=== PATIENT | male | born 1950 | race Caucasian/White ===

== ENCOUNTER 2018-02-07 00:57 | Inpatient (IN) | payer MEDICARE, MEDICAID ==
[~2018-02-07] VITALS: Ht 165.1 cm; Wt 49.9 kg
[2018-02-07] VITALS (8 sets, daily range): BP systolic 107–142; BP diastolic 50–91
[~2018-02-07 00:57] MED LIST: ACETAMINOPHEN500 M5 PO; AMOXIL250 MG ORAL; ASPIRIN EC81 MG ORAL; ATORVASTATIN CA20 MG ORAL; CLOTRIMAZOLE30 GM TP; DOCUSATE SODIU100 MG ORAL; ECONAZOLE NITRA15 GM TOP; FORTEO2.4 ML SUBQ; KONDREMUL2.5 ML/5 M PO; LEVOTHYROXINE88 MCG ORAL; LINZESS145 MCG PO; LORATADINE10 M1 PO; MILK OF MA400 MG/51 ORAL; OYSTER SHELL C500 MG PO; PINK BISMUTH262 MG PO; PROLIA60 MG/1 ML SUBQ; Q-TUSSIN DM SY120 ML PO; VITAMIN D-32000 UNI1 PO; ZYPREXA5 MG ORAL
--- NOTE | 2018-02-07 01:05 | Emergency Room Report ---
History of Present Illness General Chief Complaint: Dyspnea/Respdistress Source: EMS, PMD Present Illness HPI Patient is a 67-year-old male brought in by EMS after increased difficulty breathing. Patient prior history of developmental delay, and congestive heart failure. He had recently been diagnosed with pneumonia. The patient had been previously [facility] and subsequently discharged to the [facility]. The patient was started on nonrebreather by EMS had any shortness of breath. Patient was noted to have continued the faculty respirations as well as hypotension. Allergies: Coded Allergies: SULFA (SULFONAMIDE ANTIBIOTICS) (Verified Allergy, Unknown, 09/02/15) Patient History Past Medical History: see triage record Reviewed Nursing Documentation: PMH: Agreed; PSxH: Agreed Nursing Documentation-PMH Past Medical History Deferred: Pt Cognitively Impaired Past Medical History: No History, Except For Hx Cancer: No Hx Gastrointestinal Problems: No Hx Speech Problem: Yes - Difficulty speaking Hx Aphasia: Yes Hx Weakness: Yes - Bilateral lower extremities Review of Systems All Other Systems: limited - by mental status Physical Exam Vital Signs Date Time Temp Pulse Resp B/P (MAP) Pulse Ox O2 Delivery O2 Flow Rate FiO2 02/07/18 00:50 97.3 70 22 112/57 97 Non-Rebreather 15.0 97.3 General Appearance: alert, Chronically Ill ENT: dry mucus membranes Neck: limited range of motion Respiratory: rhonchi, stridor, wheezing Cardiovascular #1: normal peripheral pulses, no edema Gastrointestinal: normal inspection, soft Musculoskeletal: normal inspection Neurologic: motor weakness - right upper extremity, other - eyes open, incomprehensible sounds, withdraws Skin: other - eczematous rash Procedures Central Line Central Line : Consent: Emergent Central Line Lumen: triple Maximal Sterile Barrier Tech: yes cap, yes mask, yes sterile gown, yes sterile gloves, yes large sterile sheet, yes hand hygiene, yes chlorhexidine prep Central Line Postion: femoral (R) Anesthesia: Lidocaine cc's of anesthesia: 4 Complications: none Central Line Post Position: sutured, good blood return Patient Tolerated: Well Complications: None Medical Decision Making Diagnostic Impression: Primary Impression: Down syndrome Additional Impressions: Congenital heart disease, adult Pneumonia ER Course Patient presented for shortness of breath. Differential included but was not limited to anemia, pneumonia, pneumothorax, myocardial infarction, pericardial effusion, congestive heart failure, acidosis. The patient was started on supplemental oxygen. The patient was suctioned by respiratory therapist. He was noted to have a large amount of yellow secretions. Had this somewhat improved the patient's respiratory effort. Chest x-ray one view injured by me showed cardiomegaly with right lower lobe infiltrate patient was noted be relatively hypoxic. The ABG showed normal pH with a relative hypoxemia for nonrebreather.The patient was noted to have the poor IV access. The right the external jugular IV was initially placed which was noted to have subcutaneous infiltration subsequently. The patient was unable to have other IV access established. A right femoral the triple lumen catheter was placed due to lack of IV access with sterile technique. Dr. Guevara was contacted for inpatient management due to primary care physician. Labs Test 02/07/18 01:00 02/07/18 01:10 02/07/18 01:20 Arterial Blood pH 7.436 (7.350-7.450) Arterial Blood Partial Pressure CO2 41.4 mmHg (35.0-45.0) Arterial Blood Partial Pressure O2 77.7 mmHg (75.0-100.0) Arterial Blood HCO3 27.2 mmol/L (22.0-26.0) Arterial Blood Oxygen Saturation 95.2 % (95-100) Arterial Blood Base Excess 2.8 (-2-2) Kashif Test Positive Sodium Level 143 MMOL/L (136-145) Potassium Level 4.7 MMOL/L (3.5-5.1) Chloride Level 106 MMOL/L (98-107) Carbon Dioxide Level 30 MMOL/L (21-32) Anion Gap 7 mmol/L (5-15) Blood Urea Nitrogen 20 mg/dL (7-18) Creatinine 1.6 MG/DL (0.55-1.30) Estimat Glomerular Filtration Rate 43.6 mL/min (>60) Glucose Level 89 MG/DL (74-106) Calcium Level 8.4 MG/DL (8.5-10.1) Phosphorus Level 4.5 MG/DL (2.5-4.9) Magnesium Level 2.1 MG/DL (1.8-2.4) Total Bilirubin 0.3 MG/DL (0.2-1.0) Aspartate Amino Transf (AST/SGOT) 26 U/L (15-37) Alanine Aminotransferase (ALT/SGPT) 53 U/L (12-78) Alkaline Phosphatase 99 U/L (46-116) Total Creatine Kinase 47 U/L (26-308) Creatine Kinase MB 2.1 NG/ML (0.0-3.6) Creatine Kinase MB Relative Index 4.4 Troponin I 0.065 ng/mL (0.000-0.056) Total Protein 7.4 G/DL (6.4-8.2) Albumin 2.6 G/DL (3.4-5.0) Globulin 4.8 g/dL Albumin/Globulin Ratio 0.5 (1.0-2.7) White Blood Count 11.2 K/UL (4.8-10.8) Red Blood Count 4.68 M/UL (4.70-6.10) Hemoglobin 14.5 G/DL (14.2-18.0) Hematocrit 45.4 % (42.0-52.0) Mean Corpuscular Volume 97 FL (80-99) Mean Corpuscular Hemoglobin 31.0 PG (27.0-31.0) Mean Corpuscular Hemoglobin Concent 31.9 G/DL (32.0-36.0) Red Cell Distribution Width 15.0 % (11.6-14.8) Platelet Count 244 K/UL (150-450) Mean Platelet Volume 8.2 FL (6.5-10.1) Neutrophils (%) (Auto) 78.5 % (45.0-75.0) Lymphocytes (%) (Auto) 13.1 % (20.0-45.0) Monocytes (%) (Auto) 6.6 % (1.0-10.0) Eosinophils (%) (Auto) 1.1 % (0.0-3.0) Basophils (%) (Auto) 0.7 % (0.0-2.0) Last Vital Signs Date Time Temp Pulse Resp B/P (MAP) Pulse Ox O2 Delivery O2 Flow Rate FiO2 02/07/18 00:50 97.3 70 22 112/57 97 Non-Rebreather 15.0 97.3 Status: improved Disposition: ADMITTED INPATIENT Condition: Serious Teto Boyer MD Feb 07, 2018 01:05
[2018-02-07 01:42] LABS: BASOPHILS % (AUTO) 0.7 % (0.0-2.0); EOSINOPHILS % (AUTO) 1.1 % (0.0-3.0); HEMATOCRIT 45.4 % (42.0-52.0); HEMOGLOBIN 14.5 G/DL (14.2-18.0); LYMPHOCYTES % (AUTO) 13.1 % (20.0-45.0); MEAN CORPUSCULAR VOLUME 97 FL (80-99); MONOCYTES % (AUTO) 6.6 % (1.0-10.0); NEUTROPHILS % (AUTO) 78.5 % (45.0-75.0); PLATELET COUNT 244 K/UL (150-450); RED BLOOD COUNT 4.68 M/UL (4.70-6.10); WHITE BLOOD COUNT 11.2 K/UL (4.8-10.8)
[2018-02-07 01:57] LABS: ANION GAP 7 mmol/L (5-15); BLOOD UREA NITROGEN 20 mg/dL (7-18); CALCIUM 8.4 MG/DL (8.5-10.1); CARBON DIOXIDE 30 MMOL/L (21-32); CHLORIDE 106 MMOL/L (98-107); CREATININE 1.6 MG/DL (0.55-1.30); POTASSIUM 4.7 MMOL/L (3.5-5.1); SODIUM 143 MMOL/L (136-145)
[2018-02-07 02:20] LABS: ALANINE AMINOTRANSFERASE 53 U/L (12-78); ALBUMIN 2.6 G/DL (3.4-5.0); ALBUMIN/GLOBULIN RATIO 0.5 (1.0-2.7); ALKALINE PHOSPHATASE 99 U/L (46-116); ASPARTATE AMINO TRANSFERASE 26 U/L (15-37); BILIRUBIN,TOTAL 0.3 MG/DL (0.2-1.0); CKMB 2.1 NG/ML (0.0-3.6); CREATINE KINASE 47 U/L (26-308); PHOSPHORUS 4.5 MG/DL (2.5-4.9)
[2018-02-07 02:29] LABS: APPEARANCE,URINE CLEAR; BILIRUBIN, URINE NEGATIVE (NEGATIVE); COLOR,URINE PALE YELLOW; GLUCOSE, URINE (UA) NEGATIVE (NEGATIVE); KETONES,URINE NEGATIVE (NEGATIVE); LEUKOCYTE ESTERASE ,URINE NEGATIVE (NEGATIVE); NITRITE,URINE NEGATIVE (NEGATIVE); PH,URINE 6 (4.5-8.0); PROTEIN,URINE NEGATIVE (NEGATIVE); UROBILINOGEN,URINE NORMAL MG/DL (0.0-1.0)
[2018-02-07] MEDS ORDERED: Piperacillin/Tazobactam 3.375 GM in D5W 110 ML IVPB ONE (03:15)
[2018-02-07] MEDS ORDERED: METOPROLOL SUCC25 MG ORAL (06:21)
[2018-02-07] MEDS ORDERED: LEVOTHYROXINE125 MCG ORAL (06:21)
[2018-02-07] MEDS ORDERED: COLACE100 MG ORAL (06:21)
[2018-02-07] MEDS ORDERED: LEVETIRACETAM500 MG ORAL (06:21)
[2018-02-07] MEDS ORDERED: IPRAT-ALBUT 0.5-3 ML IH (06:21)
[2018-02-07] MEDS ORDERED: MIRALAX17 G2 ORAL (06:21)
[2018-02-07] MEDS ORDERED: PRAVASTATIN SOD20 M1 ORAL (06:22)
[2018-02-07] MEDS ORDERED: Vancomycin 1 GM in D5W 275 ML IVPB SCH (06:45)
[2018-02-07] MEDS ORDERED: Milk of Magnesia 30ml Ud ORAL PRN (06:45)
[2018-02-07] MEDS ORDERED: Metoprolol 5mg/5ml Inj IVP PRN (07:14)
[2018-02-07] MEDS: Albuterol/Ipratropium 3ml neb HHN SCH ×5 (07:51→23:26)
[2018-02-07] MEDS: Metoprolol Tartrate 12.5mg TAB ORAL SCH ×2 (09:00→21:00)
[2018-02-07] MEDS: Docusate 100mg cap ORAL SCH ×2 (09:00→18:00)
[2018-02-07] MEDS: Tums 500mg ORAL SCH ×3 (09:00→18:00)
--- NOTE | 2018-02-07 09:24 | History & Physical ---
Natalia Greenberg NP 02/07/18 0924: History and Physical History & Physicial dictated job# [id number] Diann Silver MD 02/07/18 1914: History and Physical History & Physicial The patient was seen and examined at bedside and all new and available data was reviewed in the patients chart. I agree with the above findings, impression and plan. (Patient seen earlier today. Signature stamp does not reflect patient encounter time.). -MD Dionicio Tobias Jacqueline Robles NP Feb 07, 2018 09:24 Diann Silver MD Feb 07, 2018 19:14
--- NOTE | 2018-02-07 09:24 | Diagnostic Imaging Report ---
Indication: Shortness of breath Technique: One view of the chest Comparison: None Findings: Heart is enlarged. Somewhat ill-defined infiltrate is seen in the right infrahilar region. There is evidence of retrocardiac consolidation. There is central bronchial wall thickening bilaterally. The pleural spaces are clear. There is pleural thickening at both lung apices Impression: Right basilar patchy infiltrate and retrocardiac consolidation Cardiomegaly Central bronchial wall thickening, suspect on the basis of chronic bronchitis although could indicate minimal interstitial edema
[2018-02-07] MEDS: levETIRAcetam 1,000mg/NS100ml 100 ML IVPB SCH ×2 (09:27→21:11)
[2018-02-07] MEDS: D5 1/2NS w/KCl 20mEq 1,000 ML IV SCH (09:28)
[2018-02-07] MEDS: Pantoprazole Inj IVP SCH (10:06)
[2018-02-07] MEDS: Vancomycin 750mg/NS 250ml IVPB SCH (10:13)
--- NOTE | 2018-02-07 12:49 | Consultation ---
Consult Note Assessment/Plan DICT # [id number] Sae Forrest MD Feb 07, 2018 12:49
[2018-02-07] MEDS: Piperacillin/Tazobactam 3.375 GM in D5W 110 ML IVPB SCH ×2 (13:40→22:11)
[2018-02-07] MEDS: Heparin 5000 units/ml inj SUBQ SCH ×2 (15:37→22:12)
[2018-02-07] MEDS ORDERED: Tubing IV Secondary IV ONE (15:46)
--- NOTE | 2018-02-07 21:30 | HX and Phyl Repo 2 Sig ---
DATE OF ADMISSION: 02/07/2018 CHIEF COMPLAINT: Shortness of breath. HISTORY OF PRESENT ILLNESS: The patient is a 67-year-old male, well-known office patient, with history of mental retardation, who was previously residing in a custodial, however, recently, during the past several months had progressive decline and had been less mobile and was transferred to a SNF, was brought in by EMS from retirement after increased difficulty breathing. He was recently admitted at [facility] due to pneumonia and was discharged a day ago to [facility]. At the retirement, he was noted to be with labored breathing. EMS was called in and the patient was transported to [facility] ER and on evaluation was admitted for pneumonia. MEDICAL HISTORY: Significant for mental retardation, hypotension, dysphagia, and congestive heart failure. ALLERGY: Noted allergic to sulfa. REVIEW OF SYSTEMS: Unable to be performed due to the patient's mental status. PHYSICAL EXAMINATION: VITAL SIGNS: On arrival to ED, blood pressure was 112/57, pulse 70, temperature 97.3, RR 22, and saturating 97% on a non-rebreather mask. GENERAL APPEARANCE: The patient is awake, able to open eyes on verbal commands, although the patient is nonverbal at baseline. HEENT: Normocephalic. Positive diplopia. NECK: Has limited motion. RESPIRATORY: Positive for rhonchi on bilateral bases and negative wheezing. CARDIOVASCULAR: S1 and S2. Regular rate and rhythm. GASTROINTESTINAL: The patient's abdomen is soft and slightly distended. Not firm. Positive bowel sounds. GENITOURINARY: The patient has a condom catheter. NEUROLOGIC: Has generalized weakness on all extremities. Unable to be fully assessed. SKIN: Has eczematous rash on both lower extremities. DIAGNOSTIC DATA: WBC 11.2, hemoglobin 14, hematocrit 45, and platelet is 244,000. Sodium 143, potassium 4.7, chloride 106, BUN 20, and creatinine 1.6. ABG showed pH 7.4, CO2 41, O2 77, and bicarb 27.2 with base excess of 2.8 and O2 saturation of 95. Lactic acid 2.7. Initial troponin 0.065. ASSESSMENT: 1. Shortness of breath, possibly secondary to pneumonia, possible sepsis. 2. Acute respiratory failure requiring BiPAP. 3. Acute kidney injury. 4. Elevated troponin, possibly from demand ischemia. 5. Developmental delay. 6. Dysphagia. 7. Eczematous rash on both lower extremities. PLAN: 1. Continue the patient on BiPAP support. 2. Monitor vitals and I and O's. 3. Keep NPO for now until fully awake and pending swallow evaluation. 4. The patient was started on IV vancomycin and Zosyn. 5. To continue breathing treatment with frequent suctioning p.r.n. 6. Continue retirement medications. 7. Monitor troponin. 8. Heparin for DVT prophylaxis. 9. Protonix for GI prophylaxis. 10. Dr. Forrest, Pulmonary consult and Dr. Johnston, ID consult. Above findings and plans were discussed with supervising physician, who agrees with plan of care. Diann Silver M.D. Natalia Greenberg N.P. DR: PEYTON JOB#: [id number] CC: APOLLO
[2018-02-08] VITALS: BP 153/63
[2018-02-08] MEDS: D5 1/2NS w/KCl 20mEq 1,000 ML IV SCH ×2 (01:02→17:30)
[2018-02-08] MEDS: Albuterol/Ipratropium 3ml neb HHN SCH ×6 (03:38→23:10)
[2018-02-08 04:00] VITALS: BP_SYST 106; BP_SYST 145; BP_DIAS 72; BP_DIAS 81
[2018-02-08] MEDS: Piperacillin/Tazobactam 3.375 GM in D5W 110 ML IVPB SCH ×3 (05:56→22:03)
[2018-02-08] MEDS: Heparin 5000 units/ml inj SUBQ SCH ×3 (06:00→22:04)
--- NOTE | 2018-02-08 06:45 | Consultation ---
DATE OF CONSULTATION: 02/07/2018 PULMONARY CONSULTATION CONSULTING PHYSICIAN: Sae Forrest M.D. REFERRING PHYSICIAN: Diann Silver M.D. REASON FOR CONSULTATION: Respiratory failure. HISTORY OF PRESENT ILLNESS: The patient is a 67-year-old male with a history of mental retardation and chronic subdural hematoma, recently admitted at [facility] and discharged on the , two days ago, after presenting with respiratory failure. He was thought to have a URI versus tracheobronchitis/early pneumonia. He was initially treated with antibiotics, but given negative procalcitonin, no infiltrates and afebrile status, antibiotics were discontinued. He was doing well on the day of discharge. The biggest issue was felt to be mucociliary clearance. He was treated with [id number] and p.r.n. DuoNebs via [employer], chest physiotherapy, and ultimately discharged back to the facility. Dr. Silver spoke with the [facility] and it was determined that the patient should remain Full Code. The patient was discharged to [facility] but he came in with EMS overnight with difficulty breathing, cough, and congestion. He was initially on a non-rebreather, but was noted to be hypoxemic. Chest x-ray was concerning for possible right lower lobe infiltrate, though on final read and upon my assessment, likely just some atelectasis. Nonetheless, the patient was started on empiric broad-spectrum antimicrobial agents and started on BiPAP. His white count is 11.2. The last CBC at [facility] on 01/30/2018, his white count was 9.7. He also had a video swallow during this last admission, which he passed for purees. He had lactic acidosis upon presentation here and an elevated troponin of 0.065. His lactic acidosis has since resolved. His UA was unremarkable. PAST MEDICAL HISTORY: 1. Down syndrome with mental retardation. 2. Pneumonia and pleural effusion in the past. 3. Hypothyroidism. 4. Congestive heart failure. 5. Eczema. 6. Chronic subdural hematomas. ALLERGIES: Sulfa. MEDICATIONS: Prior to admission, medications reviewed. Current medications, reviewed. SOCIAL HISTORY: Lives in a [facility], was at SNF. Currently, no tobacco, alcohol, or drug use. FAMILY HISTORY: Noncontributory. REVIEW OF SYSTEMS: Unobtainable. PHYSICAL EXAMINATION: VITAL SIGNS: Temperature 97.3, pulse 62, and blood pressure 107/55. GENERAL: He is a developmentally delayed male, in no acute distress on BiPAP. HEENT: Normocephalic and atraumatic. Oropharynx is clear with moist mucous membranes. NECK: Supple without lymphadenopathy. CHEST: Scattered rhonchi. HEART: Regular rhythm. ABDOMEN: Soft, nontender, and nondistended. EXTREMITIES: No cyanosis, clubbing, or edema. ANCILLARY DATA: White count 11.2, hemoglobin 14.5, and platelet count 244,000. ABG 7.43/41/77/27/95. Sodium 142, potassium 4.7, chloride 106, bicarbonate 30, BUN 20, and creatinine 1.6. Lactic acid 2.7, followup 1.7, and calcium 8.4. LFTs within normal limits. Phosphorus 4.5 and magnesium 2.1. Troponin 0.065. Total protein 7.4, albumin 2.6, and globulin 4.8. Urinalysis negative. Chest x-ray, possible right perihilar infiltrate. ASSESSMENT: The patient is a 67-year-old male with a history of mental retardation and chronic subdural hematomas, recently admitted to [facility] with tracheobronchitis and poor mucociliary clearance, now presenting with dehydration, mild troponin elevation, acute kidney injury, and possible right infrahilar infiltrate. PROBLEM LIST: 1. Respiratory failure, on BiPAP. 2. Right perihilar infiltrate, healthcare-associated pneumonia. 3. Acute kidney injury, likely dehydration. 4. Mild troponin elevation, likely demand ischemia. 5. History of recurrent aspiration pneumonia in the past. 6. Chronic subdural hematoma. 7. Mental retardation. 8. Hypothyroidism. 9. Chronic right bundle-branch block. TREATMENT PLAN: 1. Change BiPAP to p.r.n./nightly. 2. Attempt to wean off BiPAP now. 3. Titrate FiO2 to keep saturations greater than 90%. 4. Continue broad-spectrum antibiotics per ID. 5. Follow up cultures. 6. [id number] and p.r.n. DuoNebs. 7. Frequent suctioning. 8. Chest physiotherapy. 9. Mucinex and p.r.n. Robitussin. 10. Once the patient is stable off BiPAP, would advance diet with strict aspiration precautions. 11. Check D-dimer and a repeat troponin. 12. Deep venous thrombosis prophylaxis heparin subcutaneous. 13. Dr. Silver previously discussed the code status with the [facility] and it was determined for the patient to remain Full Code. Dr. Silver, thank you for allowing me to assist in the care of the patient. If I may be of any assistance in the future, please do not hesitate to ask. Sae Forrest M.D. DR: XIMENA JOB#: [id number] CC:
[2018-02-08 08:00] VITALS: BP 136/74
[2018-02-08 08:39] LABS: BASOPHILS % (AUTO) 0.8 % (0.0-2.0); EOSINOPHILS % (AUTO) 0.8 % (0.0-3.0); HEMATOCRIT 42.6 % (42.0-52.0); HEMOGLOBIN 13.7 G/DL (14.2-18.0); LYMPHOCYTES % (AUTO) 12.5 % (20.0-45.0); MEAN CORPUSCULAR VOLUME 97 FL (80-99); MONOCYTES % (AUTO) 7.2 % (1.0-10.0); NEUTROPHILS % (AUTO) 78.7 % (45.0-75.0); PLATELET COUNT 220 K/UL (150-450); RED BLOOD COUNT 4.41 M/UL (4.70-6.10); RED CELL DISTRIBUTION WIDTH 14.6 % (11.6-14.8); WHITE BLOOD COUNT 9.9 K/UL (4.8-10.8)
[2018-02-08] MEDS: Tums 500mg ORAL SCH ×3 (09:00→17:56)
[2018-02-08] MEDS: Docusate 100mg cap ORAL SCH ×2 (09:00→17:55)
[2018-02-08] MEDS: Metoprolol Tartrate 12.5mg TAB ORAL SCH ×3 (09:00→21:25)
[2018-02-08 09:05] LABS: ALANINE AMINOTRANSFERASE 35 U/L (12-78); ALBUMIN 2.5 G/DL (3.4-5.0); ALBUMIN/GLOBULIN RATIO 0.5 (1.0-2.7); ALKALINE PHOSPHATASE 90 U/L (46-116); ANION GAP 7 mmol/L (5-15); ASPARTATE AMINO TRANSFERASE 23 U/L (15-37); BILIRUBIN,TOTAL 0.8 MG/DL (0.2-1.0); BLOOD UREA NITROGEN 10 mg/dL (7-18); CALCIUM 8.6 MG/DL (8.5-10.1); CARBON DIOXIDE 26 MMOL/L (21-32); CHLORIDE 102 MMOL/L (98-107); POTASSIUM 4.2 MMOL/L (3.5-5.1); SODIUM 135 MMOL/L (136-145)
[2018-02-08] MEDS: Vancomycin 750mg/NS 250ml IVPB SCH (09:26)
[2018-02-08] MEDS: levETIRAcetam 1,000mg/NS100ml 100 ML IVPB SCH ×2 (09:27→21:24)
[2018-02-08] MEDS: Pantoprazole Inj IVP SCH (09:32)
--- NOTE | 2018-02-08 11:03 | Diagnostic Imaging Report ---
Indication: Dyspnea Comparison: 02/07/2018 A single view chest radiograph was obtained. Findings: Pulmonary edema has resolved essentially since the last exam. Heart remains mildly enlarged though improved. Vascular pedicle is normal size. IMPRESSION: Interval diuresis or dialysis with improved vascular status and resolution of CHF
--- NOTE | 2018-02-08 11:04 | Infectious Diseases Prog Note ---
Assessment/Plan Assessment/Plan antibiotics : vancomycin iv, zosyn A 1. pneumonia 2. respiratory failure 3. subdural hematoma 4. mental retardation P 1. continue vancomycin iv, zosyn 2. will follow up cultures Subjective ROS Limited/Unobtainable: Yes Allergies: Coded Allergies: SULFA (SULFONAMIDE ANTIBIOTICS) (Verified Allergy, Unknown, 09/02/15) Objective Vital Signs Last 24 Hour Vital Signs Date Time Temp Pulse Resp B/P (MAP) Pulse Ox O2 Delivery O2 Flow Rate FiO2 02/08/18 10:40 71 18 97 Full Face 60 02/08/18 09:00 75 136/74 02/08/18 08:40 75 17 99 Facial 60 02/08/18 08:39 61 02/08/18 08:00 Bi-pap 02/08/18 08:00 98.5 75 17 136/74 (94) 95 98.5 02/08/18 08:00 60 02/08/18 07:29 60 02/08/18 07:29 70 17 100 Bi-pap 60 02/08/18 07:18 74 17 100 Facial 60 02/08/18 07:17 72 16 100 Bi-pap 60 02/08/18 05:30 72 19 100 Full Face 60 02/08/18 04:00 98.0 70 18 106/72 (83) 99 98.0 02/08/18 04:00 Bi-pap 02/08/18 04:00 60 02/08/18 04:00 72 02/08/18 03:48 60 02/08/18 03:48 78 18 100 Bi-pap 60 02/08/18 03:39 69 18 100 Full Face 60 02/08/18 03:38 69 18 100 Bi-pap 60 02/08/18 01:30 75 18 100 Facial 60 02/08/18 00:00 Bi-pap 02/08/18 00:00 84 02/08/18 00:00 97.6 73 22 153/63 (93) 100 97.6 02/08/18 00:00 60 02/07/18 23:46 73 18 100 Bi-pap 60 02/07/18 23:46 60 02/07/18 23:28 73 18 100 Facial 60 02/07/18 23:26 72 18 100 Bi-pap 60 02/07/18 21:00 71 18 99 Facial 60 02/07/18 21:00 64 113/91 02/07/18 20:00 98.1 64 17 113/91 (98) 100 98.1 02/07/18 20:00 60 02/07/18 20:00 Bi-pap 02/07/18 20:00 71 02/07/18 19:24 69 18 100 Bi-pap 60 02/07/18 19:24 60 02/07/18 19:06 73 18 100 Facial 60 02/07/18 19:03 74 18 100 Bi-pap 60 02/07/18 17:10 62 18 98 Facial 60 02/07/18 17:08 67 02/07/18 16:00 60 02/07/18 16:00 97.7 64 18 142/50 (80) 100 97.7 02/07/18 16:00 Bi-pap 02/07/18 15:15 60 18 100 Bi-pap 60 02/07/18 15:12 60 18 98 Facial 60 02/07/18 15:06 60 02/07/18 15:06 63 16 98 Bi-pap 60 02/07/18 14:30 60 02/07/18 12:41 52 18 98 Full Face 60 02/07/18 12:00 60 02/07/18 12:00 Bi-pap 02/07/18 12:00 97.3 62 18 107/55 (72) 100 97.3 02/07/18 11:13 66 18 100 Bi-pap 60 02/07/18 11:07 52 18 98 Full Face 60 02/07/18 11:00 60 02/07/18 11:00 60 18 98 Bi-pap 60 Height (Feet): 5 Height (Inches): 2.00 Weight (Pounds): 108 HEENT: other - on bipap Respiratory/Chest: lungs clear Cardiovascular: normal rate, regular rhythm, no gallop/murmur Abdomen: soft, non tender Extremities: no edema, other - right groin catheter Skin: rash - erythematous rash on legs Microbiology Date/Time Source Procedure Growth Status 02/07/18 01:10 Blood Blood Culture - Preliminary NO GROWTH AFTER 24 HOURS Resulted 02/07/18 00:50 Blood Blood Culture - Preliminary NO GROWTH AFTER 24 HOURS Resulted 02/07/18 02:19 Rectum Received Laboratory Tests Test 02/07/18 18:18 02/07/18 18:19 02/08/18 08:20 D-Dimer 1.92 mg/L FEU (0.00-0.49) H Troponin I 0.032 ng/mL (0.000-0.056) 0.042 ng/mL (0.000-0.056) White Blood Count 9.9 K/UL (4.8-10.8) Red Blood Count 4.41 M/UL (4.70-6.10) L Hemoglobin 13.7 G/DL (14.2-18.0) L Hematocrit 42.6 % (42.0-52.0) Mean Corpuscular Volume 97 FL (80-99) Mean Corpuscular Hemoglobin 31.0 PG (27.0-31.0) Mean Corpuscular Hemoglobin Concent 32.1 G/DL (32.0-36.0) Red Cell Distribution Width 14.6 % (11.6-14.8) Platelet Count 220 K/UL (150-450) Mean Platelet Volume 7.6 FL (6.5-10.1) Neutrophils (%) (Auto) 78.7 % (45.0-75.0) H Lymphocytes (%) (Auto) 12.5 % (20.0-45.0) L Monocytes (%) (Auto) 7.2 % (1.0-10.0) Eosinophils (%) (Auto) 0.8 % (0.0-3.0) Basophils (%) (Auto) 0.8 % (0.0-2.0) Sodium Level 135 MMOL/L (136-145) L Potassium Level 4.2 MMOL/L (3.5-5.1) Chloride Level 102 MMOL/L (98-107) Carbon Dioxide Level 26 MMOL/L (21-32) Anion Gap 7 mmol/L (5-15) Blood Urea Nitrogen 10 mg/dL (7-18) Creatinine 1.0 MG/DL (0.55-1.30) Estimat Glomerular Filtration Rate > 60 mL/min (>60) Glucose Level 120 MG/DL (74-106) H Calcium Level 8.6 MG/DL (8.5-10.1) Total Bilirubin 0.8 MG/DL (0.2-1.0) Aspartate Amino Transf (AST/SGOT) 23 U/L (15-37) Alanine Aminotransferase (ALT/SGPT) 35 U/L (12-78) Alkaline Phosphatase 90 U/L (46-116) Pro-B-Type Natriuretic Peptide 894 pg/mL (0-125) H Total Protein 7.4 G/DL (6.4-8.2) Albumin 2.5 G/DL (3.4-5.0) L Globulin 4.9 g/dL Albumin/Globulin Ratio 0.5 (1.0-2.7) L Current Medications Medications (Trade) Dose Ordered Sig/Eddy Route PRN Reason Start Time Stop Time Status Last Admin Dose Admin Acetaminophen (Tylenol) 650 mg Q6H PRN ORAL Mild Pain/Temp > 100.5 02/07/18 06:45 03/09/18 06:44 Albuterol/ Ipratropium (Albuterol/ Ipratropium) 3 ml Q4H HHN 02/07/18 06:45 02/12/18 06:44 02/08/18 07:17 Atorvastatin Calcium (Lipitor) 10 mg BEDTIME ORAL 02/07/18 21:00 03/09/18 20:59 Calcium Carbonate (Tums) 500 mg THREE TIMES A DAY ORAL 02/07/18 09:00 03/09/18 08:59 Dextrose/ Electrolytes 1,000 ml @ 60 mls/hr [id number] IV 02/07/18 08:00 03/09/18 07:59 02/08/18 01:02 Docusate Sodium (Colace) 100 mg TWICE A DAY ORAL 02/07/18 09:00 03/09/18 08:59 Heparin Sodium (Porcine) (Heparin 5000 units/ml) 5,000 units EVERY 8 HOURS SUBQ 02/07/18 14:00 03/09/18 13:59 02/08/18 06:00 Levetiracetam 100 ml @ 400 mls/hr Q12HR IVPB 02/07/18 09:00 03/09/18 08:59 02/08/18 09:27 Levothyroxine Sodium (Synthroid) 125 mcg DAILY IV 02/07/18 09:00 03/09/18 08:59 02/08/18 09:04 Magnesium Hydroxide (Mom) 30 ml HSPRN PRN ORAL Constipation 02/07/18 06:45 03/09/18 06:44 Metoprolol Tartrate (Lopressor) 5 mg Q4H PRN IVP hr>130 02/07/18 07:14 03/09/18 07:13 Metoprolol Tartrate (Lopressor) 12.5 mg Q12HR ORAL 02/07/18 09:00 03/09/18 08:59 Olanzapine (ZyPREXA) 5 mg DAILY ORAL 02/07/18 09:00 03/09/18 08:59 Pantoprazole (Protonix) 40 mg DAILY IVP 02/07/18 09:21 03/09/18 09:20 02/08/18 09:32 Piperacillin Sod/ Tazobactam Sod 3.375 gm/Dextrose 110 ml @ 27.5 mls/hr EVERY 8 HOURS IVPB 02/07/18 14:00 02/12/18 13:59 02/08/18 05:56 Vancomycin HCl (Vanco rx to dose) 1 ea DAILY PRN MISC PER PHARMACY 02/07/18 07:30 03/09/18 07:29 Vancomycin/Sodium Chloride 250 ml @ 166.667 mls/hr Q24H IVPB 02/07/18 09:00 02/12/18 08:59 02/08/18 09:26 NINA ALVARADO Feb 08, 2018 11:04
[2018-02-08 12:00] VITALS: BP 122/78
--- NOTE | 2018-02-08 13:15 | General Progress Note ---
Assessment/Plan Status: progressing Assessment/Plan ASSESSMENT: 1. Shortness of breath, possibly secondary to pneumonia, possible sepsis. 2. Acute respiratory failure requiring BiPAP. 3. Acute kidney injury. 4. Elevated troponin, possibly from demand ischemia. 5. Developmental delay. 6. Dysphagia. 7. Psoriasis. PLAN: 1. Continue the patient on BiPAP support. 2. Monitor vitals and I and O's. 3. Keep NPO for now until fully awake and pending swallow evaluation. 4. The patient was started on IV vancomycin and Zosyn. 5. To continue breathing treatment with frequent suctioning p.r.n. 6. Continue mcc medications. 7. Monitor troponin. 8. Heparin for DVT prophylaxis. 9. Protonix for GI prophylaxis. 10. Dr. Forrest, Pulmonary consult and Dr. Johnston, ID consult. will order MRI brain to rule out cva gi consult Subjective Date patient seen: Feb 08, 2018 ROS Limited/Unobtainable: Yes Allergies: Coded Allergies: SULFA (SULFONAMIDE ANTIBIOTICS) (Verified Allergy, Unknown, 09/02/15) Objective Last 24 Hour Vital Signs Date Time Temp Pulse Resp B/P (MAP) Pulse Ox O2 Delivery O2 Flow Rate FiO2 02/08/18 12:00 97.3 76 20 122/78 (93) 100 97.3 02/08/18 11:29 68 16 98 Bi-pap 60 02/08/18 10:40 71 18 97 Full Face 60 02/08/18 09:00 75 136/74 02/08/18 08:40 75 17 99 Facial 60 02/08/18 08:39 61 02/08/18 08:00 Bi-pap 02/08/18 08:00 98.5 75 17 136/74 (94) 95 98.5 02/08/18 08:00 60 02/08/18 07:29 60 02/08/18 07:29 70 17 100 Bi-pap 60 02/08/18 07:18 74 17 100 Facial 60 02/08/18 07:17 72 16 100 Bi-pap 60 02/08/18 05:30 72 19 100 Full Face 60 02/08/18 04:00 98.0 70 18 106/72 (83) 99 98.0 02/08/18 04:00 Bi-pap 02/08/18 04:00 60 02/08/18 04:00 72 10/18 03:48 60 02/08/18 03:48 78 18 100 Bi-pap 60 02/08/18 03:39 69 18 100 Full Face 60 02/08/18 03:38 69 18 100 Bi-pap 60 02/08/18 01:30 75 18 100 Facial 60 02/08/18 00:00 Bi-pap 02/08/18 00:00 84 02/08/18 00:00 97.6 73 22 153/63 (93) 100 97.6 02/08/18 00:00 60 02/07/18 23:46 73 18 100 Bi-pap 60 02/07/18 23:46 60 02/07/18 23:28 73 18 100 Facial 60 02/07/18 23:26 72 18 100 Bi-pap 60 02/07/18 21:00 71 18 99 Facial 60 02/07/18 21:00 64 113/91 02/07/18 20:00 98.1 64 17 113/91 (98) 100 98.1 02/07/18 20:00 60 02/07/18 20:00 Bi-pap 02/07/18 20:00 71 02/07/18 19:24 69 18 100 Bi-pap 60 02/07/18 19:24 60 02/07/18 19:06 73 18 100 Facial 60 02/07/18 19:03 74 18 100 Bi-pap 60 02/07/18 17:10 62 18 98 Facial 60 02/07/18 17:08 67 02/07/18 16:00 60 02/07/18 16:00 97.7 64 18 142/50 (80) 100 97.7 02/07/18 16:00 Bi-pap 02/07/18 15:15 60 18 100 Bi-pap 60 02/07/18 15:12 60 18 98 Facial 60 02/07/18 15:06 60 02/07/18 15:06 63 16 98 Bi-pap 60 02/07/18 14:30 60 Intake and Output 02/07/18 02/08/18 19:00 07:00 Intake Total 1025.834 ml 897.5 ml Output Total 400 ml 700 ml Balance 625.834 ml 197.5 ml Intake Oral 0 ml IV Total 1025.834 ml 897.5 ml Output Urine Total 400 ml 700 ml Laboratory Tests 02/07/18 18:18: D-Dimer 1.92H 02/07/18 18:19: Troponin I 0.032 02/08/18 08:20: Troponin I 0.042, White Blood Count 9.9, Red Blood Count 4.41L, Hemoglobin 13.7L , Hematocrit 42.6, Mean Corpuscular Volume 97, Mean Corpuscular Hemoglobin 31.0 , Mean Corpuscular Hemoglobin Concent 32.1, Red Cell Distribution Width 14.6, Platelet Count 220, Mean Platelet Volume 7.6, Neutrophils (%) (Auto) 78.7H, Lymphocytes (%) (Auto) 12.5L, Monocytes (%) (Auto) 7.2, Eosinophils (%) (Auto) 0.8, Basophils (%) (Auto) 0.8, Sodium Level 135L, Potassium Level 4.2, Chloride Level 102, Carbon Dioxide Level 26, Anion Gap 7, Blood Urea Nitrogen 10, Creatinine 1.0, Estimat Glomerular Filtration Rate > 60, Glucose Level 120H, Calcium Level 8.6, Total Bilirubin 0.8, Aspartate Amino Transf (AST/SGOT) 23, Alanine Aminotransferase (ALT/SGPT) 35, Alkaline Phosphatase 90, Pro-B-Type Natriuretic Peptide 894H, Total Protein 7.4, Albumin 2.5L, Globulin 4.9, Albumin /Globulin Ratio 0.5L Height (Feet): 5 Height (Inches): 2.00 Weight (Pounds): 108 General Appearance: no apparent distress, alert EENT: PERRL/EOMI, pharynx normal Neck: non-tender, supple Cardiovascular: normal rate, regular rhythm, no gallop/murmur, no JVD Respiratory/Chest: no respiratory distress Abdomen: non tender, soft, no mass Extremities: non-tender, normal inspection, no calf tenderness Edema: no edema noted Arm (L), no edema noted Arm (R), no edema noted Leg (L), no edema noted Leg (R), no edema noted Pedal (L), no edema noted Pedal (R), no edema noted Generalized Neurologic: responsive Lymphatic: normal anterior cervical (L), normal anterior cervical (R), normal posterior cervical (L), normal posterior cervical (R), normal submandibular (L) , normal submandibular (R), normal supraclavicular (L), normal supraclavicular ( R), normal axillary (L), normal axillary (R), normal inguinal (L), normal inguinal (R), normal other Diann Silver MD Feb 08, 2018 13:15
[2018-02-08 16:00] VITALS: BP_SYST 118; BP_SYST 91; BP_DIAS 53; BP_DIAS 87
--- NOTE | 2018-02-08 16:45 | Consultation ---
DATE OF CONSULTATION: 02/07/2018 INFECTIOUS DISEASE CONSULTATION CONSULTING PHYSICIAN: Wilbur Escudero M.D. This consult is for coverage of Dr. Johnston. PRIMARY ATTENDING PHYSICIAN: Diann Silver M.D. REASON FOR CONSULTATION: Pneumonia, bronchitis. HISTORY OF PRESENT ILLNESS: This is a 67-year-old white male admitted from a nursing facility because of shortness of breath. The patient has developmental delay and is not a source of history. He has history of recent hospitalization in [facility] because of pneumonia. From there, he was transferred to [facility]. PAST MEDICAL HISTORY: Significant for Down syndrome, hypothyroidism, seizure disorder, CHF. ALLERGIES: Allergic to sulfa drugs. MEDICATIONS: Atorvastatin Zosyn heparin Protonix Keppra levothyroxine Colace Zyprexa, metoprolol, vancomycin, albuterol/ipratropium inhaler, Tylenol, milk of magnesia. SOCIAL HISTORY: long-term resident. No history obtainable by the patient. PHYSICAL EXAMINATION: VITAL SIGNS: Temperature 97.3, pulse 66, blood pressure is 124/65. GENERAL APPEARANCE: The patient is on BiPAP. HEENT: He has pink conjunctivae. HEART: He has normal rate. LUNGS: He has poor expansion and decreased sounds. There is some mild wheezing. ABDOMEN: Soft, nontender. EXTREMITIES: He has no edema. LABORATORY AND DIAGNOSTIC DATA: WBC 11.2, hemoglobin 14.5, hematocrit 45.4, platelet 244,000. Sodium 143, potassium 4.7, chloride 106, bicarbonate 30, BUN 20, creatinine 1.6. Lactic acid first was 2.7 and came down to 1.7. Troponin is slightly elevated at 0.065. LFT are within normal limit. Chest x-ray showed right basilar patchy infiltrate, retrocardiac consolidation, central bronchioli thickening suspicious for chronic bronchitis. IMPRESSION: Pneumonia, chronic bronchitis, developmental delay likely Down syndrome, lactic acidosis that resolved, hypothyroidism, CHF by history, seizure disorder by history. RECOMMENDATION: We will continue with vancomycin and Zosyn. We will follow up the cultures. At the end of my exam, I thank Dr. Silver for involving me in the care of this patient. Wilbur Escudero M.D. DR: Ata JOB#: [id number] CC:
[2018-02-08 20:00] VITALS: BP 101/60
--- NOTE | 2018-02-08 22:31 | Pulmonology Progress Note ---
Assessment/Plan Assessment/Plan PULMONARY FOLLOW UP NOTE HISTORY OF PRESENT ILLNESS: The patient is a 67-year-old male with a history of mental retardation and chronic subdural hematoma, recently admitted at [facility] and discharged on the , two days ago, after presenting with respiratory failure. He was thought to have a URI versus tracheobronchitis/early pneumonia. He was initially treated with antibiotics, but given negative procalcitonin, no infiltrates and afebrile status, antibiotics were discontinued. He was doing well on the day of discharge. The biggest issue was felt to be mucociliary clearance. He was treated with [id number] and p.r.n. DuoNebs via [facility], chest physiotherapy, and ultimately discharged back to the facility. Dr. Silver spoke with the [facility] and it was determined that the patient should remain Full Code. The patient was discharged to [facility] but he came in with EMS overnight with difficulty breathing, cough, and congestion. He was initially on a non-rebreather, but was noted to be hypoxemic. Chest x-ray was concerning for possible right lower lobe infiltrate, though on final read and upon my assessment, likely just some atelectasis. Nonetheless, the patient was started on empiric broad-spectrum antimicrobial agents and started on BiPAP. His white count is 11.2. The last CBC at [facility] on 01/30/2018, his white count was 9.7. He also had a video swallow during this last admission, which he passed for purees. He had lactic acidosis upon presentation here and an elevated troponin of 0.065. His lactic acidosis has since resolved. His UA was unremarkable. PAST MEDICAL HISTORY: 1. Down syndrome with mental retardation. 2. Pneumonia and pleural effusion in the past. 3. Hypothyroidism. 4. Congestive heart failure. 5. Eczema. 6. Chronic subdural hematomas. ALLERGIES: Sulfa. MEDICATIONS: Prior to admission, medications reviewed. Current medications, reviewed. SOCIAL HISTORY: Lives in a alf for mentally challenged patients, was at SNF. Currently, no tobacco, alcohol, or drug use. FAMILY HISTORY: Noncontributory. REVIEW OF SYSTEMS: Unobtainable. PHYSICAL EXAMINATION: VITAL SIGNS: Temperature 97.3, pulse 62, and blood pressure 107/55. GENERAL: He is a developmentally delayed male, in no acute distress on BiPAP. HEENT: Normocephalic and atraumatic. Oropharynx is clear with moist mucous membranes. NECK: Supple without lymphadenopathy. CHEST: Scattered rhonchi. HEART: Regular rhythm. ABDOMEN: Soft, nontender, and nondistended. EXTREMITIES: No cyanosis, clubbing, or edema. ANCILLARY DATA: White count 11.2, hemoglobin 14.5, and platelet count 244,000. ABG 7.43/41/77/27/95. Sodium 142, potassium 4.7, chloride 106, bicarbonate 30, BUN 20, and creatinine 1.6. Lactic acid 2.7, followup 1.7, and calcium 8.4. LFTs within normal limits. Phosphorus 4.5 and magnesium 2.1. Troponin 0.065. Total protein 7.4, albumin 2.6, and globulin 4.8. Urinalysis negative. Chest x-ray, possible right perihilar infiltrate. ASSESSMENT: The patient is a 67-year-old male with a history of mental retardation and chronic subdural hematomas, recently admitted to [facility] with tracheobronchitis and poor mucociliary clearance, now presenting with dehydration, mild troponin elevation, acute kidney injury, and possible right infrahilar infiltrate. PROBLEM LIST: 1. Respiratory failure, on BiPAP. 2. Right perihilar infiltrate, healthcare-associated pneumonia. 3. Acute kidney injury, likely dehydration. 4. Mild troponin elevation, likely demand ischemia. 5. History of recurrent aspiration pneumonia in the past. 6. Chronic subdural hematoma. 7. Mental retardation. 8. Hypothyroidism. 9. Chronic right bundle-branch block. TREATMENT PLAN: 1. Change BiPAP to p.r.n./nightly. 2. Attempt to wean off BiPAP now. 3. Titrate FiO2 to keep saturations greater than 90%. 4. Continue broad-spectrum antibiotics per ID. 5. Follow up cultures. 6. [id number] and p.r.n. DuoNebs. 7. Frequent suctioning. 8. Chest physiotherapy. 9. Mucinex and p.r.n. Robitussin. 10. Once the patient is stable off BiPAP, would advance diet with strict aspiration precautions. 11. Check D-dimer and a repeat troponin. 12. Deep venous thrombosis prophylaxis heparin subcutaneous. 13. Dr. Silver previously [facility] and it was determined for the patient to remain Full Code. Subjective ROS Limited/Unobtainable: No Allergies: Coded Allergies: SULFA (SULFONAMIDE ANTIBIOTICS) (Verified Allergy, Unknown, 09/02/15) Objective Last 24 Hour Vital Signs Date Time Temp Pulse Resp B/P (MAP) Pulse Ox O2 Delivery O2 Flow Rate FiO2 02/08/18 20:07 60 18 100 Venturi Mask 12.0 50 02/08/18 19:58 63 20 95 Venturi Mask 12.0 50 02/08/18 16:00 Venturi Mask 02/08/18 16:00 97.8 56 16 118/87 (97) 100 97.8 02/08/18 15:34 54 18 100 Bi-pap 60 02/08/18 15:33 56 02/08/18 15:27 56 19 100 Bi-pap 60 02/08/18 14:30 50 02/08/18 14:30 74 23 99 Full Face 50 02/08/18 12:40 73 16 100 Full Face 60 02/08/18 12:00 60 02/08/18 12:00 Bi-pap 02/08/18 12:00 97.3 76 20 122/78 (93) 100 97.3 02/08/18 11:57 64 02/08/18 11:36 66 16 100 Bi-pap 60 02/08/18 11:36 60 02/08/18 11:29 68 16 98 Bi-pap 60 02/08/18 10:40 71 18 97 Full Face 60 02/08/18 09:00 75 136/74 02/08/18 08:40 75 17 99 Facial 60 02/08/18 08:39 61 02/08/18 08:00 Bi-pap 02/08/18 08:00 98.5 75 17 136/74 (94) 95 98.5 02/08/18 08:00 60 02/08/18 07:29 60 02/08/18 07:29 70 17 100 Bi-pap 60 02/08/18 07:18 74 17 100 Facial 60 02/08/18 07:17 72 16 100 Bi-pap 60 02/08/18 05:30 72 19 100 Full Face 60 02/08/18 04:00 98.0 70 18 106/72 (83) 99 98.0 02/08/18 04:00 Bi-pap 02/08/18 04:00 60 02/08/18 04:00 72 02/08/18 03:48 60 02/08/18 03:48 78 18 100 Bi-pap 60 02/08/18 03:39 69 18 100 Full Face 60 02/08/18 03:38 69 18 100 Bi-pap 60 02/08/18 01:30 75 18 100 Facial 60 02/08/18 00:00 Bi-pap 02/08/18 00:00 84 02/08/18 00:00 97.6 73 22 153/63 (93) 100 97.6 02/08/18 00:00 60 02/07/18 23:46 73 18 100 Bi-pap 60 02/07/18 23:46 60 02/07/18 23:28 73 18 100 Facial 60 02/07/18 23:26 72 18 100 Bi-pap 60 Intake and Output 02/07/18 02/08/18 19:00 07:00 Intake Total 1025.834 ml 897.5 ml Output Total 400 ml 700 ml Balance 625.834 ml 197.5 ml Intake Oral 0 ml IV Total 1025.834 ml 897.5 ml Output Urine Total 400 ml 700 ml Microbiology Date/Time Source Procedure Growth Status 02/07/18 01:10 Blood Blood Culture - Preliminary Resulted 02/07/18 00:50 Blood Blood Culture - Preliminary Resulted 02/07/18 02:19 Rectum Received Laboratory Tests 02/08/18 08:20: White Blood Count 9.9, Red Blood Count 4.41L, Hemoglobin 13.7L, Hematocrit 42.6 , Mean Corpuscular Volume 97, Mean Corpuscular Hemoglobin 31.0, Mean Corpuscular Hemoglobin Concent 32.1, Red Cell Distribution Width 14.6, Platelet Count 220, Mean Platelet Volume 7.6, Neutrophils (%) (Auto) 78.7H, Lymphocytes ( %) (Auto) 12.5L, Monocytes (%) (Auto) 7.2, Eosinophils (%) (Auto) 0.8, Basophils (%) (Auto) 0.8, Sodium Level 135L, Potassium Level 4.2, Chloride Level 102, Carbon Dioxide Level 26, Anion Gap 7, Blood Urea Nitrogen 10, Creatinine 1.0, Estimat Glomerular Filtration Rate > 60, Glucose Level 120H, Calcium Level 8.6, Total Bilirubin 0.8, Aspartate Amino Transf (AST/SGOT) 23, Alanine Aminotransferase (ALT/SGPT) 35, Alkaline Phosphatase 90, Troponin I 0.042, Pro-B-Type Natriuretic Peptide 894H, Total Protein 7.4, Albumin 2.5L, Globulin 4.9, Albumin/Globulin Ratio 0.5L Current Medications Medications (Trade) Dose Ordered Sig/Eddy Route PRN Reason Start Time Stop Time Status Last Admin Dose Admin Acetaminophen (Tylenol) 650 mg Q6H PRN ORAL Mild Pain/Temp > 100.5 02/07/18 06:45 03/09/18 06:44 Albuterol/ Ipratropium (Albuterol/ Ipratropium) 3 ml Q4H HHN 02/07/18 06:45 02/12/18 06:44 02/08/18 19:58 Atorvastatin Calcium (Lipitor) 10 mg BEDTIME ORAL 02/07/18 21:00 03/09/18 20:59 Calcium Carbonate (Tums) 500 mg THREE TIMES A DAY ORAL 02/07/18 09:00 03/09/18 08:59 Dextrose/ Electrolytes 1,000 ml @ 60 mls/hr [id number] IV 02/07/18 08:00 03/09/18 07:59 02/08/18 17:30 Docusate Sodium (Colace) 100 mg TWICE A DAY ORAL 02/07/18 09:00 03/09/18 08:59 Heparin Sodium (Porcine) (Heparin 5000 units/ml) 5,000 units EVERY 8 HOURS SUBQ 02/07/18 14:00 03/09/18 13:59 02/08/18 22:04 Levetiracetam 100 ml @ 400 mls/hr Q12HR IVPB 02/07/18 09:00 03/09/18 08:59 02/08/18 21:24 Levothyroxine Sodium (Synthroid) 125 mcg DAILY IV 02/07/18 09:00 03/09/18 08:59 02/08/18 09:04 Magnesium Hydroxide (Mom) 30 ml HSPRN PRN ORAL Constipation 02/07/18 06:45 03/09/18 06:44 Metoprolol Tartrate (Lopressor) 5 mg Q4H PRN IVP hr>130 02/07/18 07:14 03/09/18 07:13 Metoprolol Tartrate (Lopressor) 12.5 mg Q12HR ORAL 02/07/18 09:00 03/09/18 08:59 Olanzapine (ZyPREXA) 5 mg DAILY ORAL 02/07/18 09:00 03/09/18 08:59 Pantoprazole (Protonix) 40 mg DAILY IVP 02/07/18 09:21 03/09/18 09:20 02/08/18 09:32 Piperacillin Sod/ Tazobactam Sod 3.375 gm/Dextrose 110 ml @ 27.5 mls/hr EVERY 8 HOURS IVPB 02/07/18 14:00 02/12/18 13:59 02/08/18 22:03 Vancomycin HCl (Vanco rx to dose) 1 ea DAILY PRN MISC PER PHARMACY 02/07/18 07:30 03/09/18 07:29 Vancomycin/Sodium Chloride 250 ml @ 166.667 mls/hr Q24H IVPB 02/07/18 09:00 02/12/18 08:59 02/08/18 09:26 Figueroa Redd MD Feb 08, 2018 22:31
[2018-02-09] VITALS: BP 128/52
[2018-02-09] MEDS: Albuterol/Ipratropium 3ml neb HHN SCH ×6 (02:51→22:35)
[2018-02-09 04:00] VITALS: BP 134/55
[2018-02-09] MEDS: Piperacillin/Tazobactam 3.375 GM in D5W 110 ML IVPB SCH ×3 (05:54→21:27)
[2018-02-09] MEDS: Heparin 5000 units/ml inj SUBQ SCH ×4 (05:56→21:40)
[2018-02-09 08:00] VITALS: BP 93/66
[2018-02-09] MEDS: Tums 500mg ORAL SCH ×3 (09:00→17:44)
[2018-02-09] MEDS: Docusate 100mg cap ORAL SCH ×2 (09:00→17:44)
[2018-02-09] MEDS: Metoprolol Tartrate 12.5mg TAB ORAL SCH ×2 (09:00→20:17)
[2018-02-09] MEDS: levETIRAcetam 1,000mg/NS100ml 100 ML IVPB SCH ×2 (09:17→20:18)
[2018-02-09] MEDS: Vancomycin 750mg/NS 250ml IVPB SCH (09:18)
[2018-02-09] MEDS: Pantoprazole Inj IVP SCH (09:19)
[2018-02-09] MEDS: D5 1/2NS w/KCl 20mEq 1,000 ML IV SCH (09:30)
--- NOTE | 2018-02-09 10:58 | Infectious Diseases Prog Note ---
Assessment/Plan Assessment/Plan antibiotics : vancomycin iv, zosyn A 1. pneumonia 2. respiratory failure 3. subdural hematoma 4. mental retardation 5. staph aureus sepsis r/o endocarditis P 1. continue vancomycin iv, zosyn 2. will follow up cultures 3. 2 d echo Subjective ROS Limited/Unobtainable: Yes Allergies: Coded Allergies: SULFA (SULFONAMIDE ANTIBIOTICS) (Verified Allergy, Unknown, 09/02/15) Objective Vital Signs Last 24 Hour Vital Signs Date Time Temp Pulse Resp B/P (MAP) Pulse Ox O2 Delivery O2 Flow Rate FiO2 02/09/18 09:00 85 93/66 02/09/18 08:00 88 02/09/18 08:00 98.5 85 22 93/66 (75) 97 98.5 02/09/18 06:54 66 20 100 Venturi Mask 12.0 50 02/09/18 06:49 98 Venturi Mask 12.0 50 02/09/18 06:49 Venturi Mask 12.0 50 02/09/18 06:48 64 19 97 Venturi Mask 12.0 50 02/09/18 05:15 76 18 99 Full Face 50 02/09/18 04:00 50 02/09/18 04:00 Venturi Mask 02/09/18 04:00 72 02/09/18 04:00 98.7 83 20 134/55 (81) 99 98.7 02/09/18 03:04 70 23 100 Bi-pap 50 02/09/18 02:51 63 18 99 Full Face 50 02/09/18 02:51 63 18 99 Bi-pap 50 02/09/18 00:56 73 18 98 Full Face 50 02/09/18 00:00 Venturi Mask 02/09/18 00:00 50 02/09/18 00:00 98.5 83 22 128/52 (77) 97 98.5 02/09/18 00:00 79 02/08/18 23:25 78 21 100 Bi-pap 50 02/08/18 23:10 75 19 100 Bi-pap 50 02/08/18 23:08 75 19 100 Full Face 50 02/08/18 20:07 60 18 100 Venturi Mask 12.0 50 02/08/18 20:00 50 02/08/18 20:00 97.5 60 16 101/60 (74) 100 97.5 02/08/18 20:00 Venturi Mask 02/08/18 19:58 63 20 95 Venturi Mask 12.0 50 02/08/18 19:58 97 Venturi Mask 12.0 50 02/08/18 19:58 Venturi Mask 12.0 50 02/08/18 16:00 Venturi Mask 02/08/18 16:00 97.8 56 16 118/87 (97) 100 97.8 02/08/18 15:34 54 18 100 Bi-pap 60 02/08/18 15:33 56 02/08/18 15:27 56 19 100 Bi-pap 60 02/08/18 14:30 50 02/08/18 14:30 74 23 99 Full Face 50 02/08/18 12:40 73 16 100 Full Face 60 02/08/18 12:00 60 02/08/18 12:00 Bi-pap 02/08/18 12:00 97.3 76 20 122/78 (93) 100 97.3 02/08/18 11:57 64 02/08/18 11:36 66 16 100 Bi-pap 60 02/08/18 11:36 60 02/08/18 11:29 68 16 98 Bi-pap 60 Height (Feet): 5 Height (Inches): 2.00 Weight (Pounds): 114 HEENT: other - off bipap Respiratory/Chest: lungs clear Cardiovascular: normal rate, regular rhythm, no gallop/murmur Abdomen: soft, non tender Extremities: no edema Skin: rash - erythematous on legs Microbiology Date/Time Source Procedure Growth Status 02/07/18 01:10 Blood Blood Culture - Preliminary Staphylococcus Aureus Resulted 02/07/18 00:50 Blood Blood Culture - Preliminary Staphylococcus Aureus Resulted 02/08/18 13:00 Sputum Gram Stain Pending Resulted 02/08/18 13:00 Sputum Sputum Culture - Preliminary Resulted 02/07/18 02:19 Rectum - Final NO CARBAPENEM-RESISTANT ENTEROBACTERI... Complete 02/07/18 02:19 Rectum VRE Culture - Final Enterococcus Faecalis - Vre Complete Current Medications Medications (Trade) Dose Ordered Sig/Eddy Route PRN Reason Start Time Stop Time Status Last Admin Dose Admin Acetaminophen (Tylenol) 650 mg Q6H PRN ORAL Mild Pain/Temp > 100.5 02/07/18 06:45 03/09/18 06:44 Albuterol/ Ipratropium (Albuterol/ Ipratropium) 3 ml Q4H HHN 02/07/18 06:45 02/12/18 06:44 02/09/18 06:48 Atorvastatin Calcium (Lipitor) 10 mg BEDTIME ORAL 02/07/18 21:00 03/09/18 20:59 Calcium Carbonate (Tums) 500 mg THREE TIMES A DAY ORAL 02/07/18 09:00 03/09/18 08:59 Dextrose/ Electrolytes 1,000 ml @ 60 mls/hr [id number] IV 02/07/18 08:00 03/09/18 07:59 02/09/18 09:30 Docusate Sodium (Colace) 100 mg TWICE A DAY ORAL 02/07/18 09:00 03/09/18 08:59 Heparin Sodium (Porcine) (Heparin 5000 units/ml) 5,000 units EVERY 8 HOURS SUBQ 02/07/18 14:00 03/09/18 13:59 02/09/18 05:56 Levetiracetam 100 ml @ 400 mls/hr Q12HR IVPB 02/07/18 09:00 03/09/18 08:59 02/09/18 09:17 Levothyroxine Sodium (Synthroid) 125 mcg DAILY IV 02/07/18 09:00 03/09/18 08:59 02/09/18 09:20 Magnesium Hydroxide (Mom) 30 ml HSPRN PRN ORAL Constipation 02/07/18 06:45 03/09/18 06:44 Metoprolol Tartrate (Lopressor) 5 mg Q4H PRN IVP hr>130 02/07/18 07:14 03/09/18 07:13 Metoprolol Tartrate (Lopressor) 12.5 mg Q12HR ORAL 02/07/18 09:00 03/09/18 08:59 Olanzapine (ZyPREXA) 5 mg DAILY ORAL 02/07/18 09:00 03/09/18 08:59 Pantoprazole (Protonix) 40 mg DAILY IVP 02/07/18 09:21 03/09/18 09:20 02/09/18 09:19 Piperacillin Sod/ Tazobactam Sod 3.375 gm/Dextrose 110 ml @ 27.5 mls/hr EVERY 8 HOURS IVPB 02/07/18 14:00 02/12/18 13:59 02/09/18 05:54 Vancomycin HCl (Vanco rx to dose) 1 ea DAILY PRN MISC PER PHARMACY 02/07/18 07:30 03/09/18 07:29 Vancomycin/Sodium Chloride 250 ml @ 166.667 mls/hr Q24H IVPB 02/07/18 09:00 02/12/18 08:59 02/09/18 09:18 NINA ALVARADO Feb 09, 2018 10:58
[2018-02-09 12:00] VITALS: BP 108/49
[2018-02-09 16:00] VITALS: BP 91/53
--- NOTE | 2018-02-09 17:20 | Diagnostic Imaging Report ---
Indication: Reason For Exam: CVA Technique: sagittal T1 fast spin echo, axial T1 FLAIR, axial T2 FLAIR, axial T2 FS PROPELLER, axial T2* GRE, axial diffusion weighted images. ADC and exponential ADC maps generated Comparison: Head CT 09/01/2017 Findings: Exam is limited, as there is motion artifact. Per technologist, patient was unable hold still. There is a tiny focus of diffusion restriction in the left cerebellar hemisphere deep white matter. No associated T2 abnormality. No other foci of restricted diffusion are demonstrated. No acute intracranial hemorrhage or edema. No mass effect or midline shift. There is marked enlargement of the ventricles which has increased from the prior exam and to a lesser extent the extra-axial CSF spaces, also increased since prior exam. There is some encephalomalacia in the high left parietal lobe, also demonstrated on prior CT.. No acute hemorrhage or edema. Visualized orbits are unremarkable. There is right greater than left maxillary sinus disease. Vascular flow voids are preserved. There is bilateral mastoid disease. 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
[2018-02-09] MEDS ORDERED: Heparin 2000 units/Ns 1000ml INJ PRN (19:45)
[2018-02-09] MEDS ORDERED: Lidocaine 1% Plain 30 ml INJ PRN (19:45)
[2018-02-09 20:00] VITALS: BP 94/61
[2018-02-09] MEDS: Dyna-Hex 2% Top Sol 2oz TOPIC SCH (20:18)
--- NOTE | 2018-02-09 21:42 | Pulmonology Progress Note ---
Assessment/Plan Assessment/Plan PULMONARY FOLLOW UP NOTE HISTORY OF PRESENT ILLNESS: The patient is a 67-year-old male with a history of mental retardation and chronic subdural hematoma, recently admitted at [facility] and discharged on the , two days ago, after presenting with respiratory failure. He was thought to have a URI versus tracheobronchitis/early pneumonia. He was initially treated with antibiotics, but given negative procalcitonin, no infiltrates and afebrile status, antibiotics were discontinued. He was doing well on the day of discharge. The biggest issue was felt to be mucociliary clearance. He was treated with [id number] and p.r.n. DuoNebs via MedNeb, chest physiotherapy, and ultimately discharged back to the facility. Dr. Silver spoke with the [facility] and it was determined that the patient should remain Full Code. The patient was discharged to [facility] but he came in with EMS overnight with difficulty breathing, cough, and congestion. He was initially on a non-rebreather, but was noted to be hypoxemic. Chest x-ray was concerning for possible right lower lobe infiltrate, though on final read and upon my assessment, likely just some atelectasis. Nonetheless, the patient was started on empiric broad-spectrum antimicrobial agents and started on BiPAP. His white count is 11.2. The last CBC at [facility] on 01/30/2018, his white count was 9.7. He also had a video swallow during this last admission, which he passed for purees. He had lactic acidosis upon presentation here and an elevated troponin of 0.065. His lactic acidosis has since resolved. His UA was unremarkable. PAST MEDICAL HISTORY: 1. Down syndrome with mental retardation. 2. Pneumonia and pleural effusion in the past. 3. Hypothyroidism. 4. Congestive heart failure. 5. Eczema. 6. Chronic subdural hematomas. ALLERGIES: Sulfa. MEDICATIONS: Prior to admission, medications reviewed. Current medications, reviewed. SOCIAL HISTORY: Lives in a residential for mentally challenged patients, was at SNF. Currently, no tobacco, alcohol, or drug use. FAMILY HISTORY: Noncontributory. REVIEW OF SYSTEMS: Unobtainable. PHYSICAL EXAMINATION: VITAL SIGNS: Temperature 97.3, pulse 62, and blood pressure 107/55. GENERAL: He is a developmentally delayed male, in no acute distress on BiPAP. HEENT: Normocephalic and atraumatic. Oropharynx is clear with moist mucous membranes. NECK: Supple without lymphadenopathy. CHEST: Scattered rhonchi. HEART: Regular rhythm. ABDOMEN: Soft, nontender, and nondistended. EXTREMITIES: No cyanosis, clubbing, or edema. ANCILLARY DATA: White count 11.2, hemoglobin 14.5, and platelet count 244,000. ABG 7.43/41/77/27/95. Sodium 142, potassium 4.7, chloride 106, bicarbonate 30, BUN 20, and creatinine 1.6. Lactic acid 2.7, followup 1.7, and calcium 8.4. LFTs within normal limits. Phosphorus 4.5 and magnesium 2.1. Troponin 0.065. Total protein 7.4, albumin 2.6, and globulin 4.8. Urinalysis negative. Chest x-ray, possible right perihilar infiltrate. ASSESSMENT: The patient is a 67-year-old male with a history of mental retardation and chronic subdural hematomas, recently admitted to [facility] with tracheobronchitis and poor mucociliary clearance, now presenting with dehydration, mild troponin elevation, acute kidney injury, and possible right infrahilar infiltrate. PROBLEM LIST: 1. Respiratory failure, on BiPAP. 2. Right perihilar infiltrate, healthcare-associated pneumonia. 3. Acute kidney injury, likely dehydration. 4. Mild troponin elevation, likely demand ischemia. 5. History of recurrent aspiration pneumonia in the past. 6. Chronic subdural hematoma. 7. Mental retardation. 8. Hypothyroidism. 9. Chronic right bundle-branch block. TREATMENT PLAN: 1. Change BiPAP to p.r.n./nightly. 2. Attempt to wean off BiPAP now. 3. Titrate FiO2 to keep saturations greater than 90%. 4. Continue broad-spectrum antibiotics per ID. 5. Follow up cultures. 6. Unkma-stx-hhpid and p.r.n. DuoNebs. 7. Frequent suctioning. 8. Chest physiotherapy. 9. Mucinex and p.r.n. Robitussin. 10. Once the patient is stable off BiPAP, would advance diet with strict aspiration precautions. 11. Check D-dimer and a repeat troponin. 12. Deep venous thrombosis prophylaxis heparin subcutaneous. 13. Dr. Silver [facility] and it was determined for the patient to remain Full Code. Subjective ROS Limited/Unobtainable: No Allergies: Coded Allergies: SULFA (SULFONAMIDE ANTIBIOTICS) (Verified Allergy, Unknown, 09/02/15) Objective Last 24 Hour Vital Signs Date Time Temp Pulse Resp B/P (MAP) Pulse Ox O2 Delivery O2 Flow Rate FiO2 02/09/18 20:17 75 96/69 02/09/18 16:00 77 02/09/18 16:00 97.8 75 20 91/53 (66) 92 97.8 02/09/18 16:00 12.0 50 02/09/18 16:00 Venturi Mask 02/09/18 14:50 Venturi Mask 02/09/18 14:50 Venturi Mask 02/09/18 12:47 65 20 99 Venturi Mask 12.0 50 02/09/18 12:40 68 18 95 Venturi Mask 12.0 50 02/09/18 12:00 99.0 74 20 108/49 (68) 95 99.0 02/09/18 12:00 12.0 50 02/09/18 12:00 77 02/09/18 12:00 Venturi Mask 02/09/18 09:00 85 93/66 02/09/18 08:00 Venturi Mask 02/09/18 08:00 88 02/09/18 08:00 12.0 50 02/09/18 08:00 98.5 85 22 93/66 (75) 97 98.5 02/09/18 06:54 66 20 100 Venturi Mask 12.0 50 02/09/18 06:49 98 Venturi Mask 12.0 50 02/09/18 06:49 Venturi Mask 12.0 50 02/09/18 06:48 64 19 97 Venturi Mask 12.0 50 02/09/18 05:15 76 18 99 Full Face 50 02/09/18 04:00 50 02/09/18 04:00 Venturi Mask 02/09/18 04:00 72 02/09/18 04:00 98.7 83 20 134/55 (81) 99 98.7 02/09/18 03:04 70 23 100 Bi-pap 50 02/09/18 02:51 63 18 99 Full Face 50 02/09/18 02:51 63 18 99 Bi-pap 50 02/09/18 00:56 73 18 98 Full Face 50 02/09/18 00:00 Venturi Mask 02/09/18 00:00 50 02/09/18 00:00 98.5 83 22 128/52 (77) 97 98.5 02/09/18 00:00 79 02/08/18 23:25 78 21 100 Bi-pap 50 02/08/18 23:10 75 19 100 Bi-pap 50 02/08/18 23:08 75 19 100 Full Face 50 Intake and Output 02/08/18 02/09/18 19:00 07:00 Intake Total 1030.000 ml 832.75 ml Output Total 1200 ml 1350 ml Balance -170.000 ml -517.25 ml IV Total 1030.000 ml 832.75 ml Output Urine Total 1200 ml 1350 ml Microbiology Date/Time Source Procedure Growth Status 02/07/18 01:10 Blood Blood Culture - Preliminary Staphylococcus Aureus Resulted 02/07/18 00:50 Blood Blood Culture - Preliminary Staphylococcus Aureus Resulted 02/08/18 13:00 Sputum Gram Stain - Final Resulted 02/08/18 13:00 Sputum Sputum Culture - Preliminary Resulted 02/07/18 02:19 Nasal Nares MRSA Culture - Final Staphylococcus Aureus - Mrsa Complete 02/07/18 02:19 Rectum - Final NO CARBAPENEM-RESISTANT ENTEROBACTERI... Complete 02/07/18 02:19 Rectum VRE Culture - Final Enterococcus Faecalis - Vre Complete Current Medications Medications (Trade) Dose Ordered Sig/Eddy Route PRN Reason Start Time Stop Time Status Last Admin Dose Admin Acetaminophen (Tylenol) 650 mg Q6H PRN ORAL Mild Pain/Temp > 100.5 02/07/18 06:45 03/09/18 06:44 Albuterol/ Ipratropium (Albuterol/ Ipratropium) 3 ml Q4H HHN 02/07/18 06:45 02/12/18 06:44 02/09/18 12:40 Aspirin (ASA) 300 mg DAILY RECTAL 02/09/18 20:00 03/11/18 19:59 02/09/18 21:26 Atorvastatin Calcium (Lipitor) 10 mg BEDTIME ORAL 02/07/18 21:00 03/09/18 20:59 Calcium Carbonate (Tums) 500 mg THREE TIMES A DAY ORAL 02/07/18 09:00 03/09/18 08:59 Chlorhexidine Gluconate (Tesha-Hex 2%) 1 applic DAILY@2000 TOPIC 02/09/18 20:00 03/11/18 19:59 02/09/18 20:18 Dextrose/ Electrolytes 1,000 ml @ 60 mls/hr [id number] IV 02/07/18 08:00 03/09/18 07:59 02/09/18 09:30 Docusate Sodium (Colace) 100 mg TWICE A DAY ORAL 02/07/18 09:00 03/09/18 08:59 Heparin Sodium (Porcine) (Heparin 5000 units/ml) 5,000 units EVERY 8 HOURS SUBQ 02/07/18 14:00 03/09/18 13:59 02/09/18 21:40 Heparin Sodium/ Sodium Chloride (Heparin 2000 units/Ns 1000ml premix) 2,000 unit ONCE PRN INJ picc line placement 02/09/18 19:45 02/10/18 19:44 Levetiracetam 100 ml @ 400 mls/hr Q12HR IVPB 02/07/18 09:00 03/09/18 08:59 02/09/18 20:18 Levothyroxine Sodium (Synthroid) 125 mcg DAILY IV 02/07/18 09:00 03/09/18 08:59 02/09/18 09:20 Lidocaine HCl (Xylocaine 1% 30ml) 30 ml ONCE PRN INJ picc line placement 02/09/18 19:45 02/10/18 19:44 Magnesium Hydroxide (Mom) 30 ml HSPRN PRN ORAL Constipation 02/07/18 06:45 03/09/18 06:44 Metoprolol Tartrate (Lopressor) 5 mg Q4H PRN IVP hr>130 02/07/18 07:14 03/09/18 07:13 Metoprolol Tartrate (Lopressor) 12.5 mg Q12HR ORAL 02/07/18 09:00 03/09/18 08:59 Olanzapine (ZyPREXA) 5 mg DAILY ORAL 02/07/18 09:00 03/09/18 08:59 Pantoprazole (Protonix) 40 mg DAILY IVP 02/07/18 09:21 03/09/18 09:20 02/09/18 09:19 Piperacillin Sod/ Tazobactam Sod 3.375 gm/Dextrose 110 ml @ 27.5 mls/hr EVERY 8 HOURS IVPB 02/07/18 14:00 02/12/18 13:59 02/09/18 21:27 Vancomycin HCl (Vanco rx to dose) 1 ea DAILY PRN MISC PER PHARMACY 02/07/18 07:30 03/09/18 07:29 Vancomycin/Sodium Chloride 250 ml @ 166.667 mls/hr Q24H IVPB 02/07/18 09:00 02/12/18 08:59 02/09/18 09:18 Figueroa Redd MD Feb 09, 2018 21:42
--- NOTE | 2018-02-09 23:39 | General Progress Note ---
Assessment/Plan Status: progressing Assessment/Plan ASSESSMENT: 1. Shortness of breath, possibly secondary to pneumonia, possible sepsis. 2. Acute respiratory failure requiring BiPAP. 3. Acute kidney injury. 4. Elevated troponin, possibly from demand ischemia. 5. Developmental delay. 6. Dysphagia. 7. Psoriasis. 8. Acute left cerebellar infarction PLAN: 1. Continue the patient on BiPAP support. 2. Monitor vitals and I and O's. 3. Keep NPO for now until fully awake and pending swallow evaluation. 4. The patient was started on IV vancomycin and Zosyn. 5. To continue breathing treatment with frequent suctioning p.r.n. 6. Continue [facility] medications. 7. Monitor troponin. 8. Heparin for DVT prophylaxis. 9. Protonix for GI prophylaxis. 10. Dr. Forrest, Pulmonary consult and Dr. Johnston, ID consult. 11. will start aspirin 300 mg rectally 12. Echo with bubble study, carotic us and venous duplex discussed with nurse 13 gi consult Subjective Date patient seen: Feb 09, 2018 ROS Limited/Unobtainable: Yes Allergies: Coded Allergies: SULFA (SULFONAMIDE ANTIBIOTICS) (Verified Allergy, Unknown, 09/02/15) Objective Last 24 Hour Vital Signs Date Time Temp Pulse Resp B/P (MAP) Pulse Ox O2 Delivery O2 Flow Rate FiO2 02/09/18 22:50 71 20 99 Venturi Mask 12.0 50 02/09/18 22:49 68 20 97 Venturi Mask 12.0 50 02/09/18 22:42 Venturi Mask 12.0 50 02/09/18 22:37 Venturi Mask 12.0 50 02/09/18 22:17 Venturi Mask 12.0 50 02/09/18 22:16 99 Venturi Mask 12.0 50 02/09/18 20:17 75 96/69 02/09/18 20:00 12.0 50 02/09/18 20:00 Venturi Mask 02/09/18 20:00 98.2 75 24 94/61 (72) 97 98.2 02/09/18 19:33 81 02/09/18 16:00 77 02/09/18 16:00 97.8 75 20 91/53 (66) 92 97.8 02/09/18 16:00 12.0 50 02/09/18 16:00 Venturi Mask 02/09/18 14:50 Venturi Mask 02/09/18 14:50 Venturi Mask 02/09/18 12:47 65 20 99 Venturi Mask 12.0 50 02/09/18 12:40 68 18 95 Venturi Mask 12.0 50 02/09/18 12:00 99.0 74 20 108/49 (68) 95 99.0 02/09/18 12:00 12.0 50 02/09/18 12:00 77 02/09/18 12:00 Venturi Mask 02/09/18 09:00 85 93/66 02/09/18 08:00 Venturi Mask 02/09/18 08:00 88 02/09/18 08:00 12.0 50 02/09/18 08:00 98.5 85 22 93/66 (75) 97 98.5 02/09/18 06:54 66 20 100 Venturi Mask 12.0 50 02/09/18 06:49 98 Venturi Mask 12.0 50 02/09/18 06:49 Venturi Mask 12.0 50 02/09/18 06:48 64 19 97 Venturi Mask 12.0 50 02/09/18 05:15 76 18 99 Full Face 50 02/09/18 04:00 50 02/09/18 04:00 Venturi Mask 02/09/18 04:00 72 02/09/18 04:00 98.7 83 20 134/55 (81) 99 98.7 02/09/18 03:04 70 23 100 Bi-pap 50 02/09/18 02:51 63 18 99 Full Face 50 02/09/18 02:51 63 18 99 Bi-pap 50 02/09/18 00:56 73 18 98 Full Face 50 02/09/18 00:00 Venturi Mask 02/09/18 00:00 50 02/09/18 00:00 98.5 83 22 128/52 (77) 97 98.5 02/09/18 00:00 79 Intake and Output 02/08/18 02/09/18 19:00 07:00 Intake Total 1030.000 ml 832.75 ml Output Total 1200 ml 1350 ml Balance -170.000 ml -517.25 ml IV Total 1030.000 ml 832.75 ml Output Urine Total 1200 ml 1350 ml Height (Feet): 5 Height (Inches): 2.00 Weight (Pounds): 114 General Appearance: no apparent distress, alert EENT: PERRL/EOMI, pharynx normal Neck: non-tender, supple Cardiovascular: normal rate, regular rhythm, no gallop/murmur, no JVD Respiratory/Chest: chest wall non-tender, normal breath sounds, no respiratory distress Abdomen: non tender, soft, no mass Extremities: non-tender, normal inspection, no calf tenderness Edema: no edema noted Arm (L), no edema noted Arm (R), no edema noted Leg (L), no edema noted Leg (R), no edema noted Pedal (L), no edema noted Pedal (R), no edema noted Generalized Neurologic: responsive Skin: rash Lymphatic: normal anterior cervical (L), normal anterior cervical (R), normal posterior cervical (L), normal posterior cervical (R), normal submandibular (L) , normal submandibular (R), normal supraclavicular (L), normal supraclavicular ( R), normal axillary (L), normal axillary (R), normal inguinal (L), normal inguinal (R), normal other Diann Silver MD Feb 09, 2018 23:39
[2018-02-10] VITALS: BP 92/60
[2018-02-10] MEDS: Albuterol/Ipratropium 3ml neb HHN SCH ×6 (02:56→22:31)
[2018-02-10] MEDS: D5 1/2NS w/KCl 20mEq 1,000 ML IV SCH ×2 (03:05→18:30)
[2018-02-10 04:00] VITALS: BP 137/75
[2018-02-10] MEDS: Piperacillin/Tazobactam 3.375 GM in D5W 110 ML IVPB SCH ×3 (05:42→21:32)
[2018-02-10] MEDS: Heparin 5000 units/ml inj SUBQ SCH ×3 (05:47→21:33)
[2018-02-10 08:00] VITALS: BP 98/57
[2018-02-10] MEDS: Docusate 100mg cap ORAL SCH ×3 (09:00→17:45)
[2018-02-10] MEDS: Pantoprazole Inj IVP SCH (09:00)
[2018-02-10] MEDS: Tums 500mg ORAL SCH ×4 (09:00→17:45)
[2018-02-10] MEDS: Metoprolol Tartrate 12.5mg TAB ORAL SCH (09:00)
[2018-02-10] MEDS: levETIRAcetam 1,000mg/NS100ml 100 ML IVPB SCH ×2 (09:43→20:04)
[2018-02-10] MEDS: Vancomycin 750mg/NS 250ml IVPB SCH (09:43)
[2018-02-10 12:00] VITALS: BP 137/82
[2018-02-10] MEDS ORDERED: NS 275ml ONE (15:02)
[2018-02-10] MEDS ORDERED: NS 500ML ONE (15:02)
--- NOTE | 2018-02-10 15:45 | Pulmonology Progress Note ---
Assessment/Plan Assessment/Plan PULMONARY FOLLOW UP NOTE HISTORY OF PRESENT ILLNESS: The patient is a 67-year-old male with a history of mental retardation and chronic subdural hematoma, recently admitted at [facility] and discharged on the , two days ago, after presenting with respiratory failure. He was thought to have a URI versus tracheobronchitis/early pneumonia. He was initially treated with antibiotics, but given negative procalcitonin, no infiltrates and afebrile status, antibiotics were discontinued. He was doing well on the day of discharge. The biggest issue was felt to be mucociliary clearance. He was treated with fvnev-hce-[id number] and p.r.n. DuoNebs via MedNeb, chest physiotherapy, and ultimately discharged back to the facility. Dr. Silver spoke with the [facility] and it was determined that the patient should remain Full Code. The patient was discharged to [facility] but he came in with EMS overnight with difficulty breathing, cough, and congestion. He was initially on a non-rebreather, but was noted to be hypoxemic. Chest x-ray was concerning for possible right lower lobe infiltrate, though on final read and upon my assessment, likely just some atelectasis. Nonetheless, the patient was started on empiric broad-spectrum antimicrobial agents and started on BiPAP. His white count is 11.2. The last CBC at [facility] on 01/30/2018, his white count was 9.7. He also had a video swallow during this last admission, which he passed for purees. He had lactic acidosis upon presentation here and an elevated troponin of 0.065. His lactic acidosis has since resolved. His UA was unremarkable. PAST MEDICAL HISTORY: 1. Down syndrome with mental retardation. 2. Pneumonia and pleural effusion in the past. 3. Hypothyroidism. 4. Congestive heart failure. 5. Eczema. 6. Chronic subdural hematomas. ALLERGIES: Sulfa. MEDICATIONS: Prior to admission, medications reviewed. Current medications, reviewed. SOCIAL HISTORY: Lives in a [facility], was at SNF. Currently, no tobacco, alcohol, or drug use. FAMILY HISTORY: Noncontributory. REVIEW OF SYSTEMS: Unobtainable. PHYSICAL EXAMINATION: VITAL SIGNS: Temperature 97.3, pulse 62, and blood pressure 107/55. GENERAL: He is a developmentally delayed male, in no acute distress on BiPAP. HEENT: Normocephalic and atraumatic. Oropharynx is clear with moist mucous membranes. NECK: Supple without lymphadenopathy. CHEST: Scattered rhonchi. HEART: Regular rhythm. ABDOMEN: Soft, nontender, and nondistended. EXTREMITIES: No cyanosis, clubbing, or edema. ANCILLARY DATA: White count 11.2, hemoglobin 14.5, and platelet count 244,000. ABG 7.43/41/77/27/95. Sodium 142, potassium 4.7, chloride 106, bicarbonate 30, BUN 20, and creatinine 1.6. Lactic acid 2.7, followup 1.7, and calcium 8.4. LFTs within normal limits. Phosphorus 4.5 and magnesium 2.1. Troponin 0.065. Total protein 7.4, albumin 2.6, and globulin 4.8. Urinalysis negative. Chest x-ray, possible right perihilar infiltrate. ASSESSMENT: The patient is a 67-year-old male with a history of mental retardation and chronic subdural hematomas, recently admitted to [facility] with tracheobronchitis and poor mucociliary clearance, now presenting with dehydration, mild troponin elevation, acute kidney injury, and possible right infrahilar infiltrate. PROBLEM LIST: 1. Respiratory failure, on BiPAP. 2. Right perihilar infiltrate, healthcare-associated pneumonia. 3. Acute kidney injury, likely dehydration. 4. Mild troponin elevation, likely demand ischemia. 5. History of recurrent aspiration pneumonia in the past. 6. Chronic subdural hematoma. 7. Mental retardation. 8. Hypothyroidism. 9. Chronic right bundle-branch block. TREATMENT PLAN: 1. Change BiPAP to p.r.n./nightly. 2. Attempt to wean off BiPAP now. 3. Titrate FiO2 to keep saturations greater than 90%. 4. Continue broad-spectrum antibiotics per ID. 5. Follow up cultures. 6. Kfike-ygd-lvesr and p.r.n. DuoNebs. 7. Frequent suctioning. 8. Chest physiotherapy. 9. Mucinex and p.r.n. Robitussin. 10. Once the patient is stable off BiPAP, would advance diet with strict aspiration precautions. 11. Check D-dimer and a repeat troponin. 12. Deep venous thrombosis prophylaxis heparin subcutaneous. 13. Dr. Silver previously [facility] and it was determined for the patient to remain Full Code. Subjective ROS Limited/Unobtainable: No Allergies: Coded Allergies: SULFA (SULFONAMIDE ANTIBIOTICS) (Verified Allergy, Unknown, 09/02/15) Objective Last 24 Hour Vital Signs Date Time Temp Pulse Resp B/P (MAP) Pulse Ox O2 Delivery O2 Flow Rate FiO2 02/10/18 15:18 58 20 98 Venturi Mask 12.0 50 02/10/18 12:00 66 02/10/18 12:00 12.0 50 02/10/18 12:00 Venturi Mask 02/10/18 12:00 97.9 59 20 137/82 (100) 100 97.9 02/10/18 10:58 63 20 96 Venturi Mask 12.0 50 02/10/18 10:49 70 20 96 Venturi Mask 12.0 50 02/10/18 08:00 71 02/10/18 08:00 Venturi Mask 02/10/18 08:00 50 02/10/18 08:00 98.1 70 18 98/57 (71) 100 98.1 02/10/18 07:52 71 18 100 Venturi Mask 12.0 50 02/10/18 07:41 60 18 99 Full Face 50 02/10/18 07:40 Bi-pap 50 02/10/18 07:40 60 16 100 Bi-pap 50 02/10/18 07:39 100 Bi-pap 50 02/10/18 05:39 77 18 99 Full Face 50 02/10/18 04:00 70 02/10/18 04:00 98.1 63 22 137/75 (95) 99 98.1 02/10/18 04:00 Venturi Mask 02/10/18 04:00 50 02/10/18 03:09 67 19 99 Full Face 50 02/10/18 03:03 60 20 99 Venturi Mask 12.0 50 02/10/18 02:57 89 20 98 Venturi Mask 12.0 50 02/10/18 00:00 12.0 50 02/10/18 00:00 72 02/10/18 00:00 Venturi Mask 02/10/18 00:00 97.7 70 24 92/60 (71) 100 97.7 02/09/18 22:50 71 20 99 Venturi Mask 12.0 50 02/09/18 22:49 68 20 97 Venturi Mask 12.0 50 02/09/18 22:42 Venturi Mask 12.0 50 02/09/18 22:37 Venturi Mask 12.0 50 02/09/18 22:17 Venturi Mask 12.0 50 02/09/18 22:16 99 Venturi Mask 12.0 50 02/09/18 20:17 75 96/69 02/09/18 20:00 12.0 50 02/09/18 20:00 Venturi Mask 02/09/18 20:00 98.2 75 24 94/61 (72) 97 98.2 02/09/18 19:33 81 02/09/18 16:00 77 02/09/18 16:00 97.8 75 20 91/53 (66) 92 97.8 02/09/18 16:00 12.0 50 02/09/18 16:00 Venturi Mask Intake and Output 02/09/18 02/10/18 19:00 07:00 Intake Total 1259.750 ml 1165.0 ml Output Total 700 ml 1500 ml Balance 559.750 ml -335.0 ml IV Total 1259.750 ml 1165.0 ml Output Urine Total 700 ml 1500 ml Microbiology Date/Time Source Procedure Growth Status 02/08/18 13:00 Sputum Gram Stain - Final Resulted 02/08/18 13:00 Sputum Culture - Preliminary Gram Negative Bacillus 1 Resulted Laboratory Tests 02/10/18 07:50: Vancomycin Level Trough 7.9 Current Medications Medications (Trade) Dose Ordered Sig/Eddy Route PRN Reason Start Time Stop Time Status Last Admin Dose Admin Acetaminophen (Tylenol) 650 mg Q6H PRN ORAL Mild Pain/Temp > 100.5 02/07/18 06:45 03/09/18 06:44 Albuterol/ Ipratropium (Albuterol/ Ipratropium) 3 ml Q4H HHN 02/07/18 06:45 02/12/18 06:44 02/10/18 15:17 Aspirin (ASA) 300 mg DAILY RECTAL 02/09/18 20:00 03/11/18 19:59 02/10/18 09:00 Atorvastatin Calcium (Lipitor) 10 mg BEDTIME ORAL 02/07/18 21:00 03/09/18 20:59 Calcium Carbonate (Tums) 500 mg THREE TIMES A DAY ORAL 02/07/18 09:00 03/09/18 08:59 Chlorhexidine Gluconate (Tesha-Hex 2%) 1 applic DAILY@2000 TOPIC 02/09/18 20:00 03/11/18 19:59 02/09/18 20:18 Dextrose/ Electrolytes 1,000 ml @ 60 mls/hr [id number] IV 02/07/18 08:00 03/09/18 07:59 02/10/18 03:05 Docusate Sodium (Colace) 100 mg TWICE A DAY ORAL 02/07/18 09:00 03/09/18 08:59 Heparin Sodium (Porcine) (Heparin 5000 units/ml) 5,000 units EVERY 8 HOURS SUBQ 02/07/18 14:00 03/09/18 13:59 02/10/18 15:04 Heparin Sodium/ Sodium Chloride (Heparin 2000 units/Ns 1000ml premix) 2,000 unit ONCE PRN INJ picc line placement 02/09/18 19:45 02/10/18 19:44 Levetiracetam 100 ml @ 400 mls/hr Q12HR IVPB 02/07/18 09:00 03/09/18 08:59 02/10/18 09:43 Levothyroxine Sodium (Synthroid) 125 mcg DAILY IV 02/07/18 09:00 03/09/18 08:59 02/10/18 09:41 Lidocaine HCl (Xylocaine 1% 30ml) 30 ml ONCE PRN INJ picc line placement 02/09/18 19:45 02/10/18 19:44 Magnesium Hydroxide (Mom) 30 ml HSPRN PRN ORAL Constipation 02/07/18 06:45 03/09/18 06:44 Metoprolol Tartrate (Lopressor) 5 mg Q4H PRN IVP hr>130 02/07/18 07:14 03/09/18 07:13 Metoprolol Tartrate (Lopressor) 12.5 mg Q12HR ORAL 02/07/18 09:00 03/09/18 08:59 Olanzapine (ZyPREXA) 5 mg DAILY ORAL 02/07/18 09:00 03/09/18 08:59 Pantoprazole (Protonix) 40 mg DAILY IVP 02/07/18 09:21 03/09/18 09:20 02/10/18 09:00 Piperacillin Sod/ Tazobactam Sod 3.375 gm/Dextrose 110 ml @ 27.5 mls/hr EVERY 8 HOURS IVPB 02/07/18 14:00 02/12/18 13:59 02/10/18 15:01 Vancomycin HCl (Vanco rx to dose) 1 ea DAILY PRN MISC PER PHARMACY 02/07/18 07:30 03/09/18 07:29 Vancomycin HCl 500 mg/Dextrose 110 ml @ 110 mls/hr Q12H IVPB 02/10/18 20:00 02/15/18 19:59 Figueroa Redd MD Feb 10, 2018 15:45
[2018-02-10 16:00] VITALS: BP 90/51
--- NOTE | 2018-02-10 17:58 | Diagnostic Imaging Report ---
EXAM: XR Abdomen, 2 Views CLINICAL HISTORY: NGT TECHNIQUE: Frontal view of the abdomen/pelvis with upright view of the abdomen. COMPARISON: No relevant prior studies available. FINDINGS: Limitations: Exam is degraded by x-ray under-penetration. Intraperitoneal space: No free air. Gastrointestinal tract: Unremarkable. Unremarkable bowel gas pattern. No abnormal distention of large or small bowel loops. No luminal air fluid levels. No evidence of pneumatosis intestinalis. Bones/joints: Left convex lumbar scoliotic curvature centered at L2. Associated multilevel degenerative changes throughout the spine. Tubes, lines and devices: NG tube tip in the expected region of the distal stomach. Central venous catheter is seen in the right pelvis. IMPRESSION: NG tube tip in the expected region of the distal stomach.
--- NOTE | 2018-02-10 18:05 | General Progress Note ---
Assessment/Plan Assessment/Plan Assessment - Mental retardation - pneumonitis - failed swallow - h/o CHF Recommendations - NG - Abx - Begin TF - re-assess swallow function next week Subjective Allergies: Coded Allergies: SULFA (SULFONAMIDE ANTIBIOTICS) (Verified Allergy, Unknown, 09/02/15) Objective Last 24 Hour Vital Signs Date Time Temp Pulse Resp B/P (MAP) Pulse Ox O2 Delivery O2 Flow Rate FiO2 02/10/18 16:00 Venturi Mask 02/10/18 16:00 12.0 50 02/10/18 15:30 61 20 98 Venturi Mask 12.0 50 02/10/18 15:18 58 20 98 Venturi Mask 12.0 50 02/10/18 12:00 66 02/10/18 12:00 12.0 50 02/10/18 12:00 Venturi Mask 02/10/18 12:00 97.9 59 20 137/82 (100) 100 97.9 02/10/18 10:58 63 20 96 Venturi Mask 12.0 50 02/10/18 10:49 70 20 96 Venturi Mask 12.0 50 02/10/18 08:00 71 02/10/18 08:00 Venturi Mask 02/10/18 08:00 50 02/10/18 08:00 98.1 70 18 98/57 (71) 100 98.1 02/10/18 07:52 71 18 100 Venturi Mask 12.0 50 02/10/18 07:41 60 18 99 Full Face 50 02/10/18 07:40 Bi-pap 50 02/10/18 07:40 60 16 100 Bi-pap 50 02/10/18 07:39 100 Bi-pap 50 02/10/18 05:39 77 18 99 Full Face 50 02/10/18 04:00 70 02/10/18 04:00 98.1 63 22 137/75 (95) 99 98.1 02/10/18 04:00 Venturi Mask 02/10/18 04:00 50 02/10/18 03:09 67 19 99 Full Face 50 02/10/18 03:03 60 20 99 Venturi Mask 12.0 50 02/10/18 02:57 89 20 98 Venturi Mask 12.0 50 02/10/18 00:00 12.0 50 02/10/18 00:00 72 02/10/18 00:00 Venturi Mask 02/10/18 00:00 97.7 70 24 92/60 (71) 100 97.7 02/09/18 22:50 71 20 99 Venturi Mask 12.0 50 02/09/18 22:49 68 20 97 Venturi Mask 12.0 50 02/09/18 22:42 Venturi Mask 12.0 50 02/09/18 22:37 Venturi Mask 12.0 50 02/09/18 22:17 Venturi Mask 12.0 50 02/09/18 22:16 99 Venturi Mask 12.0 50 02/09/18 20:17 75 96/69 02/09/18 20:00 12.0 50 02/09/18 20:00 Venturi Mask 02/09/18 20:00 98.2 75 24 94/61 (72) 97 98.2 02/09/18 19:33 81 Intake and Output 02/09/18 02/10/18 19:00 07:00 Intake Total 1259.750 ml 1165.0 ml Output Total 700 ml 1500 ml Balance 559.750 ml -335.0 ml IV Total 1259.750 ml 1165.0 ml Output Urine Total 700 ml 1500 ml Laboratory Tests 02/10/18 07:50: Vancomycin Level Trough 7.9 Height (Feet): 5 Height (Inches): 2.00 Weight (Pounds): 113 Michael Estevez MD Feb 10, 2018 18:05
[2018-02-10] MEDS ORDERED: Acetaminophen 650mg/20.3ml NG PRN (19:00)
[2018-02-10 20:00] VITALS: BP 90/51
[2018-02-10] MEDS: Metoprolol Tartrate 12.5mg TAB NG SCH (20:00)
[2018-02-10] MEDS: Dyna-Hex 2% Top Sol 2oz TOPIC SCH (20:04)
[2018-02-10] MEDS ORDERED: Milk of Magnesia 30ml Ud NG PRN (21:00)
[2018-02-10] MEDS: Vancomycin 500mg/D5W 110ml IVPB SCH ×2 (21:26)
--- NOTE | 2018-02-10 22:28 | Cardiology Progress Note ---
Subjective Subjective [id number] Objective Last 24 Hour Vital Signs Date Time Temp Pulse Resp B/P (MAP) Pulse Ox O2 Delivery O2 Flow Rate FiO2 02/10/18 20:00 97.9 54 20 90/51 (64) 99 97.9 02/10/18 20:00 68 90/60 02/10/18 20:00 66 02/10/18 19:06 57 20 99 Venturi Mask 12.0 50 02/10/18 19:04 Venturi Mask 12.0 50 02/10/18 18:59 59 20 99 Venturi Mask 12.0 50 02/10/18 18:59 100 Venturi Mask 12.0 50 02/10/18 16:00 57 02/10/18 16:00 97.9 54 20 90/51 (64) 99 97.9 02/10/18 16:00 Venturi Mask 02/10/18 16:00 12.0 50 02/10/18 15:30 61 20 98 Venturi Mask 12.0 50 02/10/18 15:18 58 20 98 Venturi Mask 12.0 50 02/10/18 12:00 66 02/10/18 12:00 12.0 50 02/10/18 12:00 Venturi Mask 02/10/18 12:00 97.9 59 20 137/82 (100) 100 97.9 02/10/18 10:58 63 20 96 Venturi Mask 12.0 50 02/10/18 10:49 70 20 96 Venturi Mask 12.0 50 02/10/18 08:00 71 02/10/18 08:00 Venturi Mask 02/10/18 08:00 50 02/10/18 08:00 98.1 70 18 98/57 (71) 100 98.1 02/10/18 07:52 71 18 100 Venturi Mask 12.0 50 02/10/18 07:41 60 18 99 Full Face 50 02/10/18 07:40 Bi-pap 50 02/10/18 07:40 60 16 100 Bi-pap 50 02/10/18 07:39 100 Bi-pap 50 02/10/18 05:39 77 18 99 Full Face 50 02/10/18 04:00 70 02/10/18 04:00 98.1 63 22 137/75 (95) 99 98.1 02/10/18 04:00 Venturi Mask 02/10/18 04:00 50 02/10/18 03:09 67 19 99 Full Face 50 02/10/18 03:03 60 20 99 Venturi Mask 12.0 50 02/10/18 02:57 89 20 98 Venturi Mask 12.0 50 02/10/18 00:00 12.0 50 02/10/18 00:00 72 02/10/18 00:00 Venturi Mask 02/10/18 00:00 97.7 70 24 92/60 (71) 100 97.7 02/09/18 22:50 71 20 99 Venturi Mask 12.0 50 02/09/18 22:49 68 20 97 Venturi Mask 12.0 50 02/09/18 22:42 Venturi Mask 12.0 50 02/09/18 22:37 Venturi Mask 12.0 50 Intake and Output 02/09/18 02/10/18 19:00 07:00 Intake Total 1259.750 ml 1165.0 ml Output Total 700 ml 1500 ml Balance 559.750 ml -335.0 ml IV Total 1259.750 ml 1165.0 ml Output Urine Total 700 ml 1500 ml Laboratory Tests Test 02/10/18 07:50 Vancomycin Level Trough 7.9 ug/mL (5.0-12.0) Microbiology Date/Time Source Procedure Growth Status 02/08/18 13:00 Sputum Gram Stain - Final Resulted 02/08/18 13:00 Sputum Culture - Preliminary Gram Negative Bacillus 1 Resulted Felecia Real MD Feb 10, 2018 22:28
--- NOTE | 2018-02-10 22:32 | General Progress Note ---
Assessment/Plan Status: progressing Assessment/Plan ASSESSMENT: 1. Shortness of breath, possibly secondary to pneumonia, possible sepsis. 2. Acute respiratory failure requiring BiPAP. 3. Acute kidney injury. 4. Elevated troponin, possibly from demand ischemia. 5. Developmental delay. 6. Dysphagia. 7. Psoriasis. 8. Acute left cerebellar infarction PLAN: 1. Continue the patient on BiPAP support. 2. Monitor vitals and I and O's. 3. Keep NPO for now until fully awake and pending swallow evaluation. 4. The patient was started on IV vancomycin and Zosyn. 5. To continue breathing treatment with frequent suctioning p.r.n. 6. Continue jail medications. 7. Monitor troponin. 8. Heparin for DVT prophylaxis. 9. Protonix for GI prophylaxis. 10. Dr. Forrest, Pulmonary consult and Dr. Johnston, ID consult. 11. will start aspirin 300 mg rectally 12. fu Echo and carotic us and venous duplex 13 gi consult 14. NGT for meds and tube feeding left message for Dr. Mckenna of [facility] and discussed with brother Subjective Date patient seen: Feb 10, 2018 ROS Limited/Unobtainable: Yes Allergies: Coded Allergies: SULFA (SULFONAMIDE ANTIBIOTICS) (Verified Allergy, Unknown, 09/02/15) Objective Last 24 Hour Vital Signs Date Time Temp Pulse Resp B/P (MAP) Pulse Ox O2 Delivery O2 Flow Rate FiO2 02/10/18 20:00 97.9 54 20 90/51 (64) 99 97.9 02/10/18 20:00 68 90/60 02/10/18 20:00 66 02/10/18 19:06 57 20 99 Venturi Mask 12.0 50 02/10/18 19:04 Venturi Mask 12.0 50 02/10/18 18:59 59 20 99 Venturi Mask 12.0 50 02/10/18 18:59 100 Venturi Mask 12.0 50 02/10/18 16:00 57 02/10/18 16:00 97.9 54 20 90/51 (64) 99 97.9 02/10/18 16:00 Venturi Mask 02/10/18 16:00 12.0 50 02/10/18 15:30 61 20 98 Venturi Mask 12.0 50 02/10/18 15:18 58 20 98 Venturi Mask 12.0 50 02/10/18 12:00 66 02/10/18 12:00 12.0 50 02/10/18 12:00 Venturi Mask 02/10/18 12:00 97.9 59 20 137/82 (100) 100 97.9 02/10/18 10:58 63 20 96 Venturi Mask 12.0 50 02/10/18 10:49 70 20 96 Venturi Mask 12.0 50 02/10/18 08:00 71 02/10/18 08:00 Venturi Mask 02/10/18 08:00 50 02/10/18 08:00 98.1 70 18 98/57 (71) 100 98.1 02/10/18 07:52 71 18 100 Venturi Mask 12.0 50 02/10/18 07:41 60 18 99 Full Face 50 02/10/18 07:40 Bi-pap 50 02/10/18 07:40 60 16 100 Bi-pap 50 02/10/18 07:39 100 Bi-pap 50 02/10/18 05:39 77 18 99 Full Face 50 02/10/18 04:00 70 02/10/18 04:00 98.1 63 22 137/75 (95) 99 98.1 02/10/18 04:00 Venturi Mask 02/10/18 04:00 50 02/10/18 03:09 67 19 99 Full Face 50 02/10/18 03:03 60 20 99 Venturi Mask 12.0 50 02/10/18 02:57 89 20 98 Venturi Mask 12.0 50 02/10/18 00:00 12.0 50 02/10/18 00:00 72 02/10/18 00:00 Venturi Mask 02/10/18 00:00 97.7 70 24 92/60 (71) 100 97.7 02/09/18 22:50 71 20 99 Venturi Mask 12.0 50 02/09/18 22:49 68 20 97 Venturi Mask 12.0 50 02/09/18 22:42 Venturi Mask 12.0 50 02/09/18 22:37 Venturi Mask 12.0 50 Intake and Output 02/09/18 02/10/18 19:00 07:00 Intake Total 1259.750 ml 1165.0 ml Output Total 700 ml 1500 ml Balance 559.750 ml -335.0 ml IV Total 1259.750 ml 1165.0 ml Output Urine Total 700 ml 1500 ml Laboratory Tests 02/10/18 07:50: Vancomycin Level Trough 7.9 Height (Feet): 5 Height (Inches): 2.00 Weight (Pounds): 113 General Appearance: alert EENT: PERRL/EOMI, pharynx normal Neck: non-tender, supple Cardiovascular: normal rate, regular rhythm, no gallop/murmur, no JVD Respiratory/Chest: chest wall non-tender, normal breath sounds, no respiratory distress Abdomen: non tender, soft, no mass Extremities: non-tender, normal inspection, no calf tenderness Edema: no edema noted Arm (L), no edema noted Arm (R), no edema noted Leg (L), no edema noted Leg (R), no edema noted Pedal (L), no edema noted Pedal (R), no edema noted Generalized Neurologic: alert Skin: rash Lymphatic: normal anterior cervical (L), normal anterior cervical (R), normal posterior cervical (L), normal posterior cervical (R), normal submandibular (L) , normal submandibular (R), normal supraclavicular (L), normal supraclavicular ( R), normal axillary (L), normal axillary (R), normal inguinal (L), normal inguinal (R), normal other Diann Silver MD Feb 10, 2018 22:32
--- NOTE | 2018-02-10 23:30 | Consultation ---
DATE OF CONSULTATION: 02/10/2018 CONSULTING PHYSICIAN: Felecia Real M.D IDENTIFYING DATA: This is a 67-year-old male. REASON FOR ADMISSION: Respiratory insufficiency. HISTORY OF PRESENT ILLNESS: Taken from reviewing the chart. The patient is mentally retarded and he is unable to give any history. I reviewed all the records. The patient initially was at [facility] with respiratory distress, but then he recovered and it was contributory to bronchitis. However, he is readmitted here with shortness of breath, wheezing, and suspected to have pneumonia. However, there is also elevated troponin and chest x-ray suggestive of heart failure. PAST MEDICAL HISTORY: Significant for Down syndrome, hypothyroidism, subdural hematoma, eczema, and history of pneumonia. MEDICATIONS: All medications prior to admission reviewed. Right now, he is on antibiotics and intravenous fluids. SOCIAL HISTORY: He now lives in SNF because of his full maintenance, full care problems. ALLERGIES: Not reported. PHYSICAL EXAMINATION: GENERAL: Reveals gentleman resting in bed. He is not verbal. VITAL SIGNS: His blood pressure is 110/60, his heart rate is 72, his temperature was normal, and oxygen saturation, he is on BiPAP. HEENT: There is some deformity. Neck veins difficult to assess. LUNGS: Scattered rhonchi. HEART: Regular with distant S1. ABDOMEN: Soft and distended. No masses palpable. No rebound. No guarding. EXTREMITIES: Lower extremities, he has rash on his lower extremities, which looks like fungal or eczematous rash. NEUROLOGIC: Neurologically, he moves all extremities. Reflex is preserved. However, his mental status is difficult to assess and difficult to compare with his baseline. LABORATORY DATA: His EKG shows sinus rhythm with PVCs and septal infarct and left anterior hemiblock. His lab significant for lactic acid was 2.7 and then went down to 1.7. Sodium 142, potassium 4.7, chloride 106, bicarbonate 30, BUN 20, and creatinine 1.6. Troponin 0.65. Chest x-ray suggestive for right lower lobe infiltrate. IMPRESSION AND RECOMMENDATION: The patient has respiratory issues. I am concerned about congestive heart failure. The echo was done; however, I have no access to it now, which will need to be reviewed. He might need more cardiac imaging done because it is difficult to see and determine whether this is not a heart failure, most likely it is a pneumonia and may be aspiration pneumonia, so we are going to monitor the patient very closely. He is NPO. He is getting IV fluids 65 mL/h and potentially we might consider giving Lasix if his respiratory status worsens. Thank you very much for your consultation. Felecia Real M.D. DR: YISSEL JOB#: [id number] CC:
[2018-02-11] VITALS: BP 116/64
[2018-02-11] MEDS: Albuterol/Ipratropium 3ml neb HHN SCH ×6 (03:05→23:14)
[2018-02-11 04:00] VITALS: BP 110/70
[2018-02-11] MEDS: Piperacillin/Tazobactam 3.375 GM in D5W 110 ML IVPB SCH ×3 (05:10→22:42)
[2018-02-11] MEDS: Heparin 5000 units/ml inj SUBQ SCH ×3 (05:14→21:31)
[2018-02-11 08:00] VITALS: BP 110/61
[2018-02-11] MEDS: Pantoprazole Inj IVP SCH (08:19)
[2018-02-11] MEDS: Docusate 100mg/10ml Liq NG SCH ×2 (08:19→17:38)
[2018-02-11] MEDS: Tums 500mg GT SCH ×3 (08:20→17:38)
[2018-02-11] MEDS: Metoprolol Tartrate 12.5mg TAB NG SCH ×2 (08:20→21:01)
[2018-02-11] MEDS: levETIRAcetam 1,000mg/NS100ml 100 ML IVPB SCH ×2 (08:20→22:08)
[2018-02-11] MEDS: Vancomycin 500mg/D5W 110ml IVPB SCH ×2 (08:20)
[2018-02-11 08:41] LABS: BASOPHILS % (AUTO) 1.4 % (0.0-2.0); EOSINOPHILS % (AUTO) 3.1 % (0.0-3.0); HEMATOCRIT 40.4 % (42.0-52.0); HEMOGLOBIN 13.1 G/DL (14.2-18.0); LYMPHOCYTES % (AUTO) 19.5 % (20.0-45.0); MEAN CORPUSCULAR VOLUME 97 FL (80-99); MONOCYTES % (AUTO) 9.4 % (1.0-10.0); NEUTROPHILS % (AUTO) 66.7 % (45.0-75.0); PLATELET COUNT 205 K/UL (150-450); RED BLOOD COUNT 4.15 M/UL (4.70-6.10); WHITE BLOOD COUNT 5.9 K/UL (4.8-10.8)
[2018-02-11 08:56] LABS: ALANINE AMINOTRANSFERASE 21 U/L (12-78); ALBUMIN 2.3 G/DL (3.4-5.0); ALBUMIN/GLOBULIN RATIO 0.5 (1.0-2.7); ALKALINE PHOSPHATASE 72 U/L (46-116); ANION GAP 6 mmol/L (5-15); ASPARTATE AMINO TRANSFERASE 12 U/L (15-37); BILIRUBIN,TOTAL 0.8 MG/DL (0.2-1.0); BLOOD UREA NITROGEN 3 mg/dL (7-18); CALCIUM 8.9 MG/DL (8.5-10.1); CARBON DIOXIDE 29 MMOL/L (21-32); CHLORIDE 103 MMOL/L (98-107); POTASSIUM 3.8 MMOL/L (3.5-5.1); SODIUM 138 MMOL/L (136-145)
--- NOTE | 2018-02-11 09:26 | Infectious Diseases Prog Note ---
Assessment/Plan Assessment/Plan A: 1. pneumonia 2. respiratory failure 3. Acute lacunar CVA 4. mental retardation 5. staph aureus sepsis r/o endocarditis P 1. continue vancomycin iv, Zosyn 2. will follow up Echocardiogram 3. Repeat blood cultures Subjective ROS Limited/Unobtainable: Yes Allergies: Coded Allergies: SULFA (SULFONAMIDE ANTIBIOTICS) (Verified Allergy, Unknown, 09/02/15) Objective Vital Signs Last 24 Hour Vital Signs Date Time Temp Pulse Resp B/P (MAP) Pulse Ox O2 Delivery O2 Flow Rate FiO2 02/11/18 08:20 89 95/61 02/11/18 06:55 74 20 99 Venturi Mask 10.0 45 02/11/18 06:46 96 Venturi Mask 10.0 45 02/11/18 06:46 Venturi Mask 10.0 45 02/11/18 06:46 77 16 96 Venturi Mask 10.0 45 02/11/18 05:27 71 19 100 Full Face 40 02/11/18 04:00 98.4 70 18 110/70 (83) 99 98.4 02/11/18 04:00 12.0 50 02/11/18 04:00 81 02/11/18 04:00 Venturi Mask 02/11/18 03:13 68 18 99 Bi-pap 45 02/11/18 03:06 73 18 98 Full Face 45 02/11/18 03:05 75 18 97 Bi-pap 45 02/11/18 01:02 62 18 100 Full Face 50 02/11/18 00:00 Venturi Mask 02/11/18 00:00 12.0 50 02/11/18 00:00 69 02/11/18 00:00 98.0 52 20 116/64 (81) 96 98.0 02/10/18 22:41 78 20 98 Bi-pap 50 02/10/18 22:31 64 18 99 Bi-pap 50 02/10/18 22:31 64 18 99 Full Face 50 02/10/18 20:00 97.9 54 20 90/51 (64) 99 97.9 02/10/18 20:00 Venturi Mask 02/10/18 20:00 68 90/60 02/10/18 20:00 66 02/10/18 20:00 12.0 50 02/10/18 19:06 57 20 99 Venturi Mask 12.0 50 02/10/18 19:04 Venturi Mask 12.0 50 02/10/18 18:59 59 20 99 Venturi Mask 12.0 50 02/10/18 18:59 100 Venturi Mask 12.0 50 02/10/18 16:00 57 02/10/18 16:00 97.9 54 20 90/51 (64) 99 97.9 02/10/18 16:00 Venturi Mask 02/10/18 16:00 12.0 50 02/10/18 15:30 61 20 98 Venturi Mask 12.0 50 02/10/18 15:18 58 20 98 Venturi Mask 12.0 50 02/10/18 12:00 66 02/10/18 12:00 12.0 50 02/10/18 12:00 Venturi Mask 02/10/18 12:00 97.9 59 20 137/82 (100) 100 97.9 02/10/18 10:58 63 20 96 Venturi Mask 12.0 50 02/10/18 10:49 70 20 96 Venturi Mask 12.0 50 Height (Feet): 5 Height (Inches): 2.00 Weight (Pounds): 113 HEENT: mucous membranes moist Respiratory/Chest: other - Oxygen by mask, few rhonchi Cardiovascular: normal rate Abdomen: soft, non tender, other - NG tube feeding Extremities: no edema 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: unresponsiveness Microbiology Date/Time Source Procedure Growth Status 02/08/18 13:00 Sputum Gram Stain - Final Resulted 02/08/18 13:00 Sputum Culture - Preliminary Escherichia Coli - Esbl Staphylococcus Aureus Usual Respiratory Cheryl Resulted Laboratory Tests Test 02/11/18 08:30 White Blood Count 5.9 K/UL (4.8-10.8) Red Blood Count 4.15 M/UL (4.70-6.10) L Hemoglobin 13.1 G/DL (14.2-18.0) L Hematocrit 40.4 % (42.0-52.0) L Mean Corpuscular Volume 97 FL (80-99) Mean Corpuscular Hemoglobin 31.6 PG (27.0-31.0) H Mean Corpuscular Hemoglobin Concent 32.5 G/DL (32.0-36.0) Red Cell Distribution Width 14.0 % (11.6-14.8) Platelet Count 205 K/UL (150-450) Mean Platelet Volume 7.4 FL (6.5-10.1) Neutrophils (%) (Auto) 66.7 % (45.0-75.0) Lymphocytes (%) (Auto) 19.5 % (20.0-45.0) L Monocytes (%) (Auto) 9.4 % (1.0-10.0) Eosinophils (%) (Auto) 3.1 % (0.0-3.0) H Basophils (%) (Auto) 1.4 % (0.0-2.0) Sodium Level 138 MMOL/L (136-145) Potassium Level 3.8 MMOL/L (3.5-5.1) Chloride Level 103 MMOL/L (98-107) Carbon Dioxide Level 29 MMOL/L (21-32) Anion Gap 6 mmol/L (5-15) Blood Urea Nitrogen 3 mg/dL (7-18) L Creatinine 1.0 MG/DL (0.55-1.30) Estimat Glomerular Filtration Rate > 60 mL/min (>60) Glucose Level 107 MG/DL (74-106) H Calcium Level 8.9 MG/DL (8.5-10.1) Total Bilirubin 0.8 MG/DL (0.2-1.0) Aspartate Amino Transf (AST/SGOT) 12 U/L (15-37) L Alanine Aminotransferase (ALT/SGPT) 21 U/L (12-78) Alkaline Phosphatase 72 U/L (46-116) Total Protein 7.3 G/DL (6.4-8.2) Albumin 2.3 G/DL (3.4-5.0) L Globulin 5.0 g/dL Albumin/Globulin Ratio 0.5 (1.0-2.7) L Current Medications Medications (Trade) Dose Ordered Sig/Eddy Route PRN Reason Start Time Stop Time Status Last Admin Dose Admin Acetaminophen (Tylenol) 650 mg Q6H PRN NG Mild Pain/Temp > 100.5 02/10/18 19:00 03/12/18 18:59 Albuterol/ Ipratropium (Albuterol/ Ipratropium) 3 ml Q4HRT HHN 02/11/18 07:00 02/12/18 06:44 02/11/18 06:46 Aspirin (ASA) 300 mg DAILY RECTAL 02/09/18 20:00 03/11/18 19:59 02/11/18 08:21 Atorvastatin Calcium (Lipitor) 10 mg BEDTIME NG 02/10/18 21:00 03/09/18 20:59 02/10/18 20:05 Calcium Carbonate (Tums) 500 mg THREE TIMES A DAY GT 02/11/18 09:00 03/09/18 08:59 02/11/18 08:20 Chlorhexidine Gluconate (Tesha-Hex 2%) 1 applic DAILY@2000 TOPIC 02/09/18 20:00 03/11/18 19:59 02/10/18 20:04 Dextrose/ Electrolytes 1,000 ml @ 60 mls/hr [id number] IV 02/07/18 08:00 03/09/18 07:59 02/10/18 18:30 Docusate Sodium (Colace) 100 mg TWICE A DAY NG 02/11/18 09:00 03/13/18 08:59 02/11/18 08:19 Heparin Sodium (Porcine) (Heparin 5000 units/ml) 5,000 units EVERY 8 HOURS SUBQ 02/07/18 14:00 03/09/18 13:59 02/11/18 05:14 Levetiracetam 100 ml @ 400 mls/hr Q12HR IVPB 02/07/18 09:00 03/09/18 08:59 02/11/18 08:20 Levothyroxine Sodium (Synthroid) 125 mcg DAILY IV 02/07/18 09:00 03/09/18 08:59 02/11/18 08:50 Magnesium Hydroxide (Mom) 30 ml HSPRN PRN NG Constipation 02/10/18 21:00 03/09/18 20:59 Metoprolol Tartrate (Lopressor) 5 mg Q4H PRN IVP hr>130 02/07/18 07:14 03/09/18 07:13 Metoprolol Tartrate (Lopressor) 12.5 mg Q12HR NG 02/10/18 21:00 03/09/18 08:59 Olanzapine (ZyPREXA) 5 mg DAILY@2100 NG 02/10/18 21:00 03/12/18 20:59 02/10/18 20:05 Pantoprazole (Protonix) 40 mg DAILY IVP 02/07/18 09:21 03/09/18 09:20 02/11/18 08:19 Piperacillin Sod/ Tazobactam Sod 3.375 gm/Dextrose 110 ml @ 27.5 mls/hr EVERY 8 HOURS IVPB 02/07/18 14:00 02/12/18 13:59 02/11/18 05:10 Vancomycin HCl (Vanco rx to dose) 1 ea DAILY PRN MISC PER PHARMACY 02/07/18 07:30 03/09/18 07:29 Vancomycin HCl 500 mg/Dextrose 110 ml @ 110 mls/hr Q12H IVPB 02/10/18 20:00 02/15/18 19:59 02/11/18 08:20 Wilbur Escudero MD Feb 11, 2018 09:26
[2018-02-11 12:00] VITALS: BP 99/49
[2018-02-11] MEDS: D5 1/2NS w/KCl 20mEq 1,000 ML IV SCH ×2 (12:33→18:15)
--- NOTE | 2018-02-11 13:45 | Consultation ---
DATE OF CONSULTATION: 02/10/2018 GASTROENTEROLOGY CONSULTATION CONSULTING PHYSICIAN: Michael Estevez M.D. CHIEF COMPLAINT: I was asked to see this patient by Dr. Diann Silver for evaluation of dysphagia and feeding. HISTORY OF PRESENT ILLNESS: The patient is an unfortunate 67-year-old white man with a longstanding history of altered mental retardation who has had a declining course over the past few months. He was recently in the alf and was brought to the hospital for pneumonitis and was discharged just a day ago, but then was readmitted to [facility] on 02/07/2018. Here in the hospital, he has had some labored breathing and respiratory issues and has been treated appropriately. He failed a swallow study; however, therefore this consultation was generated. The patient himself is not able to provide any meaningful history, and therefore most of the history is only available from the chart. PAST MEDICAL HISTORY: History of mental retardation, hypertension, dysphagia, congestive heart failure, and pneumonitis. ALLERGIES: Sulfa. FAMILY HISTORY: Not available. SOCIAL HISTORY: The patient resides in a alf. REVIEW OF SYSTEMS: Unobtainable. PHYSICAL EXAMINATION: GENERAL: A debilitated white man, seen in his room. HEENT: Normocephalic and atraumatic. Dentition is poor. NECK: Supple. CHEST: Reveals scattered rhonchi. CARDIOVASCULAR: Revealed a regular rate. ABDOMEN: Soft. EXTREMITIES: Revealed no edema. LABORATORY DATA: Laboratory data were noted. ASSESSMENT: This patient has respiratory infection and is receiving antibiotics and treatments. There does not seem to be significant neurological or otherwise permanent process supportive care, he may improve in regaining swallow function. For the time being, therefore, I would place a temporary nasogastric feeding tube until he shows some signs of improvement. At that time, a repeat swallow study to be done. The details can be discussed re gastrostomy tube as necessary. RECOMMENDATIONS: Per above discussion and per orders written in the chart. Thank you for asking me to participate in the care of this patient. Michael Estevez M.D. DR: JAUN JOB#: [id number] CC: APOLLO
--- NOTE | 2018-02-11 14:08 | General Progress Note ---
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 - pneumonitis - failed swallow - h/o CHF Recommendations - NGT - Abx - Begin TF - re-assess swallow function next week Subjective Allergies: Coded Allergies: SULFA (SULFONAMIDE ANTIBIOTICS) (Verified Allergy, Unknown, 09/02/15) Subjective Above noted NGT placed yesterday on Abx for PNA Objective Last 24 Hour Vital Signs Date Time Temp Pulse Resp B/P (MAP) Pulse Ox O2 Delivery O2 Flow Rate FiO2 02/11/18 12:00 Venturi Mask 02/11/18 12:00 98.2 73 16 99/49 (66) 93 98.2 02/11/18 12:00 82 02/11/18 12:00 12.0 50 02/11/18 10:40 68 21 99 Venturi Mask 10.0 45 02/11/18 10:30 67 16 98 Venturi Mask 10.0 45 02/11/18 09:00 12.0 50 02/11/18 08:20 89 95/61 02/11/18 08:00 84 02/11/18 08:00 99.1 70 22 110/61 (77) 96 99.1 02/11/18 08:00 Venturi Mask 02/11/18 06:55 74 20 99 Venturi Mask 10.0 45 02/11/18 06:46 96 Venturi Mask 10.0 45 02/11/18 06:46 Venturi Mask 10.0 45 02/11/18 06:46 77 16 96 Venturi Mask 10.0 45 02/11/18 05:27 71 19 100 Full Face 40 02/11/18 04:00 98.4 70 18 110/70 (83) 99 98.4 02/11/18 04:00 12.0 50 02/11/18 04:00 81 02/11/18 04:00 Venturi Mask 02/11/18 03:13 68 18 99 Bi-pap 45 02/11/18 03:06 73 18 98 Full Face 45 02/11/18 03:05 75 18 97 Bi-pap 45 02/11/18 01:02 62 18 100 Full Face 50 02/11/18 00:00 Venturi Mask 02/11/18 00:00 12.0 50 02/11/18 00:00 69 02/11/18 00:00 98.0 52 20 116/64 (81) 96 98.0 02/10/18 22:41 78 20 98 Bi-pap 50 02/10/18 22:31 64 18 99 Bi-pap 50 02/10/18 22:31 64 18 99 Full Face 50 02/10/18 20:00 97.9 54 20 90/51 (64) 99 97.9 02/10/18 20:00 Venturi Mask 02/10/18 20:00 68 90/60 02/10/18 20:00 66 02/10/18 20:00 12.0 50 02/10/18 19:06 57 20 99 Venturi Mask 12.0 50 02/10/18 19:04 Venturi Mask 12.0 50 02/10/18 18:59 59 20 99 Venturi Mask 12.0 50 02/10/18 18:59 100 Venturi Mask 12.0 50 02/10/18 16:00 57 02/10/18 16:00 97.9 54 20 90/51 (64) 99 97.9 02/10/18 16:00 Venturi Mask 02/10/18 16:00 12.0 50 02/10/18 15:30 61 20 98 Venturi Mask 12.0 50 02/10/18 15:18 58 20 98 Venturi Mask 12.0 50 Intake and Output 02/10/18 02/11/18 19:00 07:00 Intake Total 30 ml 1312.5 ml Output Total 1000 ml 550 ml Balance -970 ml 762.5 ml IV Total 30 ml 1312.5 ml Output Urine Total 1000 ml 550 ml Laboratory Tests 02/11/18 08:30: White Blood Count 5.9, Red Blood Count 4.15L, Hemoglobin 13.1L, Hematocrit 40.4L , Mean Corpuscular Volume 97, Mean Corpuscular Hemoglobin 31.6H, Mean Corpuscular Hemoglobin Concent 32.5, Red Cell Distribution Width 14.0, Platelet Count 205, Mean Platelet Volume 7.4, Neutrophils (%) (Auto) 66.7, Lymphocytes (% ) (Auto) 19.5L, Monocytes (%) (Auto) 9.4, Eosinophils (%) (Auto) 3.1H, Basophils (%) (Auto) 1.4, Sodium Level 138, Potassium Level 3.8, Chloride Level 103, Carbon Dioxide Level 29, Anion Gap 6, Blood Urea Nitrogen 3L, Creatinine 1.0, Estimat Glomerular Filtration Rate > 60, Glucose Level 107H, Calcium Level 8.9, Total Bilirubin 0.8, Aspartate Amino Transf (AST/SGOT) 12L, Alanine Aminotransferase (ALT/SGPT) 21, Alkaline Phosphatase 72, Total Protein 7.3, Albumin 2.3L, Globulin 5.0, Albumin/Globulin Ratio 0.5L Height (Feet): 5 Height (Inches): 2.00 Weight (Pounds): 113 Objective WDWN WM NCAT supple Chest b/l Luis RR abd soft ND no edema OBS Michael Estevez MD Feb 11, 2018 14:08
--- NOTE | 2018-02-11 14:37 | Pulmonology Progress Note ---
Assessment/Plan Assessment/Plan PULMONARY FOLLOW UP NOTE HISTORY OF PRESENT ILLNESS: The patient is a 67-year-old male with a history of mental retardation and chronic subdural hematoma, recently admitted at [facility] and discharged on the , two days ago, after presenting with respiratory failure. He was thought to have a URI versus tracheobronchitis/early pneumonia. He was initially treated with antibiotics, but given negative procalcitonin, no infiltrates and afebrile status, antibiotics were discontinued. He was doing well on the day of discharge. The biggest issue was felt to be mucociliary clearance. He was treated with [id number] and p.r.n. DuoNebs via [facility], chest physiotherapy, and ultimately discharged back to the facility. Dr. Silver spoke with the [facility] and it was determined that the patient should remain Full Code. The patient was discharged to [facility] but he came in with EMS overnight with difficulty breathing, cough, and congestion. He was initially on a non-rebreather, but was noted to be hypoxemic. Chest x-ray was concerning for possible right lower lobe infiltrate, though on final read and upon my assessment, likely just some atelectasis. Nonetheless, the patient was started on empiric broad-spectrum antimicrobial agents and started on BiPAP. His white count is 11.2. The last CBC at [facility] on 01/30/2018, his white count was 9.7. He also had a video swallow during this last admission, which he passed for purees. He had lactic acidosis upon presentation here and an elevated troponin of 0.065. His lactic acidosis has since resolved. His UA was unremarkable. PAST MEDICAL HISTORY: 1. Down syndrome with mental retardation. 2. Pneumonia and pleural effusion in the past. 3. Hypothyroidism. 4. Congestive heart failure. 5. Eczema. 6. Chronic subdural hematomas. ALLERGIES: Sulfa. MEDICATIONS: Prior to admission, medications reviewed. Current medications, reviewed. SOCIAL HISTORY: [facility] in a [facility], was at SNF. Currently, no tobacco, alcohol, or drug use. FAMILY HISTORY: Noncontributory. REVIEW OF SYSTEMS: Unobtainable. PHYSICAL EXAMINATION: VITAL SIGNS: Temperature 97.3, pulse 62, and blood pressure 107/55. GENERAL: He is a developmentally delayed male, in no acute distress on BiPAP. HEENT: Normocephalic and atraumatic. Oropharynx is clear with moist mucous membranes. NECK: Supple without lymphadenopathy. CHEST: Scattered rhonchi. HEART: Regular rhythm. ABDOMEN: Soft, nontender, and nondistended. EXTREMITIES: No cyanosis, clubbing, or edema. ANCILLARY DATA: White count 11.2, hemoglobin 14.5, and platelet count 244,000. ABG 7.43/41/77/27/95. Sodium 142, potassium 4.7, chloride 106, bicarbonate 30, BUN 20, and creatinine 1.6. Lactic acid 2.7, followup 1.7, and calcium 8.4. LFTs within normal limits. Phosphorus 4.5 and magnesium 2.1. Troponin 0.065. Total protein 7.4, albumin 2.6, and globulin 4.8. Urinalysis negative. Chest x-ray, possible right perihilar infiltrate. ASSESSMENT: The patient is a 67-year-old male with a history of mental retardation and chronic subdural hematomas, recently admitted to [facility] with tracheobronchitis and poor mucociliary clearance, now presenting with dehydration, mild troponin elevation, acute kidney injury, and possible right infrahilar infiltrate. PROBLEM LIST: 1. Respiratory failure, on BiPAP. 2. Right perihilar infiltrate, healthcare-associated pneumonia. 3. Acute kidney injury, likely dehydration. 4. Mild troponin elevation, likely demand ischemia. 5. History of recurrent aspiration pneumonia in the past. 6. Chronic subdural hematoma. 7. Mental retardation. 8. Hypothyroidism. 9. Chronic right bundle-branch block. TREATMENT PLAN: 1. Change BiPAP to p.r.n./nightly. 2. Attempt to wean off BiPAP now. 3. Titrate FiO2 to keep saturations greater than 90%. 4. Continue broad-spectrum antibiotics per ID. 5. Follow up cultures. 6. Glbhp-duo-xzoyb and p.r.n. DuoNebs. 7. Frequent suctioning. 8. Chest physiotherapy. 9. Mucinex and p.r.n. Robitussin. 10. Once the patient is stable off BiPAP, would advance diet with strict aspiration precautions. 11. Check D-dimer and a repeat troponin. 12. Deep venous thrombosis prophylaxis heparin subcutaneous. 13. Dr. Silver previously [facility] and it was determined for the patient to remain Full Code. Subjective ROS Limited/Unobtainable: Yes Allergies: Coded Allergies: SULFA (SULFONAMIDE ANTIBIOTICS) (Verified Allergy, Unknown, 09/02/15) Objective Last 24 Hour Vital Signs Date Time Temp Pulse Resp B/P (MAP) Pulse Ox O2 Delivery O2 Flow Rate FiO2 02/11/18 12:00 Venturi Mask 02/11/18 12:00 98.2 73 16 99/49 (66) 93 98.2 02/11/18 12:00 82 02/11/18 12:00 12.0 50 02/11/18 10:40 68 21 99 Venturi Mask 10.0 45 02/11/18 10:30 67 16 98 Venturi Mask 10.0 45 02/11/18 09:00 12.0 50 02/11/18 08:20 89 95/61 02/11/18 08:00 84 02/11/18 08:00 99.1 70 22 110/61 (77) 96 99.1 02/11/18 08:00 Venturi Mask 02/11/18 06:55 74 20 99 Venturi Mask 10.0 45 02/11/18 06:46 96 Venturi Mask 10.0 45 02/11/18 06:46 Venturi Mask 10.0 45 02/11/18 06:46 77 16 96 Venturi Mask 10.0 45 02/11/18 05:27 71 19 100 Full Face 40 02/11/18 04:00 98.4 70 18 110/70 (83) 99 98.4 02/11/18 04:00 12.0 50 02/11/18 04:00 81 02/11/18 04:00 Venturi Mask 02/11/18 03:13 68 18 99 Bi-pap 45 02/11/18 03:06 73 18 98 Full Face 45 02/11/18 03:05 75 18 97 Bi-pap 45 02/11/18 01:02 62 18 100 Full Face 50 02/11/18 00:00 Venturi Mask 02/11/18 00:00 12.0 50 02/11/18 00:00 69 02/11/18 00:00 98.0 52 20 116/64 (81) 96 98.0 02/10/18 22:41 78 20 98 Bi-pap 50 02/10/18 22:31 64 18 99 Bi-pap 50 02/10/18 22:31 64 18 99 Full Face 50 02/10/18 20:00 97.9 54 20 90/51 (64) 99 97.9 02/10/18 20:00 Venturi Mask 02/10/18 20:00 68 90/60 02/10/18 20:00 66 02/10/18 20:00 12.0 50 02/10/18 19:06 57 20 99 Venturi Mask 12.0 50 02/10/18 19:04 Venturi Mask 12.0 50 02/10/18 18:59 59 20 99 Venturi Mask 12.0 50 02/10/18 18:59 100 Venturi Mask 12.0 50 02/10/18 16:00 57 02/10/18 16:00 97.9 54 20 90/51 (64) 99 97.9 02/10/18 16:00 Venturi Mask 02/10/18 16:00 12.0 50 02/10/18 15:30 61 20 98 Venturi Mask 12.0 50 02/10/18 15:18 58 20 98 Venturi Mask 12.0 50 Intake and Output 02/10/18 02/11/18 19:00 07:00 Intake Total 30 ml 1312.5 ml Output Total 1000 ml 550 ml Balance -970 ml 762.5 ml IV Total 30 ml 1312.5 ml Output Urine Total 1000 ml 550 ml Laboratory Tests 02/11/18 08:30: White Blood Count 5.9, Red Blood Count 4.15L, Hemoglobin 13.1L, Hematocrit 40.4L , Mean Corpuscular Volume 97, Mean Corpuscular Hemoglobin 31.6H, Mean Corpuscular Hemoglobin Concent 32.5, Red Cell Distribution Width 14.0, Platelet Count 205, Mean Platelet Volume 7.4, Neutrophils (%) (Auto) 66.7, Lymphocytes (% ) (Auto) 19.5L, Monocytes (%) (Auto) 9.4, Eosinophils (%) (Auto) 3.1H, Basophils (%) (Auto) 1.4, Sodium Level 138, Potassium Level 3.8, Chloride Level 103, Carbon Dioxide Level 29, Anion Gap 6, Blood Urea Nitrogen 3L, Creatinine 1.0, Estimat Glomerular Filtration Rate > 60, Glucose Level 107H, Calcium Level 8.9, Total Bilirubin 0.8, Aspartate Amino Transf (AST/SGOT) 12L, Alanine Aminotransferase (ALT/SGPT) 21, Alkaline Phosphatase 72, Total Protein 7.3, Albumin 2.3L, Globulin 5.0, Albumin/Globulin Ratio 0.5L Current Medications Medications (Trade) Dose Ordered Sig/Eddy Route PRN Reason Start Time Stop Time Status Last Admin Dose Admin Acetaminophen (Tylenol) 650 mg Q6H PRN NG Mild Pain/Temp > 100.5 02/10/18 19:00 03/12/18 18:59 Albuterol/ Ipratropium (Albuterol/ Ipratropium) 3 ml Q4HRT HHN 02/11/18 07:00 02/12/18 06:44 02/11/18 10:30 Aspirin (ASA) 300 mg DAILY RECTAL 02/09/18 20:00 03/11/18 19:59 02/11/18 08:21 Atorvastatin Calcium (Lipitor) 10 mg BEDTIME NG 02/10/18 21:00 03/09/18 20:59 02/10/18 20:05 Calcium Carbonate (Tums) 500 mg THREE TIMES A DAY GT 02/11/18 09:00 03/09/18 08:59 02/11/18 12:32 Chlorhexidine Gluconate (Tesha-Hex 2%) 1 applic DAILY@2000 TOPIC 02/09/18 20:00 03/11/18 19:59 02/10/18 20:04 Dextrose/ Electrolytes 1,000 ml @ 60 mls/hr [id number] IV 02/07/18 08:00 03/09/18 07:59 02/11/18 12:33 Docusate Sodium (Colace) 100 mg TWICE A DAY NG 02/11/18 09:00 03/13/18 08:59 02/11/18 08:19 Heparin Sodium (Porcine) (Heparin 5000 units/ml) 5,000 units EVERY 8 HOURS SUBQ 02/07/18 14:00 03/09/18 13:59 02/11/18 14:20 Levetiracetam 100 ml @ 400 mls/hr Q12HR IVPB 02/07/18 09:00 03/09/18 08:59 02/11/18 08:20 Levothyroxine Sodium (Synthroid) 125 mcg DAILY IV 02/07/18 09:00 03/09/18 08:59 02/11/18 08:50 Magnesium Hydroxide (Mom) 30 ml HSPRN PRN NG Constipation 02/10/18 21:00 03/09/18 20:59 Metoprolol Tartrate (Lopressor) 5 mg Q4H PRN IVP hr>130 02/07/18 07:14 03/09/18 07:13 Metoprolol Tartrate (Lopressor) 12.5 mg Q12HR NG 02/10/18 21:00 03/09/18 08:59 Olanzapine (ZyPREXA) 5 mg DAILY@2100 NG 02/10/18 21:00 03/12/18 20:59 02/10/18 20:05 Pantoprazole (Protonix) 40 mg DAILY IVP 02/07/18 09:21 03/09/18 09:20 02/11/18 08:19 Piperacillin Sod/ Tazobactam Sod 3.375 gm/Dextrose 110 ml @ 27.5 mls/hr EVERY 8 HOURS IVPB 02/07/18 14:00 02/15/18 13:59 02/11/18 14:08 Vancomycin HCl (Vanco rx to dose) 1 ea DAILY PRN MISC PER PHARMACY 02/07/18 07:30 03/09/18 07:29 Vancomycin HCl 500 mg/Dextrose 110 ml @ 110 mls/hr Q12H IVPB 02/10/18 20:00 02/15/18 19:59 02/11/18 08:20 Figueroa Redd MD Feb 11, 2018 14:37
[2018-02-11] MEDS ORDERED: NS 275ml ONE (15:39)
--- NOTE | 2018-02-11 15:41 | General Progress Note ---
Assessment/Plan Status: progressing Assessment/Plan ASSESSMENT: 1. Shortness of breath, possibly secondary to pneumonia, possible sepsis. 2. Acute respiratory failure requiring BiPAP. 3. Acute kidney injury. 4. Elevated troponin, possibly from demand ischemia. 5. Developmental delay. 6. Dysphagia. 7. Psoriasis. 8. Acute left cerebellar infarction PLAN: 1. Continue the patient on BiPAP support. 2. Monitor vitals and I and O's. 3. Keep NPO for now until fully awake and pending swallow evaluation. 4. The patient was started on IV vancomycin and Zosyn. 5. To continue breathing treatment with frequent suctioning p.r.n. 6. Continue intermediate medications. 7. Monitor troponin. 8. Heparin for DVT prophylaxis. 9. Protonix for GI prophylaxis. 10. Dr. Forrest, Pulmonary consult and Dr. Johnston, ID consult. 11. change aspirin to 81 mg daily 12. fu Echo and carotic us and venous duplex 13 gi consult 14. NGT for meds and tube feeding conitnue supportive care ok to transfer to telemetry when bed available Subjective Date patient seen: Feb 11, 2018 ROS Limited/Unobtainable: Yes Allergies: Coded Allergies: SULFA (SULFONAMIDE ANTIBIOTICS) (Verified Allergy, Unknown, 09/02/15) Objective Last 24 Hour Vital Signs Date Time Temp Pulse Resp B/P (MAP) Pulse Ox O2 Delivery O2 Flow Rate FiO2 02/11/18 15:10 72 21 99 Venturi Mask 10.0 45 02/11/18 14:59 73 19 99 Venturi Mask 10.0 45 02/11/18 12:00 Venturi Mask 02/11/18 12:00 98.2 73 16 99/49 (66) 93 98.2 02/11/18 12:00 82 02/11/18 12:00 12.0 50 02/11/18 10:40 68 21 99 Venturi Mask 10.0 45 02/11/18 10:30 67 16 98 Venturi Mask 10.0 45 02/11/18 09:00 12.0 50 02/11/18 08:20 89 95/61 02/11/18 08:00 84 02/11/18 08:00 99.1 70 22 110/61 (77) 96 99.1 02/11/18 08:00 Venturi Mask 10/7/18 06:55 74 20 99 Venturi Mask 10.0 45 02/11/18 06:46 96 Venturi Mask 10.0 45 02/11/18 06:46 Venturi Mask 10.0 45 02/11/18 06:46 77 16 96 Venturi Mask 10.0 45 02/11/18 05:27 71 19 100 Full Face 40 02/11/18 04:00 98.4 70 18 110/70 (83) 99 98.4 02/11/18 04:00 12.0 50 02/11/18 04:00 81 02/11/18 04:00 Venturi Mask 02/11/18 03:13 68 18 99 Bi-pap 45 02/11/18 03:06 73 18 98 Full Face 45 02/11/18 03:05 75 18 97 Bi-pap 45 02/11/18 01:02 62 18 100 Full Face 50 02/11/18 00:00 Venturi Mask 02/11/18 00:00 12.0 50 02/11/18 00:00 69 02/11/18 00:00 98.0 52 20 116/64 (81) 96 98.0 02/10/18 22:41 78 20 98 Bi-pap 50 02/10/18 22:31 64 18 99 Bi-pap 50 02/10/18 22:31 64 18 99 Full Face 50 02/10/18 20:00 97.9 54 20 90/51 (64) 99 97.9 02/10/18 20:00 Venturi Mask 02/10/18 20:00 68 90/60 02/10/18 20:00 66 02/10/18 20:00 12.0 50 02/10/18 19:06 57 20 99 Venturi Mask 12.0 50 02/10/18 19:04 Venturi Mask 12.0 50 02/10/18 18:59 59 20 99 Venturi Mask 12.0 50 02/10/18 18:59 100 Venturi Mask 12.0 50 02/10/18 16:00 57 02/10/18 16:00 97.9 54 20 90/51 (64) 99 97.9 02/10/18 16:00 Venturi Mask 02/10/18 16:00 12.0 50 Intake and Output 02/10/18 02/11/18 19:00 07:00 Intake Total 30 ml 1312.5 ml Output Total 1000 ml 550 ml Balance -970 ml 762.5 ml IV Total 30 ml 1312.5 ml Output Urine Total 1000 ml 550 ml Laboratory Tests 02/11/18 08:30: White Blood Count 5.9, Red Blood Count 4.15L, Hemoglobin 13.1L, Hematocrit 40.4L , Mean Corpuscular Volume 97, Mean Corpuscular Hemoglobin 31.6H, Mean Corpuscular Hemoglobin Concent 32.5, Red Cell Distribution Width 14.0, Platelet Count 205, Mean Platelet Volume 7.4, Neutrophils (%) (Auto) 66.7, Lymphocytes (% ) (Auto) 19.5L, Monocytes (%) (Auto) 9.4, Eosinophils (%) (Auto) 3.1H, Basophils (%) (Auto) 1.4, Sodium Level 138, Potassium Level 3.8, Chloride Level 103, Carbon Dioxide Level 29, Anion Gap 6, Blood Urea Nitrogen 3L, Creatinine 1.0, Estimat Glomerular Filtration Rate > 60, Glucose Level 107H, Calcium Level 8.9, Total Bilirubin 0.8, Aspartate Amino Transf (AST/SGOT) 12L, Alanine Aminotransferase (ALT/SGPT) 21, Alkaline Phosphatase 72, Total Protein 7.3, Albumin 2.3L, Globulin 5.0, Albumin/Globulin Ratio 0.5L Height (Feet): 5 Height (Inches): 2.00 Weight (Pounds): 113 General Appearance: no apparent distress, alert EENT: PERRL/EOMI, pharynx normal Neck: non-tender, supple Cardiovascular: normal rate, regular rhythm, no gallop/murmur, no JVD Respiratory/Chest: chest wall non-tender, normal breath sounds, no respiratory distress Abdomen: non tender, soft, no mass Extremities: non-tender, normal inspection, no calf tenderness Neurologic: alert Skin: rash Lymphatic: normal anterior cervical (L), normal anterior cervical (R), normal posterior cervical (L), normal posterior cervical (R), normal submandibular (L) , normal submandibular (R), normal supraclavicular (L), normal supraclavicular ( R), normal axillary (L), normal axillary (R), normal inguinal (L), normal inguinal (R), normal other Diann Silver MD Feb 11, 2018:41
[2018-02-11 16:00] VITALS: BP 103/58
[2018-02-11] MEDS ORDERED: Acetaminophen 650mg/20.3ml NG PRN (18:18)
[2018-02-11] MEDS ORDERED: Metoprolol 5mg/5ml Inj IVP PRN (18:19)
[2018-02-11 20:00] VITALS: BP 105/70
--- NOTE | 2018-02-11 20:24 | Cardiology Progress Note ---
Assessment/Plan Assessment/Plan respiratory distress, most likley due to pneumonia ? aspiration Will review echo tomorrow, continue supportive measures Subjective Subjective The patient is resting in bed, not responding to verbal stimuli seems to be breathing better Objective Last 24 Hour Vital Signs Date Time Temp Pulse Resp B/P (MAP) Pulse Ox O2 Delivery O2 Flow Rate FiO2 02/11/18 19:24 78 18 99 Venturi Mask 10.0 45 02/11/18 19:14 75 20 99 Venturi Mask 10.0 45 02/11/18 19:14 Venturi Mask 10.0 45 02/11/18 19:14 99 Venturi Mask 10.0 45 02/11/18 16:00 Venturi Mask 02/11/18 16:00 67 02/11/18 16:00 98.1 73 18 103/58 (73) 99 98.1 02/11/18 16:00 12.0 50 02/11/18 15:10 72 21 99 Venturi Mask 10.0 45 02/11/18 14:59 73 19 99 Venturi Mask 10.0 45 02/11/18 12:00 Venturi Mask 02/11/18 12:00 98.2 73 16 99/49 (66) 93 98.2 02/11/18 12:00 82 02/11/18 12:00 12.0 50 02/11/18 10:40 68 21 99 Venturi Mask 10.0 45 02/11/18 10:30 67 16 98 Venturi Mask 10.0 45 02/11/18 09:00 12.0 50 02/11/18 08:20 89 95/61 02/11/18 08:00 84 02/11/18 08:00 99.1 70 22 110/61 (77) 96 99.1 02/11/18 08:00 Venturi Mask 02/11/18 06:55 74 20 99 Venturi Mask 10.0 45 02/11/18 06:46 96 Venturi Mask 10.0 45 02/11/18 06:46 Venturi Mask 10.0 45 02/11/18 06:46 77 16 96 Venturi Mask 10.0 45 02/11/18 05:27 71 19 100 Full Face 40 02/11/18 04:00 98.4 70 18 110/70 (83) 99 98.4 02/11/18 04:00 12.0 50 02/11/18 04:00 81 02/11/18 04:00 Venturi Mask 02/11/18 03:13 68 18 99 Bi-pap 45 02/11/18 03:06 73 18 98 Full Face 45 02/11/18 03:05 75 18 97 Bi-pap 45 02/11/18 01:02 62 18 100 Full Face 50 02/11/18 00:00 Venturi Mask 02/11/18 00:00 12.0 50 02/11/18 00:00 69 02/11/18 00:00 98.0 52 20 116/64 (81) 96 98.0 02/10/18 22:41 78 20 98 Bi-pap 50 02/10/18 22:31 64 18 99 Bi-pap 50 02/10/18 22:31 64 18 99 Full Face 50 General Appearance: lethargic EENT: PERRL/EOMI Neck: no JVD Rhythm: NSR Cardiovascular: regular rhythm Respiratory/Chest: rhonchi - bilaterally Abdomen: soft Extremities: trace edema Intake and Output 02/10/18 02/11/18 19:00 07:00 Intake Total 30 ml 1312.5 ml Output Total 1000 ml 550 ml Balance -970 ml 762.5 ml IV Total 30 ml 1312.5 ml Output Urine Total 1000 ml 550 ml Laboratory Tests Test 02/11/18 08:30 White Blood Count 5.9 K/UL (4.8-10.8) Red Blood Count 4.15 M/UL (4.70-6.10) L Hemoglobin 13.1 G/DL (14.2-18.0) L Hematocrit 40.4 % (42.0-52.0) L Mean Corpuscular Volume 97 FL (80-99) Mean Corpuscular Hemoglobin 31.6 PG (27.0-31.0) H Mean Corpuscular Hemoglobin Concent 32.5 G/DL (32.0-36.0) Red Cell Distribution Width 14.0 % (11.6-14.8) Platelet Count 205 K/UL (150-450) Mean Platelet Volume 7.4 FL (6.5-10.1) Neutrophils (%) (Auto) 66.7 % (45.0-75.0) Lymphocytes (%) (Auto) 19.5 % (20.0-45.0) L Monocytes (%) (Auto) 9.4 % (1.0-10.0) Eosinophils (%) (Auto) 3.1 % (0.0-3.0) H Basophils (%) (Auto) 1.4 % (0.0-2.0) Sodium Level 138 MMOL/L (136-145) Potassium Level 3.8 MMOL/L (3.5-5.1) Chloride Level 103 MMOL/L (98-107) Carbon Dioxide Level 29 MMOL/L (21-32) Anion Gap 6 mmol/L (5-15) Blood Urea Nitrogen 3 mg/dL (7-18) L Creatinine 1.0 MG/DL (0.55-1.30) Estimat Glomerular Filtration Rate > 60 mL/min (>60) Glucose Level 107 MG/DL (74-106) H Calcium Level 8.9 MG/DL (8.5-10.1) Total Bilirubin 0.8 MG/DL (0.2-1.0) Aspartate Amino Transf (AST/SGOT) 12 U/L (15-37) L Alanine Aminotransferase (ALT/SGPT) 21 U/L (12-78) Alkaline Phosphatase 72 U/L (46-116) Total Protein 7.3 G/DL (6.4-8.2) Albumin 2.3 G/DL (3.4-5.0) L Globulin 5.0 g/dL Albumin/Globulin Ratio 0.5 (1.0-2.7) L Felecia Real MD Feb 11, 2018 20:24
[2018-02-11] MEDS: Dyna-Hex 2% Top Sol 2oz TOPIC SCH (21:00)
[2018-02-11] MEDS ORDERED: Milk of Magnesia 30ml Ud NG PRN (21:00)
[2018-02-11] MEDS: Vancomycin 500 MG in D5W 110 ML IVPB SCH (21:03)
[2018-02-12] VITALS: BP 130/90
[2018-02-12] MEDS: Albuterol/Ipratropium 3ml neb HHN SCH ×2 (03:32→19:13)
[2018-02-12 04:00] VITALS: BP 118/73
[2018-02-12] MEDS: Piperacillin/Tazobactam 3.375 GM in D5W 110 ML IVPB SCH ×3 (06:09→22:18)
[2018-02-12] MEDS: Heparin 5000 units/ml inj SUBQ SCH ×3 (06:11→22:18)
[2018-02-12 08:00] VITALS: BP 96/54
[2018-02-12] MEDS ORDERED: Aspirin Baby 81mg NG SCH (09:00)
[2018-02-12] MEDS: Metoprolol Tartrate 12.5mg TAB NG SCH ×2 (09:00→20:16)
--- NOTE | 2018-02-12 09:40 | Cardiology Report ---
APPROVED REPORT EXAM: Two-dimensional and M-mode echocardiogram with Doppler and color Doppler. INDICATION Endocarditis M-Mode DIMENSIONS IVSd1.6 (0.7-1.1cm)Left Atrium (MM)2.1 (1.6-4.0cm) LVDd3.6 (3.5-5.6cm)Aortic Root3.0 (2.0-3.7cm) PWd1.2 (0.7-1.1cm)Aortic Cusp Exc.1.7 (1.5-2.0cm) LVDs1.6 (2.5-4.0cm) PWs1.7 cm Technically difficult study due to patient position and ventilatior Study quality precludes accurate assessment of regional wall motion. Normal left ventricular chamber size, systolic function and wall motion. Left ventricular ejection fraction estimated to be 65 %. Mild left ventricular hypertrophy. Small pericardial effusion. All other cardiac chamber sizes are within normal limits. Mild focal aortic valve sclerosis with adequate cusp excursion. Mildly thickened mitral valve leaflets with normal excursion. Mild mitral annulus and aortic root calcification. Normal pulmonic valve structure. Normal tricuspid valve structure. IVC measures at 1.9 cm with physiological collapse. A color flow and spectral Doppler study was performed and revealed: No aortic insufficiency. No mitral regurgitation. Mitral diastolic velocities suggest mild left ventricular diastolic dysfunction (Grade I). Mild tricuspid regurgitation. Tricuspid systolic velocities suggests peak right ventricular systolic pressure of 44 mmHg, consistent with mild pulmonary hypertension. No pulmonic regurgitation present.
[2018-02-12] MEDS: Vancomycin 500 MG in D5W 110 ML IVPB SCH ×2 (09:51→20:15)
--- NOTE | 2018-02-12 09:55 | Diagnostic Imaging Report ---
Indication: NG tube Comparison: 02/10/2018 Single view of the abdomen obtained Findings: The NG tube is in the stomach but the proximal port is right at the EG junction and the tube may be advanced slightly further for better positioning. The stomach air bubble is quite large. A right femoral line is noted. There is contrast within the small bowel. There is a scoliosis again noted within the lumbar spine. The heart appears enlarged. IMPRESSION: Nasogastric tube slightly proximal in location and should be advanced further
[2018-02-12] MEDS: Pantoprazole Inj IVP SCH (09:58)
[2018-02-12] MEDS: Tums 500mg GT SCH ×3 (09:58→17:35)
[2018-02-12] MEDS: Docusate 100mg/10ml Liq NG SCH ×2 (09:58→17:35)
[2018-02-12] MEDS: Aspirin Baby 81mg NG SCH (09:58)
[2018-02-12] MEDS: levETIRAcetam 1,000mg/NS100ml 100 ML IVPB SCH ×2 (09:59→20:15)
[2018-02-12] MEDS: D5 1/2NS w/KCl 20mEq 1,000 ML IV SCH (11:27)
--- NOTE | 2018-02-12 11:31 | Infectious Diseases Prog Note ---
"Assessment/Plan Assessment/Plan antibiotics : vancomycin iv, zosyn A 1. MRSA | e.coli pneumonia 2. respiratory failure 3. subdural hematoma 4. mental retardation 5. MRSA sepsis ? endocarditis 6. CVA P 1. continue vancomycin iv 2. continue zosyn 4 more days 3. will follow up cultures Subjective ROS Limited/Unobtainable: Yes Allergies: Coded Allergies: SULFA (SULFONAMIDE ANTIBIOTICS) (Verified Allergy, Unknown, 09/02/15) Objective Vital Signs Last 24 Hour Vital Signs Date Time Temp Pulse Resp B/P (MAP) Pulse Ox O2 Delivery O2 Flow Rate FiO2 02/12/18 10:55 Venturi Mask 8.0 40 02/12/18 10:55 Venturi Mask 8.0 40 02/12/18 09:00 67 96/54 02/12/18 09:00 Venturi Mask 02/12/18 08:00 98.2 67 20 96/54 (68) 98 98.2 02/12/18 08:00 8.0 40 02/12/18 07:39 58 22 97 Venturi Mask 8.0 40 02/12/18 07:39 57 22 97 Venturi Mask 8.0 40 02/12/18 07:38 Venturi Mask 8.0 40 02/12/18 07:37 97 Venturi Mask 8.0 40 02/12/18 05:14 88 16 99 40 02/12/18 04:00 40 02/12/18 04:00 99.0 76 19 118/73 (88) 97 99.0 02/12/18 04:00 70 02/12/18 03:42 53 17 99 Bi-pap 40 02/12/18 03:32 50 16 97 Full Face 40 02/12/18 03:32 50 27 97 Bi-pap 40 02/12/18 03:32 50 27 Bi-pap 40 02/12/18 01:05 73 17 99 Full Face 40 02/12/18 00:00 40 02/12/18 00:00 98.3 71 19 130/90 (103) 96 98.3 02/12/18 00:00 77 02/11/18 23:24 89 20 98 Bi-pap 40 02/11/18 23:21 62 20 99 Full Face 40 02/11/18 23:14 87 20 97 Bi-pap 40 02/11/18 21:20 81 18 97 Full Face 40 02/11/18 21:01 65 105/70 02/11/18 21:00 Venturi Mask 02/11/18 20:14 65 18 99 Full Face 40 02/11/18 20:00 98.9 65 19 105/70 (82) 99 98.9 02/11/18 20:00 71 02/11/18 20:00 40 02/11/18 19:24 78 18 99 Venturi Mask 10.0 45 02/11/18 19:14 75 20 99 Venturi Mask 10.0 45 02/11/18 19:14 Venturi Mask 10.0 45 02/11/18 19:14 99 Venturi Mask 10.0 45 02/11/18 16:00 Venturi Mask 02/11/18 16:00 67 02/11/18 16:00 98.1 73 18 103/58 (73) 99 98.1 02/11/18 16:00 12.0 50 02/11/18 15:10 72 21 99 Venturi Mask 10.0 45 02/11/18 14:59 73 19 99 Venturi Mask 10.0 45 02/11/18 12:00 Venturi Mask 02/11/18 12:00 98.2 73 16 99/49 (66) 93 98.2 02/11/18 12:00 82 02/11/18 12:00 12.0 50 Height (Feet): 5 Height (Inches): 2.00 Weight (Pounds): 115 Respiratory/Chest: lungs clear Cardiovascular: normal rate, regular rhythm, no gallop/murmur Abdomen: soft, non tender Extremities: no edema, other - erythematous rash Laboratory Tests Test 02/12/18 06:50 Vancomycin Level Trough 13.8 ug/mL (5.0-12.0) H Current Medications Medications (Trade) Dose Ordered Sig/Eddy Route PRN Reason Start Time Stop Time Status Last Admin Dose Admin Acetaminophen (Tylenol) 650 mg Q6H PRN NG Mild Pain/Temp > 100.5 02/11/18 18:18 03/12/18 18:17 Aspirin (ASA) 81 mg DAILY NG 02/12/18 09:00 03/14/18 08:59 02/12/18 09:58 Atorvastatin Calcium (Lipitor) 10 mg BEDTIME NG 02/11/18 21:00 03/09/18 20:59 02/11/18 21:00 Calcium Carbonate (Tums) 500 mg THREE TIMES A DAY GT 02/12/18 09:00 03/09/18 08:59 02/12/18 09:58 Chlorhexidine Gluconate (Tesha-Hex 2%) 1 applic DAILY@2000 TOPIC 02/11/18 20:00 03/11/18 19:59 02/11/18 21:00 Dextrose/ Electrolytes 1,000 ml @ 60 mls/hr [id number] IV 02/11/18 18:15 03/09/18 07:59 02/12/18 11:27 Docusate Sodium (Colace) 100 mg TWICE A DAY NG 02/12/18 09:00 03/13/18 08:59 02/12/18 09:58 Heparin Sodium (Porcine) (Heparin 5000 units/ml) 5,000 units EVERY 8 HOURS SUBQ 02/11/18 22:00 03/09/18 13:59 02/12/18 06:11 Levetiracetam 100 ml @ 400 mls/hr Q12HR IVPB 02/11/18 21:00 03/09/18 08:59 02/12/18 09:59 Levothyroxine Sodium (Synthroid) 125 mcg DAILY IV 02/12/18 09:00 03/09/18 08:59 02/12/18 09:57 Magnesium Hydroxide (Mom) 30 ml HSPRN PRN NG Constipation 02/11/18 21:00 03/09/18 20:59 Metoprolol Tartrate (Lopressor) 5 mg Q4H PRN IVP hr>130 02/11/18 18:19 03/09/18 18:18 Metoprolol Tartrate (Lopressor) 12.5 mg Q12HR NG 02/11/18 21:00 03/09/18 08:59 02/11/18 21:01 Olanzapine (ZyPREXA) 5 mg DAILY@2100 NG 02/11/18 21:00 03/12/18 20:59 02/11/18 21:00 Pantoprazole (Protonix) 40 mg DAILY IVP 02/12/18 09:00 03/09/18 09:20 02/12/18 09:58 Piperacillin Sod/ Tazobactam Sod 3.375 gm/Dextrose 110 ml @ 27.5 mls/hr EVERY 8 HOURS IVPB 02/11/18 22:00 02/15/18 13:59 02/12/18 06:09 Vancomycin HCl (Vanco rx to dose) 1 ea DAILY PRN MISC PER PHARMACY 02/12/18 09:00 03/09/18 07:29 Vancomycin HCl 500 mg/Dextrose 110 ml @ 110 mls/hr Q12H IVPB 02/11/18 20:00 02/15/18 19:59 02/12/18 09:51 NINA ALVARADO Feb 12, 2018 11:31"
[2018-02-12 12:00] VITALS: BP 117/68
[2018-02-12] MEDS ORDERED: Albuterol/Ipratropium 3ml neb HHN PRN (14:17)
[2018-02-12 16:00] VITALS: BP 99/56
--- NOTE | 2018-02-12 18:06 | Pulmonology Progress Note ---
Assessment/Plan Problems: (1) Pneumonia (2) Sepsis (3) Congenital heart disease, adult (4) Down syndrome (5) Mental retardation (6) Anxiety Assessment/Plan ASSESSMENT: The patient is a 67-year-old male with a history of mental retardation and chronic subdural hematomas, recently admitted to [facility] with tracheobronchitis and poor mucociliary clearance, now presenting with dehydration, mild troponin elevation, acute kidney injury, and possible right infrahilar infiltrate. PROBLEM LIST: 1. Respiratory failure 2. Right perihilar infiltrate, healthcare-associated pneumonia. 3. MRSA sepsis and pneumonia 4. Acute kidney injury, likely dehydration. 5. Mild troponin elevation, likely demand ischemia. 6. History of recurrent aspiration pneumonia in the past. 7. Chronic subdural hematoma. 8. Mental retardation. 9. Hypothyroidism. 10. Chronic right bundle-branch block. 11. Acute on chronic CVA TREATMENT PLAN: 1. BiPAP PRN and qHS 2. Titrate down FiO2 to keep SaO2 > 90%. 3. RTC and PRN HHN's, CPT 4. Mucomyst and PRN Robitussin 5. Abx per ID, F/U Cx's 5. NPO, NGTF's, TOURIST INFORMATION ASSISTANT therapy, GI recs 6. Given elevated D-dimer, negative duplex, elevated PA pressure and hypoxemia will check a VQ scan 7. Hep SQ for DVT Px 8. FC Subjective Allergies: Coded Allergies: SULFA (SULFONAMIDE ANTIBIOTICS) (Verified Allergy, Unknown, 09/02/15) Subjective AFVSS on 8L VM + cough + SOB no F/C no CP no distress Objective Last 24 Hour Vital Signs Date Time Temp Pulse Resp B/P (MAP) Pulse Ox O2 Delivery O2 Flow Rate FiO2 02/12/18 16:01 68 02/12/18 16:00 98.1 72 20 99/56 (70) 96 98.1 02/12/18 16:00 8.0 40 02/12/18 13:58 Venturi Mask 8.0 40 02/12/18 13:58 Venturi Mask 8.0 40 02/12/18 12:00 98.2 94 20 117/68 (84) 96 98.2 02/12/18 12:00 8.0 40 02/12/18 11:41 61 10/8/18 10:55 Venturi Mask 8.0 40 02/12/18 10:55 Venturi Mask 8.0 40 02/12/18 09:00 67 96/54 02/12/18 09:00 Venturi Mask 02/12/18 08:00 98.2 67 20 96/54 (68) 98 98.2 02/12/18 08:00 8.0 40 02/12/18 07:39 58 22 97 Venturi Mask 8.0 40 02/12/18 07:39 57 22 97 Venturi Mask 8.0 40 02/12/18 07:38 68 02/12/18 07:38 Venturi Mask 8.0 40 02/12/18 07:37 97 Venturi Mask 8.0 40 02/12/18 05:14 88 16 99 40 02/12/18 04:00 40 02/12/18 04:00 99.0 76 19 118/73 (88) 97 99.0 02/12/18 04:00 70 02/12/18 03:42 53 17 99 Bi-pap 40 02/12/18 03:32 50 16 97 Full Face 40 02/12/18 03:32 50 27 97 Bi-pap 40 02/12/18 03:32 50 27 Bi-pap 40 02/12/18 01:05 73 17 99 Full Face 40 02/12/18 00:00 40 02/12/18 00:00 98.3 71 19 130/90 (103) 96 98.3 02/12/18 00:00 77 02/11/18 23:24 89 20 98 Bi-pap 40 02/11/18 23:21 62 20 99 Full Face 40 02/11/18 23:14 87 20 97 Bi-pap 40 02/11/18 21:20 81 18 97 Full Face 40 02/11/18 21:01 65 105/70 02/11/18 21:00 Venturi Mask 02/11/18 20:14 65 18 99 Full Face 40 02/11/18 20:00 98.9 65 19 105/70 (82) 99 98.9 02/11/18 20:00 71 02/11/18 20:00 40 02/11/18 19:24 78 18 99 Venturi Mask 10.0 45 02/11/18 19:14 75 20 99 Venturi Mask 10.0 45 02/11/18 19:14 Venturi Mask 10.0 45 02/11/18 19:14 99 Venturi Mask 10.0 45 Intake and Output 02/11/18 02/12/18 19:00 07:00 Intake Total 1280.0 ml 1070.0 ml Output Total 1350 ml Balance -70.0 ml 1070.0 ml Free Water 40 ml 150 ml IV Total 1090.0 ml 560.0 ml Tube Feeding 150 ml 360 ml Output Urine Total 1350 ml # Voids 3 # Bowel Movements 3 General Appearance: cachetic HEENT: normocephalic, atraumatic, anicteric, mucous membranes moist, other - NGT, FM Respiratory/Chest: rhonchi Cardiovascular: normal peripheral pulses, normal rate, regular rhythm Abdomen: normal bowel sounds, soft, non tender, no organomegaly, non distended Extremities: no cyanosis, no clubbing, no edema Laboratory Tests 02/12/18 06:50: Vancomycin Level Trough 13.8H Current Medications Medications (Trade) Dose Ordered Sig/Eddy Route PRN Reason Start Time Stop Time Status Last Admin Dose Admin Acetaminophen (Tylenol) 650 mg Q6H PRN NG Mild Pain/Temp > 100.5 02/11/18 18:18 03/12/18 18:17 Albuterol/ Ipratropium (Albuterol/ Ipratropium) 3 ml Q4H PRN HHN Shortness of Breath 02/12/18 14:17 02/17/18 14:16 Aspirin (ASA) 81 mg DAILY NG 02/12/18 09:00 03/14/18 08:59 02/12/18 09:58 Atorvastatin Calcium (Lipitor) 10 mg BEDTIME NG 02/11/18 21:00 03/09/18 20:59 02/11/18 21:00 Calcium Carbonate (Tums) 500 mg THREE TIMES A DAY GT 02/12/18 09:00 03/09/18 08:59 02/12/18 17:35 Chlorhexidine Gluconate (Tesha-Hex 2%) 1 applic DAILY@2000 TOPIC 02/11/18 20:00 03/11/18 19:59 02/11/18 21:00 Dextrose/ Electrolytes 1,000 ml @ 60 mls/hr [id number] IV 02/11/18 18:15 03/09/18 07:59 02/12/18 11:27 Docusate Sodium (Colace) 100 mg TWICE A DAY NG 02/12/18 09:00 03/13/18 08:59 02/12/18 17:35 Heparin Sodium (Porcine) (Heparin 5000 units/ml) 5,000 units EVERY 8 HOURS SUBQ 02/11/18 22:00 03/09/18 13:59 02/12/18 13:40 Levetiracetam 100 ml @ 400 mls/hr Q12HR IVPB 02/11/18 21:00 03/09/18 08:59 02/12/18 09:59 Levothyroxine Sodium (Synthroid) 125 mcg DAILY IV 02/12/18 09:00 03/09/18 08:59 02/12/18 09:57 Magnesium Hydroxide (Mom) 30 ml HSPRN PRN NG Constipation 02/11/18 21:00 03/09/18 20:59 Metoprolol Tartrate (Lopressor) 5 mg Q4H PRN IVP hr>130 02/11/18 18:19 03/09/18 18:18 Metoprolol Tartrate (Lopressor) 12.5 mg Q12HR NG 02/11/18 21:00 03/09/18 08:59 02/11/18 21:01 Olanzapine (ZyPREXA) 5 mg DAILY@2100 NG 02/11/18 21:00 03/12/18 20:59 02/11/18 21:00 Pantoprazole (Protonix) 40 mg DAILY IVP 02/12/18 09:00 03/09/18 09:20 02/12/18 09:58 Piperacillin Sod/ Tazobactam Sod 3.375 gm/Dextrose 110 ml @ 27.5 mls/hr EVERY 8 HOURS IVPB 02/11/18 22:00 02/15/18 13:59 02/12/18 13:39 Vancomycin HCl (Vanco rx to dose) 1 ea DAILY PRN MISC PER PHARMACY 02/12/18 09:00 03/09/18 07:29 Vancomycin HCl 500 mg/Dextrose 110 ml @ 110 mls/hr Q12H IVPB 02/11/18 20:00 02/15/18 19:59 02/12/18 09:51 Sae Forrest MD Feb 12, 2018 18:06
[2018-02-12] MEDS ORDERED: guaiFENesin 100mg/5ml Liq ud ORAL PRN (18:15)
[2018-02-12 19:57] VITALS: BP 98/52
[2018-02-12] MEDS: Dyna-Hex 2% Top Sol 2oz TOPIC SCH (20:15)
--- NOTE | 2018-02-12 20:31 | Cardiology Progress Note ---
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 pneumonia arf hs of svt chronic subdural hematoma eczema not seem in any repirto distress ekg without any changes bioethics notation from icu noted echo ntied normal lv systic function to review bp borderline no svt has ahd bronchospasm will hold bb for short period of time then resum e once breathign is imporved [facility] data reviwed for this evaluation awiat id input consider surveillance cx Subjective ROS Limited/Unobtainable: Yes Objective Last 24 Hour Vital Signs Date Time Temp Pulse Resp B/P (MAP) Pulse Ox O2 Delivery O2 Flow Rate FiO2 02/12/18 20:16 65 98/52 02/12/18 19:57 97.5 65 16 98/52 (67) 99 97.5 02/12/18 19:31 67 22 98 Venturi Mask 8.0 40 02/12/18 19:16 98 Venturi Mask 8.0 40 02/12/18 19:16 Venturi Mask 8.0 40 02/12/18 19:13 65 20 97 Venturi Mask 8.0 40 02/12/18 16:01 68 02/12/18 16:00 98.1 72 20 99/56 (70) 96 98.1 02/12/18 16:00 8.0 40 02/12/18 13:58 Venturi Mask 8.0 40 02/12/18 13:58 Venturi Mask 8.0 40 02/12/18 12:00 98.2 94 20 117/68 (84) 96 98.2 02/12/18 12:00 8.0 40 02/12/18 11:41 61 02/12/18 10:55 Venturi Mask 8.0 40 02/12/18 10:55 Venturi Mask 8.0 40 02/12/18 09:00 67 96/54 02/12/18 09:00 Venturi Mask 02/12/18 08:00 98.2 67 20 96/54 (68) 98 98.2 02/12/18 08:00 8.0 40 02/12/18 07:39 58 22 97 Venturi Mask 8.0 40 02/12/18 07:39 57 22 97 Venturi Mask 8.0 40 02/12/18 07:38 68 02/12/18 07:38 Venturi Mask 8.0 40 02/12/18 07:37 97 Venturi Mask 8.0 40 02/12/18 05:14 88 16 99 40 02/12/18 04:00 40 02/12/18 04:00 99.0 76 19 118/73 (88) 97 99.0 02/12/18 04:00 70 02/12/18 03:42 53 17 99 Bi-pap 40 02/12/18 03:32 50 16 97 Full Face 40 02/12/18 03:32 50 27 97 Bi-pap 40 02/12/18 03:32 50 27 Bi-pap 40 02/12/18 01:05 73 17 99 Full Face 40 02/12/18 00:00 40 02/12/18 00:00 98.3 71 19 130/90 (103) 96 98.3 02/12/18 00:00 77 02/11/18 23:24 89 20 98 Bi-pap 40 02/11/18 23:21 62 20 99 Full Face 40 02/11/18 23:14 87 20 97 Bi-pap 40 02/11/18 21:20 81 18 97 Full Face 40 02/11/18 21:01 65 105/70 02/11/18 21:00 Venturi Mask General Appearance: no apparent distress, alert Neck: supple Cardiovascular: normal rate, regular rhythm Respiratory/Chest: crackles/rales - left base Abdomen: normal bowel sounds, non tender, soft Extremities: no swelling Intake and Output 02/11/18 02/12/18 19:00 07:00 Intake Total 1280.0 ml 1070.0 ml Output Total 1350 ml Balance -70.0 ml 1070.0 ml Free Water 40 ml 150 ml IV Total 1090.0 ml 560.0 ml Tube Feeding 150 ml 360 ml Output Urine Total 1350 ml # Voids 3 # Bowel Movements 3 Laboratory Tests Test 02/12/18 06:50 Vancomycin Level Trough 13.8 ug/mL (5.0-12.0) H Amos Sue MD Feb 12, 2018 20:31
--- NOTE | 2018-02-12 20:51 | General Progress Note ---
Assessment/Plan Status: progressing Assessment/Plan ASSESSMENT: 1. Shortness of breath, possibly secondary to pneumonia, possible sepsis. 2. Acute respiratory failure requiring BiPAP. 3. Acute kidney injury. 4. Elevated troponin, possibly from demand ischemia. 5. Developmental delay. 6. Dysphagia. 7. Psoriasis. 8. Acute left cerebellar infarction 9. MRSA bacteremia PLAN: 1. Continue the patient on BiPAP support prn 2. Monitor vitals and I and O's. 3. advance NGT and start diet in cxr confirmed palcement 4. The patient was started on IV vancomycin and Zosyn. 5. To continue breathing treatment with frequent suctioning p.r.n. 6. Continue snf medications. 7. Monitor troponin. 8. Heparin for DVT prophylaxis. 9. Protonix for GI prophylaxis. 10. Dr. Forrest, Pulmonary consult and Dr. Johnston, ID consult. 11. change aspirin to 81 mg daily 12. fu Echo and carotic us and venous duplex 13 gi consult appreciated, NGT for now repeat swallow eval later when more stable 14. NGT for meds and tube feeding 15. repeat Blood cultures to check for clearance of MRSA conitnue supportive care continue telemetry discussed with brother over the phone Subjective Date patient seen: Feb 12, 2018 ROS Limited/Unobtainable: Yes Allergies: Coded Allergies: SULFA (SULFONAMIDE ANTIBIOTICS) (Verified Allergy, Unknown, 09/02/15) Objective Last 24 Hour Vital Signs Date Time Temp Pulse Resp B/P (MAP) Pulse Ox O2 Delivery O2 Flow Rate FiO2 02/12/18 20:16 65 98/52 02/12/18 19:57 97.5 65 16 98/52 (67) 99 97.5 02/12/18 19:31 67 22 98 Venturi Mask 8.0 40 02/12/18 19:16 98 Venturi Mask 8.0 40 02/12/18 19:16 Venturi Mask 8.0 40 02/12/18 19:13 65 20 97 Venturi Mask 8.0 40 02/12/18 16:01 68 02/12/18 16:00 98.1 72 20 99/56 (70) 96 98.1 02/12/18 16:00 8.0 40 02/12/18 13:58 Venturi Mask 8.0 40 02/12/18 13:58 Venturi Mask 8.0 40 02/12/18 12:00 98.2 94 20 117/68 (84) 96 98.2 02/12/18 12:00 8.0 40 02/12/18 11:41 61 02/12/18 10:55 Venturi Mask 8.0 40 02/12/18 10:55 Venturi Mask 8.0 40 02/12/18 09:00 67 96/54 02/12/18 09:00 Venturi Mask 02/12/18 08:00 98.2 67 20 96/54 (68) 98 98.2 02/12/18 08:00 8.0 40 02/12/18 07:39 58 22 97 Venturi Mask 8.0 40 02/12/18 07:39 57 22 97 Venturi Mask 8.0 40 02/12/18 07:38 68 02/12/18 07:38 Venturi Mask 8.0 40 02/12/18 07:37 97 Venturi Mask 8.0 40 02/12/18 05:14 88 16 99 40 02/12/18 04:00 40 02/12/18 04:00 99.0 76 19 118/73 (88) 97 99.0 02/12/18 04:00 70 02/12/18 03:42 53 17 99 Bi-pap 40 02/12/18 03:32 50 16 97 Full Face 40 02/12/18 03:32 50 27 97 Bi-pap 40 02/12/18 03:32 50 27 Bi-pap 40 02/12/18 01:05 73 17 99 Full Face 40 02/12/18 00:00 40 02/12/18 00:00 98.3 71 19 130/90 (103) 96 98.3 02/12/18 00:00 77 02/11/18 23:24 89 20 98 Bi-pap 40 02/11/18 23:21 62 20 99 Full Face 40 02/11/18 23:14 87 20 97 Bi-pap 40 02/11/18 21:20 81 18 97 Full Face 40 02/11/18 21:01 65 105/70 02/11/18 21:00 Venturi Mask Intake and Output 02/11/18 02/12/18 19:00 07:00 Intake Total 1280.0 ml 1070.0 ml Output Total 1350 ml Balance -70.0 ml 1070.0 ml Free Water 40 ml 150 ml IV Total 1090.0 ml 560.0 ml Tube Feeding 150 ml 360 ml Output Urine Total 1350 ml # Voids 3 # Bowel Movements 3 Laboratory Tests 02/12/18 06:50: Vancomycin Level Trough 13.8H Height (Feet): 5 Height (Inches): 2.00 Weight (Pounds): 115 General Appearance: no apparent distress, alert EENT: PERRL/EOMI, pharynx normal Neck: non-tender, supple Cardiovascular: normal rate, regular rhythm, no gallop/murmur, no JVD Respiratory/Chest: chest wall non-tender, normal breath sounds, no respiratory distress Abdomen: non tender, soft, no mass Extremities: non-tender, normal inspection, no calf tenderness Neurologic: responsive Skin: rash Lymphatic: normal anterior cervical (L), normal anterior cervical (R), normal posterior cervical (L), normal posterior cervical (R), normal submandibular (L) , normal submandibular (R), normal supraclavicular (L), normal supraclavicular ( R), normal axillary (L), normal axillary (R), normal inguinal (L), normal inguinal (R), normal other Diann Silver MD Feb 12, 2018 20:51
--- NOTE | 2018-02-12 21:12 | General Progress Note ---
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 - pneumonitis - failed swallow - h/o CHF Recommendations - NGT - Abx - Continue TF - increase rate to meet demand - may need eventual GT Subjective Allergies: Coded Allergies: SULFA (SULFONAMIDE ANTIBIOTICS) (Verified Allergy, Unknown, 09/02/15) Subjective Above noted on NGT feeds ST noted on Abx for PNA Objective Last 24 Hour Vital Signs Date Time Temp Pulse Resp B/P (MAP) Pulse Ox O2 Delivery O2 Flow Rate FiO2 02/12/18 20:16 65 98/52 02/12/18 19:57 97.5 65 16 98/52 (67) 99 97.5 02/12/18 19:31 67 22 98 Venturi Mask 8.0 40 02/12/18 19:16 98 Venturi Mask 8.0 40 02/12/18 19:16 Venturi Mask 8.0 40 02/12/18 19:13 65 20 97 Venturi Mask 8.0 40 02/12/18 16:01 68 02/12/18 16:00 98.1 72 20 99/56 (70) 96 98.1 02/12/18 16:00 8.0 40 02/12/18 13:58 Venturi Mask 8.0 40 02/12/18 13:58 Venturi Mask 8.0 40 02/12/18 12:00 98.2 94 20 117/68 (84) 96 98.2 02/12/18 12:00 8.0 40 02/12/18 11:41 61 02/12/18 10:55 Venturi Mask 8.0 40 02/12/18 10:55 Venturi Mask 8.0 40 02/12/18 09:00 67 96/54 02/12/18 09:00 Venturi Mask 02/12/18 08:00 98.2 67 20 96/54 (68) 98 98.2 02/12/18 08:00 8.0 40 02/12/18 07:39 58 22 97 Venturi Mask 8.0 40 02/12/18 07:39 57 22 97 Venturi Mask 8.0 40 02/12/18 07:38 68 02/12/18 07:38 Venturi Mask 8.0 40 02/12/18 07:37 97 Venturi Mask 8.0 40 02/12/18 05:14 88 16 99 40 10/8/18 04:00 40 02/12/18 04:00 99.0 76 19 118/73 (88) 97 99.0 02/12/18 04:00 70 02/12/18 03:42 53 17 99 Bi-pap 40 02/12/18 03:32 50 16 97 Full Face 40 02/12/18 03:32 50 27 97 Bi-pap 40 02/12/18 03:32 50 27 Bi-pap 40 02/12/18 01:05 73 17 99 Full Face 40 02/12/18 00:00 40 02/12/18 00:00 98.3 71 19 130/90 (103) 96 98.3 02/12/18 00:00 77 02/11/18 23:24 89 20 98 Bi-pap 40 02/11/18 23:21 62 20 99 Full Face 40 02/11/18 23:14 87 20 97 Bi-pap 40 02/11/18 21:20 81 18 97 Full Face 40 Intake and Output 02/11/18 02/12/18 19:00 07:00 Intake Total 1280.0 ml 1070.0 ml Output Total 1350 ml Balance -70.0 ml 1070.0 ml Free Water 40 ml 150 ml IV Total 1090.0 ml 560.0 ml Tube Feeding 150 ml 360 ml Output Urine Total 1350 ml # Voids 3 # Bowel Movements 3 Laboratory Tests 02/12/18 06:50: Vancomycin Level Trough 13.8H Height (Feet): 5 Height (Inches): 2.00 Weight (Pounds): 115 Objective WDWN WM NCAT supple Chest b/l Ronchi RR abd soft ND no edema OBS Michael Estevez MD Feb 12, 2018 21:12
[2018-02-12] MEDS: Triamcinolone 0.5% Cr 15gm TOPIC SCH (22:25)
[2018-02-13] VITALS: BP 96/50
[2018-02-13] MEDS: Albuterol/Ipratropium 3ml neb HHN SCH ×4 (01:20→18:55)
[2018-02-13] MEDS: D5 1/2NS w/KCl 20mEq 1,000 ML IV SCH (03:35)
[2018-02-13 04:00] VITALS: BP 123/75
[2018-02-13] MEDS: Piperacillin/Tazobactam 3.375 GM in D5W 110 ML IVPB SCH ×3 (05:56→22:47)
[2018-02-13] MEDS: Heparin 5000 units/ml inj SUBQ SCH ×3 (05:57→22:48)
[2018-02-13 06:23] LABS: BASOPHILS % (AUTO) 1.6 % (0.0-2.0); EOSINOPHILS % (AUTO) 2.3 % (0.0-3.0); HEMATOCRIT 38.8 % (42.0-52.0); HEMOGLOBIN 13.1 G/DL (14.2-18.0); LYMPHOCYTES % (AUTO) 16.3 % (20.0-45.0); MEAN CORPUSCULAR VOLUME 97 FL (80-99); NEUTROPHILS % (AUTO) 68.9 % (45.0-75.0); PLATELET COUNT 195 K/UL (150-450); RED BLOOD COUNT 3.99 M/UL (4.70-6.10); WHITE BLOOD COUNT 6.9 K/UL (4.8-10.8)
[2018-02-13 06:42] LABS: ALANINE AMINOTRANSFERASE 11 U/L (12-78); ALBUMIN 2.4 G/DL (3.4-5.0); ALBUMIN/GLOBULIN RATIO 0.5 (1.0-2.7); ALKALINE PHOSPHATASE 77 U/L (46-116); ANION GAP 5 mmol/L (5-15); ASPARTATE AMINO TRANSFERASE 11 U/L (15-37); BILIRUBIN,TOTAL 0.6 MG/DL (0.2-1.0); BLOOD UREA NITROGEN 6 mg/dL (7-18); CARBON DIOXIDE 31 MMOL/L (21-32); CHLORIDE 102 MMOL/L (98-107); POTASSIUM 3.8 MMOL/L (3.5-5.1); SODIUM 138 MMOL/L (136-145)
[2018-02-13 08:00] VITALS: BP 110/66
[2018-02-13] MEDS: Metoprolol Tartrate 12.5mg TAB NG SCH ×2 (08:35→20:35)
[2018-02-13] MEDS: Aspirin Baby 81mg NG SCH (08:35)
[2018-02-13] MEDS: Vancomycin 500 MG in D5W 110 ML IVPB SCH ×2 (08:35→20:35)
[2018-02-13] MEDS: Pantoprazole Inj IVP SCH (08:35)
[2018-02-13] MEDS: Triamcinolone 0.5% Cr 15gm TOPIC SCH ×3 (08:36→19:02)
[2018-02-13] MEDS: levETIRAcetam 1,000mg/NS100ml 100 ML IVPB SCH ×2 (08:36→20:35)
[2018-02-13] MEDS: Tums 500mg GT SCH ×3 (08:36→18:00)
[2018-02-13] MEDS: Docusate 100mg/10ml Liq NG SCH ×2 (08:36→19:01)
[2018-02-13] MEDS ORDERED: Triamcinolone 0.5% Cr 15gm TOPIC SCH (09:00)
--- NOTE | 2018-02-13 09:04 | Pulmonology Progress Note ---
Assessment/Plan Problems: (1) Pneumonia (2) Sepsis (3) Congenital heart disease, adult (4) Down syndrome (5) Mental retardation (6) Anxiety Assessment/Plan ASSESSMENT: The patient is a 67-year-old male with a history of mental retardation and chronic subdural hematomas, recently admitted to [facility] with tracheobronchitis and poor mucociliary clearance, now presenting with dehydration, mild troponin elevation, acute kidney injury, and possible right infrahilar infiltrate. PROBLEM LIST: 1. Respiratory failure 2. Right perihilar infiltrate, healthcare-associated pneumonia. 3. MRSA sepsis and pneumonia 4. Acute kidney injury, likely dehydration. 5. Mild troponin elevation, likely demand ischemia. 6. History of recurrent aspiration pneumonia in the past. 7. Chronic subdural hematoma. 8. Mental retardation. 9. Hypothyroidism. 10. Chronic right bundle-branch block. 11. Acute on chronic CVA TREATMENT PLAN: 1. BiPAP PRN and qHS 2. Titrate down FiO2 to keep SaO2 > 90%. 3. RTC and PRN HHN's, CPT 4. Mucinex and PRN Robitussin 5. Abx per ID, F/U Cx's 5. NPO, NGTF's, [employer] therapy, GI recs 6. Monitor volumes, DC IVF 7. Given elevated D-dimer, negative duplex, elevated PA pressure and hypoxemia will check a VQ scan 8. Hep SQ for DVT Px 9. FC Subjective Allergies: Coded Allergies: SULFA (SULFONAMIDE ANTIBIOTICS) (Verified Allergy, Unknown, 09/02/15) Subjective AFVSS remains on 8L VM + cough + congestion + SOB no F/C no CP no distress Objective Last 24 Hour Vital Signs Date Time Temp Pulse Resp B/P (MAP) Pulse Ox O2 Delivery O2 Flow Rate FiO2 02/13/18 08:35 77 110/66 02/13/18 08:00 97.5 77 18 110/66 (81) 98 97.5 02/13/18 08:00 8.0 40 02/13/18 07:20 62 22 98 Venturi Mask 8.0 40 02/13/18 07:19 98 Venturi Mask 8.0 40 02/13/18 07:19 Venturi Mask 8.0 40 02/13/18 07:13 47 24 98 Venturi Mask 8.0 40 02/13/18 04:00 8.0 40 02/13/18 04:00 60 02/13/18 04:00 98.5 62 17 123/75 (91) 100 98.5 02/13/18 02:43 71 16 99 Full Face 40 02/13/18 01:48 66 24 98 Bi-pap 40 02/13/18 01:35 69 17 98 Full Face 40 02/13/18 01:20 63 18 97 Bi-pap 40 02/13/18 00:00 58 02/13/18 00:00 8.0 40 02/13/18 00:00 97.4 62 16 96/50 (65) 99 97.4 02/12/18 22:53 65 16 98 Full Face 40 02/12/18 21:00 Venturi Mask 02/12/18 20:16 65 98/52 02/12/18 20:00 73 02/12/18 20:00 8.0 40 02/12/18 19:57 97.5 65 16 98/52 (67) 99 97.5 02/12/18 19:31 67 22 98 Venturi Mask 8.0 40 02/12/18 19:16 98 Venturi Mask 8.0 40 02/12/18 19:16 Venturi Mask 8.0 40 02/12/18 19:13 65 20 97 Venturi Mask 8.0 40 02/12/18 16:01 68 02/12/18 16:00 98.1 72 20 99/56 (70) 96 98.1 02/12/18 16:00 8.0 40 02/12/18 13:58 Venturi Mask 8.0 40 02/12/18 13:58 Venturi Mask 8.0 40 02/12/18 12:00 98.2 94 20 117/68 (84) 96 98.2 02/12/18 12:00 8.0 40 02/12/18 11:41 61 02/12/18 10:55 Venturi Mask 8.0 40 02/12/18 10:55 Venturi Mask 8.0 40 Intake and Output 02/12/18 02/13/18 19:00 07:00 Intake Total 330 ml Balance 330 ml Tube Feeding 330 ml # Voids 2 3 General Appearance: no acute distress, cachetic HEENT: normocephalic, atraumatic, anicteric, mucous membranes moist, other Respiratory/Chest: rhonchi Cardiovascular: normal peripheral pulses, normal rate, regular rhythm Abdomen: normal bowel sounds, soft, non tender, no organomegaly, non distended Extremities: no cyanosis, no clubbing, no edema Microbiology Date/Time Source Procedure Growth Status 02/11/18 12:20 Blood Blood Culture - Preliminary NO GROWTH AFTER 24 HOURS Resulted 02/11/18 12:08 Blood Blood Culture - Preliminary NO GROWTH AFTER 24 HOURS Resulted Laboratory Tests 02/13/18 05:00: White Blood Count 6.9, Red Blood Count 3.99L, Hemoglobin 13.1L, Hematocrit 38.8L , Mean Corpuscular Volume 97, Mean Corpuscular Hemoglobin 32.9H, Mean Corpuscular Hemoglobin Concent 33.8, Red Cell Distribution Width 14.0, Platelet Count 195, Mean Platelet Volume 8.0, Neutrophils (%) (Auto) 68.9, Lymphocytes (% ) (Auto) 16.3L, Monocytes (%) (Auto) 11.0H, Eosinophils (%) (Auto) 2.3, Basophils (%) (Auto) 1.6, Sodium Level 138, Potassium Level 3.8, Chloride Level 102, Carbon Dioxide Level 31, Anion Gap 5, Blood Urea Nitrogen 6L, Creatinine 1.0, Estimat Glomerular Filtration Rate > 60, Glucose Level 112H, Calcium Level 9.0, Total Bilirubin 0.6, Aspartate Amino Transf (AST/SGOT) 11L, Alanine Aminotransferase (ALT/SGPT) 11L, Alkaline Phosphatase 77, Troponin I 0.029, Total Protein 7.5, Albumin 2.4L, Globulin 5.1, Albumin/Globulin Ratio 0.5L Current Medications Medications (Trade) Dose Ordered Sig/Eddy Route PRN Reason Start Time Stop Time Status Last Admin Dose Admin Acetaminophen (Tylenol) 650 mg Q6H PRN NG Mild Pain/Temp > 100.5 02/11/18 18:18 03/12/18 18:17 Albuterol/ Ipratropium (Albuterol/ Ipratropium) 3 ml Q4H PRN HHN Shortness of Breath 02/12/18 14:17 02/17/18 14:16 Albuterol/ Ipratropium (Albuterol/ Ipratropium) 3 ml Q6HRT HHN 02/12/18 19:00 02/17/18 18:59 02/13/18 07:21 Aspirin (ASA) 81 mg DAILY NG 02/12/18 09:00 03/14/18 08:59 02/13/18 08:35 Atorvastatin Calcium (Lipitor) 10 mg BEDTIME NG 02/11/18 21:00 03/09/18 20:59 02/12/18 20:15 Calcium Carbonate (Tums) 500 mg THREE TIMES A DAY GT 02/12/18 09:00 03/09/18 08:59 02/13/18 08:36 Chlorhexidine Gluconate (Tesha-Hex 2%) 1 applic DAILY@2000 TOPIC 02/11/18 20:00 03/11/18 19:59 02/12/18 20:15 Dextrose/ Electrolytes 1,000 ml @ 60 mls/hr [id number] IV 02/11/18 18:15 03/09/18 07:59 02/12/18 11:27 Docusate Sodium (Colace) 100 mg TWICE A DAY NG 02/12/18 09:00 03/13/18 08:59 02/13/18 08:36 Guaifenesin (Robitussin) 100 mg Q4H PRN ORAL For Cough 02/12/18 18:15 03/14/18 18:14 Heparin Sodium (Porcine) (Heparin 5000 units/ml) 5,000 units EVERY 8 HOURS SUBQ 02/11/18 22:00 03/09/18 13:59 02/13/18 05:57 Levetiracetam 100 ml @ 400 mls/hr Q12HR IVPB 02/11/18 21:00 03/09/18 08:59 02/13/18 08:36 Levothyroxine Sodium (Synthroid) 125 mcg DAILY IV 02/12/18 09:00 03/09/18 08:59 02/12/18 09:57 Magnesium Hydroxide (Mom) 30 ml HSPRN PRN NG Constipation 02/11/18 21:00 03/09/18 20:59 Metoprolol Tartrate (Lopressor) 5 mg Q4H PRN IVP hr>130 02/11/18 18:19 03/09/18 18:18 Metoprolol Tartrate (Lopressor) 12.5 mg Q12HR NG 02/11/18 21:00 03/09/18 08:59 02/13/18 08:35 Olanzapine (ZyPREXA) 5 mg DAILY@2100 NG 02/11/18 21:00 03/12/18 20:59 02/12/18 20:15 Pantoprazole (Protonix) 40 mg DAILY IVP 02/12/18 09:00 03/09/18 09:20 02/13/18 08:35 Piperacillin Sod/ Tazobactam Sod 3.375 gm/Dextrose 110 ml @ 27.5 mls/hr EVERY 8 HOURS IVPB 02/11/18 22:00 02/15/18 13:59 02/13/18 05:56 Triamcinolone Acetonide (Kenalog 0.5% Cr) 1 applic THREE TIMES A DAY TOPIC 02/12/18 22:00 03/14/18 21:59 02/13/18 08:36 Vancomycin HCl (Vanco rx to dose) 1 ea DAILY PRN MISC PER PHARMACY 02/12/18 09:00 03/09/18 07:29 Vancomycin HCl 500 mg/Dextrose 110 ml @ 110 mls/hr Q12H IVPB 02/11/18 20:00 02/15/18 19:59 02/13/18 08:35 Sae Forrest MD Feb 13, 2018 09:04
--- NOTE | 2018-02-13 10:34 | Diagnostic Imaging Report ---
Indication: NG tube placement Comparison: Earlier same day Single view of the abdomen obtained Findings: NG tube is in the stomach and satisfactory position. There is also a right femoral central line. Scoliosis noted. Bowel gas pattern is nonspecific. IMPRESSION: Satisfactory position of the nasogastric
[2018-02-13 12:00] VITALS: BP 115/65
--- NOTE | 2018-02-13 12:41 | Diagnostic Imaging Report ---
Indication: Chest pain Technique: A ventilation/perfusion scan was performed. Ventilation was performed utilizing 40 mCi of Technetium 99m-DTPA. Perfusion was performed with 5.2 mCi of technetium 99m-MAA injected intravenously. Multiple side by side projections obtained. Findings: Ventilation is relatively homogeneous. No defects are identified. Perfusion is relatively homogeneous. No defects are identified. There is some limitation in quality due to the patient's arms being by his side.. Patient was not able to cooperate fully with the study. Impression: Low probability for pulmonary embolus. Some limitations as above
--- NOTE | 2018-02-13 13:38 | Infectious Diseases Prog Note ---
Assessment/Plan Assessment/Plan A: 1. pneumonia with MRSA & E. coli 2. respiratory failure 3. Acute lacunar CVA 4. mental retardation 5. staph aureus sepsis r/o endocarditis P 1. continue vancomycin iv, 2. Continue Zosyn X 3 days 3. Repeat blood cultures are negative Subjective ROS Limited/Unobtainable: Yes Allergies: Coded Allergies: SULFA (SULFONAMIDE ANTIBIOTICS) (Verified Allergy, Unknown, 09/02/15) Objective Vital Signs Last 24 Hour Vital Signs Date Time Temp Pulse Resp B/P (MAP) Pulse Ox O2 Delivery O2 Flow Rate FiO2 02/13/18 12:53 64 20 98 Venturi Mask 8.0 40 02/13/18 12:45 53 22 97 Venturi Mask 8.0 40 02/13/18 09:00 Venturi Mask 02/13/18 08:35 77 110/66 02/13/18 08:00 97.5 77 18 110/66 (81) 98 97.5 02/13/18 08:00 8.0 40 02/13/18 07:35 59 02/13/18 07:20 62 22 98 Venturi Mask 8.0 40 02/13/18 07:19 98 Venturi Mask 8.0 40 02/13/18 07:19 Venturi Mask 8.0 40 02/13/18 07:13 47 24 98 Venturi Mask 8.0 40 02/13/18 04:00 8.0 40 02/13/18 04:00 60 02/13/18 04:00 98.5 62 17 123/75 (91) 100 98.5 02/13/18 02:43 71 16 99 Full Face 40 02/13/18 01:48 66 24 98 Bi-pap 40 02/13/18 01:35 69 17 98 Full Face 40 02/13/18 01:20 63 18 97 Bi-pap 40 02/13/18 00:00 58 02/13/18 00:00 8.0 40 02/13/18 00:00 97.4 62 16 96/50 (65) 99 97.4 02/12/18 22:53 65 16 98 Full Face 40 02/12/18 21:00 Venturi Mask 02/12/18 20:16 65 98/52 02/12/18 20:00 73 02/12/18 20:00 8.0 40 02/12/18 19:57 97.5 65 16 98/52 (67) 99 97.5 02/12/18 19:31 67 22 98 Venturi Mask 8.0 40 02/12/18 19:16 98 Venturi Mask 8.0 40 02/12/18 19:16 Venturi Mask 8.0 40 02/12/18 19:13 65 20 97 Venturi Mask 8.0 40 02/12/18 16:01 68 02/12/18 16:00 98.1 72 20 99/56 (70) 96 98.1 02/12/18 16:00 8.0 40 02/12/18 13:58 Venturi Mask 8.0 40 02/12/18 13:58 Venturi Mask 8.0 40 Height (Feet): 5 Height (Inches): 2.00 Weight (Pounds): 113 General Appearance: no acute distress HEENT: mucous membranes moist Respiratory/Chest: lungs clear, other - oxygen by mask Abdomen: soft, non tender, other - NGT feeding Extremities: no edema 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: unresponsiveness Microbiology Date/Time Source Procedure Growth Status 02/11/18 12:20 Blood Blood Culture - Preliminary NO GROWTH AFTER 24 HOURS Resulted 02/11/18 12:08 Blood Blood Culture - Preliminary NO GROWTH AFTER 24 HOURS Resulted Laboratory Tests Test 02/13/18 05:00 White Blood Count 6.9 K/UL (4.8-10.8) Red Blood Count 3.99 M/UL (4.70-6.10) L Hemoglobin 13.1 G/DL (14.2-18.0) L Hematocrit 38.8 % (42.0-52.0) L Mean Corpuscular Volume 97 FL (80-99) Mean Corpuscular Hemoglobin 32.9 PG (27.0-31.0) H Mean Corpuscular Hemoglobin Concent 33.8 G/DL (32.0-36.0) Red Cell Distribution Width 14.0 % (11.6-14.8) Platelet Count 195 K/UL (150-450) Mean Platelet Volume 8.0 FL (6.5-10.1) Neutrophils (%) (Auto) 68.9 % (45.0-75.0) Lymphocytes (%) (Auto) 16.3 % (20.0-45.0) L Monocytes (%) (Auto) 11.0 % (1.0-10.0) H Eosinophils (%) (Auto) 2.3 % (0.0-3.0) Basophils (%) (Auto) 1.6 % (0.0-2.0) Sodium Level 138 MMOL/L (136-145) Potassium Level 3.8 MMOL/L (3.5-5.1) Chloride Level 102 MMOL/L (98-107) Carbon Dioxide Level 31 MMOL/L (21-32) Anion Gap 5 mmol/L (5-15) Blood Urea Nitrogen 6 mg/dL (7-18) L Creatinine 1.0 MG/DL (0.55-1.30) Estimat Glomerular Filtration Rate > 60 mL/min (>60) Glucose Level 112 MG/DL (74-106) H Calcium Level 9.0 MG/DL (8.5-10.1) Total Bilirubin 0.6 MG/DL (0.2-1.0) Aspartate Amino Transf (AST/SGOT) 11 U/L (15-37) L Alanine Aminotransferase (ALT/SGPT) 11 U/L (12-78) L Alkaline Phosphatase 77 U/L (46-116) Troponin I 0.029 ng/mL (0.000-0.056) Total Protein 7.5 G/DL (6.4-8.2) Albumin 2.4 G/DL (3.4-5.0) L Globulin 5.1 g/dL Albumin/Globulin Ratio 0.5 (1.0-2.7) L Current Medications Medications (Trade) Dose Ordered Sig/Eddy Route PRN Reason Start Time Stop Time Status Last Admin Dose Admin Acetaminophen (Tylenol) 650 mg Q6H PRN NG Mild Pain/Temp > 100.5 02/11/18 18:18 03/12/18 18:17 Albuterol/ Ipratropium (Albuterol/ Ipratropium) 3 ml Q4H PRN HHN Shortness of Breath 02/12/18 14:17 02/17/18 14:16 Albuterol/ Ipratropium (Albuterol/ Ipratropium) 3 ml Q6HRT HHN 02/12/18 19:00 02/17/18 18:59 02/13/18 12:52 Aspirin (ASA) 81 mg DAILY NG 02/12/18 09:00 03/14/18 08:59 02/13/18 08:35 Atorvastatin Calcium (Lipitor) 10 mg BEDTIME NG 02/11/18 21:00 03/09/18 20:59 02/12/18 20:15 Calcium Carbonate (Tums) 500 mg THREE TIMES A DAY GT 02/12/18 09:00 03/09/18 08:59 02/13/18 08:36 Chlorhexidine Gluconate (Tesha-Hex 2%) 1 applic DAILY@2000 TOPIC 02/11/18 20:00 03/11/18 19:59 02/12/18 20:15 Docusate Sodium (Colace) 100 mg TWICE A DAY NG 02/12/18 09:00 03/13/18 08:59 02/13/18 08:36 Guaifenesin (Mucinex ER) 600 mg Q12HR ORAL 02/13/18 21:00 03/15/18 20:59 Guaifenesin (Robitussin) 100 mg Q4H PRN ORAL For Cough 02/12/18 18:15 03/14/18 18:14 Heparin Sodium (Porcine) (Heparin 5000 units/ml) 5,000 units EVERY 8 HOURS SUBQ 02/11/18 22:00 03/09/18 13:59 02/13/18 05:57 Levetiracetam 100 ml @ 400 mls/hr Q12HR IVPB 02/11/18 21:00 03/09/18 08:59 02/13/18 08:36 Levothyroxine Sodium (Synthroid) 125 mcg DAILY IV 02/12/18 09:00 03/09/18 08:59 02/13/18 10:47 Magnesium Hydroxide (Mom) 30 ml HSPRN PRN NG Constipation 02/11/18 21:00 03/09/18 20:59 Metoprolol Tartrate (Lopressor) 5 mg Q4H PRN IVP hr>130 02/11/18 18:19 03/09/18 18:18 Metoprolol Tartrate (Lopressor) 12.5 mg Q12HR NG 02/11/18 21:00 03/09/18 08:59 02/13/18 08:35 Olanzapine (ZyPREXA) 5 mg DAILY@2100 NG 02/11/18 21:00 03/12/18 20:59 10/8/18 20:15 Pantoprazole (Protonix) 40 mg DAILY IVP 02/12/18 09:00 03/09/18 09:20 02/13/18 08:35 Piperacillin Sod/ Tazobactam Sod 3.375 gm/Dextrose 110 ml @ 27.5 mls/hr EVERY 8 HOURS IVPB 02/11/18 22:00 02/15/18 13:59 02/13/18 05:56 Triamcinolone Acetonide (Kenalog 0.5% Cr) 1 applic THREE TIMES A DAY TOPIC 02/12/18 22:00 03/14/18 21:59 02/13/18 08:36 Vancomycin HCl (Vanco rx to dose) 1 ea DAILY PRN MISC PER PHARMACY 02/12/18 09:00 03/09/18 07:29 Vancomycin HCl 500 mg/Dextrose 110 ml @ 110 mls/hr Q12H IVPB 02/11/18 20:00 02/15/18 19:59 02/13/18 08:35 Wilbur Escudero MD Feb 13, 2018 13:38
[2018-02-13] MEDS ORDERED: guaiFENesin 100mg/5ml Liq ud NG PRN (13:45)
[2018-02-13 16:00] VITALS: BP 126/96
--- NOTE | 2018-02-13 18:50 | General Progress Note ---
Assessment/Plan Status: progressing Assessment/Plan ASSESSMENT: 1. Shortness of breath, possibly secondary to pneumonia, possible sepsis. 2. Acute respiratory failure requiring BiPAP. 3. Acute kidney injury. 4. Elevated troponin, possibly from demand ischemia. 5. Developmental delay. 6. Dysphagia. 7. Psoriasis. 8. Acute left cerebellar infarction 9. MRSA bacteremia/Pneumonia PLAN: 1. Continue the patient on BiPAP support prn 2. Monitor vitals and I and O's. 3. advance NGT and start diet in cxr confirmed palcement 4. The patient was started on IV vancomycin and Zosyn. 5. To continue breathing treatment with frequent suctioning p.r.n. 6. Continue mcc medications. 7. Monitor troponin. 8. Heparin for DVT prophylaxis. 9. Protonix for GI prophylaxis. 10. Dr. Forrest, Pulmonary consult and Dr. Jonhston, ID consult. 11. change aspirin to 81 mg daily 12. fu Echo and carotic us and venous duplex 13 gi consult appreciated, NGT for now repeat swallow eval later when more stable 14. NGT for meds and tube feeding 15. repeat Blood cultures to check for clearance of MRSA conitnue supportive care continue telemetry VQ scan negative for PE monitor labs Subjective Date patient seen: Feb 13, 2018 ROS Limited/Unobtainable: Yes Allergies: Coded Allergies: SULFA (SULFONAMIDE ANTIBIOTICS) (Verified Allergy, Unknown, 09/02/15) Objective Last 24 Hour Vital Signs Date Time Temp Pulse Resp B/P (MAP) Pulse Ox O2 Delivery O2 Flow Rate FiO2 02/13/18 16:00 98.0 66 18 126/96 (106) 98 98.0 02/13/18 16:00 8.0 40 02/13/18 15:48 68 02/13/18 12:53 64 20 98 Venturi Mask 8.0 40 02/13/18 12:45 53 22 97 Venturi Mask 8.0 40 02/13/18 12:00 8.0 40 02/13/18 12:00 98.2 75 18 115/65 (82) 95 98.2 02/13/18 11:54 80 02/13/18 09:00 Venturi Mask 02/13/18 08:35 77 110/66 02/13/18 08:00 97.5 77 18 110/66 (81) 98 97.5 02/13/18 08:00 8.0 40 02/13/18 07:35 59 02/13/18 07:20 62 22 98 Venturi Mask 8.0 40 02/13/18 07:19 98 Venturi Mask 8.0 40 02/13/18 07:19 Venturi Mask 8.0 40 02/13/18 07:13 47 24 98 Venturi Mask 8.0 40 02/13/18 04:00 8.0 40 02/13/18 04:00 60 02/13/18 04:00 98.5 62 17 123/75 (91) 100 98.5 02/13/18 02:43 71 16 99 Full Face 40 02/13/18 01:48 66 24 98 Bi-pap 40 02/13/18 01:35 69 17 98 Full Face 40 02/13/18 01:20 63 18 97 Bi-pap 40 02/13/18 00:00 58 02/13/18 00:00 8.0 40 02/13/18 00:00 97.4 62 16 96/50 (65) 99 97.4 02/12/18 22:53 65 16 98 Full Face 40 02/12/18 21:00 Venturi Mask 02/12/18 20:16 65 98/52 02/12/18 20:00 73 02/12/18 20:00 8.0 40 02/12/18 19:57 97.5 65 16 98/52 (67) 99 97.5 02/12/18 19:31 67 22 98 Venturi Mask 8.0 40 02/12/18 19:16 98 Venturi Mask 8.0 40 02/12/18 19:16 Venturi Mask 8.0 40 02/12/18 19:13 65 20 97 Venturi Mask 8.0 40 Intake and Output 02/12/18 02/13/18 19:00 07:00 Intake Total 330 ml Balance 330 ml Tube Feeding 330 ml # Voids 2 3 Laboratory Tests 02/13/18 05:00: White Blood Count 6.9, Red Blood Count 3.99L, Hemoglobin 13.1L, Hematocrit 38.8L , Mean Corpuscular Volume 97, Mean Corpuscular Hemoglobin 32.9H, Mean Corpuscular Hemoglobin Concent 33.8, Red Cell Distribution Width 14.0, Platelet Count 195, Mean Platelet Volume 8.0, Neutrophils (%) (Auto) 68.9, Lymphocytes (% ) (Auto) 16.3L, Monocytes (%) (Auto) 11.0H, Eosinophils (%) (Auto) 2.3, Basophils (%) (Auto) 1.6, Sodium Level 138, Potassium Level 3.8, Chloride Level 102, Carbon Dioxide Level 31, Anion Gap 5, Blood Urea Nitrogen 6L, Creatinine 1.0, Estimat Glomerular Filtration Rate > 60, Glucose Level 112H, Calcium Level 9.0, Total Bilirubin 0.6, Aspartate Amino Transf (AST/SGOT) 11L, Alanine Aminotransferase (ALT/SGPT) 11L, Alkaline Phosphatase 77, Troponin I 0.029, Total Protein 7.5, Albumin 2.4L, Globulin 5.1, Albumin/Globulin Ratio 0.5L Height (Feet): 5 Height (Inches): 2.00 Weight (Pounds): 113 General Appearance: alert EENT: PERRL/EOMI, pharynx normal Neck: non-tender, supple Cardiovascular: normal rate, regular rhythm, no gallop/murmur, no JVD Respiratory/Chest: chest wall non-tender, normal breath sounds, no respiratory distress Abdomen: non tender, soft, no mass Extremities: non-tender, normal inspection, no calf tenderness Edema: no edema noted Arm (L), no edema noted Arm (R), no edema noted Leg (L), no edema noted Leg (R), no edema noted Pedal (L), no edema noted Pedal (R), no edema noted Generalized Neurologic: alert Skin: warm/dry, rash Lymphatic: normal anterior cervical (L), normal anterior cervical (R), normal posterior cervical (L), normal posterior cervical (R), normal submandibular (L) , normal submandibular (R), normal supraclavicular (L), normal supraclavicular ( R), normal axillary (L), normal axillary (R), normal inguinal (L), normal inguinal (R), normal other Diann Silver MD Feb 13, 2018 18:50
[2018-02-13 20:00] VITALS: BP 95/44
--- NOTE | 2018-02-13 20:02 | General Progress Note ---
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 - pneumonitis - failed swallow - h/o CHF Recommendations - NGT - Abx - Continue TF - increase rate to meet demand - may need eventual GT Subjective Allergies: Coded Allergies: SULFA (SULFONAMIDE ANTIBIOTICS) (Verified Allergy, Unknown, 09/02/15) Subjective Above noted on NGT feeds ST noted on Abx for PNA non interactive Objective Last 24 Hour Vital Signs Date Time Temp Pulse Resp B/P (MAP) Pulse Ox O2 Delivery O2 Flow Rate FiO2 02/13/18 19:06 72 18 98 Venturi Mask 8.0 40 02/13/18 18:55 Venturi Mask 8.0 40 02/13/18 18:55 68 20 99 Venturi Mask 8.0 40 02/13/18 18:55 99 Venturi Mask 8.0 40 02/13/18 16:00 98.0 66 18 126/96 (106) 98 98.0 02/13/18 16:00 8.0 40 02/13/18 15:48 68 02/13/18 12:53 64 20 98 Venturi Mask 8.0 40 02/13/18 12:45 53 22 97 Venturi Mask 8.0 40 02/13/18 12:00 8.0 40 02/13/18 12:00 98.2 75 18 115/65 (82) 95 98.2 02/13/18 11:54 80 02/13/18 09:00 Venturi Mask 02/13/18 08:35 77 110/66 02/13/18 08:00 97.5 77 18 110/66 (81) 98 97.5 02/13/18 08:00 8.0 40 02/13/18 07:35 59 02/13/18 07:20 62 22 98 Venturi Mask 8.0 40 02/13/18 07:19 98 Venturi Mask 8.0 40 02/13/18 07:19 Venturi Mask 8.0 40 02/13/18 07:13 47 24 98 Venturi Mask 8.0 40 02/13/18 04:00 8.0 40 02/13/18 04:00 60 02/13/18 04:00 98.5 62 17 123/75 (91) 100 98.5 02/13/18 02:43 71 16 99 Full Face 40 02/13/18 01:48 66 24 98 Bi-pap 40 02/13/18 01:35 69 17 98 Full Face 40 02/13/18 01:20 63 18 97 Bi-pap 40 02/13/18 00:00 58 02/13/18 00:00 8.0 40 02/13/18 00:00 97.4 62 16 96/50 (65) 99 97.4 02/12/18 22:53 65 16 98 Full Face 40 02/12/18 21:00 Venturi Mask 02/12/18 20:16 65 98/52 Intake and Output 02/12/18 02/13/18 19:00 07:00 Intake Total 330 ml Balance 330 ml Tube Feeding 330 ml # Voids 2 3 Laboratory Tests 02/13/18 05:00: White Blood Count 6.9, Red Blood Count 3.99L, Hemoglobin 13.1L, Hematocrit 38.8L , Mean Corpuscular Volume 97, Mean Corpuscular Hemoglobin 32.9H, Mean Corpuscular Hemoglobin Concent 33.8, Red Cell Distribution Width 14.0, Platelet Count 195, Mean Platelet Volume 8.0, Neutrophils (%) (Auto) 68.9, Lymphocytes (% ) (Auto) 16.3L, Monocytes (%) (Auto) 11.0H, Eosinophils (%) (Auto) 2.3, Basophils (%) (Auto) 1.6, Sodium Level 138, Potassium Level 3.8, Chloride Level 102, Carbon Dioxide Level 31, Anion Gap 5, Blood Urea Nitrogen 6L, Creatinine 1.0, Estimat Glomerular Filtration Rate > 60, Glucose Level 112H, Calcium Level 9.0, Total Bilirubin 0.6, Aspartate Amino Transf (AST/SGOT) 11L, Alanine Aminotransferase (ALT/SGPT) 11L, Alkaline Phosphatase 77, Troponin I 0.029, Total Protein 7.5, Albumin 2.4L, Globulin 5.1, Albumin/Globulin Ratio 0.5L Height (Feet): 5 Height (Inches): 2.00 Weight (Pounds): 113 Objective WDWN WM NCAT supple Chest b/l Luis RR abd soft ND no edema OBS Michael Estevez MD Feb 13, 2018 20:02
--- NOTE | 2018-02-13 20:17 | Cardiology Progress Note ---
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 pneumonia arf hs of svt chronic subdural hematoma eczema not seem in any respitratory distress ekg without any changes bioethics notation from icu noted atr [facility] echo noted normal lv systic function bp seem fine is afebril repeat blood cx neg but not mature short nsvt note remains on bb not have sig bornchospasm hemoadynamically stable at the moment Subjective ROS Limited/Unobtainable: Yes Objective Last 24 Hour Vital Signs Date Time Temp Pulse Resp B/P (MAP) Pulse Ox O2 Delivery O2 Flow Rate FiO2 02/13/18 19:06 72 18 98 Venturi Mask 8.0 40 02/13/18 18:55 Venturi Mask 8.0 40 02/13/18 18:55 68 20 99 Venturi Mask 8.0 40 02/13/18 18:55 99 Venturi Mask 8.0 40 02/13/18 16:00 98.0 66 18 126/96 (106) 98 98.0 02/13/18 16:00 8.0 40 02/13/18 15:48 68 02/13/18 12:53 64 20 98 Venturi Mask 8.0 40 02/13/18 12:45 53 22 97 Venturi Mask 8.0 40 02/13/18 12:00 8.0 40 02/13/18 12:00 98.2 75 18 115/65 (82) 95 98.2 02/13/18 11:54 80 02/13/18 09:00 Venturi Mask 02/13/18 08:35 77 110/66 02/13/18 08:00 97.5 77 18 110/66 (81) 98 97.5 02/13/18 08:00 8.0 40 02/13/18 07:35 59 02/13/18 07:20 62 22 98 Venturi Mask 8.0 40 02/13/18 07:19 98 Venturi Mask 8.0 40 02/13/18 07:19 Venturi Mask 8.0 40 02/13/18 07:13 47 24 98 Venturi Mask 8.0 40 02/13/18 04:00 8.0 40 02/13/18 04:00 60 02/13/18 04:00 98.5 62 17 123/75 (91) 100 98.5 02/13/18 02:43 71 16 99 Full Face 40 02/13/18 01:48 66 24 98 Bi-pap 40 02/13/18 01:35 69 17 98 Full Face 40 02/13/18 01:20 63 18 97 Bi-pap 40 02/13/18 00:00 58 02/13/18 00:00 8.0 40 02/13/18 00:00 97.4 62 16 96/50 (65) 99 97.4 02/12/18 22:53 65 16 98 Full Face 40 02/12/18 21:00 Venturi Mask 02/12/18 20:16 65 98/52 General Appearance: alert Neck: no JVD Cardiovascular: normal rate, regular rhythm Respiratory/Chest: rhonchi - left Abdomen: normal bowel sounds, non tender, soft Extremities: no swelling Intake and Output 02/12/18 02/13/18 19:00 07:00 Intake Total 330 ml Balance 330 ml Tube Feeding 330 ml # Voids 2 3 Laboratory Tests Test 02/13/18 05:00 White Blood Count 6.9 K/UL (4.8-10.8) Red Blood Count 3.99 M/UL (4.70-6.10) L Hemoglobin 13.1 G/DL (14.2-18.0) L Hematocrit 38.8 % (42.0-52.0) L Mean Corpuscular Volume 97 FL (80-99) Mean Corpuscular Hemoglobin 32.9 PG (27.0-31.0) H Mean Corpuscular Hemoglobin Concent 33.8 G/DL (32.0-36.0) Red Cell Distribution Width 14.0 % (11.6-14.8) Platelet Count 195 K/UL (150-450) Mean Platelet Volume 8.0 FL (6.5-10.1) Neutrophils (%) (Auto) 68.9 % (45.0-75.0) Lymphocytes (%) (Auto) 16.3 % (20.0-45.0) L Monocytes (%) (Auto) 11.0 % (1.0-10.0) H Eosinophils (%) (Auto) 2.3 % (0.0-3.0) Basophils (%) (Auto) 1.6 % (0.0-2.0) Sodium Level 138 MMOL/L (136-145) Potassium Level 3.8 MMOL/L (3.5-5.1) Chloride Level 102 MMOL/L (98-107) Carbon Dioxide Level 31 MMOL/L (21-32) Anion Gap 5 mmol/L (5-15) Blood Urea Nitrogen 6 mg/dL (7-18) L Creatinine 1.0 MG/DL (0.55-1.30) Estimat Glomerular Filtration Rate > 60 mL/min (>60) Glucose Level 112 MG/DL (74-106) H Calcium Level 9.0 MG/DL (8.5-10.1) Total Bilirubin 0.6 MG/DL (0.2-1.0) Aspartate Amino Transf (AST/SGOT) 11 U/L (15-37) L Alanine Aminotransferase (ALT/SGPT) 11 U/L (12-78) L Alkaline Phosphatase 77 U/L (46-116) Troponin I 0.029 ng/mL (0.000-0.056) Total Protein 7.5 G/DL (6.4-8.2) Albumin 2.4 G/DL (3.4-5.0) L Globulin 5.1 g/dL Albumin/Globulin Ratio 0.5 (1.0-2.7) L Microbiology Date/Time Source Procedure Growth Status 02/11/18 12:20 Blood Blood Culture - Preliminary NO GROWTH AFTER 24 HOURS Resulted 02/11/18 12:08 Blood Blood Culture - Preliminary NO GROWTH AFTER 24 HOURS Resulted Amos Sue MD Feb 13, 2018 20:17
[2018-02-13] MEDS: Dyna-Hex 2% Top Sol 2oz TOPIC SCH (20:34)
[2018-02-13] MEDS ORDERED: guaiFENesin ER 600mg tab ORAL SCH (21:00)
[2018-02-14] VITALS: BP 114/52
[2018-02-14] MEDS: Albuterol/Ipratropium 3ml neb HHN SCH ×4 (01:07→19:36)
[2018-02-14 04:00] VITALS: BP 96/58
[2018-02-14] MEDS: Piperacillin/Tazobactam 3.375 GM in D5W 110 ML IVPB SCH ×3 (06:00→22:36)
[2018-02-14] MEDS: Heparin 5000 units/ml inj SUBQ SCH ×3 (06:01→22:36)
[2018-02-14 08:00] VITALS: BP 100/48
[2018-02-14] MEDS: Metoprolol Tartrate 12.5mg TAB NG SCH ×2 (09:00→21:04)
[2018-02-14] MEDS: Triamcinolone 0.5% Cr 15gm TOPIC SCH ×3 (09:00→13:00)
[2018-02-14] MEDS: Vancomycin 500 MG in D5W 110 ML IVPB SCH ×2 (09:04→21:03)
[2018-02-14] MEDS: Pantoprazole Inj IVP SCH (09:10)
[2018-02-14] MEDS: Docusate 100mg/10ml Liq NG SCH ×2 (09:11→17:35)
[2018-02-14] MEDS: Tums 500mg GT SCH ×3 (09:11→17:35)
[2018-02-14] MEDS: Aspirin Baby 81mg NG SCH (09:11)
[2018-02-14] MEDS: levETIRAcetam 1,000mg/NS100ml 100 ML IVPB SCH ×2 (09:11→21:03)
--- NOTE | 2018-02-14 11:01 | Infectious Diseases Prog Note ---
"Assessment/Plan Assessment/Plan antibiotics : vancomycin iv, zosyn A 1. MRSA | e.coli pneumonia 2. respiratory failure resolved 3. subdural hematoma 4. mental retardation 5. MRSA sepsis ? endocarditis 6. CVA P 1. continue vancomycin iv 20 more days 2. continue zosyn 2 more days 3. will follow up cultures Subjective ROS Limited/Unobtainable: Yes Allergies: Coded Allergies: SULFA (SULFONAMIDE ANTIBIOTICS) (Verified Allergy, Unknown, 09/02/15) Objective Vital Signs Last 24 Hour Vital Signs Date Time Temp Pulse Resp B/P (MAP) Pulse Ox O2 Delivery O2 Flow Rate FiO2 02/14/18 10:07 73 18 99 Venturi Mask 8.0 40 02/14/18 09:59 72 18 99 Venturi Mask 8.0 40 02/14/18 09:00 72 100/48 02/14/18 09:00 Venturi Mask 02/14/18 08:00 98.4 72 22 100/48 (65) 99 98.4 02/14/18 08:00 8.0 02/14/18 07:30 Venturi Mask 8.0 40 02/14/18 07:30 98 Venturi Mask 8.0 40 02/14/18 05:45 72 18 98 02/14/18 04:00 98.1 58 19 96/58 (71) 99 98.1 02/14/18 04:00 59 02/14/18 04:00 8.0 40 02/14/18 03:04 67 17 98 Full Face 35 02/14/18 01:19 65 18 99 Venturi Mask 8.0 40 02/14/18 01:07 61 16 99 Bi-pap 40 02/14/18 01:07 61 17 99 Full Face 40 02/14/18 00:00 8.0 40 02/14/18 00:00 71 02/14/18 00:00 98.8 60 18 114/52 (72) 100 98.8 02/13/18 23:25 69 17 98 Full Face 40 02/13/18 22:15 72 17 99 Full Face 40 02/13/18 21:00 Venturi Mask 02/13/18 20:35 66 95/44 02/13/18 20:00 69 02/13/18 20:00 8.0 40 02/13/18 20:00 97.7 66 18 95/44 (61) 99 97.7 02/13/18 19:06 72 18 98 Venturi Mask 8.0 40 02/13/18 18:55 Venturi Mask 8.0 40 02/13/18 18:55 68 20 99 Venturi Mask 8.0 40 02/13/18 18:55 99 Venturi Mask 8.0 40 02/13/18 16:00 98.0 66 18 126/96 (106) 98 98.0 02/13/18 16:00 8.0 40 02/13/18 15:48 68 02/13/18 12:53 64 20 98 Venturi Mask 8.0 40 02/13/18 12:45 53 22 97 Venturi Mask 8.0 40 02/13/18 12:00 8.0 40 02/13/18 12:00 98.2 75 18 115/65 (82) 95 98.2 02/13/18 11:54 80 Height (Feet): 5 Height (Inches): 2.00 Weight (Pounds): 112 Respiratory/Chest: lungs clear Cardiovascular: normal rate, regular rhythm, no gallop/murmur Abdomen: soft, non tender Extremities: no edema Microbiology Date/Time Source Procedure Growth Status 02/11/18 12:20 Blood Blood Culture - Preliminary NO GROWTH AFTER 48 HOURS Resulted 02/11/18 12:08 Blood Blood Culture - Preliminary NO GROWTH AFTER 48 HOURS Resulted Current Medications Medications (Trade) Dose Ordered Sig/Eddy Route PRN Reason Start Time Stop Time Status Last Admin Dose Admin Acetaminophen (Tylenol) 650 mg Q6H PRN NG Mild Pain/Temp > 100.5 02/11/18 18:18 03/12/18 18:17 Albuterol/ Ipratropium (Albuterol/ Ipratropium) 3 ml Q4H PRN HHN Shortness of Breath 02/12/18 14:17 02/17/18 14:16 Albuterol/ Ipratropium (Albuterol/ Ipratropium) 3 ml Q6HRT HHN 02/12/18 19:00 02/17/18 18:59 02/14/18 10:00 Aspirin (ASA) 81 mg DAILY NG 02/12/18 09:00 03/14/18 08:59 02/14/18 09:11 Atorvastatin Calcium (Lipitor) 10 mg BEDTIME NG 02/11/18 21:00 03/09/18 20:59 02/13/18 20:35 Calcium Carbonate (Tums) 500 mg THREE TIMES A DAY GT 02/12/18 09:00 03/09/18 08:59 02/14/18 09:11 Chlorhexidine Gluconate (Tesha-Hex 2%) 1 applic DAILY@2000 TOPIC 02/11/18 20:00 03/11/18 19:59 02/13/18 20:34 Docusate Sodium (Colace) 100 mg TWICE A DAY NG 02/12/18 09:00 03/13/18 08:59 02/14/18 09:11 Guaifenesin (Robitussin) 100 mg Q4H PRN NG For Cough 02/13/18 13:45 03/14/18 18:14 Heparin Sodium (Porcine) (Heparin 5000 units/ml) 5,000 units EVERY 8 HOURS SUBQ 02/11/18 22:00 03/09/18 13:59 02/14/18 06:01 Levetiracetam 100 ml @ 400 mls/hr Q12HR IVPB 02/11/18 21:00 03/09/18 08:59 02/14/18 09:11 Levothyroxine Sodium (Synthroid) 125 mcg DAILY IV 02/12/18 09:00 03/09/18 08:59 02/14/18 09:57 Magnesium Hydroxide (Mom) 30 ml HSPRN PRN NG Constipation 02/11/18 21:00 03/09/18 20:59 Metoprolol Tartrate (Lopressor) 5 mg Q4H PRN IVP hr>130 02/11/18 18:19 03/09/18 18:18 Metoprolol Tartrate (Lopressor) 12.5 mg Q12HR NG 02/11/18 21:00 03/09/18 08:59 02/13/18 20:35 Olanzapine (ZyPREXA) 5 mg DAILY@2100 NG 02/11/18 21:00 03/12/18 20:59 02/13/18 20:34 Pantoprazole (Protonix) 40 mg DAILY IVP 02/12/18 09:00 03/09/18 09:20 02/14/18 09:10 Piperacillin Sod/ Tazobactam Sod 3.375 gm/Dextrose 110 ml @ 27.5 mls/hr EVERY 8 HOURS IVPB 02/11/18 22:00 02/16/18 23:00 02/14/18 06:00 Triamcinolone Acetonide (Kenalog 0.5% Cr) 1 applic THREE TIMES A DAY TOPIC 02/12/18 22:00 03/14/18 21:59 02/14/18 09:12 Vancomycin HCl (Vanco rx to dose) 1 ea DAILY PRN MISC PER PHARMACY 02/12/18 09:00 03/09/18 07:29 Vancomycin HCl 500 mg/Dextrose 110 ml @ 110 mls/hr Q12H IVPB 02/11/18 20:00 02/16/18 21:00 02/14/18 09:04 NINA ALVARADO Feb 14, 2018 11:01"
[2018-02-14 12:00] VITALS: BP 123/64
--- NOTE | 2018-02-14 15:06 | Diagnostic Imaging Report ---
APPROVED REPORT CPT Code: 55071 Vascular Symptoms Comments: DIZZINESS. CAROTID (BILATERAL) - Imaging reveals no significant plaque within the right and left extracranial carotid arteries. The Doppler spectral flow analysis is within normal limits throughout the extracranial carotid arteries bilaterally. VERTEBRAL- The vertebral arteries are within normal limits.
--- NOTE | 2018-02-14 15:08 | Diagnostic Imaging Report ---
APPROVED REPORT CPT Code: 23803 Present Symptoms Comments: BILATERAL LEGS PAIN. BILATERAL: Imaging reveals a patent deep venous system bilaterally. There is no evidence of thrombus within the femoral, popliteal or tibial segments. The greater saphenous veins are also within normal limits. Doppler indicates normal spontaneous flow within these segments.
[2018-02-14 16:00] VITALS: BP 103/59
--- NOTE | 2018-02-14 17:18 | Pulmonology Progress Note ---
Assessment/Plan Problems: (1) Pneumonia (2) Sepsis (3) Congenital heart disease, adult (4) Down syndrome (5) Mental retardation (6) Anxiety Assessment/Plan ASSESSMENT: The patient is a 67-year-old male with a history of mental retardation and chronic subdural hematomas, recently admitted to [facility] with tracheobronchitis and poor mucociliary clearance, now presenting with dehydration, mild troponin elevation, acute kidney injury, and possible right infrahilar infiltrate. PROBLEM LIST: 1. Respiratory failure 2. Right perihilar infiltrate, healthcare-associated pneumonia. 3. MRSA sepsis and pneumonia 4. Acute kidney injury, likely dehydration. 5. Mild troponin elevation, likely demand ischemia. 6. History of recurrent aspiration pneumonia in the past. 7. Chronic subdural hematoma. 8. Mental retardation. 9. Hypothyroidism. 10. Chronic right bundle-branch block. 11. Acute on chronic CVA 12. Elevated D-dimer with negative Duplex and VQ TREATMENT PLAN: 1. BiPAP PRN and qHS 2. Titrate down FiO2 to keep SaO2 > 90%. 3. RTC and PRN HHN's, CPT 4. Mucinex and PRN Robitussin 5. Abx per ID, F/U Cx's 5. NPO, NGTF's, FRAME CARVER SPINDLE therapy, GI recs --> may need GT 6. Monitor volumes 7. Hep SQ for DVT Px 8. FC Subjective Allergies: Coded Allergies: SULFA (SULFONAMIDE ANTIBIOTICS) (Verified Allergy, Unknown, 09/02/15) Subjective AFVSS, still on VM + cough + congestion + SOB no F/C no CP no distress Objective Last 24 Hour Vital Signs Date Time Temp Pulse Resp B/P (MAP) Pulse Ox O2 Delivery O2 Flow Rate FiO2 02/14/18 16:00 8.0 02/14/18 16:00 97.9 84 21 103/59 (74) 98 97.9 02/14/18 14:05 68 18 99 Venturi Mask 8.0 40 02/14/18 13:53 75 18 99 Venturi Mask 8.0 40 02/14/18 12:00 8.0 02/14/18 12:00 98.1 105 22 123/64 (83) 99 98.1 02/14/18 12:00 70 02/14/18 10:07 73 18 99 Venturi Mask 8.0 40 02/14/18 09:59 72 18 99 Venturi Mask 8.0 40 02/14/18 09:00 72 100/48 02/14/18 09:00 Venturi Mask 02/14/18 08:00 98.4 72 22 100/48 (65) 99 98.4 02/14/18 08:00 8.0 02/14/18 08:00 78 02/14/18 07:30 Venturi Mask 8.0 40 02/14/18 07:30 98 Venturi Mask 8.0 40 02/14/18 05:45 72 18 98 02/14/18 04:00 98.1 58 19 96/58 (71) 99 98.1 02/14/18 04:00 59 02/14/18 04:00 8.0 40 02/14/18 03:04 67 17 98 Full Face 35 02/14/18 01:19 65 18 99 Venturi Mask 8.0 40 02/14/18 01:07 61 16 99 Bi-pap 40 02/14/18 01:07 61 17 99 Full Face 40 02/14/18 00:00 8.0 40 02/14/18 00:00 71 02/14/18 00:00 98.8 60 18 114/52 (72) 100 98.8 02/13/18 23:25 69 17 98 Full Face 40 02/13/18 22:15 72 17 99 Full Face 40 02/13/18 21:00 Venturi Mask 02/13/18 20:35 66 95/44 02/13/18 20:00 69 02/13/18 20:00 8.0 40 02/13/18 20:00 97.7 66 18 95/44 (61) 99 97.7 02/13/18 19:06 72 18 98 Venturi Mask 8.0 40 02/13/18 18:55 Venturi Mask 8.0 40 02/13/18 18:55 68 20 99 Venturi Mask 8.0 40 02/13/18 18:55 99 Venturi Mask 8.0 40 Intake and Output 02/13/18 02/14/18 19:00 07:00 Output Total 300 ml Balance -300 ml Output Urine Total 300 ml # Voids 2 3 General Appearance: no acute distress HEENT: normocephalic, atraumatic, anicteric, mucous membranes moist Respiratory/Chest: chest wall non-tender, rhonchi Cardiovascular: normal peripheral pulses, normal rate, regular rhythm Abdomen: normal bowel sounds, soft, non tender, no organomegaly Extremities: no cyanosis, no clubbing, no edema Current Medications Medications (Trade) Dose Ordered Sig/Eddy Route PRN Reason Start Time Stop Time Status Last Admin Dose Admin Acetaminophen (Tylenol) 650 mg Q6H PRN NG Mild Pain/Temp > 100.5 02/11/18 18:18 03/12/18 18:17 Albuterol/ Ipratropium (Albuterol/ Ipratropium) 3 ml Q4H PRN HHN Shortness of Breath 02/12/18 14:17 02/17/18 14:16 Albuterol/ Ipratropium (Albuterol/ Ipratropium) 3 ml Q6HRT HHN 02/12/18 19:00 02/17/18 18:59 02/14/18 13:53 Aspirin (ASA) 81 mg DAILY NG 02/12/18 09:00 03/14/18 08:59 02/14/18 09:11 Atorvastatin Calcium (Lipitor) 10 mg BEDTIME NG 02/11/18 21:00 03/09/18 20:59 02/13/18 20:35 Calcium Carbonate (Tums) 500 mg THREE TIMES A DAY GT 02/12/18 09:00 03/09/18 08:59 02/14/18 12:45 Chlorhexidine Gluconate (Tesha-Hex 2%) 1 applic DAILY@2000 TOPIC 02/11/18 20:00 03/11/18 19:59 02/13/18 20:34 Docusate Sodium (Colace) 100 mg TWICE A DAY NG 02/12/18 09:00 03/13/18 08:59 02/14/18 09:11 Guaifenesin (Robitussin) 100 mg Q4H PRN NG For Cough 02/13/18 13:45 03/14/18 18:14 Heparin Sodium (Porcine) (Heparin 5000 units/ml) 5,000 units EVERY 8 HOURS SUBQ 02/11/18 22:00 03/09/18 13:59 02/14/18 15:01 Levetiracetam 100 ml @ 400 mls/hr Q12HR IVPB 02/11/18 21:00 03/09/18 08:59 02/14/18 09:11 Levothyroxine Sodium (Synthroid) 125 mcg DAILY IV 02/12/18 09:00 03/09/18 08:59 02/14/18 09:57 Magnesium Hydroxide (Mom) 30 ml HSPRN PRN NG Constipation 02/11/18 21:00 03/09/18 20:59 Metoprolol Tartrate (Lopressor) 5 mg Q4H PRN IVP hr>130 02/11/18 18:19 03/09/18 18:18 Metoprolol Tartrate (Lopressor) 12.5 mg Q12HR NG 02/11/18 21:00 03/09/18 08:59 02/13/18 20:35 Olanzapine (ZyPREXA) 5 mg DAILY@2100 NG 02/11/18 21:00 03/12/18 20:59 02/13/18 20:34 Pantoprazole (Protonix) 40 mg DAILY IVP 02/12/18 09:00 03/09/18 09:20 02/14/18 09:10 Piperacillin Sod/ Tazobactam Sod 3.375 gm/Dextrose 110 ml @ 27.5 mls/hr EVERY 8 HOURS IVPB 02/11/18 22:00 02/16/18 23:00 02/14/18 14:51 Triamcinolone Acetonide (Kenalog 0.025% Oint) 1 applic THREE TIMES A DAY TOPIC 02/14/18 18:00 03/16/18 17:59 Vancomycin HCl (Vanco rx to dose) 1 ea DAILY PRN MISC PER PHARMACY 02/12/18 09:00 03/09/18 07:29 Vancomycin HCl 500 mg/Dextrose 110 ml @ 110 mls/hr Q12H IVPB 02/11/18 20:00 02/16/18 21:00 02/14/18 09:04 Sae Forrest MD Feb 14, 2018 17:18
[2018-02-14] MEDS: Triamcinolone 0.025% oint TOPIC SCH (17:35)
[2018-02-14 20:00] VITALS: BP 117/65
--- NOTE | 2018-02-14 20:01 | Cardiology Progress Note ---
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 pneumonia arf hs of svt chronic subdural hematoma eczema not seem in any respitratory distress even despite sig rhonchi bioethics notation from icu noted atr [facility] echo noted normal lv systolic function bp seems fine is afebril still repeat blood cx neg at 48 hours still no svt remains on bb hemodynamically stable at the moment d/w with dr calderón repeat cbc in am was down trending Subjective ROS Limited/Unobtainable: Yes Subjective rn at bedise suctioing oropharyngeal bloody secretion Objective Last 24 Hour Vital Signs Date Time Temp Pulse Resp B/P (MAP) Pulse Ox O2 Delivery O2 Flow Rate FiO2 02/14/18 19:52 88 22 99 Venturi Mask 8.0 40 02/14/18 19:36 97 Venturi Mask 8.0 40 02/14/18 19:36 74 18 97 Venturi Mask 8.0 40 02/14/18 19:36 Venturi Mask 8.0 40 02/14/18 16:00 8.0 02/14/18 16:00 93 02/14/18 16:00 97.9 84 21 103/59 (74) 98 97.9 02/14/18 14:05 68 18 99 Venturi Mask 8.0 40 02/14/18 13:53 75 18 99 Venturi Mask 8.0 40 02/14/18 12:00 8.0 02/14/18 12:00 98.1 105 22 123/64 (83) 99 98.1 02/14/18 12:00 70 02/14/18 10:07 73 18 99 Venturi Mask 8.0 40 02/14/18 09:59 72 18 99 Venturi Mask 8.0 40 02/14/18 09:00 72 100/48 02/14/18 09:00 Venturi Mask 02/14/18 08:00 98.4 72 22 100/48 (65) 99 98.4 02/14/18 08:00 8.0 02/14/18 08:00 78 02/14/18 07:30 Venturi Mask 8.0 40 02/14/18 07:30 98 Venturi Mask 8.0 40 02/14/18 05:45 72 18 98 02/14/18 04:00 98.1 58 19 96/58 (71) 99 98.1 02/14/18 04:00 59 02/14/18 04:00 8.0 40 02/14/18 03:04 67 17 98 Full Face 35 02/14/18 01:19 65 18 99 Venturi Mask 8.0 40 02/14/18 01:07 61 16 99 Bi-pap 40 02/14/18 01:07 61 17 99 Full Face 40 02/14/18 00:00 8.0 40 02/14/18 00:00 71 02/14/18 00:00 98.8 60 18 114/52 (72) 100 98.8 02/13/18 23:25 69 17 98 Full Face 40 02/13/18 22:15 72 17 99 Full Face 40 02/13/18 21:00 Venturi Mask 02/13/18 20:35 66 95/44 02/13/18 20:00 69 02/13/18 20:00 8.0 40 02/13/18 20:00 97.7 66 18 95/44 (61) 99 97.7 General Appearance: no apparent distress, alert Neck: no JVD Cardiovascular: normal rate Respiratory/Chest: rhonchi - bilaterally Abdomen: normal bowel sounds, non tender, soft Extremities: no swelling Intake and Output 02/13/18 02/14/18 19:00 07:00 Output Total 300 ml Balance -300 ml Output Urine Total 300 ml # Voids 2 3 Amos Sue MD Feb 14, 2018 20:01
--- NOTE | 2018-02-14 20:07 | General Progress Note ---
Assessment/Plan Status: progressing Assessment/Plan ASSESSMENT: 1. Shortness of breath, possibly secondary to pneumonia, possible sepsis. 2. Acute respiratory failure requiring BiPAP. 3. Acute kidney injury. 4. Elevated troponin, possibly from demand ischemia. 5. Developmental delay. 6. Dysphagia. 7. Psoriasis. 8. Acute left cerebellar infarction 9. MRSA bacteremia/Pneumonia/?endocarditis 10. epistaxis PLAN: 1. Continue the patient on BiPAP support prn 2. Monitor vitals and I and O's. 3. advance NGT and start diet in cxr confirmed palcement 4. The patient was started on IV vancomycin and Zosyn. 5. To continue breathing treatment with frequent suctioning p.r.n. 6. Continue correction medications. 7. Monitor troponin. 8. Heparin for DVT prophylaxis. 9. Protonix for GI prophylaxis. 10. Dr. Forrest, Pulmonary consult and Dr. Johnston, ID consult. 11. change aspirin to 81 mg daily 12. fu Echo and carotic us and venous duplex 13 gi consult appreciated, NGT for now repeat swallow eval later when more stable 14. NGT for meds and tube feeding 15. repeat Blood cultures to check for clearance of MRSA conitnue supportive care continue telemetry VQ scan negative for PE monitor labs ENT consult to evaluate for epistaxis, will check am cbc and INR/PTT PICC line placemetn for IV vanco for 20 more days for possible endocarditis dc planning to LTACH when bed available Subjective Date patient seen: Feb 14, 2018 ROS Limited/Unobtainable: Yes Allergies: Coded Allergies: SULFA (SULFONAMIDE ANTIBIOTICS) (Verified Allergy, Unknown, 09/02/15) Objective Last 24 Hour Vital Signs Date Time Temp Pulse Resp B/P (MAP) Pulse Ox O2 Delivery O2 Flow Rate FiO2 02/14/18 19:52 88 22 99 Venturi Mask 8.0 40 02/14/18 19:36 97 Venturi Mask 8.0 40 02/14/18 19:36 74 18 97 Venturi Mask 8.0 40 02/14/18 19:36 Venturi Mask 8.0 40 02/14/18 16:00 8.0 02/14/18 16:00 93 02/14/18 16:00 97.9 84 21 103/59 (74) 98 97.9 02/14/18 14:05 68 18 99 Venturi Mask 8.0 40 02/14/18 13:53 75 18 99 Venturi Mask 8.0 40 02/14/18 12:00 8.0 02/14/18 12:00 98.1 105 22 123/64 (83) 99 98.1 02/14/18 12:00 70 02/14/18 10:07 73 18 99 Venturi Mask 8.0 40 02/14/18 09:59 72 18 99 Venturi Mask 8.0 40 02/14/18 09:00 72 100/48 02/14/18 09:00 Venturi Mask 02/14/18 08:00 98.4 72 22 100/48 (65) 99 98.4 02/14/18 08:00 8.0 02/14/18 08:00 78 02/14/18 07:30 Venturi Mask 8.0 40 02/14/18 07:30 98 Venturi Mask 8.0 40 02/14/18 05:45 72 18 98 02/14/18 04:00 98.1 58 19 96/58 (71) 99 98.1 02/14/18 04:00 59 02/14/18 04:00 8.0 40 02/14/18 03:04 67 17 98 Full Face 35 02/14/18 01:19 65 18 99 Venturi Mask 8.0 40 02/14/18 01:07 61 16 99 Bi-pap 40 02/14/18 01:07 61 17 99 Full Face 40 02/14/18 00:00 8.0 40 02/14/18 00:00 71 02/14/18 00:00 98.8 60 18 114/52 (72) 100 98.8 02/13/18 23:25 69 17 98 Full Face 40 02/13/18 22:15 72 17 99 Full Face 40 02/13/18 21:00 Venturi Mask 02/13/18 20:35 66 95/44 Intake and Output 02/13/18 02/14/18 19:00 07:00 Output Total 300 ml Balance -300 ml Output Urine Total 300 ml # Voids 2 3 Height (Feet): 5 Height (Inches): 2.00 Weight (Pounds): 112 General Appearance: no apparent distress, alert EENT: PERRL/EOMI Neck: non-tender, supple Cardiovascular: normal rate, regular rhythm, no gallop/murmur, no JVD Respiratory/Chest: rhonchi - bilaterally Abdomen: non tender, soft, no mass Extremities: non-tender, normal inspection, no calf tenderness Edema: no edema noted Arm (L), no edema noted Arm (R), no edema noted Leg (L), no edema noted Leg (R), no edema noted Pedal (L), no edema noted Pedal (R), no edema noted Generalized Neurologic: alert Skin: rash Lymphatic: normal anterior cervical (L), normal anterior cervical (R), normal posterior cervical (L), normal posterior cervical (R), normal submandibular (L) , normal submandibular (R), normal supraclavicular (L), normal supraclavicular ( R), normal axillary (L), normal axillary (R), normal inguinal (L), normal inguinal (R), normal other Diann Silver MD Feb 14, 2018 20:07
--- NOTE | 2018-02-14 21:00 | General Progress Note ---
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 - pneumonitis - failed swallow - h/o CHF Recommendations - NGT - Abx - Continue TF - Will need PEG placement - will d/w attending Subjective Allergies: Coded Allergies: SULFA (SULFONAMIDE ANTIBIOTICS) (Verified Allergy, Unknown, 09/02/15) Subjective Above noted on NGT feeds ST noted on Abx for PNA non interactive Objective Last 24 Hour Vital Signs Date Time Temp Pulse Resp B/P (MAP) Pulse Ox O2 Delivery O2 Flow Rate FiO2 02/14/18 19:52 88 22 99 Venturi Mask 8.0 40 02/14/18 19:36 97 Venturi Mask 8.0 40 02/14/18 19:36 74 18 97 Venturi Mask 8.0 40 02/14/18 19:36 Venturi Mask 8.0 40 02/14/18 16:00 8.0 02/14/18 16:00 93 02/14/18 16:00 97.9 84 21 103/59 (74) 98 97.9 02/14/18 14:05 68 18 99 Venturi Mask 8.0 40 02/14/18 13:53 75 18 99 Venturi Mask 8.0 40 02/14/18 12:00 8.0 02/14/18 12:00 98.1 105 22 123/64 (83) 99 98.1 02/14/18 12:00 70 02/14/18 10:07 73 18 99 Venturi Mask 8.0 40 02/14/18 09:59 72 18 99 Venturi Mask 8.0 40 02/14/18 09:00 72 100/48 02/14/18 09:00 Venturi Mask 02/14/18 08:00 98.4 72 22 100/48 (65) 99 98.4 02/14/18 08:00 8.0 02/14/18 08:00 78 02/14/18 07:30 Venturi Mask 8.0 40 02/14/18 07:30 98 Venturi Mask 8.0 40 02/14/18 05:45 72 18 98 02/14/18 04:00 98.1 58 19 96/58 (71) 99 98.1 02/14/18 04:00 59 02/14/18 04:00 8.0 40 02/14/18 03:04 67 17 98 Full Face 35 02/14/18 01:19 65 18 99 Venturi Mask 8.0 40 02/14/18 01:07 61 16 99 Bi-pap 40 02/14/18 01:07 61 17 99 Full Face 40 02/14/18 00:00 8.0 40 02/14/18 00:00 71 02/14/18 00:00 98.8 60 18 114/52 (72) 100 98.8 02/13/18 23:25 69 17 98 Full Face 40 02/13/18 22:15 72 17 99 Full Face 40 02/13/18 21:00 Venturi Mask Intake and Output 02/13/18 02/14/18 19:00 07:00 Output Total 300 ml Balance -300 ml Output Urine Total 300 ml # Voids 2 3 Height (Feet): 5 Height (Inches): 2.00 Weight (Pounds): 112 Objective WDWN WM NCAT supple Chest b/l Ronchi RR abd soft ND no edema OBS Michael Estevez MD Feb 14, 2018 21:00
[2018-02-14] MEDS: Dyna-Hex 2% Top Sol 2oz TOPIC SCH (21:03)
[2018-02-15] VITALS: BP 114/73
[2018-02-15] MEDS: Albuterol/Ipratropium 3ml neb HHN SCH ×4 (01:38→19:50)
[2018-02-15 04:00] VITALS: BP 111/77
[2018-02-15] MEDS: Piperacillin/Tazobactam 3.375 GM in D5W 110 ML IVPB SCH ×3 (05:48→22:15)
[2018-02-15] MEDS: Heparin 5000 units/ml inj SUBQ SCH ×3 (05:50→22:00)
[2018-02-15 07:31] LABS: EOSINOPHILS % (AUTO) 1.7 % (0.0-3.0); HEMATOCRIT 37.1 % (42.0-52.0); HEMOGLOBIN 12.3 G/DL (14.2-18.0); LYMPHOCYTES % (AUTO) 17.8 % (20.0-45.0); MEAN CORPUSCULAR VOLUME 97 FL (80-99); MONOCYTES % (AUTO) 7.9 % (1.0-10.0); NEUTROPHILS % (AUTO) 71.5 % (45.0-75.0); PLATELET COUNT 199 K/UL (150-450); RED BLOOD COUNT 3.81 M/UL (4.70-6.10); WHITE BLOOD COUNT 8.2 K/UL (4.8-10.8)
[2018-02-15 07:33] LABS: INR 1.1 (0.9-1.1)
[2018-02-15 08:00] VITALS: BP 99/66
[2018-02-15 08:32] LABS: ANION GAP 8 mmol/L (5-15); BLOOD UREA NITROGEN 11 mg/dL (7-18); CALCIUM 8.8 MG/DL (8.5-10.1); CARBON DIOXIDE 30 MMOL/L (21-32); CHLORIDE 102 MMOL/L (98-107); POTASSIUM 3.9 MMOL/L (3.5-5.1); SODIUM 140 MMOL/L (136-145)
[2018-02-15] MEDS: Metoprolol Tartrate 12.5mg TAB NG SCH ×2 (09:00→20:58)
[2018-02-15] MEDS: levETIRAcetam 1,000mg/NS100ml 100 ML IVPB SCH ×2 (09:35→20:55)
[2018-02-15] MEDS: Vancomycin 500 MG in D5W 110 ML IVPB SCH ×2 (09:36→20:05)
[2018-02-15] MEDS: Tums 500mg GT SCH ×3 (09:36→18:04)
[2018-02-15] MEDS: Triamcinolone 0.025% oint TOPIC SCH ×3 (09:36→18:04)
[2018-02-15] MEDS: Pantoprazole Inj IVP SCH (09:36)
[2018-02-15] MEDS: Docusate 100mg/10ml Liq NG SCH ×2 (09:36→18:04)
[2018-02-15] MEDS: Aspirin Baby 81mg NG SCH (09:36)
[2018-02-15 12:00] VITALS: BP 94/64
--- NOTE | 2018-02-15 12:35 | Infectious Diseases Prog Note ---
Assessment/Plan Assessment/Plan A: 1. pneumonia with MRSA & E. coli 2. respiratory failure 3. Acute lacunar CVA 4. mental retardation 5. staph aureus sepsis r/o endocarditis P 1. continue vancomycin iv, X 19 days 2. Continue Zosyn X 1 day 3. Repeat blood cultures are negative Subjective ROS Limited/Unobtainable: Yes Allergies: Coded Allergies: SULFA (SULFONAMIDE ANTIBIOTICS) (Verified Allergy, Unknown, 09/02/15) Objective Vital Signs Last 24 Hour Vital Signs Date Time Temp Pulse Resp B/P (MAP) Pulse Ox O2 Delivery O2 Flow Rate FiO2 02/15/18 09:00 Venturi Mask 02/15/18 08:00 85 02/15/18 08:00 98.4 77 17 99/66 (77) 97 98.4 02/15/18 08:00 8.0 40 02/15/18 07:31 85 20 99 Venturi Mask 8.0 40 02/15/18 07:21 83 18 98 Venturi Mask 8.0 40 02/15/18 07:21 98 Venturi Mask 8.0 40 02/15/18 07:21 Venturi Mask 8.0 40 02/15/18 05:25 83 21 98 Full Face 35 02/15/18 04:00 8.0 40 02/15/18 04:00 77 02/15/18 04:00 98.2 77 22 111/77 (88) 99 98.2 02/15/18 03:25 78 18 98 Full Face 35 02/15/18 01:50 91 23 99 Bi-pap 40 02/15/18 01:38 80 18 99 Bi-pap 40 02/15/18 01:38 80 18 99 Full Face 35 02/15/18 00:00 74 02/15/18 00:00 8.0 02/15/18 00:00 98.3 75 19 114/73 (87) 97 98.3 02/14/18 23:45 67 20 99 Full Face 35 02/14/18 21:04 94 117/65 02/14/18 21:00 Venturi Mask 02/14/18 20:00 8.0 02/14/18 20:00 98.5 94 21 117/65 (82) 98 98.5 02/14/18 20:00 83 02/14/18 19:52 88 22 99 Venturi Mask 8.0 40 02/14/18 19:36 97 Venturi Mask 8.0 40 02/14/18 19:36 74 18 97 Venturi Mask 8.0 40 02/14/18 19:36 Venturi Mask 8.0 40 02/14/18 16:00 8.0 02/14/18 16:00 93 02/14/18 16:00 97.9 84 21 103/59 (74) 98 97.9 02/14/18 14:05 68 18 99 Venturi Mask 8.0 40 02/14/18 13:53 75 18 99 Venturi Mask 8.0 40 Height (Feet): 5 Height (Inches): 2.00 Weight (Pounds): 112 General Appearance: no acute distress HEENT: other Respiratory/Chest: other Cardiovascular: normal rate Abdomen: soft, non tender, other - GT feeding Extremities: no edema 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: aphasia, other - opens eyes Microbiology Date/Time Source Procedure Growth Status 02/13/18 05:00 Blood Blood Culture - Preliminary NO GROWTH AFTER 48 HOURS Resulted 02/13/18 05:00 Blood Blood Culture - Preliminary NO GROWTH AFTER 48 HOURS Resulted Laboratory Tests Test 02/15/18 07:00 White Blood Count 8.2 K/UL (4.8-10.8) Red Blood Count 3.81 M/UL (4.70-6.10) L Hemoglobin 12.3 G/DL (14.2-18.0) L Hematocrit 37.1 % (42.0-52.0) L Mean Corpuscular Volume 97 FL (80-99) Mean Corpuscular Hemoglobin 32.2 PG (27.0-31.0) H Mean Corpuscular Hemoglobin Concent 33.2 G/DL (32.0-36.0) Red Cell Distribution Width 14.0 % (11.6-14.8) Platelet Count 199 K/UL (150-450) Mean Platelet Volume 8.1 FL (6.5-10.1) Neutrophils (%) (Auto) 71.5 % (45.0-75.0) Lymphocytes (%) (Auto) 17.8 % (20.0-45.0) L Monocytes (%) (Auto) 7.9 % (1.0-10.0) Eosinophils (%) (Auto) 1.7 % (0.0-3.0) Basophils (%) (Auto) 1.0 % (0.0-2.0) Prothrombin Time 11.8 SEC (9.30-11.50) H Prothromb Time International Ratio 1.1 (0.9-1.1) Activated Partial Thromboplast Time 41 SEC (23-33) H Sodium Level 140 MMOL/L (136-145) Potassium Level 3.9 MMOL/L (3.5-5.1) Chloride Level 102 MMOL/L (98-107) Carbon Dioxide Level 30 MMOL/L (21-32) Anion Gap 8 mmol/L (5-15) Blood Urea Nitrogen 11 mg/dL (7-18) Creatinine 1.0 MG/DL (0.55-1.30) Estimat Glomerular Filtration Rate > 60 mL/min (>60) Glucose Level 99 MG/DL (74-106) Calcium Level 8.8 MG/DL (8.5-10.1) Current Medications Medications (Trade) Dose Ordered Sig/Eddy Route PRN Reason Start Time Stop Time Status Last Admin Dose Admin Acetaminophen (Tylenol) 650 mg Q6H PRN NG Mild Pain/Temp > 100.5 02/11/18 18:18 03/12/18 18:17 Albuterol/ Ipratropium (Albuterol/ Ipratropium) 3 ml Q4H PRN HHN Shortness of Breath 02/12/18 14:17 02/17/18 14:16 Albuterol/ Ipratropium (Albuterol/ Ipratropium) 3 ml Q6HRT HHN 02/12/18 19:00 02/17/18 18:59 02/15/18 07:21 Aspirin (ASA) 81 mg DAILY NG 02/12/18 09:00 03/14/18 08:59 02/15/18 09:36 Atorvastatin Calcium (Lipitor) 10 mg BEDTIME NG 02/11/18 21:00 03/09/18 20:59 02/14/18 21:04 Calcium Carbonate (Tums) 500 mg THREE TIMES A DAY GT 02/12/18 09:00 03/09/18 08:59 02/15/18 09:36 Chlorhexidine Gluconate (Tesha-Hex 2%) 1 applic DAILY@1999 TOPIC 02/11/18 20:00 03/11/18 19:59 02/14/18 21:03 Docusate Sodium (Colace) 100 mg TWICE A DAY NG 02/12/18 09:00 03/13/18 08:59 02/15/18 09:36 Guaifenesin (Robitussin) 100 mg Q4H PRN NG For Cough 02/13/18 13:45 03/14/18 18:14 Heparin Sodium (Porcine) (Heparin 5000 units/ml) 5,000 units EVERY 8 HOURS SUBQ 02/11/18 22:00 03/09/18 13:59 02/15/18 05:50 Levetiracetam 100 ml @ 400 mls/hr Q12HR IVPB 02/11/18 21:00 03/09/18 08:59 02/15/18 09:35 Levothyroxine Sodium (Synthroid) 125 mcg DAILY IV 02/12/18 09:00 03/09/18 08:59 02/15/18 09:36 Magnesium Hydroxide (Mom) 30 ml HSPRN PRN NG Constipation 02/11/18 21:00 03/09/18 20:59 Metoprolol Tartrate (Lopressor) 5 mg Q4H PRN IVP hr>130 02/11/18 18:19 03/09/18 18:18 Metoprolol Tartrate (Lopressor) 12.5 mg Q12HR NG 02/11/18 21:00 03/09/18 08:59 02/14/18 21:04 Olanzapine (ZyPREXA) 5 mg DAILY@2100 NG 02/11/18 21:00 03/12/18 20:59 02/14/18 21:03 Pantoprazole (Protonix) 40 mg DAILY IVP 02/12/18 09:00 03/09/18 09:20 02/15/18 09:36 Piperacillin Sod/ Tazobactam Sod 3.375 gm/Dextrose 110 ml @ 27.5 mls/hr EVERY 8 HOURS IVPB 02/11/18 22:00 02/16/18 23:00 02/15/18 05:48 Triamcinolone Acetonide (Kenalog 0.025% Oint) 1 applic THREE TIMES A DAY TOPIC 02/14/18 18:00 03/16/18 17:59 02/15/18 09:36 Vancomycin HCl (Vanco rx to dose) 1 ea DAILY PRN MISC PER PHARMACY 02/12/18 09:00 03/09/18 07:29 Vancomycin HCl 500 mg/Dextrose 110 ml @ 110 mls/hr Q12H IVPB 02/11/18 20:00 03/06/18 19:59 02/15/18 09:36 Wilbur Escudero MD Feb 15, 2018 12:35
--- NOTE | 2018-02-15 13:14 | General Progress Note ---
Assessment/Plan Status: progressing Assessment/Plan ASSESSMENT: 1. Shortness of breath, possibly secondary to pneumonia, possible sepsis. 2. Acute respiratory failure requiring BiPAP. 3. Acute kidney injury. 4. Elevated troponin, possibly from demand ischemia. 5. Developmental delay. 6. Dysphagia. 7. Psoriasis. 8. Acute left cerebellar infarction 9. MRSA bacteremia/Pneumonia/?endocarditis 10. epistaxis PLAN: 1. Continue the patient on BiPAP support prn 2. Monitor vitals and I and O's. 3. advance NGT and start diet in cxr confirmed palcement 4. The patient was started on IV vancomycin and Zosyn. 5. To continue breathing treatment with frequent suctioning p.r.n. 6. Continue intermediate medications. 7. Monitor troponin. 8. Heparin for DVT prophylaxis. 9. Protonix for GI prophylaxis. 10. Dr. Forrest, Pulmonary consult and Dr. Johnston, ID consult. 11. change aspirin to 81 mg daily 12. fu Echo and carotic us and venous duplex 13 gi consult appreciated, NGT for now repeat swallow eval later when more stable 14. NGT for meds and tube feeding 15. repeat Blood cultures to check for clearance of MRSA conitnue supportive care continue telemetry VQ scan negative for PE monitor labs ENT consult to evaluate for epistaxis, will check am cbc and INR/PTT PICC line placemetn for IV vanco for 20 more days for possible endocarditis may need PEG will discuss with Dr. Buchanan I spoke with Dr. Mckenna from [facility] who agrees to PEG for consent can call [phone] Nini [place] director or for Emergency [phone] Subjective Date patient seen: Feb 15, 2018 ROS Limited/Unobtainable: Yes Allergies: Coded Allergies: SULFA (SULFONAMIDE ANTIBIOTICS) (Verified Allergy, Unknown, 09/02/15) Objective Last 24 Hour Vital Signs Date Time Temp Pulse Resp B/P (MAP) Pulse Ox O2 Delivery O2 Flow Rate FiO2 02/15/18 12:59 81 18 99 Venturi Mask 8.0 40 02/15/18 12:50 80 18 98 Venturi Mask 8.0 40 02/15/18 12:00 8.0 40 02/15/18 12:00 98.0 70 18 94/64 (74) 100 98.0 02/15/18 12:00 88 02/15/18 09:00 Venturi Mask 02/15/18 08:00 85 02/15/18 08:00 98.4 77 17 99/66 (77) 97 98.4 02/15/18 08:00 8.0 40 02/15/18 07:31 85 20 99 Venturi Mask 8.0 40 02/15/18 07:21 83 18 98 Venturi Mask 8.0 40 02/15/18 07:21 98 Venturi Mask 8.0 40 02/15/18 07:21 Venturi Mask 8.0 40 02/15/18 05:25 83 21 98 Full Face 35 02/15/18 04:00 8.0 40 02/15/18 04:00 77 02/15/18 04:00 98.2 77 22 111/77 (88) 99 98.2 02/15/18 03:25 78 18 98 Full Face 35 02/15/18 01:50 91 23 99 Bi-pap 40 02/15/18 01:38 80 18 99 Bi-pap 40 02/15/18 01:38 80 18 99 Full Face 35 02/15/18 00:00 74 02/15/18 00:00 8.0 02/15/18 00:00 98.3 75 19 114/73 (87) 97 98.3 02/14/18 23:45 67 20 99 Full Face 35 02/14/18 21:04 94 117/65 02/14/18 21:00 Venturi Mask 02/14/18 20:00 8.0 02/14/18 20:00 98.5 94 21 117/65 (82) 98 98.5 02/14/18 20:00 83 02/14/18 19:52 88 22 99 Venturi Mask 8.0 40 02/14/18 19:36 97 Venturi Mask 8.0 40 02/14/18 19:36 74 18 97 Venturi Mask 8.0 40 02/14/18 19:36 Venturi Mask 8.0 40 02/14/18 16:00 8.0 02/14/18 16:00 93 02/14/18 16:00 97.9 84 21 103/59 (74) 98 97.9 02/14/18 14:05 68 18 99 Venturi Mask 8.0 40 02/14/18 13:53 75 18 99 Venturi Mask 8.0 40 Intake and Output 02/14/18 02/15/18 19:00 07:00 Output Total 500 ml 1100 ml Balance -500 ml -1100 ml Output Urine Total 500 ml 1100 ml # Voids 4 Laboratory Tests 02/15/18 07:00: White Blood Count 8.2, Red Blood Count 3.81L, Hemoglobin 12.3L, Hematocrit 37.1L , Mean Corpuscular Volume 97, Mean Corpuscular Hemoglobin 32.2H, Mean Corpuscular Hemoglobin Concent 33.2, Red Cell Distribution Width 14.0, Platelet Count 199, Mean Platelet Volume 8.1, Neutrophils (%) (Auto) 71.5, Lymphocytes (% ) (Auto) 17.8L, Monocytes (%) (Auto) 7.9, Eosinophils (%) (Auto) 1.7, Basophils (%) (Auto) 1.0, Prothrombin Time 11.8H, Prothromb Time International Ratio 1.1, Activated Partial Thromboplast Time 41H, Sodium Level 140, Potassium Level 3.9, Chloride Level 102, Carbon Dioxide Level 30, Anion Gap 8, Blood Urea Nitrogen 11 , Creatinine 1.0, Estimat Glomerular Filtration Rate > 60, Glucose Level 99, Calcium Level 8.8 Height (Feet): 5 Height (Inches): 2.00 Weight (Pounds): 112 General Appearance: no apparent distress, alert EENT: PERRL/EOMI, pharynx normal Neck: non-tender, supple Cardiovascular: normal rate, regular rhythm, no gallop/murmur, no JVD Respiratory/Chest: rhonchi - bilaterally Abdomen: non tender, soft, no mass Extremities: non-tender, normal inspection, no calf tenderness Edema: no edema noted Arm (L), no edema noted Arm (R), no edema noted Leg (L), no edema noted Leg (R), no edema noted Pedal (L), no edema noted Pedal (R), no edema noted Generalized Neurologic: alert Skin: rash Lymphatic: normal anterior cervical (L), normal anterior cervical (R), normal posterior cervical (L), normal posterior cervical (R), normal submandibular (L) , normal submandibular (R), normal supraclavicular (L), normal supraclavicular ( R), normal axillary (L), normal axillary (R), normal inguinal (L), normal inguinal (R), normal other Diann Silver MD Feb 15, 2018 13:14
[2018-02-15 16:00] VITALS: BP 98/67
--- NOTE | 2018-02-15 16:30 | Pulmonology Progress Note ---
Assessment/Plan Problems: (1) Pneumonia (2) Sepsis (3) Congenital heart disease, adult (4) Down syndrome (5) Mental retardation (6) Anxiety Assessment/Plan ASSESSMENT: The patient is a 67-year-old male with a history of mental retardation and chronic subdural hematomas, recently admitted to [facility] with tracheobronchitis and poor mucociliary clearance, now presenting with dehydration, mild troponin elevation, acute kidney injury, and possible right infrahilar infiltrate. PROBLEM LIST: 1. Respiratory failure 2. Right perihilar infiltrate, healthcare-associated pneumonia. 3. MRSA sepsis and pneumonia 4. Acute kidney injury, likely dehydration. 5. Mild troponin elevation, likely demand ischemia. 6. History of recurrent aspiration pneumonia in the past. 7. Chronic subdural hematoma. 8. Mental retardation. 9. Hypothyroidism. 10. Chronic right bundle-branch block. 11. Acute on chronic CVA 12. Elevated D-dimer with negative Duplex and VQ TREATMENT PLAN: 1. CXR 2. BiPAP PRN and qHS 3. Titrate down FiO2 to keep SaO2 > 90%. 4. RTC and PRN HHN's, CPT 5. Mucinex and PRN Robitussin 6. Abx per ID, F/U Cx's 7. NPO, NGTF's, [employer] therapy, GI recs --> WILL NEED A PEG 8. Monitor volumes 9. Hep SQ for DVT Px 10. FC Subjective Allergies: Coded Allergies: SULFA (SULFONAMIDE ANTIBIOTICS) (Verified Allergy, Unknown, 09/02/15) Subjective AFVSS, still on VM + cough + congestion + SOB no F/C no CP no distress Objective Last 24 Hour Vital Signs Date Time Temp Pulse Resp B/P (MAP) Pulse Ox O2 Delivery O2 Flow Rate FiO2 02/15/18 12:59 81 18 99 Venturi Mask 8.0 40 02/15/18 12:50 80 18 98 Venturi Mask 8.0 40 02/15/18 12:00 8.0 40 02/15/18 12:00 98.0 70 18 94/64 (74) 100 98.0 02/15/18 12:00 88 02/15/18 09:00 Venturi Mask 02/15/18 08:00 85 02/15/18 08:00 98.4 77 17 99/66 (77) 97 98.4 02/15/18 08:00 8.0 40 02/15/18 07:31 85 20 99 Venturi Mask 8.0 40 02/15/18 07:21 83 18 98 Venturi Mask 8.0 40 02/15/18 07:21 98 Venturi Mask 8.0 40 02/15/18 07:21 Venturi Mask 8.0 40 02/15/18 05:25 83 21 98 Full Face 35 02/15/18 04:00 8.0 40 02/15/18 04:00 77 02/15/18 04:00 98.2 77 22 111/77 (88) 99 98.2 02/15/18 03:25 78 18 98 Full Face 35 02/15/18 01:50 91 23 99 Bi-pap 40 02/15/18 01:38 80 18 99 Bi-pap 40 02/15/18 01:38 80 18 99 Full Face 35 02/15/18 00:00 74 02/15/18 00:00 8.0 02/15/18 00:00 98.3 75 19 114/73 (87) 97 98.3 02/14/18 23:45 67 20 99 Full Face 35 02/14/18 21:04 94 117/65 02/14/18 21:00 Venturi Mask 02/14/18 20:00 8.0 02/14/18 20:00 98.5 94 21 117/65 (82) 98 98.5 02/14/18 20:00 83 02/14/18 19:52 88 22 99 Venturi Mask 8.0 40 02/14/18 19:36 97 Venturi Mask 8.0 40 02/14/18 19:36 74 18 97 Venturi Mask 8.0 40 02/14/18 19:36 Venturi Mask 8.0 40 Intake and Output 02/14/18 02/15/18 19:00 07:00 Output Total 500 ml 1100 ml Balance -500 ml -1100 ml Output Urine Total 500 ml 1100 ml # Voids 4 General Appearance: cachetic HEENT: normocephalic, atraumatic, anicteric, mucous membranes moist Respiratory/Chest: chest wall non-tender, lungs clear, rhonchi Cardiovascular: normal peripheral pulses, normal rate, regular rhythm Abdomen: normal bowel sounds, soft, non tender, no organomegaly, non distended , no mass Extremities: no cyanosis, no clubbing, no edema Microbiology Date/Time Source Procedure Growth Status 02/13/18 05:00 Blood Blood Culture - Preliminary NO GROWTH AFTER 48 HOURS Resulted 02/13/18 05:00 Blood Blood Culture - Preliminary NO GROWTH AFTER 48 HOURS Resulted Laboratory Tests 02/15/18 07:00: White Blood Count 8.2, Red Blood Count 3.81L, Hemoglobin 12.3L, Hematocrit 37.1L , Mean Corpuscular Volume 97, Mean Corpuscular Hemoglobin 32.2H, Mean Corpuscular Hemoglobin Concent 33.2, Red Cell Distribution Width 14.0, Platelet Count 199, Mean Platelet Volume 8.1, Neutrophils (%) (Auto) 71.5, Lymphocytes (% ) (Auto) 17.8L, Monocytes (%) (Auto) 7.9, Eosinophils (%) (Auto) 1.7, Basophils (%) (Auto) 1.0, Prothrombin Time 11.8H, Prothromb Time International Ratio 1.1, Activated Partial Thromboplast Time 41H, Sodium Level 140, Potassium Level 3.9, Chloride Level 102, Carbon Dioxide Level 30, Anion Gap 8, Blood Urea Nitrogen 11 , Creatinine 1.0, Estimat Glomerular Filtration Rate > 60, Glucose Level 99, Calcium Level 8.8 Current Medications Medications (Trade) Dose Ordered Sig/Eddy Route PRN Reason Start Time Stop Time Status Last Admin Dose Admin Acetaminophen (Tylenol) 650 mg Q6H PRN NG Mild Pain/Temp > 100.5 02/11/18 18:18 03/12/18 18:17 Albuterol/ Ipratropium (Albuterol/ Ipratropium) 3 ml Q4H PRN HHN Shortness of Breath 02/12/18 14:17 02/17/18 14:16 Albuterol/ Ipratropium (Albuterol/ Ipratropium) 3 ml Q6HRT HHN 02/12/18 19:00 02/17/18 18:59 02/15/18 12:50 Aspirin (ASA) 81 mg DAILY NG 02/12/18 09:00 03/14/18 08:59 02/15/18 09:36 Atorvastatin Calcium (Lipitor) 10 mg BEDTIME NG 02/11/18 21:00 03/09/18 20:59 02/14/18 21:04 Calcium Carbonate (Tums) 500 mg THREE TIMES A DAY GT 02/12/18 09:00 03/09/18 08:59 02/15/18 14:03 Chlorhexidine Gluconate (Tesha-Hex 2%) 1 applic DAILY@2000 TOPIC 02/11/18 20:00 03/11/18 19:59 02/14/18 21:03 Docusate Sodium (Colace) 100 mg TWICE A DAY NG 02/12/18 09:00 03/13/18 08:59 02/15/18 09:36 Guaifenesin (Robitussin) 100 mg Q4H PRN NG For Cough 02/13/18 13:45 03/14/18 18:14 Heparin Sodium (Porcine) (Heparin 5000 units/ml) 5,000 units EVERY 8 HOURS SUBQ 02/11/18 22:00 03/09/18 13:59 02/15/18 14:05 Levetiracetam 100 ml @ 400 mls/hr Q12HR IVPB 02/11/18 21:00 03/09/18 08:59 02/15/18 09:35 Levothyroxine Sodium (Synthroid) 125 mcg DAILY IV 02/12/18 09:00 03/09/18 08:59 02/15/18 09:36 Magnesium Hydroxide (Mom) 30 ml HSPRN PRN NG Constipation 02/11/18 21:00 03/09/18 20:59 Metoprolol Tartrate (Lopressor) 5 mg Q4H PRN IVP hr>130 02/11/18 18:19 03/09/18 18:18 Metoprolol Tartrate (Lopressor) 12.5 mg Q12HR NG 02/11/18 21:00 03/09/18 08:59 02/14/18 21:04 Olanzapine (ZyPREXA) 5 mg DAILY@2100 NG 02/11/18 21:00 03/12/18 20:59 02/14/18 21:03 Pantoprazole (Protonix) 40 mg DAILY IVP 02/12/18 09:00 03/09/18 09:20 02/15/18 09:36 Piperacillin Sod/ Tazobactam Sod 3.375 gm/Dextrose 110 ml @ 27.5 mls/hr EVERY 8 HOURS IVPB 02/11/18 22:00 02/16/18 23:00 02/15/18 14:03 Triamcinolone Acetonide (Kenalog 0.025% Oint) 1 applic THREE TIMES A DAY TOPIC 02/14/18 18:00 03/16/18 17:59 02/15/18 14:03 Vancomycin HCl (Vanco rx to dose) 1 ea DAILY PRN MISC PER PHARMACY 02/12/18 09:00 03/09/18 07:29 Vancomycin HCl 500 mg/Dextrose 110 ml @ 110 mls/hr Q12H IVPB 02/11/18 20:00 03/06/18 19:59 02/15/18 09:36 Sae Forrest MD Feb 15, 2018 16:30
[2018-02-15] MEDS ORDERED: Tubing IV Secondary IV ONE (16:53)
[2018-02-15] MEDS ORDERED: NS 275ml ONE (16:53)
[2018-02-15] MEDS ORDERED: Sterile Water Irrig 1000ml IRRIG ONE (16:53)
--- NOTE | 2018-02-15 17:00 | Cardiology Progress Note ---
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 pneumonia arf hs of svt chronic subdural hematoma eczema not seem in any respitratory distress even despite sig rhonchi bioethics notation from icu noted atr cedars echo noted normal lv systolic function bp seems fine is afebril still repeat blood cx neg at 48 adn 72 hours still no svt remains on bb hemodynamically stable at the moment wbc min up sig bloody nsaopharyngeal secretion iv abx Subjective ROS Limited/Unobtainable: Yes Subjective still with oropharyngeal bloody secretion Objective Last 24 Hour Vital Signs Date Time Temp Pulse Resp B/P (MAP) Pulse Ox O2 Delivery O2 Flow Rate FiO2 02/15/18 16:00 8.0 40 02/15/18 16:00 98.1 63 18 98/67 (77) 100 98.1 02/15/18 12:59 81 18 99 Venturi Mask 8.0 40 02/15/18 12:50 80 18 98 Venturi Mask 8.0 40 02/15/18 12:00 8.0 40 02/15/18 12:00 98.0 70 18 94/64 (74) 100 98.0 02/15/18 12:00 88 02/15/18 09:00 Venturi Mask 02/15/18 08:00 85 02/15/18 08:00 98.4 77 17 99/66 (77) 97 98.4 02/15/18 08:00 8.0 40 02/15/18 07:31 85 20 99 Venturi Mask 8.0 40 02/15/18 07:21 83 18 98 Venturi Mask 8.0 40 02/15/18 07:21 98 Venturi Mask 8.0 40 02/15/18 07:21 Venturi Mask 8.0 40 02/15/18 05:25 83 21 98 Full Face 35 02/15/18 04:00 8.0 40 02/15/18 04:00 77 02/15/18 04:00 98.2 77 22 111/77 (88) 99 98.2 02/15/18 03:25 78 18 98 Full Face 35 02/15/18 01:50 91 23 99 Bi-pap 40 02/15/18 01:38 80 18 99 Bi-pap 40 02/15/18 01:38 80 18 99 Full Face 35 02/15/18 00:00 74 02/15/18 00:00 8.0 02/15/18 00:00 98.3 75 19 114/73 (87) 97 98.3 02/14/18 23:45 67 20 99 Full Face 35 02/14/18 21:04 94 117/65 02/14/18 21:00 Venturi Mask 02/14/18 20:00 8.0 02/14/18 20:00 98.5 94 21 117/65 (82) 98 98.5 02/14/18 20:00 83 02/14/18 19:52 88 22 99 Venturi Mask 8.0 40 02/14/18 19:36 97 Venturi Mask 8.0 40 02/14/18 19:36 74 18 97 Venturi Mask 8.0 40 02/14/18 19:36 Venturi Mask 8.0 40 General Appearance: no apparent distress, alert Neck: supple, other - upper airwasy noises Cardiovascular: normal rate Respiratory/Chest: rhonchi - bilaterally Abdomen: normal bowel sounds, non tender, soft Extremities: no swelling Intake and Output 02/14/18 02/15/18 19:00 07:00 Output Total 500 ml 1100 ml Balance -500 ml -1100 ml Output Urine Total 500 ml 1100 ml # Voids 4 Laboratory Tests Test 02/15/18 07:00 White Blood Count 8.2 K/UL (4.8-10.8) Red Blood Count 3.81 M/UL (4.70-6.10) L Hemoglobin 12.3 G/DL (14.2-18.0) L Hematocrit 37.1 % (42.0-52.0) L Mean Corpuscular Volume 97 FL (80-99) Mean Corpuscular Hemoglobin 32.2 PG (27.0-31.0) H Mean Corpuscular Hemoglobin Concent 33.2 G/DL (32.0-36.0) Red Cell Distribution Width 14.0 % (11.6-14.8) Platelet Count 199 K/UL (150-450) Mean Platelet Volume 8.1 FL (6.5-10.1) Neutrophils (%) (Auto) 71.5 % (45.0-75.0) Lymphocytes (%) (Auto) 17.8 % (20.0-45.0) L Monocytes (%) (Auto) 7.9 % (1.0-10.0) Eosinophils (%) (Auto) 1.7 % (0.0-3.0) Basophils (%) (Auto) 1.0 % (0.0-2.0) Prothrombin Time 11.8 SEC (9.30-11.50) H Prothromb Time International Ratio 1.1 (0.9-1.1) Activated Partial Thromboplast Time 41 SEC (23-33) H Sodium Level 140 MMOL/L (136-145) Potassium Level 3.9 MMOL/L (3.5-5.1) Chloride Level 102 MMOL/L (98-107) Carbon Dioxide Level 30 MMOL/L (21-32) Anion Gap 8 mmol/L (5-15) Blood Urea Nitrogen 11 mg/dL (7-18) Creatinine 1.0 MG/DL (0.55-1.30) Estimat Glomerular Filtration Rate > 60 mL/min (>60) Glucose Level 99 MG/DL (74-106) Calcium Level 8.8 MG/DL (8.5-10.1) Microbiology Date/Time Source Procedure Growth Status 02/13/18 05:00 Blood Blood Culture - Preliminary NO GROWTH AFTER 48 HOURS Resulted 02/13/18 05:00 Blood Blood Culture - Preliminary NO GROWTH AFTER 48 HOURS Resulted Amos Sue MD Feb 15, 2018 17:00
[2018-02-15 20:00] VITALS: BP 112/63
[2018-02-15] MEDS: Dyna-Hex 2% Top Sol 2oz TOPIC SCH (20:05)
--- NOTE | 2018-02-15 22:07 | General Progress Note ---
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 - pneumonitis - failed swallow - h/o CHF Recommendations - NGT - Abx - Continue TF - Will need PEG placement - will get consent tomorrow - optimize pulmonary parameters - plan on PEG likely Monday Subjective Allergies: Coded Allergies: SULFA (SULFONAMIDE ANTIBIOTICS) (Verified Allergy, Unknown, 09/02/15) Subjective Above noted on NGT feeds (++) ronchi Objective Last 24 Hour Vital Signs Date Time Temp Pulse Resp B/P (MAP) Pulse Ox O2 Delivery O2 Flow Rate FiO2 02/15/18 21:00 Nasal Cannula 3.0 02/15/18 20:58 90 93/51 02/15/18 20:14 103 02/15/18 20:05 101 20 98 Nasal Cannula 4.0 36 02/15/18 20:00 8.0 40 02/15/18 20:00 98.2 84 16 112/63 (79) 100 98.2 02/15/18 19:50 97 Nasal Cannula 4.0 36 02/15/18 19:50 Nasal Cannula 4.0 36 02/15/18 19:50 87 20 97 Nasal Cannula 4.0 36 02/15/18 16:00 87 02/15/18 16:00 8.0 40 02/15/18 16:00 98.1 63 18 98/67 (77) 100 98.1 02/15/18 12:59 81 18 99 Venturi Mask 8.0 40 02/15/18 12:50 80 18 98 Venturi Mask 8.0 40 02/15/18 12:00 8.0 40 02/15/18 12:00 98.0 70 18 94/64 (74) 100 98.0 02/15/18 12:00 88 02/15/18 09:00 Venturi Mask 02/15/18 08:00 85 02/15/18 08:00 98.4 77 17 99/66 (77) 97 98.4 02/15/18 08:00 8.0 40 02/15/18 07:31 85 20 99 Venturi Mask 8.0 40 02/15/18 07:21 83 18 98 Venturi Mask 8.0 40 02/15/18 07:21 98 Venturi Mask 8.0 40 02/15/18 07:21 Venturi Mask 8.0 40 02/15/18 05:25 83 21 98 Full Face 35 02/15/18 04:00 8.0 40 02/15/18 04:00 77 02/15/18 04:00 98.2 77 22 111/77 (88) 99 98.2 02/15/18 03:25 78 18 98 Full Face 35 02/15/18 01:50 91 23 99 Bi-pap 40 02/15/18 01:38 80 18 99 Bi-pap 40 02/15/18 01:38 80 18 99 Full Face 35 02/15/18 00:00 74 02/15/18 00:00 8.0 02/15/18 00:00 98.3 75 19 114/73 (87) 97 98.3 02/14/18 23:45 67 20 99 Full Face 35 Intake and Output 02/14/18 02/15/18 19:00 07:00 Output Total 500 ml 1100 ml Balance -500 ml -1100 ml Output Urine Total 500 ml 1100 ml # Voids 4 Laboratory Tests 02/15/18 07:00: White Blood Count 8.2, Red Blood Count 3.81L, Hemoglobin 12.3L, Hematocrit 37.1L , Mean Corpuscular Volume 97, Mean Corpuscular Hemoglobin 32.2H, Mean Corpuscular Hemoglobin Concent 33.2, Red Cell Distribution Width 14.0, Platelet Count 199, Mean Platelet Volume 8.1, Neutrophils (%) (Auto) 71.5, Lymphocytes (% ) (Auto) 17.8L, Monocytes (%) (Auto) 7.9, Eosinophils (%) (Auto) 1.7, Basophils (%) (Auto) 1.0, Prothrombin Time 11.8H, Prothromb Time International Ratio 1.1, Activated Partial Thromboplast Time 41H, Sodium Level 140, Potassium Level 3.9, Chloride Level 102, Carbon Dioxide Level 30, Anion Gap 8, Blood Urea Nitrogen 11 , Creatinine 1.0, Estimat Glomerular Filtration Rate > 60, Glucose Level 99, Calcium Level 8.8 Height (Feet): 5 Height (Inches): 2.00 Weight (Pounds): 112 Objective WDWN WM NCAT supple Chest b/l Ronchi RR abd soft ND no edema OBS Michael Estevez MD Feb 15, 2018 22:07
[2018-02-16] VITALS: BP 107/60
[2018-02-16] MEDS: Albuterol/Ipratropium 3ml neb HHN SCH ×4 (01:38→19:49)
[2018-02-16 04:00] VITALS: BP 99/55
[2018-02-16] MEDS: Piperacillin/Tazobactam 3.375 GM in D5W 110 ML IVPB SCH (05:59)
[2018-02-16] MEDS: Heparin 5000 units/ml inj SUBQ SCH ×3 (06:00→21:22)
[2018-02-16 08:00] VITALS: BP 121/70
--- NOTE | 2018-02-16 08:09 | Cardiology Progress Note ---
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 pneumonia arf hs of svt chronic subdural hematoma eczema no sig rhonchi at the time of my examination echo noted normal lv systolic function bp seems fine is afebrile still repeat blood cx neg more than 72 hours no svt remains on bb hemodynamically stable at the moment wbc min up on 11 no labs yet today seems mreo stable awiats peg iv abx Subjective ROS Limited/Unobtainable: Yes Subjective appear calm and dry no sig cough during my evaluation Objective Last 24 Hour Vital Signs Date Time Temp Pulse Resp B/P (MAP) Pulse Ox O2 Delivery O2 Flow Rate FiO2 02/16/18 07:34 99 Nasal Cannula 4.0 36 02/16/18 07:34 Nasal Cannula 4.0 36 02/16/18 07:33 83 22 98 Nasal Cannula 4.0 36 02/16/18 05:32 93 19 97 Full Face 35 02/16/18 04:00 8.0 40 02/16/18 04:00 98.6 74 21 99/55 (70) 98 98.6 02/16/18 03:41 89 21 97 Full Face 35 02/16/18 03:35 96 02/16/18 01:49 92 27 96 Bi-pap 40 02/16/18 01:38 91 24 98 Full Face 35 02/16/18 01:38 91 24 98 Bi-pap 40 02/16/18 00:00 98.6 94 20 107/60 (76) 99 98.6 02/15/18 23:27 94 18 97 Full Face 35 02/15/18 21:00 Nasal Cannula 3.0 02/15/18 20:58 90 93/51 02/15/18 20:14 103 02/15/18 20:05 101 20 98 Nasal Cannula 4.0 36 02/15/18 20:00 8.0 40 02/15/18 20:00 98.2 84 16 112/63 (79) 100 98.2 02/15/18 19:50 97 Nasal Cannula 4.0 36 02/15/18 19:50 Nasal Cannula 4.0 36 02/15/18 19:50 87 20 97 Nasal Cannula 4.0 36 02/15/18 16:00 87 02/15/18 16:00 8.0 40 02/15/18 16:00 98.1 63 18 98/67 (77) 100 98.1 02/15/18 12:59 81 18 99 Venturi Mask 8.0 40 02/15/18 12:50 80 18 98 Venturi Mask 8.0 40 02/15/18 12:00 8.0 40 02/15/18 12:00 98.0 70 18 94/64 (74) 100 98.0 02/15/18 12:00 88 02/15/18 09:00 Venturi Mask General Appearance: no apparent distress, alert Neck: no JVD Cardiovascular: normal rate Respiratory/Chest: lungs clear Abdomen: normal bowel sounds, non tender, soft Extremities: no swelling Intake and Output 02/15/18 02/16/18 19:00 07:00 Intake Total 50 ml 50 ml Balance 50 ml 50 ml Tube Feeding 50 ml 50 ml # Voids 3 Amos Sue MD Feb 16, 2018 08:09
[2018-02-16] MEDS: Tums 500mg GT SCH ×3 (08:35→17:07)
[2018-02-16] MEDS: Vancomycin 500 MG in D5W 110 ML IVPB SCH ×2 (08:35→21:18)
[2018-02-16] MEDS: levETIRAcetam 1,000mg/NS100ml 100 ML IVPB SCH (08:35)
[2018-02-16] MEDS: Pantoprazole Inj IVP SCH (08:35)
[2018-02-16] MEDS: Aspirin Baby 81mg NG SCH (08:35)
[2018-02-16] MEDS: Docusate 100mg/10ml Liq NG SCH ×2 (08:35→17:07)
[2018-02-16] MEDS: Metoprolol Tartrate 12.5mg TAB NG SCH ×2 (08:35→21:18)
[2018-02-16] MEDS: Triamcinolone 0.025% oint TOPIC SCH ×3 (08:36→17:57)
--- NOTE | 2018-02-16 08:53 | Pulmonology Progress Note ---
Assessment/Plan Problems: (1) Pneumonia (2) Sepsis (3) Congenital heart disease, adult (4) Down syndrome (5) Mental retardation (6) Anxiety Assessment/Plan ASSESSMENT: The patient is a 67-year-old male with a history of mental retardation and chronic subdural hematomas, recently admitted to [facility] with tracheobronchitis and poor mucociliary clearance, now presenting with dehydration, mild troponin elevation, acute kidney injury, and possible right infrahilar infiltrate. PROBLEM LIST: 1. Respiratory failure 2. Right perihilar infiltrate, healthcare-associated pneumonia. 3. MRSA sepsis and pneumonia 4. Acute kidney injury, likely dehydration. 5. Mild troponin elevation, likely demand ischemia. 6. History of recurrent aspiration pneumonia in the past. 7. Chronic subdural hematoma. 8. Mental retardation. 9. Hypothyroidism. 10. Chronic right bundle-branch block. 11. Acute on chronic CVA 12. Elevated D-dimer with negative Duplex and VQ TREATMENT PLAN: 1. F/U CXR 2. BiPAP PRN and qHS 3. Titrate down FiO2 to keep SaO2 > 90%. 4. RTC and PRN HHN's, CPT 5. Mucinex and PRN Robitussin 6. Abx per ID, F/U Cx's 7. 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 Monitor volumes 9. Hep SQ for DVT Px 10. FC Subjective Allergies: Coded Allergies: SULFA (SULFONAMIDE ANTIBIOTICS) (Verified Allergy, Unknown, 09/02/15) Subjective AFVSS, Used BiPAP ON, now off VM and on 4L Better today less cough less congestion + SOB no F/C no CP no distress Objective Last 24 Hour Vital Signs Date Time Temp Pulse Resp B/P (MAP) Pulse Ox O2 Delivery O2 Flow Rate FiO2 02/16/18 08:35 87 121/70 02/16/18 08:00 98.4 87 21 121/70 (87) 98 98.4 02/16/18 07:39 79 22 100 Nasal Cannula 4.0 36 02/16/18 07:34 99 Nasal Cannula 4.0 36 02/16/18 07:34 Nasal Cannula 4.0 36 02/16/18 07:33 83 22 98 Nasal Cannula 4.0 36 10/12/18 05:32 93 19 97 Full Face 35 02/16/18 04:00 8.0 40 02/16/18 04:00 98.6 74 21 99/55 (70) 98 98.6 02/16/18 03:41 89 21 97 Full Face 35 02/16/18 03:35 96 02/16/18 01:49 92 27 96 Bi-pap 40 02/16/18 01:38 91 24 98 Full Face 35 02/16/18 01:38 91 24 98 Bi-pap 40 02/16/18 00:00 98.6 94 20 107/60 (76) 99 98.6 02/15/18 23:27 94 18 97 Full Face 35 02/15/18 21:00 Nasal Cannula 3.0 02/15/18 20:58 90 93/51 02/15/18 20:14 103 02/15/18 20:05 101 20 98 Nasal Cannula 4.0 36 02/15/18 20:00 8.0 40 02/15/18 20:00 98.2 84 16 112/63 (79) 100 98.2 02/15/18 19:50 97 Nasal Cannula 4.0 36 02/15/18 19:50 Nasal Cannula 4.0 36 02/15/18 19:50 87 20 97 Nasal Cannula 4.0 36 02/15/18 16:00 87 02/15/18 16:00 8.0 40 02/15/18 16:00 98.1 63 18 98/67 (77) 100 98.1 02/15/18 12:59 81 18 99 Venturi Mask 8.0 40 02/15/18 12:50 80 18 98 Venturi Mask 8.0 40 02/15/18 12:00 8.0 40 02/15/18 12:00 98.0 70 18 94/64 (74) 100 98.0 02/15/18 12:00 88 02/15/18 09:00 Venturi Mask Intake and Output 02/15/18 02/16/18 19:00 07:00 Intake Total 50 ml 50 ml Balance 50 ml 50 ml Tube Feeding 50 ml 50 ml # Voids 3 General Appearance: no acute distress, cachetic HEENT: normocephalic, atraumatic Respiratory/Chest: rhonchi - scattered Cardiovascular: normal peripheral pulses, normal rate, regular rhythm Abdomen: normal bowel sounds, soft, non tender, no organomegaly, non distended , no mass Extremities: no cyanosis, no clubbing, no edema Current Medications Medications (Trade) Dose Ordered Sig/Eddy Route PRN Reason Start Time Stop Time Status Last Admin Dose Admin Acetaminophen (Tylenol) 650 mg Q6H PRN NG Mild Pain/Temp > 100.5 02/11/18 18:18 03/12/18 18:17 Albuterol/ Ipratropium (Albuterol/ Ipratropium) 3 ml Q4H PRN HHN Shortness of Breath 02/12/18 14:17 02/17/18 14:16 Albuterol/ Ipratropium (Albuterol/ Ipratropium) 3 ml Q6HRT HHN 02/12/18 19:00 02/17/18 18:59 02/16/18 07:30 Aspirin (ASA) 81 mg DAILY NG 02/12/18 09:00 03/14/18 08:59 02/16/18 08:35 Atorvastatin Calcium (Lipitor) 10 mg BEDTIME NG 02/11/18 21:00 03/09/18 20:59 02/15/18 20:59 Calcium Carbonate (Tums) 500 mg THREE TIMES A DAY GT 02/12/18 09:00 03/09/18 08:59 02/16/18 08:35 Chlorhexidine Gluconate (Tesha-Hex 2%) 1 applic DAILY@2000 TOPIC 02/11/18 20:00 03/11/18 19:59 02/15/18 20:05 Docusate Sodium (Colace) 100 mg TWICE A DAY NG 02/12/18 09:00 03/13/18 08:59 02/16/18 08:35 Guaifenesin (Robitussin) 100 mg Q4H PRN NG For Cough 02/13/18 13:45 03/14/18 18:14 Heparin Sodium (Porcine) (Heparin 5000 units/ml) 5,000 units EVERY 8 HOURS SUBQ 02/11/18 22:00 03/09/18 13:59 02/15/18 14:05 Levetiracetam 100 ml @ 400 mls/hr Q12HR IVPB 02/11/18 21:00 03/09/18 08:59 02/16/18 08:35 Levothyroxine Sodium (Synthroid) 125 mcg DAILY IV 02/12/18 09:00 03/09/18 08:59 02/15/18 09:36 Magnesium Hydroxide (Mom) 30 ml HSPRN PRN NG Constipation 02/11/18 21:00 03/09/18 20:59 Metoprolol Tartrate (Lopressor) 5 mg Q4H PRN IVP hr>130 02/11/18 18:19 03/09/18 18:18 Metoprolol Tartrate (Lopressor) 12.5 mg Q12HR NG 02/11/18 21:00 03/09/18 08:59 02/16/18 08:35 Olanzapine (ZyPREXA) 5 mg DAILY@2100 NG 02/11/18 21:00 03/12/18 20:59 02/15/18 20:59 Pantoprazole (Protonix) 40 mg DAILY IVP 02/12/18 09:00 03/09/18 09:20 02/16/18 08:35 Piperacillin Sod/ Tazobactam Sod 3.375 gm/Dextrose 110 ml @ 27.5 mls/hr EVERY 8 HOURS IVPB 02/11/18 22:00 02/16/18 23:00 02/16/18 05:59 Triamcinolone Acetonide (Kenalog 0.025% Oint) 1 applic THREE TIMES A DAY TOPIC 02/14/18 18:00 03/16/18 17:59 02/16/18 08:36 Vancomycin HCl (Vanco rx to dose) 1 ea DAILY PRN MISC PER PHARMACY 02/12/18 09:00 03/09/18 07:29 Vancomycin HCl 500 mg/Dextrose 110 ml @ 110 mls/hr Q12H IVPB 02/11/18 20:00 03/06/18 19:59 02/16/18 08:35 Sae Forrest MD Feb 16, 2018 08:53
--- NOTE | 2018-02-16 10:47 | Diagnostic Imaging Report ---
Indication: Dyspnea Comparison: 02/08/2018 A single view chest radiograph was obtained. Findings: Cardiomegaly is present. There is a nasogastric tube which is projected over the upper mediastinum. Not certain whether this is in the esophagus or trachea. Suggest removing the tube and reattempting placement. This was discussed with the floor nurse. The lungs remain clear. IMPRESSION: Nasogastric tube is projected over the upper mediastinum. Not certain whether this is in the esophagus or trachea. No acute cardiopulmonary disease identified
--- NOTE | 2018-02-16 11:06 | Infectious Diseases Prog Note ---
"Assessment/Plan Assessment/Plan antibiotics : vancomycin iv, zosyn A 1. MRSA | e.coli pneumonia 2. respiratory failure resolved 3. subdural hematoma 4. mental retardation 5. MRSA sepsis ? endocarditis 6. CVA P 1. continue vancomycin iv 18 more days 2. d/c zosyn 3. will follow up cultures Subjective ROS Limited/Unobtainable: Yes Allergies: Coded Allergies: SULFA (SULFONAMIDE ANTIBIOTICS) (Verified Allergy, Unknown, 09/02/15) Objective Vital Signs Last 24 Hour Vital Signs Date Time Temp Pulse Resp B/P (MAP) Pulse Ox O2 Delivery O2 Flow Rate FiO2 02/16/18 08:35 87 121/70 02/16/18 08:00 98.4 87 21 121/70 (87) 98 98.4 02/16/18 07:39 79 22 100 Nasal Cannula 4.0 36 02/16/18 07:34 99 Nasal Cannula 4.0 36 02/16/18 07:34 Nasal Cannula 4.0 36 02/16/18 07:33 83 22 98 Nasal Cannula 4.0 36 02/16/18 05:32 93 19 97 Full Face 35 02/16/18 04:00 8.0 40 02/16/18 04:00 98.6 74 21 99/55 (70) 98 98.6 02/16/18 03:41 89 21 97 Full Face 35 02/16/18 03:35 96 02/16/18 01:49 92 27 96 Bi-pap 40 02/16/18 01:38 91 24 98 Full Face 35 02/16/18 01:38 91 24 98 Bi-pap 40 02/16/18 00:00 98.6 94 20 107/60 (76) 99 98.6 02/15/18 23:27 94 18 97 Full Face 35 02/15/18 21:00 Nasal Cannula 3.0 02/15/18 20:58 90 93/51 02/15/18 20:14 103 02/15/18 20:05 101 20 98 Nasal Cannula 4.0 36 02/15/18 20:00 8.0 40 02/15/18 20:00 98.2 84 16 112/63 (79) 100 98.2 02/15/18 19:50 97 Nasal Cannula 4.0 36 02/15/18 19:50 Nasal Cannula 4.0 36 02/15/18 19:50 87 20 97 Nasal Cannula 4.0 36 02/15/18 16:00 87 02/15/18 16:00 8.0 40 02/15/18 16:00 98.1 63 18 98/67 (77) 100 98.1 02/15/18 12:59 81 18 99 Venturi Mask 8.0 40 02/15/18 12:50 80 18 98 Venturi Mask 8.0 40 02/15/18 12:00 8.0 40 02/15/18 12:00 98.0 70 18 94/64 (74) 100 98.0 02/15/18 12:00 88 Height (Feet): 5 Height (Inches): 2.00 Weight (Pounds): 119 Respiratory/Chest: lungs clear Cardiovascular: normal rate, regular rhythm, no gallop/murmur Abdomen: soft, non tender Extremities: no edema, other - legs erythematous rash decreased, right groin catheter Current Medications Medications (Trade) Dose Ordered Sig/Eddy Route PRN Reason Start Time Stop Time Status Last Admin Dose Admin Acetaminophen (Tylenol) 650 mg Q6H PRN NG Mild Pain/Temp > 100.5 02/11/18 18:18 03/12/18 18:17 Albuterol/ Ipratropium (Albuterol/ Ipratropium) 3 ml Q4H PRN HHN Shortness of Breath 02/12/18 14:17 02/17/18 14:16 Albuterol/ Ipratropium (Albuterol/ Ipratropium) 3 ml Q6HRT HHN 02/12/18 19:00 02/17/18 18:59 02/16/18 07:30 Aspirin (ASA) 81 mg DAILY NG 02/12/18 09:00 03/14/18 08:59 02/16/18 08:35 Atorvastatin Calcium (Lipitor) 10 mg BEDTIME NG 02/11/18 21:00 03/09/18 20:59 02/15/18 20:59 Calcium Carbonate (Tums) 500 mg THREE TIMES A DAY GT 02/12/18 09:00 03/09/18 08:59 02/16/18 08:35 Chlorhexidine Gluconate (Tesha-Hex 2%) 1 applic DAILY@2000 TOPIC 02/11/18 20:00 11/4/18 19:59 02/15/18 20:05 Docusate Sodium (Colace) 100 mg TWICE A DAY NG 02/12/18 09:00 03/13/18 08:59 02/16/18 08:35 Guaifenesin (Robitussin) 100 mg Q4H PRN NG For Cough 02/13/18 13:45 03/14/18 18:14 Heparin Sodium (Porcine) (Heparin 5000 units/ml) 5,000 units EVERY 8 HOURS SUBQ 02/11/18 22:00 03/09/18 13:59 02/15/18 14:05 Levetiracetam 100 ml @ 400 mls/hr Q12HR IVPB 02/11/18 21:00 03/09/18 08:59 02/16/18 08:35 Levothyroxine Sodium (Synthroid) 125 mcg DAILY IV 02/12/18 09:00 03/09/18 08:59 02/15/18 09:36 Magnesium Hydroxide (Mom) 30 ml HSPRN PRN NG Constipation 02/11/18 21:00 03/09/18 20:59 Metoprolol Tartrate (Lopressor) 5 mg Q4H PRN IVP hr>130 02/11/18 18:19 03/09/18 18:18 Metoprolol Tartrate (Lopressor) 12.5 mg Q12HR NG 02/11/18 21:00 03/09/18 08:59 02/16/18 08:35 Olanzapine (ZyPREXA) 5 mg DAILY@2100 NG 02/11/18 21:00 03/12/18 20:59 02/15/18 20:59 Pantoprazole (Protonix) 40 mg DAILY IVP 02/12/18 09:00 03/09/18 09:20 02/16/18 08:35 Piperacillin Sod/ Tazobactam Sod 3.375 gm/Dextrose 110 ml @ 27.5 mls/hr EVERY 8 HOURS IVPB 02/11/18 22:00 02/16/18 23:00 02/16/18 05:59 Triamcinolone Acetonide (Kenalog 0.025% Oint) 1 applic THREE TIMES A DAY TOPIC 02/14/18 18:00 03/16/18 17:59 02/16/18 08:36 Vancomycin HCl (Vanco rx to dose) 1 ea DAILY PRN MISC PER PHARMACY 02/12/18 09:00 03/09/18 07:29 Vancomycin HCl 500 mg/Dextrose 110 ml @ 110 mls/hr Q12H IVPB 02/11/18 20:00 03/06/18 19:59 02/16/18 08:35 Robbie Johnston MD Feb 16, 2018 11:06"
[2018-02-16 12:00] VITALS: BP 117/72
--- NOTE | 2018-02-16 14:27 | Diagnostic Imaging Report ---
Indication: NG tube Comparison: 02/12/2018 Single view of the abdomen obtained Findings: The NG tube is high in location. The tip is just below the EG junction. IMPRESSION: Nasogastric tube is high and should be advanced 7 to 10 cm.
--- NOTE | 2018-02-16 15:38 | General Progress Note ---
Assessment/Plan Status: deteriorating Status Narrative 1. His NGT is in the esophagus per fiberoptic laryngoscopy and vocal cords are normal anatomy but do not move well and no voice. His aspiration is probably secondary to his subdural hematoma treated at [facility]. The blood from suctioning is most probably from his inability to swallow secondary to CVA-noted above. Then suctioning of secretions leading to bleeding. Assessment/Plan 1. If pt does not become DNR, consider FEES (Functional Endoscopic Evaluation of Swallowing)-not offered at [facility] Other option is to put G-tube in. 2 Strongly suggest palliative care team to evaluate pt along and make recommendations to individual responsible for pt. health care. Subjective Date patient seen: Feb 16, 2018 Time patient seen: 15:00 ROS Limited/Unobtainable: Yes Constitutional: Reports: other - poorly responsive HEENT: Reports: other - blood with suctioning by respiratory service, recurrent pneumonia, no teeth Allergies: Coded Allergies: SULFA (SULFONAMIDE ANTIBIOTICS) (Verified Allergy, Unknown, 09/02/15) Subjective Pt is non responsive laying in bed. He is breathing and pulse is regular with eyes open, but does not respond to voice commands. Objective Last 24 Hour Vital Signs Date Time Temp Pulse Resp B/P (MAP) Pulse Ox O2 Delivery O2 Flow Rate FiO2 02/16/18 13:20 83 20 99 Nasal Cannula 4.0 36 02/16/18 13:02 80 20 98 Nasal Cannula 4.0 36 02/16/18 12:00 63 02/16/18 12:00 97.6 66 21 117/72 (87) 98 97.6 02/16/18 09:00 Nasal Cannula 3.0 02/16/18 08:35 87 121/70 02/16/18 08:00 4.0 02/16/18 08:00 80 02/16/18 08:00 98.4 87 21 121/70 (87) 98 98.4 02/16/18 07:39 79 22 100 Nasal Cannula 4.0 36 02/16/18 07:34 99 Nasal Cannula 4.0 36 02/16/18 07:34 Nasal Cannula 4.0 36 02/16/18 07:33 83 22 98 Nasal Cannula 4.0 36 02/16/18 05:32 93 19 97 Full Face 35 02/16/18 04:00 8.0 40 02/16/18 04:00 98.6 74 21 99/55 (70) 98 98.6 02/16/18 03:41 89 21 97 Full Face 35 02/16/18 03:35 96 02/16/18 01:49 92 27 96 Bi-pap 40 02/16/18 01:38 91 24 98 Full Face 35 02/16/18 01:38 91 24 98 Bi-pap 40 02/16/18 00:00 98.6 94 20 107/60 (76) 99 98.6 02/15/18 23:27 94 18 97 Full Face 35 02/15/18 21:00 Nasal Cannula 3.0 02/15/18 20:58 90 93/51 02/15/18 20:14 103 02/15/18 20:05 101 20 98 Nasal Cannula 4.0 36 02/15/18 20:00 8.0 40 02/15/18 20:00 98.2 84 16 112/63 (79) 100 98.2 02/15/18 19:50 97 Nasal Cannula 4.0 36 02/15/18 19:50 Nasal Cannula 4.0 36 02/15/18 19:50 87 20 97 Nasal Cannula 4.0 36 02/15/18 16:00 87 02/15/18 16:00 8.0 40 02/15/18 16:00 98.1 63 18 98/67 (77) 100 98.1 Intake and Output 02/15/18 02/16/18 19:00 07:00 Intake Total 50 ml 50 ml Balance 50 ml 50 ml Tube Feeding 50 ml 50 ml # Voids 3 CXR earlier today, unsure if NGT in esop or lungs. Height (Feet): 5 Height (Inches): 2.00 Weight (Pounds): 119 General Appearance: lethargic, cachetic EENT: other - no teeth, Fiberoptic laryngoscopy-NGT in esop, vocal cords WNL Neck: non-tender Nicholas Marcus MD Feb 16, 2018 15:38
[2018-02-16 16:00] VITALS: BP 109/68
--- NOTE | 2018-02-16 18:56 | General Progress Note ---
Assessment/Plan Status: progressing Assessment/Plan ASSESSMENT: 1. Shortness of breath, possibly secondary to pneumonia, possible sepsis. 2. Acute respiratory failure requiring BiPAP. 3. Acute kidney injury. 4. Elevated troponin, possibly from demand ischemia. 5. Developmental delay. 6. Dysphagia. 7. Psoriasis. 8. Acute left cerebellar infarction 9. MRSA bacteremia/Pneumonia/?endocarditis 10. epistaxis, secondary to trauma from NGT and suctioning PLAN: 1. Continue the patient on BiPAP support prn 2. Monitor vitals and I and O's. 3. advance NGT and start diet in cxr confirmed palcement 4. The patient was started on IV vancomycin and Zosyn. 5. To continue breathing treatment with frequent suctioning p.r.n. 6. Continue correction medications. 7. Monitor troponin. 8. Heparin for DVT prophylaxis. 9. Protonix for GI prophylaxis. 10. Dr. Forrest, Pulmonary consult and Dr. Johnston, ID consult. 11. change aspirin to 81 mg daily 12. fu Echo and carotic us and venous duplex 13 gi consult appreciated, NGT for now repeat swallow eval later when more stable 14. NGT for meds and tube feeding 15. repeat Blood cultures to check for clearance of MRSA conitnue supportive care continue telemetry VQ scan negative for PE monitor labs ENT consult to evaluate for epistaxis, will check am cbc and INR/PTT PICC line placemetn for IV vanco for 19 more days for possible endocarditis PEG placement per Dr. Bryan possibly Monday I spoke with Dr. Mckenna from [facility] who agrees to PEG for consent can call [phone] Nini Baltazar director or for Emergency [phone] Subjective Date patient seen: Feb 16, 2018 ROS Limited/Unobtainable: Yes Gastrointestinal/Abdominal: Reports: poor appetite Allergies: Coded Allergies: SULFA (SULFONAMIDE ANTIBIOTICS) (Verified Allergy, Unknown, 09/02/15) Objective Last 24 Hour Vital Signs Date Time Temp Pulse Resp B/P (MAP) Pulse Ox O2 Delivery O2 Flow Rate FiO2 02/16/18 16:00 4.0 02/16/18 16:00 98.9 79 20 109/68 (82) 98 98.9 02/16/18 16:00 93 02/16/18 13:20 83 20 99 Nasal Cannula 4.0 36 02/16/18 13:02 80 20 98 Nasal Cannula 4.0 36 02/16/18 12:00 63 02/16/18 12:00 97.6 66 21 117/72 (87) 98 97.6 02/16/18 09:00 Nasal Cannula 3.0 02/16/18 08:35 87 121/70 02/16/18 08:00 4.0 02/16/18 08:00 80 02/16/18 08:00 98.4 87 21 121/70 (87) 98 98.4 02/16/18 07:39 79 22 100 Nasal Cannula 4.0 36 02/16/18 07:34 99 Nasal Cannula 4.0 36 02/16/18 07:34 Nasal Cannula 4.0 36 02/16/18 07:33 83 22 98 Nasal Cannula 4.0 36 02/16/18 05:32 93 19 97 Full Face 35 02/16/18 04:00 8.0 40 02/16/18 04:00 98.6 74 21 99/55 (70) 98 98.6 02/16/18 03:41 89 21 97 Full Face 35 02/16/18 03:35 96 02/16/18 01:49 92 27 96 Bi-pap 40 02/16/18 01:38 91 24 98 Full Face 35 02/16/18 01:38 91 24 98 Bi-pap 40 02/16/18 00:00 98.6 94 20 107/60 (76) 99 98.6 02/15/18 23:27 94 18 97 Full Face 35 02/15/18 21:00 Nasal Cannula 3.0 02/15/18 20:58 90 93/51 02/15/18 20:14 103 02/15/18 20:05 101 20 98 Nasal Cannula 4.0 36 02/15/18 20:00 8.0 40 02/15/18 20:00 98.2 84 16 112/63 (79) 100 98.2 02/15/18 19:50 97 Nasal Cannula 4.0 36 02/15/18 19:50 Nasal Cannula 4.0 36 02/15/18 19:50 87 20 97 Nasal Cannula 4.0 36 Intake and Output 02/15/18 02/16/18 19:00 07:00 Intake Total 50 ml 50 ml Balance 50 ml 50 ml Tube Feeding 50 ml 50 ml # Voids 3 Laboratory Tests 10/12/18 18:30: Vancomycin Level Trough [Pending] Height (Feet): 5 Height (Inches): 2.00 Weight (Pounds): 119 General Appearance: no apparent distress, alert EENT: PERRL/EOMI, pharynx normal Neck: non-tender, supple Cardiovascular: normal rate, regular rhythm, no gallop/murmur, no JVD Respiratory/Chest: lungs clear Abdomen: non tender, soft, no mass Edema: no edema noted Arm (L), no edema noted Arm (R), no edema noted Leg (L), no edema noted Leg (R), no edema noted Pedal (L), no edema noted Pedal (R), no edema noted Generalized Neurologic: responsive Skin: rash Lymphatic: normal anterior cervical (L), normal anterior cervical (R), normal posterior cervical (L), normal posterior cervical (R), normal submandibular (L) , normal submandibular (R), normal supraclavicular (L), normal supraclavicular ( R), normal axillary (L), normal axillary (R), normal inguinal (L), normal inguinal (R), normal other Diann Silver MD Feb 16, 2018 18:56
--- NOTE | 2018-02-16 19:48 | General Progress Note ---
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 - pneumonitis - failed swallow - h/o CHF Recommendations - NGT - Abx - Continue TF - PEG placement MONDAY at 0800 - optimize pulmonary parameters Subjective Allergies: Coded Allergies: SULFA (SULFONAMIDE ANTIBIOTICS) (Verified Allergy, Unknown, 09/02/15) Subjective Above noted on NGT feeds (++) ronchi d/w PMD consent obtained for PEG Objective Last 24 Hour Vital Signs Date Time Temp Pulse Resp B/P (MAP) Pulse Ox O2 Delivery O2 Flow Rate FiO2 02/16/18 16:00 4.0 02/16/18 16:00 98.9 79 20 109/68 (82) 98 98.9 02/16/18 16:00 93 02/16/18 13:20 83 20 99 Nasal Cannula 4.0 36 02/16/18 13:02 80 20 98 Nasal Cannula 4.0 36 02/16/18 12:00 63 02/16/18 12:00 97.6 66 21 117/72 (87) 98 97.6 02/16/18 09:00 Nasal Cannula 3.0 02/16/18 08:35 87 121/70 02/16/18 08:00 4.0 02/16/18 08:00 80 02/16/18 08:00 98.4 87 21 121/70 (87) 98 98.4 02/16/18 07:39 79 22 100 Nasal Cannula 4.0 36 02/16/18 07:34 99 Nasal Cannula 4.0 36 02/16/18 07:34 Nasal Cannula 4.0 36 02/16/18 07:33 83 22 98 Nasal Cannula 4.0 36 02/16/18 05:32 93 19 97 Full Face 35 02/16/18 04:00 8.0 40 02/16/18 04:00 98.6 74 21 99/55 (70) 98 98.6 02/16/18 03:41 89 21 97 Full Face 35 02/16/18 03:35 96 02/16/18 01:49 92 27 96 Bi-pap 40 02/16/18 01:38 91 24 98 Full Face 35 02/16/18 01:38 91 24 98 Bi-pap 40 02/16/18 00:00 98.6 94 20 107/60 (76) 99 98.6 02/15/18 23:27 94 18 97 Full Face 35 02/15/18 21:00 Nasal Cannula 3.0 02/15/18 20:58 90 93/51 02/15/18 20:14 103 02/15/18 20:05 101 20 98 Nasal Cannula 4.0 36 02/15/18 20:00 8.0 40 02/15/18 20:00 98.2 84 16 112/63 (79) 100 98.2 02/15/18 19:50 97 Nasal Cannula 4.0 36 02/15/18 19:50 Nasal Cannula 4.0 36 02/15/18 19:50 87 20 97 Nasal Cannula 4.0 36 Intake and Output 02/15/18 02/16/18 19:00 07:00 Intake Total 50 ml 50 ml Balance 50 ml 50 ml Tube Feeding 50 ml 50 ml # Voids 3 Laboratory Tests 02/16/18 18:30: Vancomycin Level Trough 17.3H Height (Feet): 5 Height (Inches): 2.00 Weight (Pounds): 119 Objective WDWN WM NCAT supple Chest b/l Ronchi RR abd soft ND no edema OBS Michael Estevez MD Feb 16, 2018 19:47
[2018-02-16 20:00] VITALS: BP 100/76
--- NOTE | 2018-02-16 20:34 | Diagnostic Imaging Report ---
EXAM: XR Abdomen, 2 Views CLINICAL HISTORY: NGT TECHNIQUE: Frontal view of the abdomen/pelvis with upright view of the abdomen. COMPARISON: 02/16/2018 FINDINGS: Lower thorax: The tip of an esophagogastric tube projects over the gastric antrum. Intraperitoneal space: No free air. Gastrointestinal tract: Unremarkable. No dilation. Bones/joints: Scoliosis. IMPRESSION: Esophagogastric tube terminates in the gastric antrum.
[2018-02-16] MEDS: levETIRAcetam 500mg/5ml Liquid NG SCH (21:18)
[2018-02-16] MEDS: Dyna-Hex 2% Top Sol 2oz TOPIC SCH (21:18)
[2018-02-17] VITALS: BP 102/60
[2018-02-17] MEDS: Albuterol/Ipratropium 3ml neb HHN SCH ×5 (00:53→23:03)
[2018-02-17 04:00] VITALS: BP 100/57
--- NOTE | 2018-02-17 05:15 | Operative Note - Dictated ---
DATE OF OPERATION: 02/16/2018 "NOTE: POOR AUDIO QUALITY" SURGEON: Nicholas Marcus M.D. DRY CLEANING COUNTER CLERK: None. ANESTHESIA: None. INDICATION FOR PROCEDURE: The patient with suctioning of blood and recurrent aspiration pneumonia. HISTORY OF PRESENT ILLNESS: He had a subdural hematoma, was admitted with aspiration pneumonia. While he has been here, respiratory noted he had difficulty with handling his secretions and with suctioning had some blood. PREOPERATIVE DIAGNOSIS: epistaxis vs tumor or laceration upper airway. POSTOPERATIVE DIAGNOSIS: trauma with suctioning tip of epiglottis. . FINDINGS: He has a small little bruise at the entrance of the esophagus. There is no active bleeding or mass. The vocal cord quality was normal, although they are not moving well because the patient is lying in bed with his mouth opened, poorly responsive. PROCEDURE: Fiberoptic laryngoscopy. TECHNIQUE: The patient was prepped and draped in usual manner. Scope was placed through the mouth without difficulty. I was able to visualize the area well including esophagus marked through the vocal cords. I then proceeded to pull the scope out. ESTIMATED BLOOD LOSS: Zero. COUNTS: None. DRAINS: None. Nicholas Marcus M.D. DR: TONI JOB#: [id number] CC: APOLLO
[2018-02-17] MEDS: Heparin 5000 units/ml inj SUBQ SCH ×3 (06:00→23:14)
[2018-02-17 07:36] LABS: BASOPHILS % (AUTO) 1.5 % (0.0-2.0); EOSINOPHILS % (AUTO) 2.3 % (0.0-3.0); HEMATOCRIT 37.9 % (42.0-52.0); HEMOGLOBIN 12.5 G/DL (14.2-18.0); LYMPHOCYTES % (AUTO) 13.5 % (20.0-45.0); MEAN CORPUSCULAR VOLUME 97 FL (80-99); MONOCYTES % (AUTO) 8.8 % (1.0-10.0); NEUTROPHILS % (AUTO) 73.8 % (45.0-75.0); PLATELET COUNT 220 K/UL (150-450); RED BLOOD COUNT 3.92 M/UL (4.70-6.10); RED CELL DISTRIBUTION WIDTH 13.8 % (11.6-14.8); WHITE BLOOD COUNT 8.7 K/UL (4.8-10.8)
[2018-02-17 07:54] LABS: ANION GAP 8 mmol/L (5-15); BLOOD UREA NITROGEN 18 mg/dL (7-18); CARBON DIOXIDE 31 MMOL/L (21-32); CHLORIDE 102 MMOL/L (98-107); POTASSIUM 4.1 MMOL/L (3.5-5.1); SODIUM 141 MMOL/L (136-145)
[2018-02-17 08:00] VITALS: BP 93/48
[2018-02-17] MEDS: Vancomycin 500 MG in D5W 110 ML IVPB SCH ×2 (08:13→23:10)
--- NOTE | 2018-02-17 08:18 | General Progress Note ---
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 - pneumonitis - failed swallow - h/o CHF Recommendations - NGT - Abx - Continue TF - PEG placement MONDAY at 0800 - optimize pulmonary parameters Subjective ROS Limited/Unobtainable: No Allergies: Coded Allergies: SULFA (SULFONAMIDE ANTIBIOTICS) (Verified Allergy, Unknown, 09/02/15) Objective Last 24 Hour Vital Signs Date Time Temp Pulse Resp B/P (MAP) Pulse Ox O2 Delivery O2 Flow Rate FiO2 02/17/18 07:17 76 20 100 Nasal Cannula 4.0 36 02/17/18 07:10 Nasal Cannula 4.0 36 02/17/18 07:10 78 20 99 Nasal Cannula 4.0 36 02/17/18 07:10 99 Nasal Cannula 4.0 36 02/17/18 05:16 86 23 98 Full Face 35 02/17/18 04:00 4.0 02/17/18 04:00 98.0 89 19 100/57 (71) 93 98.0 02/17/18 03:37 89 02/17/18 03:07 82 22 98 Full Face 35 02/17/18 01:54 71 21 Bi-pap 40 02/17/18 00:59 80 21 99 Bi-pap 35 02/17/18 00:55 79 20 97 Full Face 35 02/17/18 00:52 79 20 98 Bi-pap 35 02/17/18 00:00 96.6 65 22 102/60 (74) 94 96.6 02/17/18 00:00 4.0 02/16/18 23:58 95 02/16/18 23:04 95 18 98 Full Face 35 02/16/18 21:18 87 97/53 02/16/18 21:00 Nasal Cannula 3.0 02/16/18 20:00 4.0 02/16/18 20:00 97.6 71 22 100/76 (84) 95 97.6 02/16/18 19:56 81 20 99 Nasal Cannula 4.0 36 02/16/18 19:51 Nasal Cannula 4.0 36 02/16/18 19:51 97 Nasal Cannula 4.0 36 02/16/18 19:49 83 20 97 Nasal Cannula 4.0 36 02/16/18 19:23 88 02/16/18 16:00 4.0 02/16/18 16:00 98.9 79 20 109/68 (82) 98 98.9 02/16/18 16:00 93 02/16/18 13:20 83 20 99 Nasal Cannula 4.0 36 02/16/18 13:02 80 20 98 Nasal Cannula 4.0 36 02/16/18 12:00 63 02/16/18 12:00 97.6 66 21 117/72 (87) 98 97.6 02/16/18 09:00 Nasal Cannula 3.0 02/16/18 08:35 87 121/70 Intake and Output 02/16/18 02/17/18 19:00 07:00 Intake Total 27.5 ml 110 ml Output Total 500 ml Balance 27.5 ml -390 ml IV Total 27.5 ml 110 ml Output Urine Total 500 ml # Voids 4 Laboratory Tests 02/16/18 18:30: Vancomycin Level Trough 17.3H 02/17/18 06:05: White Blood Count 8.7, Red Blood Count 3.92L, Hemoglobin 12.5L, Hematocrit 37.9L , Mean Corpuscular Volume 97, Mean Corpuscular Hemoglobin 31.9H, Mean Corpuscular Hemoglobin Concent 33.0, Red Cell Distribution Width 13.8, Platelet Count 220, Mean Platelet Volume 7.9, Neutrophils (%) (Auto) 73.8, Lymphocytes (% ) (Auto) 13.5L, Monocytes (%) (Auto) 8.8, Eosinophils (%) (Auto) 2.3, Basophils (%) (Auto) 1.5, Sodium Level 141, Potassium Level 4.1, Chloride Level 102, Carbon Dioxide Level 31, Anion Gap 8, Blood Urea Nitrogen 18, Creatinine 1.0, Estimat Glomerular Filtration Rate > 60, Glucose Level 122H, Calcium Level 9.0 Height (Feet): 5 Height (Inches): 2.00 Weight (Pounds): 120 General Appearance: no apparent distress EENT: normal ENT inspection Neck: supple Cardiovascular: normal rate Respiratory/Chest: decreased breath sounds Abdomen: normal bowel sounds, non tender, soft Extremities: non-tender Cahpin Berger MD Feb 17, 2018 08:18
[2018-02-17] MEDS: Docusate 100mg/10ml Liq NG SCH ×2 (08:28→17:19)
[2018-02-17] MEDS: Triamcinolone 0.025% oint TOPIC SCH ×3 (08:28→17:19)
[2018-02-17] MEDS: Tums 500mg GT SCH ×3 (08:28→17:19)
[2018-02-17] MEDS: Pantoprazole Inj IVP SCH (08:28)
[2018-02-17] MEDS: Aspirin Baby 81mg NG SCH (08:28)
[2018-02-17] MEDS: Levothyroxine 125mcg tab NG SCH (08:28)
[2018-02-17] MEDS: levETIRAcetam 500mg/5ml Liquid NG SCH ×2 (08:28→23:11)
[2018-02-17] MEDS: Metoprolol Tartrate 12.5mg TAB NG SCH ×2 (08:29→21:00)
[2018-02-17 12:00] VITALS: BP 100/61
[2018-02-17 16:00] VITALS: BP 103/79
--- NOTE | 2018-02-17 16:55 | Pulmonology Progress Note ---
Assessment/Plan Assessment/Plan PROBLEM LIST: 1. Respiratory failure 2. Right perihilar infiltrate, healthcare-associated pneumonia. 3. MRSA sepsis and pneumonia 4. Acute kidney injury, likely dehydration. 5. Mild troponin elevation, likely demand ischemia. 6. History of recurrent aspiration pneumonia in the past. 7. Chronic subdural hematoma. 8. Mental retardation. 9. Hypothyroidism. 10. Chronic right bundle-branch block. 11. Acute on chronic CVA 12. Elevated D-dimer with negative Duplex and VQ TREATMENT PLAN: 1. F/U CXR AM, prn abg 2. BiPAP PRN and qHS 3. Titrate down FiO2 to keep SaO2 > 90%. 4. RTC and PRN HHN's, CPT-reordered 5. Mucinex and PRN Robitussin 6. Abx per ID, F/U Cx's 7. NPO, NGTF's, SHOP GIRL therapy, GI recs --> WILL NEED A PEG 8. Monitor volumes 9. Hep SQ for DVT Px 10. FC 11. prognosis guarded, low threshold to transfer back to ICU Subjective ROS Limited/Unobtainable: Yes Allergies: Coded Allergies: SULFA (SULFONAMIDE ANTIBIOTICS) (Verified Allergy, Unknown, 09/02/15) Subjective obtunded mild distress dry op NGT in place currently not being suctioned or nebs fever noted Objective Last 24 Hour Vital Signs Date Time Temp Pulse Resp B/P (MAP) Pulse Ox O2 Delivery O2 Flow Rate FiO2 02/17/18 16:00 4.0 02/17/18 16:00 84 02/17/18 12:58 88 20 98 Nasal Cannula 4.0 36 02/17/18 12:50 91 22 89 Room Air 21 02/17/18 12:00 79 02/17/18 12:00 4.0 02/17/18 12:00 97.1 89 22 100/61 (74) 99 97.1 02/17/18 09:00 Nasal Cannula 3.0 02/17/18 08:29 65 93/48 02/17/18 08:00 97.9 65 20 93/48 (63) 97 97.9 02/17/18 08:00 83 02/17/18 08:00 4.0 02/17/18 07:17 76 20 100 Nasal Cannula 4.0 36 02/17/18 07:10 Nasal Cannula 4.0 36 02/17/18 07:10 78 20 99 Nasal Cannula 4.0 36 02/17/18 07:10 99 Nasal Cannula 4.0 36 02/17/18 05:16 86 23 98 Full Face 35 02/17/18 04:00 4.0 02/17/18 04:00 98.0 89 19 100/57 (71) 93 98.0 02/17/18 03:37 89 02/17/18 03:07 82 22 98 Full Face 35 02/17/18 01:54 71 21 Bi-pap 40 02/17/18 00:59 80 21 99 Bi-pap 35 02/17/18 00:55 79 20 97 Full Face 35 02/17/18 00:52 79 20 98 Bi-pap 35 02/17/18 00:00 96.6 65 22 102/60 (74) 94 96.6 02/17/18 00:00 4.0 02/16/18 23:58 95 02/16/18 23:04 95 18 98 Full Face 35 02/16/18 21:18 87 97/53 02/16/18 21:00 Nasal Cannula 3.0 02/16/18 20:00 4.0 02/16/18 20:00 97.6 71 22 100/76 (84) 95 97.6 02/16/18 19:56 81 20 99 Nasal Cannula 4.0 36 02/16/18 19:51 Nasal Cannula 4.0 36 02/16/18 19:51 97 Nasal Cannula 4.0 36 02/16/18 19:49 83 20 97 Nasal Cannula 4.0 36 02/16/18 19:23 88 Intake and Output 02/16/18 02/17/18 19:00 07:00 Intake Total 27.5 ml 110 ml Output Total 500 ml Balance 27.5 ml -390 ml IV Total 27.5 ml 110 ml Output Urine Total 500 ml # Voids 4 General Appearance: cachetic HEENT: other - dry iop Respiratory/Chest: rhonchi Cardiovascular: tachycardia, murmur systolic, edema Abdomen: soft, non tender, no organomegaly 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: unresponsiveness Laboratory Tests 02/16/18 18:30: Vancomycin Level Trough 17.3H 02/17/18 06:05: White Blood Count 8.7, Red Blood Count 3.92L, Hemoglobin 12.5L, Hematocrit 37.9L , Mean Corpuscular Volume 97, Mean Corpuscular Hemoglobin 31.9H, Mean Corpuscular Hemoglobin Concent 33.0, Red Cell Distribution Width 13.8, Platelet Count 220, Mean Platelet Volume 7.9, Neutrophils (%) (Auto) 73.8, Lymphocytes (% ) (Auto) 13.5L, Monocytes (%) (Auto) 8.8, Eosinophils (%) (Auto) 2.3, Basophils (%) (Auto) 1.5, Sodium Level 141, Potassium Level 4.1, Chloride Level 102, Carbon Dioxide Level 31, Anion Gap 8, Blood Urea Nitrogen 18, Creatinine 1.0, Estimat Glomerular Filtration Rate > 60, Glucose Level 122H, Calcium Level 9.0 Current Medications Medications (Trade) Dose Ordered Sig/Eddy Route PRN Reason Start Time Stop Time Status Last Admin Dose Admin Acetaminophen (Tylenol) 650 mg Q6H PRN NG Mild Pain/Temp > 100.5 02/11/18 18:18 03/12/18 18:17 Albuterol/ Ipratropium (Albuterol/ Ipratropium) 3 ml Q6HRT HHN 02/12/18 19:00 02/17/18 18:59 02/17/18 12:50 Aspirin (ASA) 81 mg DAILY NG 02/12/18 09:00 03/14/18 08:59 02/17/18 08:28 Atorvastatin Calcium (Lipitor) 10 mg BEDTIME NG 02/11/18 21:00 03/09/18 20:59 02/16/18 21:18 Calcium Carbonate (Tums) 500 mg THREE TIMES A DAY GT 02/12/18 09:00 03/09/18 08:59 02/17/18 13:21 Chlorhexidine Gluconate (Tesha-Hex 2%) 1 applic DAILY@2000 TOPIC 02/11/18 20:00 03/11/18 19:59 02/16/18 21:18 Dextrose/Sodium Chloride 1,000 ml @ 75 mls/hr [id number] IV 02/18/18 20:00 03/20/18 19:59 Docusate Sodium (Colace) 100 mg TWICE A DAY NG 02/12/18 09:00 03/13/18 08:59 02/17/18 08:28 Guaifenesin (Robitussin) 100 mg Q4H PRN NG For Cough 02/13/18 13:45 03/14/18 18:14 Heparin Sodium (Porcine) (Heparin 5000 units/ml) 5,000 units EVERY 8 HOURS SUBQ 02/11/18 22:00 03/09/18 13:59 02/17/18 13:24 Levetiracetam (Keppra) 1,000 mg Q12HR NG 02/16/18 21:00 03/18/18 20:59 02/17/18 08:28 Levothyroxine Sodium (Synthroid) 125 mcg DAILY NG 02/17/18 09:00 03/19/18 08:59 02/17/18 08:28 Magnesium Hydroxide (Mom) 30 ml HSPRN PRN NG Constipation 02/11/18 21:00 03/09/18 20:59 Metoprolol Tartrate (Lopressor) 5 mg Q4H PRN IVP hr>130 02/11/18 18:19 03/09/18 18:18 Metoprolol Tartrate (Lopressor) 12.5 mg Q12HR NG 02/11/18 21:00 03/09/18 08:59 02/16/18 21:18 Olanzapine (ZyPREXA) 5 mg DAILY@2100 NG 02/11/18 21:00 03/12/18 20:59 02/16/18 21:18 Pantoprazole (Protonix) 40 mg DAILY IVP 02/12/18 09:00 03/09/18 09:20 02/17/18 08:28 Triamcinolone Acetonide (Kenalog 0.025% Oint) 1 applic THREE TIMES A DAY TOPIC 02/14/18 18:00 03/16/18 17:59 02/17/18 13:21 Vancomycin HCl (Vanco rx to dose) 1 ea DAILY PRN MISC PER PHARMACY 02/12/18 09:00 03/09/18 07:29 Vancomycin HCl 500 mg/Dextrose 110 ml @ 110 mls/hr Q12H IVPB 02/11/18 20:00 03/06/18 19:59 02/17/18 08:13 Emelia Hernandez DO Feb 17, 2018 16:55
--- NOTE | 2018-02-17 17:02 | General Progress Note ---
Assessment/Plan Status: progressing Assessment/Plan ASSESSMENT: 1. Shortness of breath, possibly secondary to pneumonia, possible sepsis. 2. Acute respiratory failure requiring BiPAP. 3. Acute kidney injury. 4. Elevated troponin, possibly from demand ischemia. 5. Developmental delay. 6. Dysphagia. 7. Psoriasis. 8. Acute left cerebellar infarction 9. MRSA bacteremia/Pneumonia/?endocarditis 10. epistaxis, secondary to trauma from NGT and suctioning PLAN: 1. Continue the patient on BiPAP support prn 2. Monitor vitals and I and O's. 3. advance NGT and start diet in cxr confirmed palcement 4. The patient was started on IV vancomycin and Zosyn. 5. To continue breathing treatment with frequent suctioning p.r.n. 6. Continue fpc medications. 7. Monitor troponin. 8. Heparin for DVT prophylaxis. 9. Protonix for GI prophylaxis. 10. Dr. Forrest, Pulmonary consult and Dr. Johnston, ID consult. 11. change aspirin to 81 mg daily 12. fu Echo and carotic us and venous duplex 13 gi consult appreciated, NGT for now repeat swallow eval later when more stable 14. NGT for meds and tube feeding 15. repeat Blood cultures to check for clearance of MRSA conitnue supportive care continue telemetry VQ scan negative for PE monitor labs ENT consult to evaluate for epistaxis, will check am cbc and INR/PTT PICC line placemetn for IV vanco for 19 more days for possible endocarditis PEG placement per Dr. Bryan possibly Monday I spoke with Dr. Mckenna from [facility] who agrees to PEG for consent can call [phone] Nini Baltazar director or for Emergency [phone] patient needs frequent suctioning Subjective Date patient seen: Feb 17, 2018 ROS Limited/Unobtainable: Yes Allergies: Coded Allergies: SULFA (SULFONAMIDE ANTIBIOTICS) (Verified Allergy, Unknown, 09/02/15) Objective Last 24 Hour Vital Signs Date Time Temp Pulse Resp B/P (MAP) Pulse Ox O2 Delivery O2 Flow Rate FiO2 02/17/18 16:00 4.0 02/17/18 16:00 84 02/17/18 12:58 88 20 98 Nasal Cannula 4.0 36 02/17/18 12:50 91 22 89 Room Air 21 02/17/18 12:00 79 02/17/18 12:00 4.0 02/17/18 12:00 97.1 89 22 100/61 (74) 99 97.1 02/17/18 09:00 Nasal Cannula 3.0 02/17/18 08:29 65 93/48 02/17/18 08:00 97.9 65 20 93/48 (63) 97 97.9 02/17/18 08:00 83 02/17/18 08:00 4.0 02/17/18 07:17 76 20 100 Nasal Cannula 4.0 36 02/17/18 07:10 Nasal Cannula 4.0 36 02/17/18 07:10 78 20 99 Nasal Cannula 4.0 36 02/17/18 07:10 99 Nasal Cannula 4.0 36 02/17/18 05:16 86 23 98 Full Face 35 02/17/18 04:00 4.0 02/17/18 04:00 98.0 89 19 100/57 (71) 93 98.0 02/17/18 03:37 89 02/17/18 03:07 82 22 98 Full Face 35 02/17/18 01:54 71 21 Bi-pap 40 02/17/18 00:59 80 21 99 Bi-pap 35 02/17/18 00:55 79 20 97 Full Face 35 02/17/18 00:52 79 20 98 Bi-pap 35 02/17/18 00:00 96.6 65 22 102/60 (74) 94 96.6 02/17/18 00:00 4.0 02/16/18 23:58 95 02/16/18 23:04 95 18 98 Full Face 35 02/16/18 21:18 87 97/53 02/16/18 21:00 Nasal Cannula 3.0 02/16/18 20:00 4.0 02/16/18 20:00 97.6 71 22 100/76 (84) 95 97.6 02/16/18 19:56 81 20 99 Nasal Cannula 4.0 36 02/16/18 19:51 Nasal Cannula 4.0 36 02/16/18 19:51 97 Nasal Cannula 4.0 36 02/16/18 19:49 83 20 97 Nasal Cannula 4.0 36 02/16/18 19:23 88 Intake and Output 02/16/18 02/17/18 19:00 07:00 Intake Total 27.5 ml 110 ml Output Total 500 ml Balance 27.5 ml -390 ml IV Total 27.5 ml 110 ml Output Urine Total 500 ml # Voids 4 Laboratory Tests 02/16/18 18:30: Vancomycin Level Trough 17.3H 02/17/18 06:05: White Blood Count 8.7, Red Blood Count 3.92L, Hemoglobin 12.5L, Hematocrit 37.9L , Mean Corpuscular Volume 97, Mean Corpuscular Hemoglobin 31.9H, Mean Corpuscular Hemoglobin Concent 33.0, Red Cell Distribution Width 13.8, Platelet Count 220, Mean Platelet Volume 7.9, Neutrophils (%) (Auto) 73.8, Lymphocytes (% ) (Auto) 13.5L, Monocytes (%) (Auto) 8.8, Eosinophils (%) (Auto) 2.3, Basophils (%) (Auto) 1.5, Sodium Level 141, Potassium Level 4.1, Chloride Level 102, Carbon Dioxide Level 31, Anion Gap 8, Blood Urea Nitrogen 18, Creatinine 1.0, Estimat Glomerular Filtration Rate > 60, Glucose Level 122H, Calcium Level 9.0 Height (Feet): 5 Height (Inches): 2.00 Weight (Pounds): 120 General Appearance: no apparent distress, alert EENT: PERRL/EOMI, pharynx normal Neck: non-tender, supple Cardiovascular: normal rate, regular rhythm, no gallop/murmur, no JVD Respiratory/Chest: rhonchi - bilaterally Abdomen: non tender, soft, no mass Extremities: non-tender, normal inspection, no calf tenderness Edema: no edema noted Arm (L), no edema noted Arm (R), no edema noted Leg (L), no edema noted Leg (R), no edema noted Pedal (L), no edema noted Pedal (R), no edema noted Generalized Neurologic: alert Skin: warm/dry Lymphatic: normal anterior cervical (L), normal anterior cervical (R), normal posterior cervical (L), normal posterior cervical (R), normal submandibular (L) , normal submandibular (R), normal supraclavicular (L), normal supraclavicular ( R), normal axillary (L), normal axillary (R), normal inguinal (L), normal inguinal (R), normal other Berdjis,Peiman MD Feb 17, 2018 17:02
[2018-02-17 20:00] VITALS: BP 97/53
[2018-02-17] MEDS: Dyna-Hex 2% Top Sol 2oz TOPIC SCH (23:11)
[2018-02-18] VITALS: BP 99/56
[2018-02-18] MEDS: Albuterol/Ipratropium 3ml neb HHN SCH ×5 (02:39→20:26)
[2018-02-18 04:00] VITALS: BP 114/87
[2018-02-18] MEDS: Heparin 5000 units/ml inj SUBQ SCH ×3 (06:25→23:03)
[2018-02-18 08:00] VITALS: BP 100/64
[2018-02-18 08:00] LABS: HEMATOCRIT 42.6 % (42.0-52.0); HEMOGLOBIN 13.7 G/DL (14.2-18.0); MEAN CORPUSCULAR VOLUME 98 FL (80-99); PLATELET COUNT 263 K/UL (150-450); RED BLOOD COUNT 4.36 M/UL (4.70-6.10); RED CELL DISTRIBUTION WIDTH 14.1 % (11.6-14.8); WHITE BLOOD COUNT 12.5 K/UL (4.8-10.8)
--- NOTE | 2018-02-18 08:05 | General Progress Note ---
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 - pneumonitis - failed swallow - h/o CHF Recommendations - NGT - Abx - Continue TF - PEG placement MONDAY at 0800 - optimize pulmonary parameters Subjective ROS Limited/Unobtainable: No Allergies: Coded Allergies: SULFA (SULFONAMIDE ANTIBIOTICS) (Verified Allergy, Unknown, 09/02/15) Objective Last 24 Hour Vital Signs Date Time Temp Pulse Resp B/P (MAP) Pulse Ox O2 Delivery O2 Flow Rate FiO2 02/18/18 07:28 106 20 98 Nasal Cannula 4.0 36 02/18/18 07:21 104 20 94 Bi-pap 4.0 35 02/18/18 07:20 Nasal Cannula 4.0 36 02/18/18 07:20 94 Nasal Cannula 4.0 36 02/18/18 04:00 97.3 76 24 114/87 (96) 92 97.3 02/18/18 04:00 35 02/18/18 04:00 92 02/18/18 02:47 105 20 97 Bi-pap 35 02/18/18 02:40 103 20 95 Bi-pap 4.0 35 02/18/18 01:02 83 26 99 Facial 35 02/18/18 00:00 110 02/18/18 00:00 97.5 106 22 99/56 (70) 96 97.5 02/18/18 00:00 35 02/17/18 23:16 84 23 99 Facial 35 02/17/18 23:15 80 20 98 Bi-pap 35 02/17/18 23:03 101 20 99 Bi-pap 35 02/17/18 21:00 Nasal Cannula 3.0 02/17/18 21:00 108 97/53 02/17/18 20:00 110 02/17/18 20:00 97.9 108 25 97/53 (68) 90 97.9 02/17/18 20:00 4.0 02/17/18 19:21 92 20 97 Nasal Cannula 4.0 36 02/17/18 19:05 95 Nasal Cannula 4.0 36 02/17/18 19:05 Nasal Cannula 4.0 36 02/17/18 19:04 92 20 94 Room Air 21 02/17/18 16:00 97.5 91 20 103/79 (87) 98 97.5 02/17/18 16:00 4.0 02/17/18 16:00 84 02/17/18 12:58 88 20 98 Nasal Cannula 4.0 36 02/17/18 12:50 91 22 89 Room Air 21 02/17/18 12:00 79 02/17/18 12:00 4.0 02/17/18 12:00 97.1 89 22 100/61 (74) 99 97.1 02/17/18 09:00 Nasal Cannula 3.0 02/17/18 08:29 65 93/48 Intake and Output 02/17/18 02/18/18 19:00 07:00 Output Total 400 ml Balance -400 ml Output Urine Total 400 ml # Voids 2 Laboratory Tests 02/18/18 07:05: White Blood Count [Pending], Red Blood Count [Pending], Hemoglobin [Pending], Hematocrit [Pending], Mean Corpuscular Volume [Pending], Mean Corpuscular Hemoglobin [Pending], Mean Corpuscular Hemoglobin Concent [Pending], Red Cell Distribution Width [Pending], Platelet Count [Pending], Mean Platelet Volume [ Pending], Neutrophils (%) (Auto) [Pending], Lymphocytes (%) (Auto) [Pending], Monocytes (%) (Auto) [Pending], Eosinophils (%) (Auto) [Pending], Basophils (%) (Auto) [Pending], Sodium Level [Pending], Potassium Level [Pending], Chloride Level [Pending], Carbon Dioxide Level [Pending], Blood Urea Nitrogen [Pending], Creatinine [Pending], Estimat Glomerular Filtration Rate [Pending], Glucose Level [Pending], Calcium Level [Pending], Magnesium Level [Pending], Pro-B-Type Natriuretic Peptide [Pending] Height (Feet): 5 Height (Inches): 2.00 Weight (Pounds): 118 General Appearance: no apparent distress EENT: normal ENT inspection Neck: supple Cardiovascular: normal rate Respiratory/Chest: decreased breath sounds Abdomen: normal bowel sounds, non tender, soft Extremities: non-tender Chapin Berger MD Feb 18, 2018 08:05
--- NOTE | 2018-02-18 08:34 | Diagnostic Imaging Report ---
INDICATION: Cough COMPARISON: Chest x-ray dated 02/15/18 FINDINGS: Single frontal view demonstrates a prominent heart size. Nasogastric tube in gastric cavity. Removal of endotracheal tube. Patchy opacity in bilateral lower lobes, right greater left, increased from prior. No pleural effusions. The visualized osseous structures are within normal limits. IMPRESSION: Nasogastric tube in gastric cavity. Removal of endotracheal tube. Patchy opacity in bilateral lower lobes, right greater left, increased from prior.
[2018-02-18 08:38] LABS: ANION GAP 8 mmol/L (5-15); BLOOD UREA NITROGEN 25 mg/dL (7-18); CALCIUM 9.6 MG/DL (8.5-10.1); CARBON DIOXIDE 32 MMOL/L (21-32); CHLORIDE 103 MMOL/L (98-107); CREATININE 1.1 MG/DL (0.55-1.30); POTASSIUM 4.3 MMOL/L (3.5-5.1); SODIUM 143 MMOL/L (136-145)
[2018-02-18] MEDS: Levothyroxine 125mcg tab NG SCH (08:58)
[2018-02-18] MEDS: Aspirin Baby 81mg NG SCH (08:58)
[2018-02-18] MEDS: Docusate 100mg/10ml Liq NG SCH ×2 (08:58→18:31)
[2018-02-18] MEDS: Vancomycin 500 MG in D5W 110 ML IVPB SCH ×2 (08:58→20:36)
[2018-02-18] MEDS: Tums 500mg GT SCH ×3 (08:58→18:30)
[2018-02-18] MEDS: Pantoprazole Inj IVP SCH (08:58)
[2018-02-18] MEDS: levETIRAcetam 500mg/5ml Liquid NG SCH ×2 (08:58→20:38)
[2018-02-18] MEDS: Metoprolol Tartrate 12.5mg TAB NG SCH ×2 (09:00→20:37)
[2018-02-18] MEDS: Triamcinolone 0.025% oint TOPIC SCH ×3 (09:07→18:00)
--- NOTE | 2018-02-18 10:17 | Infectious Diseases Prog Note ---
Assessment/Plan Assessment/Plan A: 1. pneumonia with MRSA & E. coli 2. respiratory failure 3. Acute lacunar CVA 4. mental retardation 5. staph aureus sepsis r/o endocarditis 6. Leukocytosis & Tachycardia today P 1. continue vancomycin iv, X 16 days 2. Start on Meropenem Subjective ROS Limited/Unobtainable: Yes Allergies: Coded Allergies: SULFA (SULFONAMIDE ANTIBIOTICS) (Verified Allergy, Unknown, 09/02/15) Objective Vital Signs Last 24 Hour Vital Signs Date Time Temp Pulse Resp B/P (MAP) Pulse Ox O2 Delivery O2 Flow Rate FiO2 02/18/18 09:00 114 100/64 02/18/18 08:00 97.0 114 21 100/64 (76) 94 97.0 02/18/18 07:28 106 20 98 Nasal Cannula 4.0 36 02/18/18 07:21 104 20 94 Bi-pap 4.0 35 02/18/18 07:20 Nasal Cannula 4.0 36 02/18/18 07:20 94 Nasal Cannula 4.0 36 02/18/18 04:00 97.3 76 24 114/87 (96) 92 97.3 02/18/18 04:00 35 02/18/18 04:00 92 02/18/18 02:47 105 20 97 Bi-pap 35 02/18/18 02:40 103 20 95 Bi-pap 4.0 35 02/18/18 01:02 83 26 99 Facial 35 02/18/18 00:00 110 02/18/18 00:00 97.5 106 22 99/56 (70) 96 97.5 02/18/18 00:00 35 02/17/18 23:16 84 23 99 Facial 35 02/17/18 23:15 80 20 98 Bi-pap 35 02/17/18 23:03 101 20 99 Bi-pap 35 02/17/18 21:00 Nasal Cannula 3.0 02/17/18 21:00 108 97/53 02/17/18 20:00 110 02/17/18 20:00 97.9 108 25 97/53 (68) 90 97.9 02/17/18 20:00 4.0 02/17/18 19:21 92 20 97 Nasal Cannula 4.0 36 02/17/18 19:05 95 Nasal Cannula 4.0 36 02/17/18 19:05 Nasal Cannula 4.0 36 02/17/18 19:04 92 20 94 Room Air 21 02/17/18 16:00 97.5 91 20 103/79 (87) 98 97.5 02/17/18 16:00 4.0 02/17/18 16:00 84 02/17/18 12:58 88 20 98 Nasal Cannula 4.0 36 02/17/18 12:50 91 22 89 Room Air 21 02/17/18 12:00 79 02/17/18 12:00 4.0 02/17/18 12:00 97.1 89 22 100/61 (74) 99 97.1 Height (Feet): 5 Height (Inches): 2.00 Weight (Pounds): 118 General Appearance: no acute distress HEENT: mucous membranes moist Respiratory/Chest: lungs clear Cardiovascular: tachycardia Abdomen: soft, non tender, other - NG tube feeding Extremities: no edema 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: alert, aphasia Laboratory Tests Test 02/18/18 07:05 02/18/18 08:00 White Blood Count 12.5 K/UL (4.8-10.8) H Red Blood Count 4.36 M/UL (4.70-6.10) L Hemoglobin 13.7 G/DL (14.2-18.0) L Hematocrit 42.6 % (42.0-52.0) Mean Corpuscular Volume 98 FL (80-99) Mean Corpuscular Hemoglobin 31.4 PG (27.0-31.0) H Mean Corpuscular Hemoglobin Concent 32.2 G/DL (32.0-36.0) Red Cell Distribution Width 14.1 % (11.6-14.8) Platelet Count 263 K/UL (150-450) Mean Platelet Volume 8.3 FL (6.5-10.1) Neutrophils (%) (Auto) % (45.0-75.0) Lymphocytes (%) (Auto) % (20.0-45.0) Monocytes (%) (Auto) % (1.0-10.0) Eosinophils (%) (Auto) % (0.0-3.0) Basophils (%) (Auto) % (0.0-2.0) Differential Total Cells Counted 100 Neutrophils % (Manual) 81 % (45-75) H Lymphocytes % (Manual) 14 % (20-45) L Monocytes % (Manual) 4 % (1-10) Eosinophils % (Manual) 1 % (0-3) Basophils % (Manual) 0 % (0-2) Band Neutrophils 0 % (0-8) Platelet Estimate Adequate Platelet Morphology Normal Red Blood Cell Morphology Normal Sodium Level 143 MMOL/L (136-145) Potassium Level 4.3 MMOL/L (3.5-5.1) Chloride Level 103 MMOL/L (98-107) Carbon Dioxide Level 32 MMOL/L (21-32) Anion Gap 8 mmol/L (5-15) Blood Urea Nitrogen 25 mg/dL (7-18) H Creatinine 1.1 MG/DL (0.55-1.30) Estimat Glomerular Filtration Rate > 60 mL/min (>60) Glucose Level 117 MG/DL (74-106) H Calcium Level 9.6 MG/DL (8.5-10.1) Magnesium Level 2.4 MG/DL (1.8-2.4) Pro-B-Type Natriuretic Peptide 1615 pg/mL (0-125) H Arterial Blood pH 7.516 (7.350-7.450) Arterial Blood Partial Pressure CO2 39.0 mmHg (35.0-45.0) Arterial Blood Partial Pressure O2 72.5 mmHg (75.0-100.0) L Arterial Blood HCO3 30.8 mmol/L (22.0-26.0) H Arterial Blood Oxygen Saturation 94.5 % (95-100) L Arterial Blood Base Excess 7.4 (-2-2) H Kashif Test Positive Current Medications Medications (Trade) Dose Ordered Sig/Eddy Route PRN Reason Start Time Stop Time Status Last Admin Dose Admin Acetaminophen (Tylenol) 650 mg Q6H PRN NG Mild Pain/Temp > 100.5 02/11/18 18:18 03/12/18 18:17 Albuterol/ Ipratropium (Albuterol/ Ipratropium) 3 ml Q4HRT HHN 02/17/18 19:00 02/22/18 18:59 02/18/18 07:38 Aspirin (ASA) 81 mg DAILY NG 02/12/18 09:00 03/14/18 08:59 02/18/18 08:58 Atorvastatin Calcium (Lipitor) 10 mg BEDTIME NG 02/11/18 21:00 03/09/18 20:59 02/17/18 23:12 Calcium Carbonate (Tums) 500 mg THREE TIMES A DAY GT 02/12/18 09:00 03/09/18 08:59 02/18/18 08:58 Chlorhexidine Gluconate (Tesha-Hex 2%) 1 applic DAILY@2000 TOPIC 02/11/18 20:00 03/11/18 19:59 02/17/18 23:11 Dextrose/Sodium Chloride 1,000 ml @ 75 mls/hr [id number] IV 02/18/18 20:00 03/20/18 19:59 Docusate Sodium (Colace) 100 mg TWICE A DAY NG 02/12/18 09:00 03/13/18 08:59 02/18/18 08:58 Guaifenesin (Robitussin) 100 mg Q4H PRN NG For Cough 02/13/18 13:45 03/14/18 18:14 Heparin Sodium (Porcine) (Heparin 5000 units/ml) 5,000 units EVERY 8 HOURS SUBQ 02/11/18 22:00 03/09/18 13:59 02/18/18 06:25 Levetiracetam (Keppra) 1,000 mg Q12HR NG 02/16/18 21:00 03/18/18 20:59 02/18/18 08:58 Levothyroxine Sodium (Synthroid) 125 mcg DAILY NG 02/17/18 09:00 03/19/18 08:59 02/18/18 08:58 Magnesium Hydroxide (Mom) 30 ml HSPRN PRN NG Constipation 02/11/18 21:00 03/09/18 20:59 Metoprolol Tartrate (Lopressor) 5 mg Q4H PRN IVP hr>130 02/11/18 18:19 03/09/18 18:18 Metoprolol Tartrate (Lopressor) 12.5 mg Q12HR NG 02/11/18 21:00 03/09/18 08:59 02/16/18 21:18 Olanzapine (ZyPREXA) 5 mg DAILY@2100 NG 02/11/18 21:00 03/12/18 20:59 02/17/18 23:12 Pantoprazole (Protonix) 40 mg DAILY IVP 02/12/18 09:00 03/09/18 09:20 02/18/18 08:58 Triamcinolone Acetonide (Kenalog 0.025% Oint) 1 applic THREE TIMES A DAY TOPIC 02/14/18 18:00 03/16/18 17:59 02/18/18 09:07 Vancomycin HCl (Vanco rx to dose) 1 ea DAILY PRN MISC PER PHARMACY 02/12/18 09:00 03/09/18 07:29 Vancomycin HCl 500 mg/Dextrose 110 ml @ 110 mls/hr Q12H IVPB 02/11/18 20:00 03/06/18 19:59 02/18/18 08:58 Wilbur Escudero MD Feb 18, 2018 10:17
[2018-02-18] MEDS: Meropenem 1 GM in NS 55 ML IVPB SCH ×2 (11:22→20:36)
--- NOTE | 2018-02-18 11:56 | Cardiology Progress Note ---
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 pneumonia arf hs of svt chronic subdural hematoma eczema echo noted normal lv systolic function bp seems fine is still afebrile repeat blood cx neg more than 72 hours no svt remains on bb hemodynamically stable at the moment wbc up awiats peg iv abx Subjective ROS Limited/Unobtainable: Yes Subjective appear calm and dry no sig cough during my evaluation Objective Last 24 Hour Vital Signs Date Time Temp Pulse Resp B/P (MAP) Pulse Ox O2 Delivery O2 Flow Rate FiO2 02/18/18 11:08 103 22 97 Nasal Cannula 4.0 36 02/18/18 11:01 101 18 96 Nasal Cannula 4.0 36 02/18/18 09:00 Nasal Cannula 3.0 02/18/18 09:00 114 100/64 02/18/18 08:00 3.0 02/18/18 08:00 114 02/18/18 08:00 97.0 114 21 100/64 (76) 94 97.0 02/18/18 07:28 106 20 98 Nasal Cannula 4.0 36 02/18/18 07:21 104 20 94 Bi-pap 4.0 35 02/18/18 07:20 Nasal Cannula 4.0 36 02/18/18 07:20 94 Nasal Cannula 4.0 36 02/18/18 04:00 97.3 76 24 114/87 (96) 92 97.3 02/18/18 04:00 35 02/18/18 04:00 92 02/18/18 02:47 105 20 97 Bi-pap 35 02/18/18 02:40 103 20 95 Bi-pap 4.0 35 02/18/18 01:02 83 26 99 Facial 35 02/18/18 00:00 110 02/18/18 00:00 97.5 106 22 99/56 (70) 96 97.5 02/18/18 00:00 35 02/17/18 23:16 84 23 99 Facial 35 02/17/18 23:15 80 20 98 Bi-pap 35 02/17/18 23:03 101 20 99 Bi-pap 35 02/17/18 21:00 Nasal Cannula 3.0 02/17/18 21:00 108 97/53 02/17/18 20:00 110 02/17/18 20:00 97.9 108 25 97/53 (68) 90 97.9 02/17/18 20:00 4.0 02/17/18 19:21 92 20 97 Nasal Cannula 4.0 36 02/17/18 19:05 95 Nasal Cannula 4.0 36 02/17/18 19:05 Nasal Cannula 4.0 36 02/17/18 19:04 92 20 94 Room Air 21 02/17/18 16:00 97.5 91 20 103/79 (87) 98 97.5 02/17/18 16:00 4.0 02/17/18 16:00 84 02/17/18 12:58 88 20 98 Nasal Cannula 4.0 36 02/17/18 12:50 91 22 89 Room Air 21 02/17/18 12:00 79 02/17/18 12:00 4.0 02/17/18 12:00 97.1 89 22 100/61 (74) 99 97.1 General Appearance: no apparent distress Respiratory/Chest: rhonchi - bilaterally Abdomen: normal bowel sounds, non tender, soft Extremities: no swelling Intake and Output 02/17/18 02/18/18 19:00 07:00 Output Total 400 ml Balance -400 ml Output Urine Total 400 ml # Voids 2 Laboratory Tests Test 02/18/18 07:05 02/18/18 08:00 White Blood Count 12.5 K/UL (4.8-10.8) H Red Blood Count 4.36 M/UL (4.70-6.10) L Hemoglobin 13.7 G/DL (14.2-18.0) L Hematocrit 42.6 % (42.0-52.0) Mean Corpuscular Volume 98 FL (80-99) Mean Corpuscular Hemoglobin 31.4 PG (27.0-31.0) H Mean Corpuscular Hemoglobin Concent 32.2 G/DL (32.0-36.0) Red Cell Distribution Width 14.1 % (11.6-14.8) Platelet Count 263 K/UL (150-450) Mean Platelet Volume 8.3 FL (6.5-10.1) Neutrophils (%) (Auto) % (45.0-75.0) Lymphocytes (%) (Auto) % (20.0-45.0) Monocytes (%) (Auto) % (1.0-10.0) Eosinophils (%) (Auto) % (0.0-3.0) Basophils (%) (Auto) % (0.0-2.0) Differential Total Cells Counted 100 Neutrophils % (Manual) 81 % (45-75) H Lymphocytes % (Manual) 14 % (20-45) L Monocytes % (Manual) 4 % (1-10) Eosinophils % (Manual) 1 % (0-3) Basophils % (Manual) 0 % (0-2) Band Neutrophils 0 % (0-8) Platelet Estimate Adequate Platelet Morphology Normal Red Blood Cell Morphology Normal Sodium Level 143 MMOL/L (136-145) Potassium Level 4.3 MMOL/L (3.5-5.1) Chloride Level 103 MMOL/L (98-107) Carbon Dioxide Level 32 MMOL/L (21-32) Anion Gap 8 mmol/L (5-15) Blood Urea Nitrogen 25 mg/dL (7-18) H Creatinine 1.1 MG/DL (0.55-1.30) Estimat Glomerular Filtration Rate > 60 mL/min (>60) Glucose Level 117 MG/DL (74-106) H Calcium Level 9.6 MG/DL (8.5-10.1) Magnesium Level 2.4 MG/DL (1.8-2.4) Pro-B-Type Natriuretic Peptide 1615 pg/mL (0-125) H Arterial Blood pH 7.516 (7.350-7.450) Arterial Blood Partial Pressure CO2 39.0 mmHg (35.0-45.0) Arterial Blood Partial Pressure O2 72.5 mmHg (75.0-100.0) L Arterial Blood HCO3 30.8 mmol/L (22.0-26.0) H Arterial Blood Oxygen Saturation 94.5 % (95-100) L Arterial Blood Base Excess 7.4 (-2-2) H Kashif Test Positive Amos Sue MD Feb 18, 2018 11:56
[2018-02-18 12:00] VITALS: BP 103/53
--- NOTE | 2018-02-18 15:57 | Pulmonology Progress Note ---
Assessment/Plan Assessment/Plan PROBLEM LIST: 1. Respiratory failure 2. Right perihilar infiltrate, healthcare-associated pneumonia. 3. MRSA sepsis and pneumonia 4. Acute kidney injury, likely dehydration. 5. Mild troponin elevation, likely demand ischemia. 6. History of recurrent aspiration pneumonia in the past. 7. Chronic subdural hematoma. 8. Mental retardation. 9. Hypothyroidism. 10. Chronic right bundle-branch block. 11. Acute on chronic CVA 12. Elevated D-dimer with negative Duplex and VQ TREATMENT PLAN: 1. F/U CXR AM, prn abg again in 2. BiPAP contiguous 3. Titrate down FiO2 to keep SaO2 > 90%. 4. RTC and PRN HHN's, CPT 5. Mucinex and PRN Robitussin 6. Abx per ID, F/U Cx's 7. NPO, NGTF's, [employer] therapy, GI recs --> WILL NEED A PEG 8. Monitor volumes 9. Hep SQ for DVT Px 10. FC 11. prognosis guarded, low threshold to transfer back to ICU Subjective ROS Limited/Unobtainable: Yes Allergies: Coded Allergies: SULFA (SULFONAMIDE ANTIBIOTICS) (Verified Allergy, Unknown, 09/02/15) Subjective eyes open moderate tachypnea noted off bipap at this time dry op NGT in place on suctioned or nebs fever noted CXR iwth CM and CHF on Abx Objective Last 24 Hour Vital Signs Date Time Temp Pulse Resp B/P (MAP) Pulse Ox O2 Delivery O2 Flow Rate FiO2 02/18/18 15:26 100 20 96 Nasal Cannula 4.0 36 02/18/18 15:21 98 24 93 Nasal Cannula 4.0 36 02/18/18 12:00 97.5 105 20 103/53 (70) 95 97.5 02/18/18 12:00 4.0 02/18/18 12:00 105 02/18/18 11:08 103 22 97 Nasal Cannula 4.0 36 02/18/18 11:01 101 18 96 Nasal Cannula 4.0 36 02/18/18 09:00 Nasal Cannula 3.0 02/18/18 09:00 114 100/64 02/18/18 08:00 3.0 02/18/18 08:00 114 02/18/18 08:00 97.0 114 21 100/64 (76) 94 97.0 02/18/18 07:28 106 20 98 Nasal Cannula 4.0 36 02/18/18 07:21 104 20 94 Bi-pap 4.0 35 02/18/18 07:20 Nasal Cannula 4.0 36 02/18/18 07:20 94 Nasal Cannula 4.0 36 02/18/18 04:00 97.3 76 24 114/87 (96) 92 97.3 02/18/18 04:00 35 02/18/18 04:00 92 02/18/18 02:47 105 20 97 Bi-pap 35 02/18/18 02:40 103 20 95 Bi-pap 4.0 35 02/18/18 01:02 83 26 99 Facial 35 02/18/18 00:00 110 02/18/18 00:00 97.5 106 22 99/56 (70) 96 97.5 02/18/18 00:00 35 02/17/18 23:16 84 23 99 Facial 35 02/17/18 23:15 80 20 98 Bi-pap 35 02/17/18 23:03 101 20 99 Bi-pap 35 02/17/18 21:00 Nasal Cannula 3.0 02/17/18 21:00 108 97/53 02/17/18 20:00 110 02/17/18 20:00 97.9 108 25 97/53 (68) 90 97.9 02/17/18 20:00 4.0 02/17/18 19:21 92 20 97 Nasal Cannula 4.0 36 02/17/18 19:05 95 Nasal Cannula 4.0 36 02/17/18 19:05 Nasal Cannula 4.0 36 02/17/18 19:04 92 20 94 Room Air 21 02/17/18 16:00 97.5 91 20 103/79 (87) 98 97.5 02/17/18 16:00 4.0 02/17/18 16:00 84 Intake and Output 02/17/18 02/18/18 19:00 07:00 Output Total 400 ml Balance -400 ml Output Urine Total 400 ml # Voids 2 General Appearance: cachetic HEENT: other - ddry Respiratory/Chest: respiratory distress, rhonchi Cardiovascular: tachycardia Abdomen: soft, non tender, no organomegaly 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: unresponsiveness Laboratory Tests 02/18/18 07:05: White Blood Count 12.5H, Red Blood Count 4.36L, Hemoglobin 13.7L, Hematocrit 42.6, Mean Corpuscular Volume 98, Mean Corpuscular Hemoglobin 31.4H, Mean Corpuscular Hemoglobin Concent 32.2, Red Cell Distribution Width 14.1, Platelet Count 263, Mean Platelet Volume 8.3, Neutrophils (%) (Auto) , Lymphocytes (%) ( Auto) , Monocytes (%) (Auto) , Eosinophils (%) (Auto) , Basophils (%) (Auto) , Differential Total Cells Counted 100, Neutrophils % (Manual) 81H, Lymphocytes % (Manual) 14L, Monocytes % (Manual) 4, Eosinophils % (Manual) 1, Basophils % ( Manual) 0, Band Neutrophils 0, Platelet Estimate Adequate, Platelet Morphology Normal, Red Blood Cell Morphology Normal, Sodium Level 143, Potassium Level 4.3 , Chloride Level 103, Carbon Dioxide Level 32, Anion Gap 8, Blood Urea Nitrogen 25H, Creatinine 1.1, Estimat Glomerular Filtration Rate > 60, Glucose Level 117H , Calcium Level 9.6, Magnesium Level 2.4, Pro-B-Type Natriuretic Peptide 1615H 02/18/18 08:00: Arterial Blood pH 7.516H, Arterial Blood Partial Pressure CO2 39.0, Arterial Blood Partial Pressure O2 72.5L, Arterial Blood HCO3 30.8H, Arterial Blood Oxygen Saturation 94.5L, Arterial Blood Base Excess 7.4H, Kashif Test Positive Current Medications Medications (Trade) Dose Ordered Sig/Eddy Route PRN Reason Start Time Stop Time Status Last Admin Dose Admin Acetaminophen (Tylenol) 650 mg Q6H PRN NG Mild Pain/Temp > 100.5 02/11/18 18:18 03/12/18 18:17 Albuterol/ Ipratropium (Albuterol/ Ipratropium) 3 ml Q4HRT HHN 02/17/18 19:00 02/22/18 18:59 02/18/18 15:25 Aspirin (ASA) 81 mg DAILY NG 02/12/18 09:00 03/14/18 08:59 02/18/18 08:58 Atorvastatin Calcium (Lipitor) 10 mg BEDTIME NG 02/11/18 21:00 03/09/18 20:59 02/17/18 23:12 Calcium Carbonate (Tums) 500 mg THREE TIMES A DAY GT 02/12/18 09:00 03/09/18 08:59 02/18/18 13:05 Chlorhexidine Gluconate (Tesha-Hex 2%) 1 applic DAILY@2000 TOPIC 02/11/18 20:00 03/11/18 19:59 02/17/18 23:11 Dextrose/Sodium Chloride 1,000 ml @ 75 mls/hr [id number] IV 02/18/18 20:00 03/20/18 19:59 Docusate Sodium (Colace) 100 mg TWICE A DAY NG 02/12/18 09:00 03/13/18 08:59 02/18/18 08:58 Guaifenesin (Robitussin) 100 mg Q4H PRN NG For Cough 02/13/18 13:45 03/14/18 18:14 Heparin Sodium (Porcine) (Heparin 5000 units/ml) 5,000 units EVERY 8 HOURS SUBQ 02/11/18 22:00 03/09/18 13:59 02/18/18 13:10 Levetiracetam (Keppra) 1,000 mg Q12HR NG 02/16/18 21:00 03/18/18 20:59 02/18/18 08:58 Levothyroxine Sodium (Synthroid) 125 mcg DAILY NG 02/17/18 09:00 03/19/18 08:59 02/18/18 08:58 Magnesium Hydroxide (Mom) 30 ml HSPRN PRN NG Constipation 02/11/18 21:00 03/09/18 20:59 Meropenem 1 gm/ Sodium Chloride 55 ml @ 110 mls/hr Q8H IVPB 02/18/18 11:00 02/23/18 10:59 02/18/18 11:22 Metoprolol Tartrate (Lopressor) 5 mg Q4H PRN IVP hr>130 02/11/18 18:19 03/09/18 18:18 Metoprolol Tartrate (Lopressor) 12.5 mg Q12HR NG 02/11/18 21:00 03/09/18 08:59 02/16/18 21:18 Olanzapine (ZyPREXA) 5 mg DAILY@2100 NG 02/11/18 21:00 03/12/18 20:59 02/17/18 23:12 Pantoprazole (Protonix) 40 mg DAILY IVP 02/12/18 09:00 03/09/18 09:20 02/18/18 08:58 Triamcinolone Acetonide (Kenalog 0.025% Oint) 1 applic THREE TIMES A DAY TOPIC 02/14/18 18:00 03/16/18 17:59 02/18/18 13:05 Vancomycin HCl (Vanco rx to dose) 1 ea DAILY PRN MISC PER PHARMACY 02/12/18 09:00 03/09/18 07:29 Vancomycin HCl 500 mg/Dextrose 110 ml @ 110 mls/hr Q12H IVPB 02/11/18 20:00 03/06/18 19:59 02/18/18 08:58 Emelia Hernandez DO Feb 18, 2018 15:57
[2018-02-18 16:00] VITALS: BP 93/51
[2018-02-18 20:00] VITALS: BP 125/75
[2018-02-18] MEDS: D5 1/2NS 1,000 ML IV SCH (20:00)
[2018-02-18] MEDS: Dyna-Hex 2% Top Sol 2oz TOPIC SCH (20:38)
--- NOTE | 2018-02-18 21:40 | General Progress Note ---
Assessment/Plan Status: progressing Assessment/Plan ASSESSMENT: 1. Shortness of breath, possibly secondary to pneumonia, possible sepsis. 2. Acute respiratory failure requiring BiPAP. 3. Acute kidney injury. 4. Elevated troponin, possibly from demand ischemia. 5. Developmental delay. 6. Dysphagia. 7. Psoriasis. 8. Acute left cerebellar infarction 9. MRSA bacteremia/Pneumonia/?endocarditis 10. epistaxis, secondary to trauma from NGT and suctioning PLAN: 1. Continue the patient on BiPAP support prn 2. Monitor vitals and I and O's. 3. advance NGT and start diet in cxr confirmed palcement 4. The patient was started on IV vancomycin and Zosyn. 5. To continue breathing treatment with frequent suctioning p.r.n. 6. Continue chcf medications. 7. Monitor troponin. 8. Heparin for DVT prophylaxis. 9. Protonix for GI prophylaxis. 10. Dr. Forrest, Pulmonary consult and Dr. Johnston, ID consult. 11. change aspirin to 81 mg daily 12. fu Echo and carotic us and venous duplex 13 gi consult appreciated, NGT for now repeat swallow eval later when more stable 14. NGT for meds and tube feeding 15. repeat Blood cultures to check for clearance of MRSA conitnue supportive care continue telemetry VQ scan negative for PE monitor labs ENT consult to evaluate for epistaxis, will check am cbc and INR/PTT PICC line placemetn for IV vanco for 19 more days for possible endocarditis PEG placement per Dr. Bryan Monday morning I spoke with Dr. Mckenna from [facility] who agrees to PEG for consent can call [phone] Nini Baltazar director or for Emergency [phone] patient needs frequent suctioning NPO after midnight for PEG placement PICC line placement prior to dc to LTAC, needs groin line removed once PICC line is placed Subjective Date patient seen: Feb 18, 2018 ROS Limited/Unobtainable: Yes Allergies: Coded Allergies: SULFA (SULFONAMIDE ANTIBIOTICS) (Verified Allergy, Unknown, 09/02/15) Objective Last 24 Hour Vital Signs Date Time Temp Pulse Resp B/P (MAP) Pulse Ox O2 Delivery O2 Flow Rate FiO2 02/18/18 20:46 108 32 94 Bi-pap 50 02/18/18 20:37 111 125/75 10/14/18 20:29 94 Bi-pap 50 02/18/18 20:29 Bi-pap 50 02/18/18 20:26 103 28 92 Bi-pap 50 02/18/18 16:38 101 36 98 Facial 35 02/18/18 16:00 97.7 110 20 93/51 (65) 89 97.7 02/18/18 16:00 4.0 02/18/18 16:00 110 02/18/18 15:26 100 20 96 Nasal Cannula 4.0 36 02/18/18 15:21 98 24 93 Nasal Cannula 4.0 36 02/18/18 12:00 97.5 105 20 103/53 (70) 95 97.5 02/18/18 12:00 4.0 02/18/18 12:00 105 02/18/18 11:08 103 22 97 Nasal Cannula 4.0 36 02/18/18 11:01 101 18 96 Nasal Cannula 4.0 36 02/18/18 09:00 Nasal Cannula 3.0 02/18/18 09:00 114 100/64 02/18/18 08:00 3.0 02/18/18 08:00 114 02/18/18 08:00 97.0 114 21 100/64 (76) 94 97.0 02/18/18 07:28 106 20 98 Nasal Cannula 4.0 36 02/18/18 07:21 104 20 94 Bi-pap 4.0 35 02/18/18 07:20 Nasal Cannula 4.0 36 02/18/18 07:20 94 Nasal Cannula 4.0 36 02/18/18 04:00 97.3 76 24 114/87 (96) 92 97.3 02/18/18 04:00 35 02/18/18 04:00 92 02/18/18 02:47 105 20 97 Bi-pap 35 02/18/18 02:40 103 20 95 Bi-pap 4.0 35 02/18/18 01:02 83 26 99 Facial 35 02/18/18 00:00 110 02/18/18 00:00 97.5 106 22 99/56 (70) 96 97.5 02/18/18 00:00 35 02/17/18 23:16 84 23 99 Facial 35 02/17/18 23:15 80 20 98 Bi-pap 35 02/17/18 23:03 101 20 99 Bi-pap 35 Intake and Output 10/13/18 10/14/18 19:00 07:00 Output Total 400 ml Balance -400 ml Output Urine Total 400 ml # Voids 2 Laboratory Tests 02/18/18 07:05: White Blood Count 12.5H, Red Blood Count 4.36L, Hemoglobin 13.7L, Hematocrit 42.6, Mean Corpuscular Volume 98, Mean Corpuscular Hemoglobin 31.4H, Mean Corpuscular Hemoglobin Concent 32.2, Red Cell Distribution Width 14.1, Platelet Count 263, Mean Platelet Volume 8.3, Neutrophils (%) (Auto) , Lymphocytes (%) ( Auto) , Monocytes (%) (Auto) , Eosinophils (%) (Auto) , Basophils (%) (Auto) , Differential Total Cells Counted 100, Neutrophils % (Manual) 81H, Lymphocytes % (Manual) 14L, Monocytes % (Manual) 4, Eosinophils % (Manual) 1, Basophils % ( Manual) 0, Band Neutrophils 0, Platelet Estimate Adequate, Platelet Morphology Normal, Red Blood Cell Morphology Normal, Sodium Level 143, Potassium Level 4.3 , Chloride Level 103, Carbon Dioxide Level 32, Anion Gap 8, Blood Urea Nitrogen 25H, Creatinine 1.1, Estimat Glomerular Filtration Rate > 60, Glucose Level 117H , Calcium Level 9.6, Magnesium Level 2.4, Pro-B-Type Natriuretic Peptide 1615H 02/18/18 08:00: Arterial Blood pH 7.516H, Arterial Blood Partial Pressure CO2 39.0, Arterial Blood Partial Pressure O2 72.5L, Arterial Blood HCO3 30.8H, Arterial Blood Oxygen Saturation 94.5L, Arterial Blood Base Excess 7.4H, Kashif Test Positive Height (Feet): 5 Height (Inches): 2.00 Weight (Pounds): 118 General Appearance: alert EENT: PERRL/EOMI, pharynx normal Neck: non-tender, supple Cardiovascular: normal rate, regular rhythm, no gallop/murmur, no JVD Respiratory/Chest: chest wall non-tender, normal breath sounds, no respiratory distress Abdomen: non tender, soft, no mass Extremities: non-tender, normal inspection, no calf tenderness Edema: no edema noted Arm (L), no edema noted Arm (R), no edema noted Leg (L), no edema noted Leg (R), no edema noted Pedal (L), no edema noted Pedal (R), no edema noted Generalized Neurologic: alert Skin: rash Lymphatic: normal anterior cervical (L), normal anterior cervical (R), normal posterior cervical (L), normal posterior cervical (R), normal submandibular (L) , normal submandibular (R), normal supraclavicular (L), normal supraclavicular ( R), normal axillary (L), normal axillary (R), normal inguinal (L), normal inguinal (R), normal other Dinan Silver MD Feb 18, 2018 21:40
[2018-02-19] MEDS: Albuterol/Ipratropium 3ml neb HHN SCH ×7 (00:22→23:11)
[2018-02-19 00:48] VITALS: BP 126/70
[2018-02-19] MEDS: Meropenem 1 GM in NS 55 ML IVPB SCH ×3 (03:51→18:11)
[2018-02-19 04:00] VITALS: BP 126/71
[2018-02-19] MEDS: Heparin 5000 units/ml inj SUBQ SCH ×4 (05:51→22:00)
[2018-02-19] MEDS ORDERED: Heparin 2000 units/Ns 1000ml INJ PRN (06:27)
[2018-02-19 06:57] LABS: HEMATOCRIT 35.8 % (42.0-52.0); INR 1.1 (0.9-1.1); MEAN CORPUSCULAR VOLUME 97 FL (80-99); PLATELET COUNT 243 K/UL (150-450); WHITE BLOOD COUNT 18.6 K/UL (4.8-10.8)
[2018-02-19 07:16] LABS: ANION GAP 5 mmol/L (5-15); BLOOD UREA NITROGEN 25 mg/dL (7-18); CALCIUM 8.7 MG/DL (8.5-10.1); CARBON DIOXIDE 32 MMOL/L (21-32); CHLORIDE 105 MMOL/L (98-107); CREATININE 1.1 MG/DL (0.55-1.30); POTASSIUM 4.2 MMOL/L (3.5-5.1); SODIUM 142 MMOL/L (136-145)
[2018-02-19 08:00] VITALS: BP 104/69
[2018-02-19] MEDS: Docusate 100mg/10ml Liq NG SCH ×2 (08:42→18:00)
[2018-02-19] MEDS: Aspirin Baby 81mg NG SCH (08:42)
[2018-02-19] MEDS: Metoprolol Tartrate 12.5mg TAB NG SCH ×2 (08:42→21:12)
[2018-02-19] MEDS: levETIRAcetam 500mg/5ml Liquid NG SCH ×2 (08:42→21:11)
[2018-02-19] MEDS: Tums 500mg GT SCH ×3 (08:42→18:00)
[2018-02-19] MEDS: Levothyroxine 125mcg tab NG SCH (08:43)
--- NOTE | 2018-02-19 08:47 | General Progress Note ---
Assessment/Plan Assessment/Plan 1. If pt does not become DNR, consider FEES (Functional Endoscopic Evaluation of Swallowing)-not offered at [place] Other option is to put G-tube in. 2 Strongly suggest palliative care team to evaluate pt along and make recommendations to individual responsible for pt. health care. Subjective Date patient seen: Feb 19, 2018 Time patient seen: 08:30 ROS Limited/Unobtainable: Yes HEENT: Reports: other - specks of blood from resp therapy note Allergies: Coded Allergies: SULFA (SULFONAMIDE ANTIBIOTICS) (Verified Allergy, Unknown, 09/02/15) Subjective Pt is non responsive laying in bed. He is breathing and pulse is regular with eyes open, but does not respond to voice commands. Objective Last 24 Hour Vital Signs Date Time Temp Pulse Resp B/P (MAP) Pulse Ox O2 Delivery O2 Flow Rate FiO2 02/19/18 07:35 98 Bi-pap 36 02/19/18 07:35 Nasal Cannula 36 02/19/18 07:34 98 22 99 Nasal Cannula 36 02/19/18 07:24 98 24 96 Nasal Cannula 4.0 36 02/19/18 05:24 92 22 98 Facial 35 02/19/18 04:20 100.0 02/19/18 04:00 35 02/19/18 04:00 101.8 103 24 126/71 (89) 98 101.8 02/19/18 03:50 101.7 02/19/18 03:43 105 29 99 Bi-pap 35 02/19/18 03:35 103 25 96 Facial 40 02/19/18 03:34 103 24 96 Bi-pap 40 02/19/18 03:32 103 02/19/18 00:48 99.7 85 24 126/70 (88) 98 99.7 02/19/18 00:33 94 30 99 Facial 40 02/19/18 00:32 94 33 99 Bi-pap 50 02/19/18 00:23 92 25 99 Bi-pap 50 02/18/18 23:49 96 27 99 Facial 35 02/18/18 23:27 87 02/18/18 21:29 92 23 99 Facial 35 02/18/18 21:00 Nasal Cannula 3.0 02/18/18 20:46 108 32 94 Bi-pap 50 02/18/18 20:37 111 125/75 10/14/18 20:29 94 Bi-pap 50 02/18/18 20:29 Bi-pap 50 02/18/18 20:26 103 28 92 Bi-pap 50 02/18/18 20:08 115 02/18/18 20:00 98.6 115 24 125/75 (92) 93 98.6 02/18/18 20:00 35 02/18/18 19:10 94 22 99 Facial 35 02/18/18 16:38 101 36 98 Facial 35 02/18/18 16:00 97.7 110 20 93/51 (65) 89 97.7 02/18/18 16:00 4.0 02/18/18 16:00 110 02/18/18 15:26 100 20 96 Nasal Cannula 4.0 36 02/18/18 15:21 98 24 93 Nasal Cannula 4.0 36 02/18/18 12:00 97.5 105 20 103/53 (70) 95 97.5 02/18/18 12:00 4.0 02/18/18 12:00 105 02/18/18 11:08 103 22 97 Nasal Cannula 4.0 36 02/18/18 11:01 101 18 96 Nasal Cannula 4.0 36 02/18/18 09:00 Nasal Cannula 3.0 02/18/18 09:00 114 100/64 Intake and Output 02/18/18 02/19/18 19:00 07:00 Intake Total 80 ml 280 ml Output Total 600 ml 500 ml Balance -520 ml -220 ml Free Water 30 ml 30 ml Tube Feeding 50 ml 250 ml Output Urine Total 600 ml 500 ml Laboratory Tests 02/19/18 05:00: White Blood Count 18.6H, Red Blood Count 3.70L, Hemoglobin 12.0L, Hematocrit 35.8L, Mean Corpuscular Volume 97, Mean Corpuscular Hemoglobin 32.5H, Mean Corpuscular Hemoglobin Concent 33.5, Red Cell Distribution Width 14.0, Platelet Count 243, Mean Platelet Volume 7.4, Neutrophils (%) (Auto) , Lymphocytes (%) ( Auto) , Monocytes (%) (Auto) , Eosinophils (%) (Auto) , Basophils (%) (Auto) , Neutrophils % (Manual) [Pending], Lymphocytes % (Manual) [Pending], Platelet Estimate [Pending], Platelet Morphology [Pending], Prothrombin Time 11.9H, Prothromb Time International Ratio 1.1, Activated Partial Thromboplast Time 38H , Sodium Level 142, Potassium Level 4.2, Chloride Level 105, Carbon Dioxide Level 32, Anion Gap 5, Blood Urea Nitrogen 25H, Creatinine 1.1, Estimat Glomerular Filtration Rate > 60, Glucose Level 142H, Calcium Level 8.7, Pro-B- Type Natriuretic Peptide 2273H 02/19/18 08:15: Arterial Blood pH 7.493H, Arterial Blood Partial Pressure CO2 41.0, Arterial Blood Partial Pressure O2 46.4*L, Arterial Blood HCO3 30.8H, Arterial Blood Oxygen Saturation 82.8*L, Arterial Blood Base Excess 6.9H, Kashif Test Positive Height (Feet): 5 Height (Inches): 2.00 Weight (Pounds): 119 Nicholas Marcus MD Feb 19, 2018 08:47
--- NOTE | 2018-02-19 08:50 | General Progress Note ---
Progress Note Progress Note ENT S: Pt seen 3 days ago-HGB has dropped to 12 with resp therapy note specks of blood on suctioning. O: Nose-no signs of bleeding Mouth-no signs of bleeding A: Drop of HGB is not from ENT ?Epistasis cause-chronic disease anemia P: Re-consult PRN Since pt is getting PEG-consider colonoscopy and endoscopy be GI at same time. Nicholas Marcus MD Feb 19, 2018 08:50
[2018-02-19] MEDS: Vancomycin 500 MG in D5W 110 ML IVPB SCH ×2 (08:51→21:11)
[2018-02-19] MEDS: D5 1/2NS 1,000 ML IV SCH ×2 (08:51→21:13)
[2018-02-19] MEDS: Triamcinolone 0.025% oint TOPIC SCH ×3 (08:53→18:00)
[2018-02-19] MEDS: Pantoprazole Inj IVP SCH (08:53)
--- NOTE | 2018-02-19 11:19 | Diagnostic Imaging Report ---
Indication: Cough Comparison: 02/18/2018 A single view chest radiograph was obtained. Findings: Increasing basilar densities are demonstrated. The heart is mildly enlarged. NG tube is stable. Slightly increased perihilar densities also noted. IMPRESSION: Suspicion of slightly increasing pulmonary vascular congestion compared to yesterday. Basilar atelectasis may be present as well. Please correlate clinically.
[2018-02-19 12:00] VITALS: BP 113/48
--- NOTE | 2018-02-19 12:00 | Infectious Diseases Prog Note ---
Assessment/Plan Assessment/Plan A: 1. pneumonia with MRSA & E. coli 2. respiratory failure 3. Acute lacunar CVA 4. mental retardation 5. staph aureus sepsis r/o endocarditis 6. New sepsis with fever, leukocytosis & Tachycardia P 1. continue vancomycin iv, X 15 days 2. Continue Meropenem 3. Discontinue Femoral line 4. PICC line placement Subjective ROS Limited/Unobtainable: Yes Constitutional: Reports: fever, other - flnh=206.8 Allergies: Coded Allergies: SULFA (SULFONAMIDE ANTIBIOTICS) (Verified Allergy, Unknown, 09/02/15) Objective Vital Signs Last 24 Hour Vital Signs Date Time Temp Pulse Resp B/P (MAP) Pulse Ox O2 Delivery O2 Flow Rate FiO2 02/19/18 11:29 99 18 96 Bi-pap 35 02/19/18 11:29 99 18 96 Bi-pap 35 02/19/18 09:00 Nasal Cannula 4.0 02/19/18 08:00 4.0 02/19/18 08:00 87 02/19/18 08:00 98.1 98 32 104/69 (81) 98 98.1 02/19/18 07:35 98 Bi-pap 36 02/19/18 07:35 Nasal Cannula 36 02/19/18 07:34 98 22 99 Nasal Cannula 36 02/19/18 07:24 98 24 96 Nasal Cannula 4.0 36 02/19/18 05:24 92 22 98 Facial 35 02/19/18 04:20 100.0 02/19/18 04:00 35 02/19/18 04:00 101.8 103 24 126/71 (89) 98 101.8 02/19/18 03:50 101.7 02/19/18 03:43 105 29 99 Bi-pap 35 02/19/18 03:35 103 25 96 Facial 40 02/19/18 03:34 103 24 96 Bi-pap 40 02/19/18 03:32 103 02/19/18 00:48 99.7 85 24 126/70 (88) 98 99.7 02/19/18 00:33 94 30 99 Facial 40 02/19/18 00:32 94 33 99 Bi-pap 50 02/19/18 00:23 92 25 99 Bi-pap 50 02/18/18 23:49 96 27 99 Facial 35 10/14/18 23:27 87 02/18/18 21:29 92 23 99 Facial 35 02/18/18 21:00 Nasal Cannula 3.0 02/18/18 20:46 108 32 94 Bi-pap 50 02/18/18 20:37 111 125/75 02/18/18 20:29 94 Bi-pap 50 02/18/18 20:29 Bi-pap 50 02/18/18 20:26 103 28 92 Bi-pap 50 02/18/18 20:08 115 02/18/18 20:00 98.6 115 24 125/75 (92) 93 98.6 02/18/18 20:00 35 02/18/18 19:10 94 22 99 Facial 35 02/18/18 16:38 101 36 98 Facial 35 02/18/18 16:00 97.7 110 20 93/51 (65) 89 97.7 02/18/18 16:00 4.0 02/18/18 16:00 110 02/18/18 15:26 100 20 96 Nasal Cannula 4.0 36 02/18/18 15:21 98 24 93 Nasal Cannula 4.0 36 02/18/18 12:00 97.5 105 20 103/53 (70) 95 97.5 02/18/18 12:00 4.0 02/18/18 12:00 105 Height (Feet): 5 Height (Inches): 2.00 Weight (Pounds): 119 HEENT: mucous membranes moist Respiratory/Chest: decreased breath sounds, other - on BIPAP Cardiovascular: tachycardia, other - R femoral central line Abdomen: soft, non tender, other - NG tube Extremities: no edema 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: unresponsiveness Laboratory Tests Test 02/19/18 05:00 02/19/18 08:15 White Blood Count 18.6 K/UL (4.8-10.8) H Red Blood Count 3.70 M/UL (4.70-6.10) L Hemoglobin 12.0 G/DL (14.2-18.0) L Hematocrit 35.8 % (42.0-52.0) L Mean Corpuscular Volume 97 FL (80-99) Mean Corpuscular Hemoglobin 32.5 PG (27.0-31.0) H Mean Corpuscular Hemoglobin Concent 33.5 G/DL (32.0-36.0) Red Cell Distribution Width 14.0 % (11.6-14.8) Platelet Count 243 K/UL (150-450) Mean Platelet Volume 7.4 FL (6.5-10.1) Neutrophils (%) (Auto) % (45.0-75.0) Lymphocytes (%) (Auto) % (20.0-45.0) Monocytes (%) (Auto) % (1.0-10.0) Eosinophils (%) (Auto) % (0.0-3.0) Basophils (%) (Auto) % (0.0-2.0) Differential Total Cells Counted 100 Neutrophils % (Manual) 70 % (45-75) Lymphocytes % (Manual) 3 % (20-45) L Monocytes % (Manual) 2 % (1-10) Eosinophils % (Manual) 0 % (0-3) Basophils % (Manual) 0 % (0-2) Band Neutrophils 25 % (0-8) H Platelet Estimate Adequate Platelet Morphology Normal Red Blood Cell Morphology Normal Prothrombin Time 11.9 SEC (9.30-11.50) H Prothromb Time International Ratio 1.1 (0.9-1.1) Activated Partial Thromboplast Time 38 SEC (23-33) H Sodium Level 142 MMOL/L (136-145) Potassium Level 4.2 MMOL/L (3.5-5.1) Chloride Level 105 MMOL/L (98-107) Carbon Dioxide Level 32 MMOL/L (21-32) Anion Gap 5 mmol/L (5-15) Blood Urea Nitrogen 25 mg/dL (7-18) H Creatinine 1.1 MG/DL (0.55-1.30) Estimat Glomerular Filtration Rate > 60 mL/min (>60) Glucose Level 142 MG/DL (74-106) H Calcium Level 8.7 MG/DL (8.5-10.1) Pro-B-Type Natriuretic Peptide 2273 pg/mL (0-125) H Arterial Blood pH 7.493 (7.350-7.450) Arterial Blood Partial Pressure CO2 41.0 mmHg (35.0-45.0) Arterial Blood Partial Pressure O2 46.4 mmHg (75.0-100.0) Arterial Blood HCO3 30.8 mmol/L (22.0-26.0) H Arterial Blood Oxygen Saturation 82.8 % (95-100) *L Arterial Blood Base Excess 6.9 (-2-2) H Kashif Test Positive Current Medications Medications (Trade) Dose Ordered Sig/Eddy Route PRN Reason Start Time Stop Time Status Last Admin Dose Admin Acetaminophen (Tylenol) 650 mg Q6H PRN NG Mild Pain/Temp > 100.5 02/11/18 18:18 03/12/18 18:17 02/19/18 03:50 Albuterol/ Ipratropium (Albuterol/ Ipratropium) 3 ml Q4HRT HHN 02/17/18 19:00 02/22/18 18:59 02/19/18 11:29 Aspirin (ASA) 81 mg DAILY NG 02/12/18 09:00 03/14/18 08:59 02/18/18 08:58 Atorvastatin Calcium (Lipitor) 10 mg BEDTIME NG 02/11/18 21:00 03/09/18 20:59 02/18/18 20:37 Calcium Carbonate (Tums) 500 mg THREE TIMES A DAY GT 02/12/18 09:00 03/09/18 08:59 02/18/18 18:30 Chlorhexidine Gluconate (Tesha-Hex 2%) 1 applic DAILY@2000 TOPIC 02/19/18 20:00 03/21/18 19:59 Dextrose/Sodium Chloride 1,000 ml @ 75 mls/hr [id number] IV 02/18/18 20:00 03/20/18 19:59 02/19/18 08:51 Docusate Sodium (Colace) 100 mg TWICE A DAY NG 02/12/18 09:00 03/13/18 08:59 02/18/18 18:31 Guaifenesin (Robitussin) 100 mg Q4H PRN NG For Cough 02/13/18 13:45 03/14/18 18:14 Heparin Sodium (Porcine) (Heparin 5000 units/ml) 5,000 units EVERY 8 HOURS SUBQ 02/11/18 22:00 03/09/18 13:59 02/18/18 13:10 Heparin Sodium/ Sodium Chloride (Heparin 2000 units/Ns 1000ml premix) 2,000 unit ONCE PRN INJ PICC 02/19/18 06:27 02/19/18 23:59 Levetiracetam (Keppra) 1,000 mg Q12HR NG 02/16/18 21:00 03/18/18 20:59 02/18/18 20:38 Levothyroxine Sodium (Synthroid) 125 mcg DAILY NG 02/17/18 09:00 03/19/18 08:59 02/18/18 08:58 Lidocaine HCl (Xylocaine 1% 30ml) 30 ml ONCE ONCE INJ 02/19/18 23:30 02/19/18 23:31 Magnesium Hydroxide (Mom) 30 ml HSPRN PRN NG Constipation 02/11/18 21:00 03/09/18 20:59 Meropenem 1 gm/ Sodium Chloride 55 ml @ 110 mls/hr Q8H IVPB 02/18/18 11:00 02/23/18 10:59 02/19/18 11:43 Metoprolol Tartrate (Lopressor) 5 mg Q4H PRN IVP hr>130 02/11/18 18:19 03/09/18 18:18 Metoprolol Tartrate (Lopressor) 12.5 mg Q12HR NG 02/11/18 21:00 03/09/18 08:59 02/18/18 20:37 Olanzapine (ZyPREXA) 5 mg DAILY@2100 NG 02/11/18 21:00 03/12/18 20:59 02/18/18 20:37 Pantoprazole (Protonix) 40 mg DAILY IVP 02/12/18 09:00 03/09/18 09:20 02/19/18 08:53 Triamcinolone Acetonide (Kenalog 0.025% Oint) 1 applic THREE TIMES A DAY TOPIC 02/14/18 18:00 03/16/18 17:59 02/19/18 08:53 Vancomycin HCl (Vanco rx to dose) 1 ea DAILY PRN MISC PER PHARMACY 02/12/18 09:00 03/09/18 07:29 Vancomycin HCl 500 mg/Dextrose 110 ml @ 110 mls/hr Q12H IVPB 02/11/18 20:00 03/06/18 19:59 02/19/18 08:51 Wilbur Escudero MD Feb 19, 2018 12:00
--- NOTE | 2018-02-19 13:15 | Pulmonology Progress Note ---
Assessment/Plan Problems: (1) Pneumonia (2) Sepsis (3) Congenital heart disease, adult (4) Down syndrome (5) Mental retardation (6) Anxiety Assessment/Plan ASSESSMENT: The patient is a 67-year-old male with a history of mental retardation and chronic subdural hematomas, recently admitted to [facility] with tracheobronchitis and poor mucociliary clearance, now presenting with dehydration, mild troponin elevation, acute kidney injury, and possible right infrahilar infiltrate. PROBLEM LIST: 1. Respiratory failure 2. Right perihilar infiltrate, healthcare-associated pneumonia. 3. MRSA sepsis and pneumonia 4. Acute kidney injury, likely dehydration. 5. Mild troponin elevation, likely demand ischemia. 6. History of recurrent aspiration pneumonia in the past. 7. Chronic subdural hematoma. 8. Mental retardation. 9. Hypothyroidism. 10. Chronic right bundle-branch block. 11. Acute on chronic CVA 12. Elevated D-dimer with negative Duplex and VQ TREATMENT PLAN: 1. Monitor respiratory statis 2. BiPAP PRN and qHS 3. Titrate down FiO2 to keep SaO2 > 90%. 4. RTC and PRN HHN's, CPT 5. Mucinex and PRN Robitussin 6. Abx per ID, F/U Cx's, D/C fem line 7. NPO, PEG when able 8. Monitor volumes 9. Hep SQ for DVT Px 10. FC Subjective Allergies: Coded Allergies: SULFA (SULFONAMIDE ANTIBIOTICS) (Verified Allergy, Unknown, 09/02/15) Subjective Not doing well, on/off BiPAP, + secretions, WCt inc, CXR stable, on [place]/Vanco, PEG when stable Objective Last 24 Hour Vital Signs Date Time Temp Pulse Resp B/P (MAP) Pulse Ox O2 Delivery O2 Flow Rate FiO2 02/19/18 12:00 35 02/19/18 12:00 99.5 88 16 113/48 (69) 98 99.5 02/19/18 11:58 92 22 98 Facial 35 02/19/18 11:29 99 18 96 Bi-pap 35 02/19/18 11:29 99 18 96 Bi-pap 35 02/19/18 09:00 Nasal Cannula 4.0 02/19/18 08:00 4.0 02/19/18 08:00 87 02/19/18 08:00 98.1 98 32 104/69 (81) 98 98.1 02/19/18 07:35 98 Bi-pap 36 02/19/18 07:35 Nasal Cannula 36 02/19/18 07:34 98 22 99 Nasal Cannula 36 02/19/18 07:24 98 24 96 Nasal Cannula 4.0 36 02/19/18 05:24 92 22 98 Facial 35 02/19/18 04:20 100.0 02/19/18 04:00 35 02/19/18 04:00 101.8 103 24 126/71 (89) 98 101.8 02/19/18 03:50 101.7 02/19/18 03:43 105 29 99 Bi-pap 35 02/19/18 03:35 103 25 96 Facial 40 02/19/18 03:34 103 24 96 Bi-pap 40 02/19/18 03:32 103 02/19/18 00:48 99.7 85 24 126/70 (88) 98 99.7 02/19/18 00:33 94 30 99 Facial 40 02/19/18 00:32 94 33 99 Bi-pap 50 02/19/18 00:23 92 25 99 Bi-pap 50 02/18/18 23:49 96 27 99 Facial 35 02/18/18 23:27 87 02/18/18 21:29 92 23 99 Facial 35 02/18/18 21:00 Nasal Cannula 3.0 02/18/18 20:46 108 32 94 Bi-pap 50 02/18/18 20:37 111 125/75 02/18/18 20:29 94 Bi-pap 50 02/18/18 20:29 Bi-pap 50 02/18/18 20:26 103 28 92 Bi-pap 50 02/18/18 20:08 115 02/18/18 20:00 98.6 115 24 125/75 (92) 93 98.6 02/18/18 20:00 35 02/18/18 19:10 94 22 99 Facial 35 02/18/18 16:38 101 36 98 Facial 35 02/18/18 16:00 97.7 110 20 93/51 (65) 89 97.7 02/18/18 16:00 4.0 02/18/18 16:00 110 02/18/18 15:26 100 20 96 Nasal Cannula 4.0 36 02/18/18 15:21 98 24 93 Nasal Cannula 4.0 36 Intake and Output 02/18/18 02/19/18 19:00 07:00 Intake Total 80 ml 280 ml Output Total 600 ml 500 ml Balance -520 ml -220 ml Free Water 30 ml 30 ml Tube Feeding 50 ml 250 ml Output Urine Total 600 ml 500 ml General Appearance: cachetic, other - BiPAP HEENT: normocephalic, atraumatic, anicteric, mucous membranes moist Respiratory/Chest: rhonchi Cardiovascular: normal peripheral pulses, normal rate, regular rhythm Abdomen: normal bowel sounds, soft, non tender, no organomegaly, non distended Extremities: no cyanosis, no clubbing, no edema Laboratory Tests 02/19/18 05:00: White Blood Count 18.6H, Red Blood Count 3.70L, Hemoglobin 12.0L, Hematocrit 35.8L, Mean Corpuscular Volume 97, Mean Corpuscular Hemoglobin 32.5H, Mean Corpuscular Hemoglobin Concent 33.5, Red Cell Distribution Width 14.0, Platelet Count 243, Mean Platelet Volume 7.4, Neutrophils (%) (Auto) , Lymphocytes (%) ( Auto) , Monocytes (%) (Auto) , Eosinophils (%) (Auto) , Basophils (%) (Auto) , Differential Total Cells Counted 100, Neutrophils % (Manual) 70, Lymphocytes % ( Manual) 3L, Monocytes % (Manual) 2, Eosinophils % (Manual) 0, Basophils % ( Manual) 0, Band Neutrophils 25H, Platelet Estimate Adequate, Platelet Morphology Normal, Red Blood Cell Morphology Normal, Prothrombin Time 11.9H, Prothromb Time International Ratio 1.1, Activated Partial Thromboplast Time 38H , Sodium Level 142, Potassium Level 4.2, Chloride Level 105, Carbon Dioxide Level 32, Anion Gap 5, Blood Urea Nitrogen 25H, Creatinine 1.1, Estimat Glomerular Filtration Rate > 60, Glucose Level 142H, Calcium Level 8.7, Pro-B- Type Natriuretic Peptide 2273H 02/19/18 08:15: Arterial Blood pH 7.493H, Arterial Blood Partial Pressure CO2 41.0, Arterial Blood Partial Pressure O2 46.4*L, Arterial Blood HCO3 30.8H, Arterial Blood Oxygen Saturation 82.8*L, Arterial Blood Base Excess 6.9H, Kashif Test Positive Current Medications Medications (Trade) Dose Ordered Sig/Eddy Route PRN Reason Start Time Stop Time Status Last Admin Dose Admin Acetaminophen (Tylenol) 650 mg Q6H PRN NG Mild Pain/Temp > 100.5 02/11/18 18:18 03/12/18 18:17 02/19/18 03:50 Albuterol/ Ipratropium (Albuterol/ Ipratropium) 3 ml Q4HRT HHN 02/17/18 19:00 02/22/18 18:59 02/19/18 11:29 Aspirin (ASA) 81 mg DAILY NG 02/12/18 09:00 03/14/18 08:59 02/18/18 08:58 Atorvastatin Calcium (Lipitor) 10 mg BEDTIME NG 02/11/18 21:00 03/09/18 20:59 02/18/18 20:37 Calcium Carbonate (Tums) 500 mg THREE TIMES A DAY GT 02/12/18 09:00 03/09/18 08:59 02/18/18 18:30 Chlorhexidine Gluconate (Tesha-Hex 2%) 1 applic DAILY@2000 TOPIC 02/19/18 20:00 03/21/18 19:59 Dextrose/Sodium Chloride 1,000 ml @ 75 mls/hr [id number] IV 02/18/18 20:00 03/20/18 19:59 02/19/18 08:51 Docusate Sodium (Colace) 100 mg TWICE A DAY NG 02/12/18 09:00 03/13/18 08:59 02/18/18 18:31 Guaifenesin (Robitussin) 100 mg Q4H PRN NG For Cough 02/13/18 13:45 03/14/18 18:14 Heparin Sodium (Porcine) (Heparin 5000 units/ml) 5,000 units EVERY 8 HOURS SUBQ 02/11/18 22:00 03/09/18 13:59 02/18/18 13:10 Heparin Sodium/ Sodium Chloride (Heparin 2000 units/Ns 1000ml premix) 2,000 unit ONCE PRN INJ PICC 02/19/18 06:27 02/19/18 23:59 Levetiracetam (Keppra) 1,000 mg Q12HR NG 02/16/18 21:00 03/18/18 20:59 02/18/18 20:38 Levothyroxine Sodium (Synthroid) 125 mcg DAILY NG 02/17/18 09:00 03/19/18 08:59 02/18/18 08:58 Lidocaine HCl (Xylocaine 1% 30ml) 30 ml ONCE ONCE INJ 02/19/18 23:30 02/19/18 23:31 Magnesium Hydroxide (Mom) 30 ml HSPRN PRN NG Constipation 02/11/18 21:00 03/09/18 20:59 Meropenem 1 gm/ Sodium Chloride 55 ml @ 110 mls/hr Q8H IVPB 02/18/18 11:00 02/23/18 10:59 02/19/18 11:43 Metoprolol Tartrate (Lopressor) 5 mg Q4H PRN IVP hr>130 02/11/18 18:19 03/09/18 18:18 Metoprolol Tartrate (Lopressor) 12.5 mg Q12HR NG 02/11/18 21:00 03/09/18 08:59 02/18/18 20:37 Olanzapine (ZyPREXA) 5 mg DAILY@2100 NG 02/11/18 21:00 03/12/18 20:59 02/18/18 20:37 Pantoprazole (Protonix) 40 mg DAILY IVP 02/12/18 09:00 03/09/18 09:20 02/19/18 08:53 Triamcinolone Acetonide (Kenalog 0.025% Oint) 1 applic THREE TIMES A DAY TOPIC 02/14/18 18:00 03/16/18 17:59 02/19/18 13:13 Vancomycin HCl (Vanco rx to dose) 1 ea DAILY PRN MISC PER PHARMACY 02/12/18 09:00 03/09/18 07:29 Vancomycin HCl 500 mg/Dextrose 110 ml @ 110 mls/hr Q12H IVPB 02/11/18 20:00 03/06/18 19:59 02/19/18 08:51 Sae Forrest MD Feb 19, 2018 13:15
[2018-02-19] MEDS ORDERED: Lidocaine 1% Plain 30 ml INJ ONE (13:32)
--- NOTE | 2018-02-19 15:58 | Diagnostic Imaging Report ---
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 The left upper extremity was prepped with alcohol. All elements of maximal sterile barrier technique were followed including usage of a cap, mask, sterile gown, sterile gloves, hand hygiene and a large sterile sheet. Sonographic evaluation of the upper extremity was performed demonstrating a patent and compressible brachial vein. Access was obtained under real-time ultrasound guidance (with utilization of sterile gel and sterile probe cover) and digital image was saved and archived. An .018 wire was introduced. Needle exchanged for a 5 Dutch peel-away sheath. Measurements were obtained. A 5 Dutch dual-lumen Power PICC line catheter was cut to 40 cm and introduced over the wire. Peel-away sheath and wire were removed.Catheter was secured to the skin using 2-0 Prolene suture. Both ports aspirate and flush easily. Fluoroscopic images show distal tip in the superior vena cava. Total fluoroscopic time 0.3 minutes. Impression: Successful placement of an upper extremity PICC line catheter
[2018-02-19 16:00] VITALS: BP 124/43
[2018-02-19 20:00] VITALS: BP 102/53
--- NOTE | 2018-02-19 20:18 | General Progress Note ---
Assessment/Plan Status: not improved, fever Assessment/Plan ASSESSMENT: 1. Shortness of breath, possibly secondary to pneumonia, possible sepsis. 2. Acute respiratory failure requiring BiPAP. 3. Acute kidney injury. 4. Elevated troponin, possibly from demand ischemia. 5. Developmental delay. 6. Dysphagia. 7. Psoriasis. 8. Acute left cerebellar infarction 9. MRSA bacteremia/Pneumonia/?endocarditis 10. epistaxis, secondary to trauma from NGT and suctioning 11. sepsis PLAN: 1. Continue the patient on BiPAP support prn 2. Monitor vitals and I and O's. 3. advance NGT and start diet in cxr confirmed palcement 4. The patient was started on IV vancomycin and Zosyn. 5. To continue breathing treatment with frequent suctioning p.r.n. 6. Continue half-way medications. 7. Monitor troponin. 8. Heparin for DVT prophylaxis. 9. Protonix for GI prophylaxis. 10. Dr. Forrest, Pulmonary consult and Dr. Johnston, ID consult. 11. change aspirin to 81 mg daily 12. fu Echo and carotic us and venous duplex 13 gi consult appreciated, NGT for now repeat swallow eval later when more stable 14. NGT for meds and tube feeding 15. repeat Blood cultures to check for clearance of MRSA conitnue supportive care continue telemetry VQ scan negative for PE monitor labs ENT consult to evaluate for epistaxis, will check am cbc and INR/PTT PICC line placemetn for IV vanco for 19 more days for possible endocarditis PEG placement per Dr. Bryan postponed due to fever I spoke with Dr. Mckenna from [facility] who agrees to PEG for consent can call [phone] Nini Baltazar director or for Emergency [phone] PICC line placed 02-19-18 right groin line removed 02-19-18, fu cultures now on Vanco and Meopenam will give spot dose of lasix 20 mg and monitor renal function and bmp Subjective Date patient seen: Feb 19, 2018 ROS Limited/Unobtainable: Yes Allergies: Coded Allergies: SULFA (SULFONAMIDE ANTIBIOTICS) (Verified Allergy, Unknown, 09/02/15) Subjective patient with high fever 102 septic, started on Meropenam, new PICC line placed and right groin line sent for culture, PEG postponed Objective Last 24 Hour Vital Signs Date Time Temp Pulse Resp B/P (MAP) Pulse Ox O2 Delivery O2 Flow Rate FiO2 02/19/18 19:32 Nasal Cannula 4.0 36 02/19/18 19:32 83 18 98 Nasal Cannula 4.0 36 02/19/18 19:32 98 Nasal Cannula 4.0 36 02/19/18 16:00 99.0 101 16 124/43 (70) 94 99.0 02/19/18 16:00 4.0 02/19/18 16:00 91 02/19/18 15:48 101 18 96 Bi-pap 35 02/19/18 15:48 101 18 96 Nasal Cannula 4.0 36 02/19/18 13:18 101 20 96 Facial 35 02/19/18 12:00 35 02/19/18 12:00 97 02/19/18 12:00 99.5 88 16 113/48 (69) 98 99.5 02/19/18 11:58 92 22 98 Facial 35 02/19/18 11:29 99 18 96 Bi-pap 35 02/19/18 11:29 99 18 96 Bi-pap 35 02/19/18 09:00 Nasal Cannula 4.0 02/19/18 08:00 4.0 02/19/18 08:00 87 02/19/18 08:00 98.1 98 32 104/69 (81) 98 98.1 02/19/18 07:35 98 Bi-pap 36 02/19/18 07:35 Nasal Cannula 36 02/19/18 07:34 98 22 99 Nasal Cannula 36 02/19/18 07:24 98 24 96 Nasal Cannula 4.0 36 02/19/18 05:24 92 22 98 Facial 35 02/19/18 04:20 100.0 02/19/18 04:00 35 02/19/18 04:00 101.8 103 24 126/71 (89) 98 101.8 02/19/18 03:50 101.7 02/19/18 03:43 105 29 99 Bi-pap 35 02/19/18 03:35 103 25 96 Facial 40 02/19/18 03:34 103 24 96 Bi-pap 40 02/19/18 03:32 103 02/19/18 00:48 99.7 85 24 126/70 (88) 98 99.7 02/19/18 00:33 94 30 99 Facial 40 02/19/18 00:32 94 33 99 Bi-pap 50 02/19/18 00:23 92 25 99 Bi-pap 50 02/18/18 23:49 96 27 99 Facial 35 02/18/18 23:27 87 02/18/18 21:29 92 23 99 Facial 35 02/18/18 21:00 Nasal Cannula 3.0 02/18/18 20:46 108 32 94 Bi-pap 50 02/18/18 20:37 111 125/75 02/18/18 20:29 94 Bi-pap 50 02/18/18 20:29 Bi-pap 50 02/18/18 20:26 103 28 92 Bi-pap 50 Intake and Output 02/18/18 02/19/18 19:00 07:00 Intake Total 80 ml 280 ml Output Total 600 ml 500 ml Balance -520 ml -220 ml Free Water 30 ml 30 ml Tube Feeding 50 ml 250 ml Output Urine Total 600 ml 500 ml Laboratory Tests 02/19/18 05:00: White Blood Count 18.6H, Red Blood Count 3.70L, Hemoglobin 12.0L, Hematocrit 35.8L, Mean Corpuscular Volume 97, Mean Corpuscular Hemoglobin 32.5H, Mean Corpuscular Hemoglobin Concent 33.5, Red Cell Distribution Width 14.0, Platelet Count 243, Mean Platelet Volume 7.4, Neutrophils (%) (Auto) , Lymphocytes (%) ( Auto) , Monocytes (%) (Auto) , Eosinophils (%) (Auto) , Basophils (%) (Auto) , Differential Total Cells Counted 100, Neutrophils % (Manual) 70, Lymphocytes % ( Manual) 3L, Monocytes % (Manual) 2, Eosinophils % (Manual) 0, Basophils % ( Manual) 0, Band Neutrophils 25H, Platelet Estimate Adequate, Platelet Morphology Normal, Red Blood Cell Morphology Normal, Prothrombin Time 11.9H, Prothromb Time International Ratio 1.1, Activated Partial Thromboplast Time 38H , Sodium Level 142, Potassium Level 4.2, Chloride Level 105, Carbon Dioxide Level 32, Anion Gap 5, Blood Urea Nitrogen 25H, Creatinine 1.1, Estimat Glomerular Filtration Rate > 60, Glucose Level 142H, Calcium Level 8.7, Pro-B- Type Natriuretic Peptide 2273H 02/19/18 08:15: Arterial Blood pH 7.493H, Arterial Blood Partial Pressure CO2 41.0, Arterial Blood Partial Pressure O2 46.4*L, Arterial Blood HCO3 30.8H, Arterial Blood Oxygen Saturation 82.8*L, Arterial Blood Base Excess 6.9H, Kashif Test Positive Height (Feet): 5 Height (Inches): 2.00 Weight (Pounds): 119 General Appearance: no apparent distress, alert EENT: PERRL/EOMI, pharynx normal Neck: non-tender, supple Cardiovascular: normal rate, regular rhythm, no gallop/murmur, no JVD Respiratory/Chest: rhonchi - bilaterally Abdomen: non tender, soft, no mass Extremities: non-tender, normal inspection, no calf tenderness Neurologic: alert Skin: rash Diann Silver MD Feb 19, 2018 20:18
--- NOTE | 2018-02-19 20:55 | General Progress Note ---
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 recurrent aspiration Recommendations - PEG placement cancelled - Abx - Hold TF, in case repeatedly aspirating - Can plan on PEG later this week if improved - optimize pulmonary parameters Subjective Allergies: Coded Allergies: SULFA (SULFONAMIDE ANTIBIOTICS) (Verified Allergy, Unknown, 09/02/15) Subjective Above noted [facility] conservators re PEG Patient with temp of 102 overnight also WBC elevated on BIPAP at time of visit today off feeds Objective Last 24 Hour Vital Signs Date Time Temp Pulse Resp B/P (MAP) Pulse Ox O2 Delivery O2 Flow Rate FiO2 02/19/18 19:44 88 18 96 Nasal Cannula 36 02/19/18 19:32 Nasal Cannula 4.0 36 02/19/18 19:32 83 18 98 Nasal Cannula 4.0 36 02/19/18 19:32 98 Nasal Cannula 4.0 36 02/19/18 16:00 99.0 101 16 124/43 (70) 94 99.0 02/19/18 16:00 4.0 02/19/18 16:00 91 02/19/18 15:48 101 18 96 Bi-pap 35 02/19/18 15:48 101 18 96 Nasal Cannula 4.0 36 02/19/18 13:18 101 20 96 Facial 35 02/19/18 12:00 35 02/19/18 12:00 97 02/19/18 12:00 99.5 88 16 113/48 (69) 98 99.5 02/19/18 11:58 92 22 98 Facial 35 02/19/18 11:29 99 18 96 Bi-pap 35 02/19/18 11:29 99 18 96 Bi-pap 35 02/19/18 09:00 Nasal Cannula 4.0 02/19/18 08:00 4.0 02/19/18 08:00 87 02/19/18 08:00 98.1 98 32 104/69 (81) 98 98.1 02/19/18 07:35 98 Bi-pap 36 02/19/18 07:35 Nasal Cannula 36 02/19/18 07:34 98 22 99 Nasal Cannula 36 02/19/18 07:24 98 24 96 Nasal Cannula 4.0 36 02/19/18 05:24 92 22 98 Facial 35 02/19/18 04:20 100.0 02/19/18 04:00 35 02/19/18 04:00 101.8 103 24 126/71 (89) 98 101.8 02/19/18 03:50 101.7 02/19/18 03:43 105 29 99 Bi-pap 35 02/19/18 03:35 103 25 96 Facial 40 02/19/18 03:34 103 24 96 Bi-pap 40 02/19/18 03:32 103 02/19/18 00:48 99.7 85 24 126/70 (88) 98 99.7 02/19/18 00:33 94 30 99 Facial 40 02/19/18 00:32 94 33 99 Bi-pap 50 02/19/18 00:23 92 25 99 Bi-pap 50 02/18/18 23:49 96 27 99 Facial 35 02/18/18 23:27 87 02/18/18 21:29 92 23 99 Facial 35 02/18/18 21:00 Nasal Cannula 3.0 Intake and Output 02/18/18 02/19/18 19:00 07:00 Intake Total 80 ml 280 ml Output Total 600 ml 500 ml Balance -520 ml -220 ml Free Water 30 ml 30 ml Tube Feeding 50 ml 250 ml Output Urine Total 600 ml 500 ml Laboratory Tests 02/19/18 05:00: White Blood Count 18.6H, Red Blood Count 3.70L, Hemoglobin 12.0L, Hematocrit 35.8L, Mean Corpuscular Volume 97, Mean Corpuscular Hemoglobin 32.5H, Mean Corpuscular Hemoglobin Concent 33.5, Red Cell Distribution Width 14.0, Platelet Count 243, Mean Platelet Volume 7.4, Neutrophils (%) (Auto) , Lymphocytes (%) ( Auto) , Monocytes (%) (Auto) , Eosinophils (%) (Auto) , Basophils (%) (Auto) , Differential Total Cells Counted 100, Neutrophils % (Manual) 70, Lymphocytes % ( Manual) 3L, Monocytes % (Manual) 2, Eosinophils % (Manual) 0, Basophils % ( Manual) 0, Band Neutrophils 25H, Platelet Estimate Adequate, Platelet Morphology Normal, Red Blood Cell Morphology Normal, Prothrombin Time 11.9H, Prothromb Time International Ratio 1.1, Activated Partial Thromboplast Time 38H , Sodium Level 142, Potassium Level 4.2, Chloride Level 105, Carbon Dioxide Level 32, Anion Gap 5, Blood Urea Nitrogen 25H, Creatinine 1.1, Estimat Glomerular Filtration Rate > 60, Glucose Level 142H, Calcium Level 8.7, Pro-B- Type Natriuretic Peptide 2273H 02/19/18 08:15: Arterial Blood pH 7.493H, Arterial Blood Partial Pressure CO2 41.0, Arterial Blood Partial Pressure O2 46.4*L, Arterial Blood HCO3 30.8H, Arterial Blood Oxygen Saturation 82.8*L, Arterial Blood Base Excess 6.9H, Kashif Test Positive Height (Feet): 5 Height (Inches): 2.00 Weight (Pounds): 119 Objective WDWN WM NCAT supple Chest b/l Ronchi RR abd soft ND no edema OBS Michael Estevez MD Feb 19, 2018 20:55
[2018-02-19] MEDS: Dyna-Hex 2% Top Sol 2oz TOPIC SCH (21:11)
[2018-02-20] VITALS: BP 108/71
[2018-02-20] MEDS: Albuterol/Ipratropium 3ml neb HHN SCH ×6 (03:22→23:35)
[2018-02-20] MEDS ORDERED: Albuterol/Ipratropium 3ml neb ONE (03:29)
[2018-02-20 04:00] VITALS: BP 105/54
[2018-02-20] MEDS: Meropenem 1 GM in NS 55 ML IVPB SCH ×3 (04:00→18:32)
[2018-02-20] MEDS: Heparin 5000 units/ml inj SUBQ SCH ×3 (06:00→23:21)
[2018-02-20 06:01] LABS: HEMATOCRIT 33.7 % (42.0-52.0); HEMOGLOBIN 10.9 G/DL (14.2-18.0); MEAN CORPUSCULAR VOLUME 97 FL (80-99); PLATELET COUNT 236 K/UL (150-450); RED BLOOD COUNT 3.46 M/UL (4.70-6.10); RED CELL DISTRIBUTION WIDTH 13.9 % (11.6-14.8); WHITE BLOOD COUNT 17.4 K/UL (4.8-10.8)
[2018-02-20 06:35] LABS: ANION GAP 5 mmol/L (5-15); BLOOD UREA NITROGEN 17 mg/dL (7-18); CALCIUM 8.6 MG/DL (8.5-10.1); CARBON DIOXIDE 29 MMOL/L (21-32); CHLORIDE 103 MMOL/L (98-107); POTASSIUM 3.4 MMOL/L (3.5-5.1); SODIUM 137 MMOL/L (136-145)
[2018-02-20 08:00] VITALS: BP 126/78
[2018-02-20] MEDS: Pantoprazole Inj IVP SCH ×2 (09:00→09:48)
[2018-02-20] MEDS: Levothyroxine 125mcg tab NG SCH (09:00)
[2018-02-20] MEDS: Tums 500mg GT SCH ×3 (09:00→17:19)
[2018-02-20] MEDS: Aspirin Baby 81mg NG SCH (09:00)
[2018-02-20] MEDS: Docusate 100mg/10ml Liq NG SCH ×2 (09:00→17:19)
[2018-02-20] MEDS: Metoprolol Tartrate 12.5mg TAB NG SCH ×2 (09:00→21:00)
[2018-02-20] MEDS: levETIRAcetam 500mg/5ml Liquid NG SCH ×2 (09:00→23:19)
[2018-02-20] MEDS: Vancomycin 500 MG in D5W 110 ML IVPB SCH ×2 (09:48→23:14)
[2018-02-20] MEDS: Triamcinolone 0.025% oint TOPIC SCH ×3 (09:48→17:21)
--- NOTE | 2018-02-20 10:49 | Infectious Diseases Prog Note ---
"Assessment/Plan Assessment/Plan antibiotics : vancomycin iv, meropenem A 1. MRSA | e.coli pneumonia 2. respiratory failure resolved 3. subdural hematoma 4. mental retardation 5. MRSA sepsis ? endocarditis 6. CVA 7. leucocytosis improving P 1. continue vancomycin iv 14 more days 2. continue meropenem 3. will follow up cultures Subjective ROS Limited/Unobtainable: Yes Allergies: Coded Allergies: SULFA (SULFONAMIDE ANTIBIOTICS) (Verified Allergy, Unknown, 09/02/15) Objective Vital Signs Last 24 Hour Vital Signs Date Time Temp Pulse Resp B/P (MAP) Pulse Ox O2 Delivery O2 Flow Rate FiO2 02/20/18 07:24 72 18 99 Nasal Cannula 4.0 36 02/20/18 07:15 Nasal Cannula 4.0 36 02/20/18 07:15 80 18 97 Nasal Cannula 4.0 36 02/20/18 07:15 97 Nasal Cannula 4.0 36 02/20/18 05:14 64 23 95 Facial 35 02/20/18 04:00 35 02/20/18 04:00 99.0 51 16 105/54 (71) 92 99.0 02/20/18 04:00 87 02/20/18 03:25 66 20 98 Bi-pap 35 02/20/18 03:15 58 18 96 Bi-pap 35 02/20/18 03:14 58 18 96 Facial 35 02/20/18 01:24 62 20 97 Facial 35 02/20/18 00:00 35 02/20/18 00:00 76 02/20/18 00:00 97.0 66 16 108/71 (83) 96 97.0 02/19/18 23:18 75 18 97 Nasal Cannula 36 02/19/18 23:11 73 18 97 Nasal Cannula 4.0 36 02/19/18 22:19 79 20 98 Facial 35 02/19/18 21:12 80 102/53 02/19/18 21:00 Nasal Cannula 4.0 02/19/18 20:00 77 02/19/18 20:00 97.2 80 22 102/53 (69) 100 97.2 02/19/18 19:44 88 18 96 Nasal Cannula 36 02/19/18 19:32 Nasal Cannula 4.0 36 02/19/18 19:32 83 18 98 Nasal Cannula 4.0 36 02/19/18 19:32 98 Nasal Cannula 4.0 36 02/19/18 16:00 99.0 101 16 124/43 (70) 94 99.0 02/19/18 16:00 4.0 02/19/18 16:00 91 02/19/18 15:48 101 18 96 Bi-pap 35 02/19/18 15:48 101 18 96 Nasal Cannula 4.0 36 02/19/18 13:18 101 20 96 Facial 35 02/19/18 12:00 35 02/19/18 12:00 97 02/19/18 12:00 99.5 88 16 113/48 (69) 98 99.5 02/19/18 11:58 92 22 98 Facial 35 02/19/18 11:29 99 18 96 Bi-pap 35 02/19/18 11:29 99 18 96 Bi-pap 35 Height (Feet): 5 Height (Inches): 2.00 Weight (Pounds): 128 Respiratory/Chest: lungs clear Cardiovascular: normal rate, regular rhythm, no gallop/murmur Abdomen: soft, non tender Extremities: no edema Skin: rash - erythematous rash decreased, left arm PICC Microbiology Date/Time Source Procedure Growth Status 02/18/18 11:05 Blood Blood Culture - Preliminary NO GROWTH AFTER 24 HOURS Resulted 02/19/18 15:45 Femoral Central Line Catheter Tip Culture - Preliminary NO GROWTH Resulted Laboratory Tests Test 02/20/18 04:00 White Blood Count 17.4 K/UL (4.8-10.8) H Red Blood Count 3.46 M/UL (4.70-6.10) L Hemoglobin 10.9 G/DL (14.2-18.0) L Hematocrit 33.7 % (42.0-52.0) L Mean Corpuscular Volume 97 FL (80-99) Mean Corpuscular Hemoglobin 31.5 PG (27.0-31.0) H Mean Corpuscular Hemoglobin Concent 32.4 G/DL (32.0-36.0) Red Cell Distribution Width 13.9 % (11.6-14.8) Platelet Count 236 K/UL (150-450) Mean Platelet Volume 7.6 FL (6.5-10.1) Neutrophils (%) (Auto) % (45.0-75.0) Lymphocytes (%) (Auto) % (20.0-45.0) Monocytes (%) (Auto) % (1.0-10.0) Eosinophils (%) (Auto) % (0.0-3.0) Basophils (%) (Auto) % (0.0-2.0) Differential Total Cells Counted 100 Neutrophils % (Manual) 86 % (45-75) H Lymphocytes % (Manual) 9 % (20-45) L Monocytes % (Manual) 5 % (1-10) Eosinophils % (Manual) 0 % (0-3) Basophils % (Manual) 0 % (0-2) Band Neutrophils 0 % (0-8) Platelet Estimate Adequate Platelet Morphology Normal Hypochromasia 1+ Anisocytosis 1+ Sodium Level 137 MMOL/L (136-145) Potassium Level 3.4 MMOL/L (3.5-5.1) L Chloride Level 103 MMOL/L (98-107) Carbon Dioxide Level 29 MMOL/L (21-32) Anion Gap 5 mmol/L (5-15) Blood Urea Nitrogen 17 mg/dL (7-18) Creatinine 1.0 MG/DL (0.55-1.30) Estimat Glomerular Filtration Rate > 60 mL/min (>60) Glucose Level 281 MG/DL (74-106) #H Calcium Level 8.6 MG/DL (8.5-10.1) Pro-B-Type Natriuretic Peptide 1153 pg/mL (0-125) H Current Medications Medications (Trade) Dose Ordered Sig/Eddy Route PRN Reason Start Time Stop Time Status Last Admin Dose Admin Acetaminophen (Tylenol) 650 mg Q6H PRN NG Mild Pain/Temp > 100.5 02/11/18 18:18 03/12/18 18:17 02/19/18 03:50 Albuterol/ Ipratropium (Albuterol/ Ipratropium) 3 ml Q4HRT HHN 02/17/18 19:00 02/22/18 18:59 02/20/18 07:35 Aspirin (ASA) 81 mg DAILY NG 02/12/18 09:00 03/14/18 08:59 02/18/18 08:58 Atorvastatin Calcium (Lipitor) 10 mg BEDTIME NG 02/11/18 21:00 03/09/18 20:59 02/19/18 21:12 Calcium Carbonate (Tums) 500 mg THREE TIMES A DAY GT 02/12/18 09:00 03/09/18 08:59 02/19/18 18:00 Chlorhexidine Gluconate (Tesha-Hex 2%) 1 applic DAILY@2000 TOPIC 02/19/18 20:00 03/21/18 19:59 02/19/18 21:11 Dextrose/Sodium Chloride 1,000 ml @ 75 mls/hr [id number] IV 02/18/18 20:00 03/20/18 19:59 02/19/18 21:13 Docusate Sodium (Colace) 100 mg TWICE A DAY NG 02/12/18 09:00 03/13/18 08:59 02/19/18 18:00 Guaifenesin (Robitussin) 100 mg Q4H PRN NG For Cough 02/13/18 13:45 03/14/18 18:14 Heparin Sodium (Porcine) (Heparin 5000 units/ml) 5,000 units EVERY 8 HOURS SUBQ 02/11/18 22:00 03/09/18 13:59 02/18/18 13:10 Levetiracetam (Keppra) 1,000 mg Q12HR NG 02/16/18 21:00 03/18/18 20:59 02/19/18 21:11 Levothyroxine Sodium (Synthroid) 125 mcg DAILY NG 02/17/18 09:00 03/19/18 08:59 02/18/18 08:58 Magnesium Hydroxide (Mom) 30 ml HSPRN PRN NG Constipation 02/11/18 21:00 03/09/18 20:59 Meropenem 1 gm/ Sodium Chloride 55 ml @ 110 mls/hr Q8H IVPB 02/18/18 11:00 02/23/18 10:59 02/20/18 10:22 Metoprolol Tartrate (Lopressor) 5 mg Q4H PRN IVP hr>130 02/11/18 18:19 03/09/18 18:18 Metoprolol Tartrate (Lopressor) 12.5 mg Q12HR NG 02/11/18 21:00 03/09/18 08:59 02/19/18 21:12 Olanzapine (ZyPREXA) 5 mg DAILY@2100 NG 02/11/18 21:00 03/12/18 20:59 02/19/18 21:11 Pantoprazole (Protonix) 40 mg DAILY IVP 02/12/18 09:00 03/09/18 09:20 02/20/18 09:48 Triamcinolone Acetonide (Kenalog 0.025% Oint) 1 applic THREE TIMES A DAY TOPIC 02/14/18 18:00 03/16/18 17:59 02/20/18 09:48 Vancomycin HCl (Vanco rx to dose) 1 ea DAILY PRN MISC PER PHARMACY 02/12/18 09:00 03/09/18 07:29 Vancomycin HCl 500 mg/Dextrose 110 ml @ 110 mls/hr Q12H IVPB 02/11/18 20:00 03/06/18 19:59 02/20/18 09:48 Robbie Johnston MD Feb 20, 2018 10:49"
[2018-02-20 12:00] VITALS: BP 99/54
--- NOTE | 2018-02-20 12:05 | Pulmonology Progress Note ---
Assessment/Plan Problems: (1) Pneumonia (2) Sepsis (3) Congenital heart disease, adult (4) Down syndrome (5) Mental retardation (6) Anxiety Assessment/Plan ASSESSMENT: The patient is a 67-year-old male with a history of mental retardation and chronic subdural hematomas, recently admitted to [facility] with tracheobronchitis and poor mucociliary clearance, now presenting with dehydration, mild troponin elevation, acute kidney injury, and possible right infrahilar infiltrate. PROBLEM LIST: 1. Respiratory failure 2. Right perihilar infiltrate, healthcare-associated pneumonia. 3. MRSA sepsis and pneumonia 4. Acute kidney injury, likely dehydration. 5. Mild troponin elevation, likely demand ischemia. 6. History of recurrent aspiration pneumonia in the past. 7. Chronic subdural hematoma. 8. Mental retardation. 9. Hypothyroidism. 10. Chronic right bundle-branch block. 11. Acute on chronic CVA 12. Elevated D-dimer with negative Duplex and VQ TREATMENT PLAN: 1. Monitor respiratory statis 2. BiPAP PRN and qHS 3. Titrate down FiO2 to keep SaO2 > 90%. 4. RTC and PRN HHN's, CPT 5. Mucinex and PRN Robitussin 6. Abx per ID, F/U Cx's 7. NPO, PEG when able 8. Monitor volumes 9. Hep SQ for DVT Px 10. FC Subjective Allergies: Coded Allergies: SULFA (SULFONAMIDE ANTIBIOTICS) (Verified Allergy, Unknown, 09/02/15) Subjective Tm 101.7, BiPAP ON now on 4L secretions better, less distress + cough + SOB TF' s held SP PICC Objective Last 24 Hour Vital Signs Date Time Temp Pulse Resp B/P (MAP) Pulse Ox O2 Delivery O2 Flow Rate FiO2 02/20/18 11:26 79 18 99 Nasal Cannula 4.0 36 02/20/18 11:15 72 16 96 Nasal Cannula 4.0 36 02/20/18 07:24 72 18 99 Nasal Cannula 4.0 36 02/20/18 07:15 Nasal Cannula 4.0 36 02/20/18 07:15 80 18 97 Nasal Cannula 4.0 36 02/20/18 07:15 97 Nasal Cannula 4.0 36 02/20/18 05:14 64 23 95 Facial 35 02/20/18 04:00 35 10/16/18 04:00 99.0 51 16 105/54 (71) 92 99.0 02/20/18 04:00 87 02/20/18 03:25 66 20 98 Bi-pap 35 02/20/18 03:15 58 18 96 Bi-pap 35 02/20/18 03:14 58 18 96 Facial 35 02/20/18 01:24 62 20 97 Facial 35 02/20/18 00:00 35 02/20/18 00:00 76 02/20/18 00:00 97.0 66 16 108/71 (83) 96 97.0 02/19/18 23:18 75 18 97 Nasal Cannula 36 02/19/18 23:11 73 18 97 Nasal Cannula 4.0 36 02/19/18 22:19 79 20 98 Facial 35 02/19/18 21:12 80 102/53 02/19/18 21:00 Nasal Cannula 4.0 02/19/18 20:00 77 02/19/18 20:00 97.2 80 22 102/53 (69) 100 97.2 02/19/18 19:44 88 18 96 Nasal Cannula 36 02/19/18 19:32 Nasal Cannula 4.0 36 02/19/18 19:32 83 18 98 Nasal Cannula 4.0 36 02/19/18 19:32 98 Nasal Cannula 4.0 36 02/19/18 16:00 99.0 101 16 124/43 (70) 94 99.0 02/19/18 16:00 4.0 02/19/18 16:00 91 02/19/18 15:48 101 18 96 Bi-pap 35 02/19/18 15:48 101 18 96 Nasal Cannula 4.0 36 02/19/18 13:18 101 20 96 Facial 35 Intake and Output 02/19/18 02/20/18 19:00 07:00 Intake Total 970 ml Output Total 300 ml 1000 ml Balance 670 ml -1000 ml IV Total 970 ml Output Urine Total 300 ml 1000 ml General Appearance: cachetic HEENT: normocephalic, atraumatic, anicteric, mucous membranes moist, other - BiPAP Respiratory/Chest: chest wall non-tender, rhonchi Cardiovascular: normal peripheral pulses, normal rate, regular rhythm Abdomen: normal bowel sounds, soft, non tender, no organomegaly, non distended , no mass Extremities: no cyanosis, no clubbing, no edema Microbiology Date/Time Source Procedure Growth Status 02/18/18 11:05 Blood Blood Culture - Preliminary NO GROWTH AFTER 24 HOURS Resulted 02/19/18 15:45 Femoral Central Line Catheter Tip Culture - Preliminary NO GROWTH Resulted Laboratory Tests 02/20/18 04:00: White Blood Count 17.4H, Red Blood Count 3.46L, Hemoglobin 10.9L, Hematocrit 33.7L, Mean Corpuscular Volume 97, Mean Corpuscular Hemoglobin 31.5H, Mean Corpuscular Hemoglobin Concent 32.4, Red Cell Distribution Width 13.9, Platelet Count 236, Mean Platelet Volume 7.6, Neutrophils (%) (Auto) , Lymphocytes (%) ( Auto) , Monocytes (%) (Auto) , Eosinophils (%) (Auto) , Basophils (%) (Auto) , Differential Total Cells Counted 100, Neutrophils % (Manual) 86H, Lymphocytes % (Manual) 9L, Monocytes % (Manual) 5, Eosinophils % (Manual) 0, Basophils % ( Manual) 0, Band Neutrophils 0, Platelet Estimate Adequate, Platelet Morphology Normal, Hypochromasia 1+, Anisocytosis 1+, Sodium Level 137, Potassium Level 3.4L, Chloride Level 103, Carbon Dioxide Level 29, Anion Gap 5, Blood Urea Nitrogen 17, Creatinine 1.0, Estimat Glomerular Filtration Rate > 60, Glucose Level 281#H, Calcium Level 8.6, Pro-B-Type Natriuretic Peptide 1153H Current Medications Medications (Trade) Dose Ordered Sig/Eddy Route PRN Reason Start Time Stop Time Status Last Admin Dose Admin Acetaminophen (Tylenol) 650 mg Q6H PRN NG Mild Pain/Temp > 100.5 02/11/18 18:18 03/12/18 18:17 02/19/18 03:50 Albuterol/ Ipratropium (Albuterol/ Ipratropium) 3 ml Q4HRT HHN 02/17/18 19:00 02/22/18 18:59 02/20/18 11:14 Aspirin (ASA) 81 mg DAILY NG 02/12/18 09:00 03/14/18 08:59 02/18/18 08:58 Atorvastatin Calcium (Lipitor) 10 mg BEDTIME NG 02/11/18 21:00 03/09/18 20:59 02/19/18 21:12 Calcium Carbonate (Tums) 500 mg THREE TIMES A DAY GT 02/12/18 09:00 03/09/18 08:59 02/19/18 18:00 Chlorhexidine Gluconate (Tesha-Hex 2%) 1 applic DAILY@2000 TOPIC 02/19/18 20:00 03/21/18 19:59 02/19/18 21:11 Dextrose/Sodium Chloride 1,000 ml @ 75 mls/hr [id number] IV 02/18/18 20:00 03/20/18 19:59 02/19/18 21:13 Docusate Sodium (Colace) 100 mg TWICE A DAY NG 02/12/18 09:00 03/13/18 08:59 02/19/18 18:00 Guaifenesin (Robitussin) 100 mg Q4H PRN NG For Cough 02/13/18 13:45 03/14/18 18:14 Heparin Sodium (Porcine) (Heparin 5000 units/ml) 5,000 units EVERY 8 HOURS SUBQ 02/11/18 22:00 03/09/18 13:59 02/18/18 13:10 Levetiracetam (Keppra) 1,000 mg Q12HR NG 02/16/18 21:00 03/18/18 20:59 02/19/18 21:11 Levothyroxine Sodium (Synthroid) 125 mcg DAILY NG 02/17/18 09:00 03/19/18 08:59 02/18/18 08:58 Magnesium Hydroxide (Mom) 30 ml HSPRN PRN NG Constipation 02/11/18 21:00 03/09/18 20:59 Meropenem 1 gm/ Sodium Chloride 55 ml @ 110 mls/hr Q8H IVPB 02/18/18 11:00 02/23/18 10:59 02/20/18 10:22 Metoprolol Tartrate (Lopressor) 5 mg Q4H PRN IVP hr>130 02/11/18 18:19 03/09/18 18:18 Metoprolol Tartrate (Lopressor) 12.5 mg Q12HR NG 02/11/18 21:00 03/09/18 08:59 02/19/18 21:12 Olanzapine (ZyPREXA) 5 mg DAILY@2100 NG 02/11/18 21:00 03/12/18 20:59 02/19/18 21:11 Pantoprazole (Protonix) 40 mg DAILY IVP 02/12/18 09:00 03/09/18 09:20 02/20/18 09:48 Triamcinolone Acetonide (Kenalog 0.025% Oint) 1 applic THREE TIMES A DAY TOPIC 02/14/18 18:00 03/16/18 17:59 02/20/18 09:48 Vancomycin HCl (Vanco rx to dose) 1 ea DAILY PRN MISC PER PHARMACY 02/12/18 09:00 03/09/18 07:29 Vancomycin HCl 500 mg/Dextrose 110 ml @ 110 mls/hr Q12H IVPB 02/11/18 20:00 03/06/18 19:59 02/20/18 09:48 Sae Forrest MD Feb 20, 2018 12:05
[2018-02-20] MEDS: D5 1/2NS 1,000 ML IV SCH ×2 (13:13→16:45)
[2018-02-20 16:00] VITALS: BP 91/53
--- NOTE | 2018-02-20 16:26 | Cardiology Progress Note ---
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 pneumonia arf hs of svt chronic subdural hematoma eczema echo noted normal lv systolic function bp seems lower today got diuretic yest had fever yest now afebrile repeat blood cx neg more than 5 days and another set neg after 24 hours no svt remains on bb awaits peg iv abx will repeat echo this week Subjective ROS Limited/Unobtainable: Yes Subjective appear calm and dry no sig cough during my evaluation Objective Last 24 Hour Vital Signs Date Time Temp Pulse Resp B/P (MAP) Pulse Ox O2 Delivery O2 Flow Rate FiO2 02/20/18 15:52 81 16 97 Nasal Cannula 4.0 36 02/20/18 12:00 4.0 02/20/18 12:00 90 02/20/18 12:00 97.1 77 20 99/54 (69) 98 97.1 02/20/18 11:26 79 18 99 Nasal Cannula 4.0 36 02/20/18 11:15 72 16 96 Nasal Cannula 4.0 36 02/20/18 09:00 Nasal Cannula 4.0 02/20/18 08:00 4.0 02/20/18 08:00 97.3 95 20 126/78 (94) 99 97.3 02/20/18 08:00 88 02/20/18 07:24 72 18 99 Nasal Cannula 4.0 36 02/20/18 07:15 Nasal Cannula 4.0 36 02/20/18 07:15 80 18 97 Nasal Cannula 4.0 36 02/20/18 07:15 97 Nasal Cannula 4.0 36 02/20/18 05:14 64 23 95 Facial 35 02/20/18 04:00 35 02/20/18 04:00 99.0 51 16 105/54 (71) 92 99.0 02/20/18 04:00 87 02/20/18 03:25 66 20 98 Bi-pap 35 02/20/18 03:15 58 18 96 Bi-pap 35 02/20/18 03:14 58 18 96 Facial 35 02/20/18 01:24 62 20 97 Facial 35 02/20/18 00:00 35 02/20/18 00:00 76 02/20/18 00:00 97.0 66 16 108/71 (83) 96 97.0 02/19/18 23:18 75 18 97 Nasal Cannula 36 02/19/18 23:11 73 18 97 Nasal Cannula 4.0 36 02/19/18 22:19 79 20 98 Facial 35 02/19/18 21:12 80 102/53 02/19/18 21:00 Nasal Cannula 4.0 02/19/18 20:00 77 02/19/18 20:00 97.2 80 22 102/53 (69) 100 97.2 02/19/18 19:44 88 18 96 Nasal Cannula 36 02/19/18 19:32 Nasal Cannula 4.0 36 02/19/18 19:32 83 18 98 Nasal Cannula 4.0 36 02/19/18 19:32 98 Nasal Cannula 4.0 36 General Appearance: no apparent distress, alert Neck: supple Respiratory/Chest: lungs clear Abdomen: normal bowel sounds, non tender, soft Extremities: no swelling Intake and Output 02/19/18 02/20/18 19:00 07:00 Intake Total 970 ml Output Total 300 ml 1000 ml Balance 670 ml -1000 ml IV Total 970 ml Output Urine Total 300 ml 1000 ml Laboratory Tests Test 02/20/18 04:00 White Blood Count 17.4 K/UL (4.8-10.8) H Red Blood Count 3.46 M/UL (4.70-6.10) L Hemoglobin 10.9 G/DL (14.2-18.0) L Hematocrit 33.7 % (42.0-52.0) L Mean Corpuscular Volume 97 FL (80-99) Mean Corpuscular Hemoglobin 31.5 PG (27.0-31.0) H Mean Corpuscular Hemoglobin Concent 32.4 G/DL (32.0-36.0) Red Cell Distribution Width 13.9 % (11.6-14.8) Platelet Count 236 K/UL (150-450) Mean Platelet Volume 7.6 FL (6.5-10.1) Neutrophils (%) (Auto) % (45.0-75.0) Lymphocytes (%) (Auto) % (20.0-45.0) Monocytes (%) (Auto) % (1.0-10.0) Eosinophils (%) (Auto) % (0.0-3.0) Basophils (%) (Auto) % (0.0-2.0) Differential Total Cells Counted 100 Neutrophils % (Manual) 86 % (45-75) H Lymphocytes % (Manual) 9 % (20-45) L Monocytes % (Manual) 5 % (1-10) Eosinophils % (Manual) 0 % (0-3) Basophils % (Manual) 0 % (0-2) Band Neutrophils 0 % (0-8) Platelet Estimate Adequate Platelet Morphology Normal Hypochromasia 1+ Anisocytosis 1+ Sodium Level 137 MMOL/L (136-145) Potassium Level 3.4 MMOL/L (3.5-5.1) L Chloride Level 103 MMOL/L (98-107) Carbon Dioxide Level 29 MMOL/L (21-32) Anion Gap 5 mmol/L (5-15) Blood Urea Nitrogen 17 mg/dL (7-18) Creatinine 1.0 MG/DL (0.55-1.30) Estimat Glomerular Filtration Rate > 60 mL/min (>60) Glucose Level 281 MG/DL (74-106) #H Calcium Level 8.6 MG/DL (8.5-10.1) Pro-B-Type Natriuretic Peptide 1153 pg/mL (0-125) H Microbiology Date/Time Source Procedure Growth Status 02/18/18 11:05 Blood Blood Culture - Preliminary NO GROWTH AFTER 24 HOURS Resulted 02/19/18 15:45 Femoral Central Line Catheter Tip Culture - Preliminary NO GROWTH Resulted Amos Sue MD Feb 20, 2018 16:26
--- NOTE | 2018-02-20 19:48 | General Progress Note ---
Assessment/Plan Status: progressing Assessment/Plan ASSESSMENT: 1. Shortness of breath, possibly secondary to pneumonia, possible sepsis. 2. Acute respiratory failure requiring BiPAP. 3. Acute kidney injury. 4. Elevated troponin, possibly from demand ischemia. 5. Developmental delay. 6. Dysphagia. 7. Psoriasis. 8. Acute left cerebellar infarction 9. MRSA bacteremia/Pneumonia/?endocarditis 10. epistaxis, secondary to trauma from NGT and suctioning 11. sepsis/recurrent asspiration pneumonia? 12. Vascular congestion 13. hypokalemia PLAN: 1. Continue the patient on BiPAP support prn 2. Monitor vitals and I and O's. 3. advance NGT and start diet in cxr confirmed palcement 4. The patient was started on IV vancomycin and Zosyn. 5. To continue breathing treatment with frequent suctioning p.r.n. 6. Continue halfway medications. 7. Monitor troponin. 8. Heparin for DVT prophylaxis. 9. Protonix for GI prophylaxis. 10. Dr. Forrest, Pulmonary consult and Dr. Johnston, ID consult. 11. change aspirin to 81 mg daily 12. fu Echo and carotic us and venous duplex 13 gi consult appreciated, NGT for now repeat swallow eval later when more stable 14. NGT for meds and tube feeding 15. repeat Blood cultures to check for clearance of MRSA conitnue supportive care continue telemetry VQ scan negative for PE monitor labs ENT consult to evaluate for epistaxis, will check am cbc and INR/PTT PICC line placemetn for IV vanco for 19 more days for possible endocarditis PEG placement per Dr. Bryan postponed due to fever I spoke with Dr. Mckenna from [facility] who agrees to PEG for consent can call [phone] Nini Baltazar director or for Emergency [phone] PICC line placed 02-19-18 right groin line removed 02-19-18, fu cultures now on Vanco and Meopenam s/p iv lasix one dose yesterday with less congestion today echo to be repeated per cardiology awaiting PEG when more stable NPO kcl 20 meq once Subjective Date patient seen: Feb 20, 2018 ROS Limited/Unobtainable: Yes Allergies: Coded Allergies: SULFA (SULFONAMIDE ANTIBIOTICS) (Verified Allergy, Unknown, 09/02/15) Subjective appears slightly improved Objective Last 24 Hour Vital Signs Date Time Temp Pulse Resp B/P (MAP) Pulse Ox O2 Delivery O2 Flow Rate FiO2 02/20/18 16:03 82 18 99 Nasal Cannula 4.0 36 02/20/18 16:00 96.7 83 20 91/53 (66) 94 96.7 02/20/18 16:00 4.0 02/20/18 16:00 83 02/20/18 15:52 81 16 97 Nasal Cannula 4.0 36 02/20/18 12:00 4.0 02/20/18 12:00 90 02/20/18 12:00 97.1 77 20 99/54 (69) 98 97.1 02/20/18 11:26 79 18 99 Nasal Cannula 4.0 36 02/20/18 11:15 72 16 96 Nasal Cannula 4.0 36 02/20/18 09:00 Nasal Cannula 4.0 02/20/18 08:00 4.0 02/20/18 08:00 97.3 95 20 126/78 (94) 99 97.3 02/20/18 08:00 88 02/20/18 07:24 72 18 99 Nasal Cannula 4.0 36 02/20/18 07:15 Nasal Cannula 4.0 36 02/20/18 07:15 80 18 97 Nasal Cannula 4.0 36 02/20/18 07:15 97 Nasal Cannula 4.0 36 02/20/18 05:14 64 23 95 Facial 35 02/20/18 04:00 35 02/20/18 04:00 99.0 51 16 105/54 (71) 92 99.0 02/20/18 04:00 87 02/20/18 03:25 66 20 98 Bi-pap 35 02/20/18 03:15 58 18 96 Bi-pap 35 02/20/18 03:14 58 18 96 Facial 35 02/20/18 01:24 62 20 97 Facial 35 02/20/18 00:00 35 02/20/18 00:00 76 02/20/18 00:00 97.0 66 16 108/71 (83) 96 97.0 02/19/18 23:18 75 18 97 Nasal Cannula 36 02/19/18 23:11 73 18 97 Nasal Cannula 4.0 36 02/19/18 22:19 79 20 98 Facial 35 02/19/18 21:12 80 102/53 02/19/18 21:00 Nasal Cannula 4.0 02/19/18 20:00 77 02/19/18 20:00 97.2 80 22 102/53 (69) 100 97.2 Intake and Output 02/19/18 02/20/18 19:00 07:00 Intake Total 970 ml Output Total 300 ml 1000 ml Balance 670 ml -1000 ml IV Total 970 ml Output Urine Total 300 ml 1000 ml Laboratory Tests 02/20/18 04:00: White Blood Count 17.4H, Red Blood Count 3.46L, Hemoglobin 10.9L, Hematocrit 33.7L, Mean Corpuscular Volume 97, Mean Corpuscular Hemoglobin 31.5H, Mean Corpuscular Hemoglobin Concent 32.4, Red Cell Distribution Width 13.9, Platelet Count 236, Mean Platelet Volume 7.6, Neutrophils (%) (Auto) , Lymphocytes (%) ( Auto) , Monocytes (%) (Auto) , Eosinophils (%) (Auto) , Basophils (%) (Auto) , Differential Total Cells Counted 100, Neutrophils % (Manual) 86H, Lymphocytes % (Manual) 9L, Monocytes % (Manual) 5, Eosinophils % (Manual) 0, Basophils % ( Manual) 0, Band Neutrophils 0, Platelet Estimate Adequate, Platelet Morphology Normal, Hypochromasia 1+, Anisocytosis 1+, Sodium Level 137, Potassium Level 3.4L, Chloride Level 103, Carbon Dioxide Level 29, Anion Gap 5, Blood Urea Nitrogen 17, Creatinine 1.0, Estimat Glomerular Filtration Rate > 60, Glucose Level 281#H, Calcium Level 8.6, Pro-B-Type Natriuretic Peptide 1153H Height (Feet): 5 Height (Inches): 2.00 Weight (Pounds): 128 General Appearance: alert EENT: PERRL/EOMI, pharynx normal Neck: non-tender, supple Cardiovascular: normal rate, regular rhythm, no gallop/murmur, no JVD Respiratory/Chest: chest wall non-tender, normal breath sounds, no respiratory distress Abdomen: non tender, soft, no mass Extremities: non-tender, normal inspection, no calf tenderness Edema: no edema noted Arm (L), no edema noted Arm (R), no edema noted Leg (L), no edema noted Leg (R), no edema noted Pedal (L), no edema noted Pedal (R), no edema noted Generalized Diann Silver MD Feb 20, 2018 19:48
[2018-02-20 20:00] VITALS: BP 102/54
--- NOTE | 2018-02-20 21:58 | General Progress Note ---
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 - pneumonitis - failed swallow - h/o CHF - Fever and Leukocytosis - improving Recommendations - PEG placement rescheduled for am - Abx - Hold TF until PEG placed (in case repeatedly aspirating) - optimize pulmonary parameters Subjective Allergies: Coded Allergies: SULFA (SULFONAMIDE ANTIBIOTICS) (Verified Allergy, Unknown, 09/02/15) Subjective Above noted doing better fever down WBC mildly lower Objective Last 24 Hour Vital Signs Date Time Temp Pulse Resp B/P (MAP) Pulse Ox O2 Delivery O2 Flow Rate FiO2 02/20/18 20:16 98 Nasal Cannula 3.0 32 02/20/18 20:16 Nasal Cannula 3.0 32 02/20/18 20:00 64 18 98 Nasal Cannula 3.0 32 02/20/18 19:50 80 18 96 Nasal Cannula 3.0 32 02/20/18 16:03 82 18 99 Nasal Cannula 4.0 36 02/20/18 16:00 96.7 83 20 91/53 (66) 94 96.7 02/20/18 16:00 4.0 02/20/18 16:00 83 02/20/18 15:52 81 16 97 Nasal Cannula 4.0 36 02/20/18 12:00 4.0 02/20/18 12:00 90 02/20/18 12:00 97.1 77 20 99/54 (69) 98 97.1 02/20/18 11:26 79 18 99 Nasal Cannula 4.0 36 02/20/18 11:15 72 16 96 Nasal Cannula 4.0 36 02/20/18 09:00 Nasal Cannula 4.0 02/20/18 08:00 4.0 02/20/18 08:00 97.3 95 20 126/78 (94) 99 97.3 02/20/18 08:00 88 02/20/18 07:24 72 18 99 Nasal Cannula 4.0 36 02/20/18 07:15 Nasal Cannula 4.0 36 02/20/18 07:15 80 18 97 Nasal Cannula 4.0 36 02/20/18 07:15 97 Nasal Cannula 4.0 36 02/20/18 05:14 64 23 95 Facial 35 02/20/18 04:00 35 02/20/18 04:00 99.0 51 16 105/54 (71) 92 99.0 02/20/18 04:00 87 02/20/18 03:25 66 20 98 Bi-pap 35 02/20/18 03:15 58 18 96 Bi-pap 35 02/20/18 03:14 58 18 96 Facial 35 02/20/18 01:24 62 20 97 Facial 35 02/20/18 00:00 35 02/20/18 00:00 76 02/20/18 00:00 97.0 66 16 108/71 (83) 96 97.0 02/19/18 23:18 75 18 97 Nasal Cannula 36 02/19/18 23:11 73 18 97 Nasal Cannula 4.0 36 02/19/18 22:19 79 20 98 Facial 35 Intake and Output 02/19/18 02/20/18 19:00 07:00 Intake Total 970 ml Output Total 300 ml 1000 ml Balance 670 ml -1000 ml IV Total 970 ml Output Urine Total 300 ml 1000 ml Laboratory Tests 02/20/18 04:00: White Blood Count 17.4H, Red Blood Count 3.46L, Hemoglobin 10.9L, Hematocrit 33.7L, Mean Corpuscular Volume 97, Mean Corpuscular Hemoglobin 31.5H, Mean Corpuscular Hemoglobin Concent 32.4, Red Cell Distribution Width 13.9, Platelet Count 236, Mean Platelet Volume 7.6, Neutrophils (%) (Auto) , Lymphocytes (%) ( Auto) , Monocytes (%) (Auto) , Eosinophils (%) (Auto) , Basophils (%) (Auto) , Differential Total Cells Counted 100, Neutrophils % (Manual) 86H, Lymphocytes % (Manual) 9L, Monocytes % (Manual) 5, Eosinophils % (Manual) 0, Basophils % ( Manual) 0, Band Neutrophils 0, Platelet Estimate Adequate, Platelet Morphology Normal, Hypochromasia 1+, Anisocytosis 1+, Sodium Level 137, Potassium Level 3.4L, Chloride Level 103, Carbon Dioxide Level 29, Anion Gap 5, Blood Urea Nitrogen 17, Creatinine 1.0, Estimat Glomerular Filtration Rate > 60, Glucose Level 281#H, Calcium Level 8.6, Pro-B-Type Natriuretic Peptide 1153H Height (Feet): 5 Height (Inches): 2.00 Weight (Pounds): 128 Objective WDWN WM NCAT supple Chest b/l Ronchi RR abd soft ND no edema OBS Khorrami,Payman MD Feb 20, 2018 21:58
[2018-02-20] MEDS: Dyna-Hex 2% Top Sol 2oz TOPIC SCH (23:17)
[2018-02-21] VITALS (7 sets, daily range): BP systolic 87–131; BP diastolic 48–72
[2018-02-21] MEDS: Albuterol/Ipratropium 3ml neb HHN SCH ×6 (02:08→22:11)
[2018-02-21] MEDS: Meropenem 1 GM in NS 55 ML IVPB SCH ×3 (03:16→19:21)
[2018-02-21] MEDS: D5 1/2NS 1,000 ML IV SCH (03:50)
[2018-02-21] MEDS: Heparin 5000 units/ml inj SUBQ SCH ×3 (06:22→22:00)
[2018-02-21 07:10] LABS: BASOPHILS % (AUTO) 0.5 % (0.0-2.0); HEMATOCRIT 33.6 % (42.0-52.0); HEMOGLOBIN 10.8 G/DL (14.2-18.0); MEAN CORPUSCULAR VOLUME 98 FL (80-99); MONOCYTES % (AUTO) 7.1 % (1.0-10.0); NEUTROPHILS % (AUTO) 80.4 % (45.0-75.0); PLATELET COUNT 249 K/UL (150-450); RED BLOOD COUNT 3.43 M/UL (4.70-6.10); RED CELL DISTRIBUTION WIDTH 14.1 % (11.6-14.8); WHITE BLOOD COUNT 10.8 K/UL (4.8-10.8)
[2018-02-21 07:31] LABS: ANION GAP 6 mmol/L (5-15); BLOOD UREA NITROGEN 14 mg/dL (7-18); CALCIUM 8.1 MG/DL (8.5-10.1); CARBON DIOXIDE 27 MMOL/L (21-32); CHLORIDE 101 MMOL/L (98-107); CREATININE 0.9 MG/DL (0.55-1.30); POTASSIUM 3.5 MMOL/L (3.5-5.1); SODIUM 134 MMOL/L (136-145)
[2018-02-21] MEDS: Vancomycin 500 MG in D5W 110 ML IVPB SCH ×2 (08:15→21:00)
[2018-02-21] MEDS: Tums 500mg GT SCH ×3 (08:26→18:51)
[2018-02-21] MEDS: Pantoprazole Inj IVP SCH (08:26)
[2018-02-21] MEDS: levETIRAcetam 500mg/5ml Liquid NG SCH ×2 (08:26→21:32)
[2018-02-21] MEDS: Aspirin Baby 81mg NG SCH (08:26)
[2018-02-21] MEDS: Levothyroxine 125mcg tab NG SCH (08:26)
[2018-02-21] MEDS: Triamcinolone 0.025% oint TOPIC SCH ×3 (08:26→18:51)
[2018-02-21] MEDS: Docusate 100mg/10ml Liq NG SCH ×2 (08:26→18:50)
[2018-02-21] MEDS: Metoprolol Tartrate 12.5mg TAB NG SCH ×2 (08:27→21:33)
--- NOTE | 2018-02-21 10:17 | Infectious Diseases Prog Note ---
"Assessment/Plan Assessment/Plan antibiotics : vancomycin iv, meropenem A 1. MRSA | e.coli pneumonia 2. respiratory failure resolved 3. subdural hematoma 4. mental retardation 5. MRSA sepsis ? endocarditis 6. CVA 7. leucocytosis improving P 1. continue vancomycin iv 13 more days 2. continue meropenem 3. will follow up cultures Subjective ROS Limited/Unobtainable: Yes Allergies: Coded Allergies: SULFA (SULFONAMIDE ANTIBIOTICS) (Verified Allergy, Unknown, 09/02/15) Objective Vital Signs Last 24 Hour Vital Signs Date Time Temp Pulse Resp B/P (MAP) Pulse Ox O2 Delivery O2 Flow Rate FiO2 02/21/18 09:00 Nasal Cannula 4.0 02/21/18 08:27 94 131/92 02/21/18 08:06 71 28 97 Nasal Cannula 2.0 28 02/21/18 08:02 72 23 97 Nasal Cannula 3.0 32 02/21/18 08:02 Nasal Cannula 3.0 32 02/21/18 08:01 98 Nasal Cannula 3.0 32 02/21/18 08:00 93 02/21/18 08:00 4.0 02/21/18 08:00 98.4 99 18 131/72 (91) 96 98.4 02/21/18 06:07 89 19 95 02/21/18 05:50 88 19 97 Full Face 35 02/21/18 04:00 85 02/21/18 04:00 35 02/21/18 04:00 97.9 84 19 103/48 (66) 94 97.9 02/21/18 02:15 61 23 96 Full Face 35 02/21/18 02:14 72 28 97 Bi-pap 35 02/21/18 02:00 60 23 94 Bi-pap 35 02/21/18 01:00 62 24 95 Facial 35 02/21/18 00:00 97.2 82 18 87/57 (67) 93 97.2 02/21/18 00:00 82 02/21/18 00:00 35 02/20/18 23:43 72 28 97 Bi-pap 35 02/20/18 23:38 70 24 95 Bi-pap 35 02/20/18 22:30 60 24 96 Facial 35 02/20/18 21:00 Nasal Cannula 4.0 02/20/18 21:00 56 102/54 02/20/18 20:16 98 Nasal Cannula 3.0 32 02/20/18 20:16 Nasal Cannula 3.0 32 02/20/18 20:00 72 02/20/18 20:00 4.0 02/20/18 20:00 64 18 98 Nasal Cannula 3.0 32 02/20/18 20:00 97.2 56 18 102/54 (70) 97 97.2 02/20/18 19:50 80 18 96 Nasal Cannula 3.0 32 02/20/18 16:03 82 18 99 Nasal Cannula 4.0 36 02/20/18 16:00 96.7 83 20 91/53 (66) 94 96.7 02/20/18 16:00 4.0 02/20/18 16:00 83 02/20/18 15:52 81 16 97 Nasal Cannula 4.0 36 02/20/18 12:00 4.0 02/20/18 12:00 90 02/20/18 12:00 97.1 77 20 99/54 (69) 98 97.1 02/20/18 11:26 79 18 99 Nasal Cannula 4.0 36 02/20/18 11:15 72 16 96 Nasal Cannula 4.0 36 Height (Feet): 5 Height (Inches): 2.00 Weight (Pounds): 126 Respiratory/Chest: lungs clear Cardiovascular: normal rate, regular rhythm, no gallop/murmur Abdomen: soft, non tender Extremities: no edema, other - decreased erythema, left arm PICC Microbiology Date/Time Source Procedure Growth Status 02/18/18 11:05 Blood Blood Culture - Preliminary NO GROWTH AFTER 48 HOURS Resulted 02/19/18 15:45 Femoral Central Line Catheter Tip Culture - Preliminary NO GROWTH AFTER 24 HOURS Resulted Laboratory Tests Test 02/21/18 06:30 White Blood Count 10.8 K/UL (4.8-10.8) Red Blood Count 3.43 M/UL (4.70-6.10) L Hemoglobin 10.8 G/DL (14.2-18.0) L Hematocrit 33.6 % (42.0-52.0) L Mean Corpuscular Volume 98 FL (80-99) Mean Corpuscular Hemoglobin 31.5 PG (27.0-31.0) H Mean Corpuscular Hemoglobin Concent 32.2 G/DL (32.0-36.0) Red Cell Distribution Width 14.1 % (11.6-14.8) Platelet Count 249 K/UL (150-450) Mean Platelet Volume 8.2 FL (6.5-10.1) Neutrophils (%) (Auto) 80.4 % (45.0-75.0) H Lymphocytes (%) (Auto) 10.0 % (20.0-45.0) L Monocytes (%) (Auto) 7.1 % (1.0-10.0) Eosinophils (%) (Auto) 2.0 % (0.0-3.0) Basophils (%) (Auto) 0.5 % (0.0-2.0) Sodium Level 134 MMOL/L (136-145) L Potassium Level 3.5 MMOL/L (3.5-5.1) Chloride Level 101 MMOL/L (98-107) Carbon Dioxide Level 27 MMOL/L (21-32) Anion Gap 6 mmol/L (5-15) Blood Urea Nitrogen 14 mg/dL (7-18) Creatinine 0.9 MG/DL (0.55-1.30) Estimat Glomerular Filtration Rate > 60 mL/min (>60) Glucose Level 438 MG/DL (74-106) #H Calcium Level 8.1 MG/DL (8.5-10.1) L Pro-B-Type Natriuretic Peptide 870 pg/mL (0-125) H Current Medications Medications (Trade) Dose Ordered Sig/Eddy Route PRN Reason Start Time Stop Time Status Last Admin Dose Admin Acetaminophen (Tylenol) 650 mg Q6H PRN NG Mild Pain/Temp > 100.5 02/11/18 18:18 03/12/18 18:17 02/19/18 03:50 Albuterol/ Ipratropium (Albuterol/ Ipratropium) 3 ml Q4HRT HHN 02/17/18 19:00 02/22/18 18:59 02/21/18 08:01 Aspirin (ASA) 81 mg DAILY NG 02/12/18 09:00 03/14/18 08:59 02/21/18 08:26 Atorvastatin Calcium (Lipitor) 10 mg BEDTIME NG 02/11/18 21:00 03/09/18 20:59 02/20/18 23:18 Calcium Carbonate (Tums) 500 mg THREE TIMES A DAY GT 02/12/18 09:00 03/09/18 08:59 02/21/18 08:26 Chlorhexidine Gluconate (Tesha-Hex 2%) 1 applic DAILY@2000 TOPIC 02/19/18 20:00 03/21/18 19:59 02/20/18 23:17 Dextrose/Sodium Chloride 1,000 ml @ 60 mls/hr [id number] IV 02/20/18 16:45 03/22/18 16:44 02/21/18 03:50 Docusate Sodium (Colace) 100 mg TWICE A DAY NG 02/12/18 09:00 03/13/18 08:59 02/21/18 08:26 Guaifenesin (Robitussin) 100 mg Q4H PRN NG For Cough 02/13/18 13:45 03/14/18 18:14 Heparin Sodium (Porcine) (Heparin 5000 units/ml) 5,000 units EVERY 8 HOURS SUBQ 02/11/18 22:00 03/09/18 13:59 02/21/18 06:22 Levetiracetam (Keppra) 1,000 mg Q12HR NG 02/16/18 21:00 03/18/18 20:59 02/21/18 08:26 Levothyroxine Sodium (Synthroid) 125 mcg DAILY NG 02/17/18 09:00 03/19/18 08:59 02/21/18 08:26 Magnesium Hydroxide (Mom) 30 ml HSPRN PRN NG Constipation 02/11/18 21:00 03/09/18 20:59 Meropenem 1 gm/ Sodium Chloride 55 ml @ 110 mls/hr Q8H IVPB 02/18/18 11:00 02/23/18 10:59 02/21/18 03:16 Metoprolol Tartrate (Lopressor) 5 mg Q4H PRN IVP hr>130 02/11/18 18:19 03/09/18 18:18 Metoprolol Tartrate (Lopressor) 12.5 mg Q12HR NG 02/11/18 21:00 03/09/18 08:59 02/21/18 08:27 Olanzapine (ZyPREXA) 5 mg DAILY@2100 NG 02/11/18 21:00 03/12/18 20:59 02/20/18 23:19 Pantoprazole (Protonix) 40 mg DAILY IVP 02/12/18 09:00 03/09/18 09:20 02/21/18 08:26 Triamcinolone Acetonide (Kenalog 0.025% Oint) 1 applic THREE TIMES A DAY TOPIC 02/14/18 18:00 03/16/18 17:59 02/21/18 08:26 Vancomycin HCl (Vanco rx to dose) 1 ea DAILY PRN MISC PER PHARMACY 02/12/18 09:00 03/09/18 07:29 Vancomycin HCl 500 mg/Dextrose 110 ml @ 110 mls/hr Q12H IVPB 02/11/18 20:00 03/06/18 19:59 02/21/18 08:15 Robbie Johnston MD Feb 21, 2018 10:17"
--- NOTE | 2018-02-21 12:06 | Pulmonology Progress Note ---
Assessment/Plan Problems: (1) Pneumonia (2) Sepsis (3) Congenital heart disease, adult (4) Down syndrome (5) Mental retardation (6) Anxiety Assessment/Plan ASSESSMENT: The patient is a 67-year-old male with a history of mental retardation and chronic subdural hematomas, recently admitted to [facility] with tracheobronchitis and poor mucociliary clearance, now presenting with dehydration, mild troponin elevation, acute kidney injury, and possible right infrahilar infiltrate. PROBLEM LIST: 1. Respiratory failure 2. Right perihilar infiltrate, healthcare-associated pneumonia. 3. MRSA sepsis and pneumonia 4. Acute kidney injury, likely dehydration. 5. Mild troponin elevation, likely demand ischemia. 6. History of recurrent aspiration pneumonia in the past. 7. Chronic subdural hematoma. 8. Mental retardation. 9. Hypothyroidism. 10. Chronic right bundle-branch block. 11. Acute on chronic CVA 12. Elevated D-dimer with negative Duplex and VQ TREATMENT PLAN: 1. Monitor respiratory statis 2. BiPAP PRN and qHS 3. Titrate down FiO2 to keep SaO2 > 90%. 4. RTC and PRN HHN's, CPT 5. Mucomyst HHN's 6. Abx per ID, F/U Cx's 7. NPO, PEG tommorrow, AGREE with holding NGTF's 8. Monitor volumes 9. Hep SQ for DVT Px 10. FC Subjective Allergies: Coded Allergies: SULFA (SULFONAMIDE ANTIBIOTICS) (Verified Allergy, Unknown, 09/02/15) Subjective AFVSS, O2 needs stable, leukocytosis resolved, less distress, secretions unchanged, no F/C, plan for PEG tommorrow, NGTF's held Objective Last 24 Hour Vital Signs Date Time Temp Pulse Resp B/P (MAP) Pulse Ox O2 Delivery O2 Flow Rate FiO2 02/21/18 09:00 Nasal Cannula 4.0 02/21/18 08:27 94 131/92 02/21/18 08:06 71 28 97 Nasal Cannula 2.0 28 02/21/18 08:02 72 23 97 Nasal Cannula 3.0 32 02/21/18 08:02 Nasal Cannula 3.0 32 02/21/18 08:01 98 Nasal Cannula 3.0 32 02/21/18 08:00 93 02/21/18 08:00 4.0 02/21/18 08:00 98.4 99 18 131/72 (91) 96 98.4 02/21/18 06:07 89 19 95 02/21/18 05:50 88 19 97 Full Face 35 02/21/18 04:00 85 02/21/18 04:00 35 02/21/18 04:00 97.9 84 19 103/48 (66) 94 97.9 02/21/18 02:15 61 23 96 Full Face 35 02/21/18 02:14 72 28 97 Bi-pap 35 02/21/18 02:00 60 23 94 Bi-pap 35 02/21/18 01:00 62 24 95 Facial 35 02/21/18 00:00 97.2 82 18 87/57 (67) 93 97.2 02/21/18 00:00 82 02/21/18 00:00 35 02/20/18 23:43 72 28 97 Bi-pap 35 02/20/18 23:38 70 24 95 Bi-pap 35 02/20/18 22:30 60 24 96 Facial 35 02/20/18 21:00 Nasal Cannula 4.0 02/20/18 21:00 56 102/54 02/20/18 20:16 98 Nasal Cannula 3.0 32 02/20/18 20:16 Nasal Cannula 3.0 32 02/20/18 20:00 72 02/20/18 20:00 4.0 02/20/18 20:00 64 18 98 Nasal Cannula 3.0 32 02/20/18 20:00 97.2 56 18 102/54 (70) 97 97.2 02/20/18 19:50 80 18 96 Nasal Cannula 3.0 32 02/20/18 16:03 82 18 99 Nasal Cannula 4.0 36 02/20/18 16:00 96.7 83 20 91/53 (66) 94 96.7 02/20/18 16:00 4.0 02/20/18 16:00 83 02/20/18 15:52 81 16 97 Nasal Cannula 4.0 36 Intake and Output 02/20/18 02/21/18 19:00 07:00 Intake Total 1550 ml Output Total 300 ml 1000 ml Balance -300 ml 550 ml IV Total 1550 ml Output Urine Total 300 ml 1000 ml General Appearance: cachetic HEENT: normocephalic, atraumatic, anicteric, mucous membranes moist Respiratory/Chest: rhonchi Cardiovascular: normal peripheral pulses, normal rate, regular rhythm Abdomen: normal bowel sounds, soft, non tender, no organomegaly, non distended , no mass Extremities: no cyanosis, no clubbing, no edema Microbiology Date/Time Source Procedure Growth Status 02/19/18 15:45 Femoral Central Line Catheter Tip Culture - Preliminary NO GROWTH AFTER 24 HOURS Resulted Laboratory Tests 02/21/18 06:30: White Blood Count 10.8, Red Blood Count 3.43L, Hemoglobin 10.8L, Hematocrit 33.6L, Mean Corpuscular Volume 98, Mean Corpuscular Hemoglobin 31.5H, Mean Corpuscular Hemoglobin Concent 32.2, Red Cell Distribution Width 14.1, Platelet Count 249, Mean Platelet Volume 8.2, Neutrophils (%) (Auto) 80.4H, Lymphocytes ( %) (Auto) 10.0L, Monocytes (%) (Auto) 7.1, Eosinophils (%) (Auto) 2.0, Basophils (%) (Auto) 0.5, Sodium Level 134L, Potassium Level 3.5, Chloride Level 101, Carbon Dioxide Level 27, Anion Gap 6, Blood Urea Nitrogen 14, Creatinine 0.9, Estimat Glomerular Filtration Rate > 60, Glucose Level 438#H, Calcium Level 8.1L, Pro-B-Type Natriuretic Peptide 870H Current Medications Medications (Trade) Dose Ordered Sig/Eddy Route PRN Reason Start Time Stop Time Status Last Admin Dose Admin Acetaminophen (Tylenol) 650 mg Q6H PRN NG Mild Pain/Temp > 100.5 02/11/18 18:18 03/12/18 18:17 02/19/18 03:50 Albuterol/ Ipratropium (Albuterol/ Ipratropium) 3 ml Q4HRT HHN 02/17/18 19:00 02/22/18 18:59 02/21/18 11:05 Aspirin (ASA) 81 mg DAILY NG 02/12/18 09:00 03/14/18 08:59 02/21/18 08:26 Atorvastatin Calcium (Lipitor) 10 mg BEDTIME NG 02/11/18 21:00 03/09/18 20:59 02/20/18 23:18 Calcium Carbonate (Tums) 500 mg THREE TIMES A DAY GT 02/12/18 09:00 11/2/18 08:59 02/21/18 08:26 Chlorhexidine Gluconate (Tesha-Hex 2%) 1 applic DAILY@2000 TOPIC 02/19/18 20:00 03/21/18 19:59 02/20/18 23:17 Dextrose/Sodium Chloride 1,000 ml @ 60 mls/hr [id number] IV 02/20/18 16:45 03/22/18 16:44 02/21/18 03:50 Docusate Sodium (Colace) 100 mg TWICE A DAY NG 02/12/18 09:00 03/13/18 08:59 02/21/18 08:26 Guaifenesin (Robitussin) 100 mg Q4H PRN NG For Cough 02/13/18 13:45 03/14/18 18:14 Heparin Sodium (Porcine) (Heparin 5000 units/ml) 5,000 units EVERY 8 HOURS SUBQ 02/11/18 22:00 03/09/18 13:59 02/21/18 06:22 Levetiracetam (Keppra) 1,000 mg Q12HR NG 02/16/18 21:00 03/18/18 20:59 02/21/18 08:26 Levothyroxine Sodium (Synthroid) 125 mcg DAILY NG 02/17/18 09:00 03/19/18 08:59 02/21/18 08:26 Magnesium Hydroxide (Mom) 30 ml HSPRN PRN NG Constipation 02/11/18 21:00 03/09/18 20:59 Meropenem 1 gm/ Sodium Chloride 55 ml @ 110 mls/hr Q8H IVPB 02/18/18 11:00 02/23/18 10:59 02/21/18 11:19 Metoprolol Tartrate (Lopressor) 5 mg Q4H PRN IVP hr>130 02/11/18 18:19 03/09/18 18:18 Metoprolol Tartrate (Lopressor) 12.5 mg Q12HR NG 02/11/18 21:00 03/09/18 08:59 02/21/18 08:27 Olanzapine (ZyPREXA) 5 mg DAILY@2100 NG 02/11/18 21:00 03/12/18 20:59 02/20/18 23:19 Pantoprazole (Protonix) 40 mg DAILY IVP 02/12/18 09:00 03/09/18 09:20 02/21/18 08:26 Triamcinolone Acetonide (Kenalog 0.025% Oint) 1 applic THREE TIMES A DAY TOPIC 02/14/18 18:00 03/16/18 17:59 02/21/18 08:26 Vancomycin HCl (Vanco rx to dose) 1 ea DAILY PRN MISC PER PHARMACY 02/12/18 09:00 03/09/18 07:29 Vancomycin HCl 500 mg/Dextrose 110 ml @ 110 mls/hr Q12H IVPB 02/11/18 20:00 03/06/18 19:59 02/21/18 08:15 Sae Forrest MD Feb 21, 2018 12:06
--- NOTE | 2018-02-21 13:38 | Diagnostic Imaging Report ---
Indication: Post nasogastric tube placement Technique: One view of the lower chest and upper abdomen Comparison: 02/19/2018 Findings: There is a nasogastric tube in place, tip projecting at the level gastric antrum. Also demonstrated is a PICC, tip at the cavoatrial junction. The visualized portions of the lungs are clear.. Previously demonstrated right basilar consolidation is not evident on this exam Impression: Satisfactory nasogastric intubation Other findings as noted
--- NOTE | 2018-02-21 20:53 | Cardiology Progress Note ---
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 pneumonia arf hs of svt chronic subdural hematoma eczema echo noted normal lv systolic function bp seems lower today got diuretic yest last fever 02/19 repeat blood cx neg more than 5 days and another set neg after 48 hours no svt remains on bb awaits peg iv abx will repeat echo this week Subjective ROS Limited/Unobtainable: Yes Subjective appear calm and dry no sig cough during my evaluation Objective Last 24 Hour Vital Signs Date Time Temp Pulse Resp B/P (MAP) Pulse Ox O2 Delivery O2 Flow Rate FiO2 02/21/18 19:30 78 22 98 Nasal Cannula 3.0 32 02/21/18 19:16 66 22 96 Nasal Cannula 3.0 32 02/21/18 19:08 94/55 (68) 02/21/18 17:23 77 28 99 Nasal Cannula 3.0 32 02/21/18 16:00 4.0 02/21/18 16:00 71 02/21/18 16:00 97.5 79 20 92/56 (68) 98 97.5 02/21/18 15:08 79 20 98 Nasal Cannula 3.0 32 02/21/18 12:00 4.0 02/21/18 12:00 80 02/21/18 12:00 98.4 81 20 104/48 (66) 96 98.4 02/21/18 11:23 75 28 98 Nasal Cannula 3.0 32 02/21/18 11:05 71 20 98 Nasal Cannula 3.0 32 02/21/18 09:00 Nasal Cannula 4.0 02/21/18 08:27 94 131/92 02/21/18 08:06 71 28 97 Nasal Cannula 2.0 28 02/21/18 08:02 72 23 97 Nasal Cannula 3.0 32 02/21/18 08:02 Nasal Cannula 3.0 32 02/21/18 08:01 98 Nasal Cannula 3.0 32 02/21/18 08:00 93 02/21/18 08:00 4.0 02/21/18 08:00 98.4 99 18 131/72 (91) 96 98.4 02/21/18 06:07 89 19 95 02/21/18 05:50 88 19 97 Full Face 35 02/21/18 04:00 85 02/21/18 04:00 35 02/21/18 04:00 97.9 84 19 103/48 (66) 94 97.9 02/21/18 02:15 61 23 96 Full Face 35 02/21/18 02:14 72 28 97 Bi-pap 35 02/21/18 02:00 60 23 94 Bi-pap 35 02/21/18 01:00 62 24 95 Facial 35 02/21/18 00:00 97.2 82 18 87/57 (67) 93 97.2 02/21/18 00:00 82 02/21/18 00:00 35 02/20/18 23:43 72 28 97 Bi-pap 35 02/20/18 23:38 70 24 95 Bi-pap 35 02/20/18 22:30 60 24 96 Facial 35 02/20/18 21:00 Nasal Cannula 4.0 02/20/18 21:00 56 102/54 General Appearance: no apparent distress, alert Cardiovascular: normal rate, regular rhythm Respiratory/Chest: lungs clear Abdomen: normal bowel sounds, non tender, soft Extremities: no swelling Intake and Output 02/20/18 02/21/18 19:00 07:00 Intake Total 1550 ml Output Total 300 ml 1000 ml Balance -300 ml 550 ml IV Total 1550 ml Output Urine Total 300 ml 1000 ml Laboratory Tests Test 02/21/18 06:30 White Blood Count 10.8 K/UL (4.8-10.8) Red Blood Count 3.43 M/UL (4.70-6.10) L Hemoglobin 10.8 G/DL (14.2-18.0) L Hematocrit 33.6 % (42.0-52.0) L Mean Corpuscular Volume 98 FL (80-99) Mean Corpuscular Hemoglobin 31.5 PG (27.0-31.0) H Mean Corpuscular Hemoglobin Concent 32.2 G/DL (32.0-36.0) Red Cell Distribution Width 14.1 % (11.6-14.8) Platelet Count 249 K/UL (150-450) Mean Platelet Volume 8.2 FL (6.5-10.1) Neutrophils (%) (Auto) 80.4 % (45.0-75.0) H Lymphocytes (%) (Auto) 10.0 % (20.0-45.0) L Monocytes (%) (Auto) 7.1 % (1.0-10.0) Eosinophils (%) (Auto) 2.0 % (0.0-3.0) Basophils (%) (Auto) 0.5 % (0.0-2.0) Sodium Level 134 MMOL/L (136-145) L Potassium Level 3.5 MMOL/L (3.5-5.1) Chloride Level 101 MMOL/L (98-107) Carbon Dioxide Level 27 MMOL/L (21-32) Anion Gap 6 mmol/L (5-15) Blood Urea Nitrogen 14 mg/dL (7-18) Creatinine 0.9 MG/DL (0.55-1.30) Estimat Glomerular Filtration Rate > 60 mL/min (>60) Glucose Level 438 MG/DL (74-106) #H Calcium Level 8.1 MG/DL (8.5-10.1) L Pro-B-Type Natriuretic Peptide 870 pg/mL (0-125) H Microbiology Date/Time Source Procedure Growth Status 02/19/18 15:45 Femoral Central Line Catheter Tip Culture - Preliminary NO GROWTH AFTER 24 HOURS Resulted Amos Sue MD Feb 21, 2018 20:53
[2018-02-21] MEDS: Dyna-Hex 2% Top Sol 2oz TOPIC SCH (21:00)
--- NOTE | 2018-02-21 22:37 | General Progress Note ---
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 - pneumonitis - failed swallow - h/o CHF - Fever and Leukocytosis - resolved Recommendations - PEG placement rescheduled for - Abx - Hold TF until PEG placed (in case repeatedly aspirating) - optimize pulmonary parameters Subjective Allergies: Coded Allergies: SULFA (SULFONAMIDE ANTIBIOTICS) (Verified Allergy, Unknown, 09/02/15) Subjective Above noted doing better WBC now normal breathing better Objective Last 24 Hour Vital Signs Date Time Temp Pulse Resp B/P (MAP) Pulse Ox O2 Delivery O2 Flow Rate FiO2 02/21/18 22:29 77 21 99 Facial 35 02/21/18 22:14 75 20 93 Nasal Cannula 3.0 32 02/21/18 21:33 77 108/60 02/21/18 21:00 Nasal Cannula 4.0 02/21/18 20:10 94 Nasal Cannula 3.0 32 02/21/18 20:10 Nasal Cannula 3.0 32 02/21/18 20:00 4.0 02/21/18 19:30 78 22 98 Nasal Cannula 3.0 32 02/21/18 19:16 66 22 96 Nasal Cannula 3.0 32 02/21/18 19:08 94/55 (68) 02/21/18 17:23 77 28 99 Nasal Cannula 3.0 32 02/21/18 16:00 4.0 02/21/18 16:00 71 02/21/18 16:00 97.5 79 20 92/56 (68) 98 97.5 02/21/18 15:08 79 20 98 Nasal Cannula 3.0 32 02/21/18 12:00 4.0 02/21/18 12:00 80 02/21/18 12:00 98.4 81 20 104/48 (66) 96 98.4 02/21/18 11:23 75 28 98 Nasal Cannula 3.0 32 02/21/18 11:05 71 20 98 Nasal Cannula 3.0 32 02/21/18 09:00 Nasal Cannula 4.0 02/21/18 08:27 94 131/92 02/21/18 08:06 71 28 97 Nasal Cannula 2.0 28 02/21/18 08:02 72 23 97 Nasal Cannula 3.0 32 02/21/18 08:02 Nasal Cannula 3.0 32 02/21/18 08:01 98 Nasal Cannula 3.0 32 02/21/18 08:00 93 02/21/18 08:00 4.0 02/21/18 08:00 98.4 99 18 131/72 (91) 96 98.4 02/21/18 06:07 89 19 95 02/21/18 05:50 88 19 97 Full Face 35 02/21/18 04:00 85 02/21/18 04:00 35 02/21/18 04:00 97.9 84 19 103/48 (66) 94 97.9 02/21/18 02:15 61 23 96 Full Face 35 02/21/18 02:14 72 28 97 Bi-pap 35 02/21/18 02:00 60 23 94 Bi-pap 35 02/21/18 01:00 62 24 95 Facial 35 02/21/18 00:00 97.2 82 18 87/57 (67) 93 97.2 02/21/18 00:00 82 02/21/18 00:00 35 02/20/18 23:43 72 28 97 Bi-pap 35 02/20/18 23:38 70 24 95 Bi-pap 35 Intake and Output 02/20/18 02/21/18 19:00 07:00 Intake Total 1550 ml Output Total 300 ml 1000 ml Balance -300 ml 550 ml IV Total 1550 ml Output Urine Total 300 ml 1000 ml Laboratory Tests 02/21/18 06:30: White Blood Count 10.8, Red Blood Count 3.43L, Hemoglobin 10.8L, Hematocrit 33.6L, Mean Corpuscular Volume 98, Mean Corpuscular Hemoglobin 31.5H, Mean Corpuscular Hemoglobin Concent 32.2, Red Cell Distribution Width 14.1, Platelet Count 249, Mean Platelet Volume 8.2, Neutrophils (%) (Auto) 80.4H, Lymphocytes ( %) (Auto) 10.0L, Monocytes (%) (Auto) 7.1, Eosinophils (%) (Auto) 2.0, Basophils (%) (Auto) 0.5, Sodium Level 134L, Potassium Level 3.5, Chloride Level 101, Carbon Dioxide Level 27, Anion Gap 6, Blood Urea Nitrogen 14, Creatinine 0.9, Estimat Glomerular Filtration Rate > 60, Glucose Level 438#H, Calcium Level 8.1L, Pro-B-Type Natriuretic Peptide 870H Height (Feet): 5 Height (Inches): 2.00 Weight (Pounds): 126 Objective WDWN WM NCAT supple Chest b/l Luis RR abd soft ND no edema OBS Michael Estevez MD Feb 21, 2018 22:37
--- NOTE | 2018-02-21 23:46 | General Progress Note ---
Assessment/Plan Status: progressing Assessment/Plan ASSESSMENT: 1. Shortness of breath, possibly secondary to pneumonia, possible sepsis. 2. Acute respiratory failure requiring BiPAP. 3. Acute kidney injury. 4. Elevated troponin, possibly from demand ischemia. 5. Developmental delay. 6. Dysphagia. 7. Psoriasis. 8. Acute left cerebellar infarction 9. MRSA bacteremia/Pneumonia/?endocarditis 10. epistaxis, secondary to trauma from NGT and suctioning 11. sepsis/recurrent asspiration pneumonia? 12. Vascular congestion 13. hypokalemia PLAN: 1. Continue the patient on BiPAP support prn 2. Monitor vitals and I and O's. 3. advance NGT and start diet in cxr confirmed palcement 4. The patient was started on IV vancomycin and Zosyn. 5. To continue breathing treatment with frequent suctioning p.r.n. 6. Continue detention medications. 7. Monitor troponin. 8. Heparin for DVT prophylaxis. 9. Protonix for GI prophylaxis. 10. Dr. Forrest, Pulmonary consult and Dr. Johnston, ID consult. 11. change aspirin to 81 mg daily 12. fu Echo and carotic us and venous duplex 13 gi consult appreciated, NGT for now repeat swallow eval later when more stable 14. NGT for meds and tube feeding 15. repeat Blood cultures to check for clearance of MRSA conitnue supportive care continue telemetry VQ scan negative for PE monitor labs ENT consult to evaluate for epistaxis, will check am cbc and INR/PTT PICC line placemetn for IV vanco for 19 more days for possible endocarditis PEG placement per Dr. Bryan postponed due to fever I spoke with Dr. Mckenna from [facility] who agrees to PEG for consent can call [phone] Nini Baltazar director or for Emergency [phone] PICC line placed 02-19-18 right groin line removed 02-19-18, fu cultures now on Vanco and Meopenam s/p iv lasix one dose yesterday with less congestion today echo to be repeated per cardiology PEG placement scheduled for tomorrow am NPO continue IV hydration Subjective Date patient seen: Feb 21, 2018 ROS Limited/Unobtainable: Yes Allergies: Coded Allergies: SULFA (SULFONAMIDE ANTIBIOTICS) (Verified Allergy, Unknown, 09/02/15) Subjective appears slightly improved Objective Last 24 Hour Vital Signs Date Time Temp Pulse Resp B/P (MAP) Pulse Ox O2 Delivery O2 Flow Rate FiO2 02/21/18 22:29 77 21 99 Facial 35 02/21/18 22:14 75 20 93 Nasal Cannula 3.0 32 02/21/18 21:33 77 108/60 02/21/18 21:00 Nasal Cannula 4.0 02/21/18 20:10 94 Nasal Cannula 3.0 32 02/21/18 20:10 Nasal Cannula 3.0 32 02/21/18 20:00 4.0 02/21/18 19:30 78 22 98 Nasal Cannula 3.0 32 02/21/18 19:16 66 22 96 Nasal Cannula 3.0 32 02/21/18 19:08 94/55 (68) 02/21/18 17:23 77 28 99 Nasal Cannula 3.0 32 02/21/18 16:00 4.0 02/21/18 16:00 71 02/21/18 16:00 97.5 79 20 92/56 (68) 98 97.5 02/21/18 15:08 79 20 98 Nasal Cannula 3.0 32 02/21/18 12:00 4.0 02/21/18 12:00 80 02/21/18 12:00 98.4 81 20 104/48 (66) 96 98.4 02/21/18 11:23 75 28 98 Nasal Cannula 3.0 32 02/21/18 11:05 71 20 98 Nasal Cannula 3.0 32 02/21/18 09:00 Nasal Cannula 4.0 02/21/18 08:27 94 131/92 02/21/18 08:06 71 28 97 Nasal Cannula 2.0 28 02/21/18 08:02 72 23 97 Nasal Cannula 3.0 32 02/21/18 08:02 Nasal Cannula 3.0 32 02/21/18 08:01 98 Nasal Cannula 3.0 32 02/21/18 08:00 93 02/21/18 08:00 4.0 02/21/18 08:00 98.4 99 18 131/72 (91) 96 98.4 02/21/18 06:07 89 19 95 02/21/18 05:50 88 19 97 Full Face 35 02/21/18 04:00 85 02/21/18 04:00 35 10/17/18 04:00 97.9 84 19 103/48 (66) 94 97.9 02/21/18 02:15 61 23 96 Full Face 35 02/21/18 02:14 72 28 97 Bi-pap 35 02/21/18 02:00 60 23 94 Bi-pap 35 02/21/18 01:00 62 24 95 Facial 35 02/21/18 00:00 97.2 82 18 87/57 (67) 93 97.2 02/21/18 00:00 82 02/21/18 00:00 35 Intake and Output 02/20/18 02/21/18 19:00 07:00 Intake Total 1550 ml Output Total 300 ml 1000 ml Balance -300 ml 550 ml IV Total 1550 ml Output Urine Total 300 ml 1000 ml Laboratory Tests 02/21/18 06:30: White Blood Count 10.8, Red Blood Count 3.43L, Hemoglobin 10.8L, Hematocrit 33.6L, Mean Corpuscular Volume 98, Mean Corpuscular Hemoglobin 31.5H, Mean Corpuscular Hemoglobin Concent 32.2, Red Cell Distribution Width 14.1, Platelet Count 249, Mean Platelet Volume 8.2, Neutrophils (%) (Auto) 80.4H, Lymphocytes ( %) (Auto) 10.0L, Monocytes (%) (Auto) 7.1, Eosinophils (%) (Auto) 2.0, Basophils (%) (Auto) 0.5, Sodium Level 134L, Potassium Level 3.5, Chloride Level 101, Carbon Dioxide Level 27, Anion Gap 6, Blood Urea Nitrogen 14, Creatinine 0.9, Estimat Glomerular Filtration Rate > 60, Glucose Level 438#H, Calcium Level 8.1L, Pro-B-Type Natriuretic Peptide 870H Height (Feet): 5 Height (Inches): 2.00 Weight (Pounds): 126 General Appearance: alert EENT: PERRL/EOMI, pharynx normal Neck: non-tender, supple Cardiovascular: normal rate, regular rhythm, no gallop/murmur, no JVD Respiratory/Chest: chest wall non-tender, normal breath sounds, no respiratory distress Abdomen: non tender, soft, no mass Extremities: non-tender, normal inspection, no calf tenderness Edema: no edema noted Arm (L), no edema noted Arm (R), no edema noted Leg (L), no edema noted Leg (R), no edema noted Pedal (L), no edema noted Pedal (R), no edema noted Generalized Neurologic: alert Skin: rash Lymphatic: normal anterior cervical (L), normal anterior cervical (R), normal posterior cervical (L), normal posterior cervical (R), normal submandibular (L) , normal submandibular (R), normal supraclavicular (L), normal supraclavicular ( R), normal axillary (L), normal axillary (R), normal inguinal (L), normal inguinal (R), normal other Diann Silver MD Feb 21, 2018 23:46
[2018-02-22] VITALS (11 sets, daily range): BP systolic 83–124; BP diastolic 38–78
[2018-02-22] MEDS: D5 1/2NS 1,000 ML IV SCH (01:57)
[2018-02-22] MEDS: Albuterol/Ipratropium 3ml neb HHN SCH ×6 (03:12→22:57)
[2018-02-22] MEDS: Meropenem 1 GM in NS 55 ML IVPB SCH ×3 (03:20→18:05)
[2018-02-22] MEDS: Vancomycin 500 MG in D5W 110 ML IVPB SCH ×2 (08:11→13:14)
[2018-02-22] MEDS: Metoprolol Tartrate 12.5mg TAB NG SCH ×2 (08:13→20:54)
--- NOTE | 2018-02-22 08:36 | Anethesia Preoperative Eval ---
Anesthesia Pre-op PMH/ROS General Date of Evaluation: Feb 22, 2018 Time of Evaluation: 08:33 Anesthesiologist: ela ASA Score: ASA 4 Mallampati Score Class I : Soft palate, uvula, fauces, pillars visible Class II: Soft palate, uvula, fauces visible Class III: Soft palate, base of uvula visible Class IV: Only hard plate visible Mallampati Classification: Class II Surgeon: erasmo Diagnosis: dysphagia Surgical Procedure: egd/peg Anesthesia History: none Social History: smoking - nonsmoker Family History: no anesthesia problems Allergies: Coded Allergies: SULFA (SULFONAMIDE ANTIBIOTICS) (Verified Allergy, Unknown, 09/02/15) Medications: see eMAR Patient NPO?: Yes Past Medical History Cardiovascular: Reports: other - chf 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: Reports: CVA, other - mental retardation Hematology/Immune: Reports: other - sepsis Anesthesia Pre-op Phys. Exam Physician Exam Last Vital Signs Date Time Temp Pulse Resp B/P (MAP) Pulse Ox O2 Delivery O2 Flow Rate FiO2 02/22/18 08:24 Nasal Cannula 3.0 32 02/22/18 08:23 94 02/22/18 08:22 79 20 02/22/18 08:13 96/68 02/22/18 04:00 98.0 98.0 Constitutional: NAD Neurologic: CN 2-12 intact Cardiovascular: RRR Respiratory: CTA Gastrointestinal: S/NT/ND Airway Exam Mallampati Score: Class II MO: limited Neck: flexible TMD: 2fb ROM: limited Teeth: missing Anesthesia Pre-op A/P Risk Assessment & Plan Assessment: asa4 Plan: mac Status Change Before Surgery: No Pre-Antibiotics Drug: Keeley Brown MD Feb 22, 2018 08:36
[2018-02-22] MEDS ORDERED: Atropine Sulfate 0.4mg/ml inj IVP PRN (08:45)
[2018-02-22] MEDS ORDERED: Atropine Inj 1mg/10ml Syr IV PRN (08:45)
[2018-02-22] MEDS ORDERED: DiphenhydrAMINE 50mg/ml Inj IVP PRN (08:45)
[2018-02-22] MEDS ORDERED: fentaNYL 100 mcg/2 mL IV PRN (08:45)
[2018-02-22] MEDS ORDERED: Midazolam 2mg/2ml Inj IVP PRN (08:45)
[2018-02-22] MEDS: Pantoprazole Inj IVP SCH (09:00)
[2018-02-22] MEDS: Tums 500mg GT SCH ×3 (09:00→17:05)
[2018-02-22] MEDS: Triamcinolone 0.025% oint TOPIC SCH ×3 (09:00→17:05)
[2018-02-22] MEDS: Docusate 100mg/10ml Liq NG SCH ×2 (09:00→17:05)
[2018-02-22] MEDS: Aspirin Baby 81mg NG SCH (09:00)
[2018-02-22] MEDS ORDERED: Propofol 200mg/20ml IV ONE (09:30)
[2018-02-22] MEDS ORDERED: Lidocaine 1% MPF 10mg/ml 5ml ONE (09:30)
[2018-02-22] MEDS ORDERED: ePHEDrine 50mg/ml Inj ONE (09:30)
[2018-02-22] MEDS ORDERED: NS 500ML IVPB ONE (09:52)
--- NOTE | 2018-02-22 10:16 | Pre-Procedure Note/Attestation ---
Pre-Procedure Note/Attestation Complete Prior to Procedure Planned Procedure: not applicable Procedure Narrative: egd/PEG Indications for Procedure Pre-Operative Diagnosis: dysphagia Attestation I attest that I discussed the nature of the procedure; its benefits; risks and complications; and alternatives (and the risks and benefits of such alternatives ), prior to the procedure, with the patient (or the patient's legal consumer sales representative). I attest that, if there was a reasonable possibility of needing a blood transfusion, the patient (or the patient's legal consumer sales representative) was given the [facility] standardized written summary, pursuant to the David Loretta Blood Safety Act ([place] Health and Safety Code # 1645, as amended). I attest that I re-evaluated the patient just prior to the surgery and that there has been no change in the patient's H&P, except as documented below: Michael Estevez MD Feb 22, 2018 10:16
--- NOTE | 2018-02-22 10:18 | Endoscopy Procedure Note ---
Endoscopy Procedure Note General Indication for Procedure: dysphagia, anemia Procedures Performed: PEG Operative Findings/Diagnosis: erosive gastritis, biopsied, PEG Specimen: yes Pt Tolerated Procedure Well: No Estimated Blood Loss: none Anesthesia Anesthesiologist: chitra lozano Anesthesia: MAC Medications Medication Given: see anesthesia record Inserted Devices Implant(s) used?: No GI Core Measures 50 yrs or older w/o bx or poly: Not Applicable 10yrs. F/U not recommended: Not Applicable If not recommended, why?: Michael Estevez MD Feb 22, 2018 10:18
--- NOTE | 2018-02-22 10:19 | Brief Operative Note ---
Immediate Post Operative Note Operative Note Chief Complaint: dysphagia, anemia Pre-op Diagnosis: dysphagia Procedure: ENT Bx PEG Post-op Diagnosis: erosive gastritis Surgeon: erasmo Anesthesiologist: chitra lozano Anesthesia: MAC Specimen: yes Complications: none Condition: stable Fluids: given Estimated Blood Loss: none Drains: none Implant(s) used?: No Michael Estevez MD Feb 22, 2018 10:19
--- NOTE | 2018-02-22 11:07 | Immediate Post-Op Evaluation ---
Immediate Post-Op Evalulation Immediate Post-Op Evalulation Procedure: egd/peg Date of Evaluation: Feb 22, 2018 Time of Evaluation: 10:31 IV Fluids: 200ml 0.9ns Blood Products: none Estimated Blood Loss: negligible Blood Pressure Systolic: 88 Blood Pressure Diastolic: 48 Pulse Rate: 91 Respiratory Rate: 18 O2 Sat by Pulse Oximetry: 94 Temperature (Fahrenheit): 97.3 Pain Score (1-10): 0 Nausea: No Vomiting: No Complications none Patient Status: awake, reacts, patent Hydration Status: adequate Drug: Keeley Brown MD Feb 22, 2018 11:07
--- NOTE | 2018-02-22 11:09 | 48 Hour Post Anesthesia Eval ---
Post Anesthesia Evaluation Procedure: egd/peg Date of Evaluation: Feb 22, 2018 Time of Evaluation: 10:33 Blood Pressure Systolic: 84 0: 62 Pulse Rate: 87 Respiratory Rate: 18 Temperature (Fahrenheit): 97.3 O2 Sat by Pulse Oximetry: 96 Airway: patent Nausea: No Vomiting: No Pain Intensity: 0 Hydration Status: adequate Cardiopulmonary Status: stable Mental Status/LOC: patient returned to baseline Post-Anesthesia Complications: none Follow-up care needed: N/A Keeley Mccoy MD Feb 22, 2018 11:09
--- NOTE | 2018-02-22 11:29 | Infectious Diseases Prog Note ---
Assessment/Plan Assessment/Plan A: 1. pneumonia with MRSA & E. coli 2. respiratory failure 3. Acute lacunar CVA 4. mental retardation 5. staph aureus sepsis r/o endocarditis 6. New sepsis with fever, leukocytosis & Tachycardia 7. Dysphagia s/p GT P 1. continue vancomycin iv, X 12 days 2. Continue Meropenem Subjective ROS Limited/Unobtainable: Yes Gastrointestinal/Abdominal: Reports: other - hasd EGD & PEG placement today Allergies: Coded Allergies: SULFA (SULFONAMIDE ANTIBIOTICS) (Verified Allergy, Unknown, 09/02/15) Objective Vital Signs Last 24 Hour Vital Signs Date Time Temp Pulse Resp B/P (MAP) Pulse Ox O2 Delivery O2 Flow Rate FiO2 02/22/18 11:09 207.1 87 18 96 02/22/18 11:07 207.1 91 18 94 02/22/18 10:48 78 18 97/38 98 Nasal Cannula 4 02/22/18 10:40 83 18 86/45 98 Nasal Cannula 4 02/22/18 10:29 87 18 84/52 94 Nasal Cannula 4 02/22/18 10:24 92 18 83/45 94 Nasal Cannula 4 02/22/18 10:19 97.3 91 18 88/48 94 Nasal Cannula 4 97.3 02/22/18 09:00 Nasal Cannula 4.0 02/22/18 08:24 Nasal Cannula 3.0 32 02/22/18 08:23 94 Nasal Cannula 3.0 32 02/22/18 08:22 79 20 98 Nasal Cannula 3.0 32 02/22/18 08:13 76 96/68 02/22/18 08:11 79 18 94 Nasal Cannula 3.0 32 02/22/18 08:00 4.0 02/22/18 08:00 98.1 76 20 96/66 (76) 95 98.1 02/22/18 05:03 79 20 95 3.0 32 02/22/18 04:00 35 02/22/18 04:00 98.0 68 20 118/67 (84) 98 98.0 02/22/18 04:00 77 02/22/18 03:35 67 18 98 Facial 35 02/22/18 03:32 67 18 98 Bi-pap 35 02/22/18 03:17 65 19 Bi-pap 35 02/22/18 03:15 65 19 98 Bi-pap 35 02/22/18 00:30 70 20 96 Facial 35 02/22/18 00:00 74 02/22/18 00:00 35 02/22/18 00:00 97.5 68 20 124/65 (84) 98 97.5 02/21/18 22:29 78 24 97 Bi-pap 35 02/21/18 22:29 77 21 99 Facial 35 02/21/18 22:14 75 20 93 Nasal Cannula 3.0 32 02/21/18 21:33 77 108/60 02/21/18 21:00 Nasal Cannula 4.0 02/21/18 20:10 94 Nasal Cannula 3.0 32 02/21/18 20:10 Nasal Cannula 3.0 32 02/21/18 20:00 97.7 80 20 96/58 (71) 98 97.7 02/21/18 20:00 4.0 02/21/18 20:00 78 02/21/18 19:30 78 22 98 Nasal Cannula 3.0 32 02/21/18 19:16 66 22 96 Nasal Cannula 3.0 32 02/21/18 19:08 94/55 (68) 02/21/18 17:23 77 28 99 Nasal Cannula 3.0 32 02/21/18 16:00 4.0 02/21/18 16:00 71 02/21/18 16:00 97.5 79 20 92/56 (68) 98 97.5 02/21/18 15:08 79 20 98 Nasal Cannula 3.0 32 02/21/18 12:00 4.0 02/21/18 12:00 80 02/21/18 12:00 98.4 81 20 104/48 (66) 96 98.4 Height (Feet): 5 Height (Inches): 5.00 Weight (Pounds): 117 General Appearance: no acute distress HEENT: other - dry mouth Respiratory/Chest: other - few rhonchi Cardiovascular: normal rate, other - left arm PICC line Abdomen: soft, non tender, other - GT in place Extremities: no edema 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: other - opens eyes Microbiology Date/Time Source Procedure Growth Status 02/19/18 15:45 Femoral Central Line Catheter Tip Culture - Preliminary NO GROWTH AFTER 48 HOURS Resulted Laboratory Tests Test 02/22/18 08:30 Vancomycin Level Trough 15.9 ug/mL (5.0-12.0) H Current Medications Medications (Trade) Dose Ordered Sig/Eddy Route PRN Reason Start Time Stop Time Status Last Admin Dose Admin Acetaminophen (Tylenol) 650 mg Q6H PRN NG Mild Pain/Temp > 100.5 02/11/18 18:18 03/12/18 18:17 02/19/18 03:50 Acetylcysteine (Mucomyst) 100 mg Q4HRT N 02/21/18 19:00 03/23/18 18:59 02/22/18 08:11 Al Hydroxide/Mg Hydroxide (Mylanta) 15 ml Q1H PRN ORAL gi upset 02/22/18 08:45 02/22/18 16:00 Albuterol/ Ipratropium (Albuterol/ Ipratropium) 3 ml Q4HRT N 02/17/18 19:00 02/22/18 18:59 02/22/18 08:11 Aspirin (ASA) 81 mg DAILY NG 02/12/18 09:00 03/14/18 08:59 02/21/18 08:26 Atorvastatin Calcium (Lipitor) 10 mg BEDTIME NG 02/11/18 21:00 03/09/18 20:59 02/21/18 21:33 Atropine Sulfate (Atropine 0.4mg/ ml) 0.5 mg Q5M PRN IVP HR less than 45 BPM 02/22/18 08:45 02/22/18 16:00 Calcium Carbonate (Tums) 500 mg THREE TIMES A DAY GT 02/12/18 09:00 03/09/18 08:59 02/21/18 18:51 Chlorhexidine Gluconate (Tesha-Hex 2%) 1 applic DAILY@2000 TOPIC 02/19/18 20:00 03/21/18 19:59 02/21/18 21:00 Diphenhydramine HCl (Benadryl) 25 mg Q15M PRN IVP Itching 02/22/18 08:45 02/22/18 16:00 Docusate Sodium (Colace) 100 mg TWICE A DAY NG 02/12/18 09:00 03/13/18 08:59 02/21/18 18:50 Fentanyl Citrate (Sublimaze 100 mcg/2 mL) 25 mcg Q10M PRN IV Moderate Pain (Pain Scale 4-6) 02/22/18 08:45 02/22/18 16:00 Guaifenesin (Robitussin) 100 mg Q4H PRN NG For Cough 02/13/18 13:45 03/14/18 18:14 Heparin Sodium (Porcine) (Heparin 5000 units/ml) 5,000 units EVERY 8 HOURS SUBQ 02/23/18 14:00 03/25/18 13:59 Hydralazine HCl (Apresoline) 5 mg Q30M PRN IV SBP>160 /DBP>90 02/22/18 08:45 02/22/18 16:00 Levetiracetam (Keppra) 1,000 mg Q12HR NG 02/16/18 21:00 03/18/18 20:59 02/21/18 21:32 Levothyroxine Sodium (Synthroid) 125 mcg DAILY NG 02/17/18 09:00 03/19/18 08:59 02/21/18 08:26 Magnesium Hydroxide (Mom) 30 ml HSPRN PRN NG Constipation 02/11/18 21:00 03/09/18 20:59 Meropenem 1 gm/ Sodium Chloride 55 ml @ 110 mls/hr Q8H IVPB 02/18/18 11:00 02/23/18 10:59 02/22/18 03:20 Metoprolol Tartrate (Lopressor) 5 mg Q4H PRN IVP hr>130 02/11/18 18:19 03/09/18 18:18 Metoprolol Tartrate (Lopressor) 12.5 mg Q12HR NG 02/11/18 21:00 03/09/18 08:59 02/21/18 21:33 Midazolam HCl (Versed 2mg/2ml vial) 1 mg Q15M PRN IVP For Anxiety 02/22/18 08:45 02/22/18 16:00 Olanzapine (ZyPREXA) 5 mg DAILY@2100 NG 02/11/18 21:00 03/12/18 20:59 02/21/18 21:37 Ondansetron HCl (Zofran) 4 mg Q1H PRN IVP Nausea & Vomiting 02/22/18 08:45 02/22/18 16:00 Pantoprazole (Protonix) 40 mg DAILY IVP 02/12/18 09:00 03/09/18 09:20 02/21/18 08:26 Sodium Chloride 1,000 ml @ 50 mls/hr Q20H IV 02/22/18 12:00 03/24/18 11:59 Triamcinolone Acetonide (Kenalog 0.025% Oint) 1 applic THREE TIMES A DAY TOPIC 02/14/18 18:00 03/16/18 17:59 02/21/18 18:51 Vancomycin HCl (Vanco rx to dose) 1 ea DAILY PRN MISC PER PHARMACY 02/12/18 09:00 03/09/18 07:29 Vancomycin HCl 500 mg/Dextrose 110 ml @ 110 mls/hr Q12H IVPB 02/11/18 20:00 03/06/18 19:59 02/21/18 21:00 Wilbur Escudero MD Feb 22, 2018 11:29
[2018-02-22] MEDS: levETIRAcetam 500mg/5ml Liquid NG SCH ×2 (11:46→20:53)
[2018-02-22] MEDS: Levothyroxine 125mcg tab NG SCH (11:46)
[2018-02-22] MEDS: NovoLOG Insulin Flexpen SUBQ SCH ×2 (16:30→21:00)
--- NOTE | 2018-02-22 20:05 | General Progress Note ---
Assessment/Plan Status: progressing Assessment/Plan ASSESSMENT: 1. Shortness of breath, possibly secondary to pneumonia, possible sepsis. 2. Acute respiratory failure requiring BiPAP. 3. Acute kidney injury. 4. Elevated troponin, possibly from demand ischemia. 5. Developmental delay. 6. Dysphagia. 7. Psoriasis. 8. Acute left cerebellar infarction 9. MRSA bacteremia/Pneumonia/?endocarditis 10. epistaxis, secondary to trauma from NGT and suctioning 11. sepsis/recurrent asspiration pneumonia? 12. Vascular congestion 13. hypokalemia 14. S/P PEG placement on 02-22-18 PLAN: 1. Continue the patient on BiPAP support prn 2. Monitor vitals and I and O's. 3. advance NGT and start diet in cxr confirmed palcement 4. The patient was started on IV vancomycin and Zosyn. 5. To continue breathing treatment with frequent suctioning p.r.n. 6. Continue fpc medications. 7. Monitor troponin. 8. Heparin for DVT prophylaxis. 9. Protonix for GI prophylaxis. 10. Dr. Forrest, Pulmonary consult and Dr. Johnston, ID consult. 11. change aspirin to 81 mg daily 12. fu Echo and carotic us and venous duplex 13 gi consult appreciated, NGT for now repeat swallow eval later when more stable 14. NGT for meds and tube feeding 15. repeat Blood cultures to check for clearance of MRSA conitnue supportive care continue telemetry VQ scan negative for PE monitor labs ENT consult to evaluate for epistaxis, will check am cbc and INR/PTT PICC line placemetn for IV vanco for 19 more days for possible endocarditis I spoke with Dr. Mckenna from [facility] who agrees to PEG for consent can call [phone] Nini Baltazar director or for Emergency [phone] PICC line placed 02-19-18 right groin line removed 02-19-18, fu cultures now on Vanco and Meopenam s/p iv lasix one dose yesterday with less congestion today echo to be repeated per cardiology tube feedings to be started at midnight NPO by mouth continue IV hydration am labs if stable may be transfered to snf or LTAC in next 1 to 2 days Subjective Date patient seen: Feb 22, 2018 ROS Limited/Unobtainable: Yes Allergies: Coded Allergies: SULFA (SULFONAMIDE ANTIBIOTICS) (Verified Allergy, Unknown, 09/02/15) All Systems: reviewed and negative except above Subjective s/p PEG today, saturating 98 % on room air, 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 Objective Last 24 Hour Vital Signs Date Time Temp Pulse Resp B/P (MAP) Pulse Ox O2 Delivery O2 Flow Rate FiO2 02/22/18 19:45 93 20 99 Nasal Cannula 3.0 32 02/22/18 19:38 91 20 98 Nasal Cannula 3.0 32 02/22/18 19:37 Nasal Cannula 3.0 32 02/22/18 19:36 98 Nasal Cannula 3.0 32 02/22/18 16:00 83 02/22/18 16:00 97.8 84 20 113/78 (90) 99 97.8 02/22/18 16:00 4.0 02/22/18 15:25 61 20 99 Nasal Cannula 3.0 32 02/22/18 15:13 64 20 94 Nasal Cannula 3.0 32 02/22/18 12:13 65 20 99 Nasal Cannula 3.0 32 02/22/18 12:00 78 02/22/18 12:00 4.0 02/22/18 12:00 98.6 67 20 118/67 (84) 95 98.6 02/22/18 11:59 59 20 95 Nasal Cannula 3.0 32 02/22/18 11:09 207.1 87 18 96 02/22/18 11:07 207.1 91 18 94 02/22/18 10:48 78 18 97/38 98 Nasal Cannula 4 02/22/18 10:40 83 18 86/45 98 Nasal Cannula 4 02/22/18 10:29 87 18 84/52 94 Nasal Cannula 4 02/22/18 10:24 92 18 83/45 94 Nasal Cannula 4 02/22/18 10:19 97.3 91 18 88/48 94 Nasal Cannula 4 97.3 02/22/18 09:00 Nasal Cannula 4.0 02/22/18 08:24 Nasal Cannula 3.0 32 02/22/18 08:23 94 Nasal Cannula 3.0 32 02/22/18 08:22 79 20 98 Nasal Cannula 3.0 32 02/22/18 08:13 76 96/68 02/22/18 08:11 79 18 94 Nasal Cannula 3.0 32 02/22/18 08:00 78 02/22/18 08:00 4.0 02/22/18 08:00 98.1 76 20 96/66 (76) 95 98.1 02/22/18 05:03 79 20 95 3.0 32 02/22/18 04:00 35 02/22/18 04:00 98.0 68 20 118/67 (84) 98 98.0 02/22/18 04:00 77 02/22/18 03:35 67 18 98 Facial 35 02/22/18 03:32 67 18 98 Bi-pap 35 02/22/18 03:17 65 19 Bi-pap 35 02/22/18 03:15 65 19 98 Bi-pap 35 02/22/18 00:30 70 20 96 Facial 35 02/22/18 00:00 74 02/22/18 00:00 35 02/22/18 00:00 97.5 68 20 124/65 (84) 98 97.5 02/21/18 22:29 78 24 97 Bi-pap 35 02/21/18 22:29 77 21 99 Facial 35 02/21/18 22:14 75 20 93 Nasal Cannula 3.0 32 02/21/18 21:33 77 108/60 02/21/18 21:00 Nasal Cannula 4.0 02/21/18 20:10 94 Nasal Cannula 3.0 32 02/21/18 20:10 Nasal Cannula 3.0 32 Intake and Output 02/21/18 02/22/18 19:00 07:00 Intake Total 165 ml 825 ml Output Total 600 ml 600 ml Balance -435 ml 225 ml IV Total 165 ml 825 ml Output Urine Total 600 ml 600 ml Laboratory Tests 02/22/18 08:30: Hemoglobin A1c 5.6, Vancomycin Level Trough 15.9H Height (Feet): 5 Height (Inches): 5.00 Weight (Pounds): 117 General Appearance: alert EENT: PERRL/EOMI, pharynx normal Neck: non-tender, supple Cardiovascular: normal rate, regular rhythm, no gallop/murmur, no JVD Respiratory/Chest: lungs clear Abdomen: soft Extremities: non-tender, normal inspection, no calf tenderness Edema: no edema noted Arm (L), no edema noted Arm (R), no edema noted Leg (L), no edema noted Leg (R), no edema noted Pedal (L), no edema noted Pedal (R), no edema noted Generalized Neurologic: alert, aphasia Skin: rash Lymphatic: normal anterior cervical (L), normal anterior cervical (R), normal posterior cervical (L), normal posterior cervical (R), normal submandibular (L) , normal submandibular (R), normal supraclavicular (L), normal supraclavicular ( R), normal axillary (L), normal axillary (R), normal inguinal (L), normal inguinal (R), normal other Diann Silver MD Feb 22, 2018 20:05
--- NOTE | 2018-02-22 20:15 | Cardiology Progress Note ---
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 pneumonia arf hs of svt chronic subdural hematoma eczema echo noted normal lv systolic function bp seems lower today got diuretic yest last fever 02/19 repeat blood cx neg more than 5 days and another set neg after 48 hours no svt remains on bb s/p peg iv abx will repeat echo this week Subjective ROS Limited/Unobtainable: Yes Subjective appear calm and dry no sig cough during my evaluation Objective Last 24 Hour Vital Signs Date Time Temp Pulse Resp B/P (MAP) Pulse Ox O2 Delivery O2 Flow Rate FiO2 02/22/18 19:45 93 20 99 Nasal Cannula 3.0 32 02/22/18 19:38 91 20 98 Nasal Cannula 3.0 32 02/22/18 19:37 Nasal Cannula 3.0 32 02/22/18 19:36 98 Nasal Cannula 3.0 32 02/22/18 16:00 83 02/22/18 16:00 97.8 84 20 113/78 (90) 99 97.8 02/22/18 16:00 4.0 02/22/18 15:25 61 20 99 Nasal Cannula 3.0 32 02/22/18 15:13 64 20 94 Nasal Cannula 3.0 32 02/22/18 12:13 65 20 99 Nasal Cannula 3.0 32 02/22/18 12:00 78 02/22/18 12:00 4.0 02/22/18 12:00 98.6 67 20 118/67 (84) 95 98.6 02/22/18 11:59 59 20 95 Nasal Cannula 3.0 32 02/22/18 11:09 207.1 87 18 96 02/22/18 11:07 207.1 91 18 94 02/22/18 10:48 78 18 97/38 98 Nasal Cannula 4 02/22/18 10:40 83 18 86/45 98 Nasal Cannula 4 02/22/18 10:29 87 18 84/52 94 Nasal Cannula 4 02/22/18 10:24 92 18 83/45 94 Nasal Cannula 4 02/22/18 10:19 97.3 91 18 88/48 94 Nasal Cannula 4 97.3 02/22/18 09:00 Nasal Cannula 4.0 10/18/18 08:24 Nasal Cannula 3.0 32 02/22/18 08:23 94 Nasal Cannula 3.0 32 02/22/18 08:22 79 20 98 Nasal Cannula 3.0 32 02/22/18 08:13 76 96/68 02/22/18 08:11 79 18 94 Nasal Cannula 3.0 32 02/22/18 08:00 78 02/22/18 08:00 4.0 02/22/18 08:00 98.1 76 20 96/66 (76) 95 98.1 02/22/18 05:03 79 20 95 3.0 32 02/22/18 04:00 35 02/22/18 04:00 98.0 68 20 118/67 (84) 98 98.0 02/22/18 04:00 77 02/22/18 03:35 67 18 98 Facial 35 02/22/18 03:32 67 18 98 Bi-pap 35 02/22/18 03:17 65 19 Bi-pap 35 02/22/18 03:15 65 19 98 Bi-pap 35 02/22/18 00:30 70 20 96 Facial 35 02/22/18 00:00 74 02/22/18 00:00 35 02/22/18 00:00 97.5 68 20 124/65 (84) 98 97.5 02/21/18 22:29 78 24 97 Bi-pap 35 02/21/18 22:29 77 21 99 Facial 35 02/21/18 22:14 75 20 93 Nasal Cannula 3.0 32 02/21/18 21:33 77 108/60 02/21/18 21:00 Nasal Cannula 4.0 General Appearance: other - sedated Neck: supple Cardiovascular: normal rate, regular rhythm Respiratory/Chest: lungs clear Abdomen: normal bowel sounds, non tender, soft, other - g tube dressing Extremities: no swelling Intake and Output 02/21/18 02/22/18 19:00 07:00 Intake Total 165 ml 825 ml Output Total 600 ml 600 ml Balance -435 ml 225 ml IV Total 165 ml 825 ml Output Urine Total 600 ml 600 ml Laboratory Tests Test 02/22/18 08:30 Hemoglobin A1c 5.6 % (4.3-6.0) Vancomycin Level Trough 15.9 ug/mL (5.0-12.0) H Amos Sue MD Feb 22, 2018 20:15
--- NOTE | 2018-02-22 20:45 | Operative Note - Dictated ---
DATE OF OPERATION: 02/22/2018 GASTROENTEROLOGY PROCEDURE REPORT SURGEON: Michael Estevez M.D. ANESTHESIA: Please see the separate anesthesiologist's notes for details. PRE-ENDOSCOPIC DIAGNOSES: 1. Anemia. 2. Dysphagia. POST-ENDOSCOPIC DIAGNOSES: 1. Erosive gastritis, status post biopsy of the antrum. 2. Status post gastrostomy tube placement. PROCEDURE: Upper gastrointestinal endoscopy with enteroscopy and biopsy as well as gastrostomy tube placement. DESCRIPTION OF PROCEDURE: The procedure, its risks, indications, alternatives, and possible complications were explained to the conservator and informed consent was obtained. The patient was then sedated in the supine position. A diagnostic upper endoscope was introduced through the oropharynx and advanced to the third portion of duodenum. The endoscope was then gradually withdrawn and the mucosa examined carefully. Examination of the upper gastrointestinal mucosa revealed erosive gastritis with bits of blood in the stomach. A location for placement of gastrostomy tube was identified by the palpation and transillumination techniques. The outside skin was sterilely prepared, anesthetized, incised, and a trocar needle was used to place the gastrostomy tube using the standard pull technique. The endoscope was reintroduced into the oropharynx and advanced to the stomach to verify position and biopsies of the antrum were sent to pathology for review. The patient was sent to recovery in good condition. COMPLICATIONS: None. RECOMMENDATIONS: 1. Follow up biopsy results. 2. Check and treat Helicobacter pylori if positive. 3. Observe overnight. 4. Begin tube feedings tomorrow. Michael Estevez M.D. DR: Ishaan JOB#: [id number] CC:
[2018-02-22] MEDS: Dyna-Hex 2% Top Sol 2oz TOPIC SCH (20:53)
--- NOTE | 2018-02-22 21:53 | General Progress Note ---
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 - mild hypnatremia - etiology - pneumonitis - failed swallow - h/o CHF - Fever and Leukocytosis - resolved Recommendations - PEG placement today - free water restriction - Abx - Hold TF until tomorrow - optimize pulmonary parameters Subjective Allergies: Coded Allergies: SULFA (SULFONAMIDE ANTIBIOTICS) (Verified Allergy, Unknown, 09/02/15) Subjective Above noted doing better WBC now normal breathing better for PEG today labs reviewed Objective Last 24 Hour Vital Signs Date Time Temp Pulse Resp B/P (MAP) Pulse Ox O2 Delivery O2 Flow Rate FiO2 02/22/18 20:54 90 105/66 02/22/18 20:00 87 02/22/18 20:00 97.7 90 20 105/66 (79) 98 97.7 02/22/18 19:45 93 20 99 Nasal Cannula 3.0 32 02/22/18 19:38 91 20 98 Nasal Cannula 3.0 32 02/22/18 19:37 Nasal Cannula 3.0 32 02/22/18 19:36 98 Nasal Cannula 3.0 32 02/22/18 16:00 83 02/22/18 16:00 97.8 84 20 113/78 (90) 99 97.8 02/22/18 16:00 4.0 02/22/18 15:25 61 20 99 Nasal Cannula 3.0 32 02/22/18 15:13 64 20 94 Nasal Cannula 3.0 32 02/22/18 12:13 65 20 99 Nasal Cannula 3.0 32 02/22/18 12:00 78 02/22/18 12:00 4.0 02/22/18 12:00 98.6 67 20 118/67 (84) 95 98.6 02/22/18 11:59 59 20 95 Nasal Cannula 3.0 32 02/22/18 11:09 207.1 87 18 96 02/22/18 11:07 207.1 91 18 94 02/22/18 10:48 78 18 97/38 98 Nasal Cannula 4 02/22/18 10:40 83 18 86/45 98 Nasal Cannula 4 02/22/18 10:29 87 18 84/52 94 Nasal Cannula 4 02/22/18 10:24 92 18 83/45 94 Nasal Cannula 4 02/22/18 10:19 97.3 91 18 88/48 94 Nasal Cannula 4 97.3 02/22/18 09:00 Nasal Cannula 4.0 02/22/18 08:24 Nasal Cannula 3.0 32 02/22/18 08:23 94 Nasal Cannula 3.0 32 02/22/18 08:22 79 20 98 Nasal Cannula 3.0 32 02/22/18 08:13 76 96/68 02/22/18 08:11 79 18 94 Nasal Cannula 3.0 32 02/22/18 08:00 78 02/22/18 08:00 4.0 02/22/18 08:00 98.1 76 20 96/66 (76) 95 98.1 02/22/18 05:03 79 20 95 3.0 32 02/22/18 04:00 35 02/22/18 04:00 98.0 68 20 118/67 (84) 98 98.0 02/22/18 04:00 77 02/22/18 03:35 67 18 98 Facial 35 02/22/18 03:32 67 18 98 Bi-pap 35 02/22/18 03:17 65 19 Bi-pap 35 02/22/18 03:15 65 19 98 Bi-pap 35 02/22/18 00:30 70 20 96 Facial 35 02/22/18 00:00 74 02/22/18 00:00 35 02/22/18 00:00 97.5 68 20 124/65 (84) 98 97.5 02/21/18 22:29 78 24 97 Bi-pap 35 02/21/18 22:29 77 21 99 Facial 35 02/21/18 22:14 75 20 93 Nasal Cannula 3.0 32 Intake and Output 02/21/18 02/22/18 19:00 07:00 Intake Total 165 ml 825 ml Output Total 600 ml 600 ml Balance -435 ml 225 ml IV Total 165 ml 825 ml Output Urine Total 600 ml 600 ml Laboratory Tests 02/22/18 08:30: Hemoglobin A1c 5.6, Vancomycin Level Trough 15.9H Height (Feet): 5 Height (Inches): 5.00 Weight (Pounds): 117 Objective WDWN WM NCAT supple Chest b/l Ronchi RR abd soft ND no edema OBS Michael Estevez MD Feb 22, 2018 21:53
--- NOTE | 2018-02-22 21:59 | Pulmonology Progress Note ---
Assessment/Plan Problems: (1) Pneumonia (2) Sepsis (3) Congenital heart disease, adult (4) Down syndrome (5) Mental retardation (6) Anxiety Assessment/Plan ASSESSMENT: The patient is a 67-year-old male with a history of mental retardation and chronic subdural hematomas, recently admitted to [facility] with tracheobronchitis and poor mucociliary clearance, now presenting with dehydration, mild troponin elevation, acute kidney injury, and possible right infrahilar infiltrate. PROBLEM LIST: 1. Respiratory failure 2. Right perihilar infiltrate, healthcare-associated pneumonia. 3. MRSA sepsis and pneumonia 4. Acute kidney injury, likely dehydration. 5. Mild troponin elevation, likely demand ischemia. 6. History of recurrent aspiration pneumonia in the past. 7. Chronic subdural hematoma. 8. Mental retardation. 9. Hypothyroidism. 10. Chronic right bundle-branch block. 11. Acute on chronic CVA 12. Elevated D-dimer with negative Duplex and VQ 13. Dysphagia S/P PEG TREATMENT PLAN: 1. Monitor respiratory statis 2. BiPAP PRN and qHS 3. Titrate down FiO2 to keep SaO2 > 90%. 4. RTC and PRN HHN's, CPT 5. Mucomyst HHN's 6. Abx per ID, F/U Cx's 7. NPO, start TF's tommorrow 8. Monitor volumes 9. Hep SQ for DVT Px 10. FC Subjective Allergies: Coded Allergies: SULFA (SULFONAMIDE ANTIBIOTICS) (Verified Allergy, Unknown, 09/02/15) Subjective AFVSS, O2 needs stable, S/P PEG, no distress, secretions less no F/C Objective Last 24 Hour Vital Signs Date Time Temp Pulse Resp B/P (MAP) Pulse Ox O2 Delivery O2 Flow Rate FiO2 02/22/18 20:54 90 105/66 02/22/18 20:00 87 02/22/18 20:00 97.7 90 20 105/66 (79) 98 97.7 02/22/18 19:45 93 20 99 Nasal Cannula 3.0 32 02/22/18 19:38 91 20 98 Nasal Cannula 3.0 32 02/22/18 19:37 Nasal Cannula 3.0 32 02/22/18 19:36 98 Nasal Cannula 3.0 32 02/22/18 16:00 83 02/22/18 16:00 97.8 84 20 113/78 (90) 99 97.8 02/22/18 16:00 4.0 02/22/18 15:25 61 20 99 Nasal Cannula 3.0 32 02/22/18 15:13 64 20 94 Nasal Cannula 3.0 32 02/22/18 12:13 65 20 99 Nasal Cannula 3.0 32 02/22/18 12:00 78 02/22/18 12:00 4.0 02/22/18 12:00 98.6 67 20 118/67 (84) 95 98.6 02/22/18 11:59 59 20 95 Nasal Cannula 3.0 32 02/22/18 11:09 207.1 87 18 96 02/22/18 11:07 207.1 91 18 94 02/22/18 10:48 78 18 97/38 98 Nasal Cannula 4 02/22/18 10:40 83 18 86/45 98 Nasal Cannula 4 02/22/18 10:29 87 18 84/52 94 Nasal Cannula 4 02/22/18 10:24 92 18 83/45 94 Nasal Cannula 4 02/22/18 10:19 97.3 91 18 88/48 94 Nasal Cannula 4 97.3 02/22/18 09:00 Nasal Cannula 4.0 02/22/18 08:24 Nasal Cannula 3.0 32 02/22/18 08:23 94 Nasal Cannula 3.0 32 02/22/18 08:22 79 20 98 Nasal Cannula 3.0 32 02/22/18 08:13 76 96/68 02/22/18 08:11 79 18 94 Nasal Cannula 3.0 32 02/22/18 08:00 78 02/22/18 08:00 4.0 02/22/18 08:00 98.1 76 20 96/66 (76) 95 98.1 02/22/18 05:03 79 20 95 3.0 32 02/22/18 04:00 35 02/22/18 04:00 98.0 68 20 118/67 (84) 98 98.0 02/22/18 04:00 77 02/22/18 03:35 67 18 98 Facial 35 02/22/18 03:32 67 18 98 Bi-pap 35 02/22/18 03:17 65 19 Bi-pap 35 02/22/18 03:15 65 19 98 Bi-pap 35 02/22/18 00:30 70 20 96 Facial 35 02/22/18 00:00 74 02/22/18 00:00 35 02/22/18 00:00 97.5 68 20 124/65 (84) 98 97.5 02/21/18 22:29 78 24 97 Bi-pap 35 02/21/18 22:29 77 21 99 Facial 35 02/21/18 22:14 75 20 93 Nasal Cannula 3.0 32 Intake and Output 02/21/18 02/22/18 19:00 07:00 Intake Total 165 ml 825 ml Output Total 600 ml 600 ml Balance -435 ml 225 ml IV Total 165 ml 825 ml Output Urine Total 600 ml 600 ml General Appearance: no acute distress, cachetic HEENT: normocephalic, atraumatic, anicteric, mucous membranes moist Respiratory/Chest: chest wall non-tender, no respiratory distress, no accessory muscle use, rhonchi Cardiovascular: normal peripheral pulses, normal rate, regular rhythm Abdomen: normal bowel sounds, soft, non tender, no organomegaly, non distended , no mass, other - GT Extremities: no cyanosis, no clubbing, no edema Laboratory Tests 02/22/18 08:30: Hemoglobin A1c 5.6, Vancomycin Level Trough 15.9H Current Medications Medications (Trade) Dose Ordered Sig/Eddy Route PRN Reason Start Time Stop Time Status Last Admin Dose Admin Acetaminophen (Tylenol) 650 mg Q6H PRN NG Mild Pain/Temp > 100.5 02/11/18 18:18 03/12/18 18:17 02/19/18 03:50 Acetylcysteine (Mucomyst) 100 mg Q4HRT HHN 02/21/18 19:00 03/23/18 18:59 02/22/18 19:40 Aspirin (ASA) 81 mg DAILY NG 02/12/18 09:00 03/14/18 08:59 02/21/18 08:26 Atorvastatin Calcium (Lipitor) 10 mg BEDTIME NG 02/11/18 21:00 03/09/18 20:59 02/22/18 20:53 Calcium Carbonate (Tums) 500 mg THREE TIMES A DAY GT 02/12/18 09:00 03/09/18 08:59 02/22/18 17:05 Chlorhexidine Gluconate (Tesha-Hex 2%) 1 applic DAILY@2000 TOPIC 02/19/18 20:00 03/21/18 19:59 02/22/18 20:53 Dextrose (Dextrose 50%) 25 ml Q30M PRN IV Hypoglycemia 02/22/18 16:15 03/24/18 16:14 Docusate Sodium (Colace) 100 mg TWICE A DAY NG 02/12/18 09:00 03/13/18 08:59 02/22/18 17:05 Guaifenesin (Robitussin) 100 mg Q4H PRN NG For Cough 02/13/18 13:45 03/14/18 18:14 Heparin Sodium (Porcine) (Heparin 5000 units/ml) 5,000 units EVERY 8 HOURS SUBQ 02/23/18 14:00 03/25/18 13:59 Insulin Aspart (NovoLOG) BEFORE MEALS AND HS SUBQ 02/22/18 16:30 03/24/18 16:29 Levetiracetam (Keppra) 1,000 mg Q12HR NG 02/16/18 21:00 03/18/18 20:59 02/22/18 20:53 Levothyroxine Sodium (Synthroid) 125 mcg DAILY NG 02/17/18 09:00 03/19/18 08:59 02/22/18 11:46 Magnesium Hydroxide (Mom) 30 ml HSPRN PRN NG Constipation 02/11/18 21:00 03/09/18 20:59 Meropenem 1 gm/ Sodium Chloride 55 ml @ 110 mls/hr Q8H IVPB 02/18/18 11:00 02/27/18 10:59 02/22/18 18:05 Metoprolol Tartrate (Lopressor) 5 mg Q4H PRN IVP hr>130 02/11/18 18:19 03/09/18 18:18 Metoprolol Tartrate (Lopressor) 12.5 mg Q12HR NG 02/11/18 21:00 03/09/18 08:59 02/22/18 20:54 Olanzapine (ZyPREXA) 5 mg DAILY@2100 NG 02/11/18 21:00 03/12/18 20:59 02/22/18 20:54 Pantoprazole (Protonix) 40 mg DAILY IVP 02/12/18 09:00 03/09/18 09:20 02/21/18 08:26 Sodium Chloride 1,000 ml @ 50 mls/hr Q20H IV 02/22/18 12:00 03/24/18 11:59 02/22/18 11:48 Triamcinolone Acetonide (Kenalog 0.025% Oint) 1 applic THREE TIMES A DAY TOPIC 02/14/18 18:00 03/16/18 17:59 02/22/18 17:05 Vancomycin HCl (Vanco rx to dose) 1 ea DAILY PRN MISC PER PHARMACY 02/12/18 09:00 03/09/18 07:29 Vancomycin HCl 500 mg/Dextrose 110 ml @ 110 mls/hr Q12HR@0100,1300 IVPB 02/22/18 13:00 02/27/18 12:59 02/22/18 13:14 Sae Forrest MD Feb 22, 2018 21:59
[2018-02-22] MEDS ORDERED: Albuterol/Ipratropium 3ml neb ONE (22:49)
[2018-02-23] VITALS: BP 126/64
[2018-02-23] MEDS: Vancomycin 500 MG in D5W 110 ML IVPB SCH ×2 (01:17→13:38)
[2018-02-23] MEDS: Meropenem 1 GM in NS 55 ML IVPB SCH ×3 (03:35→18:09)
[2018-02-23 04:00] VITALS: BP 129/72
[2018-02-23 05:47] LABS: BASOPHILS % (AUTO) 0.9 % (0.0-2.0); EOSINOPHILS % (AUTO) 1.3 % (0.0-3.0); HEMATOCRIT 34.7 % (42.0-52.0); HEMOGLOBIN 11.5 G/DL (14.2-18.0); LYMPHOCYTES % (AUTO) 13.8 % (20.0-45.0); MEAN CORPUSCULAR VOLUME 96 FL (80-99); MONOCYTES % (AUTO) 8.7 % (1.0-10.0); NEUTROPHILS % (AUTO) 75.4 % (45.0-75.0); PLATELET COUNT 266 K/UL (150-450); RED BLOOD COUNT 3.61 M/UL (4.70-6.10); RED CELL DISTRIBUTION WIDTH 13.5 % (11.6-14.8); WHITE BLOOD COUNT 9.3 K/UL (4.8-10.8)
[2018-02-23 06:14] LABS: ANION GAP 5 mmol/L (5-15); BLOOD UREA NITROGEN 12 mg/dL (7-18); CALCIUM 8.8 MG/DL (8.5-10.1); CARBON DIOXIDE 30 MMOL/L (21-32); CHLORIDE 105 MMOL/L (98-107); CREATININE 0.8 MG/DL (0.55-1.30); POTASSIUM 3.8 MMOL/L (3.5-5.1); SODIUM 140 MMOL/L (136-145)
[2018-02-23] MEDS: NovoLOG Insulin Flexpen SUBQ SCH ×4 (06:30→21:00)
[2018-02-23 08:17] VITALS: BP 99/46
--- NOTE | 2018-02-23 08:59 | Pulmonology Progress Note ---
Assessment/Plan Problems: (1) Pneumonia (2) Sepsis (3) Congenital heart disease, adult (4) Down syndrome (5) Mental retardation (6) Anxiety Assessment/Plan ASSESSMENT: The patient is a 67-year-old male with a history of mental retardation and chronic subdural hematomas, recently admitted to [facility] with tracheobronchitis and poor mucociliary clearance, now presenting with dehydration, mild troponin elevation, acute kidney injury, and possible right infrahilar infiltrate. PROBLEM LIST: 1. Respiratory failure 2. Right perihilar infiltrate, healthcare-associated pneumonia. 3. MRSA sepsis and pneumonia 4. Acute kidney injury, likely dehydration. 5. Mild troponin elevation, likely demand ischemia. 6. History of recurrent aspiration pneumonia in the past. 7. Chronic subdural hematoma. 8. Mental retardation. 9. Hypothyroidism. 10. Chronic right bundle-branch block. 11. Acute on chronic CVA 12. Elevated D-dimer with negative Duplex and VQ 13. Dysphagia S/P PEG TREATMENT PLAN: 1. Monitor respiratory status 2. BiPAP PRN and qHS 3. Titrate down FiO2 to keep SaO2 > 90%. 4. RTC and PRN HHN's, CPT 5. Mucomyst HHN's 6. Abx per ID, F/U Cx's 7. NPO, start TF's today? 8. Monitor volumes 9. Hep SQ for DVT Px 10. FC Subjective Allergies: Coded Allergies: SULFA (SULFONAMIDE ANTIBIOTICS) (Verified Allergy, Unknown, 09/02/15) Subjective AFVSS, O2 needs stable, no distress, secretions less no F/C Objective Last 24 Hour Vital Signs Date Time Temp Pulse Resp B/P (MAP) Pulse Ox O2 Delivery O2 Flow Rate FiO2 02/23/18 08:17 98.2 97 20 99/46 (63) 92 98.2 02/23/18 07:02 Nasal Cannula 3.0 32 02/23/18 07:02 100 Nasal Cannula 3.0 32 02/23/18 06:56 Nasal Cannula 3.0 32 02/23/18 06:56 Nasal Cannula 3.0 32 02/23/18 04:50 80 20 98 4.0 36 02/23/18 04:00 97.3 88 18 129/72 (91) 100 97.3 02/23/18 04:00 80 02/23/18 04:00 35 02/23/18 03:25 82 16 99 Facial 35 02/23/18 03:24 92 16 99 Bi-pap 35 02/23/18 03:21 82 19 99 Bi-pap 35 02/23/18 00:53 83 16 97 Facial 35 02/23/18 00:00 98.2 89 18 126/64 (84) 98 98.2 02/23/18 00:00 87 02/23/18 00:00 35 02/22/18 23:05 86 19 99 Bi-pap 35 02/22/18 22:56 85 22 99 Bi-pap 35 02/22/18 22:41 85 22 99 Facial 35 02/22/18 21:00 Nasal Cannula 4.0 02/22/18 20:54 90 105/66 02/22/18 20:00 87 02/22/18 20:00 97.7 90 20 105/66 (79) 98 97.7 02/22/18 20:00 4.0 02/22/18 19:45 93 20 99 Nasal Cannula 3.0 32 02/22/18 19:38 91 20 98 Nasal Cannula 3.0 32 02/22/18 19:37 Nasal Cannula 3.0 32 02/22/18 19:36 98 Nasal Cannula 3.0 32 02/22/18 16:00 83 02/22/18 16:00 97.8 84 20 113/78 (90) 99 97.8 02/22/18 16:00 4.0 02/22/18 15:25 61 20 99 Nasal Cannula 3.0 32 02/22/18 15:13 64 20 94 Nasal Cannula 3.0 32 02/22/18 12:13 65 20 99 Nasal Cannula 3.0 32 02/22/18 12:00 78 02/22/18 12:00 4.0 02/22/18 12:00 98.6 67 20 118/67 (84) 95 98.6 02/22/18 11:59 59 20 95 Nasal Cannula 3.0 32 02/22/18 11:09 207.1 87 18 96 02/22/18 11:07 207.1 91 18 94 02/22/18 10:48 78 18 97/38 98 Nasal Cannula 4 02/22/18 10:40 83 18 86/45 98 Nasal Cannula 4 02/22/18 10:29 87 18 84/52 94 Nasal Cannula 4 02/22/18 10:24 92 18 83/45 94 Nasal Cannula 4 02/22/18 10:19 97.3 91 18 88/48 94 Nasal Cannula 4 97.3 02/22/18 09:00 Nasal Cannula 4.0 Intake and Output 02/22/18 02/23/18 19:00 07:00 Intake Total 300 ml 1025 ml Output Total 550 ml 700 ml Balance -250 ml 325 ml Free Water 60 ml IV Total 300 ml 715 ml Tube Feeding 250 ml Output Urine Total 550 ml 700 ml General Appearance: no acute distress, cachetic HEENT: normocephalic, atraumatic, anicteric, mucous membranes moist Respiratory/Chest: rhonchi Cardiovascular: normal peripheral pulses, normal rate, regular rhythm Abdomen: normal bowel sounds, soft, non tender, no organomegaly, non distended , no mass Extremities: no cyanosis, no clubbing, no edema Laboratory Tests 02/23/18 04:00: White Blood Count 9.3, Red Blood Count 3.61L, Hemoglobin 11.5L, Hematocrit 34.7L , Mean Corpuscular Volume 96, Mean Corpuscular Hemoglobin 31.8H, Mean Corpuscular Hemoglobin Concent 33.1, Red Cell Distribution Width 13.5, Platelet Count 266, Mean Platelet Volume 7.8, Neutrophils (%) (Auto) 75.4H, Lymphocytes ( %) (Auto) 13.8L, Monocytes (%) (Auto) 8.7, Eosinophils (%) (Auto) 1.3, Basophils (%) (Auto) 0.9, Sodium Level 140, Potassium Level 3.8, Chloride Level 105, Carbon Dioxide Level 30, Anion Gap 5, Blood Urea Nitrogen 12, Creatinine 0.8, Estimat Glomerular Filtration Rate > 60, Glucose Level 103, Calcium Level 8.8, Pro-B-Type Natriuretic Peptide 1277H Current Medications Medications (Trade) Dose Ordered Sig/Eddy Route PRN Reason Start Time Stop Time Status Last Admin Dose Admin Acetaminophen (Tylenol) 650 mg Q6H PRN NG Mild Pain/Temp > 100.5 02/11/18 18:18 03/12/18 18:17 02/19/18 03:50 Acetylcysteine (Mucomyst) 100 mg Q4HRT HHN 02/21/18 19:00 03/23/18 18:59 02/22/18 22:57 Aspirin (ASA) 81 mg DAILY NG 02/12/18 09:00 03/14/18 08:59 02/21/18 08:26 Atorvastatin Calcium (Lipitor) 10 mg BEDTIME NG 02/11/18 21:00 03/09/18 20:59 02/22/18 20:53 Calcium Carbonate (Tums) 500 mg THREE TIMES A DAY GT 02/12/18 09:00 03/09/18 08:59 02/22/18 17:05 Chlorhexidine Gluconate (Tesha-Hex 2%) 1 applic DAILY@2000 TOPIC 02/19/18 20:00 03/21/18 19:59 02/22/18 20:53 Dextrose (Dextrose 50%) 25 ml Q30M PRN IV Hypoglycemia 02/22/18 16:15 03/24/18 16:14 Docusate Sodium (Colace) 100 mg TWICE A DAY NG 02/12/18 09:00 03/13/18 08:59 02/22/18 17:05 Guaifenesin (Robitussin) 100 mg Q4H PRN NG For Cough 02/13/18 13:45 03/14/18 18:14 Heparin Sodium (Porcine) (Heparin 5000 units/ml) 5,000 units EVERY 8 HOURS SUBQ 02/23/18 14:00 03/25/18 13:59 Insulin Aspart (NovoLOG) BEFORE MEALS AND HS SUBQ 02/22/18 16:30 03/24/18 16:29 Levetiracetam (Keppra) 1,000 mg Q12HR NG 02/16/18 21:00 03/18/18 20:59 02/22/18 20:53 Levothyroxine Sodium (Synthroid) 125 mcg DAILY NG 02/17/18 09:00 03/19/18 08:59 02/22/18 11:46 Magnesium Hydroxide (Mom) 30 ml HSPRN PRN NG Constipation 02/11/18 21:00 03/09/18 20:59 Meropenem 1 gm/ Sodium Chloride 55 ml @ 110 mls/hr Q8H IVPB 02/18/18 11:00 02/27/18 10:59 02/23/18 03:35 Metoprolol Tartrate (Lopressor) 5 mg Q4H PRN IVP hr>130 02/11/18 18:19 03/09/18 18:18 Metoprolol Tartrate (Lopressor) 12.5 mg Q12HR NG 02/11/18 21:00 03/09/18 08:59 02/22/18 20:54 Olanzapine (ZyPREXA) 5 mg DAILY@2100 NG 02/11/18 21:00 03/12/18 20:59 02/22/18 20:54 Pantoprazole (Protonix) 40 mg DAILY IVP 02/12/18 09:00 03/09/18 09:20 02/21/18 08:26 Sodium Chloride 1,000 ml @ 50 mls/hr Q20H IV 02/22/18 12:00 03/24/18 11:59 02/22/18 11:48 Triamcinolone Acetonide (Kenalog 0.025% Oint) 1 applic THREE TIMES A DAY TOPIC 02/14/18 18:00 03/16/18 17:59 02/22/18 17:05 Vancomycin HCl (Vanco rx to dose) 1 ea DAILY PRN MISC PER PHARMACY 02/12/18 09:00 03/09/18 07:29 Vancomycin HCl 500 mg/Dextrose 110 ml @ 110 mls/hr Q12HR@0100,1300 IVPB 02/22/18 13:00 02/27/18 12:59 02/23/18 01:17 Sae Forrest MD Feb 23, 2018 08:59
[2018-02-23] MEDS: Docusate 100mg/10ml Liq NG SCH ×2 (09:45→17:08)
[2018-02-23] MEDS: Pantoprazole Inj IVP SCH (09:45)
[2018-02-23] MEDS: levETIRAcetam 500mg/5ml Liquid NG SCH ×2 (09:45→20:58)
[2018-02-23] MEDS: Metoprolol Tartrate 12.5mg TAB NG SCH ×2 (09:46→21:00)
[2018-02-23] MEDS: Tums 500mg GT SCH ×3 (09:46→17:08)
[2018-02-23] MEDS: Aspirin Baby 81mg NG SCH (09:46)
[2018-02-23] MEDS: Levothyroxine 125mcg tab NG SCH (09:47)
[2018-02-23] MEDS: Triamcinolone 0.025% oint TOPIC SCH ×3 (10:02→17:09)
[2018-02-23] MEDS ORDERED: NS 275ml ONE (10:23)
[2018-02-23] MEDS ORDERED: D5 1/2NS 1000ml IV ONE (10:23)
[2018-02-23] MEDS ORDERED: Sterile Water Irrig 1000ml IRRIG ONE (10:23)
[2018-02-23] MEDS ORDERED: Tubing IV Secondary IV ONE (10:23)
--- NOTE | 2018-02-23 10:28 | Infectious Diseases Prog Note ---
"Assessment/Plan Assessment/Plan antibiotics : vancomycin iv, meropenem A 1. MRSA | e.coli pneumonia 2. respiratory failure resolved 3. subdural hematoma 4. mental retardation 5. MRSA sepsis ? endocarditis 6. CVA 7. leucocytosis improving P 1. continue vancomycin iv 11 more days 2. continue meropenem 4 more days 3. will follow up cultures Subjective ROS Limited/Unobtainable: Yes Allergies: Coded Allergies: SULFA (SULFONAMIDE ANTIBIOTICS) (Verified Allergy, Unknown, 09/02/15) Objective Vital Signs Last 24 Hour Vital Signs Date Time Temp Pulse Resp B/P (MAP) Pulse Ox O2 Delivery O2 Flow Rate FiO2 02/23/18 09:46 97 99/46 02/23/18 08:17 98.2 97 20 99/46 (63) 92 98.2 02/23/18 07:02 Nasal Cannula 3.0 32 02/23/18 07:02 100 Nasal Cannula 3.0 32 02/23/18 06:56 Nasal Cannula 3.0 32 02/23/18 06:56 Nasal Cannula 3.0 32 02/23/18 04:50 80 20 98 4.0 36 02/23/18 04:00 97.3 88 18 129/72 (91) 100 97.3 02/23/18 04:00 80 02/23/18 04:00 35 02/23/18 03:25 82 16 99 Facial 35 02/23/18 03:24 92 16 99 Bi-pap 35 02/23/18 03:21 82 19 99 Bi-pap 35 02/23/18 00:53 83 16 97 Facial 35 02/23/18 00:00 98.2 89 18 126/64 (84) 98 98.2 02/23/18 00:00 87 02/23/18 00:00 35 02/22/18 23:05 86 19 99 Bi-pap 35 02/22/18 22:56 85 22 99 Bi-pap 35 02/22/18 22:41 85 22 99 Facial 35 02/22/18 21:00 Nasal Cannula 4.0 02/22/18 20:54 90 105/66 02/22/18 20:00 87 02/22/18 20:00 97.7 90 20 105/66 (79) 98 97.7 02/22/18 20:00 4.0 02/22/18 19:45 93 20 99 Nasal Cannula 3.0 32 02/22/18 19:38 91 20 98 Nasal Cannula 3.0 32 02/22/18 19:37 Nasal Cannula 3.0 32 02/22/18 19:36 98 Nasal Cannula 3.0 32 02/22/18 16:00 83 02/22/18 16:00 97.8 84 20 113/78 (90) 99 97.8 02/22/18 16:00 4.0 02/22/18 15:25 61 20 99 Nasal Cannula 3.0 32 02/22/18 15:13 64 20 94 Nasal Cannula 3.0 32 02/22/18 12:13 65 20 99 Nasal Cannula 3.0 32 02/22/18 12:00 78 02/22/18 12:00 4.0 02/22/18 12:00 98.6 67 20 118/67 (84) 95 98.6 02/22/18 11:59 59 20 95 Nasal Cannula 3.0 32 02/22/18 11:09 207.1 87 18 96 02/22/18 11:07 207.1 91 18 94 02/22/18 10:48 78 18 97/38 98 Nasal Cannula 4 02/22/18 10:40 83 18 86/45 98 Nasal Cannula 4 02/22/18 10:29 87 18 84/52 94 Nasal Cannula 4 Height (Feet): 5 Height (Inches): 5.00 Weight (Pounds): 120 Respiratory/Chest: lungs clear Cardiovascular: normal rate, regular rhythm, no gallop/murmur Abdomen: soft, non tender, other - GT Extremities: no edema, other - left arm PICC Skin: rash - erythematous Laboratory Tests Test 02/23/18 04:00 White Blood Count 9.3 K/UL (4.8-10.8) Red Blood Count 3.61 M/UL (4.70-6.10) L Hemoglobin 11.5 G/DL (14.2-18.0) L Hematocrit 34.7 % (42.0-52.0) L Mean Corpuscular Volume 96 FL (80-99) Mean Corpuscular Hemoglobin 31.8 PG (27.0-31.0) H Mean Corpuscular Hemoglobin Concent 33.1 G/DL (32.0-36.0) Red Cell Distribution Width 13.5 % (11.6-14.8) Platelet Count 266 K/UL (150-450) Mean Platelet Volume 7.8 FL (6.5-10.1) Neutrophils (%) (Auto) 75.4 % (45.0-75.0) H Lymphocytes (%) (Auto) 13.8 % (20.0-45.0) L Monocytes (%) (Auto) 8.7 % (1.0-10.0) Eosinophils (%) (Auto) 1.3 % (0.0-3.0) Basophils (%) (Auto) 0.9 % (0.0-2.0) Sodium Level 140 MMOL/L (136-145) Potassium Level 3.8 MMOL/L (3.5-5.1) Chloride Level 105 MMOL/L (98-107) Carbon Dioxide Level 30 MMOL/L (21-32) Anion Gap 5 mmol/L (5-15) Blood Urea Nitrogen 12 mg/dL (7-18) Creatinine 0.8 MG/DL (0.55-1.30) Estimat Glomerular Filtration Rate > 60 mL/min (>60) Glucose Level 103 MG/DL (74-106) Calcium Level 8.8 MG/DL (8.5-10.1) Pro-B-Type Natriuretic Peptide 1277 pg/mL (0-125) H Current Medications Medications (Trade) Dose Ordered Sig/Eddy Route PRN Reason Start Time Stop Time Status Last Admin Dose Admin Acetaminophen (Tylenol) 650 mg Q6H PRN NG Mild Pain/Temp > 100.5 02/11/18 18:18 03/12/18 18:17 02/19/18 03:50 Acetylcysteine (Mucomyst) 100 mg Q4HRT [facility] 02/21/18 19:00 03/23/18 18:59 02/22/18 22:57 Albuterol/ Ipratropium (Albuterol/ Ipratropium) 3 ml Q4HRT [facility] 02/23/18 11:00 02/28/18 10:59 UNV Aspirin (ASA) 81 mg DAILY 02/12/18 09:00 03/14/18 08:59 02/23/18 09:46 Atorvastatin Calcium (Lipitor) 10 mg BEDTIME NG 02/11/18 21:00 03/09/18 20:59 02/22/18 20:53 Calcium Carbonate (Tums) 500 mg THREE TIMES A DAY GT 02/12/18 09:00 03/09/18 08:59 02/23/18 09:46 Chlorhexidine Gluconate (Tesha-Hex 2%) 1 applic DAILY@2000 TOPIC 02/19/18 20:00 03/21/18 19:59 02/22/18 20:53 Dextrose (Dextrose 50%) 25 ml Q30M PRN IV Hypoglycemia 02/22/18 16:15 03/24/18 16:14 Docusate Sodium (Colace) 100 mg TWICE A DAY NG 02/12/18 09:00 03/13/18 08:59 02/23/18 09:45 Guaifenesin (Robitussin) 100 mg Q4H PRN NG For Cough 02/13/18 13:45 03/14/18 18:14 Heparin Sodium (Porcine) (Heparin 5000 units/ml) 5,000 units EVERY 8 HOURS SUBQ 02/23/18 14:00 03/25/18 13:59 Insulin Aspart (NovoLOG) BEFORE MEALS AND HS SUBQ 02/22/18 16:30 03/24/18 16:29 Levetiracetam (Keppra) 1,000 mg Q12HR NG 02/16/18 21:00 03/18/18 20:59 02/23/18 09:45 Levothyroxine Sodium (Synthroid) 125 mcg DAILY NG 02/17/18 09:00 03/19/18 08:59 02/23/18 09:47 Magnesium Hydroxide (Mom) 30 ml HSPRN PRN NG Constipation 02/11/18 21:00 03/09/18 20:59 Meropenem 1 gm/ Sodium Chloride 55 ml @ 110 mls/hr Q8H IVPB 02/18/18 11:00 02/27/18 10:59 02/23/18 03:35 Metoprolol Tartrate (Lopressor) 5 mg Q4H PRN IVP hr>130 02/11/18 18:19 03/09/18 18:18 Metoprolol Tartrate (Lopressor) 12.5 mg Q12HR NG 02/11/18 21:00 03/09/18 08:59 02/23/18 09:46 Olanzapine (ZyPREXA) 5 mg DAILY@2100 NG 02/11/18 21:00 03/12/18 20:59 02/22/18 20:54 Pantoprazole (Protonix) 40 mg DAILY IVP 02/12/18 09:00 03/09/18 09:20 02/23/18 09:45 Sodium Chloride 1,000 ml @ 50 mls/hr Q20H IV 02/22/18 12:00 03/24/18 11:59 02/23/18 09:42 Triamcinolone Acetonide (Kenalog 0.025% Oint) 1 applic THREE TIMES A DAY TOPIC 02/14/18 18:00 03/16/18 17:59 02/23/18 10:02 Vancomycin HCl (Vanco rx to dose) 1 ea DAILY PRN MISC PER PHARMACY 02/12/18 09:00 03/09/18 07:29 Vancomycin HCl 500 mg/Dextrose 110 ml @ 110 mls/hr Q12HR@0100,1300 IVPB 02/22/18 13:00 02/27/18 12:59 02/23/18 01:17 Robbie Johnston MD Feb 23, 2018 10:27"
[2018-02-23] MEDS: Albuterol/Ipratropium 3ml neb HHN SCH ×4 (11:00→22:49)
[2018-02-23 12:00] VITALS: BP 90/53
[2018-02-23] MEDS: Heparin 5000 units/ml inj SUBQ SCH ×2 (13:33→21:01)
[2018-02-23 16:00] VITALS: BP 99/50
--- NOTE | 2018-02-23 18:57 | General Progress Note ---
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 - mild hypnatremia - etiology - pneumonitis - failed swallow - s/p PEG - h/o CHF - Fever and Leukocytosis - resolved Recommendations - TF via GT - free water restriction - Abx - optimize pulmonary parameters - d/c planning Subjective Allergies: Coded Allergies: SULFA (SULFONAMIDE ANTIBIOTICS) (Verified Allergy, Unknown, 09/02/15) Subjective TF started NAD comfortable Objective Last 24 Hour Vital Signs Date Time Temp Pulse Resp B/P (MAP) Pulse Ox O2 Delivery O2 Flow Rate FiO2 02/23/18 18:51 94 Nasal Cannula 3.0 32 02/23/18 18:51 Nasal Cannula 3.0 32 02/23/18 16:00 81 02/23/18 16:00 97.1 83 20 99/50 (66) 94 97.1 02/23/18 15:13 82 22 99 Nasal Cannula 3.0 32 02/23/18 15:03 78 22 99 Nasal Cannula 3.0 32 02/23/18 12:00 98.0 77 20 90/53 (65) 92 98.0 02/23/18 12:00 78 02/23/18 11:14 Nasal Cannula 3.0 32 02/23/18 11:14 Nasal Cannula 3.0 32 02/23/18 09:46 97 99/46 02/23/18 09:00 Nasal Cannula 4.0 02/23/18 08:17 98.2 97 20 99/46 (63) 92 98.2 02/23/18 08:00 85 02/23/18 07:02 Nasal Cannula 3.0 32 02/23/18 07:02 100 Nasal Cannula 3.0 32 02/23/18 06:56 Nasal Cannula 3.0 32 02/23/18 06:56 Nasal Cannula 3.0 32 02/23/18 04:50 80 20 98 4.0 36 02/23/18 04:00 97.3 88 18 129/72 (91) 100 97.3 02/23/18 04:00 80 02/23/18 04:00 35 02/23/18 03:25 82 16 99 Facial 35 02/23/18 03:24 92 16 99 Bi-pap 35 02/23/18 03:21 82 19 99 Bi-pap 35 02/23/18 00:53 83 16 97 Facial 35 02/23/18 00:00 98.2 89 18 126/64 (84) 98 98.2 02/23/18 00:00 87 02/23/18 00:00 35 02/22/18 23:05 86 19 99 Bi-pap 35 02/22/18 22:56 85 22 99 Bi-pap 35 02/22/18 22:41 85 22 99 Facial 35 02/22/18 21:00 Nasal Cannula 4.0 02/22/18 20:54 90 105/66 02/22/18 20:00 87 02/22/18 20:00 97.7 90 20 105/66 (79) 98 97.7 02/22/18 20:00 4.0 02/22/18 19:45 93 20 99 Nasal Cannula 3.0 32 02/22/18 19:38 91 20 98 Nasal Cannula 3.0 32 02/22/18 19:37 Nasal Cannula 3.0 32 02/22/18 19:36 98 Nasal Cannula 3.0 32 Intake and Output 02/22/18 02/23/18 19:00 07:00 Intake Total 300 ml 1225 ml Output Total 550 ml 700 ml Balance -250 ml 525 ml Free Water 160 ml IV Total 300 ml 765 ml Tube Feeding 300 ml Output Urine Total 550 ml 700 ml Laboratory Tests 02/23/18 04:00: White Blood Count 9.3, Red Blood Count 3.61L, Hemoglobin 11.5L, Hematocrit 34.7L , Mean Corpuscular Volume 96, Mean Corpuscular Hemoglobin 31.8H, Mean Corpuscular Hemoglobin Concent 33.1, Red Cell Distribution Width 13.5, Platelet Count 266, Mean Platelet Volume 7.8, Neutrophils (%) (Auto) 75.4H, Lymphocytes ( %) (Auto) 13.8L, Monocytes (%) (Auto) 8.7, Eosinophils (%) (Auto) 1.3, Basophils (%) (Auto) 0.9, Sodium Level 140, Potassium Level 3.8, Chloride Level 105, Carbon Dioxide Level 30, Anion Gap 5, Blood Urea Nitrogen 12, Creatinine 0.8, Estimat Glomerular Filtration Rate > 60, Glucose Level 103, Calcium Level 8.8, Pro-B-Type Natriuretic Peptide 1277H Height (Feet): 5 Height (Inches): 5.00 Weight (Pounds): 120 Objective WDWN WM NCAT supple Chest b/l Luis RR abd soft ND, (+) PEG no edema OBS Michael Estevez MD Feb 23, 2018 18:57
[2018-02-23 20:00] VITALS: BP 91/53
[2018-02-23] MEDS: Dyna-Hex 2% Top Sol 2oz TOPIC SCH (20:57)
--- NOTE | 2018-02-23 23:24 | General Progress Note ---
Assessment/Plan Status: progressing Assessment/Plan ASSESSMENT: 1. Shortness of breath, possibly secondary to pneumonia, possible sepsis. 2. Acute respiratory failure requiring BiPAP. 3. Acute kidney injury. 4. Elevated troponin, possibly from demand ischemia. 5. Developmental delay. 6. Dysphagia. 7. Psoriasis. 8. Acute left cerebellar infarction 9. MRSA bacteremia/Pneumonia/?endocarditis 10. epistaxis, secondary to trauma from NGT and suctioning 11. sepsis/recurrent asspiration pneumonia? 12. Vascular congestion 13. hypokalemia 14. S/P PEG placement on 02-22-18 PLAN: 1. Continue the patient on BiPAP support prn 2. Monitor vitals and I and O's. 3. advance NGT and start diet in cxr confirmed palcement 4. The patient was started on IV vancomycin and Zosyn. 5. To continue breathing treatment with frequent suctioning p.r.n. 6. Continue shelter medications. 7. Monitor troponin. 8. Heparin for DVT prophylaxis. 9. Protonix for GI prophylaxis. 10. Dr. Forrest, Pulmonary consult and Dr. Johnston, ID consult. 11. change aspirin to 81 mg daily 12. fu Echo and carotic us and venous duplex 13 gi consult appreciated, NGT for now repeat swallow eval later when more stable 14. NGT for meds and tube feeding 15. repeat Blood cultures to check for clearance of MRSA conitnue supportive care continue telemetry VQ scan negative for PE monitor labs ENT consult to evaluate for epistaxis, will check am cbc and INR/PTT PICC line placement for IV vanco for 11more days for possible endocarditis and Meropenam fo 4 more days per ID will dc to [facility] when bed available I spoke with Dr. Mckenna from [facility] who agrees to PEG for consent can call [phone] Nini Baltazar director or for Emergency [phone] PICC line placed 02-19-18 right groin line removed 02-19-18, fu cultures now on Vanco and Meopenam s/p iv lasix one dose yesterday with less congestion today echo to be repeated per cardiology tube feedings to be started at midnight NPO by mouth continue IV hydration am labs if stable may be transfered to snf or LTAC in next 1 to 2 days Subjective Date patient seen: Feb 23, 2018 ROS Limited/Unobtainable: Yes Allergies: Coded Allergies: SULFA (SULFONAMIDE ANTIBIOTICS) (Verified Allergy, Unknown, 09/02/15) Subjective s/p PEG today, saturating 98 % on room air, thinner secretions and histologic aide suctioning required now Objective Last 24 Hour Vital Signs Date Time Temp Pulse Resp B/P (MAP) Pulse Ox O2 Delivery O2 Flow Rate FiO2 02/23/18 23:05 73 23 94 Bi-pap 35 02/23/18 22:50 71 20 93 Nasal Cannula 3.0 32 02/23/18 22:49 70 25 96 Facial 35 02/23/18 21:00 Nasal Cannula 4.0 02/23/18 21:00 101 91/53 02/23/18 20:00 98.8 101 20 91/53 (66) 96 98.8 02/23/18 19:06 83 20 97 Nasal Cannula 3.0 32 02/23/18 18:51 94 Nasal Cannula 3.0 32 02/23/18 18:51 Nasal Cannula 3.0 32 02/23/18 18:51 81 20 94 Nasal Cannula 3.0 32 02/23/18 16:00 81 02/23/18 16:00 97.1 83 20 99/50 (66) 94 97.1 02/23/18 15:13 82 22 99 Nasal Cannula 3.0 32 02/23/18 15:03 78 22 99 Nasal Cannula 3.0 32 02/23/18 12:00 98.0 77 20 90/53 (65) 92 98.0 02/23/18 12:00 78 02/23/18 11:14 Nasal Cannula 3.0 32 02/23/18 11:14 Nasal Cannula 3.0 32 02/23/18 09:46 97 99/46 02/23/18 09:00 Nasal Cannula 4.0 02/23/18 08:17 98.2 97 20 99/46 (63) 92 98.2 02/23/18 08:00 85 02/23/18 07:02 Nasal Cannula 3.0 32 02/23/18 07:02 100 Nasal Cannula 3.0 32 02/23/18 06:56 Nasal Cannula 3.0 32 02/23/18 06:56 Nasal Cannula 3.0 32 02/23/18 04:50 80 20 98 4.0 36 02/23/18 04:00 97.3 88 18 129/72 (91) 100 97.3 02/23/18 04:00 80 02/23/18 04:00 35 02/23/18 03:25 82 16 99 Facial 35 02/23/18 03:24 92 16 99 Bi-pap 35 02/23/18 03:21 82 19 99 Bi-pap 35 02/23/18 00:53 83 16 97 Facial 35 02/23/18 00:00 98.2 89 18 126/64 (84) 98 98.2 02/23/18 00:00 87 02/23/18 00:00 35 Intake and Output 02/22/18 02/23/18 19:00 07:00 Intake Total 300 ml 1225 ml Output Total 550 ml 700 ml Balance -250 ml 525 ml Free Water 160 ml IV Total 300 ml 765 ml Tube Feeding 300 ml Output Urine Total 550 ml 700 ml Laboratory Tests 02/23/18 04:00: White Blood Count 9.3, Red Blood Count 3.61L, Hemoglobin 11.5L, Hematocrit 34.7L , Mean Corpuscular Volume 96, Mean Corpuscular Hemoglobin 31.8H, Mean Corpuscular Hemoglobin Concent 33.1, Red Cell Distribution Width 13.5, Platelet Count 266, Mean Platelet Volume 7.8, Neutrophils (%) (Auto) 75.4H, Lymphocytes ( %) (Auto) 13.8L, Monocytes (%) (Auto) 8.7, Eosinophils (%) (Auto) 1.3, Basophils (%) (Auto) 0.9, Sodium Level 140, Potassium Level 3.8, Chloride Level 105, Carbon Dioxide Level 30, Anion Gap 5, Blood Urea Nitrogen 12, Creatinine 0.8, Estimat Glomerular Filtration Rate > 60, Glucose Level 103, Calcium Level 8.8, Pro-B-Type Natriuretic Peptide 1277H Height (Feet): 5 Height (Inches): 5.00 Weight (Pounds): 120 General Appearance: no apparent distress, alert EENT: PERRL/EOMI, pharynx normal Neck: non-tender, supple Cardiovascular: normal rate, regular rhythm, no gallop/murmur, no JVD Respiratory/Chest: chest wall non-tender, normal breath sounds, no respiratory distress Abdomen: non tender, soft, no mass Extremities: non-tender, normal inspection, no calf tenderness Edema: no edema noted Arm (L), no edema noted Arm (R), no edema noted Leg (L), no edema noted Leg (R), no edema noted Pedal (L), no edema noted Pedal (R), no edema noted Generalized Neurologic: alert Skin: rash Lymphatic: normal anterior cervical (L), normal anterior cervical (R), normal posterior cervical (L), normal posterior cervical (R), normal submandibular (L) , normal submandibular (R), normal supraclavicular (L), normal supraclavicular ( R), normal axillary (L), normal axillary (R), normal inguinal (L), normal inguinal (R), normal other Diann Silver MD Feb 23, 2018 23:24
[2018-02-24] VITALS: BP 111/57
[2018-02-24] MEDS: Vancomycin 500 MG in D5W 110 ML IVPB SCH ×2 (00:14→12:46)
[2018-02-24] MEDS: Albuterol/Ipratropium 3ml neb HHN SCH ×6 (02:54→23:02)
[2018-02-24] MEDS: Meropenem 1 GM in NS 55 ML IVPB SCH ×3 (03:10→17:40)
[2018-02-24 04:00] VITALS: BP 98/57
[2018-02-24] MEDS: Heparin 5000 units/ml inj SUBQ SCH ×3 (05:12→21:10)
[2018-02-24] MEDS: NovoLOG Insulin Flexpen SUBQ SCH ×4 (06:30→21:09)
[2018-02-24 08:00] VITALS: BP 103/51
[2018-02-24] MEDS: Metoprolol Tartrate 12.5mg TAB NG SCH ×3 (09:00→21:06)
[2018-02-24] MEDS: Tums 500mg GT SCH ×3 (10:08→17:15)
[2018-02-24] MEDS: levETIRAcetam 500mg/5ml Liquid NG SCH ×2 (10:08→21:07)
[2018-02-24] MEDS: Pantoprazole Inj IVP SCH (10:08)
[2018-02-24] MEDS: Levothyroxine 125mcg tab NG SCH (10:08)
[2018-02-24] MEDS: Docusate 100mg/10ml Liq NG SCH ×2 (10:08→17:15)
[2018-02-24] MEDS: Aspirin Baby 81mg NG SCH (10:09)
[2018-02-24] MEDS: Triamcinolone 0.025% oint TOPIC SCH ×3 (10:10→17:15)
[2018-02-24] MEDS ORDERED: Tubing IV Secondary IV ONE (10:28)
[2018-02-24] MEDS ORDERED: NS 275ml ONE (10:28)
[2018-02-24 12:00] VITALS: BP 100/50
--- NOTE | 2018-02-24 14:09 | Cardiology Progress Note ---
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 Aspiration precautions. NPO, s/p G tube placement Repeat ECHO planned to assess ? congenital heart lesions. Does not appear in CHF. Would not favor diuresis. Subjective ROS Limited/Unobtainable: Yes Subjective Cardiology for Dr. Sue Pt sedated. Objective Last 24 Hour Vital Signs Date Time Temp Pulse Resp B/P (MAP) Pulse Ox O2 Delivery O2 Flow Rate FiO2 02/24/18 11:43 68 20 100 Nasal Cannula 3.0 32 02/24/18 11:30 66 22 94 Nasal Cannula 3.0 32 02/24/18 09:00 Nasal Cannula 4.0 02/24/18 08:00 98.2 70 18 103/51 (68) 95 98.2 02/24/18 07:46 76 20 98 Nasal Cannula 3.0 32 02/24/18 07:39 Nasal Cannula 3.0 32 02/24/18 07:38 98 Nasal Cannula 3.0 32 02/24/18 07:36 76 20 98 Nasal Cannula 3.0 32 02/24/18 05:27 69 17 96 Facial 35 02/24/18 04:00 68 02/24/18 04:00 98.4 75 19 98/57 (71) 97 98.4 02/24/18 03:09 69 24 98 Bi-pap 35 02/24/18 02:54 71 22 98 Bi-pap 35 02/24/18 02:52 71 22 98 Facial 35 02/24/18 00:48 75 23 96 Facial 35 02/24/18 00:00 98.2 76 20 111/57 (75) 99 98.2 02/24/18 00:00 77 02/23/18 23:05 73 23 94 Bi-pap 35 02/23/18 22:50 71 20 93 Bi-pap 35 02/23/18 22:49 70 25 96 Facial 35 02/23/18 21:00 Nasal Cannula 4.0 02/23/18 21:00 101 91/53 02/23/18 20:00 98.8 101 20 91/53 (66) 96 98.8 02/23/18 20:00 81 02/23/18 19:06 83 20 97 Nasal Cannula 3.0 32 02/23/18 18:51 94 Nasal Cannula 3.0 32 02/23/18 18:51 Nasal Cannula 3.0 32 02/23/18 18:51 81 20 94 Nasal Cannula 3.0 32 02/23/18 16:00 81 02/23/18 16:00 97.1 83 20 99/50 (66) 94 97.1 02/23/18 15:13 82 22 99 Nasal Cannula 3.0 32 02/23/18 15:03 78 22 99 Nasal Cannula 3.0 32 General Appearance: other - sedated, no respiratory distress EENT: PERRL/EOMI, other - dry oral mucosa Neck: no JVD Rhythm: NSR Cardiovascular: normal rate, regular rhythm, no gallop/murmur Respiratory/Chest: other - bilateral rhonchi and transmitted upper airway way sounds Abdomen: non tender, soft, other - + gtube Extremities: other - erythematous , scaly patches over R leg > L leg Intake and Output 02/23/18 02/24/18 18:59 06:59 Intake Total 1560 ml 1505 ml Output Total 400 ml 275 ml Balance 1160 ml 1230 ml Free Water 240 ml 90 ml IV Total 710 ml 815 ml Tube Feeding 550 ml 600 ml Other 60 ml Output Urine Total 400 ml 275 ml # Voids 1 Julissa Huerta MD Feb 24, 2018 14:09
--- NOTE | 2018-02-24 14:35 | General Progress Note ---
Assessment/Plan Status: progressing Assessment/Plan ASSESSMENT: 1. Shortness of breath, possibly secondary to pneumonia, possible sepsis. 2. Acute respiratory failure requiring BiPAP. 3. Acute kidney injury. 4. Elevated troponin, possibly from demand ischemia. 5. Developmental delay. 6. Dysphagia. 7. Psoriasis. 8. Acute left cerebellar infarction 9. MRSA bacteremia/Pneumonia/?endocarditis 10. epistaxis, secondary to trauma from NGT and suctioning 11. sepsis/recurrent asspiration pneumonia? 12. Vascular congestion 13. hypokalemia 14. S/P PEG placement on 02-22-18 PLAN: 1. Continue the patient on BiPAP support prn 2. Monitor vitals and I and O's. 3. advance NGT and start diet in cxr confirmed palcement 4. The patient was started on IV vancomycin and Zosyn. 5. To continue breathing treatment with frequent suctioning p.r.n. 6. Continue fdc medications. 7. Monitor troponin. 8. Heparin for DVT prophylaxis. 9. Protonix for GI prophylaxis. 10. Dr. Forrest, Pulmonary consult and Dr. Johnston, ID consult. 11. change aspirin to 81 mg daily 12. fu Echo and carotic us and venous duplex 13 gi consult appreciated, NGT for now repeat swallow eval later when more stable 14. NGT for meds and tube feeding 15. repeat Blood cultures to check for clearance of MRSA conitnue supportive care continue telemetry VQ scan negative for PE monitor labs ENT consult to evaluate for epistaxis, will check am cbc and INR/PTT PICC line placement for IV vanco for 11more days for possible endocarditis and Meropenam fo 4 more days per ID will dc to [facility] when bed available I spoke with Dr. Mckenna from [facility] who agrees to PEG for consent can call [phone] Nini Baltazar director or for Emergency [phone] PICC line placed 02-19-18 right groin line removed 02-19-18, fu cultures now on Vanco and Meopenam s/p iv lasix one dose yesterday with less congestion today echo to be repeated per cardiology tube feedings to be started at midnight NPO by mouth continue IV hydration ok to transfer to [facility] when bed available Subjective Date patient seen: Feb 24, 2018 ROS Limited/Unobtainable: Yes Allergies: Coded Allergies: SULFA (SULFONAMIDE ANTIBIOTICS) (Verified Allergy, Unknown, 09/02/15) Subjective s/p PEG today, saturating 98 % on room air, thinner secretions and nurse consultant suctioning required now Objective Last 24 Hour Vital Signs Date Time Temp Pulse Resp B/P (MAP) Pulse Ox O2 Delivery O2 Flow Rate FiO2 02/24/18 11:43 68 20 100 Nasal Cannula 3.0 32 02/24/18 11:30 66 22 94 Nasal Cannula 3.0 32 02/24/18 09:00 Nasal Cannula 4.0 02/24/18 08:00 98.2 70 18 103/51 (68) 95 98.2 02/24/18 07:46 76 20 98 Nasal Cannula 3.0 32 02/24/18 07:39 Nasal Cannula 3.0 32 02/24/18 07:38 98 Nasal Cannula 3.0 32 02/24/18 07:36 76 20 98 Nasal Cannula 3.0 32 02/24/18 05:27 69 17 96 Facial 35 02/24/18 04:00 68 02/24/18 04:00 98.4 75 19 98/57 (71) 97 98.4 02/24/18 03:09 69 24 98 Bi-pap 35 02/24/18 02:54 71 22 98 Bi-pap 35 02/24/18 02:52 71 22 98 Facial 35 02/24/18 00:48 75 23 96 Facial 35 02/24/18 00:00 98.2 76 20 111/57 (75) 99 98.2 02/24/18 00:00 77 02/23/18 23:05 73 23 94 Bi-pap 35 02/23/18 22:50 71 20 93 Bi-pap 35 02/23/18 22:49 70 25 96 Facial 35 02/23/18 21:00 Nasal Cannula 4.0 02/23/18 21:00 101 91/53 02/23/18 20:00 98.8 101 20 91/53 (66) 96 98.8 02/23/18 20:00 81 02/23/18 19:06 83 20 97 Nasal Cannula 3.0 32 02/23/18 18:51 94 Nasal Cannula 3.0 32 02/23/18 18:51 Nasal Cannula 3.0 32 02/23/18 18:51 81 20 94 Nasal Cannula 3.0 32 02/23/18 16:00 81 02/23/18 16:00 97.1 83 20 99/50 (66) 94 97.1 02/23/18 15:13 82 22 99 Nasal Cannula 3.0 32 02/23/18 15:03 78 22 99 Nasal Cannula 3.0 32 Intake and Output 02/23/18 02/24/18 18:59 06:59 Intake Total 1560 ml 1505 ml Output Total 400 ml 275 ml Balance 1160 ml 1230 ml Free Water 240 ml 90 ml IV Total 710 ml 815 ml Tube Feeding 550 ml 600 ml Other 60 ml Output Urine Total 400 ml 275 ml # Voids 1 Height (Feet): 5 Height (Inches): 5.00 Weight (Pounds): 118 General Appearance: no apparent distress, alert EENT: PERRL/EOMI, pharynx normal Neck: non-tender, supple Cardiovascular: normal rate, regular rhythm, no gallop/murmur, no JVD Respiratory/Chest: chest wall non-tender, normal breath sounds, no respiratory distress Abdomen: non tender, soft, no mass Extremities: non-tender, normal inspection, no calf tenderness Edema: no edema noted Arm (L), no edema noted Arm (R), no edema noted Leg (L), no edema noted Leg (R), no edema noted Pedal (L), no edema noted Pedal (R), no edema noted Generalized Neurologic: responsive Skin: rash Lymphatic: normal anterior cervical (L), normal anterior cervical (R), normal posterior cervical (L), normal posterior cervical (R), normal submandibular (L) , normal submandibular (R), normal supraclavicular (L), normal supraclavicular ( R), normal axillary (L), normal axillary (R), normal inguinal (L), normal inguinal (R), normal other Diann Silver MD Feb 24, 2018 14:34
[2018-02-24 16:00] VITALS: BP 121/48
--- NOTE | 2018-02-24 16:35 | General Progress Note ---
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 Objective Last 24 Hour Vital Signs Date Time Temp Pulse Resp B/P (MAP) Pulse Ox O2 Delivery O2 Flow Rate FiO2 02/24/18 15:36 61 22 99 Nasal Cannula 3.0 32 02/24/18 15:25 63 20 93 Nasal Cannula 3.0 32 02/24/18 12:00 97.9 77 18 100/50 (67) 93 97.9 02/24/18 12:00 67 02/24/18 11:43 68 20 100 Nasal Cannula 3.0 32 02/24/18 11:30 66 22 94 Nasal Cannula 3.0 32 02/24/18 08:00 Nasal Cannula 4.0 02/24/18 08:00 76 02/24/18 08:00 98.2 70 18 103/51 (68) 95 98.2 02/24/18 07:46 76 20 98 Nasal Cannula 3.0 32 02/24/18 07:39 Nasal Cannula 3.0 32 02/24/18 07:38 98 Nasal Cannula 3.0 32 02/24/18 07:36 76 20 98 Nasal Cannula 3.0 32 02/24/18 05:27 69 17 96 Facial 35 02/24/18 04:00 68 02/24/18 04:00 98.4 75 19 98/57 (71) 97 98.4 02/24/18 03:09 69 24 98 Bi-pap 35 02/24/18 02:54 71 22 98 Bi-pap 35 02/24/18 02:52 71 22 98 Facial 35 02/24/18 00:48 75 23 96 Facial 35 02/24/18 00:00 98.2 76 20 111/57 (75) 99 98.2 02/24/18 00:00 77 02/23/18 23:05 73 23 94 Bi-pap 35 02/23/18 22:50 71 20 93 Bi-pap 35 02/23/18 22:49 70 25 96 Facial 35 02/23/18 21:00 Nasal Cannula 4.0 02/23/18 21:00 101 91/53 02/23/18 20:00 98.8 101 20 91/53 (66) 96 98.8 02/23/18 20:00 81 02/23/18 19:06 83 20 97 Nasal Cannula 3.0 32 02/23/18 18:51 94 Nasal Cannula 3.0 32 02/23/18 18:51 Nasal Cannula 3.0 32 02/23/18 18:51 81 20 94 Nasal Cannula 3.0 32 Intake and Output 02/23/18 02/24/18 18:59 06:59 Intake Total 1560 ml 1505 ml Output Total 400 ml 275 ml Balance 1160 ml 1230 ml Free Water 240 ml 90 ml IV Total 710 ml 815 ml Tube Feeding 550 ml 600 ml Other 60 ml Output Urine Total 400 ml 275 ml # Voids 1 Height (Feet): 5 Height (Inches): 5.00 Weight (Pounds): 118 Objective WDWN WM NCAT supple Chest b/l Ronchi RR abd soft ND, (+) PEG no edema OBS Michael Estevez MD Feb 24, 2018 16:35
[2018-02-24 20:00] VITALS: BP 105/56
--- NOTE | 2018-02-24 20:56 | Pulmonology Progress Note ---
Assessment/Plan Assessment/Plan PROBLEM LIST: 1. Respiratory failure 2. Right perihilar infiltrate, healthcare-associated pneumonia. 3. MRSA sepsis and pneumonia 4. Acute kidney injury, likely dehydration. 5. Mild troponin elevation, likely demand ischemia. 6. History of recurrent aspiration pneumonia in the past. 7. Chronic subdural hematoma. 8. Mental retardation. 9. Hypothyroidism. 10. Chronic right bundle-branch block. 11. Acute on chronic CVA 12. Elevated D-dimer with negative Duplex and VQ 13. Dysphagia S/P PEG TREATMENT PLAN: 1. Monitor respiratory status 2. BiPAP PRN and qHS 3. Titrate down FiO2 to keep SaO2 > 90%. 4. RTC and PRN HHN's, CPT 5. Abx per ID, F/U Cx's 6. CXR monday 7. NPO, TF's 8. Monitor volumes 9. Hep SQ for DVT Px Subjective Allergies: Coded Allergies: SULFA (SULFONAMIDE ANTIBIOTICS) (Verified Allergy, Unknown, 09/02/15) Subjective lethargic tolerating TF fever noted CXR iwth CM and CHF on Abx no bleeding poor dentition Objective Last 24 Hour Vital Signs Date Time Temp Pulse Resp B/P (MAP) Pulse Ox O2 Delivery O2 Flow Rate FiO2 02/24/18 20:00 61 02/24/18 20:00 97.9 71 18 105/56 (72) 98 97.9 02/24/18 19:43 83 20 98 Nasal Cannula 3.0 32 02/24/18 19:33 Nasal Cannula 3.0 32 02/24/18 19:33 99 Nasal Cannula 3.0 32 02/24/18 19:33 69 20 99 Nasal Cannula 3.0 32 02/24/18 16:00 64 02/24/18 16:00 97.8 71 18 121/48 (72) 95 97.8 02/24/18 15:36 61 22 99 Nasal Cannula 3.0 32 02/24/18 15:25 63 20 93 Nasal Cannula 3.0 32 02/24/18 12:00 97.9 77 18 100/50 (67) 93 97.9 02/24/18 12:00 67 02/24/18 11:43 68 20 100 Nasal Cannula 3.0 32 02/24/18 11:30 66 22 94 Nasal Cannula 3.0 32 02/24/18 08:00 Nasal Cannula 4.0 02/24/18 08:00 76 02/24/18 08:00 98.2 70 18 103/51 (68) 95 98.2 02/24/18 07:46 76 20 98 Nasal Cannula 3.0 32 02/24/18 07:39 Nasal Cannula 3.0 32 02/24/18 07:38 98 Nasal Cannula 3.0 32 02/24/18 07:36 76 20 98 Nasal Cannula 3.0 32 02/24/18 05:27 69 17 96 Facial 35 02/24/18 04:00 68 02/24/18 04:00 98.4 75 19 98/57 (71) 97 98.4 02/24/18 03:09 69 24 98 Bi-pap 35 02/24/18 02:54 71 22 98 Bi-pap 35 02/24/18 02:52 71 22 98 Facial 35 02/24/18 00:48 75 23 96 Facial 35 02/24/18 00:00 98.2 76 20 111/57 (75) 99 98.2 02/24/18 00:00 77 02/23/18 23:05 73 23 94 Bi-pap 35 02/23/18 22:50 71 20 93 Bi-pap 35 02/23/18 22:49 70 25 96 Facial 35 02/23/18 21:00 Nasal Cannula 4.0 02/23/18 21:00 101 91/53 Intake and Output 02/23/18 02/24/18 18:59 06:59 Intake Total 1560 ml 1505 ml Output Total 400 ml 275 ml Balance 1160 ml 1230 ml Free Water 240 ml 90 ml IV Total 710 ml 815 ml Tube Feeding 550 ml 600 ml Other 60 ml Output Urine Total 400 ml 275 ml # Voids 1 General Appearance: cachetic HEENT: normocephalic Respiratory/Chest: crackles/rales, rhonchi Cardiovascular: normal rate, regular rhythm, edema Abdomen: soft, non tender, no organomegaly 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: disoriented, unresponsiveness Musculoskeletal: normal muscle bulk Current Medications Medications (Trade) Dose Ordered Sig/Eddy Route PRN Reason Start Time Stop Time Status Last Admin Dose Admin Acetaminophen (Tylenol) 650 mg Q6H PRN NG Mild Pain/Temp > 100.5 02/11/18 18:18 03/12/18 18:17 02/19/18 03:50 Acetylcysteine (Mucomyst) 100 mg Q4HRT N 02/21/18 19:00 03/23/18 18:59 02/24/18 19:34 Albuterol/ Ipratropium (Albuterol/ Ipratropium) 3 ml Q4HRT N 02/23/18 11:00 02/28/18 10:59 02/24/18 19:33 Aspirin (ASA) 81 mg DAILY NG 02/12/18 09:00 03/14/18 08:59 02/24/18 10:09 Atorvastatin Calcium (Lipitor) 10 mg BEDTIME NG 02/11/18 21:00 03/09/18 20:59 02/23/18 20:58 Calcium Carbonate (Tums) 500 mg THREE TIMES A DAY GT 02/12/18 09:00 03/09/18 08:59 02/24/18 17:15 Chlorhexidine Gluconate (Tesha-Hex 2%) 1 applic DAILY@2000 TOPIC 02/19/18 20:00 03/21/18 19:59 02/23/18 20:57 Dextrose (Dextrose 50%) 25 ml Q30M PRN IV Hypoglycemia 02/22/18 16:15 03/24/18 16:14 Docusate Sodium (Colace) 100 mg TWICE A DAY NG 02/12/18 09:00 03/13/18 08:59 02/24/18 17:15 Guaifenesin (Robitussin) 100 mg Q4H PRN NG For Cough 02/13/18 13:45 03/14/18 18:14 Heparin Sodium (Porcine) (Heparin 5000 units/ml) 5,000 units EVERY 8 HOURS SUBQ 02/23/18 14:00 03/25/18 13:59 02/24/18 12:59 Insulin Aspart (NovoLOG) BEFORE MEALS AND HS SUBQ 02/22/18 16:30 03/24/18 16:29 02/24/18 17:12 Lansoprazole (Prevacid) 30 mg DAILY NG 02/25/18 09:00 03/27/18 08:59 Levetiracetam (Keppra) 1,000 mg Q12HR NG 02/16/18 21:00 03/18/18 20:59 02/24/18 10:08 Levothyroxine Sodium (Synthroid) 125 mcg DAILY NG 02/17/18 09:00 03/19/18 08:59 02/24/18 10:08 Magnesium Hydroxide (Mom) 30 ml HSPRN PRN NG Constipation 02/11/18 21:00 03/09/18 20:59 Meropenem 1 gm/ Sodium Chloride 55 ml @ 110 mls/hr Q8H IVPB 02/18/18 11:00 02/27/18 10:59 02/24/18 17:40 Metoprolol Tartrate (Lopressor) 5 mg Q4H PRN IVP hr>130 02/11/18 18:19 03/09/18 18:18 Metoprolol Tartrate (Lopressor) 12.5 mg Q12HR NG 02/11/18 21:00 03/09/18 08:59 02/23/18 21:00 Olanzapine (ZyPREXA) 5 mg DAILY@2100 NG 02/11/18 21:00 03/12/18 20:59 02/23/18 21:00 Sodium Chloride 1,000 ml @ 50 mls/hr Q20H IV 02/22/18 12:00 03/24/18 11:59 02/24/18 04:11 Triamcinolone Acetonide (Kenalog 0.025% Oint) 1 applic THREE TIMES A DAY TOPIC 02/14/18 18:00 03/16/18 17:59 02/24/18 17:15 Vancomycin HCl (Vanco rx to dose) 1 ea DAILY PRN MISC PER PHARMACY 02/12/18 09:00 03/09/18 07:29 Vancomycin HCl 500 mg/Dextrose 110 ml @ 110 mls/hr Q12HR@0100,1300 IVPB 02/22/18 13:00 02/27/18 12:59 02/24/18 12:46 Emelia Hernandez DO Feb 24, 2018 20:56
[2018-02-24] MEDS: Dyna-Hex 2% Top Sol 2oz TOPIC SCH (21:07)
[2018-02-25] VITALS: BP 100/52
[2018-02-25] MEDS: Vancomycin 500 MG in D5W 110 ML IVPB SCH ×2 (00:03→12:16)
[2018-02-25] MEDS: Meropenem 1 GM in NS 55 ML IVPB SCH ×3 (02:48→17:33)
[2018-02-25] MEDS: Albuterol/Ipratropium 3ml neb HHN SCH ×6 (03:15→23:18)
[2018-02-25 04:00] VITALS: BP 138/68
[2018-02-25] MEDS: Heparin 5000 units/ml inj SUBQ SCH ×3 (05:14→21:00)
[2018-02-25] MEDS: NovoLOG Insulin Flexpen SUBQ SCH ×4 (06:30→20:33)
[2018-02-25 08:00] VITALS: BP 99/56
[2018-02-25] MEDS: Metoprolol Tartrate 12.5mg TAB NG SCH ×2 (09:00→21:00)
[2018-02-25] MEDS: Levothyroxine 125mcg tab NG SCH (09:36)
[2018-02-25] MEDS: Tums 500mg GT SCH ×3 (09:36→17:24)
[2018-02-25] MEDS: Aspirin Baby 81mg NG SCH (09:36)
[2018-02-25] MEDS: Docusate 100mg/10ml Liq NG SCH ×2 (09:36→17:25)
[2018-02-25] MEDS: levETIRAcetam 500mg/5ml Liquid NG SCH ×2 (09:36→20:31)
[2018-02-25] MEDS: Triamcinolone 0.025% oint TOPIC SCH ×3 (09:37→17:25)
--- NOTE | 2018-02-25 10:35 | Pulmonology Progress Note ---
Assessment/Plan Assessment/Plan PROBLEM LIST: 1. Respiratory failure 2. Right perihilar infiltrate, healthcare-associated pneumonia. 3. MRSA sepsis and pneumonia 4. Acute kidney injury, likely dehydration. 5. Mild troponin elevation, likely demand ischemia. 6. History of recurrent aspiration pneumonia in the past. 7. Chronic subdural hematoma. 8. Mental retardation. 9. Hypothyroidism. 10. Chronic right bundle-branch block. 11. Acute on chronic CVA 12. Elevated D-dimer with negative Duplex and VQ 13. Dysphagia S/P PEG TREATMENT PLAN: 1. Monitor respiratory status 2. BiPAP PRN and qHS 3. Titrate down FiO2 to keep SaO2 > 90%. 4. RTC and PRN HHN's, CPT 5. Abx per ID, F/U Cx's 6. CXR monday 7. NPO, TF's 8. Monitor volumes 9. Hep SQ for DVT Px 10 check am labs Subjective ROS Limited/Unobtainable: Yes Allergies: Coded Allergies: SULFA (SULFONAMIDE ANTIBIOTICS) (Verified Allergy, Unknown, 09/02/15) Subjective more awake today nonverbal tolerating TF cough moist as well no fever noted CXR with CM and CHF on Abx no bleeding poor dentition Objective Last 24 Hour Vital Signs Date Time Temp Pulse Resp B/P (MAP) Pulse Ox O2 Delivery O2 Flow Rate FiO2 02/25/18 09:00 Nasal Cannula 4.0 02/25/18 08:00 96.4 73 20 99/56 (70) 99 96.4 02/25/18 07:05 68 20 99 Nasal Cannula 3.0 32 02/25/18 06:54 68 20 98 Nasal Cannula 3.0 32 02/25/18 06:53 Nasal Cannula 3.0 32 02/25/18 06:52 98 Nasal Cannula 3.0 32 02/25/18 05:10 67 18 98 02/25/18 05:08 66 21 99 Facial 35 02/25/18 04:00 68 02/25/18 04:00 97.7 71 20 138/68 (91) 100 97.7 02/25/18 03:25 67 20 100 Bi-pap 35 02/25/18 03:15 67 18 98 Bi-pap 35 02/25/18 02:49 68 21 98 Facial 35 02/25/18 01:31 63 20 99 Facial 35 02/25/18 00:00 62 02/25/18 00:00 97.0 65 20 100/52 (68) 100 97.0 02/24/18 23:15 87 20 99 Bi-pap 35 02/24/18 23:02 86 20 97 Bi-pap 35 02/24/18 23:02 86 20 97 Facial 35 02/24/18 21:06 61 105/56 02/24/18 21:00 Nasal Cannula 4.0 02/24/18 20:00 61 02/24/18 20:00 97.9 71 18 105/56 (72) 98 97.9 02/24/18 19:43 83 20 98 Nasal Cannula 3.0 32 02/24/18 19:33 Nasal Cannula 3.0 32 02/24/18 19:33 99 Nasal Cannula 3.0 32 02/24/18 19:33 69 20 99 Nasal Cannula 3.0 32 02/24/18 16:00 64 02/24/18 16:00 97.8 71 18 121/48 (72) 95 97.8 02/24/18 15:36 61 22 99 Nasal Cannula 3.0 32 02/24/18 15:25 63 20 93 Nasal Cannula 3.0 32 02/24/18 12:00 97.9 77 18 100/50 (67) 93 97.9 02/24/18 12:00 67 02/24/18 11:43 68 20 100 Nasal Cannula 3.0 32 02/24/18 11:30 66 22 94 Nasal Cannula 3.0 32 Intake and Output 02/24/18 02/25/18 19:00 07:00 Intake Total 130 ml 1315 ml Output Total 1000 ml 1300 ml Balance -870 ml 15 ml Free Water 30 ml 60 ml IV Total 50 ml 705 ml Tube Feeding 50 ml 550 ml Output Urine Total 1000 ml 1300 ml # Voids 1 General Appearance: cachetic HEENT: atraumatic, anicteric Respiratory/Chest: rhonchi Cardiovascular: normal rate, regular rhythm Abdomen: no organomegaly, distended Extremities: no cyanosis, no clubbing 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: disoriented Current Medications Medications (Trade) Dose Ordered Sig/Eddy Route PRN Reason Start Time Stop Time Status Last Admin Dose Admin Acetaminophen (Tylenol) 650 mg Q6H PRN NG Mild Pain/Temp > 100.5 02/11/18 18:18 03/12/18 18:17 02/19/18 03:50 Acetylcysteine (Mucomyst) 100 mg Q4HRT N 02/21/18 19:00 03/23/18 18:59 02/25/18 06:53 Albuterol/ Ipratropium (Albuterol/ Ipratropium) 3 ml Q4HRT N 02/23/18 11:00 02/28/18 10:59 02/25/18 06:53 Aspirin (ASA) 81 mg DAILY NG 02/12/18 09:00 03/14/18 08:59 02/25/18 09:36 Atorvastatin Calcium (Lipitor) 10 mg BEDTIME NG 02/11/18 21:00 03/09/18 20:59 02/24/18 21:06 Calcium Carbonate (Tums) 500 mg THREE TIMES A DAY GT 02/12/18 09:00 03/09/18 08:59 02/25/18 09:36 Chlorhexidine Gluconate (Tesha-Hex 2%) 1 applic DAILY@2000 TOPIC 02/19/18 20:00 03/21/18 19:59 02/24/18 21:07 Dextrose (Dextrose 50%) 25 ml Q30M PRN IV Hypoglycemia 02/22/18 16:15 03/24/18 16:14 Docusate Sodium (Colace) 100 mg TWICE A DAY NG 02/12/18 09:00 03/13/18 08:59 02/25/18 09:36 Guaifenesin (Robitussin) 100 mg Q4H PRN NG For Cough 02/13/18 13:45 03/14/18 18:14 Heparin Sodium (Porcine) (Heparin 5000 units/ml) 5,000 units EVERY 8 HOURS SUBQ 02/23/18 14:00 03/25/18 13:59 02/25/18 05:14 Insulin Aspart (NovoLOG) BEFORE MEALS AND HS SUBQ 02/22/18 16:30 03/24/18 16:29 02/24/18 21:09 Lansoprazole (Prevacid) 30 mg DAILY NG 02/25/18 09:00 03/27/18 08:59 02/25/18 09:36 Levetiracetam (Keppra) 1,000 mg Q12HR NG 02/16/18 21:00 03/18/18 20:59 02/25/18 09:36 Levothyroxine Sodium (Synthroid) 125 mcg DAILY NG 02/17/18 09:00 03/19/18 08:59 02/25/18 09:36 Magnesium Hydroxide (Mom) 30 ml HSPRN PRN NG Constipation 02/11/18 21:00 03/09/18 20:59 Meropenem 1 gm/ Sodium Chloride 55 ml @ 110 mls/hr Q8H IVPB 02/18/18 11:00 02/27/18 10:59 02/25/18 09:53 Metoprolol Tartrate (Lopressor) 5 mg Q4H PRN IVP hr>130 02/11/18 18:19 03/09/18 18:18 Metoprolol Tartrate (Lopressor) 12.5 mg Q12HR NG 02/11/18 21:00 03/09/18 08:59 02/24/18 21:06 Olanzapine (ZyPREXA) 5 mg DAILY@2100 NG 02/11/18 21:00 03/12/18 20:59 02/24/18 21:06 Sodium Chloride 1,000 ml @ 50 mls/hr Q20H IV 02/22/18 12:00 03/24/18 11:59 02/25/18 00:03 Triamcinolone Acetonide (Kenalog 0.025% Oint) 1 applic THREE TIMES A DAY TOPIC 02/14/18 18:00 03/16/18 17:59 02/25/18 09:37 Vancomycin HCl (Vanco rx to dose) 1 ea DAILY PRN MISC PER PHARMACY 02/12/18 09:00 03/09/18 07:29 Vancomycin HCl 500 mg/Dextrose 110 ml @ 110 mls/hr Q12HR@0100,1300 IVPB 02/22/18 13:00 02/27/18 12:59 02/25/18 00:03 Emelia Hernandez DO Feb 25, 2018 10:35
--- NOTE | 2018-02-25 11:26 | Infectious Diseases Prog Note ---
Assessment/Plan Assessment/Plan A: 1. pneumonia with MRSA & E. coli 2. respiratory failure 3. Acute lacunar CVA 4. mental retardation 5. staph aureus sepsis r/o endocarditis 6. New sepsis with fever, leukocytosis & Tachycardia 7. Dysphagia s/p GT P 1. continue vancomycin iv, X 9 days 2. Continue Meropenem X 2 days Subjective ROS Limited/Unobtainable: Yes Allergies: Coded Allergies: SULFA (SULFONAMIDE ANTIBIOTICS) (Verified Allergy, Unknown, 09/02/15) Objective Vital Signs Last 24 Hour Vital Signs Date Time Temp Pulse Resp B/P (MAP) Pulse Ox O2 Delivery O2 Flow Rate FiO2 02/25/18 11:17 74 20 95 Nasal Cannula 3.0 32 02/25/18 11:09 79 20 94 Nasal Cannula 3.0 32 02/25/18 09:00 Nasal Cannula 4.0 02/25/18 08:00 96.4 73 20 99/56 (70) 99 96.4 02/25/18 07:05 68 20 99 Nasal Cannula 3.0 32 02/25/18 06:54 68 20 98 Nasal Cannula 3.0 32 02/25/18 06:53 Nasal Cannula 3.0 32 02/25/18 06:52 98 Nasal Cannula 3.0 32 02/25/18 05:10 67 18 98 02/25/18 05:08 66 21 99 Facial 35 02/25/18 04:00 68 02/25/18 04:00 97.7 71 20 138/68 (91) 100 97.7 02/25/18 03:25 67 20 100 Bi-pap 35 02/25/18 03:15 67 18 98 Bi-pap 35 02/25/18 02:49 68 21 98 Facial 35 02/25/18 01:31 63 20 99 Facial 35 02/25/18 00:00 62 02/25/18 00:00 97.0 65 20 100/52 (68) 100 97.0 02/24/18 23:15 87 20 99 Bi-pap 35 02/24/18 23:02 86 20 97 Bi-pap 35 02/24/18 23:02 86 20 97 Facial 35 02/24/18 21:06 61 105/56 02/24/18 21:00 Nasal Cannula 4.0 02/24/18 20:00 61 02/24/18 20:00 97.9 71 18 105/56 (72) 98 97.9 02/24/18 19:43 83 20 98 Nasal Cannula 3.0 32 02/24/18 19:33 Nasal Cannula 3.0 32 02/24/18 19:33 99 Nasal Cannula 3.0 32 02/24/18 19:33 69 20 99 Nasal Cannula 3.0 32 02/24/18 16:00 64 02/24/18 16:00 97.8 71 18 121/48 (72) 95 97.8 02/24/18 15:36 61 22 99 Nasal Cannula 3.0 32 02/24/18 15:25 63 20 93 Nasal Cannula 3.0 32 02/24/18 12:00 97.9 77 18 100/50 (67) 93 97.9 02/24/18 12:00 67 02/24/18 11:43 68 20 100 Nasal Cannula 3.0 32 02/24/18 11:30 66 22 94 Nasal Cannula 3.0 32 Height (Feet): 5 Height (Inches): 5.00 Weight (Pounds): 121 General Appearance: no acute distress HEENT: mucous membranes moist Respiratory/Chest: rhonchi - bilaterally, other - oxygen by nasal cannula Abdomen: soft, non tender, other - GT feeding Extremities: no edema 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: aphasia Current Medications Medications (Trade) Dose Ordered Sig/Eddy Route PRN Reason Start Time Stop Time Status Last Admin Dose Admin Acetaminophen (Tylenol) 650 mg Q6H PRN NG Mild Pain/Temp > 100.5 02/11/18 18:18 03/12/18 18:17 02/19/18 03:50 Acetylcysteine (Mucomyst) 100 mg Q4HRT [facility] 02/21/18 19:00 03/23/18 18:59 02/25/18 11:08 Albuterol/ Ipratropium (Albuterol/ Ipratropium) 3 ml Q4HRT [facility] 02/23/18 11:00 02/28/18 10:59 02/25/18 11:09 Aspirin (ASA) 81 mg DAILY NG 02/12/18 09:00 03/14/18 08:59 02/25/18 09:36 Atorvastatin Calcium (Lipitor) 10 mg BEDTIME NG 02/11/18 21:00 03/09/18 20:59 02/24/18 21:06 Calcium Carbonate (Tums) 500 mg THREE TIMES A DAY GT 02/12/18 09:00 03/09/18 08:59 02/25/18 09:36 Chlorhexidine Gluconate (Tesha-Hex 2%) 1 applic DAILY@2000 TOPIC 02/19/18 20:00 03/21/18 19:59 02/24/18 21:07 Dextrose (Dextrose 50%) 25 ml Q30M PRN IV Hypoglycemia 02/22/18 16:15 03/24/18 16:14 Docusate Sodium (Colace) 100 mg TWICE A DAY NG 02/12/18 09:00 03/13/18 08:59 02/25/18 09:36 Guaifenesin (Robitussin) 100 mg Q4H PRN NG For Cough 02/13/18 13:45 03/14/18 18:14 Heparin Sodium (Porcine) (Heparin 5000 units/ml) 5,000 units EVERY 8 HOURS SUBQ 02/23/18 14:00 03/25/18 13:59 02/25/18 05:14 Insulin Aspart (NovoLOG) BEFORE MEALS AND HS SUBQ 02/22/18 16:30 03/24/18 16:29 02/24/18 21:09 Lansoprazole (Prevacid) 30 mg DAILY NG 02/25/18 09:00 03/27/18 08:59 02/25/18 09:36 Levetiracetam (Keppra) 1,000 mg Q12HR NG 02/16/18 21:00 03/18/18 20:59 02/25/18 09:36 Levothyroxine Sodium (Synthroid) 125 mcg DAILY NG 02/17/18 09:00 03/19/18 08:59 02/25/18 09:36 Magnesium Hydroxide (Mom) 30 ml HSPRN PRN NG Constipation 02/11/18 21:00 03/09/18 20:59 Meropenem 1 gm/ Sodium Chloride 55 ml @ 110 mls/hr Q8H IVPB 02/18/18 11:00 02/27/18 10:59 02/25/18 09:53 Metoprolol Tartrate (Lopressor) 5 mg Q4H PRN IVP hr>130 02/11/18 18:19 03/09/18 18:18 Metoprolol Tartrate (Lopressor) 12.5 mg Q12HR NG 02/11/18 21:00 03/09/18 08:59 02/24/18 21:06 Olanzapine (ZyPREXA) 5 mg DAILY@2100 NG 02/11/18 21:00 03/12/18 20:59 02/24/18 21:06 Sodium Chloride 1,000 ml @ 50 mls/hr Q20H IV 02/22/18 12:00 03/24/18 11:59 02/25/18 00:03 Triamcinolone Acetonide (Kenalog 0.025% Oint) 1 applic THREE TIMES A DAY TOPIC 02/14/18 18:00 03/16/18 17:59 02/25/18 09:37 Vancomycin HCl (Vanco rx to dose) 1 ea DAILY PRN MISC PER PHARMACY 02/12/18 09:00 03/09/18 07:29 Vancomycin HCl 500 mg/Dextrose 110 ml @ 110 mls/hr Q12HR@0100,1300 IVPB 02/22/18 13:00 02/27/18 12:59 02/25/18 00:03 Wilbur Escudero MD Feb 25, 2018 11:26
[2018-02-25 12:00] VITALS: BP 110/51
--- NOTE | 2018-02-25 14:09 | General Progress Note ---
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 - mild hypnatremia - etiology - pneumonitis - failed swallow - s/p PEG - h/o CHF - Fever and Leukocytosis - resolved Recommendations - Continue TF / advance - free water restriction - Abx - optimize pulmonary parameters - d/c planning Subjective Allergies: Coded Allergies: SULFA (SULFONAMIDE ANTIBIOTICS) (Verified Allergy, Unknown, 09/02/15) Subjective tolerating TF NAD comfortable d/w icu staff nurse Objective Last 24 Hour Vital Signs Date Time Temp Pulse Resp B/P (MAP) Pulse Ox O2 Delivery O2 Flow Rate FiO2 02/25/18 12:00 72 02/25/18 12:00 97.9 76 20 110/51 (70) 92 97.9 02/25/18 11:17 74 20 95 Nasal Cannula 3.0 32 02/25/18 11:09 79 20 94 Nasal Cannula 3.0 32 02/25/18 09:00 Nasal Cannula 4.0 02/25/18 08:00 73 02/25/18 08:00 96.4 73 20 99/56 (70) 99 96.4 02/25/18 07:05 68 20 99 Nasal Cannula 3.0 32 02/25/18 06:54 68 20 98 Nasal Cannula 3.0 32 02/25/18 06:53 Nasal Cannula 3.0 32 02/25/18 06:52 98 Nasal Cannula 3.0 32 02/25/18 05:10 67 18 98 02/25/18 05:08 66 21 99 Facial 35 02/25/18 04:00 68 02/25/18 04:00 97.7 71 20 138/68 (91) 100 97.7 02/25/18 03:25 67 20 100 Bi-pap 35 02/25/18 03:15 67 18 98 Bi-pap 35 02/25/18 02:49 68 21 98 Facial 35 02/25/18 01:31 63 20 99 Facial 35 02/25/18 00:00 62 02/25/18 00:00 97.0 65 20 100/52 (68) 100 97.0 02/24/18 23:15 87 20 99 Bi-pap 35 02/24/18 23:02 86 20 97 Bi-pap 35 02/24/18 23:02 86 20 97 Facial 35 02/24/18 21:06 61 105/56 02/24/18 21:00 Nasal Cannula 4.0 02/24/18 20:00 61 02/24/18 20:00 97.9 71 18 105/56 (72) 98 97.9 02/24/18 19:43 83 20 98 Nasal Cannula 3.0 32 02/24/18 19:33 Nasal Cannula 3.0 32 02/24/18 19:33 99 Nasal Cannula 3.0 32 02/24/18 19:33 69 20 99 Nasal Cannula 3.0 32 02/24/18 16:00 64 02/24/18 16:00 97.8 71 18 121/48 (72) 95 97.8 02/24/18 15:36 61 22 99 Nasal Cannula 3.0 32 02/24/18 15:25 63 20 93 Nasal Cannula 3.0 32 Intake and Output 02/24/18 02/25/18 19:00 07:00 Intake Total 130 ml 1315 ml Output Total 1000 ml 1300 ml Balance -870 ml 15 ml Free Water 30 ml 60 ml IV Total 50 ml 705 ml Tube Feeding 50 ml 550 ml Output Urine Total 1000 ml 1300 ml # Voids 1 Height (Feet): 5 Height (Inches): 5.00 Weight (Pounds): 121 Objective WDWN WM NCAT supple Chest b/l Ronchi RR abd soft ND, (+) PEG no edema OBS Michael Estevez MD Feb 25, 2018 14:09
--- NOTE | 2018-02-25 14:39 | Cardiology Progress Note ---
Assessment/Plan Status: stable, unchanged Status Narrative Down's syndrome possible Av canal defect pneumonia, aspiration, On iv antibiotics. remains w/ significant pulm congestion s/p g tube - tolerating TF Assessment/Plan Complete iv antibiotics course per primary team. Aspiration precautions. NPO, s/p G tube placement Repeat ECHO planned to assess ? congenital heart disease - AV canal defect. Can defer until respiratory status improves Subjective ROS Limited/Unobtainable: Yes Subjective Cardiology for Dr. Sue Pt alert, nonverbal. Objective Last 24 Hour Vital Signs Date Time Temp Pulse Resp B/P (MAP) Pulse Ox O2 Delivery O2 Flow Rate FiO2 02/25/18 12:00 72 02/25/18 12:00 97.9 76 20 110/51 (70) 92 97.9 02/25/18 11:17 74 20 95 Nasal Cannula 3.0 32 02/25/18 11:09 79 20 94 Nasal Cannula 3.0 32 02/25/18 09:00 Nasal Cannula 4.0 02/25/18 08:00 73 02/25/18 08:00 96.4 73 20 99/56 (70) 99 96.4 02/25/18 07:05 68 20 99 Nasal Cannula 3.0 32 02/25/18 06:54 68 20 98 Nasal Cannula 3.0 32 02/25/18 06:53 Nasal Cannula 3.0 32 02/25/18 06:52 98 Nasal Cannula 3.0 32 02/25/18 05:10 67 18 98 02/25/18 05:08 66 21 99 Facial 35 02/25/18 04:00 68 02/25/18 04:00 97.7 71 20 138/68 (91) 100 97.7 02/25/18 03:25 67 20 100 Bi-pap 35 02/25/18 03:15 67 18 98 Bi-pap 35 02/25/18 02:49 68 21 98 Facial 35 02/25/18 01:31 63 20 99 Facial 35 02/25/18 00:00 62 02/25/18 00:00 97.0 65 20 100/52 (68) 100 97.0 02/24/18 23:15 87 20 99 Bi-pap 35 02/24/18 23:02 86 20 97 Bi-pap 35 02/24/18 23:02 86 20 97 Facial 35 10/20/18 21:06 61 105/56 10/20/18 21:00 Nasal Cannula 4.0 02/24/18 20:00 61 02/24/18 20:00 97.9 71 18 105/56 (72) 98 97.9 02/24/18 19:43 83 20 98 Nasal Cannula 3.0 32 02/24/18 19:33 Nasal Cannula 3.0 32 02/24/18 19:33 99 Nasal Cannula 3.0 32 02/24/18 19:33 69 20 99 Nasal Cannula 3.0 32 02/24/18 16:00 64 02/24/18 16:00 97.8 71 18 121/48 (72) 95 97.8 02/24/18 15:36 61 22 99 Nasal Cannula 3.0 32 02/24/18 15:25 63 20 93 Nasal Cannula 3.0 32 General Appearance: WD/WN, alert EENT: PERRL/EOMI Neck: no JVD Rhythm: NSR Cardiovascular: normal peripheral pulses, normal rate, regular rhythm Respiratory/Chest: rhonchi - bilaterally Abdomen: non tender, soft, other - + gtube Extremities: no swelling Intake and Output 02/24/18 02/25/18 19:00 07:00 Intake Total 130 ml 1315 ml Output Total 1000 ml 1300 ml Balance -870 ml 15 ml Free Water 30 ml 60 ml IV Total 50 ml 705 ml Tube Feeding 50 ml 550 ml Output Urine Total 1000 ml 1300 ml # Voids 1 Julissa Huerta MD Feb 25, 2018 14:39
[2018-02-25 16:00] VITALS: BP 94/68
[2018-02-25 20:00] VITALS: BP 91/40
[2018-02-25] MEDS: Dyna-Hex 2% Top Sol 2oz TOPIC SCH (20:31)
--- NOTE | 2018-02-25 23:54 | General Progress Note ---
Assessment/Plan Status: progressing Assessment/Plan ASSESSMENT: 1. Shortness of breath, possibly secondary to pneumonia, possible sepsis. 2. Acute respiratory failure requiring BiPAP. 3. Acute kidney injury. 4. Elevated troponin, possibly from demand ischemia. 5. Developmental delay. 6. Dysphagia. 7. Psoriasis. 8. Acute left cerebellar infarction 9. MRSA bacteremia/Pneumonia/?endocarditis 10. epistaxis, secondary to trauma from NGT and suctioning 11. sepsis/recurrent asspiration pneumonia? 12. Vascular congestion 13. hypokalemia 14. S/P PEG placement on 02-22-18 PLAN: 1. Continue the patient on BiPAP support prn 2. Monitor vitals and I and O's. 3. advance NGT and start diet in cxr confirmed palcement 4. The patient was started on IV vancomycin and Zosyn. 5. To continue breathing treatment with frequent suctioning p.r.n. 6. Continue penitentiary medications. 7. Monitor troponin. 8. Heparin for DVT prophylaxis. 9. Protonix for GI prophylaxis. 10. Dr. Forrest, Pulmonary consult and Dr. Johnston, ID consult. 11. change aspirin to 81 mg daily 12. fu Echo and carotic us and venous duplex 13 gi consult appreciated, NGT for now repeat swallow eval later when more stable 14. NGT for meds and tube feeding 15. repeat Blood cultures to check for clearance of MRSA conitnue supportive care continue telemetry VQ scan negative for PE monitor labs ENT consult to evaluate for epistaxis, will check am cbc and INR/PTT PICC line placement for IV vanco for 11more days for possible endocarditis and Meropenam fo 4 more days per ID will dc to [facility] when bed available I spoke with Dr. Mckenna from [facility] who agrees to PEG for consent can call [phone] Nini Baltazar director or for Emergency [phone] PICC line placed 02-19-18 right groin line removed 02-19-18, fu cultures now on Vanco and Meopenam s/p iv lasix one dose yesterday with less congestion today echo to be repeated per cardiology tube feedings to be started at midnight am labs NPO by mouth continue IV hydration ok to transfer to [facility] when bed available Subjective Date patient seen: Feb 25, 2018 ROS Limited/Unobtainable: Yes Allergies: Coded Allergies: SULFA (SULFONAMIDE ANTIBIOTICS) (Verified Allergy, Unknown, 09/02/15) Subjective s/p PEG today, saturating 98 % on room air, thinner secretions and state archivist suctioning required now Objective Last 24 Hour Vital Signs Date Time Temp Pulse Resp B/P (MAP) Pulse Ox O2 Delivery O2 Flow Rate FiO2 02/25/18 23:32 64 20 99 Nasal Cannula 3.0 32 02/25/18 23:31 62 16 99 Facial 35 02/25/18 23:16 61 20 99 Nasal Cannula 3.0 32 02/25/18 21:00 67 91/44 02/25/18 20:00 97.8 69 22 91/40 (57) 100 97.8 02/25/18 20:00 87 02/25/18 19:57 Nasal Cannula 4.0 02/25/18 19:25 67 20 99 Nasal Cannula 3.0 32 02/25/18 19:13 Nasal Cannula 3.0 32 02/25/18 19:13 62 20 99 Nasal Cannula 3.0 32 02/25/18 19:12 99 Nasal Cannula 3.0 32 02/25/18 16:00 98.2 83 18 94/68 (77) 99 98.2 02/25/18 16:00 85 02/25/18 15:32 73 20 95 Nasal Cannula 3.0 32 02/25/18 15:11 76 20 95 Nasal Cannula 3.0 32 02/25/18 12:00 72 02/25/18 12:00 97.9 76 20 110/51 (70) 92 97.9 02/25/18 11:17 74 20 95 Nasal Cannula 3.0 32 02/25/18 11:09 79 20 94 Nasal Cannula 3.0 32 02/25/18 09:00 Nasal Cannula 4.0 02/25/18 08:00 73 02/25/18 08:00 96.4 73 20 99/56 (70) 99 96.4 02/25/18 07:05 68 20 99 Nasal Cannula 3.0 32 02/25/18 06:54 68 20 98 Nasal Cannula 3.0 32 02/25/18 06:53 Nasal Cannula 3.0 32 02/25/18 06:52 98 Nasal Cannula 3.0 32 02/25/18 05:10 67 18 98 02/25/18 05:08 66 21 99 Facial 35 02/25/18 04:00 68 02/25/18 04:00 97.7 71 20 138/68 (91) 100 97.7 02/25/18 03:25 67 20 100 Bi-pap 35 02/25/18 03:15 67 18 98 Bi-pap 35 02/25/18 02:49 68 21 98 Facial 35 02/25/18 01:31 63 20 99 Facial 35 02/25/18 00:00 62 02/25/18 00:00 97.0 65 20 100/52 (68) 100 97.0 Intake and Output 02/24/18 02/25/18 18:59 06:59 Intake Total 1445 ml Output Total 1000 ml 1300 ml Balance -1000 ml 145 ml Free Water 90 ml IV Total 755 ml Tube Feeding 600 ml Output Urine Total 1000 ml 1300 ml # Voids 1 Height (Feet): 5 Height (Inches): 5.00 Weight (Pounds): 121 General Appearance: alert EENT: PERRL/EOMI, pharynx normal Neck: non-tender, supple Cardiovascular: normal rate, regular rhythm, no gallop/murmur, no JVD Respiratory/Chest: rhonchi - bilaterally Abdomen: non tender, soft, no mass Extremities: non-tender, normal inspection, no calf tenderness Edema: no edema noted Arm (L), no edema noted Arm (R), no edema noted Leg (L), no edema noted Leg (R), no edema noted Pedal (L), no edema noted Pedal (R), no edema noted Generalized Neurologic: wealth management director II-XII grossly normal, oriented x 3, responsive Lymphatic: normal anterior cervical (L), normal anterior cervical (R), normal posterior cervical (L), normal posterior cervical (R), normal submandibular (L) , normal submandibular (R), normal supraclavicular (L), normal supraclavicular ( R), normal axillary (L), normal axillary (R), normal inguinal (L), normal inguinal (R), normal other Diann Silver MD Feb 25, 2018 23:54
[2018-02-26] VITALS (7 sets, daily range): BP systolic 86–121; BP diastolic 50–67
[2018-02-26] MEDS: Vancomycin 500 MG in D5W 110 ML IVPB SCH ×2 (00:35→13:59)
[2018-02-26] MEDS: Meropenem 1 GM in NS 55 ML IVPB SCH ×3 (02:28→17:34)
[2018-02-26] MEDS: Albuterol/Ipratropium 3ml neb HHN SCH ×6 (03:21→23:02)
[2018-02-26] MEDS: Heparin 5000 units/ml inj SUBQ SCH ×3 (06:04→21:24)
[2018-02-26] MEDS: NovoLOG Insulin Flexpen SUBQ SCH ×4 (06:09→21:26)
[2018-02-26 07:41] LABS: BASOPHILS % (AUTO) 1.5 % (0.0-2.0); EOSINOPHILS % (AUTO) 3.9 % (0.0-3.0); HEMATOCRIT 33.2 % (42.0-52.0); HEMOGLOBIN 10.6 G/DL (14.2-18.0); LYMPHOCYTES % (AUTO) 12.2 % (20.0-45.0); MEAN CORPUSCULAR VOLUME 97 FL (80-99); MONOCYTES % (AUTO) 7.3 % (1.0-10.0); NEUTROPHILS % (AUTO) 75.1 % (45.0-75.0); PLATELET COUNT 276 K/UL (150-450); RED BLOOD COUNT 3.42 M/UL (4.70-6.10); RED CELL DISTRIBUTION WIDTH 13.9 % (11.6-14.8); WHITE BLOOD COUNT 7.7 K/UL (4.8-10.8)
[2018-02-26 08:05] LABS: ALANINE AMINOTRANSFERASE 21 U/L (12-78); ALBUMIN 1.8 G/DL (3.4-5.0); ALBUMIN/GLOBULIN RATIO 0.4 (1.0-2.7); ALKALINE PHOSPHATASE 85 U/L (46-116); ANION GAP 6 mmol/L (5-15); ASPARTATE AMINO TRANSFERASE 19 U/L (15-37); BILIRUBIN,TOTAL 0.3 MG/DL (0.2-1.0); BLOOD UREA NITROGEN 11 mg/dL (7-18); CALCIUM 8.4 MG/DL (8.5-10.1); CARBON DIOXIDE 32 MMOL/L (21-32); CHLORIDE 107 MMOL/L (98-107); CREATININE 0.7 MG/DL (0.55-1.30); SODIUM 145 MMOL/L (136-145)
[2018-02-26] MEDS: Docusate 100mg/10ml Liq NG SCH ×2 (08:41→17:34)
[2018-02-26] MEDS: Aspirin Baby 81mg NG SCH (08:41)
[2018-02-26] MEDS: Metoprolol Tartrate 12.5mg TAB NG SCH ×2 (08:41→21:22)
[2018-02-26] MEDS: Tums 500mg GT SCH ×3 (08:41→17:34)
[2018-02-26] MEDS: levETIRAcetam 500mg/5ml Liquid NG SCH ×2 (08:41→21:22)
[2018-02-26] MEDS: Levothyroxine 125mcg tab NG SCH (08:42)
[2018-02-26] MEDS: Triamcinolone 0.025% oint TOPIC SCH ×3 (09:03→17:34)
--- NOTE | 2018-02-26 11:16 | Diagnostic Imaging Report ---
Indication: Dyspnea Comparison: 02/19/2018 A single view chest radiograph was obtained. Findings: Basilar parenchymal densities demonstrated in the setting of enlarged heart. Central vascularity mildly prominent. PICC line is stable. IMPRESSION: Basilar/perihilar infiltrates versus mild central edema without significant change. Correlate clinically
--- NOTE | 2018-02-26 13:11 | Pulmonology Progress Note ---
Assessment/Plan Problems: (1) Pneumonia (2) Sepsis (3) Congenital heart disease, adult (4) Down syndrome (5) Mental retardation (6) Anxiety Assessment/Plan ASSESSMENT: The patient is a 67-year-old male with a history of mental retardation and chronic subdural hematomas, recently admitted to [facility] with tracheobronchitis and poor mucociliary clearance, now presenting with dehydration, mild troponin elevation, acute kidney injury, and possible right infrahilar infiltrate. PROBLEM LIST: 1. Respiratory failure 2. Right perihilar infiltrate, healthcare-associated pneumonia. 3. MRSA sepsis and pneumonia 4. Acute kidney injury, likely dehydration. 5. Mild troponin elevation, likely demand ischemia. 6. History of recurrent aspiration pneumonia in the past. 7. Chronic subdural hematoma. 8. Mental retardation. 9. Hypothyroidism. 10. Chronic right bundle-branch block. 11. Acute on chronic CVA 12. Elevated D-dimer with negative Duplex and VQ 13. Dysphagia S/P PEG TREATMENT PLAN: 1. Monitor respiratory status 2. BiPAP PRN and qHS 3. Titrate down FiO2 to keep SaO2 > 90%. 4. RTC and PRN HHN's, CPT 5. Mucomyst HHN's 6. Abx per ID, F/U Cx's 7. NPO, GTF's 8. Monitor volumes 9. Hep SQ for DVT Px 10. Check INR, monitor for further epistaxis, ENT eval 11. FC Subjective Allergies: Coded Allergies: SULFA (SULFONAMIDE ANTIBIOTICS) (Verified Allergy, Unknown, 09/02/15) Subjective AFVSS, O2 needs stable, no distress, secretions unchnaged, no F/C Objective Last 24 Hour Vital Signs Date Time Temp Pulse Resp B/P (MAP) Pulse Ox O2 Delivery O2 Flow Rate FiO2 02/26/18 10:32 71 22 100 Nasal Cannula 3.0 32 02/26/18 10:22 73 20 98 Nasal Cannula 3.0 32 02/26/18 09:00 Nasal Cannula 4.0 02/26/18 08:41 80 121/51 02/26/18 08:00 98.4 80 20 121/51 (74) 95 98.4 02/26/18 07:35 73 24 99 Nasal Cannula 3.0 32 02/26/18 07:34 99 Nasal Cannula 3.0 32 02/26/18 07:34 Nasal Cannula 3.0 32 02/26/18 07:23 71 22 97 Bi-pap 35 02/26/18 05:19 66 23 99 Facial 35 02/26/18 04:00 70 02/26/18 04:00 98.4 66 16 104/60 (75) 100 98.4 02/26/18 03:38 68 20 100 Bi-pap 35 02/26/18 03:27 63 19 98 Facial 35 02/26/18 03:19 72 24 99 Bi-pap 35 02/26/18 00:59 65 22 99 Facial 35 02/26/18 00:00 70 02/26/18 00:00 98.3 67 16 86/55 (65) 100 98.3 02/25/18 23:32 64 20 99 Bi-pap 35 02/25/18 23:31 62 16 99 Facial 35 02/25/18 23:16 61 20 99 Nasal Cannula 3.0 32 02/25/18 21:00 67 91/44 02/25/18 20:00 97.8 69 22 91/40 (57) 100 97.8 02/25/18 20:00 87 02/25/18 19:57 Nasal Cannula 4.0 02/25/18 19:25 67 20 99 Nasal Cannula 3.0 32 02/25/18 19:13 Nasal Cannula 3.0 32 02/25/18 19:13 62 20 99 Nasal Cannula 3.0 32 02/25/18 19:12 99 Nasal Cannula 3.0 32 02/25/18 16:00 98.2 83 18 94/68 (77) 99 98.2 02/25/18 16:00 85 02/25/18 15:32 73 20 95 Nasal Cannula 3.0 32 02/25/18 15:11 76 20 95 Nasal Cannula 3.0 32 Intake and Output 02/25/18 02/26/18 19:00 07:00 Intake Total 50 ml 1350 ml Output Total 700 ml 2202 ml Balance -650 ml -852 ml Free Water 120 ml IV Total 630 ml Tube Feeding 50 ml 600 ml Output Urine Total 700 ml 2200 ml Stool Total 2 ml General Appearance: cachetic HEENT: normocephalic, atraumatic, anicteric, mucous membranes moist Respiratory/Chest: chest wall non-tender, lungs clear, rhonchi Cardiovascular: normal peripheral pulses, normal rate, regular rhythm Abdomen: normal bowel sounds, soft, non tender, no organomegaly, non distended , no mass, other - GT Extremities: no cyanosis, no clubbing, no edema Laboratory Tests 02/26/18 06:25: White Blood Count 7.7, Red Blood Count 3.42L, Hemoglobin 10.6L, Hematocrit 33.2L , Mean Corpuscular Volume 97, Mean Corpuscular Hemoglobin 31.0, Mean Corpuscular Hemoglobin Concent 31.9L, Red Cell Distribution Width 13.9, Platelet Count 276, Mean Platelet Volume 7.9, Neutrophils (%) (Auto) 75.1H, Lymphocytes (%) (Auto) 12.2L, Monocytes (%) (Auto) 7.3, Eosinophils (%) (Auto) 3.9H, Basophils (%) (Auto) 1.5, Sodium Level 145, Potassium Level 4.0, Chloride Level 107, Carbon Dioxide Level 32, Anion Gap 6, Blood Urea Nitrogen 11, Creatinine 0.7, Estimat Glomerular Filtration Rate > 60, Glucose Level 102, Calcium Level 8.4L, Magnesium Level 2.2, Total Bilirubin 0.3, Aspartate Amino Transf (AST/SGOT) 19, Alanine Aminotransferase (ALT/SGPT) 21, Alkaline Phosphatase 85, Pro-B-Type Natriuretic Peptide 1208H, Total Protein 6.6, Albumin 1.8L, Globulin 4.8, Albumin/Globulin Ratio 0.4L Current Medications Medications (Trade) Dose Ordered Sig/Eddy Route PRN Reason Start Time Stop Time Status Last Admin Dose Admin Acetaminophen (Tylenol) 650 mg Q6H PRN NG Mild Pain/Temp > 100.5 02/11/18 18:18 03/12/18 18:17 02/19/18 03:50 Acetylcysteine (Mucomyst) 100 mg Q4HRT N 02/21/18 19:00 03/23/18 18:59 02/26/18 10:22 Albuterol/ Ipratropium (Albuterol/ Ipratropium) 3 ml Q4HRT [facility] 02/23/18 11:00 02/28/18 10:59 02/26/18 10:22 Aspirin (ASA) 81 mg DAILY NG 02/12/18 09:00 11/7/18 08:59 02/26/18 08:41 Atorvastatin Calcium (Lipitor) 10 mg BEDTIME NG 02/11/18 21:00 03/09/18 20:59 02/25/18 20:31 Calcium Carbonate (Tums) 500 mg THREE TIMES A DAY GT 02/12/18 09:00 03/09/18 08:59 02/26/18 08:41 Chlorhexidine Gluconate (Tesha-Hex 2%) 1 applic DAILY@2000 TOPIC 02/19/18 20:00 03/21/18 19:59 02/25/18 20:31 Dextrose (Dextrose 50%) 25 ml Q30M PRN IV Hypoglycemia 02/22/18 16:15 03/24/18 16:14 Docusate Sodium (Colace) 100 mg TWICE A DAY NG 02/12/18 09:00 03/13/18 08:59 02/26/18 08:41 Guaifenesin (Robitussin) 100 mg Q4H PRN NG For Cough 02/13/18 13:45 03/14/18 18:14 Heparin Sodium (Porcine) (Heparin 5000 units/ml) 5,000 units EVERY 8 HOURS SUBQ 02/23/18 14:00 03/25/18 13:59 02/26/18 06:04 Insulin Aspart (NovoLOG) BEFORE MEALS AND HS SUBQ 02/22/18 16:30 03/24/18 16:29 02/26/18 11:07 Lansoprazole (Prevacid) 30 mg DAILY NG 02/25/18 09:00 03/27/18 08:59 02/26/18 08:41 Levetiracetam (Keppra) 1,000 mg Q12HR NG 02/16/18 21:00 03/18/18 20:59 02/26/18 08:41 Levothyroxine Sodium (Synthroid) 125 mcg DAILY NG 02/17/18 09:00 03/19/18 08:59 02/26/18 08:42 Magnesium Hydroxide (Mom) 30 ml HSPRN PRN NG Constipation 02/11/18 21:00 03/09/18 20:59 Meropenem 1 gm/ Sodium Chloride 55 ml @ 110 mls/hr Q8H IVPB 02/18/18 11:00 02/27/18 10:59 02/26/18 10:57 Metoprolol Tartrate (Lopressor) 5 mg Q4H PRN IVP hr>130 02/11/18 18:19 03/09/18 18:18 Metoprolol Tartrate (Lopressor) 12.5 mg Q12HR NG 02/11/18 21:00 03/09/18 08:59 02/26/18 08:41 Olanzapine (ZyPREXA) 5 mg DAILY@2100 NG 02/11/18 21:00 03/12/18 20:59 02/25/18 20:31 Sodium Chloride 1,000 ml @ 50 mls/hr Q20H IV 02/22/18 12:00 03/24/18 11:59 02/25/18 20:31 Triamcinolone Acetonide (Kenalog 0.025% Oint) 1 applic THREE TIMES A DAY TOPIC 02/14/18 18:00 03/16/18 17:59 02/26/18 09:03 Vancomycin HCl (Vanco rx to dose) 1 ea DAILY PRN MISC PER PHARMACY 02/12/18 09:00 03/09/18 07:29 Vancomycin HCl 500 mg/Dextrose 110 ml @ 110 mls/hr Q12HR@0100,1300 IVPB 02/22/18 13:00 03/06/18 12:59 02/26/18 00:35 Sae Forrest MD Feb 26, 2018 13:11
--- NOTE | 2018-02-26 17:07 | Infectious Diseases Prog Note ---
Assessment/Plan Assessment/Plan A: 1. pneumonia with MRSA & E. coli 2. respiratory failure 3. Acute lacunar CVA 4. mental retardation 5. staph aureus sepsis r/o endocarditis 6. New sepsis with fever, leukocytosis & Tachycardia 7. Dysphagia s/p GT 8. rash in legs, ? candidal dermatitis P 1. continue vancomycin iv, X 8 days 2. Continue Meropenem X 1 day 3. Add Clotrimazole cream Subjective ROS Limited/Unobtainable: Yes Allergies: Coded Allergies: SULFA (SULFONAMIDE ANTIBIOTICS) (Verified Allergy, Unknown, 09/02/15) Objective Vital Signs Last 24 Hour Vital Signs Date Time Temp Pulse Resp B/P (MAP) Pulse Ox O2 Delivery O2 Flow Rate FiO2 02/26/18 16:00 65 02/26/18 16:00 98.1 119 20 114/61 (78) 98 98.1 02/26/18 15:12 73 20 99 Nasal Cannula 3.0 32 02/26/18 15:01 76 20 99 Nasal Cannula 3.0 32 02/26/18 12:00 97.9 85 20 121/67 (85) 98 97.9 02/26/18 12:00 78 02/26/18 10:32 71 22 100 Nasal Cannula 3.0 32 02/26/18 10:22 73 20 98 Nasal Cannula 3.0 32 02/26/18 09:00 Nasal Cannula 4.0 02/26/18 08:41 80 121/51 02/26/18 08:00 98.4 80 20 121/51 (74) 95 98.4 02/26/18 08:00 87 02/26/18 07:35 73 24 99 Nasal Cannula 3.0 32 02/26/18 07:34 99 Nasal Cannula 3.0 32 02/26/18 07:34 Nasal Cannula 3.0 32 02/26/18 07:23 71 22 97 Bi-pap 35 02/26/18 05:19 66 23 99 Facial 35 02/26/18 04:00 70 02/26/18 04:00 98.4 66 16 104/60 (75) 100 98.4 02/26/18 03:38 68 20 100 Bi-pap 35 02/26/18 03:27 63 19 98 Facial 35 02/26/18 03:19 72 24 99 Bi-pap 35 02/26/18 00:59 65 22 99 Facial 35 02/26/18 00:00 70 02/26/18 00:00 98.3 67 16 86/55 (65) 100 98.3 02/25/18 23:32 64 20 99 Bi-pap 35 02/25/18 23:31 62 16 99 Facial 35 02/25/18 23:16 61 20 99 Nasal Cannula 3.0 32 02/25/18 21:00 67 91/44 02/25/18 20:00 97.8 69 22 91/40 (57) 100 97.8 02/25/18 20:00 87 02/25/18 19:57 Nasal Cannula 4.0 02/25/18 19:25 67 20 99 Nasal Cannula 3.0 32 02/25/18 19:13 Nasal Cannula 3.0 32 02/25/18 19:13 62 20 99 Nasal Cannula 3.0 32 02/25/18 19:12 99 Nasal Cannula 3.0 32 Height (Feet): 5 Height (Inches): 5.00 Weight (Pounds): 118 General Appearance: no acute distress HEENT: other - internal deviation of right eye Respiratory/Chest: lungs clear Cardiovascular: normal rate Abdomen: soft, non tender, other - GT feeding Extremities: no edema Skin: rash, other - in legs 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: aphasia Laboratory Tests Test 02/26/18 06:25 White Blood Count 7.7 K/UL (4.8-10.8) Red Blood Count 3.42 M/UL (4.70-6.10) L Hemoglobin 10.6 G/DL (14.2-18.0) L Hematocrit 33.2 % (42.0-52.0) L Mean Corpuscular Volume 97 FL (80-99) Mean Corpuscular Hemoglobin 31.0 PG (27.0-31.0) Mean Corpuscular Hemoglobin Concent 31.9 G/DL (32.0-36.0) L Red Cell Distribution Width 13.9 % (11.6-14.8) Platelet Count 276 K/UL (150-450) Mean Platelet Volume 7.9 FL (6.5-10.1) Neutrophils (%) (Auto) 75.1 % (45.0-75.0) H Lymphocytes (%) (Auto) 12.2 % (20.0-45.0) L Monocytes (%) (Auto) 7.3 % (1.0-10.0) Eosinophils (%) (Auto) 3.9 % (0.0-3.0) H Basophils (%) (Auto) 1.5 % (0.0-2.0) Sodium Level 145 MMOL/L (136-145) Potassium Level 4.0 MMOL/L (3.5-5.1) Chloride Level 107 MMOL/L (98-107) Carbon Dioxide Level 32 MMOL/L (21-32) Anion Gap 6 mmol/L (5-15) Blood Urea Nitrogen 11 mg/dL (7-18) Creatinine 0.7 MG/DL (0.55-1.30) Estimat Glomerular Filtration Rate > 60 mL/min (>60) Glucose Level 102 MG/DL (74-106) Calcium Level 8.4 MG/DL (8.5-10.1) L Magnesium Level 2.2 MG/DL (1.8-2.4) Total Bilirubin 0.3 MG/DL (0.2-1.0) Aspartate Amino Transf (AST/SGOT) 19 U/L (15-37) Alanine Aminotransferase (ALT/SGPT) 21 U/L (12-78) Alkaline Phosphatase 85 U/L (46-116) Pro-B-Type Natriuretic Peptide 1208 pg/mL (0-125) H Total Protein 6.6 G/DL (6.4-8.2) Albumin 1.8 G/DL (3.4-5.0) L Globulin 4.8 g/dL Albumin/Globulin Ratio 0.4 (1.0-2.7) L Current Medications Medications (Trade) Dose Ordered Sig/Eddy Route PRN Reason Start Time Stop Time Status Last Admin Dose Admin Acetaminophen (Tylenol) 650 mg Q6H PRN NG Mild Pain/Temp > 100.5 02/11/18 18:18 03/12/18 18:17 02/19/18 03:50 Acetylcysteine (Mucomyst) 100 mg Q4HRT [facility] 02/21/18 19:00 03/23/18 18:59 02/26/18 15:01 Albuterol/ Ipratropium (Albuterol/ Ipratropium) 3 ml Q4HRT [facility] 02/23/18 11:00 02/28/18 10:59 02/26/18 15:00 Aspirin (ASA) 81 mg DAILY NG 02/12/18 09:00 03/14/18 08:59 02/26/18 08:41 Atorvastatin Calcium (Lipitor) 10 mg BEDTIME NG 02/11/18 21:00 03/09/18 20:59 02/25/18 20:31 Calcium Carbonate (Tums) 500 mg THREE TIMES A DAY GT 02/12/18 09:00 03/09/18 08:59 02/26/18 14:00 Chlorhexidine Gluconate (Tesha-Hex 2%) 1 applic DAILY@2000 TOPIC 02/19/18 20:00 03/21/18 19:59 02/25/18 20:31 Dextrose (Dextrose 50%) 25 ml Q30M PRN IV Hypoglycemia 02/22/18 16:15 03/24/18 16:14 Docusate Sodium (Colace) 100 mg TWICE A DAY NG 02/12/18 09:00 03/13/18 08:59 02/26/18 08:41 Guaifenesin (Robitussin) 100 mg Q4H PRN NG For Cough 02/13/18 13:45 03/14/18 18:14 Heparin Sodium (Porcine) (Heparin 5000 units/ml) 5,000 units EVERY 8 HOURS SUBQ 02/23/18 14:00 03/25/18 13:59 02/26/18 14:02 Insulin Aspart (NovoLOG) BEFORE MEALS AND HS SUBQ 02/22/18 16:30 03/24/18 16:29 02/26/18 11:07 Lansoprazole (Prevacid) 30 mg DAILY NG 02/25/18 09:00 03/27/18 08:59 02/26/18 08:41 Levetiracetam (Keppra) 1,000 mg Q12HR NG 02/16/18 21:00 03/18/18 20:59 02/26/18 08:41 Levothyroxine Sodium (Synthroid) 125 mcg DAILY NG 02/17/18 09:00 03/19/18 08:59 02/26/18 08:42 Magnesium Hydroxide (Mom) 30 ml HSPRN PRN NG Constipation 02/11/18 21:00 03/09/18 20:59 Meropenem 1 gm/ Sodium Chloride 55 ml @ 110 mls/hr Q8H IVPB 02/18/18 11:00 02/27/18 10:59 02/26/18 10:57 Metoprolol Tartrate (Lopressor) 5 mg Q4H PRN IVP hr>130 02/11/18 18:19 03/09/18 18:18 Metoprolol Tartrate (Lopressor) 12.5 mg Q12HR NG 02/11/18 21:00 03/09/18 08:59 02/26/18 08:41 Olanzapine (ZyPREXA) 5 mg DAILY@2100 NG 02/11/18 21:00 03/12/18 20:59 02/25/18 20:31 Sodium Chloride 1,000 ml @ 50 mls/hr Q20H IV 02/22/18 12:00 03/24/18 11:59 02/25/18 20:31 Triamcinolone Acetonide (Kenalog 0.025% Oint) 1 applic THREE TIMES A DAY TOPIC 02/14/18 18:00 03/16/18 17:59 02/26/18 14:02 Vancomycin HCl (Vanco rx to dose) 1 ea DAILY PRN MISC PER PHARMACY 02/12/18 09:00 03/09/18 07:29 Vancomycin HCl 500 mg/Dextrose 110 ml @ 110 mls/hr Q12HR@0100,1300 IVPB 02/22/18 13:00 03/06/18 12:59 02/26/18 13:59 Wilbur Escudero MD Feb 26, 2018 17:07
--- NOTE | 2018-02-26 20:18 | Cardiology Progress Note ---
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 pneumonia arf hs of svt chronic subdural hematoma eczema all bc neg echo tomorrow no fevers contienu abx per id Subjective ROS Limited/Unobtainable: Yes Subjective appear calm and dry no sig cough during my evaluation Objective Last 24 Hour Vital Signs Date Time Temp Pulse Resp B/P (MAP) Pulse Ox O2 Delivery O2 Flow Rate FiO2 02/26/18 19:31 77 20 100 Nasal Cannula 3.0 32 02/26/18 19:23 98 Nasal Cannula 3.0 32 02/26/18 19:23 Nasal Cannula 3.0 32 02/26/18 19:21 65 20 98 Nasal Cannula 3.0 32 02/26/18 16:00 65 02/26/18 16:00 98.1 119 20 114/61 (78) 98 98.1 02/26/18 15:12 73 20 99 Nasal Cannula 3.0 32 02/26/18 15:01 76 20 99 Nasal Cannula 3.0 32 02/26/18 12:00 97.9 85 20 121/67 (85) 98 97.9 02/26/18 12:00 78 02/26/18 10:32 71 22 100 Nasal Cannula 3.0 32 02/26/18 10:22 73 20 98 Nasal Cannula 3.0 32 02/26/18 09:00 Nasal Cannula 4.0 02/26/18 08:41 80 121/51 02/26/18 08:00 98.4 80 20 121/51 (74) 95 98.4 02/26/18 08:00 87 02/26/18 07:35 73 24 99 Nasal Cannula 3.0 32 02/26/18 07:34 99 Nasal Cannula 3.0 32 02/26/18 07:34 Nasal Cannula 3.0 32 02/26/18 07:23 71 22 97 Bi-pap 35 02/26/18 05:19 66 23 99 Facial 35 02/26/18 04:00 70 02/26/18 04:00 98.4 66 16 104/60 (75) 100 98.4 02/26/18 03:38 68 20 100 Bi-pap 35 02/26/18 03:27 63 19 98 Facial 35 02/26/18 03:19 72 24 99 Bi-pap 35 02/26/18 00:59 65 22 99 Facial 35 02/26/18 00:00 70 02/26/18 00:00 98.3 67 16 86/55 (65) 100 98.3 02/25/18 23:32 64 20 99 Bi-pap 35 02/25/18 23:31 62 16 99 Facial 35 02/25/18 23:16 61 20 99 Nasal Cannula 3.0 32 02/25/18 21:00 67 91/44 General Appearance: no apparent distress, alert Cardiovascular: normal rate Respiratory/Chest: lungs clear Abdomen: normal bowel sounds, non tender, soft Extremities: no swelling Intake and Output 02/25/18 02/26/18 19:00 07:00 Intake Total 50 ml 1350 ml Output Total 700 ml 2202 ml Balance -650 ml -852 ml Free Water 120 ml IV Total 630 ml Tube Feeding 50 ml 600 ml Output Urine Total 700 ml 2200 ml Stool Total 2 ml Laboratory Tests Test 02/26/18 06:25 White Blood Count 7.7 K/UL (4.8-10.8) Red Blood Count 3.42 M/UL (4.70-6.10) L Hemoglobin 10.6 G/DL (14.2-18.0) L Hematocrit 33.2 % (42.0-52.0) L Mean Corpuscular Volume 97 FL (80-99) Mean Corpuscular Hemoglobin 31.0 PG (27.0-31.0) Mean Corpuscular Hemoglobin Concent 31.9 G/DL (32.0-36.0) L Red Cell Distribution Width 13.9 % (11.6-14.8) Platelet Count 276 K/UL (150-450) Mean Platelet Volume 7.9 FL (6.5-10.1) Neutrophils (%) (Auto) 75.1 % (45.0-75.0) H Lymphocytes (%) (Auto) 12.2 % (20.0-45.0) L Monocytes (%) (Auto) 7.3 % (1.0-10.0) Eosinophils (%) (Auto) 3.9 % (0.0-3.0) H Basophils (%) (Auto) 1.5 % (0.0-2.0) Sodium Level 145 MMOL/L (136-145) Potassium Level 4.0 MMOL/L (3.5-5.1) Chloride Level 107 MMOL/L (98-107) Carbon Dioxide Level 32 MMOL/L (21-32) Anion Gap 6 mmol/L (5-15) Blood Urea Nitrogen 11 mg/dL (7-18) Creatinine 0.7 MG/DL (0.55-1.30) Estimat Glomerular Filtration Rate > 60 mL/min (>60) Glucose Level 102 MG/DL (74-106) Calcium Level 8.4 MG/DL (8.5-10.1) L Magnesium Level 2.2 MG/DL (1.8-2.4) Total Bilirubin 0.3 MG/DL (0.2-1.0) Aspartate Amino Transf (AST/SGOT) 19 U/L (15-37) Alanine Aminotransferase (ALT/SGPT) 21 U/L (12-78) Alkaline Phosphatase 85 U/L (46-116) Pro-B-Type Natriuretic Peptide 1208 pg/mL (0-125) H Total Protein 6.6 G/DL (6.4-8.2) Albumin 1.8 G/DL (3.4-5.0) L Globulin 4.8 g/dL Albumin/Globulin Ratio 0.4 (1.0-2.7) L Amos Sue MD Feb 26, 2018 20:18
[2018-02-26] MEDS: Dyna-Hex 2% Top Sol 2oz TOPIC SCH (21:22)
--- NOTE | 2018-02-26 22:36 | General Progress Note ---
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 - mild hypnatremia - etiology - pneumonitis - failed swallow - s/p PEG - h/o CHF - Fever and Leukocytosis - resolved Recommendations - Continue TF - free water restriction - Abx - optimize pulmonary parameters - d/c planning Subjective Allergies: Coded Allergies: SULFA (SULFONAMIDE ANTIBIOTICS) (Verified Allergy, Unknown, 09/02/15) Subjective tolerating TF NAD comfortable d/w event staff Objective Last 24 Hour Vital Signs Date Time Temp Pulse Resp B/P (MAP) Pulse Ox O2 Delivery O2 Flow Rate FiO2 02/26/18 21:22 69 95/50 02/26/18 20:00 97.9 69 18 95/50 (65) 96 97.9 02/26/18 19:31 77 20 100 Nasal Cannula 3.0 32 02/26/18 19:23 98 Nasal Cannula 3.0 32 02/26/18 19:23 Nasal Cannula 3.0 32 02/26/18 19:21 65 20 98 Nasal Cannula 3.0 32 02/26/18 16:00 65 02/26/18 16:00 98.1 119 20 114/61 (78) 98 98.1 02/26/18 15:12 73 20 99 Nasal Cannula 3.0 32 02/26/18 15:01 76 20 99 Nasal Cannula 3.0 32 02/26/18 12:00 97.9 85 20 121/67 (85) 98 97.9 02/26/18 12:00 78 02/26/18 10:32 71 22 100 Nasal Cannula 3.0 32 02/26/18 10:22 73 20 98 Nasal Cannula 3.0 32 02/26/18 09:00 Nasal Cannula 4.0 02/26/18 08:41 80 121/51 02/26/18 08:00 98.4 80 20 121/51 (74) 95 98.4 02/26/18 08:00 87 02/26/18 07:35 73 24 99 Nasal Cannula 3.0 32 02/26/18 07:34 99 Nasal Cannula 3.0 32 02/26/18 07:34 Nasal Cannula 3.0 32 02/26/18 07:23 71 22 97 Bi-pap 35 02/26/18 05:19 66 23 99 Facial 35 02/26/18 04:00 70 02/26/18 04:00 98.4 66 16 104/60 (75) 100 98.4 02/26/18 03:38 68 20 100 Bi-pap 35 02/26/18 03:27 63 19 98 Facial 35 02/26/18 03:19 72 24 99 Bi-pap 35 02/26/18 00:59 65 22 99 Facial 35 02/26/18 00:00 70 02/26/18 00:00 98.3 67 16 86/55 (65) 100 98.3 02/25/18 23:32 64 20 99 Bi-pap 35 02/25/18 23:31 62 16 99 Facial 35 02/25/18 23:16 61 20 99 Nasal Cannula 3.0 32 Intake and Output 02/25/18 02/26/18 18:59 06:59 Intake Total 1300 ml Output Total 700 ml 2202 ml Balance -700 ml -902 ml Free Water 120 ml IV Total 580 ml Tube Feeding 600 ml Output Urine Total 700 ml 2200 ml Stool Total 2 ml Laboratory Tests 02/26/18 06:25: White Blood Count 7.7, Red Blood Count 3.42L, Hemoglobin 10.6L, Hematocrit 33.2L , Mean Corpuscular Volume 97, Mean Corpuscular Hemoglobin 31.0, Mean Corpuscular Hemoglobin Concent 31.9L, Red Cell Distribution Width 13.9, Platelet Count 276, Mean Platelet Volume 7.9, Neutrophils (%) (Auto) 75.1H, Lymphocytes (%) (Auto) 12.2L, Monocytes (%) (Auto) 7.3, Eosinophils (%) (Auto) 3.9H, Basophils (%) (Auto) 1.5, Sodium Level 145, Potassium Level 4.0, Chloride Level 107, Carbon Dioxide Level 32, Anion Gap 6, Blood Urea Nitrogen 11, Creatinine 0.7, Estimat Glomerular Filtration Rate > 60, Glucose Level 102, Calcium Level 8.4L, Magnesium Level 2.2, Total Bilirubin 0.3, Aspartate Amino Transf (AST/SGOT) 19, Alanine Aminotransferase (ALT/SGPT) 21, Alkaline Phosphatase 85, Pro-B-Type Natriuretic Peptide 1208H, Total Protein 6.6, Albumin 1.8L, Globulin 4.8, Albumin/Globulin Ratio 0.4L Height (Feet): 5 Height (Inches): 5.00 Weight (Pounds): 118 Objective WDWN WM NCAT supple Chest b/l Luis RR abd soft ND, (+) PEG no edema OBS Michael Estevez MD Feb 26, 2018 22:36
--- NOTE | 2018-02-26 23:44 | General Progress Note ---
Assessment/Plan Status: progressing Assessment/Plan ASSESSMENT: 1. Shortness of breath, possibly secondary to pneumonia, possible sepsis. 2. Acute respiratory failure requiring BiPAP. 3. Acute kidney injury. 4. Elevated troponin, possibly from demand ischemia. 5. Developmental delay. 6. Dysphagia. 7. Psoriasis. 8. Acute left cerebellar infarction 9. MRSA bacteremia/Pneumonia/?endocarditis 10. epistaxis, secondary to trauma from NGT and suctioning 11. sepsis/recurrent asspiration pneumonia? 12. Vascular congestion 13. hypokalemia 14. S/P PEG placement on 02-22-18 PLAN: 1. Continue the patient on BiPAP support prn 2. Monitor vitals and I and O's. 3. advance NGT and start diet in cxr confirmed palcement 4. The patient was started on IV vancomycin and Zosyn. 5. To continue breathing treatment with frequent suctioning p.r.n. 6. Continue penitentiary medications. 7. Monitor troponin. 8. Heparin for DVT prophylaxis. 9. Protonix for GI prophylaxis. 10. Dr. Forrest, Pulmonary consult and Dr. Johnston, ID consult. 11. change aspirin to 81 mg daily 12. fu Echo and carotic us and venous duplex 13 gi consult appreciated, NGT for now repeat swallow eval later when more stable 14. NGT for meds and tube feeding 15. repeat Blood cultures to check for clearance of MRSA conitnue supportive care continue telemetry VQ scan negative for PE monitor labs ENT consult to evaluate for epistaxis, will check am cbc and INR/PTT PICC line placement for IV vanco for 11more days for possible endocarditis and Meropenam fo 4 more days per ID will dc to [facility] when bed available I spoke with Dr. Mckenna from [facility] who agrees to PEG for consent can call [phone] Nini Baltazar director or for Emergency [phone] PICC line placed 02-19-18 right groin line removed 02-19-18, fu cultures now on Vanco and Meopenam s/p iv lasix one dose yesterday with less congestion today echo to be repeated per cardiology tube feedings to be started at midnight am labs NPO by mouth continue IV hydration ok to transfer to [facility] when bed available conitnue Meopenam 1more day and iV Vancomycin for 8 more days Subjective Date patient seen: Feb 26, 2018 ROS Limited/Unobtainable: Yes Allergies: Coded Allergies: SULFA (SULFONAMIDE ANTIBIOTICS) (Verified Allergy, Unknown, 09/02/15) Subjective s/p PEG today, saturating 98 % on room air, 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 Objective Last 24 Hour Vital Signs Date Time Temp Pulse Resp B/P (MAP) Pulse Ox O2 Delivery O2 Flow Rate FiO2 02/26/18 23:14 71 18 99 Nasal Cannula 3.0 32 02/26/18 23:14 69 19 98 Facial 35 02/26/18 23:03 69 20 97 Nasal Cannula 3.0 32 02/26/18 21:22 69 95/50 02/26/18 21:00 Nasal Cannula 4.0 02/26/18 20:00 73 02/26/18 20:00 97.9 69 18 95/50 (65) 96 97.9 02/26/18 19:31 77 20 100 Nasal Cannula 3.0 32 02/26/18 19:23 98 Nasal Cannula 3.0 32 02/26/18 19:23 Nasal Cannula 3.0 32 02/26/18 19:21 65 20 98 Nasal Cannula 3.0 32 02/26/18 16:00 65 02/26/18 16:00 98.1 119 20 114/61 (78) 98 98.1 02/26/18 15:12 73 20 99 Nasal Cannula 3.0 32 02/26/18 15:01 76 20 99 Nasal Cannula 3.0 32 02/26/18 12:00 97.9 85 20 121/67 (85) 98 97.9 02/26/18 12:00 78 02/26/18 10:32 71 22 100 Nasal Cannula 3.0 32 02/26/18 10:22 73 20 98 Nasal Cannula 3.0 32 02/26/18 09:00 Nasal Cannula 4.0 02/26/18 08:41 80 121/51 02/26/18 08:00 98.4 80 20 121/51 (74) 95 98.4 02/26/18 08:00 87 02/26/18 07:35 73 24 99 Nasal Cannula 3.0 32 02/26/18 07:34 99 Nasal Cannula 3.0 32 02/26/18 07:34 Nasal Cannula 3.0 32 02/26/18 07:23 71 22 97 Bi-pap 35 02/26/18 05:19 66 23 99 Facial 35 02/26/18 04:00 70 02/26/18 04:00 98.4 66 16 104/60 (75) 100 98.4 02/26/18 03:38 68 20 100 Bi-pap 35 02/26/18 03:27 63 19 98 Facial 35 02/26/18 03:19 72 24 99 Bi-pap 35 02/26/18 00:59 65 22 99 Facial 35 02/26/18 00:00 70 02/26/18 00:00 98.3 67 16 86/55 (65) 100 98.3 Intake and Output 02/25/18 02/26/18 18:59 06:59 Intake Total 1300 ml Output Total 700 ml 2202 ml Balance -700 ml -902 ml Free Water 120 ml IV Total 580 ml Tube Feeding 600 ml Output Urine Total 700 ml 2200 ml Stool Total 2 ml Laboratory Tests 02/26/18 06:25: White Blood Count 7.7, Red Blood Count 3.42L, Hemoglobin 10.6L, Hematocrit 33.2L , Mean Corpuscular Volume 97, Mean Corpuscular Hemoglobin 31.0, Mean Corpuscular Hemoglobin Concent 31.9L, Red Cell Distribution Width 13.9, Platelet Count 276, Mean Platelet Volume 7.9, Neutrophils (%) (Auto) 75.1H, Lymphocytes (%) (Auto) 12.2L, Monocytes (%) (Auto) 7.3, Eosinophils (%) (Auto) 3.9H, Basophils (%) (Auto) 1.5, Sodium Level 145, Potassium Level 4.0, Chloride Level 107, Carbon Dioxide Level 32, Anion Gap 6, Blood Urea Nitrogen 11, Creatinine 0.7, Estimat Glomerular Filtration Rate > 60, Glucose Level 102, Calcium Level 8.4L, Magnesium Level 2.2, Total Bilirubin 0.3, Aspartate Amino Transf (AST/SGOT) 19, Alanine Aminotransferase (ALT/SGPT) 21, Alkaline Phosphatase 85, Pro-B-Type Natriuretic Peptide 1208H, Total Protein 6.6, Albumin 1.8L, Globulin 4.8, Albumin/Globulin Ratio 0.4L Height (Feet): 5 Height (Inches): 5.00 Weight (Pounds): 118 General Appearance: alert EENT: PERRL/EOMI, pharynx normal Neck: non-tender, supple Cardiovascular: normal rate, regular rhythm, no gallop/murmur, no JVD Respiratory/Chest: lungs clear Abdomen: non tender, soft, no mass Extremities: non-tender, normal inspection, no calf tenderness Edema: no edema noted Arm (L), no edema noted Arm (R), no edema noted Leg (L), no edema noted Leg (R), no edema noted Pedal (L), no edema noted Pedal (R), no edema noted Generalized Neurologic: alert Skin: rash Lymphatic: normal anterior cervical (L), normal anterior cervical (R), normal posterior cervical (L), normal posterior cervical (R), normal submandibular (L) , normal submandibular (R), normal supraclavicular (L), normal supraclavicular ( R), normal axillary (L), normal axillary (R), normal inguinal (L), normal inguinal (R), normal other Diann Silver MD Feb 26, 2018 23:44
[2018-02-27] MEDS: Vancomycin 500 MG in D5W 110 ML IVPB SCH ×2 (01:22→13:22)
[2018-02-27] MEDS: Albuterol/Ipratropium 3ml neb HHN SCH ×5 (03:12→19:31)
[2018-02-27] MEDS: Meropenem 1 GM in NS 55 ML IVPB SCH (03:14)
[2018-02-27 04:00] VITALS: BP 101/56
[2018-02-27] MEDS: NovoLOG Insulin Flexpen SUBQ SCH ×3 (06:41→17:37)
[2018-02-27] MEDS: Heparin 5000 units/ml inj SUBQ SCH ×2 (06:42→13:25)
[2018-02-27 08:00] VITALS: BP 132/72
[2018-02-27] MEDS: levETIRAcetam 500mg/5ml Liquid NG SCH (10:49)
[2018-02-27] MEDS: Tums 500mg GT SCH ×3 (10:49→17:36)
[2018-02-27] MEDS: Aspirin Baby 81mg NG SCH (10:49)
[2018-02-27] MEDS: Levothyroxine 125mcg tab NG SCH (10:49)
[2018-02-27] MEDS: Docusate 100mg/10ml Liq NG SCH ×2 (10:49→17:36)
[2018-02-27] MEDS: Metoprolol Tartrate 12.5mg TAB NG SCH (10:50)
[2018-02-27] MEDS: Triamcinolone 0.025% oint TOPIC SCH ×3 (10:51→17:38)
--- NOTE | 2018-02-27 11:23 | Infectious Diseases Prog Note ---
"Assessment/Plan Assessment/Plan antibiotics : vancomycin iv, meropenem A 1. MRSA | e.coli pneumonia 2. respiratory failure resolved 3. subdural hematoma 4. mental retardation 5. MRSA sepsis ? endocarditis 6. CVA 7. leucocytosis improving P 1. continue vancomycin iv 7 more days 2. d/c meropenem 3. will follow up cultures Subjective ROS Limited/Unobtainable: Yes Allergies: Coded Allergies: SULFA (SULFONAMIDE ANTIBIOTICS) (Verified Allergy, Unknown, 09/02/15) Objective Vital Signs Last 24 Hour Vital Signs Date Time Temp Pulse Resp B/P (MAP) Pulse Ox O2 Delivery O2 Flow Rate FiO2 02/27/18 11:15 76 20 100 Nasal Cannula 2.0 28 02/27/18 11:00 68 18 99 Nasal Cannula 2.0 28 02/27/18 10:50 77 132/72 02/27/18 09:00 Nasal Cannula 4.0 02/27/18 08:00 98.4 79 20 132/72 (92) 100 98.4 02/27/18 08:00 77 02/27/18 07:21 79 20 100 Nasal Cannula 2.0 28 02/27/18 07:13 Nasal Cannula 2.0 28 02/27/18 07:00 70 18 99 Nasal Cannula 2.0 28 02/27/18 07:00 98 Nasal Cannula 2.0 28 02/27/18 05:34 67 17 98 Facial 35 02/27/18 04:00 97.6 75 18 101/56 (71) 97 97.6 02/27/18 04:00 68 02/27/18 03:22 62 17 99 Bi-pap 35 02/27/18 03:15 61 20 97 Facial 35 02/27/18 03:10 61 17 96 Bi-pap 35 02/27/18 01:54 62 17 Bi-pap 35 02/27/18 01:05 63 21 99 Facial 35 02/27/18 00:00 65 02/26/18 23:42 98.1 73 17 99/58 (72) 95 98.1 02/26/18 23:14 71 18 99 Nasal Cannula 3.0 32 02/26/18 23:14 69 19 98 Facial 35 02/26/18 23:03 69 20 97 Nasal Cannula 3.0 32 02/26/18 21:22 69 95/50 02/26/18 21:00 Nasal Cannula 4.0 02/26/18 20:00 73 02/26/18 20:00 97.9 69 18 95/50 (65) 96 97.9 02/26/18 19:31 77 20 100 Nasal Cannula 3.0 32 02/26/18 19:23 98 Nasal Cannula 3.0 32 02/26/18 19:23 Nasal Cannula 3.0 32 02/26/18 19:21 65 20 98 Nasal Cannula 3.0 32 02/26/18 16:00 65 02/26/18 16:00 98.1 119 20 114/61 (78) 98 98.1 02/26/18 15:12 73 20 99 Nasal Cannula 3.0 32 02/26/18 15:01 76 20 99 Nasal Cannula 3.0 32 02/26/18 12:00 97.9 85 20 121/67 (85) 98 97.9 02/26/18 12:00 78 Height (Feet): 5 Height (Inches): 5.00 Weight (Pounds): 110 Respiratory/Chest: lungs clear Cardiovascular: normal rate, regular rhythm, no gallop/murmur Abdomen: soft, non tender, other - GT Extremities: no edema Skin: rash - erythematous on legs, left arm PICC Current Medications Medications (Trade) Dose Ordered Sig/Eddy Route PRN Reason Start Time Stop Time Status Last Admin Dose Admin Acetaminophen (Tylenol) 650 mg Q6H PRN NG Mild Pain/Temp > 100.5 02/11/18 18:18 03/12/18 18:17 02/19/18 03:50 Acetylcysteine (Mucomyst) 100 mg Q4HRT N 02/21/18 19:00 03/23/18 18:59 02/27/18 11:00 Albuterol/ Ipratropium (Albuterol/ Ipratropium) 3 ml Q4HRT [facility] 02/23/18 11:00 02/28/18 10:59 02/27/18 11:00 Aspirin (ASA) 81 mg DAILY NG 02/12/18 09:00 03/14/18 08:59 02/27/18 10:49 Atorvastatin Calcium (Lipitor) 10 mg BEDTIME NG 02/11/18 21:00 03/09/18 20:59 02/26/18 21:22 Calcium Carbonate (Tums) 500 mg THREE TIMES A DAY GT 02/12/18 09:00 03/09/18 08:59 02/27/18 10:49 Chlorhexidine Gluconate (Tesha-Hex 2%) 1 applic DAILY@1999 TOPIC 02/19/18 20:00 03/21/18 19:59 02/26/18 21:22 Clotrimazole (Lotrimin) 1 applic THREE TIMES A DAY TOPIC 02/26/18 18:00 03/28/18 17:59 02/27/18 10:51 Dextrose (Dextrose 50%) 25 ml Q30M PRN IV Hypoglycemia 02/22/18 16:15 03/24/18 16:14 Dextrose (Dextrose 50%) 50 ml Q30M PRN IV hypoglycemia 02/27/18 10:30 03/29/18 10:29 Docusate Sodium (Colace) 100 mg TWICE A DAY NG 02/12/18 09:00 03/13/18 08:59 02/27/18 10:49 Guaifenesin (Robitussin) 100 mg Q4H PRN NG For Cough 02/13/18 13:45 03/14/18 18:14 Heparin Sodium (Porcine) (Heparin 5000 units/ml) 5,000 units EVERY 8 HOURS SUBQ 02/23/18 14:00 03/25/18 13:59 02/27/18 06:42 Insulin Aspart (NovoLOG) BEFORE MEALS AND HS SUBQ 02/22/18 16:30 03/24/18 16:29 02/27/18 06:41 Lansoprazole (Prevacid) 30 mg DAILY NG 02/25/18 09:00 03/27/18 08:59 02/27/18 10:50 Levetiracetam (Keppra) 1,000 mg Q12HR NG 02/16/18 21:00 03/18/18 20:59 02/27/18 10:49 Levothyroxine Sodium (Synthroid) 125 mcg DAILY NG 02/17/18 09:00 03/19/18 08:59 02/27/18 10:49 Magnesium Hydroxide (Mom) 30 ml HSPRN PRN NG Constipation 02/11/18 21:00 03/09/18 20:59 Metoprolol Tartrate (Lopressor) 5 mg Q4H PRN IVP hr>130 02/11/18 18:19 03/09/18 18:18 Metoprolol Tartrate (Lopressor) 12.5 mg Q12HR NG 02/11/18 21:00 03/09/18 08:59 02/27/18 10:50 Olanzapine (ZyPREXA) 5 mg DAILY@2100 NG 02/11/18 21:00 03/12/18 20:59 02/26/18 21:22 Sodium Chloride 1,000 ml @ 50 mls/hr Q20H IV 02/22/18 12:00 03/24/18 11:59 02/26/18 17:33 Triamcinolone Acetonide (Kenalog 0.025% Oint) 1 applic THREE TIMES A DAY TOPIC 02/14/18 18:00 03/16/18 17:59 02/27/18 10:51 Vancomycin HCl (Vanco rx to dose) 1 ea DAILY PRN MISC PER PHARMACY 02/12/18 09:00 03/09/18 07:29 Vancomycin HCl 500 mg/Dextrose 110 ml @ 110 mls/hr Q12HR@0100,1300 IVPB 02/22/18 13:00 03/06/18 12:59 02/27/18 01:22 Robbie Johnston MD Feb 27, 2018 11:23"
[2018-02-27 12:00] VITALS: BP 125/74
[2018-02-27] MEDS ORDERED: NS 110ml ONE (15:17)
[2018-02-27] MEDS ORDERED: Tubing IV Secondary IV ONE ×2 (15:17→18:16)
--- NOTE | 2018-02-27 15:28 | Pulmonology Progress Note ---
Assessment/Plan Problems: (1) Pneumonia (2) Sepsis (3) Congenital heart disease, adult (4) Down syndrome (5) Mental retardation (6) Anxiety Assessment/Plan ASSESSMENT: The patient is a 67-year-old male with a history of mental retardation and chronic subdural hematomas, recently admitted to [facility] with tracheobronchitis and poor mucociliary clearance, now presenting with dehydration, mild troponin elevation, acute kidney injury, and possible right infrahilar infiltrate. PROBLEM LIST: 1. Respiratory failure 2. Right perihilar infiltrate, healthcare-associated pneumonia. 3. MRSA sepsis and pneumonia 4. Acute kidney injury, likely dehydration. 5. Mild troponin elevation, likely demand ischemia. 6. History of recurrent aspiration pneumonia in the past. 7. Chronic subdural hematoma. 8. Mental retardation. 9. Hypothyroidism. 10. Chronic right bundle-branch block. 11. Acute on chronic CVA 12. Elevated D-dimer with negative Duplex and VQ 13. Dysphagia S/P PEG TREATMENT PLAN: 1. Monitor respiratory status 2. BiPAP PRN and qHS 3. Titrate down FiO2 to keep SaO2 > 90%. 4. RTC and PRN HHN's, CPT ---> D/W RT will add CPT VIA VEST 5. Mucomyst HHN's 6. Abx per ID, F/U Cx's 7. NPO, GTF's 8. Monitor volumes 9. Hep SQ for DVT Px 10. FC Subjective Allergies: Coded Allergies: SULFA (SULFONAMIDE ANTIBIOTICS) (Verified Allergy, Unknown, 09/02/15) Subjective AFVSS, O2 needs stable, no distress, secretions unchnaged, no F/C Objective Last 24 Hour Vital Signs Date Time Temp Pulse Resp B/P (MAP) Pulse Ox O2 Delivery O2 Flow Rate FiO2 02/27/18 15:11 70 20 100 Nasal Cannula 2.0 28 02/27/18 14:55 62 20 96 Nasal Cannula 2.0 28 02/27/18 12:00 72 02/27/18 12:00 98.2 74 19 125/74 (91) 98 98.2 02/27/18 11:15 76 20 100 Nasal Cannula 2.0 28 02/27/18 11:00 68 18 99 Nasal Cannula 2.0 28 02/27/18 10:50 77 132/72 02/27/18 09:00 Nasal Cannula 4.0 02/27/18 08:00 98.4 79 20 132/72 (92) 100 98.4 02/27/18 08:00 77 02/27/18 07:21 79 20 100 Nasal Cannula 2.0 28 02/27/18 07:13 Nasal Cannula 2.0 28 02/27/18 07:00 70 18 99 Nasal Cannula 2.0 28 02/27/18 07:00 98 Nasal Cannula 2.0 28 02/27/18 05:34 67 17 98 Facial 35 02/27/18 04:00 97.6 75 18 101/56 (71) 97 97.6 02/27/18 04:00 68 02/27/18 03:22 62 17 99 Bi-pap 35 02/27/18 03:15 61 20 97 Facial 35 02/27/18 03:10 61 17 96 Bi-pap 35 02/27/18 01:54 62 17 Bi-pap 35 02/27/18 01:05 63 21 99 Facial 35 02/27/18 00:00 65 02/26/18 23:42 98.1 73 17 99/58 (72) 95 98.1 02/26/18 23:14 71 18 99 Nasal Cannula 3.0 32 02/26/18 23:14 69 19 98 Facial 35 02/26/18 23:03 69 20 97 Nasal Cannula 3.0 32 02/26/18 21:22 69 95/50 02/26/18 21:00 Nasal Cannula 4.0 02/26/18 20:00 73 02/26/18 20:00 97.9 69 18 95/50 (65) 96 97.9 02/26/18 19:31 77 20 100 Nasal Cannula 3.0 32 02/26/18 19:23 98 Nasal Cannula 3.0 32 02/26/18 19:23 Nasal Cannula 3.0 32 02/26/18 19:21 65 20 98 Nasal Cannula 3.0 32 02/26/18 16:00 65 02/26/18 16:00 98.1 119 20 114/61 (78) 98 98.1 Intake and Output 02/26/18 02/27/18 19:00 07:00 Intake Total 600 ml Output Total 1000 ml Balance -400 ml IV Total 600 ml Output Urine Total 1000 ml # Voids 4 General Appearance: cachetic HEENT: normocephalic, atraumatic, anicteric, mucous membranes moist Respiratory/Chest: chest wall non-tender, rhonchi Cardiovascular: normal peripheral pulses, normal rate, regular rhythm Abdomen: normal bowel sounds, soft, non tender, no organomegaly, non distended , no mass Extremities: no cyanosis, no clubbing, no edema Current Medications Medications (Trade) Dose Ordered Sig/Eddy Route PRN Reason Start Time Stop Time Status Last Admin Dose Admin Acetaminophen (Tylenol) 650 mg Q6H PRN NG Mild Pain/Temp > 100.5 02/11/18 18:18 03/12/18 18:17 02/19/18 03:50 Acetylcysteine (Mucomyst) 100 mg Q4HRT [facility] 02/21/18 19:00 03/23/18 18:59 02/27/18 15:02 Albuterol/ Ipratropium (Albuterol/ Ipratropium) 3 ml Q4HRT [facility] 02/23/18 11:00 02/28/18 10:59 02/27/18 15:02 Aspirin (ASA) 81 mg DAILY NG 02/12/18 09:00 03/14/18 08:59 02/27/18 10:49 Atorvastatin Calcium (Lipitor) 10 mg BEDTIME NG 02/11/18 21:00 03/09/18 20:59 02/26/18 21:22 Calcium Carbonate (Tums) 500 mg THREE TIMES A DAY GT 02/12/18 09:00 03/09/18 08:59 02/27/18 13:25 Chlorhexidine Gluconate (Tesha-Hex 2%) 1 applic DAILY@1999 TOPIC 02/19/18 20:00 03/21/18 19:59 02/26/18 21:22 Clotrimazole (Lotrimin) 1 applic THREE TIMES A DAY TOPIC 02/26/18 18:00 03/28/18 17:59 02/27/18 13:22 Dextrose (Dextrose 50%) 25 ml Q30M PRN IV Hypoglycemia 02/22/18 16:15 03/24/18 16:14 Dextrose (Dextrose 50%) 50 ml Q30M PRN IV hypoglycemia 02/27/18 10:30 03/29/18 10:29 Docusate Sodium (Colace) 100 mg TWICE A DAY NG 02/12/18 09:00 03/13/18 08:59 02/27/18 10:49 Guaifenesin (Robitussin) 100 mg Q4H PRN NG For Cough 02/13/18 13:45 03/14/18 18:14 Heparin Sodium (Porcine) (Heparin 5000 units/ml) 5,000 units EVERY 8 HOURS SUBQ 02/23/18 14:00 03/25/18 13:59 02/27/18 13:25 Insulin Aspart (NovoLOG) BEFORE MEALS AND HS SUBQ 02/22/18 16:30 03/24/18 16:29 02/27/18 11:58 Lansoprazole (Prevacid) 30 mg DAILY NG 02/25/18 09:00 03/27/18 08:59 02/27/18 10:50 Levetiracetam (Keppra) 1,000 mg Q12HR NG 02/16/18 21:00 03/18/18 20:59 02/27/18 10:49 Levothyroxine Sodium (Synthroid) 125 mcg DAILY NG 02/17/18 09:00 03/19/18 08:59 02/27/18 10:49 Magnesium Hydroxide (Mom) 30 ml HSPRN PRN NG Constipation 02/11/18 21:00 03/09/18 20:59 Metoprolol Tartrate (Lopressor) 5 mg Q4H PRN IVP hr>130 02/11/18 18:19 03/09/18 18:18 Metoprolol Tartrate (Lopressor) 12.5 mg Q12HR NG 02/11/18 21:00 03/09/18 08:59 02/27/18 10:50 Olanzapine (ZyPREXA) 5 mg DAILY@2100 NG 02/11/18 21:00 03/12/18 20:59 02/26/18 21:22 Sodium Chloride 1,000 ml @ 50 mls/hr Q20H IV 02/22/18 12:00 03/24/18 11:59 02/27/18 12:01 Triamcinolone Acetonide (Kenalog 0.025% Oint) 1 applic THREE TIMES A DAY TOPIC 02/14/18 18:00 03/16/18 17:59 02/27/18 13:22 Vancomycin HCl (Vanco rx to dose) 1 ea DAILY PRN MISC PER PHARMACY 02/12/18 09:00 03/09/18 07:29 Vancomycin HCl 500 mg/Dextrose 110 ml @ 110 mls/hr Q12HR@0100,1300 IVPB 02/22/18 13:00 03/06/18 12:59 02/27/18 13:22 Sae Forrest MD Feb 27, 2018 15:28
[2018-02-27 16:00] VITALS: BP 100/49
--- NOTE | 2018-02-27 16:25 | General Progress Note ---
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 - mild hypnatremia - etiology - pneumonitis - failed swallow - s/p PEG - h/o CHF - Fever and Leukocytosis - resolved Recommendations - Continue TF - free water restriction - Abx - optimize pulmonary parameters - d/c planning Subjective Allergies: Coded Allergies: SULFA (SULFONAMIDE ANTIBIOTICS) (Verified Allergy, Unknown, 09/02/15) Subjective tolerating TF NAD comfortable d/w staff nurse icu resource team no events overnight Objective Last 24 Hour Vital Signs Date Time Temp Pulse Resp B/P (MAP) Pulse Ox O2 Delivery O2 Flow Rate FiO2 02/27/18 15:11 70 20 100 Nasal Cannula 2.0 28 02/27/18 14:55 62 20 96 Nasal Cannula 2.0 28 02/27/18 12:00 72 02/27/18 12:00 98.2 74 19 125/74 (91) 98 98.2 02/27/18 11:15 76 20 100 Nasal Cannula 2.0 28 02/27/18 11:00 68 18 99 Nasal Cannula 2.0 28 02/27/18 10:50 77 132/72 02/27/18 09:00 Nasal Cannula 4.0 02/27/18 08:00 98.4 79 20 132/72 (92) 100 98.4 02/27/18 08:00 77 02/27/18 07:21 79 20 100 Nasal Cannula 2.0 28 02/27/18 07:13 Nasal Cannula 2.0 28 02/27/18 07:00 70 18 99 Nasal Cannula 2.0 28 02/27/18 07:00 98 Nasal Cannula 2.0 28 02/27/18 05:34 67 17 98 Facial 35 02/27/18 04:00 97.6 75 18 101/56 (71) 97 97.6 02/27/18 04:00 68 02/27/18 03:22 62 17 99 Bi-pap 35 02/27/18 03:15 61 20 97 Facial 35 02/27/18 03:10 61 17 96 Bi-pap 35 02/27/18 01:54 62 17 Bi-pap 35 02/27/18 01:05 63 21 99 Facial 35 02/27/18 00:00 65 02/26/18 23:42 98.1 73 17 99/58 (72) 95 98.1 02/26/18 23:14 71 18 99 Nasal Cannula 3.0 32 02/26/18 23:14 69 19 98 Facial 35 02/26/18 23:03 69 20 97 Nasal Cannula 3.0 32 02/26/18 21:22 69 95/50 02/26/18 21:00 Nasal Cannula 4.0 02/26/18 20:00 73 02/26/18 20:00 97.9 69 18 95/50 (65) 96 97.9 02/26/18 19:31 77 20 100 Nasal Cannula 3.0 32 02/26/18 19:23 98 Nasal Cannula 3.0 32 02/26/18 19:23 Nasal Cannula 3.0 32 02/26/18 19:21 65 20 98 Nasal Cannula 3.0 32 Intake and Output 02/26/18 02/27/18 19:00 07:00 Intake Total 600 ml Output Total 1000 ml Balance -400 ml IV Total 600 ml Output Urine Total 1000 ml # Voids 4 Height (Feet): 5 Height (Inches): 5.00 Weight (Pounds): 110 Objective WDWN WM NCAT supple Chest b/l Ronchi RR abd soft ND, (+) PEG no edema OBS Michael Estevez MD Feb 27, 2018 16:25
--- NOTE | 2018-02-27 17:52 | Cardiology Progress Note ---
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 pneumonia arf hs of svt chronic subdural hematoma eczema all bc neg no fevers contienu abx per id to marcelo soon Subjective ROS Limited/Unobtainable: Yes Subjective appear calm and dry no sig cough during my evaluation Objective Last 24 Hour Vital Signs Date Time Temp Pulse Resp B/P (MAP) Pulse Ox O2 Delivery O2 Flow Rate FiO2 02/27/18 16:00 98.5 71 18 100/49 (66) 98 98.5 02/27/18 16:00 73 02/27/18 15:11 70 20 100 Nasal Cannula 2.0 28 02/27/18 14:55 62 20 96 Nasal Cannula 2.0 28 02/27/18 12:00 72 02/27/18 12:00 98.2 74 19 125/74 (91) 98 98.2 02/27/18 11:15 76 20 100 Nasal Cannula 2.0 28 02/27/18 11:00 68 18 99 Nasal Cannula 2.0 28 02/27/18 10:50 77 132/72 02/27/18 09:00 Nasal Cannula 4.0 02/27/18 08:00 98.4 79 20 132/72 (92) 100 98.4 02/27/18 08:00 77 02/27/18 07:21 79 20 100 Nasal Cannula 2.0 28 02/27/18 07:13 Nasal Cannula 2.0 28 02/27/18 07:00 70 18 99 Nasal Cannula 2.0 28 02/27/18 07:00 98 Nasal Cannula 2.0 28 02/27/18 05:34 67 17 98 Facial 35 02/27/18 04:00 97.6 75 18 101/56 (71) 97 97.6 02/27/18 04:00 68 02/27/18 03:22 62 17 99 Bi-pap 35 02/27/18 03:15 61 20 97 Facial 35 02/27/18 03:10 61 17 96 Bi-pap 35 02/27/18 01:54 62 17 Bi-pap 35 02/27/18 01:05 63 21 99 Facial 35 02/27/18 00:00 65 02/26/18 23:42 98.1 73 17 99/58 (72) 95 98.1 02/26/18 23:14 71 18 99 Nasal Cannula 3.0 32 02/26/18 23:14 69 19 98 Facial 35 02/26/18 23:03 69 20 97 Nasal Cannula 3.0 32 02/26/18 21:22 69 95/50 02/26/18 21:00 Nasal Cannula 4.0 02/26/18 20:00 73 02/26/18 20:00 97.9 69 18 95/50 (65) 96 97.9 02/26/18 19:31 77 20 100 Nasal Cannula 3.0 32 02/26/18 19:23 98 Nasal Cannula 3.0 32 02/26/18 19:23 Nasal Cannula 3.0 32 02/26/18 19:21 65 20 98 Nasal Cannula 3.0 32 General Appearance: no apparent distress Intake and Output 02/26/18 02/27/18 19:00 07:00 Intake Total 600 ml Output Total 1000 ml Balance -400 ml IV Total 600 ml Output Urine Total 1000 ml # Voids 4 Amos Sue MD Feb 27, 2018 17:52
[2018-02-27] MEDS ORDERED: Sterile Water Irrig 1000ml IRRIG ONE (18:16)
--- NOTE | 2018-02-27 19:26 | Cardiology Report ---
APPROVED REPORT EXAM: Two-dimensional and M-mode echocardiogram with Doppler and color Doppler. INDICATION BUNDLE BRANCH BLOCK M-Mode DIMENSIONS IVSd1.6 (0.7-1.1cm)Left Atrium (MM)2.4 (1.6-4.0cm) LVDd3.3 (3.5-5.6cm)Aortic Root2.8 (2.0-3.7cm) PWd1.4 (0.7-1.1cm)Aortic Cusp Exc.1.7 (1.5-2.0cm) IVSs1.7 cm LVDs1.9 (2.5-4.0cm) PWs1.5 cm Normal left ventricular chamber size, systolic function and wall motion. Left ventricular ejection fraction estimated to be 60-65 %. Moderate left ventricular hypertrophy by 2-D. Trivial pericardial effusion . All other cardiac chamber sizes are within normal limits . Focal aortic valve sclerosis with normal cusp excursion. Thickened mitral valve leaflets with normal excursion. Mildly mitral annulus and aortic root calcification. Pulmonic valve not well visualized. Normal tricuspid valve structure. no evidence for endocarditis A color flow and spectral Doppler study was performed and revealed: No aortic insufficiency. Trace mitral regurgitation. Normal left ventricular diastolic function . Mild tricuspid regurgitation. Tricuspid systolic velocities suggests peak right ventricular systolic pressure of 42 mmHg,consistent with mild pulmonary hypertension. Mild pulmonic regurgitation present .
[2018-02-27 20:00] VITALS: BP 121/64
[2018-02-27] MEDS ORDERED: Dyna-Hex 2% Top Sol 2oz TOPIC SCH (20:00)
--- NOTE | 2018-03-01 17:24 | Discharge Summary ---
Discharge Summary Discharge Summary _ DATE OF ADMISSION: 02/07/2018 DATE OF DISCHARGE: 02/27/2018 CONSULTANTS: Dr. Sae Johnston BRIEF HOSPITAL COURSE: Patient is a 67-year-old male, with history of mental retardation and chronic subdural hematoma, had recent hospitalization at [facility], discharged to [facility], was noted to have labored breathing at the intermediate. He was then transported via EMS to [facility] for further evaluation. Patient was admitted to [facility] due to upper respiratory infection versus tracheobronchitis/early pneumonia. He was initially treated with antibiotics, however, given negative pro calcitonin and no infiltrates on x-ray and afebrile , he was taken off antibiotics. Biggest issue was felt to be due to mucociliary clearance. He was given DuoNeb and chest physiotherapy and was discharged back to the facility. CODE STATUS was confirmed with the [facility] and it was determined that the patient should remain full code. On evaluation at ED, patient was in respiratory distress. He was initially on nonrebreather, but was noted to be hypoxemic. Chest x-ray showed possible right lower lobe infiltrate. He was then started on BiPAP support. WBC was 11. Hemoglobin and hematocrit were stable. Creatinine 1.6, BUN 20. Lactic acid was 2.7 and troponin was elevated to 0.065. He was then admitted for evaluation of respiratory failure, possibly secondary to pneumonia, possible sepsis, for evaluation of acute kidney injury and elevated troponin. He was admitted to [facility]. He was continued on BiPAP support. He was placed on NPO. He was started empirically on IV vancomycin and Zosyn. He was given continuous breathing treatment and frequent suctioning. Cardiac troponin was monitored. He was placed on heparin subcutaneous for DVT prophylaxis. Venous duplex of lower extremity was negative for DVT. He continued to be less responsive. MRI of the brain was ordered and showed positive acute left cerebellar deep white matter infarct. There was ventriculomegaly and enlargement of the extra axial CSF consistent with cerebral volume loss, evidence of old left parietal cortical infarct, negative for acute intracranial bleed or mass effect. Carotid duplex ultrasound was without any significant plaques. Blood culture showed growth of Staphylococcus aureus MRSA. He was closely followed by infectious disease specialist. Patient has MRSA sepsis with consideration of possible endocarditis. Will need prolonged IV antibiotics. Sputum culture showed growth of MRSA/Escherichia coli. Zosyn was eventually discontinued, he was given vancomycin. He was continued on BiPAP support. D-dimer was 1.9. V/Q scan showed low probability for PE. Cardiac troponin was initially elevated. Elevation likely secondary to demand ischemia. EKG did not show any acute changes. Echocardiogram done showed normal left ventricular systolic function. Subsequent troponins normalized. He failed swallow evaluation. NG tube was inserted. Tube feeding was eventually started. Patient was placed on strict aspiration precautions. Patient will need PEG tube placement. Consent was obtained for PEG. He was noted to have bleeding upon suctioning. Patient was noted to have epistaxis. On 02/16/2018, he underwent fiberoptic laryngoscopy. NGT was in the esophagus per fiberoptic laryngoscopy and vocal cords had normal anatomy, however, did not move well. Blood from suctioning most probably from inability to swallow secondary to CVA; suctioning of secretions lead to bleeding. He was scheduled to undergo PEG tube placement on 02/19/2018, however, procedure was canceled as patient developed fever and had increased in leukocytosis. Femoral line was discontinued. PICC line was inserted to the left upper extremity. Tube feeding was placed on hold. Patient on Vancomycin and Meropenem. He eventually defervesced. On 02/22/2018, he finally underwent upper gastrointestinal endoscopy with enteroscopy and biopsy as well as G-tube placement. He was eventually started on G-tube feedings. Biopsy showed chronic gastritis, no evidence of H. pylori. Repeat blood culture did not isolate any growth. Repeat echocardiogram showed an mitral valve leaflets with normal excursion. EF normal. Chest x-ray on 2017 showed basilar/perihilar infiltrates with mild central edema. He was given spot diuresis. Meropenem was discontinued. Advised to continue IV vancomycin. He was eventually transferred to [facility] to continue antibiotic treatment. FINAL DIAGNOSES: MRSA sepsis and pneumonia, possible endocarditis Shortness of breath, with right perihilar infiltrate, healthcare associated pneumonia Acute respiratory failure requiring BiPAP Acute left cerebellar infarction Acute kidney injury Elevated troponin, possibly from demand ischemia Developmental delay Dysphagia requiring PEG tube insertion on 02/22/2018 Hypokalemia Epistaxis status post laryngoscopy Chronic subdural hematoma Eczema Old left parietal infarct Mild hypernatremia Mental retardation Downs syndrome Anxiety Hypothyroidism Chronic right bundle branch block Elevated d-dimer with negative duplex and V/Q scan Congenital heart disease possible corrected endocardial cushion defect DISPOSITION: Patient was transferred to [facility]. I have been assigned to dictate discharge summary on this account, and I was not involved in the patient's management. Natalia Greenberg NP Mar 01, 2018 17:24
== END 2018-02-27 21:00 | DRG 871 ==
LOC: EDBD 00:57 → EMR 01:22 → EDBEDREQ 02:50 → 2W 02:54 → EDBEDREQ 03:01 → 2W 03:39 → 2E 02-11 18:20
PROC: 0CJS8ZZ Inspection of Larynx, Via Natural or Artificial Opening Endoscopic (ICD-10-PCS; principal; 2018-02-16)
PROC: B518ZZA Fluoroscopy of Superior Vena Cava, Guidance (ICD-10-PCS; 2018-02-19)
PROC: 02HV33Z Insertion of Infusion Device into Superior Vena Cava, Percutaneous Approach (ICD-10-PCS; 2018-02-19)
PROC: 0DB78ZX Excision of Stomach, Pylorus, Via Natural or Artificial Opening Endoscopic, Diagnostic (ICD-10-PCS; 2018-02-22)
PROC: 0DH63UZ Insertion of Feeding Device into Stomach, Percutaneous Approach (ICD-10-PCS; 2018-02-22)
DX: A41.02 Sepsis due to Methicillin resistant Staphylococcus aureus (principal); J15.212 Pneumonia due to Methicillin resistant Staphylococcus aureus; J15.5 Pneumonia due to Escherichia coli; I62.03 Nontraumatic chronic subdural hemorrhage; I63.81 Other cerebral infarction due to occlusion or stenosis of small artery; S27.812A Contusion of esophagus (thoracic part), initial encounter; J96.01 Acute respiratory failure with hypoxia; N17.9 Acute kidney failure, unspecified; I24.8 Other forms of acute ischemic heart disease; Q21.2 Atrioventricular septal defect; E87.0 Hyperosmolality and hypernatremia; Q90.9 Down syndrome, unspecified; R13.10 Dysphagia, unspecified; I50.9 Heart failure, unspecified; L30.9 Dermatitis, unspecified; E03.9 Hypothyroidism, unspecified; E86.0 Dehydration; I45.10 Unspecified right bundle-branch block; G40.909 Epilepsy, unspecified, not intractable, without status epilepticus; J42 Unspecified chronic bronchitis; K29.70 Gastritis, unspecified, without bleeding; X50.3XXA Overexertion from repetitive movements, initial encounter; Y92.230 Patient room in hospital as the place of occurrence of the external cause
CPT/HCPCS: 36415; 36569; 36600; 70551; 71045; 74018; 76937; 78579; 78580; 80048; 80053; 80202; 81003; 82550; 82553; 82803; 82962; 83036; 83605; 83735; 83880; 84100; 84484; 85007; 85025; 85379; 85610; 85730; 87040; 87070; 87081; 87181; 87205; 93005; 93306; 93880; 93970; 94003; 94150; 94640; 94660; 94664; 94760; 96360; 99285; A9503; J1815; J7620

== ENCOUNTER 2018-05-25 20:36 | Inpatient (IN) | payer MEDICARE, MEDICAID ==
[~2018-05-25] VITALS: Ht 172.7 cm; Wt 49.0 kg
[~2018-05-25 20:36] MED LIST changes: +COLACE100 MG ORAL; +IPRAT-ALBUT 0.5-3 ML IH; +LEVETIRACETAM500 MG ORAL; +LEVOTHYROXINE125 MCG ORAL; +METOPROLOL SUCC25 MG ORAL; +MIRALAX17 G2 ORAL; +PRAVASTATIN SOD20 M1 ORAL
[2018-05-25] MEDS ORDERED: Sodium Chloride 500ML 500 ML IV ONE (21:13)
[2018-05-25 21:15] VITALS: BP 86/43
--- NOTE | 2018-05-25 21:15 | NUR ---
ED Nurse Note: Patient BIBA from [facility]. Per facility patient was discharged from [facility]. Patient BP was 86/43 at facility and called 911 for hypotension. Patient is non verbal, non ambulatory. Crackles in all lobes bilaterally. Patient seen by SHAUND at bedside.
[2018-05-25 21:51] LABS: BASOPHILS % (AUTO) 1.3 % (0.0-2.0); EOSINOPHILS % (AUTO) 4.7 % (0.0-3.0); HEMATOCRIT 42.7 % (42.0-52.0); HEMOGLOBIN 13.7 G/DL (14.2-18.0); LYMPHOCYTES % (AUTO) 16.9 % (20.0-45.0); MEAN CORPUSCULAR VOLUME 99 FL (80-99); MONOCYTES % (AUTO) 9.1 % (1.0-10.0); NEUTROPHILS % (AUTO) 67.9 % (45.0-75.0); PLATELET COUNT 189 K/UL (150-450); RED BLOOD COUNT 4.31 M/UL (4.70-6.10); RED CELL DISTRIBUTION WIDTH 16.4 % (11.6-14.8); WHITE BLOOD COUNT 7.1 K/UL (4.8-10.8)
[2018-05-25 22:01] LABS: ANION GAP 7 mmol/L (5-15); BLOOD UREA NITROGEN 34 mg/dL (7-18); CALCIUM 11.1 MG/DL (8.5-10.1); CARBON DIOXIDE 34 MMOL/L (21-32); CHLORIDE 102 MMOL/L (98-107); CREATININE 1.2 MG/DL (0.55-1.30); POTASSIUM 4.4 MMOL/L (3.5-5.1); SODIUM 143 MMOL/L (136-145)
[2018-05-25 22:15] LABS: ALANINE AMINOTRANSFERASE 29 U/L (12-78); ALBUMIN 2.9 G/DL (3.4-5.0); ALBUMIN/GLOBULIN RATIO 0.6 (1.0-2.7); ALKALINE PHOSPHATASE 99 U/L (46-116); ASPARTATE AMINO TRANSFERASE 21 U/L (15-37); BILIRUBIN,TOTAL 0.4 MG/DL (0.2-1.0); CKMB 1.7 NG/ML (0.0-3.6); CREATINE KINASE 37 U/L (26-308)
[2018-05-25] MEDS ORDERED: Azithromycin 500 MG in NS 275 ML IV ONE (22:15)
[2018-05-25] MEDS ORDERED: Piperacillin/Tazobactam 3.375 GM in NS 110 ML IVPB ONE (22:15)
[2018-05-25 22:44] LABS: APPEARANCE,URINE CLOUDY; BILIRUBIN, URINE NEGATIVE (NEGATIVE); COLOR,URINE PALE YELLOW; GLUCOSE, URINE (UA) NEGATIVE (NEGATIVE); KETONES,URINE NEGATIVE (NEGATIVE); LEUKOCYTE ESTERASE ,URINE NEGATIVE (NEGATIVE); NITRITE,URINE NEGATIVE (NEGATIVE); PH,URINE 7 (4.5-8.0); PROTEIN,URINE NEGATIVE (NEGATIVE); UROBILINOGEN,URINE NORMAL MG/DL (0.0-1.0)
--- NOTE | 2018-05-25 23:00 | NUR ---
ED Nurse Note: Patient has periods of hypotensiveness. Patient placed in trendelenburg.
--- NOTE | 2018-05-25 23:45 | NUR ---
ED Nurse Note: Patient has wound on left heel. Picture taken and uploaded to computer.
--- NOTE | 2018-05-25 23:45 | Emergency Room Report ---
History of Present Illness General Chief Complaint: General Complaint Source: Medical Record, EMS Present Illness HPI 67-year-old male presents ED for evaluation. Patient brought in by EMS. Patient was discharged from [facility] today and [facility] However blood pressure was low and a transfer patient to hospital. Patient has MR and CHF. Was being treated for pneumonia. Afebrile. No shortness of breath. BP in triage 86/43. Unable to provide any additional history at this time. No signs of distress. No other aggravating relieving factors. Denies any other associated symptoms Allergies: Coded Allergies: SULFA (SULFONAMIDE ANTIBIOTICS) (Verified Allergy, Unknown, 09/02/15) Patient History Past Medical History: CHF, CVA/TIA - SDH, other - MR Past Surgical History: none Pertinent Family History: none Social History: Denies: smoking, alcohol use, drug use Immunizations: UTD Reviewed Nursing Documentation: PMH: Agreed; PSxH: Agreed Nursing Documentation-PMH Hx Cancer: No Hx Gastrointestinal Problems: Yes - Constipation Hx Neurological Problems: Yes - Subdural Hematoma Hx Seizures: Yes Hx Speech Problem: Yes - Difficulty speaking Hx Aphasia: Yes Hx Weakness: Yes - Bilateral lower extremities Review of Systems All Other Systems: limited Physical Exam Vital Signs Date Time Temp Pulse Resp B/P (MAP) Pulse Ox O2 Delivery O2 Flow Rate FiO2 05/25/18 20:38 97.5 62 18 86/43 96 Room Air Sp02 EP Interpretation: reviewed, normal General Appearance: no apparent distress, GCS 15, non-toxic, other - MR Head: normocephalic, atraumatic Eyes: bilateral eye normal inspection, bilateral eye PERRL ENT: hearing grossly normal, normal pharynx, no angioedema, normal voice Neck: full range of motion, supple/symm/no masses Respiratory: chest non-tender, crackles, speaking full sentences Cardiovascular #1: regular rate, rhythm, no edema Cardiovascular #2: 2+ carotid (R), 2+ carotid (L), 2+ radial (R), 2+ radial (L) , 2+ dorsalis pedis (R), 2+ dorsalis pedis (L) Gastrointestinal: normal bowel sounds, non tender, soft, non-distended, no guarding, no rebound Rectal: deferred Genitourinary: normal inspection, no CVA tenderness Musculoskeletal: back normal, gait/station normal, normal range of motion, non- tender Neurologic: other - MR Psychiatric: other - MR Reflexes: 3+ bicep (R), 3+ bicep (L), 3+ tricep (R), 3+ tricep (L), 3+ knee (R) , 3+ knee (L) Skin: normal color, no rash, warm/dry, well hydrated Lymphatic: no adenopathy Medical Decision Making Diagnostic Impression: Primary Impression: History of CHF (congestive heart failure) Additional Impressions: Mental retardation Pneumonia Qualified Codes: J18.1 - Lobar pneumonia, unspecified organism Hypotension Qualified Codes: I95.9 - Hypotension, unspecified ER Course Hospital Course 67 yo M presents to ED for hypotension. h/o MR. h/o CHF Differential diagnoses include: NE/unstable angina, contusion, muscle strain, PTX, rib fracture Clinical course Patient placed on stretcher. on cardiac specialist. After initial history and physical I ordered labs, EKG, chest x-ray, IVFs labs reviewed- no leukocytosis, hemoglobin/hematocrit stable, creatinine elevated, troponins negative, BNP elevated EKG - sinus bradycarda, no acute ischemic changes interpreted by me Chest x-ray- RLL infiltrate Initially hypotensive. Improved with small IV boluses. abx given Case discussed with Dr. Guillermo and he agreed to accept the patient to his service for further care and support I. I feel this is a highly complex case requiring extensive working including EKG/Rhythm strip, Xray/CT/US, Blood/urine lab work, repeat exams while in ED, and administration of strong opiates/narcotics for pain control, admission to hospital or close patient follow up. Diagnosis - CHF, MR, pneumonia, hypotension admitted to telemetry in serious condition Labs Test 05/25/18 21:36 05/25/18 22:20 White Blood Count 7.1 K/UL (4.8-10.8) Red Blood Count 4.31 M/UL (4.70-6.10) Hemoglobin 13.7 G/DL (14.2-18.0) Hematocrit 42.7 % (42.0-52.0) Mean Corpuscular Volume 99 FL (80-99) Mean Corpuscular Hemoglobin 31.8 PG (27.0-31.0) Mean Corpuscular Hemoglobin Concent 32.0 G/DL (32.0-36.0) Red Cell Distribution Width 16.4 % (11.6-14.8) Platelet Count 189 K/UL (150-450) Mean Platelet Volume 8.5 FL (6.5-10.1) Neutrophils (%) (Auto) 67.9 % (45.0-75.0) Lymphocytes (%) (Auto) 16.9 % (20.0-45.0) Monocytes (%) (Auto) 9.1 % (1.0-10.0) Eosinophils (%) (Auto) 4.7 % (0.0-3.0) Basophils (%) (Auto) 1.3 % (0.0-2.0) Sodium Level 143 MMOL/L (136-145) Potassium Level 4.4 MMOL/L (3.5-5.1) Chloride Level 102 MMOL/L (98-107) Carbon Dioxide Level 34 MMOL/L (21-32) Anion Gap 7 mmol/L (5-15) Blood Urea Nitrogen 34 mg/dL (7-18) Creatinine 1.2 MG/DL (0.55-1.30) Estimat Glomerular Filtration Rate > 60 mL/min (>60) Glucose Level 100 MG/DL (74-106) Lactic Acid Level 1.10 mmol/L (0.4-2.0) Calcium Level 11.1 MG/DL (8.5-10.1) Total Bilirubin 0.4 MG/DL (0.2-1.0) Aspartate Amino Transf (AST/SGOT) 21 U/L (15-37) Alanine Aminotransferase (ALT/SGPT) 29 U/L (12-78) Alkaline Phosphatase 99 U/L (46-116) Total Creatine Kinase 37 U/L (26-308) Creatine Kinase MB 1.7 NG/ML (0.0-3.6) Creatine Kinase MB Relative Index 4.5 Troponin I 0.048 ng/mL (0.000-0.056) Pro-B-Type Natriuretic Peptide 1062 pg/mL (0-125) Total Protein 8.1 G/DL (6.4-8.2) Albumin 2.9 G/DL (3.4-5.0) Globulin 5.2 g/dL Albumin/Globulin Ratio 0.6 (1.0-2.7) Urine Color Pale yellow Urine Appearance Cloudy Urine pH 7 (4.5-8.0) Urine Specific [place] 1.010 (1.005-1.035) Urine Protein Negative (NEGATIVE) Urine Glucose (UA) Negative (NEGATIVE) Urine Ketones Negative (NEGATIVE) Urine Blood Negative (NEGATIVE) Urine Nitrite Negative (NEGATIVE) Urine Bilirubin Negative (NEGATIVE) Urine Urobilinogen Normal MG/DL (0.0-1.0) Urine Leukocyte Esterase Negative (NEGATIVE) EKG Diagnostic Results Rate: bradycardiac Rhythm: NSR ST Segments: no acute changes ASA given to the pt in ED: No Rhythm Strip Diag. Results EP Interpretation: yes Rhythm: no PVC's, no ectopy Chest X-Ray Diagnostic Results Chest X-Ray Diagnostic Results : Chest X-Ray Ordered: Yes # of Views/Limited/Complete: 1 View Indication: Shortness of Breath EP Interpretation: Yes Interpretation: no pneumothorax, other - RLL infiltrate Impression: Other - PNA Electronically Signed by: Electronically signed by Timbo Quintanilla MD Last Vital Signs Date Time Temp Pulse Resp B/P (MAP) Pulse Ox O2 Delivery O2 Flow Rate FiO2 05/25/18 20:38 97.5 62 18 86/43 96 Room Air Status: improved Disposition: ADMITTED INPATIENT Condition: Serious Referrals: NON PHYSICIAN (PCP) Timbo Quintanilla MD May 25, 2018 23:45
[2018-05-26] VITALS (7 sets, daily range): BP systolic 85–105; BP diastolic 51–66
--- NOTE | 2018-05-26 01:15 | NUR ---
NURSE NOTES: Report received from CATALINA Abraham. Pt transferred to telemetry unit via [facility]. Applied monitoring coordinator. No belonging list. Sacral redness and left heel dti noted and will take picture. VS within normal range, BP 105/66, HR 65, RR 12, SaO2 100%, T 97.5. IV site on R FA intact and patent running NS at 100cc/hr. GT site intact and patent, Condom cathete intact and patent. Bed in the lowest position. Side rails up x3. Will continue to monitor.
--- NOTE | 2018-05-26 01:15 | NUR ---
ED Nurse Note: Patient transferred to telemetry unit. patient is non verbal, non ambulatory, no s/s of acute resp distress noted at this time. Patient BP is 96/52 at time of transfer. Patient report given to Mic RN at bedside. Patient transferred on [facility], connected to java j2ee architect, by care tech and staff home therapy rn. Patient had no personal belongings. Patient tolerated transfer well.
--- NOTE | 2018-05-26 02:00 | NUR ---
NURSE NOTES: Left message to regarding admission orders. Awaiting call back. Observed pt sleeping on the bed. No acute distress noted at this time. Will continue to monitor.
[2018-05-26] MEDS ORDERED: Albuterol/Ipratropium 3ml neb HHN PRN (05:45)
[2018-05-26] MEDS ORDERED: Bismuth Subsalicylate 30ml ORAL PRN (05:45)
--- NOTE | 2018-05-26 07:32 | NUR ---
HAND-OFF: Report given to CATALINA Colbert. Observed pt lying on the bed. No acute distress noted at this time.
--- NOTE | 2018-05-26 07:34 | NUR ---
NURSE NOTES: Received report from CATALINA Haile. Patient in bed sleeping opening eyes on verbal stimulus, no active s/s cardiac, respiratory distress noticed at this time. Patient on 2L oxygen via NC. No facial grimacing, moaning. G-tube dressing dry, intact. Condom catheter draining well to gravity. IV running at prescribed rate, IV site asymptomatic, intact, patent. Bed in lowest position, side rails up x3, call light within reach, bed alarm on. Will continue to monitor.
--- NOTE | 2018-05-26 08:55 | NUR ---
CASE MANAGEMENT: INITIAL REVIEW 67 YO M AGGIE FROM [facility] CC: LOW BP PMHx: CHF. CVA/TIA. APHASIA. SI:HYPOTENSIVE. SOB. T 97.5 HR 62 RR 18 B/P 86/43 SATS 96% ON RA CO2 34 BUN 34 CA 11.1 BNP 1062 IS: NS BOLUS X2 ZOSYN IV X1 AZITHROMYCIN IV X1 PATIENT ADMITTED TO TELE 05/25/2018 @ 9345 DCP: PATIENT TO BE DISCHARGED TO SNF ONCE MEDICALLY CLEARED. PLAN OF CARE: WOUND CARE 2D ECHO Addendum: 05/27/18 at 0840 by Priscilla Lynn INTERQUAL MET FOR ACUTE
[2018-05-26] MEDS: levETIRAcetam 500mg/5ml Liquid NG SCH ×2 (09:02→21:55)
[2018-05-26] MEDS: Aspirin Baby 81mg NG SCH (09:02)
[2018-05-26] MEDS: Docusate 100mg cap ORAL SCH (09:02)
--- NOTE | 2018-05-26 09:02 | Consultation ---
History of Present Illness General Date patient seen: May 26, 2018 Time patient seen: 07:30 Chief Complaint: General Complaint Referring physician: DR LUNA Reason for Consultation: pneumonia Present Illness HPI 67 years old male with past medical history of CHF, mitral regurgitation, subdural hematoma, seizure disorder, hypothyroidism, mentally challenged, was brought by paramedics from the residential facility due to hypotension Patient was just discharged from [facility], where he was treated for PNA. Upon evaluation afebrile, no shortness of breath, blood pressure 86/43. Patient nonverbal and was unable to provide any significant information. Laboratory workup revealed no leukocytosis , stable hemoglobin hematocrit. BUN 34 creatinine 1.2 Lactic acid 1.1 Troponin - 0.048. EKG revealed sinus bradycardia no acute ischemic changes. Pro BNP 1062. Albumin 2.9. Urinalysis no evidence of UTI. Chest x ray revealed evidence of right lower lobe infiltrate. Patient admitted for hypotension, pneumonia ,history of CHF. Allergies: Coded Allergies: SULFA (SULFONAMIDE ANTIBIOTICS) (Verified Allergy, Unknown, 09/02/15) Medication History Scheduled Aspirin Ec* (Aspirin Ec*), 81 MG ORAL DAILY, (Reported) Atorvastatin Calcium* (Atorvastatin Calcium*), 10 MG ORAL BEDTIME, (Reported) Bismuth Subsalicylate (Estelle Bismuth), 30 ML PO Q6HR, (Reported) Calcium Carbonate (Oyster Shell Calcium), 500 MG PO TID, (Reported) Clotrimazole (Clotrimazole), 30 GM TP PRN, (Reported) Denosumab (Prolia), 60 MG SUBQ EVERY 6 MONTHS, (Reported) Docusate Sodium* (Docusate Sodium*), 100 MG ORAL PRN, (Reported) Docusate Sodium* (Colace*), 100 MG ORAL DAILY, (Reported) Econazole Nitrate (Econazole Nitrate), 1 APPLIC TOP DAILY, (Reported) Guaifenesin/Dextromethorphan (Q-Tussin Dm Syrup), 10 ML PO Q6HR, (Reported) Levetiracetam* (Levetiracetam*), 500 MG ORAL TWICE A DAY, (Reported) Levothyroxine Sodium* (Levothyroxine Sodium*), 100 MCG ORAL DAILY, (Reported) Levothyroxine Sodium* (Levothyroxine Sodium*), 125 MCG ORAL DAILY, (Reported) Linaclotide (Linzess), 145 MCG PO DAILY, (Reported) Loratadine (Loratadine), 10 MG PO PRN, (Reported) Magnesium Hydroxide* (Milk Of Magnesia*), 15 ML ORAL PRN, (Reported) Metoprolol Succinate* (Metoprolol Succinate*), 12.5 MG ORAL DAILY, (Reported) Olanzapine* (Zyprexa*), 5 MG ORAL DAILY, (Reported) Polyethylene Glycol 3350* (Miralax*), 17 GM ORAL DAILY, (Reported) Pravastatin Sod* (Pravastatin Sod*), 20 MG ORAL BEDTIME, (Reported) Scheduled PRN Acetaminophen (Acetaminophen), 325 MG PO Q4HR PRN for For Pain, (Reported) Mineral Oil/Carrageenan (Kondremul Microemulsion), 2.5 ML PO BID PRN for Per rx protocol, (Reported) Miscellaneous Medications Ipratropium/Albuterol Sulfate (Iprat-Albut 0.5-3(2.5) Mg/3 Ml), 3 ML IH, ( Reported) Patient History History Provided By: EMS Healthcare decision maker Resuscitation status Full Code Advanced Directive on File No Past Medical/Surgical History Past Medical/Surgical History: (1) Hypotension (2) Hypothyroidism (3) Down syndrome (4) History of CHF (congestive heart failure) (5) Subdural hematoma, post-traumatic Review of Systems ROS Narrative unabel to ontain ROS due to mental status Physical Exam General Appearance: no apparent distress, cachetic Lines, tubes and drains: peripheral HEENT: normocephalic, atraumatic, anicteric, mucous membranes moist Neck: non-tender, supple Respiratory/Chest: lungs clear, no accessory muscle use Cardiovascular/Chest: normal rate - SR with some PAC , no JVD Abdomen: normal bowel sounds, non tender, soft Extremities: normal capillary refill Neurologic: alert - nonverbal Musculoskeletal: normal muscle bulk Last 24 Hour Vital Signs Date Time Temp Pulse Resp B/P (MAP) Pulse Ox O2 Delivery O2 Flow Rate FiO2 05/26/18 04:00 71 05/26/18 04:00 97.2 76 19 101/57 (72) 93 05/26/18 02:00 Nasal Cannula 2.0 05/26/18 02:00 97.5 65 12 105/66 (79) 100 05/26/18 01:15 97.5 63 18 96/52 100 Nasal Cannula 2.0 05/26/18 01:12 66 05/26/18 00:47 97.5 63 16 90/53 100 Nasal Cannula 2.0 05/25/18 21:15 62 18 Room Air 05/25/18 21:15 97.5 62 18 86/43 96 Room Air 05/25/18 20:38 97.5 62 18 86/43 96 Room Air Intake and Output 05/25/18 05/26/18 19:00 07:00 Intake Total 600 ml Output Total 300 ml Balance 300 ml Intake IV Total 600 ml Output Urine Total 300 ml # Voids 2 Laboratory Tests Test 05/25/18 21:36 05/25/18 22:20 05/26/18 08:34 White Blood Count 7.1 K/UL (4.8-10.8) Pending Red Blood Count 4.31 M/UL (4.70-6.10) L Pending Hemoglobin 13.7 G/DL (14.2-18.0) L Pending Hematocrit 42.7 % (42.0-52.0) Pending Mean Corpuscular Volume 99 FL (80-99) Pending Mean Corpuscular Hemoglobin 31.8 PG (27.0-31.0) H Pending Mean Corpuscular Hemoglobin Concent 32.0 G/DL (32.0-36.0) Pending Red Cell Distribution Width 16.4 % (11.6-14.8) H Pending Platelet Count 189 K/UL (150-450) Pending Mean Platelet Volume 8.5 FL (6.5-10.1) Pending Neutrophils (%) (Auto) 67.9 % (45.0-75.0) Pending Lymphocytes (%) (Auto) 16.9 % (20.0-45.0) L Pending Monocytes (%) (Auto) 9.1 % (1.0-10.0) Pending Eosinophils (%) (Auto) 4.7 % (0.0-3.0) H Pending Basophils (%) (Auto) 1.3 % (0.0-2.0) Pending Sodium Level 143 MMOL/L (136-145) Potassium Level 4.4 MMOL/L (3.5-5.1) Chloride Level 102 MMOL/L (98-107) Carbon Dioxide Level 34 MMOL/L (21-32) H Anion Gap 7 mmol/L (5-15) Blood Urea Nitrogen 34 mg/dL (7-18) H Creatinine 1.2 MG/DL (0.55-1.30) Estimat Glomerular Filtration Rate > 60 mL/min (>60) Glucose Level 100 MG/DL (74-106) Lactic Acid Level 1.10 mmol/L (0.4-2.0) Calcium Level 11.1 MG/DL (8.5-10.1) H Total Bilirubin 0.4 MG/DL (0.2-1.0) Aspartate Amino Transf (AST/SGOT) 21 U/L (15-37) Alanine Aminotransferase (ALT/SGPT) 29 U/L (12-78) Alkaline Phosphatase 99 U/L (46-116) Total Creatine Kinase 37 U/L (26-308) Creatine Kinase MB 1.7 NG/ML (0.0-3.6) Creatine Kinase MB Relative Index 4.5 Troponin I 0.048 ng/mL (0.000-0.056) Pending Pro-B-Type Natriuretic Peptide 1062 pg/mL (0-125) H Pending Total Protein 8.1 G/DL (6.4-8.2) Albumin 2.9 G/DL (3.4-5.0) L Globulin 5.2 g/dL Albumin/Globulin Ratio 0.6 (1.0-2.7) L Urine Color Pale yellow Urine Appearance Cloudy Urine pH 7 (4.5-8.0) Urine Specific [place] 1.010 (1.005-1.035) Urine Protein Negative (NEGATIVE) Urine Glucose (UA) Negative (NEGATIVE) Urine Ketones Negative (NEGATIVE) Urine Blood Negative (NEGATIVE) Urine Nitrite Negative (NEGATIVE) Urine Bilirubin Negative (NEGATIVE) Urine Urobilinogen Normal MG/DL (0.0-1.0) Urine Leukocyte Esterase Negative (NEGATIVE) Phosphorus Level Pending Magnesium Level Pending Height (Feet): 5 Height (Inches): 8.00 Weight (Pounds): 107 Medications Current Medications Medications (Trade) Dose Ordered Sig/Eddy Route PRN Reason Start Time Stop Time Status Last Admin Dose Admin Acetaminophen (Tylenol) 325 mg Q4H PRN ORAL Mild Pain/Temp > 100.5 05/26/18 05:45 06/25/18 05:44 Albuterol/ Ipratropium (Albuterol/ Ipratropium) 3 ml Q4H PRN HHN Shortness of Breath 05/26/18 05:45 05/31/18 05:44 Aspirin (ASA) 81 mg DAILY NG 05/26/18 09:00 06/25/18 08:59 Atorvastatin Calcium (Lipitor) 10 mg BEDTIME ORAL 05/26/18 21:00 06/25/18 20:59 Bismuth Subsalicylate (Pepto-Bismol) 30 ml Q3H PRN ORAL Diarrhea 05/26/18 05:45 06/25/18 05:44 Docusate Sodium (Colace) 100 mg DAILY ORAL 05/26/18 09:00 06/25/18 08:59 Heparin Sodium (Porcine) (Heparin 5000 units/ml) 5,000 units EVERY 12 HOURS SUBQ 05/26/18 09:00 06/25/18 08:59 Levetiracetam (Keppra) 500 mg Q12HR NG 05/26/18 09:00 06/25/18 08:59 Levothyroxine Sodium (Synthroid) 125 mcg DAILY@0630 ORAL 05/27/18 06:30 06/26/18 06:29 Metoprolol Succinate (Toprol XL) 12.5 mg BID ORAL 05/26/18 18:00 06/25/18 17:59 Sodium Chloride 1,000 ml @ 100 mls/hr Q10H IV 05/26/18 00:15 06/25/18 00:14 05/26/18 00:24 Sodium Chloride 1,000 ml @ 100 mls/hr Q10H IV 05/26/18 09:00 06/25/18 08:59 Assessment/Plan Assessment/Plan ASSESSMENT probable pneumonia CHF hx of Mitral regurgitation Acute kidney injury Severe protein calorie malnutrition Mentally challenged Seizure disorder History of subdural hematoma Hypothyroidism PLAN OF CARE telemetry IV fluids empiric abx, f/up with culture Echo suppl 02 to keep pulse ox above 90% pulmonary toilet hold off on beta-charleen due to current hypotension seizure precautions, continue Keppra continue a/PLT therapy with ASA and statin DVT prophylaxis Venous Duplex monitor renal parameters and electrolytes, avoid nephrotoxic , correct electrolytes as needed renal US dietary eval regarding nutritional supplements continue levothyroxine bowel regimen supportive care case discussed and evaluated by supervising physician Jasmin Greene NP May 26, 2018 09:02
[2018-05-26 09:04] LABS: EOSINOPHILS % (AUTO) 7.4 % (0.0-3.0); HEMATOCRIT 34.5 % (42.0-52.0); LYMPHOCYTES % (AUTO) 19.1 % (20.0-45.0); MEAN CORPUSCULAR VOLUME 99 FL (80-99); MONOCYTES % (AUTO) 10.1 % (1.0-10.0); NEUTROPHILS % (AUTO) 61.4 % (45.0-75.0); PLATELET COUNT 188 K/UL (150-450); RED BLOOD COUNT 3.49 M/UL (4.70-6.10); RED CELL DISTRIBUTION WIDTH 16.1 % (11.6-14.8); WHITE BLOOD COUNT 5.6 K/UL (4.8-10.8)
[2018-05-26] MEDS: Heparin 5000 units/ml inj SUBQ SCH ×2 (09:04→21:57)
[2018-05-26 09:21] LABS: PHOSPHORUS 4.5 MG/DL (2.5-4.9)
--- NOTE | 2018-05-26 09:30 | NUR ---
NURSE NOTES: Patient on G-tube feeding Glucerna 1.2 @ 15ml/h, goal is 45 ml/h. Patient tolerated no signs of n/v, flushed with water. Will continue to monitor.
--- NOTE | 2018-05-26 09:47 | NUR ---
NURSE NOTES: Dr. Steward made aware troponin level of 0.075. No order given yet. Will continue to monitor.
--- NOTE | 2018-05-26 13:03 | Cardiology Report ---
APPROVED REPORT EXAM: Two-dimensional and M-mode echocardiogram with Doppler and color Doppler. INDICATION Arrhythmia M-Mode DIMENSIONS IVSd1.3 (0.7-1.1cm)Left Atrium (MM)1.7 (1.6-4.0cm) LVDd2.9 (3.5-5.6cm)Aortic Root2.9 (2.0-3.7cm) PWd0.8 (0.7-1.1cm)Aortic Cusp Exc.1.6 (1.5-2.0cm) IVSs1.3 cm LVDs2.0 (2.5-4.0cm) PWs1.6 cm Normal left ventricular chamber size, systolic function and wall motion. Left ventricular ejection fraction estimated to be 55-60 %. Mild to moderate left ventricular hypertrophy. Trivial pericardial effusion. All other cardiac chamber sizes are within normal limits. Focal aortic valve sclerosis with adequate cusp excursion. Thickened mitral valve leaflets with normal excursion. Mitral annulus and aortic root calcification. Pulmonic valve not well visualized. Normal tricuspid valve structure. IVC at normal size with physiologic collapse. A color flow and spectral Doppler study was performed and revealed: No aortic insuuficency . Trace mitral regurgitation. Mitral diastolic velocities suggest reduced left ventricular relaxation c/w mild LV diastolic dysfunction (Grade I ). Trace tricuspid regurgitation. Tricuspid systolic velocities suggests peak right ventricular systolic pressure of 18 mmHg.
--- NOTE | 2018-05-26 13:22 | Cardiology Report ---
APPROVED REPORT EKG Measurement Heart [id number] Sinus bradycardia Left axis deviation Incomplete right bundle branch block Minimal voltage criteria for LVH, may be normal variant Abnormal ECG
--- NOTE | 2018-05-26 15:00 | NUR ---
NURSE NOTES: Patient has sacral area redness, skin protectant applied, optifoam dry intact. Heel protector on. Patient on SPR mattress. Will turn patient every 2 hours. Will continue to monitor.
--- NOTE | 2018-05-26 15:43 | History & Physical ---
History and Physical History & Physicial Dictated for Int Med-Dr Steward no. [id number]. Amor Berg MD May 26, 2018 15:43
--- NOTE | 2018-05-26 17:16 | Consultation ---
History of Present Illness General Chief Complaint: General Complaint Referring physician: DR LUNA Reason for Consultation: wounds Present Illness HPI 67 year old male with multiple medical comorbidities who is a [facility] resident was recently treated at [facility] for pneumonia and discharged to SNF where noted to be hypotensive. Transferred to [facility] for evaluation and treatment. Surgery called to evaluate given multiple wounds being noted on admission that will require care. Patient seen, chart reviewed, patient examined. unable to participate in exam Allergies: Coded Allergies: SULFA (SULFONAMIDE ANTIBIOTICS) (Verified Allergy, Unknown, 09/02/15) Medication History Scheduled Aspirin Ec* (Aspirin Ec*), 81 MG ORAL DAILY, (Reported) Atorvastatin Calcium* (Atorvastatin Calcium*), 10 MG ORAL BEDTIME, (Reported) Bismuth Subsalicylate ([place] Bismuth), 30 ML PO Q6HR, (Reported) Calcium Carbonate ([place] Calcium), 500 MG PO TID, (Reported) Clotrimazole (Clotrimazole), 30 GM TP PRN, (Reported) Denosumab (Prolia), 60 MG SUBQ EVERY 6 MONTHS, (Reported) Docusate Sodium* (Docusate Sodium*), 100 MG ORAL PRN, (Reported) Docusate Sodium* (Colace*), 100 MG ORAL DAILY, (Reported) Econazole Nitrate (Econazole Nitrate), 1 APPLIC TOP DAILY, (Reported) Guaifenesin/Dextromethorphan (Q-Tussin Dm Syrup), 10 ML PO Q6HR, (Reported) Levetiracetam* (Levetiracetam*), 500 MG ORAL TWICE A DAY, (Reported) Levothyroxine Sodium* (Levothyroxine Sodium*), 100 MCG ORAL DAILY, (Reported) Levothyroxine Sodium* (Levothyroxine Sodium*), 125 MCG ORAL DAILY, (Reported) Linaclotide (Linzess), 145 MCG PO DAILY, (Reported) Loratadine (Loratadine), 10 MG PO PRN, (Reported) Magnesium Hydroxide* (Milk Of Magnesia*), 15 ML ORAL PRN, (Reported) Metoprolol Succinate* (Metoprolol Succinate*), 12.5 MG ORAL DAILY, (Reported) Olanzapine* (Zyprexa*), 5 MG ORAL DAILY, (Reported) Polyethylene Glycol 3350* (Miralax*), 17 GM ORAL DAILY, (Reported) Pravastatin Sod* (Pravastatin Sod*), 20 MG ORAL BEDTIME, (Reported) Scheduled PRN Acetaminophen (Acetaminophen), 325 MG PO Q4HR PRN for For Pain, (Reported) Mineral Oil/Carrageenan (Kondremul Microemulsion), 2.5 ML PO BID PRN for Per rx protocol, (Reported) Miscellaneous Medications Ipratropium/Albuterol Sulfate (Iprat-Albut 0.5-3(2.5) Mg/3 Ml), 3 ML IH, ( Reported) Patient History Limited by: medical condition History Provided By: Medical Record, PMD Healthcare decision maker Resuscitation status Full Code Advanced Directive on File No Past Medical/Surgical History Past Medical/Surgical History: (1) Pneumonia (2) Hypotension (3) Elevated troponin (4) Hypothyroidism (5) Constipation (6) Colonoscopy planned (7) Lip laceration (8) Down syndrome (9) Congenital heart disease, adult (10) History of CHF (congestive heart failure) (11) Anxiety (12) Sepsis (13) Mental retardation (14) Subdural hematoma, post-traumatic Review of Systems ROS Narrative cannot obtain give medical condition Physical Exam General Appearance: no apparent distress Lines, tubes and drains: peripheral HEENT: mucous membranes moist Neck: normal inspection Respiratory/Chest: no respiratory distress, no accessory muscle use, decreased breath sounds Cardiovascular/Chest: normal rate Abdomen: soft, no organomegaly, no mass, other Extremities: no edema, other Skin Exam: warm/dry, other Neurologic: unresponsiveness Last 24 Hour Vital Signs Date Time Temp Pulse Resp B/P (MAP) Pulse Ox O2 Delivery O2 Flow Rate FiO2 05/26/18 16:00 97.9 60 20 85/51 (62) 99 05/26/18 12:00 76 05/26/18 12:00 97.2 76 19 89/51 (64) 99 05/26/18 09:00 Nasal Cannula 2.0 05/26/18 08:00 97.8 72 20 93/56 (68) 97 05/26/18 08:00 65 05/26/18 04:00 71 05/26/18 04:00 97.2 76 19 101/57 (72) 93 05/26/18 02:00 Nasal Cannula 2.0 05/26/18 02:00 97.5 65 12 105/66 (79) 100 05/26/18 01:15 97.5 63 18 96/52 100 Nasal Cannula 2.0 05/26/18 01:12 66 05/26/18 00:47 97.5 63 16 90/53 100 Nasal Cannula 2.0 05/25/18 21:15 62 18 Room Air 05/25/18 21:15 97.5 62 18 86/43 96 Room Air 05/25/18 20:38 97.5 62 18 86/43 96 Room Air Intake and Output 05/25/18 05/26/18 18:59 06:59 Intake Total 500 ml Output Total 300 ml Balance 200 ml Intake IV Total 500 ml Output Urine Total 300 ml # Voids 2 Laboratory Tests Test 05/25/18 21:36 05/25/18 22:20 05/26/18 08:34 White Blood Count 7.1 K/UL (4.8-10.8) 5.6 K/UL (4.8-10.8) Red Blood Count 4.31 M/UL (4.70-6.10) L 3.49 M/UL (4.70-6.10) L Hemoglobin 13.7 G/DL (14.2-18.0) L 11.0 G/DL (14.2-18.0) L Hematocrit 42.7 % (42.0-52.0) 34.5 % (42.0-52.0) L Mean Corpuscular Volume 99 FL (80-99) 99 FL (80-99) Mean Corpuscular Hemoglobin 31.8 PG (27.0-31.0) H 31.7 PG (27.0-31.0) H Mean Corpuscular Hemoglobin Concent 32.0 G/DL (32.0-36.0) 32.0 G/DL (32.0-36.0) Red Cell Distribution Width 16.4 % (11.6-14.8) H 16.1 % (11.6-14.8) H Platelet Count 189 K/UL (150-450) 188 K/UL (150-450) Mean Platelet Volume 8.5 FL (6.5-10.1) 8.7 FL (6.5-10.1) Neutrophils (%) (Auto) 67.9 % (45.0-75.0) 61.4 % (45.0-75.0) Lymphocytes (%) (Auto) 16.9 % (20.0-45.0) L 19.1 % (20.0-45.0) L Monocytes (%) (Auto) 9.1 % (1.0-10.0) 10.1 % (1.0-10.0) H Eosinophils (%) (Auto) 4.7 % (0.0-3.0) H 7.4 % (0.0-3.0) H Basophils (%) (Auto) 1.3 % (0.0-2.0) 2.0 % (0.0-2.0) Sodium Level 143 MMOL/L (136-145) Potassium Level 4.4 MMOL/L (3.5-5.1) Chloride Level 102 MMOL/L (98-107) Carbon Dioxide Level 34 MMOL/L (21-32) H Anion Gap 7 mmol/L (5-15) Blood Urea Nitrogen 34 mg/dL (7-18) H Creatinine 1.2 MG/DL (0.55-1.30) Estimat Glomerular Filtration Rate > 60 mL/min (>60) Glucose Level 100 MG/DL (74-106) Lactic Acid Level 1.10 mmol/L (0.4-2.0) Calcium Level 11.1 MG/DL (8.5-10.1) H Total Bilirubin 0.4 MG/DL (0.2-1.0) Aspartate Amino Transf (AST/SGOT) 21 U/L (15-37) Alanine Aminotransferase (ALT/SGPT) 29 U/L (12-78) Alkaline Phosphatase 99 U/L (46-116) Total Creatine Kinase 37 U/L (26-308) Creatine Kinase MB 1.7 NG/ML (0.0-3.6) Creatine Kinase MB Relative Index 4.5 Troponin I 0.048 ng/mL (0.000-0.056) 0.075 ng/mL (0.000-0.056) Pro-B-Type Natriuretic Peptide 1062 pg/mL (0-125) H 1046 pg/mL (0-125) H Total Protein 8.1 G/DL (6.4-8.2) Albumin 2.9 G/DL (3.4-5.0) L Globulin 5.2 g/dL Albumin/Globulin Ratio 0.6 (1.0-2.7) L Urine Color Pale yellow Urine Appearance Cloudy Urine pH 7 (4.5-8.0) Urine Specific [place] 1.010 (1.005-1.035) Urine Protein Negative (NEGATIVE) Urine Glucose (UA) Negative (NEGATIVE) Urine Ketones Negative (NEGATIVE) Urine Blood Negative (NEGATIVE) Urine Nitrite Negative (NEGATIVE) Urine Bilirubin Negative (NEGATIVE) Urine Urobilinogen Normal MG/DL (0.0-1.0) Urine Leukocyte Esterase Negative (NEGATIVE) Phosphorus Level 4.5 MG/DL (2.5-4.9) Magnesium Level 2.1 MG/DL (1.8-2.4) Thyroid Stimulating Hormone (TSH) 2.405 uiU/mL (0.358-3.740) Height (Feet): 5 Height (Inches): 8.00 Weight (Pounds): 107 Medications Current Medications Medications (Trade) Dose Ordered Sig/Eddy Route PRN Reason Start Time Stop Time Status Last Admin Dose Admin Acetaminophen (Tylenol) 325 mg Q4H PRN ORAL Mild Pain/Temp > 100.5 05/26/18 05:45 06/25/18 05:44 Albuterol/ Ipratropium (Albuterol/ Ipratropium) 3 ml Q4H PRN HHN Shortness of Breath 05/26/18 05:45 05/31/18 05:44 Aspirin (ASA) 81 mg DAILY NG 05/26/18 09:00 06/25/18 08:59 05/26/18 09:02 Atorvastatin Calcium (Lipitor) 10 mg BEDTIME ORAL 05/26/18 21:00 06/25/18 20:59 Bismuth Subsalicylate (Pepto-Bismol) 30 ml Q3H PRN ORAL Diarrhea 05/26/18 05:45 06/25/18 05:44 Docusate Sodium (Colace) 100 mg DAILY ORAL 05/26/18 09:00 06/25/18 08:59 05/26/18 09:02 Heparin Sodium (Porcine) (Heparin 5000 units/ml) 5,000 units EVERY 12 HOURS SUBQ 05/26/18 09:00 06/25/18 08:59 05/26/18 09:04 Levetiracetam (Keppra) 500 mg Q12HR NG 05/26/18 09:00 06/25/18 08:59 05/26/18 09:02 Levothyroxine Sodium (Synthroid) 125 mcg DAILY@0630 ORAL 05/27/18 06:30 06/26/18 06:29 Piperacillin Sod/ Tazobactam Sod 3.375 gm/Dextrose 110 ml @ 27.5 mls/hr EVERY 8 HOURS IVPB 05/26/18 22:00 05/31/18 21:59 Sodium Chloride 1,000 ml @ 100 mls/hr Q10H IV 05/26/18 00:15 06/25/18 00:14 05/26/18 10:24 Sodium Chloride 1,000 ml @ 100 mls/hr Q10H IV 05/26/18 09:00 06/25/18 08:59 05/26/18 09:02 Assessment/Plan Problem List: (1) Decubital ulcer Assessment & Plan: Patient presents with multiple wounds upon admission Partial thickness stage 2 sacral decubitus wound with periwound erythema. multiple small blotchy areas. area of resolving wound noted cephalad. Left heel blood blister 1cmx 1cm. periwound clean Tx plan: apply skin protectant and opti foam dressing daily and prn apply foam dressing to heel protectors turn q2h to offload pressure air mattress pillow below knees will follow with recs thank you for this consultation ICD Codes: L89.90 - Pressure ulcer of unspecified site, unspecified stage SNOMED: [id number] Qualifiers: Qualified Codes: L89.152 - Pressure ulcer of sacral region, stage 2 Status: stable Joselito Dorman May 26, 2018 17:16
[2018-05-26] MEDS ORDERED: Metoprolol Succinate XL 50mg tab ORAL SCH (18:00)
--- NOTE | 2018-05-26 19:15 | History and Physical Report ---
DATE OF ADMISSION: 05/25/2018 CHIEF COMPLAINT: The patient is a 67-year-old white male, who presents with chief complaint of hypotension. HISTORY OF PRESENT ILLNESS: The patient himself is unable to contribute much to the history and physical. The patient apparently had been admitted to [facility]. The patient was admitted for pneumonia. The patient had been discharged yesterday to half-way facility. According to staff at the half-way facility, the patient had low blood pressure. The patient was transferred to [facility]. The patient was found to have blood pressure of 86/43. The patient was admitted for hypotension to rule out sepsis. REVIEW OF SYSTEMS: Unable to assess secondary to the patient's mental status. PAST MEDICAL HISTORY: Significant for: 1. Down syndrome. 2. Congestive heart failure. 3. Mental retardation. 4. Chronic subdural hematoma. 5. Cerebrovascular disease, status post cerebrovascular accident. 6. Dysphagia. 7. History of right bundle-branch block. PAST SURGICAL HISTORY: Significant for PEG placement. CURRENT MEDICATIONS: 1. Tylenol 650 mg one per G-tube q.4 hours p.r.n. 2. Acetylcysteine inhaled q.4 hours. 3. Aspirin 81 mg one tablet per G-tube daily. 4. Atorvastatin 10 mg per G-tube daily. 5. Calcium carbonate 500 mg per G-tube q.8 hours. 6. Glucerna 1.2 at 45 mL/hour. 7. Heparin 5000 units subcutaneously 3 times daily. 8. DuoNeb nebulized q.4 hours p.r.n. 9. Lactulose 30 mL per G-tube daily. 10. Lansoprazole 30 mg per feeding tube daily. 11. Keppra 1000 mg per G-tube twice daily. 12. Levoxyl 0.15 mg per G-tube daily. 13. Metoprolol 6.25 mg per G-tube daily. 14. Multivitamin per G-tube daily. 15. Zyprexa 5 mg per G-tube nightly. 16. Sevelamer 400 mg per G-tube twice daily. 17. Zinc oxide 113. ALLERGIES: To sulfa. SOCIAL HISTORY: The patient is single and is disabled. The patient denies tobacco or alcohol use. PHYSICAL EXAMINATION: VITAL SIGNS: Temperature 97.5, respirations 18, pulse 63, blood pressure 86-93 over 43-56. GENERAL: The patient is a well-developed, well-nourished, nonverbal white male, in no apparent distress. HEENT: Eyes, pupils equal and responsive to light and accommodation. Extraocular movements are intact. NECK: Supple without lymphadenopathy. CHEST: Decreased breath sounds at bilateral bases with crackles bilaterally, otherwise without wheezes or rales. CARDIOVASCULAR: Regular rhythm and rate. S1, S2 normal without murmurs, rubs, or gallops. ABDOMEN: Soft, nontender, nondistended. Positive bowel sounds. No evidence of hepatosplenomegaly. Currently, no rebound or guarding noted. EXTREMITIES: Negative for clubbing, cyanosis, or edema. RECTAL: Not performed. GENITAL: Not performed. NEUROLOGICAL: Unable to assess. LABORATORY STUDIES: WBC 7.1, hemoglobin 13.7, hematocrit 42.7, platelets 189,000. Sodium 143, potassium 4.4, chloride 102, CO2 34, BUN 34, creatinine 1.2, glucose 100. BNP elevated at 1062. Troponin elevated at 0.075. Chest x-ray is pending. ASSESSMENT: This is a 67-year-old white male with: 1. Recent pneumonia. 2. Hypotension. 3. Elevated troponin. 4. Congestive heart failure. 5. Down syndrome. 6. Mental retardation. 7. Cerebrovascular disease. 8. Chronic subdural hematoma. 9. Dysphagia. 10. Right bundle-branch block. 11. Acute on chronic renal failure. TREATMENT: 1. Pneumonia/hypotension. Infectious Disease consultation has been obtained with Dr. Arteaga. The patient has been started empirically on Zosyn. We will follow recommendations of Infectious Disease and Pulmonary. Hypotension may be secondary to sepsis. 2. Elevated troponin/congestive heart failure. Cardiology consultation has been obtained with Dr. Vargas. 3. Down syndrome. 4. Renal failure. The patient is currently receiving intravenous fluids. 5. Cerebrovascular disease/chronic subdural hematoma. 6. Dysphagia. The patient is currently on G-tube feedings. 7. Right bundle-branch block. Amor Berg M.D. DR: Mike JOB#: [id number] CC:
--- NOTE | 2018-05-26 19:44 | NUR ---
HAND-OFF: Report given to CATALINA Stauffer. Patient in stable condition.
--- NOTE | 2018-05-26 19:45 | NUR ---
NURSE NOTES: Received report from CATALINA Colbert. Patient awake in bed, HOB elevated. GT running Glucerna 1.2 @ 30ml/hr, goal at 45ml. IV site to R AC intact and patent running NS @ 100ml/hr. No S/s of infiltration observed. Cont on contact precautions. Respiration even and unlabored, No SOB noted. On O2 @ LPM via NC. Condom cath on attached to bedside drainage bag.. Siderails padded. Optifoam on sacral and Left Heel for pressure injury. On SPR mattress. Heel protectors on. Bed in lowest position, wheels locked, alarm on. Call light within easy reach. Will continue to monitor.
[2018-05-26] MEDS: Piperacillin/Tazobactam 3.375 GM in D5W 110 ML IVPB SCH (21:59)
[2018-05-27] VITALS: BP 97/56
[2018-05-27 04:00] VITALS: BP 112/57
--- NOTE | 2018-05-27 04:32 | NUR ---
NURSE NOTES: Wound care done to Sacral Pressure Injury & Left Heel DTI. Opti Foam applied as ordered, tolerated well. No signs of acute distress or discomfort observed. Oral care done. Condom cath replaced, complete linen change done. Continue to be non-verbal, able to open eyes when name called. HOB kept elevated. GT running Glucerna 1.2 @ 35ml/hr tolerating well. Goal at 45ml/hr. Will continue to monitor
[2018-05-27] MEDS: Piperacillin/Tazobactam 3.375 GM in D5W 110 ML IVPB SCH ×3 (05:58→22:07)
[2018-05-27] MEDS: Levothyroxine 125mcg tab ORAL SCH (06:04)
--- NOTE | 2018-05-27 07:15 | NUR ---
HAND-OFF: Report given to CATALINA Alfonso. Plan of care endorsed.
--- NOTE | 2018-05-27 07:28 | Pulmonology Progress Note ---
Assessment/Plan Assessment/Plan ASSESSMENT probable pneumonia hypotension Abnormal cardiac enzyme CHF Acute kidney injury due to dehydration -resolved Severe protein calorie malnutrition Mentally challenged Seizure disorder History of subdural hematoma Hypothyroidism PLAN OF CARE telemetry gentle IV fluids empiric abx, f/up with culture suppl 02 to keep pulse ox above 90% pulmonary toilet Echo with pEF , no evidence of MR cardio eval pending hold off on beta-charleen due to current hypotension check troponin in am seizure precautions, continue Keppra continue a/PLT therapy with ASA and statin DVT prophylaxis Venous Duplex monitor renal parameters and electrolytes, avoid nephrotoxic , correct electrolytes as needed renal US dietary eval regarding nutritional supplements continue levothyroxine bowel regimen supportive care case discussed and evaluated by supervising physician Subjective Allergies: Coded Allergies: SULFA (SULFONAMIDE ANTIBIOTICS) (Verified Allergy, Unknown, 09/02/15) Subjective pulse ox stable on O2 via NC no signs of resp distress SR on tele Objective Last 24 Hour Vital Signs Date Time Temp Pulse Resp B/P (MAP) Pulse Ox O2 Delivery O2 Flow Rate FiO2 05/27/18 04:00 97.6 71 19 112/57 (75) 95 05/27/18 04:00 73 05/27/18 00:00 97.7 68 18 97/56 (70) 95 05/27/18 00:00 66 05/26/18 21:00 Nasal Cannula 2.0 05/26/18 20:00 64 05/26/18 20:00 97.4 70 19 95/56 (69) 95 05/26/18 16:00 61 05/26/18 16:00 97.9 60 20 85/51 (62) 99 05/26/18 12:00 76 05/26/18 12:00 97.2 76 19 89/51 (64) 99 05/26/18 09:00 Nasal Cannula 2.0 05/26/18 08:00 97.8 72 20 93/56 (68) 97 05/26/18 08:00 65 Intake and Output 05/26/18 05/27/18 19:00 07:00 Intake Total 700 ml 850.0 ml Output Total 700 ml Balance 0 ml 850.0 ml Intake IV Total 700 ml 510.0 ml Tube Feeding 340 ml Output Urine Total 700 ml Objective General Appearance: no apparent distress, cachetic Lines, tubes and drains: peripheral IV line HEENT: normocephalic, atraumatic, anicteric, mucous membranes moist Neck: non-tender, supple Respiratory/Chest: lungs clear, no accessory muscle use Cardiovascular/Chest: normal rate - SR with some PAC , no JVD Abdomen: normal bowel sounds, non tender, soft Extremities: normal capillary refill Neurologic: alert - nonverbal Musculoskeletal: normal muscle bulk Microbiology Date/Time Source Procedure Growth Status 05/25/18 21:30 Blood Blood Culture - Preliminary NO GROWTH AFTER 24 HOURS Resulted 05/25/18 21:15 Blood Blood Culture - Preliminary NO GROWTH AFTER 24 HOURS Resulted Laboratory Tests 05/26/18 08:34: White Blood Count 5.6, Red Blood Count 3.49L, Hemoglobin 11.0L, Hematocrit 34.5L , Mean Corpuscular Volume 99, Mean Corpuscular Hemoglobin 31.7H, Mean Corpuscular Hemoglobin Concent 32.0, Red Cell Distribution Width 16.1H, Platelet Count 188, Mean Platelet Volume 8.7, Neutrophils (%) (Auto) 61.4, Lymphocytes (%) (Auto) 19.1L, Monocytes (%) (Auto) 10.1H, Eosinophils (%) (Auto ) 7.4H, Basophils (%) (Auto) 2.0, Phosphorus Level 4.5, Magnesium Level 2.1, Troponin I 0.075H, Pro-B-Type Natriuretic Peptide 1046H, Thyroid Stimulating Hormone (TSH) 2.405 05/27/18 07:14: White Blood Count [Pending], Red Blood Count [Pending], Hemoglobin [Pending], Hematocrit [Pending], Mean Corpuscular Volume [Pending], Mean Corpuscular Hemoglobin [Pending], Mean Corpuscular Hemoglobin Concent [Pending], Red Cell Distribution Width [Pending], Platelet Count [Pending], Mean Platelet Volume [ Pending], Neutrophils (%) (Auto) [Pending], Lymphocytes (%) (Auto) [Pending], Monocytes (%) (Auto) [Pending], Eosinophils (%) (Auto) [Pending], Basophils (%) (Auto) [Pending], Sodium Level [Pending], Potassium Level [Pending], Chloride Level [Pending], Carbon Dioxide Level [Pending], Blood Urea Nitrogen [Pending], Creatinine [Pending], Estimat Glomerular Filtration Rate [Pending], Glucose Level [Pending], Calcium Level [Pending] Current Medications Medications (Trade) Dose Ordered Sig/Eddy Route PRN Reason Start Time Stop Time Status Last Admin Dose Admin Acetaminophen (Tylenol) 325 mg Q4H PRN ORAL Mild Pain/Temp > 100.5 05/26/18 05:45 06/25/18 05:44 Albuterol/ Ipratropium (Albuterol/ Ipratropium) 3 ml Q4H PRN HHN Shortness of Breath 05/26/18 05:45 05/31/18 05:44 Aspirin (ASA) 81 mg DAILY NG 05/26/18 09:00 06/25/18 08:59 05/26/18 09:02 Atorvastatin Calcium (Lipitor) 10 mg BEDTIME ORAL 05/26/18 21:00 06/25/18 20:59 05/26/18 21:54 Bismuth Subsalicylate (Pepto-Bismol) 30 ml Q3H PRN ORAL Diarrhea 05/26/18 05:45 06/25/18 05:44 Docusate Sodium (Colace) 100 mg DAILY ORAL 05/26/18 09:00 06/25/18 08:59 05/26/18 09:02 Heparin Sodium (Porcine) (Heparin 5000 units/ml) 5,000 units EVERY 12 HOURS SUBQ 05/26/18 09:00 06/25/18 08:59 05/26/18 21:57 Levetiracetam (Keppra) 500 mg Q12HR NG 05/26/18 09:00 06/25/18 08:59 05/26/18 21:55 Levothyroxine Sodium (Synthroid) 125 mcg DAILY@0630 ORAL 05/27/18 06:30 06/26/18 06:29 05/27/18 06:04 Piperacillin Sod/ Tazobactam Sod 3.375 gm/Dextrose 110 ml @ 27.5 mls/hr EVERY 8 HOURS IVPB 05/26/18 22:00 05/31/18 21:59 05/27/18 05:58 Sodium Chloride 1,000 ml @ 100 mls/hr Q10H IV 05/26/18 00:15 06/25/18 00:14 05/26/18 22:15 Sodium Chloride 1,000 ml @ 100 mls/hr Q10H IV 05/26/18 09:00 06/25/18 08:59 05/27/18 05:35 Jasmin Greene NP May 27, 2018 07:28
[2018-05-27 07:34] LABS: BASOPHILS % (AUTO) 2.6 % (0.0-2.0); EOSINOPHILS % (AUTO) 8.6 % (0.0-3.0); HEMATOCRIT 37.3 % (42.0-52.0); HEMOGLOBIN 11.8 G/DL (14.2-18.0); MEAN CORPUSCULAR VOLUME 100 FL (80-99); MONOCYTES % (AUTO) 11.4 % (1.0-10.0); NEUTROPHILS % (AUTO) 50.4 % (45.0-75.0); PLATELET COUNT 190 K/UL (150-450); RED BLOOD COUNT 3.73 M/UL (4.70-6.10); RED CELL DISTRIBUTION WIDTH 16.7 % (11.6-14.8); WHITE BLOOD COUNT 4.7 K/UL (4.8-10.8)
[2018-05-27 08:00] VITALS: BP 100/64
[2018-05-27 08:12] LABS: ANION GAP 8 mmol/L (5-15); BLOOD UREA NITROGEN 21 mg/dL (7-18); CALCIUM 9.7 MG/DL (8.5-10.1); CARBON DIOXIDE 29 MMOL/L (21-32); CHLORIDE 108 MMOL/L (98-107); CREATININE 1.1 MG/DL (0.55-1.30); POTASSIUM 3.9 MMOL/L (3.5-5.1); SODIUM 145 MMOL/L (136-145)
[2018-05-27] MEDS: Docusate 100mg cap ORAL SCH (08:48)
[2018-05-27] MEDS ORDERED: Sterile Water Irrig 1000ml IRRIG ONE (10:40)
[2018-05-27] MEDS: Aspirin Baby 81mg NG SCH (10:52)
[2018-05-27] MEDS: levETIRAcetam 500mg/5ml Liquid NG SCH ×2 (10:52→20:34)
[2018-05-27] MEDS: Heparin 5000 units/ml inj SUBQ SCH ×2 (10:53→20:35)
[2018-05-27 12:00] VITALS: BP 99/69
--- NOTE | 2018-05-27 12:50 | Internal Med Progress Note ---
Subjective Date of Service: May 27, 2018 Physician Name Amor Berg Attending Physician Jasen Steward MD Current Medications Medications (Trade) Dose Ordered Sig/Eddy Route PRN Reason Start Time Stop Time Status Last Admin Dose Admin Acetaminophen (Tylenol) 325 mg Q4H PRN ORAL Mild Pain/Temp > 100.5 05/26/18 05:45 06/25/18 05:44 Albuterol/ Ipratropium (Albuterol/ Ipratropium) 3 ml Q4H PRN HHN Shortness of Breath 05/26/18 05:45 05/31/18 05:44 Aspirin (ASA) 81 mg DAILY NG 05/26/18 09:00 06/25/18 08:59 05/27/18 10:52 Atorvastatin Calcium (Lipitor) 10 mg BEDTIME ORAL 05/26/18 21:00 06/25/18 20:59 05/26/18 21:54 Bismuth Subsalicylate (Pepto-Bismol) 30 ml Q3H PRN ORAL Diarrhea 05/26/18 05:45 06/25/18 05:44 Docusate Sodium (Colace) 100 mg DAILY NG 05/28/18 09:00 06/27/18 08:59 Heparin Sodium (Porcine) (Heparin 5000 units/ml) 5,000 units EVERY 12 HOURS SUBQ 05/26/18 09:00 06/25/18 08:59 05/27/18 10:53 Levetiracetam (Keppra) 500 mg Q12HR NG 05/26/18 09:00 06/25/18 08:59 05/27/18 10:52 Levothyroxine Sodium (Synthroid) 125 mcg DAILY@0630 ORAL 05/27/18 06:30 06/26/18 06:29 05/27/18 06:04 Piperacillin Sod/ Tazobactam Sod 3.375 gm/Dextrose 110 ml @ 27.5 mls/hr EVERY 8 HOURS IVPB 05/26/18 22:00 05/31/18 21:59 05/27/18 05:58 Sodium Chloride 1,000 ml @ 100 mls/hr Q10H IV 05/26/18 09:00 06/25/18 08:59 05/27/18 05:35 Allergies: Coded Allergies: SULFA (SULFONAMIDE ANTIBIOTICS) (Verified Allergy, Unknown, 09/02/15) ROS Limited/Unobtainable: Yes Subjective 67 YO M admitted with hypotension. Now pneumonia. Cover for Int Piero-Dr Steward Objective Last Vital Signs Date Time Temp Pulse Resp B/P (MAP) Pulse Ox O2 Delivery O2 Flow Rate FiO2 05/27/18 12:00 97.2 69 19 99/69 (79) 93 05/27/18 09:00 Nasal Cannula 2.0 Laboratory Tests Test 05/27/18 07:14 White Blood Count 4.7 K/UL (4.8-10.8) L Red Blood Count 3.73 M/UL (4.70-6.10) L Hemoglobin 11.8 G/DL (14.2-18.0) L Hematocrit 37.3 % (42.0-52.0) L Mean Corpuscular Volume 100 FL (80-99) H Mean Corpuscular Hemoglobin 31.8 PG (27.0-31.0) H Mean Corpuscular Hemoglobin Concent 31.8 G/DL (32.0-36.0) L Red Cell Distribution Width 16.7 % (11.6-14.8) H Platelet Count 190 K/UL (150-450) Mean Platelet Volume 8.6 FL (6.5-10.1) Neutrophils (%) (Auto) 50.4 % (45.0-75.0) Lymphocytes (%) (Auto) 27.0 % (20.0-45.0) Monocytes (%) (Auto) 11.4 % (1.0-10.0) H Eosinophils (%) (Auto) 8.6 % (0.0-3.0) H Basophils (%) (Auto) 2.6 % (0.0-2.0) H Sodium Level 145 MMOL/L (136-145) Potassium Level 3.9 MMOL/L (3.5-5.1) Chloride Level 108 MMOL/L (98-107) H Carbon Dioxide Level 29 MMOL/L (21-32) Anion Gap 8 mmol/L (5-15) Blood Urea Nitrogen 21 mg/dL (7-18) H Creatinine 1.1 MG/DL (0.55-1.30) Estimat Glomerular Filtration Rate > 60 mL/min (>60) Glucose Level 90 MG/DL (74-106) Calcium Level 9.7 MG/DL (8.5-10.1) Microbiology Date/Time Source Procedure Growth Status 05/25/18 21:30 Blood Blood Culture - Preliminary NO GROWTH AFTER 24 HOURS Resulted 05/25/18 21:15 Blood Blood Culture - Preliminary NO GROWTH AFTER 24 HOURS Resulted Intake and Output 05/26/18 05/27/18 19:00 07:00 Intake Total 700 ml 1077.5 ml Output Total 700 ml Balance 0 ml 1077.5 ml Intake IV Total 700 ml 737.5 ml Tube Feeding 340 ml Output Urine Total 700 ml Objective PHYSICAL EXAMINATION: GENERAL: The patient is a well-developed, well-nourished, nonverbal white male, in no apparent distress. HEENT: Eyes, pupils equal and responsive to light and accommodation. Extraocular movements are intact. NECK: Supple without lymphadenopathy. CHEST: Decreased breath sounds at bilateral bases with crackles bilaterally, otherwise without wheezes or rales. CARDIOVASCULAR: Regular rhythm and rate. S1, S2 normal without murmurs, rubs, or gallops. ABDOMEN: Soft, nontender, nondistended. Positive bowel sounds. No evidence of hepatosplenomegaly. Currently, no rebound or guarding noted. EXTREMITIES: Negative for clubbing, cyanosis, or edema. RECTAL: Not performed. GENITAL: Not performed. NEUROLOGICAL: Unable to assess. Assessment/Plan Assessment/Plan ASSESSMENT: This is a 67-year-old white male with: 1. Recent pneumonia. 2. Hypotension. 3. Elevated troponin. 4. Congestive heart failure. 5. Down syndrome. 6. Mental retardation. 7. Cerebrovascular disease. 8. Chronic subdural hematoma. 9. Dysphagia. 10. Right bundle-branch block. 11. Acute on chronic renal failure. 12. Sacral and left heel Decubitus Ulcer stage II-see surgery note. TREATMENT: 1. Pneumonia/hypotension. Infectious Disease consultation has been obtained with Dr. Arteaga. The patient has been started empirically on Zosyn. We will follow recommendations of Infectious Disease and Pulmonary. Hypotension may be secondary to sepsis. 2. Elevated troponin/congestive heart failure. Cardiology consultation has been obtained with Dr. Vargas. 3. Down syndrome. 4. Renal failure. The patient is currently receiving intravenous fluids. 5. Cerebrovascular disease/chronic subdural hematoma. 6. Dysphagia. The patient is currently on G-tube feedings. 7. Right bundle-branch block. Amor Berg MD May 27, 2018 12:50
--- NOTE | 2018-05-27 13:39 | NUR ---
RD ASSESSMENT & RECOMMENDATIONS SEE CARE ACTIVITY FOR COMPLETE ASSESSMENT DAILY ESTIMATED NEEDS: Needs based on Pulmonary, wound, wt loss 48.6kg 30-35 kcals/kg 1621-9933 total kcals 1.25-1.5 g protein/kg 61-73 g total protein 25-30 mL/kg 5660-7563 total fluid mLs NUTRITION DIAGNOSIS: Difficulty swallowing r/t dysphagia as evidenced by pt is PEG dep for all nutritional needs CURRENT TF: Glucerna 1.2 @45ml/hr ENTERAL NUTRITION RECOMMENDATIONS: Glucerna 1.5 @ 45ml/hr x 22 hrs to provide 990ml, 1485kcal, 82g prot, 751ml free water - Rec TF change to Glucerna 1.5 for increased kcal and protein needs - Initiate Glucerna 1.5 @ 25ml/hr x 6 hrs, advance 10ml q 4-6 hrs as tolerated to goal rate. - HOLD 1 Hr before and after synthroid meds. - Flush per MD/ HOB over 30 degrees ADDITIONAL RECOMMENDATIONS: 1) Calibrated bed scale wts weekly 2) Monitor lytes closely, replete as needed 3) Wound healing: Add Camron 1pkt BID + MVI x1 via PEG 4) Rec A1C for eval + SSI for bg control .
--- NOTE | 2018-05-27 14:42 | Cardiac Electrophysiology PN ---
Subjective Subjective [id number] Objective Last 24 Hour Vital Signs Date Time Temp Pulse Resp B/P (MAP) Pulse Ox O2 Delivery O2 Flow Rate FiO2 05/27/18 12:00 97.2 69 19 99/69 (79) 93 05/27/18 12:00 68 05/27/18 09:00 Nasal Cannula 2.0 05/27/18 08:00 97.1 61 19 100/64 (76) 99 05/27/18 08:00 62 05/27/18 04:00 97.6 71 19 112/57 (75) 95 05/27/18 04:00 73 05/27/18 00:00 97.7 68 18 97/56 (70) 95 05/27/18 00:00 66 05/26/18 21:00 Nasal Cannula 2.0 05/26/18 20:00 64 05/26/18 20:00 97.4 70 19 95/56 (69) 95 05/26/18 16:00 61 05/26/18 16:00 97.9 60 20 85/51 (62) 99 Intake and Output 05/26/18 05/27/18 19:00 07:00 Intake Total 700 ml 1077.5 ml Output Total 700 ml Balance 0 ml 1077.5 ml Intake IV Total 700 ml 737.5 ml Tube Feeding 340 ml Output Urine Total 700 ml Laboratory Tests Test 05/27/18 07:14 White Blood Count 4.7 K/UL (4.8-10.8) L Red Blood Count 3.73 M/UL (4.70-6.10) L Hemoglobin 11.8 G/DL (14.2-18.0) L Hematocrit 37.3 % (42.0-52.0) L Mean Corpuscular Volume 100 FL (80-99) H Mean Corpuscular Hemoglobin 31.8 PG (27.0-31.0) H Mean Corpuscular Hemoglobin Concent 31.8 G/DL (32.0-36.0) L Red Cell Distribution Width 16.7 % (11.6-14.8) H Platelet Count 190 K/UL (150-450) Mean Platelet Volume 8.6 FL (6.5-10.1) Neutrophils (%) (Auto) 50.4 % (45.0-75.0) Lymphocytes (%) (Auto) 27.0 % (20.0-45.0) Monocytes (%) (Auto) 11.4 % (1.0-10.0) H Eosinophils (%) (Auto) 8.6 % (0.0-3.0) H Basophils (%) (Auto) 2.6 % (0.0-2.0) H Sodium Level 145 MMOL/L (136-145) Potassium Level 3.9 MMOL/L (3.5-5.1) Chloride Level 108 MMOL/L (98-107) H Carbon Dioxide Level 29 MMOL/L (21-32) Anion Gap 8 mmol/L (5-15) Blood Urea Nitrogen 21 mg/dL (7-18) H Creatinine 1.1 MG/DL (0.55-1.30) Estimat Glomerular Filtration Rate > 60 mL/min (>60) Glucose Level 90 MG/DL (74-106) Calcium Level 9.7 MG/DL (8.5-10.1) Microbiology Date/Time Source Procedure Growth Status 05/25/18 21:30 Blood Blood Culture - Preliminary NO GROWTH AFTER 24 HOURS Resulted 05/25/18 21:15 Blood Blood Culture - Preliminary NO GROWTH AFTER 24 HOURS Resulted Harlan Vargas MD May 27, 2018 14:42
[2018-05-27 16:00] VITALS: BP_SYST 112; BP_SYST 142; BP_DIAS 73; BP_DIAS 86
--- NOTE | 2018-05-27 18:00 | Consultation ---
DATE OF CONSULTATION: 05/27/2018 CARDIOLOGY CONSULTATION CONSULTING PHYSICIAN: Harlan Vargas M.D. REFERRING PHYSICIAN: Jasen Steward M.D. REASON FOR CONSULTATION: Hypotension. HISTORY OF PRESENT ILLNESS: The patient is a 67-year-old gentleman with history of dementia and dysphagia status post percutaneous endoscopic gastrostomy placement, who is nonverbal. The patient was brought in for hypotension and the blood pressure was 86/43 at the long term facility. The patient was admitted and a Cardiology consultation was obtained for further evaluation and management. PAST MEDICAL HISTORY: 1. Hypertension. 2. Down syndrome. 3. Mental retardation. 4. Chronic subdural hematoma. 5. History of prior CVA. 6. Right bundle branch block. 7. Dysphagia. 8. Status post PEG placement. MEDICATIONS: Per reconciliation. REVIEW OF SYSTEMS: Cannot be obtained. PHYSICAL EXAMINATION: VITAL SIGNS: Show blood pressure of 99/69, pulse 69, respiration 19, and temperature 97.2 degrees. HEAD AND NECK: Shows no JVD. LUNGS: Coarse rhonchi. CARDIOVASCULAR: Shows regular S1 and S2 with no gallop. ABDOMEN: Soft. Status post G-tube. EXTREMITIES: 1+ pitting edema. LABORATORY AND DIAGNOSTIC DATA: His EKG shows sinus bradycardia at the rate of 59 with incomplete right bundle-branch block and left axis deviation and left ventricular hypertrophy. LABORATORY DATA: Labs show white count of 4.7, hemoglobin 11.8, hematocrit 37.3, and platelet count of 190,000. Sodium 145, potassium 3.9, BUN of 21, and creatinine 1.1. Troponin is elevated at 0.075. ASSESSMENT AND PLAN: 1. Troponin leak. The troponin is 0.04. The second troponin is 0.075, mildly elevated. The patient is nonverbal. EKG is nonischemic. I will just repeat a troponin. The patient is not a candidate for any invasive cardiac procedure. Continue the patient on aspirin and get an echocardiogram. 2. Hypotension. Blood pressure is better, however, likely due to sepsis. The patient is on IV antibiotic. Metoprolol was discontinued. If the blood pressure remains low, add midodrine. 3. Hypothyroidism. On Synthroid. 4. Mental retardation. 5. History of CVA. Thank you very much for allowing me to participate in the care of this patient. Please do not hesitate to contact me for any questions regarding my evaluation. Harlan Vargas M.D. DR: JOSE ANGEL JOB#: [id number] CC:
--- NOTE | 2018-05-27 18:08 | NUR ---
NURSE NOTES: Upon changing patient's condom catheter, noted red line marking on penile shaft, no active bleeding noted, no swelling noted. Discontinued condom catheters, pericare rendered. Applied skin barrier on site. Wound consult in place, process plan in place. Will continue to monitor patient. Addendum: 05/27/18 at 1828 by MILEY SOSA RN NURSE NOTES: Dr. Steward made aware, acknowledged. Noted.
--- NOTE | 2018-05-27 19:30 | NUR ---
HAND-OFF: Report given to CATALINA Hinson.
--- NOTE | 2018-05-27 19:31 | NUR ---
NURSE NOTES: Received report from CATALINA Aguirre. Pt is resting in bed. In no acute distress. Bed in lowest position, call light within reach. Will continue plan of care.
[2018-05-27 20:00] VITALS: BP 101/66
[2018-05-28] VITALS (7 sets, daily range): BP systolic 98–124; BP diastolic 54–77
[2018-05-28] MEDS: Levothyroxine 125mcg tab ORAL SCH (06:43)
[2018-05-28] MEDS: Piperacillin/Tazobactam 3.375 GM in D5W 110 ML IVPB SCH ×3 (06:43→21:37)
--- NOTE | 2018-05-28 07:05 | NUR ---
HAND-OFF: Report given to CATALINA Norris.
--- NOTE | 2018-05-28 07:06 | NUR ---
NURSE NOTES: Received report from CATALINA Hinson. Patient is resting in bed, sleeping, HOB elevated. GT running Glucerna 1.2 @ 45ml/hr, goal at 45ml. IV site intact running NS @ 100ml/hr. No S/s of acute distress at this time. Respiration even and unlabored, No SOB noted, pt on 2 liter O2 via NC. Side rails padded. On SPR mattress. Bed in lowest position, wheels locked, alarm on. Call light and bed side table within easy reach. Will continue to monitor.
[2018-05-28 07:14] LABS: BASOPHILS % (AUTO) 2.3 % (0.0-2.0); EOSINOPHILS % (AUTO) 7.3 % (0.0-3.0); HEMATOCRIT 38.2 % (42.0-52.0); HEMOGLOBIN 12.3 G/DL (14.2-18.0); LYMPHOCYTES % (AUTO) 24.9 % (20.0-45.0); MEAN CORPUSCULAR VOLUME 99 FL (80-99); MONOCYTES % (AUTO) 10.9 % (1.0-10.0); NEUTROPHILS % (AUTO) 54.6 % (45.0-75.0); PLATELET COUNT 198 K/UL (150-450); RED BLOOD COUNT 3.87 M/UL (4.70-6.10); RED CELL DISTRIBUTION WIDTH 16.3 % (11.6-14.8); WHITE BLOOD COUNT 4.1 K/UL (4.8-10.8)
[2018-05-28 07:31] LABS: ANION GAP 6 mmol/L (5-15); BLOOD UREA NITROGEN 16 mg/dL (7-18); CALCIUM 9.3 MG/DL (8.5-10.1); CARBON DIOXIDE 30 MMOL/L (21-32); CHLORIDE 108 MMOL/L (98-107); CHOLESTEROL 156 MG/DL (< 200); CREATININE 1.1 MG/DL (0.55-1.30); HDL CHOLESTEROL 52 MG/DL (40-60); SODIUM 144 MMOL/L (136-145); TRIGLYCERIDES 60 MG/DL (30-150)
[2018-05-28] MEDS ORDERED: Docusate 100mg/10ml Liq NG SCH (09:00)
[2018-05-28] MEDS: levETIRAcetam 500mg/5ml Liquid NG SCH (09:02)
[2018-05-28] MEDS: Aspirin Baby 81mg NG SCH (09:02)
[2018-05-28] MEDS: Heparin 5000 units/ml inj SUBQ SCH ×2 (09:03→21:40)
--- NOTE | 2018-05-28 11:13 | Diagnostic Imaging Report ---
Indication: Renal insufficiency Technique: US Renal Comp Comparison: None Findings: Right kidney measures 9.3 cm in length. Left kidney measures 9.4 cm in length. Both kidneys demonstrate normal echogenicity. There is no hydronephrosis or sonographically appreciable renal stone bilaterally. No sonographically appreciable contour deforming renal mass. Color flow to the bilateral kidneys within normal limits. There is apparent bladder wall thickening with some possible mild echogenic debris in the bladder. Bilateral ureteral jets identified. Prostate not identified. Imaged portions of the liver unremarkable. IMPRESSION: * No hydronephrosis or sonographically appreciable renal stone. * Renal echogenicity within normal limits. * Bladder wall thickening. Questionable echogenic debris in the bladder. Correlation with urinalysis recommended to exclude cystitis.
--- NOTE | 2018-05-28 12:51 | Pulmonology Progress Note ---
Assessment/Plan Problems: (1) Sepsis (2) Pneumonia (3) Hypotension (4) Decubital ulcer (5) Down syndrome (6) Hypothyroidism (7) Congenital heart disease, adult Assessment/Plan decrease IV fluids check electrolytes check Echo ID evaluation check electrolytes dvt prophylaxis. Subjective ROS Limited/Unobtainable: No Interval Events: awake, comfortable Constitutional: Reports: no symptoms HEENT: Repors: no symptoms Allergies: Coded Allergies: SULFA (SULFONAMIDE ANTIBIOTICS) (Verified Allergy, Unknown, 09/02/15) Objective Last 24 Hour Vital Signs Date Time Temp Pulse Resp B/P (MAP) Pulse Ox O2 Delivery O2 Flow Rate FiO2 05/28/18 08:00 98.0 82 20 124/55 (78) 94 05/28/18 04:00 61 05/28/18 04:00 97.8 61 20 109/54 (72) 98 05/28/18 00:00 98.2 61 20 98/58 (71) 98 05/28/18 00:00 61 05/27/18 21:00 Nasal Cannula 2.0 05/27/18 20:00 60 05/27/18 20:00 97.7 60 20 101/66 (78) 96 05/27/18 19:42 Nasal Cannula 2.0 28 05/27/18 19:42 98 Nasal Cannula 2.0 28 05/27/18 19:42 77 18 Nasal Cannula 2.0 28 05/27/18 16:00 97.5 84 19 112/86 (95) 96 05/27/18 16:00 71 Intake and Output 05/27/18 05/28/18 19:00 07:00 Intake Total 100 ml Output Total 500 ml Balance -400 ml Intake IV Total 100 ml Output Urine Total 500 ml # Voids 3 General Appearance: cachetic HEENT: normocephalic, atraumatic Respiratory/Chest: chest wall non-tender, crackles/rales Cardiovascular: normal peripheral pulses, normal rate Abdomen: normal bowel sounds, soft, non tender Genitourinary: normal external genitalia Extremities: no clubbing Skin: no rash Microbiology Date/Time Source Procedure Growth Status 05/25/18 21:30 Blood Blood Culture - Preliminary NO GROWTH AFTER 48 HOURS Resulted 05/25/18 21:15 Blood Blood Culture - Preliminary NO GROWTH AFTER 48 HOURS Resulted 05/26/18 06:00 Nasal Nares MRSA Culture - Final NO METHICILLIN RESISTANT STAPH AUREUS... Complete 05/26/18 06:00 Rectum VRE Culture - Final Enterococcus Faecium - Vre Enterococcus Faecalis - Vre Resulted 05/26/18 06:00 Rectum Pending Resulted Laboratory Tests 05/28/18 05:50: White Blood Count 4.1L, Red Blood Count 3.87L, Hemoglobin 12.3L, Hematocrit 38.2L, Mean Corpuscular Volume 99, Mean Corpuscular Hemoglobin 31.8H, Mean Corpuscular Hemoglobin Concent 32.2, Red Cell Distribution Width 16.3H, Platelet Count 198, Mean Platelet Volume 8.5, Neutrophils (%) (Auto) 54.6, Lymphocytes (%) (Auto) 24.9, Monocytes (%) (Auto) 10.9H, Eosinophils (%) (Auto) 7.3H, Basophils (%) (Auto) 2.3H, Sodium Level 144, Potassium Level 4.0, Chloride Level 108H, Carbon Dioxide Level 30, Anion Gap 6, Blood Urea Nitrogen 16, Creatinine 1.1, Estimat Glomerular Filtration Rate > 60, Glucose Level 96, Calcium Level 9.3, Troponin I 0.060H, Triglycerides Level 60, Cholesterol Level 156, LDL Cholesterol 99, HDL Cholesterol 52, Cholesterol/HDL Ratio 3.0L Current Medications Medications (Trade) Dose Ordered Sig/Eddy Route PRN Reason Start Time Stop Time Status Last Admin Dose Admin Acetaminophen (Tylenol) 325 mg Q4H PRN ORAL Mild Pain/Temp > 100.5 05/26/18 05:45 06/25/18 05:44 Albuterol/ Ipratropium (Albuterol/ Ipratropium) 3 ml Q4H PRN HHN Shortness of Breath 05/26/18 05:45 05/31/18 05:44 Aspirin (ASA) 81 mg DAILY NG 05/26/18 09:00 06/25/18 08:59 05/28/18 09:02 Atorvastatin Calcium (Lipitor) 10 mg BEDTIME ORAL 05/26/18 21:00 06/25/18 20:59 05/27/18 20:35 Bismuth Subsalicylate (Pepto-Bismol) 30 ml Q3H PRN ORAL Diarrhea 05/26/18 05:45 06/25/18 05:44 Docusate Sodium (Colace) 100 mg DAILY NG 05/28/18 09:00 06/27/18 08:59 05/28/18 09:02 Heparin Sodium (Porcine) (Heparin 5000 units/ml) 5,000 units EVERY 12 HOURS SUBQ 05/26/18 09:00 06/25/18 08:59 05/28/18 09:03 Levetiracetam (Keppra) 500 mg Q12HR NG 05/26/18 09:00 06/25/18 08:59 05/28/18 09:02 Levothyroxine Sodium (Synthroid) 125 mcg DAILY@0630 ORAL 05/27/18 06:30 06/26/18 06:29 05/28/18 06:43 Midodrine (Pro-Amatine) 2.5 mg THREE TIMES A DAY ORAL 05/27/18 18:00 06/26/18 17:59 05/28/18 09:02 Olanzapine (ZyPREXA) 5 mg BEDTIME ORAL 05/28/18 21:00 06/27/18 20:59 Piperacillin Sod/ Tazobactam Sod 3.375 gm/Dextrose 110 ml @ 27.5 mls/hr EVERY 8 HOURS IVPB 05/26/18 22:00 05/31/18 21:59 05/28/18 06:43 Sodium Chloride 1,000 ml @ 100 mls/hr Q10H IV 05/26/18 09:00 06/25/18 08:59 05/28/18 12:03 Chapin Schreiber MD May 28, 2018 12:51
--- NOTE | 2018-05-28 14:12 | Cardiac Electrophysiology PN ---
Assessment/Plan Assessment/Plan 1. Troponin leak. The first troponin was negative and the second troponin is 0.075, mildly elevated. The patient is nonverbal. EKG is nonischemic. The patient is not a candidate for any invasive cardiac procedure. Continue the patient on aspirin. echo EF 65% 2. Hypotension. Blood pressure is better, however, likely due to sepsis. The patient is on IV antibiotic. Metoprolol was discontinued, on midodrine. 3. Hypothyroidism. On Synthroid. 4. Mental retardation. 5. History of CVA. Subjective Subjective Alert in NAD.Non verbal Objective Last 24 Hour Vital Signs Date Time Temp Pulse Resp B/P (MAP) Pulse Ox O2 Delivery O2 Flow Rate FiO2 05/28/18 08:00 98.0 82 20 124/55 (78) 94 05/28/18 04:00 61 05/28/18 04:00 97.8 61 20 109/54 (72) 98 05/28/18 00:00 98.2 61 20 98/58 (71) 98 05/28/18 00:00 61 05/27/18 21:00 Nasal Cannula 2.0 05/27/18 20:00 60 05/27/18 20:00 97.7 60 20 101/66 (78) 96 05/27/18 19:42 Nasal Cannula 2.0 28 05/27/18 19:42 98 Nasal Cannula 2.0 28 05/27/18 19:42 77 18 Nasal Cannula 2.0 28 05/27/18 16:00 97.5 84 19 112/86 (95) 96 05/27/18 16:00 71 Intake and Output 05/27/18 05/28/18 19:00 07:00 Intake Total 100 ml Output Total 500 ml Balance -400 ml Intake IV Total 100 ml Output Urine Total 500 ml # Voids 3 Laboratory Tests Test 05/28/18 05:50 White Blood Count 4.1 K/UL (4.8-10.8) L Red Blood Count 3.87 M/UL (4.70-6.10) L Hemoglobin 12.3 G/DL (14.2-18.0) L Hematocrit 38.2 % (42.0-52.0) L Mean Corpuscular Volume 99 FL (80-99) Mean Corpuscular Hemoglobin 31.8 PG (27.0-31.0) H Mean Corpuscular Hemoglobin Concent 32.2 G/DL (32.0-36.0) Red Cell Distribution Width 16.3 % (11.6-14.8) H Platelet Count 198 K/UL (150-450) Mean Platelet Volume 8.5 FL (6.5-10.1) Neutrophils (%) (Auto) 54.6 % (45.0-75.0) Lymphocytes (%) (Auto) 24.9 % (20.0-45.0) Monocytes (%) (Auto) 10.9 % (1.0-10.0) H Eosinophils (%) (Auto) 7.3 % (0.0-3.0) H Basophils (%) (Auto) 2.3 % (0.0-2.0) H Sodium Level 144 MMOL/L (136-145) Potassium Level 4.0 MMOL/L (3.5-5.1) Chloride Level 108 MMOL/L (98-107) H Carbon Dioxide Level 30 MMOL/L (21-32) Anion Gap 6 mmol/L (5-15) Blood Urea Nitrogen 16 mg/dL (7-18) Creatinine 1.1 MG/DL (0.55-1.30) Estimat Glomerular Filtration Rate > 60 mL/min (>60) Glucose Level 96 MG/DL (74-106) Calcium Level 9.3 MG/DL (8.5-10.1) Troponin I 0.060 ng/mL (0.000-0.056) Triglycerides Level 60 MG/DL (30-150) Cholesterol Level 156 MG/DL (< 200) LDL Cholesterol 99 mg/dL (<100) HDL Cholesterol 52 MG/DL (40-60) Cholesterol/HDL Ratio 3.0 (3.3-4.4) L Microbiology Date/Time Source Procedure Growth Status 05/25/18 21:30 Blood Blood Culture - Preliminary NO GROWTH AFTER 48 HOURS Resulted 05/25/18 21:15 Blood Blood Culture - Preliminary NO GROWTH AFTER 48 HOURS Resulted 05/26/18 06:00 Nasal Nares MRSA Culture - Final NO METHICILLIN RESISTANT STAPH AUREUS... Complete 05/26/18 06:00 Rectum VRE Culture - Final Enterococcus Faecium - Vre Enterococcus Faecalis - Vre Resulted 05/26/18 06:00 Rectum Pending Resulted Objective HEAD AND NECK: Shows no JVD. LUNGS: Coarse rhonchi. CARDIOVASCULAR: Shows regular S1 and S2 with no gallop. ABDOMEN: Soft. Status post G-tube. EXTREMITIES: 1+ pitting edema. Harlan Vargas MD May 28, 2018 14:11
--- NOTE | 2018-05-28 14:15 | Internal Med Progress Note ---
Subjective Date of Service: May 28, 2018 Physician Name Amor Berg Attending Physician Jasen Steward MD Current Medications Medications (Trade) Dose Ordered Sig/Eddy Route PRN Reason Start Time Stop Time Status Last Admin Dose Admin Acetaminophen (Tylenol) 325 mg Q4H PRN ORAL Mild Pain/Temp > 100.5 05/26/18 05:45 06/25/18 05:44 Albuterol/ Ipratropium (Albuterol/ Ipratropium) 3 ml Q4H PRN HHN Shortness of Breath 05/26/18 05:45 05/31/18 05:44 Bismuth Subsalicylate (Pepto-Bismol) 30 ml Q3H PRN ORAL Diarrhea 05/26/18 05:45 06/25/18 05:44 Docusate Sodium (Colace) 100 mg DAILY NG 05/28/18 09:00 06/27/18 08:59 05/28/18 09:02 Heparin Sodium (Porcine) (Heparin 5000 units/ml) 5,000 units EVERY 12 HOURS SUBQ 05/26/18 09:00 06/25/18 08:59 05/28/18 09:03 Levetiracetam (Keppra) 500 mg Q12HR NG 05/26/18 09:00 06/25/18 08:59 05/28/18 09:02 Levothyroxine Sodium (Synthroid) 125 mcg DAILY@0630 ORAL 05/27/18 06:30 06/26/18 06:29 05/28/18 06:43 Midodrine (Pro-Amatine) 2.5 mg THREE TIMES A DAY ORAL 05/27/18 18:00 06/26/18 17:59 05/28/18 13:33 Olanzapine (ZyPREXA) 5 mg BEDTIME ORAL 05/28/18 21:00 06/27/18 20:59 Piperacillin Sod/ Tazobactam Sod 3.375 gm/Dextrose 110 ml @ 27.5 mls/hr EVERY 8 HOURS IVPB 05/26/18 22:00 05/31/18 21:59 05/28/18 13:33 Sodium Chloride 1,000 ml @ 50 mls/hr Q20H IV 05/28/18 12:50 06/27/18 12:49 05/28/18 12:50 Allergies: Coded Allergies: SULFA (SULFONAMIDE ANTIBIOTICS) (Verified Allergy, Unknown, 09/02/15) ROS Limited/Unobtainable: Yes Subjective 67 YO M admitted with hypotension. Now pneumonia. Cover for Int Piero-Dr Steward Objective Last Vital Signs Date Time Temp Pulse Resp B/P (MAP) Pulse Ox O2 Delivery O2 Flow Rate FiO2 05/28/18 08:00 98.0 82 20 124/55 (78) 94 05/27/18 21:00 Nasal Cannula 2.0 05/27/18 19:42 28 Laboratory Tests Test 05/28/18 05:50 White Blood Count 4.1 K/UL (4.8-10.8) L Red Blood Count 3.87 M/UL (4.70-6.10) L Hemoglobin 12.3 G/DL (14.2-18.0) L Hematocrit 38.2 % (42.0-52.0) L Mean Corpuscular Volume 99 FL (80-99) Mean Corpuscular Hemoglobin 31.8 PG (27.0-31.0) H Mean Corpuscular Hemoglobin Concent 32.2 G/DL (32.0-36.0) Red Cell Distribution Width 16.3 % (11.6-14.8) H Platelet Count 198 K/UL (150-450) Mean Platelet Volume 8.5 FL (6.5-10.1) Neutrophils (%) (Auto) 54.6 % (45.0-75.0) Lymphocytes (%) (Auto) 24.9 % (20.0-45.0) Monocytes (%) (Auto) 10.9 % (1.0-10.0) H Eosinophils (%) (Auto) 7.3 % (0.0-3.0) H Basophils (%) (Auto) 2.3 % (0.0-2.0) H Sodium Level 144 MMOL/L (136-145) Potassium Level 4.0 MMOL/L (3.5-5.1) Chloride Level 108 MMOL/L (98-107) H Carbon Dioxide Level 30 MMOL/L (21-32) Anion Gap 6 mmol/L (5-15) Blood Urea Nitrogen 16 mg/dL (7-18) Creatinine 1.1 MG/DL (0.55-1.30) Estimat Glomerular Filtration Rate > 60 mL/min (>60) Glucose Level 96 MG/DL (74-106) Calcium Level 9.3 MG/DL (8.5-10.1) Troponin I 0.060 ng/mL (0.000-0.056) Triglycerides Level 60 MG/DL (30-150) Cholesterol Level 156 MG/DL (< 200) LDL Cholesterol 99 mg/dL (<100) HDL Cholesterol 52 MG/DL (40-60) Cholesterol/HDL Ratio 3.0 (3.3-4.4) L Microbiology Date/Time Source Procedure Growth Status 05/25/18 21:30 Blood Blood Culture - Preliminary NO GROWTH AFTER 48 HOURS Resulted 05/25/18 21:15 Blood Blood Culture - Preliminary NO GROWTH AFTER 48 HOURS Resulted 05/26/18 06:00 Nasal Nares MRSA Culture - Final NO METHICILLIN RESISTANT STAPH AUREUS... Complete 05/26/18 06:00 Rectum VRE Culture - Final Enterococcus Faecium - Vre Enterococcus Faecalis - Vre Resulted 05/26/18 06:00 Rectum Pending Resulted Intake and Output 05/27/18 05/28/18 19:00 07:00 Intake Total 100 ml Output Total 500 ml Balance -400 ml Intake IV Total 100 ml Output Urine Total 500 ml # Voids 3 Objective PHYSICAL EXAMINATION: GENERAL: The patient is a well-developed, well-nourished, nonverbal white male, in no apparent distress. HEENT: Eyes, pupils equal and responsive to light and accommodation. Extraocular movements are intact. NECK: Supple without lymphadenopathy. CHEST: Decreased breath sounds at bilateral bases with crackles bilaterally, otherwise without wheezes or rales. CARDIOVASCULAR: Regular rhythm and rate. S1, S2 normal without murmurs, rubs, or gallops. ABDOMEN: Soft, nontender, nondistended. Positive bowel sounds. No evidence of hepatosplenomegaly. Currently, no rebound or guarding noted. EXTREMITIES: Negative for clubbing, cyanosis, or edema. RECTAL: Not performed. GENITAL: Not performed. NEUROLOGICAL: Unable to assess. Assessment/Plan Assessment/Plan ASSESSMENT: This is a 67-year-old white male with: 1. Recent pneumonia. 2. Hypotension. 3. Elevated troponin. 4. Congestive heart failure. 5. Down syndrome. 6. Mental retardation. 7. Cerebrovascular disease. 8. Chronic subdural hematoma. 9. Dysphagia. 10. Right bundle-branch block. 11. Acute on chronic renal failure. 12. Sacral and left heel Decubitus Ulcer stage II-see surgery note. TREATMENT: 1. Pneumonia/hypotension. Infectious Disease consultation has been obtained with Dr. Arteaga. The patient has been started empirically on Zosyn. We will follow recommendations of Infectious Disease and Pulmonary. Hypotension may be secondary to sepsis. 2. Elevated troponin/congestive heart failure. Cardiology consultation has been obtained with Dr. Vargas. 3. Down syndrome. 4. Renal failure. The patient is currently receiving intravenous fluids. 5. Cerebrovascular disease/chronic subdural hematoma. 6. Dysphagia. The patient is currently on G-tube feedings. 7. Right bundle-branch block. Amor Berg MD May 28, 2018 14:15
--- NOTE | 2018-05-28 14:34 | Diagnostic Imaging Report ---
. Indication: Shortness of breath Technique: XRAY Chest 1v Comparison: 05/25/2018 Findings: Heart size stable. Gastrostomy tube partially visualized. There is scoliosis and degenerative change of the spine. There is worsening of aeration with increasing left basilar opacities. Likely trace left pleural effusion. Opacities in the medial right base. No pneumothorax. Impression: Worsening aeration with increasing opacities at the left base.
--- NOTE | 2018-05-28 16:49 | NUR ---
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 98.2 HR 82 RR 20 B/P 124/55 2L NC O2 SAT @ 98% TROP 0.060 IS: IVF NS @ 50ML/HR ZOSYN IV HEPARIN SUBC MIDODRINE PO MED/SURG STATUS
--- NOTE | 2018-05-28 19:40 | NUR ---
HAND-OFF: Report given to CATALINA Hinson.
--- NOTE | 2018-05-28 19:41 | NUR ---
NURSE NOTES: Received report from CATALINA Norris. Pt is resting in bed. In no acute distress. GT feeding well tolerated. HOB elevated. Bed in lowest position, call light within reach. Will continue plan of care.
--- NOTE | 2018-05-28 20:50 | NUR ---
TRANSFER TO FLOOR: Patient transferred to [facility] Med/Surg unit, per MD order. Report given to CATALINA Mina.
[2018-05-28] MEDS ORDERED: Bismuth Subsalicylate 30ml GT PRN (20:59)
[2018-05-28] MEDS ORDERED: Acetaminophen 650mg/20.3ml GT PRN (21:00)
[2018-05-28] MEDS ORDERED: levETIRAcetam 500mg/5ml Liquid NG SCH (21:00)
--- NOTE | 2018-05-28 21:17 | Consultation ---
History of Present Illness General Date patient seen: May 26, 2018 Chief Complaint: General Complaint Referring physician: DR LUNA Reason for Consultation: wounds Present Illness HPI 67-year-old white male, who presents with chief complaint of hypotension. The pt has hx of mmp and cognitive impairment. the pt is on g tube waxing and waning of consciousness. he is confused and has episodes of agitation Allergies: Coded Allergies: SULFA (SULFONAMIDE ANTIBIOTICS) (Verified Allergy, Unknown, 09/02/15) Medication History Scheduled Aspirin Ec* (Aspirin Ec*), 81 MG ORAL DAILY, (Reported) Atorvastatin Calcium* (Atorvastatin Calcium*), 10 MG ORAL BEDTIME, (Reported) Bismuth Subsalicylate ([place] Bismuth), 30 ML PO Q6HR, (Reported) Calcium Carbonate (Oyster Shell Calcium), 500 MG PO TID, (Reported) Clotrimazole (Clotrimazole), 30 GM TP PRN, (Reported) Denosumab (Prolia), 60 MG SUBQ EVERY 6 MONTHS, (Reported) Docusate Sodium* (Docusate Sodium*), 100 MG ORAL PRN, (Reported) Docusate Sodium* (Colace*), 100 MG ORAL DAILY, (Reported) Econazole Nitrate (Econazole Nitrate), 1 APPLIC TOP DAILY, (Reported) Guaifenesin/Dextromethorphan (Q-Tussin Dm Syrup), 10 ML PO Q6HR, (Reported) Levetiracetam* (Levetiracetam*), 500 MG ORAL TWICE A DAY, (Reported) Levothyroxine Sodium* (Levothyroxine Sodium*), 100 MCG ORAL DAILY, (Reported) Levothyroxine Sodium* (Levothyroxine Sodium*), 125 MCG ORAL DAILY, (Reported) Linaclotide (Linzess), 145 MCG PO DAILY, (Reported) Loratadine (Loratadine), 10 MG PO PRN, (Reported) Magnesium Hydroxide* (Milk Of Magnesia*), 15 ML ORAL PRN, (Reported) Metoprolol Succinate* (Metoprolol Succinate*), 12.5 MG ORAL DAILY, (Reported) Olanzapine* (Zyprexa*), 5 MG ORAL DAILY, (Reported) Polyethylene Glycol 3350* (Miralax*), 17 GM ORAL DAILY, (Reported) Pravastatin Sod* (Pravastatin Sod*), 20 MG ORAL BEDTIME, (Reported) Scheduled PRN Acetaminophen (Acetaminophen), 325 MG PO Q4HR PRN for For Pain, (Reported) Mineral Oil/Carrageenan (Kondremul Microemulsion), 2.5 ML PO BID PRN for Per rx protocol, (Reported) Miscellaneous Medications Ipratropium/Albuterol Sulfate (Iprat-Albut 0.5-3(2.5) Mg/3 Ml), 3 ML IH, ( Reported) Patient History Limited by: medical condition History Provided By: Medical Record, PMD Healthcare decision maker Resuscitation status Full Code Advanced Directive on File No Past Medical/Surgical History Past Medical/Surgical History: (1) Hypothyroidism (2) Constipation (3) Colonoscopy planned (4) Down syndrome (5) Congenital heart disease, adult (6) History of CHF (congestive heart failure) (7) Anxiety (8) Sepsis (9) Subdural hematoma, post-traumatic (10) Pneumonia (11) Hypotension (12) Decubital ulcer Review of Systems ROS Narrative episodes of agitation Physical Exam General Appearance: confused, moderate distress, agitated, thin Last 24 Hour Vital Signs Date Time Temp Pulse Resp B/P (MAP) Pulse Ox O2 Delivery O2 Flow Rate FiO2 05/28/18 20:38 99 Nasal Cannula 2.0 28 05/28/18 20:38 81 18 Nasal Cannula 2.0 28 05/28/18 20:38 Nasal Cannula 2.0 28 05/28/18 16:00 98.1 70 20 110/60 (77) 96 05/28/18 15:45 72 05/28/18 12:27 84 05/28/18 12:00 98.0 82 20 116/59 (78) 96 05/28/18 09:57 Nasal Cannula 2.0 28 05/28/18 09:56 97 Nasal Cannula 2.0 28 05/28/18 09:55 78 20 Nasal Cannula 2.0 28 05/28/18 09:00 Nasal Cannula 2.0 05/28/18 08:00 98.0 82 20 124/55 (78) 94 05/28/18 07:59 79 05/28/18 04:00 61 05/28/18 04:00 97.8 61 20 109/54 (72) 98 05/28/18 00:00 98.2 61 20 98/58 (71) 98 05/28/18 00:00 61 Intake and Output 05/27/18 05/28/18 19:00 07:00 Intake Total 100 ml Output Total 500 ml Balance -400 ml Intake IV Total 100 ml Output Urine Total 500 ml # Voids 3 Laboratory Tests Test 05/28/18 05:50 White Blood Count 4.1 K/UL (4.8-10.8) L Red Blood Count 3.87 M/UL (4.70-6.10) L Hemoglobin 12.3 G/DL (14.2-18.0) L Hematocrit 38.2 % (42.0-52.0) L Mean Corpuscular Volume 99 FL (80-99) Mean Corpuscular Hemoglobin 31.8 PG (27.0-31.0) H Mean Corpuscular Hemoglobin Concent 32.2 G/DL (32.0-36.0) Red Cell Distribution Width 16.3 % (11.6-14.8) H Platelet Count 198 K/UL (150-450) Mean Platelet Volume 8.5 FL (6.5-10.1) Neutrophils (%) (Auto) 54.6 % (45.0-75.0) Lymphocytes (%) (Auto) 24.9 % (20.0-45.0) Monocytes (%) (Auto) 10.9 % (1.0-10.0) H Eosinophils (%) (Auto) 7.3 % (0.0-3.0) H Basophils (%) (Auto) 2.3 % (0.0-2.0) H Sodium Level 144 MMOL/L (136-145) Potassium Level 4.0 MMOL/L (3.5-5.1) Chloride Level 108 MMOL/L (98-107) H Carbon Dioxide Level 30 MMOL/L (21-32) Anion Gap 6 mmol/L (5-15) Blood Urea Nitrogen 16 mg/dL (7-18) Creatinine 1.1 MG/DL (0.55-1.30) Estimat Glomerular Filtration Rate > 60 mL/min (>60) Glucose Level 96 MG/DL (74-106) Calcium Level 9.3 MG/DL (8.5-10.1) Troponin I 0.060 ng/mL (0.000-0.056) Triglycerides Level 60 MG/DL (30-150) Cholesterol Level 156 MG/DL (< 200) LDL Cholesterol 99 mg/dL (<100) HDL Cholesterol 52 MG/DL (40-60) Cholesterol/HDL Ratio 3.0 (3.3-4.4) L Height (Feet): 5 Height (Inches): 8.00 Weight (Pounds): 107 Medications Current Medications Medications (Trade) Dose Ordered Sig/Eddy Route PRN Reason Start Time Stop Time Status Last Admin Dose Admin Acetaminophen (Tylenol) 325 mg Q4H PRN GT Mild Pain/Temp > 100.5 05/28/18 21:00 06/25/18 20:54 Albuterol/ Ipratropium (Albuterol/ Ipratropium) 3 ml Q4H PRN HHN Shortness of Breath 05/28/18 21:45 05/31/18 05:44 Bismuth Subsalicylate (Pepto-Bismol) 30 ml Q3H PRN GT Diarrhea 05/28/18 20:59 06/25/18 20:58 Docusate Sodium (Colace) 100 mg DAILY GT 05/29/18 09:00 06/27/18 08:59 Heparin Sodium (Porcine) (Heparin 5000 units/ml) 5,000 units EVERY 12 HOURS SUBQ 05/28/18 21:00 06/25/18 08:59 Levetiracetam (Keppra) 500 mg Q12HR GT 05/28/18 21:00 06/25/18 08:59 Levothyroxine Sodium (Synthroid) 125 mcg DAILY@0630 GT 05/29/18 06:30 06/26/18 06:29 Midodrine (Pro-Amatine) 2.5 mg THREE TIMES A DAY GT 05/29/18 09:00 06/26/18 17:59 Olanzapine (ZyPREXA) 5 mg BEDTIME GT 05/29/18 21:00 06/27/18 20:59 Piperacillin Sod/ Tazobactam Sod 3.375 gm/Dextrose 110 ml @ 27.5 mls/hr EVERY 8 HOURS IVPB 05/28/18 22:00 06/02/18 21:59 Sodium Chloride 1,000 ml @ 50 mls/hr Q20H IV 05/28/18 21:00 06/27/18 12:49 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
[2018-05-28] MEDS: levETIRAcetam 500mg/5ml Liquid GT SCH (21:36)
[2018-05-28] MEDS ORDERED: Albuterol/Ipratropium 3ml neb HHN PRN (21:45)
--- NOTE | 2018-05-28 21:57 | NUR ---
NURSE NOTES: RECEIVED PATIENT FROM TELE, GOT REPORT FROM CATALINA MARTIN. PATIENT IN BED, AWAKE, NONVERBAL. IV IN PLACE, PATENT, RUNNING IV FLUIDS. NO S/S RESPIRATORY DISTRESS OR PAIN NOTED. NO PATIENT BELONGINGS. SKIN ASSESSMENT DONE, PATIENT NOTED TO HAVE LEFT DTI, SACRAL REDNESS, AND SKIN TEAR ON PENIS, WCP TAKEN AND WILL BE UPLOADED. ALSO PATIENT NOTED TO HAVE BLISTER ON LEFT LEG, TEGADERM PUT ON AND PATIENT HAS PATCHES OF BLANCHABLE REDNESS ALL OVER BODY. GTUBE PLACEMENT AUSCULTATED, NO RESIDUALS, TOLERATING TUBE FEEDING. HOB ELEVATED, BED IN LOWEST POSITION, SIDE RAILS ARE PADDED. CALL LIGHT WITHIN RECH, BED ALARM ON. WILL CONTINUE TO MONITOR.
--- NOTE | 2018-05-28 22:44 | Diagnostic Imaging Report ---
APPROVED REPORT CPT Code: 57823 Present Symptoms Shortness of breath BILATERAL: Imaging reveals a patent deep venous system bilaterally. There is no evidence of thrombus within the femoral, popliteal or tibial segments. The greater saphenous veins are also within normal limits. Doppler indicates normal spontaneous flow within these segments.
[2018-05-29 00:50] VITALS: BP 94/58
[2018-05-29 04:00] VITALS: BP 105/45
--- NOTE | 2018-05-29 05:00 | NUR ---
NURSE NOTES: TUBE FEEDING TURNED OFF 1 HOUR BEFORE SYNTHROID MEDICATION IS GIVEN.
[2018-05-29] MEDS: Piperacillin/Tazobactam 3.375 GM in D5W 110 ML IVPB SCH ×3 (05:10→20:55)
[2018-05-29] MEDS: Levothyroxine 125mcg tab GT SCH (06:06)
--- NOTE | 2018-05-29 07:16 | NUR ---
HAND-OFF: Report given to ARIEL ELIAS RN.
--- NOTE | 2018-05-29 07:20 | NUR ---
NURSE NOTES: Pt received from Keeley Dye RN alert and oriented x1 responds and opens eyes to name only but is nonverbal. Gtube feed currently off (per night baker, she gave Synthroid) - 15mL gastric residual, HOB elevated and suction at bedside. IV site asymptomatic and patent, running to prescribed IV fluids and Zosyn. Bed in lowest position, call light and belongings within reach.
[2018-05-29 08:00] VITALS: BP 113/54
[2018-05-29 08:09] LABS: BASOPHILS % (AUTO) 1.5 % (0.0-2.0); EOSINOPHILS % (AUTO) 9.9 % (0.0-3.0); HEMATOCRIT 35.9 % (42.0-52.0); HEMOGLOBIN 11.6 G/DL (14.2-18.0); LYMPHOCYTES % (AUTO) 23.4 % (20.0-45.0); MEAN CORPUSCULAR VOLUME 99 FL (80-99); MONOCYTES % (AUTO) 9.7 % (1.0-10.0); NEUTROPHILS % (AUTO) 55.5 % (45.0-75.0); PLATELET COUNT 186 K/UL (150-450); RED BLOOD COUNT 3.63 M/UL (4.70-6.10); RED CELL DISTRIBUTION WIDTH 16.4 % (11.6-14.8); WHITE BLOOD COUNT 5.4 K/UL (4.8-10.8)
[2018-05-29] MEDS: levETIRAcetam 500mg/5ml Liquid GT SCH ×2 (08:20→20:54)
[2018-05-29] MEDS: Docusate 100mg/10ml Liq GT SCH (08:20)
[2018-05-29] MEDS: Heparin 5000 units/ml inj SUBQ SCH ×2 (08:24→20:55)
[2018-05-29 08:44] LABS: ALANINE AMINOTRANSFERASE 26 U/L (12-78); ALBUMIN 2.3 G/DL (3.4-5.0); ALBUMIN/GLOBULIN RATIO 0.5 (1.0-2.7); ALKALINE PHOSPHATASE 80 U/L (46-116); ANION GAP 7 mmol/L (5-15); ASPARTATE AMINO TRANSFERASE 21 U/L (15-37); BILIRUBIN,TOTAL 0.3 MG/DL (0.2-1.0); BLOOD UREA NITROGEN 11 mg/dL (7-18); CALCIUM 9.1 MG/DL (8.5-10.1); CARBON DIOXIDE 30 MMOL/L (21-32); CHLORIDE 109 MMOL/L (98-107); POTASSIUM 3.8 MMOL/L (3.5-5.1); SODIUM 146 MMOL/L (136-145)
--- NOTE | 2018-05-29 11:01 | Cardiac Electrophysiology PN ---
Assessment/Plan Assessment/Plan 1. Troponin leak. Only mildly elevated. The patient is nonverbal. EKG is nonischemic. The patient is not a candidate for any invasive cardiac procedure. Continue the patient on aspirin. Echo EF 65% 2. Hypotension. Blood pressure is better, however, likely due to sepsis. The patient is on IV antibiotic.Off Metoprolol on midodrine. 3. Hypothyroidism. On Synthroid. 4. Mental retardation. 5. History of CVA. Subjective Subjective Comfortable in NAD.Non verbal. RN at bedside. No event Objective Last 24 Hour Vital Signs Date Time Temp Pulse Resp B/P (MAP) Pulse Ox O2 Delivery O2 Flow Rate FiO2 05/29/18 09:00 Nasal Cannula 2.0 05/29/18 08:14 Nasal Cannula 2.0 28 05/29/18 08:14 78 16 Nasal Cannula 2.0 28 05/29/18 08:14 98 Nasal Cannula 2.0 28 05/29/18 08:00 98.1 57 16 113/54 (73) 100 05/29/18 04:00 97.7 65 20 105/45 (65) 97 05/29/18 00:50 97.7 65 20 94/58 (70) 97 05/28/18 21:54 Nasal Cannula 2.0 05/28/18 20:59 97.3 77 20 114/77 (89) 96 05/28/18 20:38 99 Nasal Cannula 2.0 28 05/28/18 20:38 81 18 Nasal Cannula 2.0 28 05/28/18 20:38 Nasal Cannula 2.0 28 05/28/18 20:00 98.0 70 18 115/58 (77) 95 05/28/18 16:00 98.1 70 20 110/60 (77) 96 05/28/18 15:45 72 05/28/18 12:27 84 05/28/18 12:00 98.0 82 20 116/59 (78) 96 Intake and Output 05/28/18 05/29/18 19:00 07:00 Intake Total 962.5 ml Balance 962.5 ml Intake Free Water 60 ml IV Total 587.5 ml Tube Feeding 315 ml # Voids 2 2 Laboratory Tests Test 05/29/18 07:24 White Blood Count 5.4 K/UL (4.8-10.8) Red Blood Count 3.63 M/UL (4.70-6.10) L Hemoglobin 11.6 G/DL (14.2-18.0) L Hematocrit 35.9 % (42.0-52.0) L Mean Corpuscular Volume 99 FL (80-99) Mean Corpuscular Hemoglobin 32.1 PG (27.0-31.0) H Mean Corpuscular Hemoglobin Concent 32.4 G/DL (32.0-36.0) Red Cell Distribution Width 16.4 % (11.6-14.8) H Platelet Count 186 K/UL (150-450) Mean Platelet Volume 8.3 FL (6.5-10.1) Neutrophils (%) (Auto) 55.5 % (45.0-75.0) Lymphocytes (%) (Auto) 23.4 % (20.0-45.0) Monocytes (%) (Auto) 9.7 % (1.0-10.0) Eosinophils (%) (Auto) 9.9 % (0.0-3.0) H Basophils (%) (Auto) 1.5 % (0.0-2.0) Sodium Level 146 MMOL/L (136-145) H Potassium Level 3.8 MMOL/L (3.5-5.1) Chloride Level 109 MMOL/L (98-107) H Carbon Dioxide Level 30 MMOL/L (21-32) Anion Gap 7 mmol/L (5-15) Blood Urea Nitrogen 11 mg/dL (7-18) Creatinine 1.0 MG/DL (0.55-1.30) Estimat Glomerular Filtration Rate > 60 mL/min (>60) Glucose Level 93 MG/DL (74-106) Calcium Level 9.1 MG/DL (8.5-10.1) Total Bilirubin 0.3 MG/DL (0.2-1.0) Aspartate Amino Transf (AST/SGOT) 21 U/L (15-37) Alanine Aminotransferase (ALT/SGPT) 26 U/L (12-78) Alkaline Phosphatase 80 U/L (46-116) Pro-B-Type Natriuretic Peptide 2023 pg/mL (0-125) H Total Protein 6.6 G/DL (6.4-8.2) Albumin 2.3 G/DL (3.4-5.0) L Globulin 4.3 g/dL Albumin/Globulin Ratio 0.5 (1.0-2.7) L Microbiology Date/Time Source Procedure Growth Status 05/27/18 20:00 Sputum Induced Gram Stain - Final Resulted 05/27/18 20:00 Sputum Culture - Preliminary Gram Negative Bacillus 1 Resulted Objective HEAD AND NECK: Shows no JVD. LUNGS: Coarse rhonchi. CARDIOVASCULAR: Shows regular S1 and S2 with no gallop. ABDOMEN: Soft. Status post G-tube. EXTREMITIES: 1+ pitting edema. Harlan Vargas MD May 29, 2018 11:01
--- NOTE | 2018-05-29 11:23 | General Progress Note ---
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 Assessment/Plan zyprexa 5mg qdaily provided ro Subjective Date patient seen: May 29, 2018 Allergies: Coded Allergies: SULFA (SULFONAMIDE ANTIBIOTICS) (Verified Allergy, Unknown, 09/02/15) Subjective the pr was asleep cont to have episodes of agitation Objective Last 24 Hour Vital Signs Date Time Temp Pulse Resp B/P (MAP) Pulse Ox O2 Delivery O2 Flow Rate FiO2 05/29/18 09:00 Nasal Cannula 2.0 05/29/18 08:14 Nasal Cannula 2.0 28 05/29/18 08:14 78 16 Nasal Cannula 2.0 28 05/29/18 08:14 98 Nasal Cannula 2.0 28 05/29/18 08:00 98.1 57 16 113/54 (73) 100 05/29/18 04:00 97.7 65 20 105/45 (65) 97 05/29/18 00:50 97.7 65 20 94/58 (70) 97 05/28/18 21:54 Nasal Cannula 2.0 05/28/18 20:59 97.3 77 20 114/77 (89) 96 05/28/18 20:38 99 Nasal Cannula 2.0 28 05/28/18 20:38 81 18 Nasal Cannula 2.0 28 05/28/18 20:38 Nasal Cannula 2.0 28 05/28/18 20:00 98.0 70 18 115/58 (77) 95 05/28/18 16:00 98.1 70 20 110/60 (77) 96 05/28/18 15:45 72 05/28/18 12:27 84 05/28/18 12:00 98.0 82 20 116/59 (78) 96 Intake and Output 05/28/18 05/29/18 19:00 07:00 Intake Total 962.5 ml Balance 962.5 ml Intake Free Water 60 ml IV Total 587.5 ml Tube Feeding 315 ml # Voids 2 2 Laboratory Tests 05/29/18 07:24: White Blood Count 5.4, Red Blood Count 3.63L, Hemoglobin 11.6L, Hematocrit 35.9L , Mean Corpuscular Volume 99, Mean Corpuscular Hemoglobin 32.1H, Mean Corpuscular Hemoglobin Concent 32.4, Red Cell Distribution Width 16.4H, Platelet Count 186, Mean Platelet Volume 8.3, Neutrophils (%) (Auto) 55.5, Lymphocytes (%) (Auto) 23.4, Monocytes (%) (Auto) 9.7, Eosinophils (%) (Auto) 9.9H, Basophils (%) (Auto) 1.5, Sodium Level 146H, Potassium Level 3.8, Chloride Level 109H, Carbon Dioxide Level 30, Anion Gap 7, Blood Urea Nitrogen 11, Creatinine 1.0, Estimat Glomerular Filtration Rate > 60, Glucose Level 93, Calcium Level 9.1, Total Bilirubin 0.3, Aspartate Amino Transf (AST/SGOT) 21, Alanine Aminotransferase (ALT/SGPT) 26, Alkaline Phosphatase 80, Pro-B-Type Natriuretic Peptide 2023H, Total Protein 6.6, Albumin 2.3L, Globulin 4.3, Albumin/Globulin Ratio 0.5L Height (Feet): 5 Height (Inches): 8.00 Weight (Pounds): 107 General Appearance: confused, agitated Satish Rubio MD May 29, 2018 11:23
[2018-05-29 12:00] VITALS: BP 118/60
--- NOTE | 2018-05-29 12:24 | Consultation ---
History of Present Illness General Date patient seen: May 29, 2018 Chief Complaint: General Complaint Referring physician: DR LUNA Reason for Consultation: wounds Present Illness HPI 67 y/o M with hx of Dementia, dysphagia s/p PEG, seizure disorder, non verbal, hypothyroidism, HTN, Down Syndrome, chronic subdural hematoma, CVA, RBBB, SNF resident presented to ED on 05/25 with hypotension (BP waS 86/43 at SNF). Upon admission found to have troponinemia. No fever, SOB, leukocytosis. CXR showed RLL infiltrate. Of note patient was recently treated for PNA. Allergies: Coded Allergies: SULFA (SULFONAMIDE ANTIBIOTICS) (Verified Allergy, Unknown, 09/02/15) Medication History Scheduled Aspirin Ec* (Aspirin Ec*), 81 MG ORAL DAILY, (Reported) Atorvastatin Calcium* (Atorvastatin Calcium*), 10 MG ORAL BEDTIME, (Reported) Bismuth Subsalicylate (Birdseye Bismuth), 30 ML PO Q6HR, (Reported) Calcium Carbonate (Oyster Shell Calcium), 500 MG PO TID, (Reported) Clotrimazole (Clotrimazole), 30 GM TP PRN, (Reported) Denosumab (Prolia), 60 MG SUBQ EVERY 6 MONTHS, (Reported) Docusate Sodium* (Docusate Sodium*), 100 MG ORAL PRN, (Reported) Docusate Sodium* (Colace*), 100 MG ORAL DAILY, (Reported) Econazole Nitrate (Econazole Nitrate), 1 APPLIC TOP DAILY, (Reported) Guaifenesin/Dextromethorphan (Q-Tussin Dm Syrup), 10 ML PO Q6HR, (Reported) Levetiracetam* (Levetiracetam*), 500 MG ORAL TWICE A DAY, (Reported) Levothyroxine Sodium* (Levothyroxine Sodium*), 100 MCG ORAL DAILY, (Reported) Levothyroxine Sodium* (Levothyroxine Sodium*), 125 MCG ORAL DAILY, (Reported) Linaclotide (Linzess), 145 MCG PO DAILY, (Reported) Loratadine (Loratadine), 10 MG PO PRN, (Reported) Magnesium Hydroxide* (Milk Of Magnesia*), 15 ML ORAL PRN, (Reported) Metoprolol Succinate* (Metoprolol Succinate*), 12.5 MG ORAL DAILY, (Reported) Olanzapine* (Zyprexa*), 5 MG ORAL DAILY, (Reported) Polyethylene Glycol 3350* (Miralax*), 17 GM ORAL DAILY, (Reported) Pravastatin Sod* (Pravastatin Sod*), 20 MG ORAL BEDTIME, (Reported) Scheduled PRN Acetaminophen (Acetaminophen), 325 MG PO Q4HR PRN for For Pain, (Reported) Mineral Oil/Carrageenan (Kondremul Microemulsion), 2.5 ML PO BID PRN for Per rx protocol, (Reported) Miscellaneous Medications Ipratropium/Albuterol Sulfate (Iprat-Albut 0.5-3(2.5) Mg/3 Ml), 3 ML IH, ( Reported) Patient History Healthcare decision maker Resuscitation status Full Code Advanced Directive on File No Patient History Narrative PMhx: as above Shx: Denies: smoking, alcohol use, drug use Fmhx: non contributory Review of Systems All Other Systems: negative except mentioned in HPI Physical Exam Physical Exam Narrative HEAD AND NECK: Shows no JVD. LUNGS: Coarse rhonchi. CARDIOVASCULAR: Shows regular S1 and S2 with no gallop. ABDOMEN: Soft. Status post G-tube. EXTREMITIES: 1+ pitting edema. Last 24 Hour Vital Signs Date Time Temp Pulse Resp B/P (MAP) Pulse Ox O2 Delivery O2 Flow Rate FiO2 05/29/18 09:00 Nasal Cannula 2.0 05/29/18 08:14 Nasal Cannula 2.0 28 05/29/18 08:14 78 16 Nasal Cannula 2.0 28 05/29/18 08:14 98 Nasal Cannula 2.0 28 05/29/18 08:00 98.1 57 16 113/54 (73) 100 05/29/18 04:00 97.7 65 20 105/45 (65) 97 05/29/18 00:50 97.7 65 20 94/58 (70) 97 05/28/18 21:54 Nasal Cannula 2.0 05/28/18 20:59 97.3 77 20 114/77 (89) 96 05/28/18 20:38 99 Nasal Cannula 2.0 28 05/28/18 20:38 81 18 Nasal Cannula 2.0 28 05/28/18 20:38 Nasal Cannula 2.0 28 05/28/18 20:00 98.0 70 18 115/58 (77) 95 05/28/18 16:00 98.1 70 20 110/60 (77) 96 05/28/18 15:45 72 05/28/18 12:27 84 Intake and Output 05/28/18 05/29/18 19:00 07:00 Intake Total 962.5 ml Balance 962.5 ml Intake Free Water 60 ml IV Total 587.5 ml Tube Feeding 315 ml # Voids 2 2 Laboratory Tests Test 05/29/18 07:24 White Blood Count 5.4 K/UL (4.8-10.8) Red Blood Count 3.63 M/UL (4.70-6.10) L Hemoglobin 11.6 G/DL (14.2-18.0) L Hematocrit 35.9 % (42.0-52.0) L Mean Corpuscular Volume 99 FL (80-99) Mean Corpuscular Hemoglobin 32.1 PG (27.0-31.0) H Mean Corpuscular Hemoglobin Concent 32.4 G/DL (32.0-36.0) Red Cell Distribution Width 16.4 % (11.6-14.8) H Platelet Count 186 K/UL (150-450) Mean Platelet Volume 8.3 FL (6.5-10.1) Neutrophils (%) (Auto) 55.5 % (45.0-75.0) Lymphocytes (%) (Auto) 23.4 % (20.0-45.0) Monocytes (%) (Auto) 9.7 % (1.0-10.0) Eosinophils (%) (Auto) 9.9 % (0.0-3.0) H Basophils (%) (Auto) 1.5 % (0.0-2.0) Sodium Level 146 MMOL/L (136-145) H Potassium Level 3.8 MMOL/L (3.5-5.1) Chloride Level 109 MMOL/L (98-107) H Carbon Dioxide Level 30 MMOL/L (21-32) Anion Gap 7 mmol/L (5-15) Blood Urea Nitrogen 11 mg/dL (7-18) Creatinine 1.0 MG/DL (0.55-1.30) Estimat Glomerular Filtration Rate > 60 mL/min (>60) Glucose Level 93 MG/DL (74-106) Calcium Level 9.1 MG/DL (8.5-10.1) Total Bilirubin 0.3 MG/DL (0.2-1.0) Aspartate Amino Transf (AST/SGOT) 21 U/L (15-37) Alanine Aminotransferase (ALT/SGPT) 26 U/L (12-78) Alkaline Phosphatase 80 U/L (46-116) Pro-B-Type Natriuretic Peptide 2023 pg/mL (0-125) H Total Protein 6.6 G/DL (6.4-8.2) Albumin 2.3 G/DL (3.4-5.0) L Globulin 4.3 g/dL Albumin/Globulin Ratio 0.5 (1.0-2.7) L Height (Feet): 5 Height (Inches): 8.00 Weight (Pounds): 107 Medications Current Medications Medications (Trade) Dose Ordered Sig/Eddy Route PRN Reason Start Time Stop Time Status Last Admin Dose Admin Acetaminophen (Tylenol) 325 mg Q4H PRN GT Mild Pain/Temp > 100.5 05/28/18 21:00 06/25/18 20:54 Albuterol/ Ipratropium (Albuterol/ Ipratropium) 3 ml Q4H PRN HHN Shortness of Breath 05/28/18 21:45 05/31/18 05:44 Bismuth Subsalicylate (Pepto-Bismol) 30 ml Q3H PRN GT Diarrhea 05/28/18 20:59 06/25/18 20:58 Docusate Sodium (Colace) 100 mg DAILY GT 05/29/18 09:00 06/27/18 08:59 05/29/18 08:20 Heparin Sodium (Porcine) (Heparin 5000 units/ml) 5,000 units EVERY 12 HOURS SUBQ 05/28/18 21:00 06/25/18 08:59 05/29/18 08:24 Levetiracetam (Keppra) 500 mg Q12HR GT 05/28/18 21:00 06/25/18 08:59 05/29/18 08:20 Levothyroxine Sodium (Synthroid) 125 mcg DAILY@0630 GT 05/29/18 06:30 06/26/18 06:29 05/29/18 06:06 Midodrine (Pro-Amatine) 2.5 mg THREE TIMES A DAY GT 05/29/18 09:00 06/26/18 17:59 05/29/18 08:22 Olanzapine (ZyPREXA) 5 mg BEDTIME GT 05/29/18 21:00 06/27/18 20:59 Piperacillin Sod/ Tazobactam Sod 3.375 gm/Dextrose 110 ml @ 27.5 mls/hr EVERY 8 HOURS IVPB 05/28/18 22:00 06/02/18 21:59 05/29/18 05:10 Sodium Chloride 1,000 ml @ 50 mls/hr Q20H IV 05/28/18 21:00 06/27/18 12:49 05/28/18 21:42 Assessment/Plan Assessment/Plan Abx: Zosyn 05/25 Assessment: Transient hypotenson (?sepsis) Probable PNA -CXR: There is worsening of aeration with increasing left basilar opacities. Likely trace left pleural effusion. Opacities in the medial right base. No pneumothorax. -sp cx p Afebrile No leukocytosis MISHEL, improving Troponinemia Dementia dysphagia s/p PEG seizure disorder non verbal hypothyroidism HTN Down Syndrome chronic subdural hematoma CVA RBBB SNF resident Plan: -Continue empiric Zosyn #5/7-10 pending sp cx -f/u cx -Monitor CBC/CMP, temperatures -aspiration precautions Thank you for this consultation. Will continue to follow along with you. Discussed with Shonna Husain M.D. May 29, 2018 12:24
--- NOTE | 2018-05-29 13:48 | Pulmonology Progress Note ---
Assessment/Plan Problems: (1) Sepsis (2) Pneumonia (3) Hypotension (4) Decubital ulcer (5) Down syndrome (6) Hypothyroidism (7) Congenital heart disease, adult Assessment/Plan looks better check electrolytes check Echo ID evaluation appreciated check electrolytes dvt prophylaxis. Subjective ROS Limited/Unobtainable: No Constitutional: Reports: no symptoms HEENT: Repors: no symptoms Respiratory: Reports: no symptoms Allergies: Coded Allergies: SULFA (SULFONAMIDE ANTIBIOTICS) (Verified Allergy, Unknown, 09/02/15) Objective Last 24 Hour Vital Signs Date Time Temp Pulse Resp B/P (MAP) Pulse Ox O2 Delivery O2 Flow Rate FiO2 05/29/18 09:00 Nasal Cannula 2.0 05/29/18 08:14 Nasal Cannula 2.0 28 05/29/18 08:14 78 16 Nasal Cannula 2.0 28 05/29/18 08:14 98 Nasal Cannula 2.0 28 05/29/18 08:00 98.1 57 16 113/54 (73) 100 05/29/18 04:00 97.7 65 20 105/45 (65) 97 05/29/18 00:50 97.7 65 20 94/58 (70) 97 05/28/18 21:54 Nasal Cannula 2.0 05/28/18 20:59 97.3 77 20 114/77 (89) 96 05/28/18 20:38 99 Nasal Cannula 2.0 28 05/28/18 20:38 81 18 Nasal Cannula 2.0 28 05/28/18 20:38 Nasal Cannula 2.0 28 05/28/18 20:00 98.0 70 18 115/58 (77) 95 05/28/18 16:00 98.1 70 20 110/60 (77) 96 05/28/18 15:45 72 Intake and Output 05/28/18 05/29/18 19:00 07:00 Intake Total 962.5 ml Balance 962.5 ml Intake Free Water 60 ml IV Total 587.5 ml Tube Feeding 315 ml # Voids 2 2 General Appearance: cachetic HEENT: normocephalic, atraumatic Respiratory/Chest: chest wall non-tender, lungs clear Cardiovascular: normal peripheral pulses, normal rate Abdomen: normal bowel sounds, no organomegaly Genitourinary: normal external genitalia 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: 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 Microbiology Date/Time Source Procedure Growth Status 05/27/18 20:00 Sputum Induced Gram Stain - Final Resulted 05/27/18 20:00 Sputum Culture - Preliminary Gram Negative Bacillus 1 Resulted Laboratory Tests 05/29/18 07:24: White Blood Count 5.4, Red Blood Count 3.63L, Hemoglobin 11.6L, Hematocrit 35.9L , Mean Corpuscular Volume 99, Mean Corpuscular Hemoglobin 32.1H, Mean Corpuscular Hemoglobin Concent 32.4, Red Cell Distribution Width 16.4H, Platelet Count 186, Mean Platelet Volume 8.3, Neutrophils (%) (Auto) 55.5, Lymphocytes (%) (Auto) 23.4, Monocytes (%) (Auto) 9.7, Eosinophils (%) (Auto) 9.9H, Basophils (%) (Auto) 1.5, Sodium Level 146H, Potassium Level 3.8, Chloride Level 109H, Carbon Dioxide Level 30, Anion Gap 7, Blood Urea Nitrogen 11, Creatinine 1.0, Estimat Glomerular Filtration Rate > 60, Glucose Level 93, Calcium Level 9.1, Total Bilirubin 0.3, Aspartate Amino Transf (AST/SGOT) 21, Alanine Aminotransferase (ALT/SGPT) 26, Alkaline Phosphatase 80, Pro-B-Type Natriuretic Peptide 2023H, Total Protein 6.6, Albumin 2.3L, Globulin 4.3, Albumin/Globulin Ratio 0.5L Current Medications Medications (Trade) Dose Ordered Sig/Eddy Route PRN Reason Start Time Stop Time Status Last Admin Dose Admin Acetaminophen (Tylenol) 325 mg Q4H PRN GT Mild Pain/Temp > 100.5 05/28/18 21:00 06/25/18 20:54 Albuterol/ Ipratropium (Albuterol/ Ipratropium) 3 ml Q4H PRN HHN Shortness of Breath 05/28/18 21:45 05/31/18 05:44 Bismuth Subsalicylate (Pepto-Bismol) 30 ml Q3H PRN GT Diarrhea 05/28/18 20:59 06/25/18 20:58 Docusate Sodium (Colace) 100 mg DAILY GT 05/29/18 09:00 06/27/18 08:59 05/29/18 08:20 Heparin Sodium (Porcine) (Heparin 5000 units/ml) 5,000 units EVERY 12 HOURS SUBQ 05/28/18 21:00 06/25/18 08:59 05/29/18 08:24 Levetiracetam (Keppra) 500 mg Q12HR GT 05/28/18 21:00 06/25/18 08:59 05/29/18 08:20 Levothyroxine Sodium (Synthroid) 125 mcg DAILY@0630 GT 05/29/18 06:30 06/26/18 06:29 05/29/18 06:06 Midodrine (Pro-Amatine) 2.5 mg THREE TIMES A DAY GT 05/29/18 09:00 06/26/18 17:59 05/29/18 08:22 Olanzapine (ZyPREXA) 5 mg BEDTIME GT 05/29/18 21:00 06/27/18 20:59 Piperacillin Sod/ Tazobactam Sod 3.375 gm/Dextrose 110 ml @ 27.5 mls/hr EVERY 8 HOURS IVPB 05/28/18 22:00 06/02/18 21:59 05/29/18 05:10 Sodium Chloride 1,000 ml @ 50 mls/hr Q20H IV 05/28/18 21:00 06/27/18 12:49 05/28/18 21:42 Chapin Schreiber MD May 29, 2018 13:48
--- NOTE | 2018-05-29 14:30 | NUR ---
NURSE NOTES:WOUND CARE NOTES:Pt presents with incontinence associated dermatitis perineal area and buttocks, erythema noted. Intact serous blister noted to posterior L tibia,surrounding skin is pink and intact. Stable brown eschar noted to L heel(L)0.7cm x (W)0.9cm.Periwound without erythema or fluctuance.R heel boggy but blanchable.Diffused red rash noted to bilat lower ext. No other areas of skin concerns noted. Tx.Plan:Maintain Tegaderm to Blister L Tibia until drsg loosens, or blister breaks. Apply Triad to Buttocks and groin areas with each perineal care. Apply Cavilon Skin barrier to both heels .Off-load heels with pillow. Reposition at least every 2hours or as tolerated. Support surface mattress.
[2018-05-29 16:00] VITALS: BP 112/56
--- NOTE | 2018-05-29 16:29 | Internal Med Progress Note ---
Subjective Date of Service: May 29, 2018 Physician Name BergAmor Attending Physician Jasen Steward MD Current Medications Medications (Trade) Dose Ordered Sig/Eddy Route PRN Reason Start Time Stop Time Status Last Admin Dose Admin Acetaminophen (Tylenol) 325 mg Q4H PRN GT Mild Pain/Temp > 100.5 05/28/18 21:00 06/25/18 20:54 Albuterol/ Ipratropium (Albuterol/ Ipratropium) 3 ml Q4H PRN HHN Shortness of Breath 05/28/18 21:45 05/31/18 05:44 Bismuth Subsalicylate (Pepto-Bismol) 30 ml Q3H PRN GT Diarrhea 05/28/18 20:59 06/25/18 20:58 Docusate Sodium (Colace) 100 mg DAILY GT 05/29/18 09:00 06/27/18 08:59 05/29/18 08:20 Heparin Sodium (Porcine) (Heparin 5000 units/ml) 5,000 units EVERY 12 HOURS SUBQ 05/28/18 21:00 06/25/18 08:59 05/29/18 08:24 Levetiracetam (Keppra) 500 mg Q12HR GT 05/28/18 21:00 06/25/18 08:59 05/29/18 08:20 Levothyroxine Sodium (Synthroid) 125 mcg DAILY@0630 GT 05/29/18 06:30 06/26/18 06:29 05/29/18 06:06 Midodrine (Pro-Amatine) 2.5 mg THREE TIMES A DAY GT 05/29/18 09:00 06/26/18 17:59 05/29/18 14:31 Olanzapine (ZyPREXA) 5 mg BEDTIME GT 05/29/18 21:00 06/27/18 20:59 Piperacillin Sod/ Tazobactam Sod 3.375 gm/Dextrose 110 ml @ 27.5 mls/hr EVERY 8 HOURS IVPB 05/28/18 22:00 06/02/18 21:59 05/29/18 15:58 Sodium Chloride 1,000 ml @ 50 mls/hr Q20H IV 05/28/18 21:00 06/27/18 12:49 05/29/18 14:52 Allergies: Coded Allergies: SULFA (SULFONAMIDE ANTIBIOTICS) (Verified Allergy, Unknown, 09/02/15) ROS Limited/Unobtainable: Yes Subjective 67 YO M admitted with hypotension. Now pneumonia. Cover for Int Piero-Dr Steward Objective Last Vital Signs Date Time Temp Pulse Resp B/P (MAP) Pulse Ox O2 Delivery O2 Flow Rate FiO2 05/29/18 16:00 97.4 74 16 112/56 (74) 100 05/29/18 09:00 Nasal Cannula 2.0 05/29/18 08:14 28 Laboratory Tests Test 05/29/18 07:24 White Blood Count 5.4 K/UL (4.8-10.8) Red Blood Count 3.63 M/UL (4.70-6.10) L Hemoglobin 11.6 G/DL (14.2-18.0) L Hematocrit 35.9 % (42.0-52.0) L Mean Corpuscular Volume 99 FL (80-99) Mean Corpuscular Hemoglobin 32.1 PG (27.0-31.0) H Mean Corpuscular Hemoglobin Concent 32.4 G/DL (32.0-36.0) Red Cell Distribution Width 16.4 % (11.6-14.8) H Platelet Count 186 K/UL (150-450) Mean Platelet Volume 8.3 FL (6.5-10.1) Neutrophils (%) (Auto) 55.5 % (45.0-75.0) Lymphocytes (%) (Auto) 23.4 % (20.0-45.0) Monocytes (%) (Auto) 9.7 % (1.0-10.0) Eosinophils (%) (Auto) 9.9 % (0.0-3.0) H Basophils (%) (Auto) 1.5 % (0.0-2.0) Sodium Level 146 MMOL/L (136-145) H Potassium Level 3.8 MMOL/L (3.5-5.1) Chloride Level 109 MMOL/L (98-107) H Carbon Dioxide Level 30 MMOL/L (21-32) Anion Gap 7 mmol/L (5-15) Blood Urea Nitrogen 11 mg/dL (7-18) Creatinine 1.0 MG/DL (0.55-1.30) Estimat Glomerular Filtration Rate > 60 mL/min (>60) Glucose Level 93 MG/DL (74-106) Calcium Level 9.1 MG/DL (8.5-10.1) Total Bilirubin 0.3 MG/DL (0.2-1.0) Aspartate Amino Transf (AST/SGOT) 21 U/L (15-37) Alanine Aminotransferase (ALT/SGPT) 26 U/L (12-78) Alkaline Phosphatase 80 U/L (46-116) Pro-B-Type Natriuretic Peptide 2023 pg/mL (0-125) H Total Protein 6.6 G/DL (6.4-8.2) Albumin 2.3 G/DL (3.4-5.0) L Globulin 4.3 g/dL Albumin/Globulin Ratio 0.5 (1.0-2.7) L Microbiology Date/Time Source Procedure Growth Status 05/27/18 20:00 Sputum Induced Gram Stain - Final Resulted 05/27/18 20:00 Sputum Culture - Preliminary Gram Negative Bacillus 1 Resulted Intake and Output 05/28/18 05/29/18 19:00 07:00 Intake Total 962.5 ml Balance 962.5 ml Intake Free Water 60 ml IV Total 587.5 ml Tube Feeding 315 ml # Voids 2 2 Objective PHYSICAL EXAMINATION: GENERAL: The patient is a well-developed, well-nourished, nonverbal white male, in no apparent distress. HEENT: Eyes, pupils equal and responsive to light and accommodation. Extraocular movements are intact. NECK: Supple without lymphadenopathy. CHEST: Decreased breath sounds at bilateral bases with crackles bilaterally, otherwise without wheezes or rales. CARDIOVASCULAR: Regular rhythm and rate. S1, S2 normal without murmurs, rubs, or gallops. ABDOMEN: Soft, nontender, nondistended. Positive bowel sounds. No evidence of hepatosplenomegaly. Currently, no rebound or guarding noted. EXTREMITIES: Negative for clubbing, cyanosis, or edema. RECTAL: Not performed. GENITAL: Not performed. NEUROLOGICAL: Unable to assess. Assessment/Plan Assessment/Plan ASSESSMENT: This is a 67-year-old white male with: 1. Recent pneumonia. 2. Hypotension. 3. Elevated troponin. 4. Congestive heart failure. 5. Down syndrome. 6. Mental retardation. 7. Cerebrovascular disease. 8. Chronic subdural hematoma. 9. Dysphagia. 10. Right bundle-branch block. 11. Acute on chronic renal failure. 12. Sacral and left heel Decubitus Ulcer stage II-see surgery note. TREATMENT: 1. Pneumonia/hypotension. Infectious Disease consultation has been obtained with Dr. Arteaga. The patient has been started empirically on Zosyn. We will follow recommendations of Infectious Disease and Pulmonary. Hypotension may be secondary to sepsis. 2. Elevated troponin/congestive heart failure. Cardiology consultation has been obtained with Dr. Vargas. 3. Down syndrome. 4. Renal failure. The patient is currently receiving intravenous fluids. 5. Cerebrovascular disease/chronic subdural hematoma. 6. Dysphagia. The patient is currently on G-tube feedings. 7. Right bundle-branch block. 8. Discharge planning Amor Berg MD May 29, 2018 16:29
--- NOTE | 2018-05-29 16:53 | Diagnostic Imaging Report ---
Indication: Dyspnea Technique: One view of the chest Comparison: 05/28/2018 Findings: Bilateral interstitial edema is again demonstrated, slightly worsened on the prior study. There is also some airspace consolidation in the perihilar regions bilaterally. There is a small left pleural effusion again demonstrated. Gastrostomy remains. Impression: Slight worsening of interstitial edema, over one day. Other findings as noted
--- NOTE | 2018-05-29 19:35 | NUR ---
HAND-OFF: Report given to Bernard Young RN.
--- NOTE | 2018-05-29 19:42 | NUR ---
NURSE NOTES: Received patient asleep,tolerating his g-tube feeding well.Kept clean and dry.
[2018-05-29 20:21] VITALS: BP 98/52
[2018-05-30] VITALS: BP 109/62
[2018-05-30 04:00] VITALS: BP 101/56
[2018-05-30] MEDS: Piperacillin/Tazobactam 3.375 GM in D5W 110 ML IVPB SCH ×3 (05:09→21:49)
[2018-05-30] MEDS: Levothyroxine 125mcg tab GT SCH (05:09)
[2018-05-30 07:13] LABS: EOSINOPHILS % (AUTO) 11.1 % (0.0-3.0); HEMATOCRIT 38.8 % (42.0-52.0); HEMOGLOBIN 12.6 G/DL (14.2-18.0); LYMPHOCYTES % (AUTO) 26.2 % (20.0-45.0); MEAN CORPUSCULAR VOLUME 98 FL (80-99); MONOCYTES % (AUTO) 9.3 % (1.0-10.0); NEUTROPHILS % (AUTO) 51.4 % (45.0-75.0); PLATELET COUNT 195 K/UL (150-450); RED BLOOD COUNT 3.96 M/UL (4.70-6.10); RED CELL DISTRIBUTION WIDTH 16.6 % (11.6-14.8); WHITE BLOOD COUNT 5.8 K/UL (4.8-10.8)
--- NOTE | 2018-05-30 07:17 | NUR ---
HAND-OFF: Report given to Kp Renee RN.
[2018-05-30 07:18] LABS: ANION GAP 6 mmol/L (5-15); BLOOD UREA NITROGEN 11 mg/dL (7-18); CALCIUM 9.4 MG/DL (8.5-10.1); CARBON DIOXIDE 32 MMOL/L (21-32); CHLORIDE 107 MMOL/L (98-107); POTASSIUM 4.3 MMOL/L (3.5-5.1); SODIUM 145 MMOL/L (136-145)
--- NOTE | 2018-05-30 07:35 | NUR ---
NURSE NOTES: RN received from Bernard Young RN alert and oriented x1, nonverbal. No complaints or s/s of pain, SOB, or n/v. IV site asymptomatic and patent. Gtube feed tolerated - no gastric residual, HOB elevated, suction at bedside. Bed in lowest position, call light and belongings within reach.
[2018-05-30 08:00] VITALS: BP 105/60
[2018-05-30] MEDS: levETIRAcetam 500mg/5ml Liquid GT SCH ×2 (08:43→21:47)
[2018-05-30] MEDS: Docusate 100mg/10ml Liq GT SCH (08:43)
[2018-05-30] MEDS: Heparin 5000 units/ml inj SUBQ SCH ×2 (08:45→21:48)
--- NOTE | 2018-05-30 11:45 | General Progress Note ---
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 Status: stable Assessment/Plan zyprexa 5mg qdaily provided ro Subjective 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: Reports: anxiety Allergies: Coded Allergies: SULFA (SULFONAMIDE ANTIBIOTICS) (Verified Allergy, Unknown, 09/02/15) Subjective the pr was asleep cont to have episodes of agitation alert and oriented to self Objective Last 24 Hour Vital Signs Date Time Temp Pulse Resp B/P (MAP) Pulse Ox O2 Delivery O2 Flow Rate FiO2 05/30/18 09:00 Nasal Cannula 2.0 05/30/18 08:00 97.0 56 17 105/60 (75) 95 05/30/18 04:00 96.8 56 16 101/56 (71) 94 05/30/18 00:00 96.4 68 18 109/62 (78) 100 05/29/18 20:21 97.3 64 18 98/52 (67) 92 05/29/18 20:10 Nasal Cannula 2.0 05/29/18 16:00 97.4 74 16 112/56 (74) 100 05/29/18 12:00 97.8 62 16 118/60 (79) 100 Intake and Output 05/29/18 05/30/18 19:00 07:00 Intake Total 677.5 ml 1012.5 ml Balance 677.5 ml 1012.5 ml Intake Free Water 100 ml 120 ml IV Total 82.5 ml 442.5 ml Tube Feeding 495 ml 450 ml # Voids 4 3 # Bowel Movements 2 Laboratory Tests 05/30/18 06:30: White Blood Count 5.8, Red Blood Count 3.96L, Hemoglobin 12.6L, Hematocrit 38.8L , Mean Corpuscular Volume 98, Mean Corpuscular Hemoglobin 31.9H, Mean Corpuscular Hemoglobin Concent 32.6, Red Cell Distribution Width 16.6H, Platelet Count 195, Mean Platelet Volume 9.1, Neutrophils (%) (Auto) 51.4, Lymphocytes (%) (Auto) 26.2, Monocytes (%) (Auto) 9.3, Eosinophils (%) (Auto) 11.1H, Basophils (%) (Auto) 2.0, Sodium Level 145, Potassium Level 4.3, Chloride Level 107, Carbon Dioxide Level 32, Anion Gap 6, Blood Urea Nitrogen 11 , Creatinine 1.0, Estimat Glomerular Filtration Rate > 60, Glucose Level 90, Calcium Level 9.4 Height (Feet): 5 Height (Inches): 8.00 Weight (Pounds): 108 General Appearance: alert, confused Satish Rubio MD May 30, 2018 11:45
[2018-05-30 12:00] VITALS: BP 110/60
--- NOTE | 2018-05-30 12:27 | Cardiac Electrophysiology PN ---
Assessment/Plan Assessment/Plan 1. Troponin leak. Only mildly elevated. The patient is nonverbal. EKG is nonischemic. The patient is not a candidate for any invasive cardiac procedure. Continue the patient on aspirin. Echo EF 65% 2. Hypotension. Blood pressure is better, however, likely due to sepsis. The patient is on IV antibiotic.Off Metoprolol on midodrine. 3. Hypothyroidism. On Synthroid. 4. Mental retardation. 5. History of CVA. 6. Hypernatremia, change iv fluid to 1/2 NS RN Subjective Subjective Comfortable in NAD.Non verbal. No event Objective Last 24 Hour Vital Signs Date Time Temp Pulse Resp B/P (MAP) Pulse Ox O2 Delivery O2 Flow Rate FiO2 05/30/18 09:00 Nasal Cannula 2.0 05/30/18 08:00 97.0 56 17 105/60 (75) 95 05/30/18 04:00 96.8 56 16 101/56 (71) 94 05/30/18 00:00 96.4 68 18 109/62 (78) 100 05/29/18 20:21 97.3 64 18 98/52 (67) 92 05/29/18 20:10 Nasal Cannula 2.0 05/29/18 16:00 97.4 74 16 112/56 (74) 100 Intake and Output 05/29/18 05/30/18 19:00 07:00 Intake Total 677.5 ml 1012.5 ml Balance 677.5 ml 1012.5 ml Intake Free Water 100 ml 120 ml IV Total 82.5 ml 442.5 ml Tube Feeding 495 ml 450 ml # Voids 4 3 # Bowel Movements 2 Laboratory Tests Test 05/30/18 06:30 White Blood Count 5.8 K/UL (4.8-10.8) Red Blood Count 3.96 M/UL (4.70-6.10) L Hemoglobin 12.6 G/DL (14.2-18.0) L Hematocrit 38.8 % (42.0-52.0) L Mean Corpuscular Volume 98 FL (80-99) Mean Corpuscular Hemoglobin 31.9 PG (27.0-31.0) H Mean Corpuscular Hemoglobin Concent 32.6 G/DL (32.0-36.0) Red Cell Distribution Width 16.6 % (11.6-14.8) H Platelet Count 195 K/UL (150-450) Mean Platelet Volume 9.1 FL (6.5-10.1) Neutrophils (%) (Auto) 51.4 % (45.0-75.0) Lymphocytes (%) (Auto) 26.2 % (20.0-45.0) Monocytes (%) (Auto) 9.3 % (1.0-10.0) Eosinophils (%) (Auto) 11.1 % (0.0-3.0) H Basophils (%) (Auto) 2.0 % (0.0-2.0) Sodium Level 145 MMOL/L (136-145) Potassium Level 4.3 MMOL/L (3.5-5.1) Chloride Level 107 MMOL/L (98-107) Carbon Dioxide Level 32 MMOL/L (21-32) Anion Gap 6 mmol/L (5-15) Blood Urea Nitrogen 11 mg/dL (7-18) Creatinine 1.0 MG/DL (0.55-1.30) Estimat Glomerular Filtration Rate > 60 mL/min (>60) Glucose Level 90 MG/DL (74-106) Calcium Level 9.4 MG/DL (8.5-10.1) Microbiology Date/Time Source Procedure Growth Status 05/27/18 20:00 Sputum Induced Gram Stain - Final Resulted 05/27/18 20:00 Sputum Culture - Preliminary Gram Negative Bacillus 1 Gram Negative Bacillus 2 Resulted Objective HEAD AND NECK: No JVD. LUNGS: Coarse rhonchi. CARDIOVASCULAR: Regular S1 and S2 with no gallop. ABDOMEN: Soft. Status post G-tube. EXTREMITIES: 1+ pitting edema. Harlan Vargas MD May 30, 2018 12:27
--- NOTE | 2018-05-30 13:14 | Pulmonology Progress Note ---
Assessment/Plan Problems: (1) Sepsis (2) Pneumonia (3) Hypotension (4) Decubital ulcer (5) Down syndrome (6) Hypothyroidism (7) Congenital heart disease, adult Assessment/Plan sputum has GNR, sensitivity pending, on Zosyn looks better check electrolytes check Echo ID evaluation appreciated check electrolytes dvt prophylaxis. Subjective ROS Limited/Unobtainable: No Constitutional: Reports: no symptoms HEENT: Repors: no symptoms Respiratory: Reports: no symptoms Allergies: Coded Allergies: SULFA (SULFONAMIDE ANTIBIOTICS) (Verified Allergy, Unknown, 09/02/15) Objective Last 24 Hour Vital Signs Date Time Temp Pulse Resp B/P (MAP) Pulse Ox O2 Delivery O2 Flow Rate FiO2 05/30/18 12:00 97.6 60 18 110/60 (77) 97 05/30/18 09:00 Nasal Cannula 2.0 05/30/18 08:00 97.0 56 17 105/60 (75) 95 05/30/18 04:00 96.8 56 16 101/56 (71) 94 05/30/18 00:00 96.4 68 18 109/62 (78) 100 05/29/18 20:21 97.3 64 18 98/52 (67) 92 05/29/18 20:10 Nasal Cannula 2.0 05/29/18 16:00 97.4 74 16 112/56 (74) 100 Intake and Output 05/29/18 05/30/18 19:00 07:00 Intake Total 677.5 ml 1012.5 ml Balance 677.5 ml 1012.5 ml Intake Free Water 100 ml 120 ml IV Total 82.5 ml 442.5 ml Tube Feeding 495 ml 450 ml # Voids 4 3 # Bowel Movements 2 General Appearance: WD/WN HEENT: normocephalic, atraumatic Respiratory/Chest: chest wall non-tender, lungs clear Cardiovascular: normal peripheral pulses, regular rhythm Abdomen: normal bowel sounds, soft, non tender Genitourinary: normal external genitalia Skin: no rash Microbiology Date/Time Source Procedure Growth Status 05/27/18 20:00 Sputum Induced Gram Stain - Final Resulted 05/27/18 20:00 Sputum Culture - Preliminary Gram Negative Bacillus 1 Gram Negative Bacillus 2 Resulted Laboratory Tests 05/30/18 06:30: White Blood Count 5.8, Red Blood Count 3.96L, Hemoglobin 12.6L, Hematocrit 38.8L , Mean Corpuscular Volume 98, Mean Corpuscular Hemoglobin 31.9H, Mean Corpuscular Hemoglobin Concent 32.6, Red Cell Distribution Width 16.6H, Platelet Count 195, Mean Platelet Volume 9.1, Neutrophils (%) (Auto) 51.4, Lymphocytes (%) (Auto) 26.2, Monocytes (%) (Auto) 9.3, Eosinophils (%) (Auto) 11.1H, Basophils (%) (Auto) 2.0, Sodium Level 145, Potassium Level 4.3, Chloride Level 107, Carbon Dioxide Level 32, Anion Gap 6, Blood Urea Nitrogen 11 , Creatinine 1.0, Estimat Glomerular Filtration Rate > 60, Glucose Level 90, Calcium Level 9.4 Current Medications Medications (Trade) Dose Ordered Sig/Eddy Route PRN Reason Start Time Stop Time Status Last Admin Dose Admin Acetaminophen (Tylenol) 325 mg Q4H PRN GT Mild Pain/Temp > 100.5 05/28/18 21:00 06/25/18 20:54 Albuterol/ Ipratropium (Albuterol/ Ipratropium) 3 ml Q4H PRN HHN Shortness of Breath 05/28/18 21:45 05/31/18 05:44 Bismuth Subsalicylate (Pepto-Bismol) 30 ml Q3H PRN GT Diarrhea 05/28/18 20:59 06/25/18 20:58 Docusate Sodium (Colace) 100 mg DAILY GT 05/29/18 09:00 06/27/18 08:59 05/30/18 08:43 Heparin Sodium (Porcine) (Heparin 5000 units/ml) 5,000 units EVERY 12 HOURS SUBQ 05/28/18 21:00 06/25/18 08:59 05/30/18 08:45 Levetiracetam (Keppra) 500 mg Q12HR GT 05/28/18 21:00 06/25/18 08:59 05/30/18 08:43 Levothyroxine Sodium (Synthroid) 125 mcg DAILY@0630 GT 05/29/18 06:30 06/26/18 06:29 05/30/18 05:09 Midodrine (Pro-Amatine) 2.5 mg THREE TIMES A DAY GT 05/29/18 09:00 06/26/18 17:59 05/30/18 08:43 Olanzapine (ZyPREXA) 5 mg BEDTIME GT 05/29/18 21:00 06/27/18 20:59 05/29/18 20:54 Piperacillin Sod/ Tazobactam Sod 3.375 gm/Dextrose 110 ml @ 27.5 mls/hr EVERY 8 HOURS IVPB 05/28/18 22:00 06/02/18 21:59 05/30/18 05:09 Sodium Chloride 1,000 ml @ 50 mls/hr Q20H IV 05/30/18 11:30 06/29/18 11:29 Chapin Schreiber MD May 30, 2018 13:13
--- NOTE | 2018-05-30 14:08 | Infectious Diseases Prog Note ---
Assessment/Plan Assessment/Plan Abx: Zosyn 05/25 Assessment: Transient hypotenson (?sepsis) Probable PNA vs CHF -CXR: There is worsening of aeration with increasing left basilar opacities. Likely trace left pleural effusion. Opacities in the medial right base. No pneumothorax. -sp cx GNB #1, #2 Afebrile No leukocytosis MISHEL, improving Troponinemia Dementia dysphagia s/p PEG seizure disorder non verbal hypothyroidism HTN Down Syndrome chronic subdural hematoma CVA [facility] SNF resident Plan: -Continue empiric Zosyn #6/7-10 pending sp cx -f/u cx -Monitor CBC/CMP, temperatures -aspiration precautions Thank you for this consultation. Will continue to follow along with you. Discussed with RN. Subjective Allergies: Coded Allergies: SULFA (SULFONAMIDE ANTIBIOTICS) (Verified Allergy, Unknown, 09/02/15) Subjective afebrile no leukocytosis at 2l NC Objective Vital Signs Last 24 Hour Vital Signs Date Time Temp Pulse Resp B/P (MAP) Pulse Ox O2 Delivery O2 Flow Rate FiO2 05/30/18 12:00 97.6 60 18 110/60 (77) 97 05/30/18 09:00 Nasal Cannula 2.0 05/30/18 08:00 97.0 56 17 105/60 (75) 95 05/30/18 04:00 96.8 56 16 101/56 (71) 94 05/30/18 00:00 96.4 68 18 109/62 (78) 100 05/29/18 20:21 97.3 64 18 98/52 (67) 92 05/29/18 20:10 Nasal Cannula 2.0 05/29/18 16:00 97.4 74 16 112/56 (74) 100 Height (Feet): 5 Height (Inches): 8.00 Weight (Pounds): 108 Objective HEAD AND NECK: Shows no JVD. LUNGS: Coarse rhonchi. CARDIOVASCULAR: Shows regular S1 and S2 with no gallop. ABDOMEN: Soft. Status post G-tube. EXTREMITIES: 1+ pitting edema. Microbiology Date/Time Source Procedure Growth Status 05/27/18 20:00 Sputum Induced Gram Stain - Final Resulted 05/27/18 20:00 Sputum Culture - Preliminary Gram Negative Bacillus 1 Gram Negative Bacillus 2 Resulted Laboratory Tests Test 05/30/18 06:30 White Blood Count 5.8 K/UL (4.8-10.8) Red Blood Count 3.96 M/UL (4.70-6.10) L Hemoglobin 12.6 G/DL (14.2-18.0) L Hematocrit 38.8 % (42.0-52.0) L Mean Corpuscular Volume 98 FL (80-99) Mean Corpuscular Hemoglobin 31.9 PG (27.0-31.0) H Mean Corpuscular Hemoglobin Concent 32.6 G/DL (32.0-36.0) Red Cell Distribution Width 16.6 % (11.6-14.8) H Platelet Count 195 K/UL (150-450) Mean Platelet Volume 9.1 FL (6.5-10.1) Neutrophils (%) (Auto) 51.4 % (45.0-75.0) Lymphocytes (%) (Auto) 26.2 % (20.0-45.0) Monocytes (%) (Auto) 9.3 % (1.0-10.0) Eosinophils (%) (Auto) 11.1 % (0.0-3.0) H Basophils (%) (Auto) 2.0 % (0.0-2.0) Sodium Level 145 MMOL/L (136-145) Potassium Level 4.3 MMOL/L (3.5-5.1) Chloride Level 107 MMOL/L (98-107) Carbon Dioxide Level 32 MMOL/L (21-32) Anion Gap 6 mmol/L (5-15) Blood Urea Nitrogen 11 mg/dL (7-18) Creatinine 1.0 MG/DL (0.55-1.30) Estimat Glomerular Filtration Rate > 60 mL/min (>60) Glucose Level 90 MG/DL (74-106) Calcium Level 9.4 MG/DL (8.5-10.1) Current Medications Medications (Trade) Dose Ordered Sig/Eddy Route PRN Reason Start Time Stop Time Status Last Admin Dose Admin Acetaminophen (Tylenol) 325 mg Q4H PRN GT Mild Pain/Temp > 100.5 05/28/18 21:00 06/25/18 20:54 Albuterol/ Ipratropium (Albuterol/ Ipratropium) 3 ml Q4H PRN HHN Shortness of Breath 05/28/18 21:45 05/31/18 05:44 Bismuth Subsalicylate (Pepto-Bismol) 30 ml Q3H PRN GT Diarrhea 05/28/18 20:59 06/25/18 20:58 Docusate Sodium (Colace) 100 mg DAILY GT 05/29/18 09:00 06/27/18 08:59 05/30/18 08:43 Heparin Sodium (Porcine) (Heparin 5000 units/ml) 5,000 units EVERY 12 HOURS SUBQ 05/28/18 21:00 06/25/18 08:59 05/30/18 08:45 Levetiracetam (Keppra) 500 mg Q12HR GT 05/28/18 21:00 06/25/18 08:59 05/30/18 08:43 Levothyroxine Sodium (Synthroid) 125 mcg DAILY@0630 GT 05/29/18 06:30 06/26/18 06:29 05/30/18 05:09 Midodrine (Pro-Amatine) 2.5 mg THREE TIMES A DAY GT 05/29/18 09:00 06/26/18 17:59 05/30/18 08:43 Olanzapine (ZyPREXA) 5 mg BEDTIME GT 05/29/18 21:00 06/27/18 20:59 05/29/18 20:54 Piperacillin Sod/ Tazobactam Sod 3.375 gm/Dextrose 110 ml @ 27.5 mls/hr EVERY 8 HOURS IVPB 05/28/18 22:00 06/02/18 21:59 05/30/18 05:09 Sodium Chloride 1,000 ml @ 50 mls/hr Q20H IV 05/30/18 11:30 06/29/18 11:29 Shonna Prieto M.D. May 30, 2018 14:08
[2018-05-30 16:00] VITALS: BP 118/69
--- NOTE | 2018-05-30 19:01 | Internal Med Progress Note ---
Subjective Date of Service: May 30, 2018 Physician Name Berg[facility] Attending Physician Jasen Steward MD Current Medications Medications (Trade) Dose Ordered Sig/Eddy Route PRN Reason Start Time Stop Time Status Last Admin Dose Admin Acetaminophen (Tylenol) 325 mg Q4H PRN GT Mild Pain/Temp > 100.5 05/28/18 21:00 06/25/18 20:54 Albuterol/ Ipratropium (Albuterol/ Ipratropium) 3 ml Q4H PRN HHN Shortness of Breath 05/28/18 21:45 05/31/18 05:44 Bismuth Subsalicylate (Pepto-Bismol) 30 ml Q3H PRN GT Diarrhea 05/28/18 20:59 06/25/18 20:58 Docusate Sodium (Colace) 100 mg DAILY GT 05/29/18 09:00 06/27/18 08:59 05/30/18 08:43 Heparin Sodium (Porcine) (Heparin 5000 units/ml) 5,000 units EVERY 12 HOURS SUBQ 05/28/18 21:00 06/25/18 08:59 05/30/18 08:45 Levetiracetam (Keppra) 500 mg Q12HR GT 05/28/18 21:00 06/25/18 08:59 05/30/18 08:43 Levothyroxine Sodium (Synthroid) 125 mcg DAILY@0630 GT 05/29/18 06:30 06/26/18 06:29 05/30/18 05:09 Midodrine (Pro-Amatine) 2.5 mg THREE TIMES A DAY GT 05/29/18 09:00 06/26/18 17:59 05/30/18 18:21 Olanzapine (ZyPREXA) 5 mg BEDTIME GT 05/29/18 21:00 06/27/18 20:59 05/29/18 20:54 Piperacillin Sod/ Tazobactam Sod 3.375 gm/Dextrose 110 ml @ 27.5 mls/hr EVERY 8 HOURS IVPB 05/28/18 22:00 06/02/18 21:59 05/30/18 14:08 Sodium Chloride 1,000 ml @ 50 mls/hr Q20H IV 05/30/18 11:30 06/29/18 11:29 05/30/18 14:08 Allergies: Coded Allergies: SULFA (SULFONAMIDE ANTIBIOTICS) (Verified Allergy, Unknown, 09/02/15) ROS Limited/Unobtainable: Yes Subjective 67 YO M admitted with hypotension. Now pneumonia. Cover for Int Med-Dr Steward Objective Last Vital Signs Date Time Temp Pulse Resp B/P (MAP) Pulse Ox O2 Delivery O2 Flow Rate FiO2 05/30/18 16:00 97.9 66 18 118/69 (85) 98 05/30/18 09:00 Nasal Cannula 2.0 05/29/18 08:14 28 Laboratory Tests Test 05/30/18 06:30 White Blood Count 5.8 K/UL (4.8-10.8) Red Blood Count 3.96 M/UL (4.70-6.10) L Hemoglobin 12.6 G/DL (14.2-18.0) L Hematocrit 38.8 % (42.0-52.0) L Mean Corpuscular Volume 98 FL (80-99) Mean Corpuscular Hemoglobin 31.9 PG (27.0-31.0) H Mean Corpuscular Hemoglobin Concent 32.6 G/DL (32.0-36.0) Red Cell Distribution Width 16.6 % (11.6-14.8) H Platelet Count 195 K/UL (150-450) Mean Platelet Volume 9.1 FL (6.5-10.1) Neutrophils (%) (Auto) 51.4 % (45.0-75.0) Lymphocytes (%) (Auto) 26.2 % (20.0-45.0) Monocytes (%) (Auto) 9.3 % (1.0-10.0) Eosinophils (%) (Auto) 11.1 % (0.0-3.0) H Basophils (%) (Auto) 2.0 % (0.0-2.0) Sodium Level 145 MMOL/L (136-145) Potassium Level 4.3 MMOL/L (3.5-5.1) Chloride Level 107 MMOL/L (98-107) Carbon Dioxide Level 32 MMOL/L (21-32) Anion Gap 6 mmol/L (5-15) Blood Urea Nitrogen 11 mg/dL (7-18) Creatinine 1.0 MG/DL (0.55-1.30) Estimat Glomerular Filtration Rate > 60 mL/min (>60) Glucose Level 90 MG/DL (74-106) Calcium Level 9.4 MG/DL (8.5-10.1) Microbiology Date/Time Source Procedure Growth Status 05/27/18 20:00 Sputum Induced Gram Stain - Final Resulted 05/27/18 20:00 Sputum Culture - Preliminary Gram Negative Bacillus 1 Gram Negative Bacillus 2 Resulted Intake and Output 05/29/18 05/30/18 19:00 07:00 Intake Total 677.5 ml 1012.5 ml Balance 677.5 ml 1012.5 ml Intake Free Water 100 ml 120 ml IV Total 82.5 ml 442.5 ml Tube Feeding 495 ml 450 ml # Voids 4 3 # Bowel Movements 2 Objective PHYSICAL EXAMINATION: GENERAL: The patient is a well-developed, well-nourished, nonverbal white male, in no apparent distress. HEENT: Eyes, pupils equal and responsive to light and accommodation. Extraocular movements are intact. NECK: Supple without lymphadenopathy. CHEST: Decreased breath sounds at bilateral bases with crackles bilaterally, otherwise without wheezes or rales. CARDIOVASCULAR: Regular rhythm and rate. S1, S2 normal without murmurs, rubs, or gallops. ABDOMEN: Soft, nontender, nondistended. Positive bowel sounds. No evidence of hepatosplenomegaly. Currently, no rebound or guarding noted. EXTREMITIES: Negative for clubbing, cyanosis, or edema. RECTAL: Not performed. GENITAL: Not performed. NEUROLOGICAL: Unable to assess. Assessment/Plan Assessment/Plan ASSESSMENT: This is a 67-year-old white male with: 1. Recent pneumonia. 2. Hypotension. 3. Elevated troponin. 4. Congestive heart failure. 5. Down syndrome. 6. Mental retardation. 7. Cerebrovascular disease. 8. Chronic subdural hematoma. 9. Dysphagia. 10. Right bundle-branch block. 11. Acute on chronic renal failure. 12. Sacral and left heel Decubitus Ulcer stage II-see surgery note. TREATMENT: 1. Pneumonia/hypotension. Infectious Disease consultation has been obtained with Dr. Arteaga. The patient has been started empirically on Zosyn. We will follow recommendations of Infectious Disease and Pulmonary. Hypotension may be secondary to sepsis. 2. Elevated troponin/congestive heart failure. Cardiology consultation has been obtained with Dr. Vargas. 3. Down syndrome. 4. Renal failure. The patient is currently receiving intravenous fluids. 5. Cerebrovascular disease/chronic subdural hematoma. 6. Dysphagia. The patient is currently on G-tube feedings. 7. Right bundle-branch block. 8. Discharge planning Amor Berg MD May 30, 2018 19:01
--- NOTE | 2018-05-30 19:38 | NUR ---
HAND-OFF: Report given to Bernard Young RN.
--- NOTE | 2018-05-30 19:55 | NUR ---
NURSE NOTES: Received patient comfortably resting in bed,non-verbal,tolerating his g-tube feeding well.
[2018-05-30 20:00] VITALS: BP 106/54
[2018-05-31] VITALS: BP 106/64
[2018-05-31 04:07] VITALS: BP 107/52
[2018-05-31] MEDS: Levothyroxine 125mcg tab GT SCH (05:04)
[2018-05-31] MEDS: Piperacillin/Tazobactam 3.375 GM in D5W 110 ML IVPB SCH ×2 (05:04→13:31)
--- NOTE | 2018-05-31 07:24 | NUR ---
HAND-OFF: Report given to Rick Schmid RN.
--- NOTE | 2018-05-31 07:30 | NUR ---
NURSE NOTES: Received pt from [facility]. Pt is confused and oriented x1. Pt has NC 2LMP. No SOB or acute respiratory distress noted. pt has iv access LFA 20G is running well. pt has HUERTA cath in place is running well. all needs attended, bed is locked and is in the lowest position. call light within easy reach. will continue to monitor.
[2018-05-31 08:00] VITALS: BP 109/54
[2018-05-31 08:21] LABS: BASOPHILS % (AUTO) 2.1 % (0.0-2.0); EOSINOPHILS % (AUTO) 9.3 % (0.0-3.0); HEMATOCRIT 43.3 % (42.0-52.0); HEMOGLOBIN 13.8 G/DL (14.2-18.0); LYMPHOCYTES % (AUTO) 27.6 % (20.0-45.0); MEAN CORPUSCULAR VOLUME 100 FL (80-99); MONOCYTES % (AUTO) 5.8 % (1.0-10.0); NEUTROPHILS % (AUTO) 55.2 % (45.0-75.0); PLATELET COUNT 204 K/UL (150-450); RED BLOOD COUNT 4.34 M/UL (4.70-6.10); RED CELL DISTRIBUTION WIDTH 16.7 % (11.6-14.8); WHITE BLOOD COUNT 5.2 K/UL (4.8-10.8)
[2018-05-31 08:41] LABS: ANION GAP 7 mmol/L (5-15); BLOOD UREA NITROGEN 8 mg/dL (7-18); CALCIUM 9.8 MG/DL (8.5-10.1); CARBON DIOXIDE 31 MMOL/L (21-32); CHLORIDE 104 MMOL/L (98-107); POTASSIUM 3.9 MMOL/L (3.5-5.1); SODIUM 142 MMOL/L (136-145)
[2018-05-31] MEDS: levETIRAcetam 500mg/5ml Liquid GT SCH (08:53)
[2018-05-31] MEDS: Docusate 100mg/10ml Liq GT SCH (08:53)
[2018-05-31] MEDS: Heparin 5000 units/ml inj SUBQ SCH (08:54)
--- NOTE | 2018-05-31 11:42 | NUR ---
*-* DISCHARGE PLANNING *-* PATIENT HAS BEEN REFERRED TO: [facility] P:[phone] F:[phone]
--- NOTE | 2018-05-31 11:53 | General Progress Note ---
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 Assessment/Plan zyprexa 5mg qdaily provided ro Subjective 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: Reports: anxiety, depressed Allergies: Coded Allergies: SULFA (SULFONAMIDE ANTIBIOTICS) (Verified Allergy, Unknown, 09/02/15) Subjective the pt is the same episodes of agitation Objective Last 24 Hour Vital Signs Date Time Temp Pulse Resp B/P (MAP) Pulse Ox O2 Delivery O2 Flow Rate FiO2 05/31/18 08:00 97.4 61 17 109/54 (72) 92 05/31/18 04:07 97.3 58 19 107/52 (70) 93 05/31/18 00:00 98.8 55 20 106/64 (78) 97 05/30/18 20:53 Nasal Cannula 2.0 28 05/30/18 20:53 99 Nasal Cannula 2.0 28 05/30/18 20:51 53 20 Nasal Cannula 2.0 28 05/30/18 20:10 Nasal Cannula 2.0 05/30/18 20:00 97.7 51 20 106/54 (71) 98 05/30/18 16:00 97.9 66 18 118/69 (85) 98 05/30/18 12:00 97.6 60 18 110/60 (77) 97 Intake and Output 05/30/18 05/31/18 19:00 07:00 Intake Total 700 ml 912.5 ml Output Total 800 ml 700 ml Balance -100 ml 212.5 ml Intake Free Water 120 ml IV Total 160 ml 387.5 ml Tube Feeding 540 ml 405 ml Output Urine Total 800 ml 700 ml # Bowel Movements 1 Laboratory Tests 05/31/18 07:35: White Blood Count 5.2, Red Blood Count 4.34L, Hemoglobin 13.8L, Hematocrit 43.3 , Mean Corpuscular Volume 100H, Mean Corpuscular Hemoglobin 31.7H, Mean Corpuscular Hemoglobin Concent 31.8L, Red Cell Distribution Width 16.7H, Platelet Count 204, Mean Platelet Volume 9.2, Neutrophils (%) (Auto) 55.2, Lymphocytes (%) (Auto) 27.6, Monocytes (%) (Auto) 5.8, Eosinophils (%) (Auto) 9.3H, Basophils (%) (Auto) 2.1H, Sodium Level 142, Potassium Level 3.9, Chloride Level 104, Carbon Dioxide Level 31, Anion Gap 7, Blood Urea Nitrogen 8 , Creatinine 1.0, Estimat Glomerular Filtration Rate > 60, Glucose Level 98, Calcium Level 9.8 Height (Feet): 5 Height (Inches): 8.00 Weight (Pounds): 108 General Appearance: alert, confused, moderate distress, agitated Satish Rubio MD May 31, 2018 11:53
[2018-05-31 12:00] VITALS: BP 117/54
--- NOTE | 2018-05-31 12:04 | NUR ---
RD ASSESSMENT & RECOMMENDATIONS SEE CARE ACTIVITY FOR COMPLETE ASSESSMENT DAILY ESTIMATED NEEDS: Needs based on Pulmonary, wound, wt loss 48.6kg 30-35 kcals/kg 6255-0633 total kcals 1.25-1.5 g protein/kg 61-73 g total protein 25-30 mL/kg 3121-3624 total fluid mLs NUTRITION DIAGNOSIS: Difficulty swallowing r/t dyshagia as evidenced by pt is PEG dep for all nutritional needs. CURRENT TF: Glucerna 1.2 @45ml/hr x 22 hrs (On Synthroid QD) ENTERAL NUTRITION RECOMMENDATIONS: Glucerna 1.2 @ 55ml/hr x 22 hrs to provide 1210ml, 1452kcal, 73g prot, 974ml free water - Rec to increase goal rate to 55ml/hr - HOLD 1 Hr before and after synthroid meds- TF to run max 22 hrs - Flush per MD/ HOB over 30 degrees ADDITIONAL RECOMMENDATIONS: 1) Calibrated bed scale wts weekly 2) Monitor lytes closely, replete as needed 3) Wound healing: Add Camron 1pkt BID via PEG 4) Rec A1C for eval .
--- NOTE | 2018-05-31 12:23 | Infectious Diseases Prog Note ---
Assessment/Plan Assessment/Plan Abx: Zosyn 05/25 Assessment: Transient hypotenson (?sepsis) Probable PNA vs CHF -CXR: There is worsening of aeration with increasing left basilar opacities. Likely trace left pleural effusion. Opacities in the medial right base. No pneumothorax. -sp cx E.coli (R amp, cipro/levo; S Zosyn), PsA (sensi pendign) Afebrile No leukocytosis MISHEL, improving Troponinemia Dementia dysphagia s/p PEG seizure disorder non verbal hypothyroidism HTN Down Syndrome chronic subdural hematoma CVA [facility] SNF resident Plan: -Continue empiric Zosyn #7/7 for PNA -f/u cx -Monitor CBC/CMP, temperatures -aspiration precautions Thank you for this consultation. Will continue to follow along with you. Discussed with RN. Subjective Allergies: Coded Allergies: SULFA (SULFONAMIDE ANTIBIOTICS) (Verified Allergy, Unknown, 09/02/15) Subjective afebrile no leukocytosis at 2l NC Objective Vital Signs Last 24 Hour Vital Signs Date Time Temp Pulse Resp B/P (MAP) Pulse Ox O2 Delivery O2 Flow Rate FiO2 05/31/18 08:00 97.4 61 17 109/54 (72) 92 05/31/18 04:07 97.3 58 19 107/52 (70) 93 05/31/18 00:00 98.8 55 20 106/64 (78) 97 05/30/18 20:53 Nasal Cannula 2.0 28 05/30/18 20:53 99 Nasal Cannula 2.0 28 05/30/18 20:51 53 20 Nasal Cannula 2.0 28 05/30/18 20:10 Nasal Cannula 2.0 05/30/18 20:00 97.7 51 20 106/54 (71) 98 05/30/18 16:00 97.9 66 18 118/69 (85) 98 Height (Feet): 5 Height (Inches): 8.00 Weight (Pounds): 108 Objective HEAD AND NECK: Shows no JVD. LUNGS: Coarse rhonchi. CARDIOVASCULAR: Shows regular S1 and S2 with no gallop. ABDOMEN: Soft. Status post G-tube. EXTREMITIES: 1+ pitting edema. Laboratory Tests Test 05/31/18 07:35 White Blood Count 5.2 K/UL (4.8-10.8) Red Blood Count 4.34 M/UL (4.70-6.10) L Hemoglobin 13.8 G/DL (14.2-18.0) L Hematocrit 43.3 % (42.0-52.0) Mean Corpuscular Volume 100 FL (80-99) H Mean Corpuscular Hemoglobin 31.7 PG (27.0-31.0) H Mean Corpuscular Hemoglobin Concent 31.8 G/DL (32.0-36.0) L Red Cell Distribution Width 16.7 % (11.6-14.8) H Platelet Count 204 K/UL (150-450) Mean Platelet Volume 9.2 FL (6.5-10.1) Neutrophils (%) (Auto) 55.2 % (45.0-75.0) Lymphocytes (%) (Auto) 27.6 % (20.0-45.0) Monocytes (%) (Auto) 5.8 % (1.0-10.0) Eosinophils (%) (Auto) 9.3 % (0.0-3.0) H Basophils (%) (Auto) 2.1 % (0.0-2.0) H Sodium Level 142 MMOL/L (136-145) Potassium Level 3.9 MMOL/L (3.5-5.1) Chloride Level 104 MMOL/L (98-107) Carbon Dioxide Level 31 MMOL/L (21-32) Anion Gap 7 mmol/L (5-15) Blood Urea Nitrogen 8 mg/dL (7-18) Creatinine 1.0 MG/DL (0.55-1.30) Estimat Glomerular Filtration Rate > 60 mL/min (>60) Glucose Level 98 MG/DL (74-106) Calcium Level 9.8 MG/DL (8.5-10.1) Current Medications Medications (Trade) Dose Ordered Sig/Eddy Route PRN Reason Start Time Stop Time Status Last Admin Dose Admin Acetaminophen (Tylenol) 325 mg Q4H PRN GT Mild Pain/Temp > 100.5 05/28/18 21:00 06/25/18 20:54 Bismuth Subsalicylate (Pepto-Bismol) 30 ml Q3H PRN GT Diarrhea 05/28/18 20:59 06/25/18 20:58 Docusate Sodium (Colace) 100 mg DAILY GT 05/29/18 09:00 06/27/18 08:59 05/31/18 08:53 Heparin Sodium (Porcine) (Heparin 5000 units/ml) 5,000 units EVERY 12 HOURS SUBQ 05/28/18 21:00 06/25/18 08:59 05/31/18 08:54 Levetiracetam (Keppra) 500 mg Q12HR GT 05/28/18 21:00 06/25/18 08:59 05/31/18 08:53 Levothyroxine Sodium (Synthroid) 125 mcg DAILY@0630 GT 05/29/18 06:30 06/26/18 06:29 05/31/18 05:04 Midodrine (Pro-Amatine) 2.5 mg THREE TIMES A DAY GT 05/29/18 09:00 06/26/18 17:59 05/31/18 12:11 Olanzapine (ZyPREXA) 5 mg BEDTIME GT 05/29/18 21:00 06/27/18 20:59 05/30/18 21:47 Piperacillin Sod/ Tazobactam Sod 3.375 gm/Dextrose 110 ml @ 27.5 mls/hr EVERY 8 HOURS IVPB 05/28/18 22:00 06/02/18 21:59 05/31/18 05:04 Sodium Chloride 1,000 ml @ 50 mls/hr Q20H IV 05/30/18 11:30 06/29/18 11:29 05/31/18 08:53 Shonna Prieto M.D. May 31, 2018 12:23
--- NOTE | 2018-05-31 14:53 | NUR ---
*-* DISCHARGE PLANNING*-* PATIENT HAS BEEN DISCHARGE TO: [facility] ROOM# 29-B SKILLED T:[phone] FOR NURSE TO NURSE REPORT [facility] HAS BEEN ARRANGED FOR TEST TECHNICIAN 1630 S/W APPLE [id number]
--- NOTE | 2018-05-31 15:06 | NUR ---
NURSE NOTES: Pt has order to discharge. all discharge assessments and instructions done. pt's brother Mr still is aware about discharging. called SNF and given report to [facility]. Dr Prieto is aware about discharging. pt has no belongings. took picture from all wounds. waiting for ambulance to pick pt up. will continue to monitor.
--- NOTE | 2018-05-31 15:15 | Cardiac Electrophysiology PN ---
Assessment/Plan Assessment/Plan 1. Troponin leak, mildly elevated. The patient is nonverbal. EKG is nonischemic. The patient is not a candidate for any invasive cardiac procedure. Continue aspirin. Echo EF 65% 2. Hypotension. Blood pressure is better, however, likely due to sepsis. The patient is on IV antibiotic. Off Metoprolol on midodrine. 3. Hypothyroidism. On Synthroid. 4. Mental retardation. 5. History of CVA. 6. Hypernatremia on 05/09 NS RN Subjective Subjective Placement pending. Non verbal. No event Objective Last 24 Hour Vital Signs Date Time Temp Pulse Resp B/P (MAP) Pulse Ox O2 Delivery O2 Flow Rate FiO2 05/31/18 12:00 97.9 74 19 117/54 (75) 97 05/31/18 09:00 Nasal Cannula 2.0 05/31/18 08:00 97.4 61 17 109/54 (72) 92 05/31/18 04:07 97.3 58 19 107/52 (70) 93 05/31/18 00:00 98.8 55 20 106/64 (78) 97 05/30/18 20:53 Nasal Cannula 2.0 28 05/30/18 20:53 99 Nasal Cannula 2.0 28 05/30/18 20:51 53 20 Nasal Cannula 2.0 28 05/30/18 20:10 Nasal Cannula 2.0 05/30/18 20:00 97.7 51 20 106/54 (71) 98 05/30/18 16:00 97.9 66 18 118/69 (85) 98 Intake and Output 05/30/18 05/31/18 19:00 07:00 Intake Total 700 ml 912.5 ml Output Total 800 ml 700 ml Balance -100 ml 212.5 ml Intake Free Water 120 ml IV Total 160 ml 387.5 ml Tube Feeding 540 ml 405 ml Output Urine Total 800 ml 700 ml # Bowel Movements 1 Laboratory Tests Test 05/31/18 07:35 White Blood Count 5.2 K/UL (4.8-10.8) Red Blood Count 4.34 M/UL (4.70-6.10) L Hemoglobin 13.8 G/DL (14.2-18.0) L Hematocrit 43.3 % (42.0-52.0) Mean Corpuscular Volume 100 FL (80-99) H Mean Corpuscular Hemoglobin 31.7 PG (27.0-31.0) H Mean Corpuscular Hemoglobin Concent 31.8 G/DL (32.0-36.0) L Red Cell Distribution Width 16.7 % (11.6-14.8) H Platelet Count 204 K/UL (150-450) Mean Platelet Volume 9.2 FL (6.5-10.1) Neutrophils (%) (Auto) 55.2 % (45.0-75.0) Lymphocytes (%) (Auto) 27.6 % (20.0-45.0) Monocytes (%) (Auto) 5.8 % (1.0-10.0) Eosinophils (%) (Auto) 9.3 % (0.0-3.0) H Basophils (%) (Auto) 2.1 % (0.0-2.0) H Sodium Level 142 MMOL/L (136-145) Potassium Level 3.9 MMOL/L (3.5-5.1) Chloride Level 104 MMOL/L (98-107) Carbon Dioxide Level 31 MMOL/L (21-32) Anion Gap 7 mmol/L (5-15) Blood Urea Nitrogen 8 mg/dL (7-18) Creatinine 1.0 MG/DL (0.55-1.30) Estimat Glomerular Filtration Rate > 60 mL/min (>60) Glucose Level 98 MG/DL (74-106) Calcium Level 9.8 MG/DL (8.5-10.1) Objective HEAD AND NECK: No JVD. LUNGS: Coarse rhonchi. CARDIOVASCULAR: Regular S1 and S2 with no gallop. ABDOMEN: Soft. Status post G-tube. EXTREMITIES: 1+ pitting edema. Harlan Vargas MD May 31, 2018 15:15
[2018-05-31 16:00] VITALS: BP 101/56
--- NOTE | 2018-05-31 16:10 | Surgery Progress Note ---
Surgery Progress Note Subjective Additional Comments no acute events. stable. Objective Last 24 Hour Vital Signs Date Time Temp Pulse Resp B/P (MAP) Pulse Ox O2 Delivery O2 Flow Rate FiO2 05/31/18 12:00 97.9 74 19 117/54 (75) 97 05/31/18 09:00 Nasal Cannula 2.0 05/31/18 08:00 97.4 61 17 109/54 (72) 92 05/31/18 04:07 97.3 58 19 107/52 (70) 93 05/31/18 00:00 98.8 55 20 106/64 (78) 97 05/30/18 20:53 Nasal Cannula 2.0 28 05/30/18 20:53 99 Nasal Cannula 2.0 28 05/30/18 20:51 53 20 Nasal Cannula 2.0 28 05/30/18 20:10 Nasal Cannula 2.0 05/30/18 20:00 97.7 51 20 106/54 (71) 98 I&O Intake and Output 05/30/18 05/31/18 19:00 07:00 Intake Total 700 ml 912.5 ml Output Total 800 ml 700 ml Balance -100 ml 212.5 ml Intake Free Water 120 ml IV Total 160 ml 387.5 ml Tube Feeding 540 ml 405 ml Output Urine Total 800 ml 700 ml # Bowel Movements 1 Dressing: saturated Wound: clean Drains: other Cardiovascular: RSR Respiratory: decreased breath sounds Abdomen: soft, present bowel sounds, non-distended Extremities: no cyanosis Laboratory Tests Test 05/31/18 07:35 White Blood Count 5.2 K/UL (4.8-10.8) Red Blood Count 4.34 M/UL (4.70-6.10) L Hemoglobin 13.8 G/DL (14.2-18.0) L Hematocrit 43.3 % (42.0-52.0) Mean Corpuscular Volume 100 FL (80-99) H Mean Corpuscular Hemoglobin 31.7 PG (27.0-31.0) H Mean Corpuscular Hemoglobin Concent 31.8 G/DL (32.0-36.0) L Red Cell Distribution Width 16.7 % (11.6-14.8) H Platelet Count 204 K/UL (150-450) Mean Platelet Volume 9.2 FL (6.5-10.1) Neutrophils (%) (Auto) 55.2 % (45.0-75.0) Lymphocytes (%) (Auto) 27.6 % (20.0-45.0) Monocytes (%) (Auto) 5.8 % (1.0-10.0) Eosinophils (%) (Auto) 9.3 % (0.0-3.0) H Basophils (%) (Auto) 2.1 % (0.0-2.0) H Sodium Level 142 MMOL/L (136-145) Potassium Level 3.9 MMOL/L (3.5-5.1) Chloride Level 104 MMOL/L (98-107) Carbon Dioxide Level 31 MMOL/L (21-32) Anion Gap 7 mmol/L (5-15) Blood Urea Nitrogen 8 mg/dL (7-18) Creatinine 1.0 MG/DL (0.55-1.30) Estimat Glomerular Filtration Rate > 60 mL/min (>60) Glucose Level 98 MG/DL (74-106) Calcium Level 9.8 MG/DL (8.5-10.1) Plan Problems: (1) Decubital ulcer Assessment & Plan: Patient presents with multiple wounds upon admission Partial thickness stage 2 sacral decubitus wound with periwound erythema. multiple small blotchy areas. area of resolving wound noted cephalad. Left heel blood blister 1cmx 1cm. periwound clean Incontinence associated dermatitis perineal area and buttocks, erythema noted. Intact serous blister noted to posterior L tibia,surrounding skin is pink and intact. Stable brown eschar noted to L heel(L)0.7cm x (W)0.9cm.Periwound without erythema or fluctuance.R heel boggy but blanchable.Diffused red rash noted to bilat lower ext. No other areas of skin concerns noted. Tx.Plan: Maintain Tegaderm to Blister L Tibia until drsg loosens, or blister breaks. Apply Triad to Buttocks and groin areas with each perineal care. Apply Cavilon Skin barrier to both heels .Off-load heels with pillow. Reposition at least every 2hours or as tolerated. Support surface mattress. Joselito Dorman May 31, 2018 16:10
--- NOTE | 2018-05-31 16:39 | NUR ---
NURSE NOTES: Took pictures from all wounds but RN forgot to write V number. RN confirmed that all pictures that took from wounds today from me and inserted in computer have V number [id number]. will continue to monitor.
--- NOTE | 2018-05-31 17:01 | Internal Med Progress Note ---
Subjective Date of Service: May 31, 2018 Physician Name Amor Berg Attending Physician Jasen Steward MD Current Medications Medications (Trade) Dose Ordered Sig/Eddy Route PRN Reason Start Time Stop Time Status Last Admin Dose Admin Acetaminophen (Tylenol) 325 mg Q4H PRN GT Mild Pain/Temp > 100.5 05/28/18 21:00 06/25/18 20:54 Bismuth Subsalicylate (Pepto-Bismol) 30 ml Q3H PRN GT Diarrhea 05/28/18 20:59 06/25/18 20:58 Docusate Sodium (Colace) 100 mg DAILY GT 05/29/18 09:00 06/27/18 08:59 05/31/18 08:53 Heparin Sodium (Porcine) (Heparin 5000 units/ml) 5,000 units EVERY 12 HOURS SUBQ 05/28/18 21:00 06/25/18 08:59 05/31/18 08:54 Levetiracetam (Keppra) 500 mg Q12HR GT 05/28/18 21:00 06/25/18 08:59 05/31/18 08:53 Levothyroxine Sodium (Synthroid) 125 mcg DAILY@0630 GT 05/29/18 06:30 06/26/18 06:29 05/31/18 05:04 Midodrine (Pro-Amatine) 2.5 mg THREE TIMES A DAY GT 05/29/18 09:00 06/26/18 17:59 05/31/18 12:11 Olanzapine (ZyPREXA) 5 mg BEDTIME GT 05/29/18 21:00 06/27/18 20:59 05/30/18 21:47 Piperacillin Sod/ Tazobactam Sod 3.375 gm/Dextrose 110 ml @ 27.5 mls/hr EVERY 8 HOURS IVPB 05/28/18 22:00 05/31/18 23:59 05/31/18 13:31 Sodium Chloride 1,000 ml @ 50 mls/hr Q20H IV 05/30/18 11:30 06/29/18 11:29 05/31/18 08:53 Allergies: Coded Allergies: SULFA (SULFONAMIDE ANTIBIOTICS) (Verified Allergy, Unknown, 09/02/15) ROS Limited/Unobtainable: Yes Subjective 67 YO M admitted with hypotension. Now pneumonia. Cover for Int Med-Dr Steward. Await transfer to [facility] Objective Last Vital Signs Date Time Temp Pulse Resp B/P (MAP) Pulse Ox O2 Delivery O2 Flow Rate FiO2 05/31/18 16:00 97.9 60 19 101/56 (71) 97 05/31/18 09:00 Nasal Cannula 2.0 05/30/18 20:53 28 Laboratory Tests Test 05/31/18 07:35 White Blood Count 5.2 K/UL (4.8-10.8) Red Blood Count 4.34 M/UL (4.70-6.10) L Hemoglobin 13.8 G/DL (14.2-18.0) L Hematocrit 43.3 % (42.0-52.0) Mean Corpuscular Volume 100 FL (80-99) H Mean Corpuscular Hemoglobin 31.7 PG (27.0-31.0) H Mean Corpuscular Hemoglobin Concent 31.8 G/DL (32.0-36.0) L Red Cell Distribution Width 16.7 % (11.6-14.8) H Platelet Count 204 K/UL (150-450) Mean Platelet Volume 9.2 FL (6.5-10.1) Neutrophils (%) (Auto) 55.2 % (45.0-75.0) Lymphocytes (%) (Auto) 27.6 % (20.0-45.0) Monocytes (%) (Auto) 5.8 % (1.0-10.0) Eosinophils (%) (Auto) 9.3 % (0.0-3.0) H Basophils (%) (Auto) 2.1 % (0.0-2.0) H Sodium Level 142 MMOL/L (136-145) Potassium Level 3.9 MMOL/L (3.5-5.1) Chloride Level 104 MMOL/L (98-107) Carbon Dioxide Level 31 MMOL/L (21-32) Anion Gap 7 mmol/L (5-15) Blood Urea Nitrogen 8 mg/dL (7-18) Creatinine 1.0 MG/DL (0.55-1.30) Estimat Glomerular Filtration Rate > 60 mL/min (>60) Glucose Level 98 MG/DL (74-106) Calcium Level 9.8 MG/DL (8.5-10.1) Intake and Output 1/23/19 1/24/19 19:00 07:00 Intake Total 700 ml 912.5 ml Output Total 800 ml 700 ml Balance -100 ml 212.5 ml Intake Free Water 120 ml IV Total 160 ml 387.5 ml Tube Feeding 540 ml 405 ml Output Urine Total 800 ml 700 ml # Bowel Movements 1 Objective PHYSICAL EXAMINATION: GENERAL: The patient is a well-developed, well-nourished, nonverbal white male, in no apparent distress. HEENT: Eyes, pupils equal and responsive to light and accommodation. Extraocular movements are intact. NECK: Supple without lymphadenopathy. CHEST: Decreased breath sounds at bilateral bases with crackles bilaterally, otherwise without wheezes or rales. CARDIOVASCULAR: Regular rhythm and rate. S1, S2 normal without murmurs, rubs, or gallops. ABDOMEN: Soft, nontender, nondistended. Positive bowel sounds. No evidence of hepatosplenomegaly. Currently, no rebound or guarding noted. EXTREMITIES: Negative for clubbing, cyanosis, or edema. RECTAL: Not performed. GENITAL: Not performed. NEUROLOGICAL: Unable to assess. Assessment/Plan Assessment/Plan ASSESSMENT: This is a 67-year-old white male with: 1. Recent pneumonia. 2. Hypotension. 3. Elevated troponin. 4. Congestive heart failure. 5. Down syndrome. 6. Mental retardation. 7. Cerebrovascular disease. 8. Chronic subdural hematoma. 9. Dysphagia. 10. Right bundle-branch block. 11. Acute on chronic renal failure. 12. Sacral and left heel Decubitus Ulcer stage II-see surgery note. TREATMENT: 1. Pneumonia/hypotension. Infectious Disease consultation has been obtained with Dr. Arteaga. The patient has been started empirically on Zosyn. We will follow recommendations of Infectious Disease and Pulmonary. Hypotension may be secondary to sepsis. 2. Elevated troponin/congestive heart failure. Cardiology consultation has been obtained with Dr. Vargas. 3. Down syndrome. 4. Renal failure. The patient is currently receiving intravenous fluids. 5. Cerebrovascular disease/chronic subdural hematoma. 6. Dysphagia. The patient is currently on G-tube feedings. 7. Right bundle-branch block. 8. Discharge to [facility] Amor Horner MD May 31, 2018 17:01
--- NOTE | 2018-05-31 17:56 | NUR ---
NURSE NOTES: pt is stable, V/S stable. iv access D/C. condom Grayson D/C. pt left hospital with accompany of ambulance personnel.
--- NOTE | 2018-06-01 14:22 | Discharge Summary ---
Discharge Summary Discharge Summary _ DATE OF ADMISSION: 05/25/2018 DATE OF DISCHARGE: 05/31/2018 ADMITTED BY: Dr. Jasen Steward DISCHARGED BY: Dr. Chapin Schreiber CONSULTANTS: Dr. Chapin Rubio [facility] HOSPITAL COURSE: Patient is a 67-year-old white male, who presented with chief complaint of hypotension. Patient apparently had been admitted to [facility] acute care [facility]. He was admitted for pneumonia. He was discharged the day prior to a care home facility. According to the staff at the care home facility, the patient had low blood pressure. He was then transferred to [facility]. He has medical history significant for Down syndrome, congestive heart failure, mental retardation, chronic subdural hematoma, cerebrovascular disease status post cerebrovascular accident, dysphagia status post PEG placement, and history of right bundle branch block. On evaluation at the ED, BP in triage was 86/43. He was initially hypotensive and improved with small IV bolus. Blood work did not show any leukocytosis, hemoglobin and hematocrit were stable. Electrolytes were normal. Lactic acid 1. Troponin was negative. Urinalysis was negative. EKG showed some sinus bradycardia. Chest x-ray showed right lower lung infiltrate. He was then admitted for evaluation of pneumonia, CHF and hypotension. He was given IV hydration. He was given nebulizer treatment. He was placed on heparin for DVT prophylaxis. He was continued on levothyroxine. He was placed on seizure precautions, continued on Keppra. He came in with multiple wounds on admission. Surgical evaluation was done. Patient has partial-thickness stage II sacral decubiti wound with periwound erythema and small blotchy areas. There was a left heel blood blister. He was given wound care. He was placed on air mattress with frequent repositioning and offloading. Scenery Builder was consulted. Troponin was elevated to 0.075. Initial troponin was 0.04. EKG was nonischemic. Patient is not a candidate for any invasive cardiac procedure. He was continued on aspirin. Metoprolol was discontinued due to hypotension. He was given midodrine. Echocardiogram done showed EF 65% . Venous duplex was negative for DVT. He has cognitive impairment and has waxing and waning of consciousness with episodes of agitation. Psychiatric evaluation was done. Patient was given Zyprexa. Sputum culture showed E. coli and Pseudomonas. He was given IV Zosyn. He completed 7 days of antibiotics. Blood pressure improved. [facility] FINAL DIAGNOSES: Pneumonia Transient hypotension, possible sepsis Elevated troponin due to troponin leak Congestive heart failure Down syndrome Mental retardation Hypernatremia Chronic subdural hematoma Dysphagia on G-tube Right bundle branch block Acute on chronic renal failure Sacral decubitus ulcer stage II, present on admission and left heel blister, present on admission Seizure disorder Hypothyroidism Encephalopathy due to toxin Congenital heart disease seen in consult DISPOSITION: Patient was discharged to a SNF. DISCHARGE MEDICATIONS: Refer to Discharge Medication List. I have been assigned to complete a discharge summary on this account, I was not involved with the patient's management. Natalia Greenberg NP Jun 01, 2018 14:22
== END 2018-05-31 17:00 | DRG 871 ==
LOC: EDBD 20:36 → EDBEDREQ 21:53 → EMR 22:35 → 2E 22:37 → EDBEDREQ 23:47 → 4E 05-28 21:09
DX: A41.9 Sepsis, unspecified organism (principal); J18.9 Pneumonia, unspecified organism; E43 Unspecified severe protein-calorie malnutrition; I62.03 Nontraumatic chronic subdural hemorrhage; G92 Toxic encephalopathy; Z68.1 Body mass index [BMI] 19.9 or less, adult; N17.9 Acute kidney failure, unspecified; Z43.1 Encounter for attention to gastrostomy; E87.0 Hyperosmolality and hypernatremia; I50.9 Heart failure, unspecified; Q90.9 Down syndrome, unspecified; F79 Unspecified intellectual disabilities; Z86.73 Personal history of transient ischemic attack (TIA), and cerebral infarction without residual deficits; R13.10 Dysphagia, unspecified; I45.10 Unspecified right bundle-branch block; Z79.82 Long term (current) use of aspirin; N18.9 Chronic kidney disease, unspecified; L89.152 Pressure ulcer of sacral region, stage 2; G40.909 Epilepsy, unspecified, not intractable, without status epilepticus; E03.9 Hypothyroidism, unspecified; Q24.9 Congenital malformation of heart, unspecified; I34.0 Nonrheumatic mitral (valve) insufficiency; Z88.2 Allergy status to sulfonamides; L89.622 Pressure ulcer of left heel, stage 2
CPT/HCPCS: 36415; 71045; 76770; 80048; 80053; 80061; 81003; 82550; 82553; 83605; 83735; 83880; 84100; 84443; 84484; 85025; 87040; 87070; 87081; 87181; 87205; 93005; 93306; 93970; 94664; 94760; 96361; 96365; 96368; 97802; 99285

== ENCOUNTER 2020-06-09 00:46 | Inpatient (IN) | payer MEDICARE, MEDICAID ==
[~2020-06-09] VITALS: Ht 162.6 cm; Wt 60.3 kg
[2020-06-09] VITALS (7 sets, daily range): BP systolic 101–152; BP diastolic 64–86
[~2020-06-09 00:46] MED LIST changes: +ATORVASTATIN CA20 MG GT; -ATORVASTATIN CA20 MG ORAL; +OYSTER SHELL C500 MG GT; -OYSTER SHELL C500 MG PO; +Omnipaque-300 100ml vial INJ PRN
--- NOTE | 2020-06-09 00:50 | NUR ---
ED Nurse Note: Pt brought in from [facility] by EMS. Pt reportedly pulled on gastric tube and now area around tube is bleeding. Bandage removed and area cleansed with warm water, pt's gown changed, dry gauze applied to area around tube.
--- NOTE | 2020-06-09 00:56 | Emergency Room Report ---
History of Present Illness General Chief Complaint: Malfunctioning Gastric Tube Source: Medical Record, EMS Present Illness HPI 69-year-old male with history of Down syndrome, chronic encephalopathy, CHF, G- tube dependent here with abdominal bleeding after pulling out his G-tube. Andres cuello had a 30 [place] G-tube in place and according to the nurses at [facility] he pulled out his G-tube causing the area to bleed profusely. The area was bandaged and the G-tube was left in place. This occurred about 1 hour prior to come to the emergency department. Patient is nonverbal at baseline. Unable to participate in review of systems. Allergies: Coded Allergies: SULFA (SULFONAMIDE ANTIBIOTICS) (Verified Allergy, Unknown, 09/02/15) COVID-19 Screening Contact w/high risk pt: No Experienced COVID-19 symptoms?: No COVID-19 Testing performed [employer] ROOM: No Nursing Documentation-PMH Hx Cancer: No Hx Gastrointestinal Problems: Yes - Constipation Hx Neurological Problems: Yes - Subdural Hematoma Hx Seizures: Yes Hx Speech Problem: Yes - Difficulty speaking Hx Aphasia: Yes Hx Weakness: Yes - Bilateral lower extremities Review of Systems All Other Systems: limited - Nonverbal at baseline Physical Exam Vital Signs Date Time Temp Pulse Resp B/P (MAP) Pulse Ox O2 Delivery O2 Flow Rate FiO2 06/09/20 00:37 98.4 85 20 152/80 (104) 98 Room Air Sp02 EP Interpretation: reviewed, normal General Appearance: non-toxic, other - Laying in bed with eyes closed. Moving all extremities spontaneously Head: normocephalic, atraumatic Eyes: bilateral eye normal inspection, bilateral eye PERRL ENT: normal pharynx, no angioedema Neck: full range of motion, supple/symm/no masses Respiratory: chest non-tender, lungs clear, normal breath sounds, speaking full sentences Cardiovascular #1: regular rate, rhythm, no edema Cardiovascular #2: 2+ carotid (R), 2+ carotid (L), 2+ radial (R), 2+ radial (L), 2+ dorsalis pedis (R), 2+ dorsalis pedis (L) Gastrointestinal: normal bowel sounds, non-distended, other - Rigid abdomen. G-tube partially in place with active bleeding from G-tube insertion site Rectal: deferred Genitourinary: normal inspection, no CVA tenderness Musculoskeletal: back normal, normal range of motion, gait/station normal, non- tender Neurologic: sensory intact, other - Nonverbal. Localizes to pain. Moving all extremities Psychiatric: other - Nonverbal. Unable to participate in psychiatric evaluation Lymphatic: no adenopathy Medical Decision Making Diagnostic Impression: Primary Impression: Malfunction of gastrostomy tube ER Course Laboratory Tests Test 06/09/20 01:00 White Blood Count 7.3 K/UL (4.8-10.8) Red Blood Count 4.02 M/UL (4.70-6.10) L Hemoglobin 13.1 G/DL (14.2-18.0) L Hematocrit 41.1 % (42.0-52.0) L Mean Corpuscular Volume 102 FL (80-99) H Mean Corpuscular Hemoglobin 32.5 PG (27.0-31.0) H Mean Corpuscular Hemoglobin Concent 31.8 G/DL (32.0-36.0) L Red Cell Distribution Width 13.3 % (11.6-14.8) Platelet Count 207 K/UL (150-450) Mean Platelet Volume 9.7 FL (6.5-10.1) Neutrophils (%) (Auto) 66.9 % (45.0-75.0) Lymphocytes (%) (Auto) 19.1 % (20.0-45.0) L Monocytes (%) (Auto) 9.3 % (1.0-10.0) Eosinophils (%) (Auto) 3.5 % (0.0-3.0) H Basophils (%) (Auto) 1.1 % (0.0-2.0) Sodium Level 140 MMOL/L (136-145) Potassium Level 4.5 MMOL/L (3.5-5.1) Chloride Level 104 MMOL/L (98-107) Carbon Dioxide Level 32 MMOL/L (21-32) Anion Gap 4 mmol/L (5-15) L Blood Urea Nitrogen 16 mg/dL (7-18) Creatinine 1.0 MG/DL (0.55-1.30) Estimated Glomerular Filtration Rate > 60 mL/min (>60) Glucose Level 108 MG/DL (74-106) H Calcium Level 8.8 MG/DL (8.5-10.1) Total Bilirubin 0.3 MG/DL (0.2-1.0) Aspartate Amino Transferase (AST) 32 U/L (15-37) Alanine Aminotransferase (ALT) 26 U/L (12-78) Alkaline Phosphatase 91 U/L (46-116) Total Protein 7.0 G/DL (6.4-8.2) Albumin 2.7 G/DL (3.4-5.0) L Globulin 4.3 g/dL Albumin/Globulin Ratio 0.6 (1.0-2.7) L Lipase 71 U/L (73-393) L CT abdomen pelvis: No free air in the abdomen. G-tube appears to be in the lumen of the stomach 69-year-old male with history of Down syndrome G-tube dependent here with G-tube malfunction. [facility] Patient was soaked in blood on arrival to the emergency department and there was active bleeding coming from the G-tube insertion site. This was slowed down with pressure alone. Hemoglobin normal. Patient has had normal vital signs through out his stay in the emergency department. Patient mated to [facility] under the care of Dr. Steward Last Vital Signs Date Time Temp Pulse Resp B/P (MAP) Pulse Ox O2 Delivery O2 Flow Rate FiO2 06/09/20 00:37 98.4 85 20 152/80 (104) 98 Room Air Colin Sahu M.D. Jun 09, 2020 00:55
[2020-06-09 01:12] LABS: BASOPHILS % (AUTO) 1.1 % (0.0-2.0); EOSINOPHILS % (AUTO) 3.5 % (0.0-3.0); HEMATOCRIT 41.1 % (42.0-52.0); HEMOGLOBIN 13.1 G/DL (14.2-18.0); LYMPHOCYTES % (AUTO) 19.1 % (20.0-45.0); MEAN CORPUSCULAR VOLUME 102 FL (80-99); MONOCYTES % (AUTO) 9.3 % (1.0-10.0); NEUTROPHILS % (AUTO) 66.9 % (45.0-75.0); PLATELET COUNT 207 K/UL (150-450); RED BLOOD COUNT 4.02 M/UL (4.70-6.10); RED CELL DISTRIBUTION WIDTH 13.3 % (11.6-14.8); WHITE BLOOD COUNT 7.3 K/UL (4.8-10.8)
[2020-06-09 01:21] LABS: ANION GAP 4 mmol/L (5-15); BLOOD UREA NITROGEN 16 mg/dL (7-18); CALCIUM 8.8 MG/DL (8.5-10.1); CARBON DIOXIDE 32 MMOL/L (21-32); CHLORIDE 104 MMOL/L (98-107); POTASSIUM 4.5 MMOL/L (3.5-5.1); SODIUM 140 MMOL/L (136-145)
[2020-06-09 01:25] LABS: ALANINE AMINOTRANSFERASE 26 U/L (12-78); ALBUMIN 2.7 G/DL (3.4-5.0); ALBUMIN/GLOBULIN RATIO 0.6 (1.0-2.7); ALKALINE PHOSPHATASE 91 U/L (46-116); ASPARTATE AMINO TRANSFERASE 32 U/L (15-37); BILIRUBIN,TOTAL 0.3 MG/DL (0.2-1.0)
--- NOTE | 2020-06-09 01:54 | NUR ---
ED Nurse Note: Brief removed and dried blood cleaned from pt. Extra linens removed. Pt's mouth swabbed, and pt placed on surveillance monitor. Pt tolerated well.
--- NOTE | 2020-06-09 06:31 | NUR ---
NURSE NOTES: Received patient on [facility], on room air. With gtube intact with scant drainage coming from the site. With PICC on the right upper arm double lumen catheter. Belongings checked. Skin assessment done, wound photos taken and recorded. Called Dr. Betancourt for admission orders and followed up. Waiting for call back. Bed in lowest, lock engaged and alarm on. Will continue to monitor.
--- NOTE | 2020-06-09 07:58 | NUR ---
NURSE NOTES: Obtained admission orders from Dr. Steward.
--- NOTE | 2020-06-09 08:00 | NUR ---
NURSE NOTES: Received report from Jose Luis ARNOLD. Patient is awake, non-verbal, in no distress. LUAN PICC in place from SNF with clean, intact dressing, PICC flushes and draws blood. Seizure and fall precautions maintained, side rails padded x3, bed low and locked, bed alarm armed.
--- NOTE | 2020-06-09 08:00 | NUR ---
NURSE HAND-OFF: Important Events on Shift: Admission Patient Status: Diet: NPO Pending Orders: Pending Results/Labs: Pending MD notification: Latest Vital Signs: Temperature 97.3 , Pulse 112 , B/P 138 /74 , Respiratory Rate 20 , O2 SAT 100 , Room Air, O2 Flow Rate . Vital Sign Comment: Latest [place]an Fall Score: 70 Fall Risk: High Risk Safety Measures: Call light Within Reach, Bed Alarm Zone 1, Side Rails Side Rails x2, Bed position Low and Locked. Fall Precautions: Report given to CATALINA Gutierrez.
--- NOTE | 2020-06-09 08:01 | NUR ---
NURSE NOTES: Patient seen and examined by Dr. Berger, per MD merlos to use g-tube.
[2020-06-09] MEDS ORDERED: Albuterol/Ipratropium 3ml neb HHN PRN (08:15)
--- NOTE | 2020-06-09 09:18 | NUR ---
RD ASSESSMENT & RECOMMENDATIONS SEE CARE ACTIVITY FOR COMPLETE ASSESSMENT DAILY ESTIMATED NEEDS: Needs based on Pulmonary, wound, wt loss 48.6kg 30-35 kcals/kg 4948-8346 total kcals 1.25-1.5 g protein/kg 61-73 g total protein 25-30 mL/kg 7749-3202 total fluid mLs NUTRITION DIAGNOSIS: Difficulty swallowing r/t dysphagia as evidenced by pt is PEG dep for all nutritional needs. CURRENT TF: Glucerna 1.2 @45ml/hr x 22 hrs (On Synthroid QD) ENTERAL NUTRITION RECOMMENDATIONS: Glucerna 1.2 @ 55ml/hr x 22 hrs to provide 1210ml, 1452kcal, 73g prot, 974ml free water - Rec to increase goal rate to 55ml/hr - HOLD 1 Hr before and after synthroid meds- TF to run max 22 hrs - Flush per MD/ HOB over 30 degrees ADDITIONAL RECOMMENDATIONS: 1) Calibrated bed scale wts weekly 2) Monitor lytes closely, replete as needed 3) Wound healing: Add Camron 1pkt BID via PEG 4) Rec A1C for eval .
[2020-06-09] MEDS: levETIRAcetam 500mg/NS100ml 100 ML IVPB SCH ×2 (09:42→21:36)
[2020-06-09] MEDS: Zinc Oxide Oint 2oz TOPIC SCH ×3 (09:42→16:31)
[2020-06-09] MEDS: D5 1/2NS w/KCl 20mEq 1,000 ML IV SCH ×2 (09:42→21:35)
--- NOTE | 2020-06-09 09:51 | NUR ---
CASE MANAGEMENT:REVIEW 69 YR OLD MALE BIBA FROM [facility] [employer] CC: MALFUNCTIONING GTUBE AND SITE BLEEDING SI: MALFUNCTIONING GTUBE 98.5 85 20 152/80 98% ON RA H/H-13.1/41.1 GLUCOSE+108 IS: IV KEPPRA Q12 IVF@75/HR ZINC OXIDE TOPICAL TID CT ABD/PELVIS TYPE + SCREEN : TO MED/SURG [facility] DCP: RETURN TO SNF PLAN: GI CONSULT
[2020-06-09] MEDS ORDERED: Gastrograffin 30ml ORAL PRN (11:00)
--- NOTE | 2020-06-09 11:03 | NUR ---
NURSE NOTES: Patient found pulling g-tube with blood noted around site and large blood clot on site, tube did not come out. Notified Dr. Berger and ordered to do KUB with gastrografin contrast to confirm placement and ok to use if in place. Tube feed not initiated.
--- NOTE | 2020-06-09 11:47 | Consultation ---
DATE OF CONSULTATION: 06/09/2020 CHIEF COMPLAINT: Malfunctioning G-tube. HISTORY OF PRESENT ILLNESS: Most of history per chart. This is a 69-year-old residential patient with Down syndrome was brought from the residential given he pulled his G-tube. In the ER, they replaced the G-tube but there was a lot of bleeding around it and there was a lot of excoriation and skin damage from it so patient was admitted to the hospital for evaluation. PAST MEDICAL HISTORY: 1. Down syndrome. 2. CHF. 3. Dysphagia with G-tube. 4. History of constipation. PAST SURGICAL HISTORY: Unknown. ALLERGIES: To sulfa. MEDICATIONS: Please see medication reconciliation list. SOCIAL HISTORY: Currently lives in a residential. No recent history of tobacco, alcohol, drug abuse. FAMILY HISTORY: Noncontributory. REVIEW OF SYSTEMS: Unable to obtain. PHYSICAL EXAMINATION: VITAL SIGNS: Temperature 97.3, pulse is 112, respirations 20, blood pressure is 138/74. HEENT: Normocephalic and atraumatic. Sclerae anicteric. NECK: Supple. No evidence of obvious lymphadenopathy. CARDIOVASCULAR: Regular rate and rhythm. Plus S1-S2. LUNGS: Decreased breath sounds bilaterally based on supine exam. ABDOMEN: Soft, nondistended. There is a 28-Yi G-tube. At the G-tube site, there was a lot of discharge, bleeding, and some skin excoriation around the G-tube site. The G-tube was easily flushed. EXTREMITIES: No cyanosis, no clubbing, no edema. LABORATORY DATA: White count 7.3, hemoglobin 13, hematocrit 41, platelet count is 207. ASSESSMENT AND PLAN: This is a 69-year-old patient with mental retardation pull the G-tube which has been replaced in the ER. PLAN: Start using the tube. Order zinc oxide for the skin care. The patient was wound care nurse evaluation for the skin care around the G-tube site. The patient also has evidence of macrocytosis, we will order folic acid and B12. Chapin Berger M.D. DR: Jd JOB#: [id number] CC:
--- NOTE | 2020-06-09 13:01 | Diagnostic Imaging Report ---
Indication: Evaluation of gastrostomy tube placement Technique: Supine view of the abdomen after injection of water-soluble contrast into gastrostomy Comparison: 02/16/2018 Findings: Contrast opacifies the stomach and proximal small bowel. No contrast extravasation is demonstrated. The bowel gas pattern is unremarkable. Impression: Satisfactory position of gastrostomy tube. Patient's nurse notified at the time of interpretation
--- NOTE | 2020-06-09 13:35 | NUR ---
RADIOLOGY DEPT., ABDOMEN X-RAY DONE FOR G-TUBE PLCMT.-P.DYE
--- NOTE | 2020-06-09 14:04 | NUR ---
NURSE NOTES: Per Dr. Belle, g-tube is in correct position. Tube feeding initiated at 25mL/hr to start, will increase to goal per patient tolerance, free water flush given.
--- NOTE | 2020-06-09 14:38 | Consultation ---
History of Present Illness General Date patient seen: Jun 09, 2020 Chief Complaint: Malfunctioning Gastric Tube Present Illness HPI 69-year-old male with recent traumatic G-tube malfunction status post replacement with trauma causing bleeding and maceration of the periwound identified new G-tube placed GI evaluated for appropriate G-tube positioning surgery called to help and assist with the periwound of the surgical G-tube tube. Patient seen, patient by, chart reviewed patient unable to provide history given current condition. Patient known to me from prior seen 2019 identified at that time have decubitus ulcers. Since BMI noted albumin level labs noted Allergies: Coded Allergies: SULFA (SULFONAMIDE ANTIBIOTICS) (Verified Allergy, Unknown, 09/02/15) Medication History Scheduled Aspirin Ec* (Aspirin Ec*), 81 MG ORAL DAILY, (Reported) Atorvastatin Calcium* (Atorvastatin Calcium*), 10 MG ORAL BEDTIME, (Reported) Bismuth Subsalicylate ([place] Bismuth), 30 ML PO Q6HR, (Reported) Calcium Carbonate (Oyster Shell Calcium), 500 MG PO TID, (Reported) Clotrimazole (Clotrimazole), 30 GM TP PRN, (Reported) Denosumab (Prolia), 60 MG SUBQ EVERY 6 MONTHS, (Reported) Docusate Sodium* (Docusate Sodium*), 100 MG ORAL PRN, (Reported) Docusate Sodium* (Colace*), 100 MG ORAL DAILY, (Reported) Econazole Nitrate (Econazole Nitrate), 1 APPLIC TOP DAILY, (Reported) Guaifenesin/Dextromethorphan (Q-Tussin Dm Syrup), 10 ML PO Q6HR, (Reported) Levetiracetam* (Levetiracetam*), 500 MG ORAL TWICE A DAY, (Reported) Levothyroxine Sodium* (Levothyroxine Sodium*), 100 MCG ORAL DAILY, (Reported) Levothyroxine Sodium* (Levothyroxine Sodium*), 125 MCG ORAL DAILY, (Reported) Linaclotide (Linzess), 145 MCG PO DAILY, (Reported) Loratadine (Claritin*), 10 MG PO PRN, (Reported) Magnesium Hydroxide* (Milk Of Magnesia*), 15 ML ORAL PRN, (Reported) Metoprolol Succinate* (Metoprolol Succinate*), 12.5 MG ORAL DAILY, (Reported) Olanzapine* (Zyprexa*), 5 MG ORAL DAILY, (Reported) Polyethylene Glycol 3350* (Miralax*), 17 GM ORAL DAILY, (Reported) Pravastatin Sod* (Pravastatin Sod*), 20 MG ORAL BEDTIME, (Reported) Scheduled PRN Acetaminophen (Acetaminophen), 325 MG PO Q4HR PRN for For Pain, (Reported) Mineral Oil/Carrageenan (Kondremul Microemulsion), 2.5 ML PO BID PRN for Per rx protocol, (Reported) Miscellaneous Medications Ipratropium/Albuterol Sulfate (Iprat-Albut 0.5-3(2.5) Mg/3 Ml), 3 ML IH, (Reported) Patient History Limited by: medical condition History Provided By: Medical Record, PMD Healthcare decision maker Resuscitation status Advanced Directive on File Past Medical/Surgical History Past Medical/Surgical History: (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 (2) Malfunction of gastrostomy tube (3) Hypothyroidism (4) Constipation (5) Colonoscopy planned (6) Down syndrome (7) Congenital heart disease, adult (8) History of CHF (congestive heart failure) (9) Anxiety (10) Sepsis (11) Subdural hematoma, post-traumatic (12) Decubital ulcer Review of Systems All Other Systems: negative except mentioned in HPI ROS Narrative Limited given patient's medical condition Physical Exam General Appearance: no apparent distress Lines, tubes and drains: peripheral HEENT: normocephalic, atraumatic, anicteric, mucous membranes moist Neck: supple, normal inspection Respiratory/Chest: normal breath sounds, no respiratory distress, no accessory muscle use Abdomen: soft, no organomegaly, no mass, feeding tube - Periwound maceration, other Genitourinary/Rectal: normal rectal exam Extremities: normal range of motion, non-tender, normal inspection Skin Exam: warm/dry Neurologic: alert Last 24 Hour Vital Signs Date Time Temp Pulse Resp B/P (MAP) Pulse Ox O2 Delivery O2 Flow Rate FiO2 06/09/20 12:00 98.2 59 20 124/64 (84) 97 06/09/20 09:00 Room Air 06/09/20 08:00 97.8 81 20 119/84 (96) 96 06/09/20 04:41 Room Air 06/09/20 04:00 97.3 112 20 138/74 (95) 100 06/09/20 01:53 102 17 101/71 97 Room Air 06/09/20 00:54 98.4 99 20 152/80 98 Room Air 06/09/20 00:37 98.4 85 20 152/80 (104) 98 Room Air Laboratory Tests Test 06/09/20 01:00 White Blood Count 7.3 K/UL (4.8-10.8) Red Blood Count 4.02 M/UL (4.70-6.10) L Hemoglobin 13.1 G/DL (14.2-18.0) L Hematocrit 41.1 % (42.0-52.0) L Mean Corpuscular Volume 102 FL (80-99) H Mean Corpuscular Hemoglobin 32.5 PG (27.0-31.0) H Mean Corpuscular Hemoglobin Concent 31.8 G/DL (32.0-36.0) L Red Cell Distribution Width 13.3 % (11.6-14.8) Platelet Count 207 K/UL (150-450) Mean Platelet Volume 9.7 FL (6.5-10.1) Neutrophils (%) (Auto) 66.9 % (45.0-75.0) Lymphocytes (%) (Auto) 19.1 % (20.0-45.0) L Monocytes (%) (Auto) 9.3 % (1.0-10.0) Eosinophils (%) (Auto) 3.5 % (0.0-3.0) H Basophils (%) (Auto) 1.1 % (0.0-2.0) Sodium Level 140 MMOL/L (136-145) Potassium Level 4.5 MMOL/L (3.5-5.1) Chloride Level 104 MMOL/L (98-107) Carbon Dioxide Level 32 MMOL/L (21-32) Anion Gap 4 mmol/L (5-15) L Blood Urea Nitrogen 16 mg/dL (7-18) Creatinine 1.0 MG/DL (0.55-1.30) Estimat Glomerular Filtration Rate > 60 mL/min (>60) Glucose Level 108 MG/DL (74-106) H Calcium Level 8.8 MG/DL (8.5-10.1) Total Bilirubin 0.3 MG/DL (0.2-1.0) Aspartate Amino Transf (AST/SGOT) 32 U/L (15-37) Alanine Aminotransferase (ALT/SGPT) 26 U/L (12-78) Alkaline Phosphatase 91 U/L (46-116) Total Protein 7.0 G/DL (6.4-8.2) Albumin 2.7 G/DL (3.4-5.0) L Globulin 4.3 g/dL Albumin/Globulin Ratio 0.6 (1.0-2.7) L Lipase 71 U/L (73-393) L Height (Feet): 5 Height (Inches): 4.00 Weight (Pounds): 133 Medications Current Medications Medications (Trade) Dose Ordered Sig/Eddy Route PRN Reason Start Time Stop Time Status Last Admin Dose Admin Acetaminophen (Tylenol) 650 mg Q6H PRN RECTAL Temp >100.5/Mild Pain (1-3) 06/09/20 08:00 07/09/20 07:59 Albuterol/ Ipratropium (Albuterol/ Ipratropium) 3 ml Q4H PRN HHN Shortness of Breath 06/09/20 08:15 06/14/20 08:14 Chlorhexidine Gluconate (Tesha-Hex 2%) 1 applic BEDTIME TOPIC 06/09/20 21:00 09/07/20 20:59 Dextrose/ Electrolytes 1,000 ml @ 75 mls/hr [id number] IV 06/09/20 09:00 07/09/20 08:59 06/09/20 09:42 Diatrizoate Meglum/ Diatrizoate Sod (Gastrografin) 30 ml ONCE PRN ORAL Radiology Procedure 06/09/20 11:00 06/10/20 23:59 Iohexol (OMNIPAQUE-300 100ml) 100 ml NOW PRN INJ Radiology Procedure 06/09/20 00:45 06/11/20 00:44 Levetiracetam 100 ml @ 400 mls/hr Q12HR IVPB 06/09/20 09:30 09/07/20 09:29 06/09/20 09:42 Levothyroxine Sodium (Synthroid) 88 mcg DAILY@0630 GT 06/09/20 09:00 07/09/20 08:59 06/09/20 09:41 Zinc Oxide (Zinc Oxide) 1 applic THREE TIMES A DAY TOPIC 06/09/20 10:00 09/07/20 09:59 06/09/20 13:38 Assessment/Plan Problem List: (1) Malfunction of gastrostomy tube Assessment & Plan: 69-year-old male with recent traumatic G-tube insertion identified bleeding at the time since now hemostatic. G-tube reinserted by emergency department check by GI appropriate placement identified. KUB noted. Periwound maceration identified zinc oxide applied. Local wound care will be continued. Okay to use feeding tube at this time. Will follow with recommendations thank you DAILY ESTIMATED NEEDS: Needs based on Pulmonary, wound, wt loss 48.6kg 30-35 kcals/kg 5750-4343 total kcals 1.25-1.5 g protein/kg 61-73 g total protein 25-30 mL/kg 4312-8869 total fluid mLs NUTRITION DIAGNOSIS: Difficulty swallowing r/t dysphagia as evidenced by pt is PEG dep for all nutritional needs. CURRENT TF: Glucerna 1.2 @45ml/hr x 22 hrs (On Synthroid QD) ENTERAL NUTRITION RECOMMENDATIONS: Glucerna 1.2 @ 55ml/hr x 22 hrs to provide 1210ml, 1452kcal, 73g prot, 974ml free water - Rec to increase goal rate to 55ml/hr - HOLD 1 Hr before and after synthroid meds- TF to run max 22 hrs - Flush per MD/ HOB over 30 degrees ADDITIONAL RECOMMENDATIONS: 1) Calibrated bed scale wts weekly 2) Monitor lytes closely, replete as needed 3) Wound healing: Add Camron 1pkt BID via PEG 4) Rec A1C for eval ICD Codes: K94.23 - Gastrostomy malfunction SNOMED: 056601763 (2) encephalopathy due to toxin (3) Hypothyroidism ICD Codes: E03.9 - Hypothyroidism SNOMED: 63140168 (4) Constipation ICD Codes: K59.00 - Constipation SNOMED: 31476421 (5) Colonoscopy planned ICD Codes: FOC1976 - Reserved for [id number] codable problem concepts SNOMED: 010803700 (6) Down syndrome ICD Codes: Q90.9 - Down syndrome SNOMED: 08500243 (7) Congenital heart disease, adult ICD Codes: Q24.9 - Congenital heart disease, adult SNOMED: 82164510 (8) History of CHF (congestive heart failure) ICD Codes: Z86.79 - Personal history of other diseases of the circulatory system SNOMED: 382298637 (9) Anxiety ICD Codes: F41.9 - Anxiety SNOMED: 14564393 (10) Sepsis ICD Codes: A41.9 - Sepsis, unspecified organism SNOMED: 20072849 (11) Subdural hematoma, post-traumatic ICD Codes: S06.5X9A - Traumatic subdural hemorrhage with loss of consciousness of unspecified duration, initial encounter SNOMED: 55873033 (12) Decubital ulcer Assessment & Plan: Patient presents with multiple wounds upon admission Partial thickness stage 2 sacral decubitus wound with periwound erythema. multiple small blotchy areas. area of resolving wound noted cephalad. Incontinence associated dermatitis perineal area and buttocks, erythema noted. Intact serous blister noted to posterior L tibia,surrounding skin is pink and intact. Stable brown eschar noted to L heel(L)0.7cm x (W)0.9cm.Periwound without erythema or fluctuance. R heel boggy but blanchable.Diffused red rash noted to bilat lower ext. No other areas of skin concerns noted. Tx.Plan: Apply Triad to Buttocks and groin areas with each perineal care. Apply Cavilon Skin barrier to both heels .Off-load heels with pillow. Reposition at least every 2hours or as tolerated. Support surface mattress. ICD Codes: L89.90 - Pressure ulcer of unspecified site, unspecified stage SNOMED: 140686687 Joselito Dorman Jun 09, 2020 14:38
--- NOTE | 2020-06-09 18:11 | NUR ---
NURSE NOTES:WOUND CARE NOTES:Pt presented on admission with Scaly rash abd, Bilat antecubitals, L forearm and web spaces of fingers both hands.Reported to primary nurse to follow-up with PCP. Peristomal GT site grossly erythematous. Small amt formula mixed with Sanguineous exudate oozing from Stoma. Incontinence Associated dermatitis R and L Groin and scrotum. Affected areas are grossly erythematous and denuded. Non-Blanchable erythema Sacrum,R and L Gluteal cheeks with areas that maroon within affected injury(L)3.8cm x (W)7.2cm. Historical scars from previous wounds also noted to sacrum and L buttocks. large rosaceous plaques noted to lumbar area few smaller plaques noted to both lower extremities. Rubor with dry peeling skin noted to plantar aspects of both feet. Semi-detached nail matrix R 1st metatarsal . DTPI L Heel (L)3.5cm x (W)6cm. Base of Pressure Injury is purpuric and fluctuant. Tx.plan:Apply Phytoplex Skin Nourishing Lotion to back and both lower extremities Twice daily. Wash GT site with soap and water. Pat dry. Apply Zinc Oxide Paste to Peristomal Gt area.Loosely place gauze between disk and skin . Change Daily and prn. Apply Moisture Barrier Paste to Bilat groin and scrotum with each Incontinence care. Apply Moisture Barrier to Sacrum. Cover with Optifoam drsg. Change every 3 days and prn. Apply Cavilon Skin Barrier to Both heels. Cover each heel with Optifoam drsgs . Change every 7 days and prn. Reposition at least every 2houors or as tolerated. Off-load heels with pillow.
--- NOTE | 2020-06-09 18:16 | History & Physical ---
History and Physical History & Physicial Dictated for Int Med-no [id number]. Amor Berg MD Jun 09, 2020 18:16
--- NOTE | 2020-06-09 19:14 | History and Physical Report ---
DATE OF ADMISSION: 06/09/2020 CHIEF COMPLAINT: Patient is a 69-year-old male who presents with chief complaint of gastrostomy tube malfunction. HISTORY OF PRESENT ILLNESS: Patient is a resident of [facility]. Patient himself is nonverbal. Patient apparently pulled out his gastrostomy tube earlier today, 06/09/2020. Gastrostomy site was hemorrhaging. Patient was transferred to [facility] for evaluation. Patient is admitted with gastrostomy tube malfunction and hemorrhage. REVIEW OF SYSTEMS: Unable to assess secondary to patient's mental status. PAST MEDICAL HISTORY: Significant for: 1. Down syndrome. 2. Congestive heart failure. 3. History of mental retardation. 4. Chronic subdural hematoma. 5. Cerebrovascular disease, status post cerebrovascular accident. 6. Dysphagia. 7. History of right bundle-branch block. 8. Hypertension. 9. Hypercholesterolemia. 10. Seizure disorder. PAST SURGICAL HISTORY: Significant for PEG placement in February of 2018. CURRENT MEDICATIONS: 1. Tylenol 650 mg per G-tube q.4h. p.r.n. 2. Aspirin 81 mg per G-tube daily. 3. Atorvastatin 10 mg per G-tube at bedtime. 4. Calcium carbonate 500 mg per G-tube daily. 5. Heparin 5000 units subcutaneously q8h. 6. Lactulose 30 mL per G-tube daily. 7. Keppra 1000 mg per G-tube twice daily. 8. Metoprolol 25 mg per G-tube daily. 9. Multivitamin per G-tube daily. 10. [place]-3 1000 mg per G-tube daily. 11. Renvela 800 mg per G-tube daily. 12. Vitamin C 500 mg per G-tube daily. 13. Vitamin D 2000 units per G-tube daily. 14. Zinc sulfate 220 mg per G-tube daily. ALLERGIES: To sulfa. SOCIAL HISTORY: Patient is single and is a resident of [facility]. PHYSICAL EXAMINATION: VITAL SIGNS: Temperature 97.3, respirations 20, pulse 112, blood pressure 130/74. GENERAL: Patient is well-developed, well-nourished male, in no apparent distress. HEENT: Eyes, pupils are equal and responsive to light and accommodation. Extraocular movements are intact. NECK: Supple. No lymphadenopathy. CHEST: Lungs are clear to auscultation bilaterally without wheezes or rales. CARDIOVASCULAR: Regular rhythm and rate. S1, S2 are normal without murmurs, rubs, or gallops. ABDOMEN: Soft, nontender, nondistended. Positive bowel sounds. No evidence of hepatosplenomegaly. Currently, no rebound or guarding noted. EXTREMITIES: Negative for clubbing, cyanosis, or edema. RECTAL/GENITAL: Not performed. NEUROLOGIC: Cranial nerves II through XII grossly intact without focal deficits. LABORATORY STUDIES: WBC 7.3, hemoglobin 13.1, hematocrit 41.1, platelets 207,000. Sodium 140, potassium 4.5, chloride 104, CO2 32, BUN 16, creatinine 1.0, glucose 108. ASSESSMENT: This is a 69-year-old male. 1. Gastrostomy tube malfunction. 2. Down syndrome. 3. Congestive heart failure. 4. Mental retardation. 5. Chronic subdural hematoma. 6. Cerebrovascular disease, status post cerebrovascular accident. 7. Dysphagia. 8. Right bundle-branch block. 9. Hypertension. 10. Seizure disorder. 11. Hypercholesterolemia. TREATMENT: 1. Malfunction of gastrostomy tube. A Gastroenterology consultation has been obtained with Dr. Chapin Berger. Follow recommendations of Gastroenterology. Hold tube feedings for now. 2. Hypertension. Continue metoprolol as above. 3. Seizure disorder. Continue Keppra as above. 4. Hypercholesterolemia. Continue atorvastatin as above. 5. Down syndrome. 6. Congestive heart failure. 7. Mental retardation. 8. Chronic subdural hematoma. 9. Cerebrovascular disease, status post cerebrovascular accident. 10. Dysphagia. 11. Right bundle-branch block. Amor Berg M.D. DR: JARROD JOB#: [id number] CC: APOLLO
--- NOTE | 2020-06-09 19:17 | NUR ---
NURSE HAND-OFF: Important Events on Shift: Wound care orders, g-tube feeding, PUI COVID Patient Status: stable Diet: tube feeding Pending Orders: n/a Pending Results/Labs: n/a Pending MD notification: n/a Latest Vital Signs: Temperature 96.7 , Pulse 70 , B/P 128 /71 , Respiratory Rate 20 , O2 SAT 94 Vital Sign Comment: VS stable Latest Santillan Fall Score: 70 Fall Risk: High Risk Safety Measures: Call light Within Reach, Bed Alarm Zone 1, Side Rails Side Rails x3, Bed position Low and Locked. Fall Precautions: Patient Fall Education Report given to Apryl ARNOLD.
--- NOTE | 2020-06-09 19:30 | NUR ---
NURSE NOTES: Received patient in no apparent distress. Awake, nonverbal. PICC line patent and intact. G-tube in place, running VITAL AF 1.2 55cc/hr, 30cc residual noted, flushed, elevated HOB. Bed in lowest position. Call light within reach. Will continue to monitor.
--- NOTE | 2020-06-09 21:30 | NUR ---
NURSE NOTES: Elimite cream applied, PICC line dressing changed.
[2020-06-09] MEDS: Dyna-Hex 2% Top Sol 2oz TOPIC SCH (21:35)
[2020-06-10] VITALS: BP 101/63
[2020-06-10 04:00] VITALS: BP 125/57
[2020-06-10 07:39] LABS: ANION GAP 5 mmol/L (5-15); BLOOD UREA NITROGEN 16 mg/dL (7-18); CALCIUM 7.8 MG/DL (8.5-10.1); CARBON DIOXIDE 30 MMOL/L (21-32); CHLORIDE 108 MMOL/L (98-107); CREATININE 0.8 MG/DL (0.55-1.30); POTASSIUM 4.4 MMOL/L (3.5-5.1); SODIUM 143 MMOL/L (136-145)
--- NOTE | 2020-06-10 07:45 | NUR ---
NURSE NOTES: [facility] G-tube site on the abdomen is not bleeding. No s/s of infection noted on the G-tube site. Circumference of the right upper arm is 28cm. No s/s of infection noted. No s/s of respiratory distress noted on room air. No s/s of pain noted. Both lumens of picc line patent. Bed in lowest position, locked, bed alarm on. Call light within reach.
[2020-06-10 08:00] VITALS: BP 97/62
--- NOTE | 2020-06-10 08:04 | NUR ---
NURSE HAND-OFF: Important Events on Shift: Still bleeding G-tube site, dressing changed, Elimite cream applied and washed after 8hrs, PICC line dressing changed, dressing on sacral bilateral heels changed. Patient Status: Diet:G-tube feeding, VITAL AF 1.2 55cc/hr Pending Orders: Pending Results/Labs: Pending MD notification: Latest Vital Signs: Temperature 97.6 , Pulse 84 , B/P 125 /57 , Respiratory Rate 20 , O2 SAT 94 , Room Air, O2 Flow Rate . Vital Sign Comment: Latest Sant[place]an Fall Score: 70 Fall Risk: High Risk Safety Measures: Call light Within Reach, Bed Alarm Zone 1, Side Rails Side Rails x3, Bed position Low and Locked. Fall Precautions: Yellow Socks Yellow Gown Door Sign Patient Fall Education Report given to Ramón ARNOLD.
[2020-06-10 08:11] LABS: % IRON SATURATION 27 % (15-50); IRON 57 ug/dL (50-175); TOTAL IRON BINDING CAPACITY 214 ug/dL (250-450)
[2020-06-10] MEDS: levETIRAcetam 500mg/NS100ml 100 ML IVPB SCH ×2 (09:32→21:21)
[2020-06-10] MEDS: Zinc Oxide Oint 2oz TOPIC SCH ×3 (09:33→19:25)
[2020-06-10 10:20] LABS: BASOPHILS % (AUTO) 1.8 % (0.0-2.0); HEMOGLOBIN 12.7 G/DL (14.2-18.0); LYMPHOCYTES % (AUTO) 25.7 % (20.0-45.0); MEAN CORPUSCULAR VOLUME 104 FL (80-99); NEUTROPHILS % (AUTO) 58.6 % (45.0-75.0); PLATELET COUNT 196 K/UL (150-450); RED BLOOD COUNT 3.85 M/UL (4.70-6.10); RED CELL DISTRIBUTION WIDTH 13.4 % (11.6-14.8); WHITE BLOOD COUNT 5.5 K/UL (4.8-10.8)
--- NOTE | 2020-06-10 10:42 | General Progress Note ---
Subjective ROS Limited/Unobtainable: No Allergies: Coded Allergies: SULFA (SULFONAMIDE ANTIBIOTICS) (Verified Allergy, Unknown, 09/02/15) Objective Last 24 Hour Vital Signs Date Time Temp Pulse Resp B/P (MAP) Pulse Ox O2 Delivery O2 Flow Rate FiO2 06/10/20 08:00 97.8 90 18 97/62 (74) 98 06/10/20 04:00 97.6 84 20 125/57 (79) 94 06/10/20 00:00 97.5 98 18 101/63 (76) 96 06/09/20 21:00 Room Air 06/09/20 20:00 97.6 75 19 145/86 (105) 97 06/09/20 16:00 96.7 70 20 128/71 (90) 94 06/09/20 12:00 98.2 59 20 124/64 (84) 97 Intake and Output 06/09/20 06/10/20 19:00 07:00 Intake Total 1055 ml 1730 ml Balance 1055 ml 1730 ml Intake Free Water 100 ml 200 ml IV Total 700 ml 925 ml Tube Feeding 255 ml 605 ml # Voids 2 3 # Bowel Movements 2 Laboratory Tests 06/10/20 06:00: Sodium Level 143, Potassium Level 4.4, Chloride Level 108H, Carbon Dioxide Level 30, Anion Gap 5, Blood Urea Nitrogen 16, Creatinine 0.8, Estimat Glomerular Filtration Rate > 60, Glucose Level 99, Calcium Level 7.8L, Iron Level 57, Total Iron Binding Capacity 214L, Percent Iron Saturation 27, Unsaturated Iron Binding 157, Vitamin B12 Level 722, Folate 9.4 06/10/20 09:23: White Blood Count 5.5, Red Blood Count 3.85L, Hemoglobin 12.7L, Hematocrit 40.0L , Mean Corpuscular Volume 104H, Mean Corpuscular Hemoglobin 33.0H, Mean Corpuscular Hemoglobin Concent 31.8L, Red Cell Distribution Width 13.4, Platelet Count 196, Mean Platelet Volume 9.8, Neutrophils (%) (Auto) 58.6, Lymphocytes (%) (Auto) 25.7, Monocytes (%) (Auto) 11.0H, Eosinophils (%) (Auto) 3.0, Basophils (%) (Auto) 1.8 Height (Feet): 5 Height (Inches): 4.00 Weight (Pounds): 133 General Appearance: no apparent distress EENT: normal ENT inspection Neck: supple Cardiovascular: normal rate Respiratory/Chest: decreased breath sounds Abdomen: normal bowel sounds, non tender, soft Extremities: non-tender Assessment/Plan Assessment/Plan: 1. Down syndrome. 2. CHF. 3. Dysphagia with G-tube. 4. History of constipation. GTF GT care talib GT care Chapin Berger MD Jun 10, 2020 10:42
--- NOTE | 2020-06-10 11:36 | Internal Med Progress Note ---
Subjective Date of Service: Jun 10, 2020 Physician Name Amor Berg Attending Physician Jasen Steward MD Current Medications Medications (Trade) Dose Ordered Sig/Eddy Route PRN Reason Start Time Stop Time Status Last Admin Dose Admin Acetaminophen (Tylenol) 650 mg Q6H PRN RECTAL Temp >100.5/Mild Pain (1-3) 06/09/20 08:00 07/09/20 07:59 Albuterol/ Ipratropium (Albuterol/ Ipratropium) 3 ml Q4H PRN HHN Shortness of Breath 06/09/20 08:15 06/14/20 08:14 Chlorhexidine Gluconate (Tesha-Hex 2%) 1 applic BEDTIME TOPIC 06/09/20 21:00 09/07/20 20:59 06/09/20 21:35 Dextrose/ Electrolytes 1,000 ml @ 75 mls/hr [id number] IV 06/09/20 09:00 07/09/20 08:59 06/09/20 21:35 Diatrizoate Meglum/ Diatrizoate Sod (Gastrografin) 30 ml ONCE PRN ORAL Radiology Procedure 06/09/20 11:00 06/10/20 23:59 Iohexol (OMNIPAQUE-300 100ml) 100 ml NOW PRN INJ Radiology Procedure 06/09/20 00:45 06/11/20 00:44 Levetiracetam 100 ml @ 400 mls/hr Q12HR IVPB 06/09/20 09:30 09/07/20 09:29 06/10/20 09:32 Levothyroxine Sodium (Synthroid) 88 mcg DAILY@0630 GT 06/09/20 09:00 07/09/20 08:59 06/10/20 05:41 Zinc Oxide (Zinc Oxide) 1 applic THREE TIMES A DAY TOPIC 06/09/20 10:00 09/07/20 09:59 06/10/20 09:33 Allergies: Coded Allergies: SULFA (SULFONAMIDE ANTIBIOTICS) (Verified Allergy, Unknown, 09/02/15) ROS Limited/Unobtainable: Yes Subjective 69 YO M with history of Down's syndrome and dysphagia admitted with G-tube malfunction. S/P G-tube replaced in ER. Cover for Int Med-Dr Steward Objective Last Vital Signs Date Time Temp Pulse Resp B/P (MAP) Pulse Ox O2 Delivery O2 Flow Rate FiO2 06/10/20 08:00 97.8 90 18 97/62 (74) 98 06/09/20 21:00 Room Air Laboratory Tests Test 06/10/20 06:00 06/10/20 09:23 Sodium Level 143 MMOL/L (136-145) Potassium Level 4.4 MMOL/L (3.5-5.1) Chloride Level 108 MMOL/L (98-107) H Carbon Dioxide Level 30 MMOL/L (21-32) Anion Gap 5 mmol/L (5-15) Blood Urea Nitrogen 16 mg/dL (7-18) Creatinine 0.8 MG/DL (0.55-1.30) Estimat Glomerular Filtration Rate > 60 mL/min (>60) Glucose Level 99 MG/DL (74-106) Calcium Level 7.8 MG/DL (8.5-10.1) L Iron Level 57 ug/dL (50-175) Total Iron Binding Capacity 214 ug/dL (250-450) L Percent Iron Saturation 27 % (15-50) Unsaturated Iron Binding 157 ug/dL (112-346) Vitamin B12 Level 722 PG/ML (193-986) Folate 9.4 NG/ML (8.6-58.9) White Blood Count 5.5 K/UL (4.8-10.8) Red Blood Count 3.85 M/UL (4.70-6.10) L Hemoglobin 12.7 G/DL (14.2-18.0) L Hematocrit 40.0 % (42.0-52.0) L Mean Corpuscular Volume 104 FL (80-99) H Mean Corpuscular Hemoglobin 33.0 PG (27.0-31.0) H Mean Corpuscular Hemoglobin Concent 31.8 G/DL (32.0-36.0) L Red Cell Distribution Width 13.4 % (11.6-14.8) Platelet Count 196 K/UL (150-450) Mean Platelet Volume 9.8 FL (6.5-10.1) Neutrophils (%) (Auto) 58.6 % (45.0-75.0) Lymphocytes (%) (Auto) 25.7 % (20.0-45.0) Monocytes (%) (Auto) 11.0 % (1.0-10.0) H Eosinophils (%) (Auto) 3.0 % (0.0-3.0) Basophils (%) (Auto) 1.8 % (0.0-2.0) Intake and Output 06/09/20 06/10/20 19:00 07:00 Intake Total 1055 ml 1730 ml Balance 1055 ml 1730 ml Intake Free Water 100 ml 200 ml IV Total 700 ml 925 ml Tube Feeding 255 ml 605 ml # Voids 2 3 # Bowel Movements 2 Objective PHYSICAL EXAMINATION: GENERAL: Patient is well-developed, well-nourished male, in no apparent distress. HEENT: Eyes, pupils are equal and responsive to light and accommodation. Extraocular movements are intact. NECK: Supple. No lymphadenopathy. CHEST: Lungs are clear to auscultation bilaterally without wheezes or rales. CARDIOVASCULAR: Regular rhythm and rate. S1, S2 are normal without murmurs, rubs, or gallops. ABDOMEN: Soft, nontender, nondistended. Positive bowel sounds. No evidence of hepatosplenomegaly. Currently, no rebound or guarding noted. EXTREMITIES: Negative for clubbing, cyanosis, or edema. RECTAL/GENITAL: Not performed. NEUROLOGIC: Cranial nerves II through XII grossly intact without focal deficits. Assessment/Plan Assessment/Plan ASSESSMENT: This is a 69-year-old male. 1. Gastrostomy tube malfunction. 2. Down syndrome. 3. Congestive heart failure. 4. Mental retardation. 5. Chronic subdural hematoma. 6. Cerebrovascular disease, status post cerebrovascular accident. 7. Dysphagia. 8. Right bundle-branch block. 9. Hypertension. 10. Seizure disorder. 11. Hypercholesterolemia. TREATMENT: 1. Malfunction of gastrostomy tube. S/P G-tube replaced in emerg room on 06/09/20. A Gastroenterology consultation= Dr. Chapin Berger. Follow recommendations of Gastroenterology. Tube feedings have been restarted 2. Hypertension. Continue metoprolol as above. 3. Seizure disorder. Continue Keppra as above. 4. Hypercholesterolemia. Continue atorvastatin as above. 5. Down syndrome. 6. Congestive heart failure. 7. Mental retardation. 8. Chronic subdural hematoma. 9. Cerebrovascular disease, status post cerebrovascular accident. 10. Dysphagia. 11. Right bundle-branch block. Amor Berg MD Jun 10, 2020 11:36
[2020-06-10 12:00] VITALS: BP 103/56
[2020-06-10] MEDS: D5 1/2NS w/KCl 20mEq 1,000 ML IV SCH (12:27)
[2020-06-10] MEDS ORDERED: ASPIRIN81 MG GT (13:13)
[2020-06-10] MEDS ORDERED: ACETAMINOPHEN325 M1 ORAL (13:13)
[2020-06-10] MEDS ORDERED: MULTIVITAM9 MG/15 M1 GT (13:13)
[2020-06-10] MEDS ORDERED: LEVETIRACE500 MG/51 GT (13:13)
[2020-06-10] MEDS ORDERED: METOPROLOL TART25 MG GT (13:13)
[2020-06-10] MEDS ORDERED: ZINC SULFATE220 M1 GT (13:13)
[2020-06-10] MEDS ORDERED: LACTULOSE20 GM/301 GT (13:13)
[2020-06-10] MEDS ORDERED: CHLORHEXIDINE473 ML MM (13:13)
[2020-06-10] MEDS ORDERED: HEPARIN2000 UNIT/ IV (13:13)
[2020-06-10] MEDS ORDERED: DUONEB 0.5-3(2.53 ML HHN (13:13)
[2020-06-10] MEDS ORDERED: RENVELA0.8 GM GT (13:13)
[2020-06-10] MEDS ORDERED: VITAMIN D325 MC1 GT (13:13)
[2020-06-10] MEDS ORDERED: VITAMIN C500 M1 GT (13:13)
[2020-06-10] MEDS ORDERED: OMEGA 3 1,0001 EACH GT (13:13)
[2020-06-10] MEDS ORDERED: LEVOTHYROXINE125 MCG GT (13:13)
--- NOTE | 2020-06-10 13:39 | Surgery Progress Note ---
Surgery Progress Note Subjective Additional Comments no bleeding this am dressings going well zinc placed no n/v tolerating tf Objective Last 24 Hour Vital Signs Date Time Temp Pulse Resp B/P (MAP) Pulse Ox O2 Delivery O2 Flow Rate FiO2 06/10/20 08:00 97.8 90 18 97/62 (74) 98 06/10/20 04:00 97.6 84 20 125/57 (79) 94 06/10/20 00:00 97.5 98 18 101/63 (76) 96 06/09/20 21:00 Room Air 06/09/20 20:00 97.6 75 19 145/86 (105) 97 06/09/20 16:00 96.7 70 20 128/71 (90) 94 I&O Intake and Output 06/09/20 06/10/20 19:00 07:00 Intake Total 1055 ml 1730 ml Balance 1055 ml 1730 ml Intake Free Water 100 ml 200 ml IV Total 700 ml 925 ml Tube Feeding 255 ml 605 ml # Voids 2 3 # Bowel Movements 2 Dressing: saturated Cardiovascular: RSR Respiratory: decreased breath sounds Abdomen: soft, non-tender, present bowel sounds, other, non-distended Extremities: no tenderness, no cyanosis Laboratory Tests Test 06/10/20 06:00 06/10/20 09:23 Sodium Level 143 MMOL/L (136-145) Potassium Level 4.4 MMOL/L (3.5-5.1) Chloride Level 108 MMOL/L (98-107) H Carbon Dioxide Level 30 MMOL/L (21-32) Anion Gap 5 mmol/L (5-15) Blood Urea Nitrogen 16 mg/dL (7-18) Creatinine 0.8 MG/DL (0.55-1.30) Estimat Glomerular Filtration Rate > 60 mL/min (>60) Glucose Level 99 MG/DL (74-106) Calcium Level 7.8 MG/DL (8.5-10.1) L Iron Level 57 ug/dL (50-175) Total Iron Binding Capacity 214 ug/dL (250-450) L Percent Iron Saturation 27 % (15-50) Unsaturated Iron Binding 157 ug/dL (112-346) Vitamin B12 Level 722 PG/ML (193-986) Folate 9.4 NG/ML (8.6-58.9) White Blood Count 5.5 K/UL (4.8-10.8) Red Blood Count 3.85 M/UL (4.70-6.10) L Hemoglobin 12.7 G/DL (14.2-18.0) L Hematocrit 40.0 % (42.0-52.0) L Mean Corpuscular Volume 104 FL (80-99) H Mean Corpuscular Hemoglobin 33.0 PG (27.0-31.0) H Mean Corpuscular Hemoglobin Concent 31.8 G/DL (32.0-36.0) L Red Cell Distribution Width 13.4 % (11.6-14.8) Platelet Count 196 K/UL (150-450) Mean Platelet Volume 9.8 FL (6.5-10.1) Neutrophils (%) (Auto) 58.6 % (45.0-75.0) Lymphocytes (%) (Auto) 25.7 % (20.0-45.0) Monocytes (%) (Auto) 11.0 % (1.0-10.0) H Eosinophils (%) (Auto) 3.0 % (0.0-3.0) Basophils (%) (Auto) 1.8 % (0.0-2.0) Plan Problems: (1) Malfunction of gastrostomy tube Assessment & Plan: 69-year-old male with recent traumatic G-tube insertion identified bleeding at the time since now hemostatic. G-tube reinserted by emergency department check by GI appropriate placement identified. KUB noted. Periwound maceration identified zinc oxide applied. Local wound care will be continued. Okay to use feeding tube at this time. Will follow with recommendations thank you DAILY ESTIMATED NEEDS: Needs based on Pulmonary, wound, wt loss 48.6kg 30-35 kcals/kg 4384-8755 total kcals 1.25-1.5 g protein/kg 61-73 g total protein 25-30 mL/kg 3667-9720 total fluid mLs NUTRITION DIAGNOSIS: Difficulty swallowing r/t dysphagia as evidenced by pt is PEG dep for all nutritional needs. 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 multiple small blotchy areas. area of resolving wound noted cephalad. Incontinence associated dermatitis perineal area and buttocks, erythema noted. Intact serous blister noted to posterior L tibia,surrounding skin is pink and intact. Stable brown eschar noted to L heel(L)0.7cm x (W)0.9cm.Periwound without erythema or fluctuance. R heel boggy but blanchable.Diffused red rash noted to bilat lower ext. No other areas of skin concerns noted. Tx.Plan: Apply Triad to Buttocks and groin areas with each perineal care. Apply Cavilon Skin barrier to both heels .Off-load heels with pillow. Reposition at least every 2hours or as tolerated. Support surface mattress. Joselito Dorman Jun 10, 2020 13:39
[2020-06-10 16:00] VITALS: BP 111/65
--- NOTE | 2020-06-10 19:35 | NUR ---
NURSE HAND-OFF: Important Events on Shift:uneventful Patient Status: stable Diet:tube feeding Pending Orders: n/a Pending Results/Labs:n/a Pending MD notification:n/a Latest Vital Signs: Temperature 98.4 , Pulse 99 , B/P 111 /65 , Respiratory Rate 18 , O2 SAT 95 , Room Air, O2 Flow Rate . Vital Sign Comment: stable Latest Santillan Fall Score: 70 Fall Risk: High Risk Safety Measures: Call light Within Reach, Bed Alarm Zone 1, Side Rails Side Rails x3, Bed position Low and Locked. Fall Precautions: Yellow Socks Yellow Gown Door Sign Patient Fall Education Report given to CATALINA Pink.
--- NOTE | 2020-06-10 19:36 | NUR ---
NURSE NOTES: Received patient in no apparent distress. Awake, nonverbal. PICC line patent and intact. G-tube in place, running VITAL AF 1.2 55cc/hr, 20cc residual noted, flushed, elevated HOB. Bed in lowest position. Call light within reach. Will continue to monitor.
[2020-06-10 20:00] VITALS: BP 99/58
[2020-06-10] MEDS: Dyna-Hex 2% Top Sol 2oz TOPIC SCH (21:21)
[2020-06-11] VITALS: BP 100/55
[2020-06-11] MEDS: D5 1/2NS w/KCl 20mEq 1,000 ML IV SCH ×2 (01:08→13:24)
[2020-06-11 04:00] VITALS: BP 105/64
--- NOTE | 2020-06-11 07:00 | NUR ---
NURSE NOTES: Received patient from CATALINA Pink. Patient observed to be awake, alert x0. Patient currently on room air, no s/sx of SOB/Distress, no s/sx of pain or discomfort. Patient with GTube running Vital AF 1.2 55cc/hr tolerating well. PICC line located on LUAN running D51/2 NS + 20 MEQ kcl @ 75cc/hr site dry, patent, and intact. With condom catheter draining well, bed placed on lowest and locked, call light placed within reach and will continue to monitor for any changes in patient's condition.
[2020-06-11 07:06] LABS: ANION GAP 6 mmol/L (5-15); BLOOD UREA NITROGEN 15 mg/dL (7-18); CALCIUM 8.5 MG/DL (8.5-10.1); CARBON DIOXIDE 29 MMOL/L (21-32); CHLORIDE 107 MMOL/L (98-107); CREATININE 0.8 MG/DL (0.55-1.30); POTASSIUM 4.8 MMOL/L (3.5-5.1); SODIUM 142 MMOL/L (136-145)
[2020-06-11 07:19] LABS: BASOPHILS % (AUTO) 1.3 % (0.0-2.0); EOSINOPHILS % (AUTO) 0.2 % (0.0-3.0); HEMATOCRIT 37.8 % (42.0-52.0); HEMOGLOBIN 12.3 G/DL (14.2-18.0); LYMPHOCYTES % (AUTO) 8.2 % (20.0-45.0); MEAN CORPUSCULAR VOLUME 104 FL (80-99); MONOCYTES % (AUTO) 7.4 % (1.0-10.0); NEUTROPHILS % (AUTO) 82.8 % (45.0-75.0); PLATELET COUNT 202 K/UL (150-450); RED BLOOD COUNT 3.66 M/UL (4.70-6.10); RED CELL DISTRIBUTION WIDTH 13.7 % (11.6-14.8); WHITE BLOOD COUNT 10.2 K/UL (4.8-10.8)
--- NOTE | 2020-06-11 07:54 | NUR ---
NURSE HAND-OFF: Important Events on Shift: Patient Status: Diet: G-tube feeding, Vital AF 55cc/hr Pending Orders: Pending Results/Labs: Pending MD notification: Latest Vital Signs: Temperature 98.8 , Pulse 97 , B/P 105 /64 , Respiratory Rate 20 , O2 SAT 93 , Room Air, O2 Flow Rate . Vital Sign Comment: Latest Santillan Fall Score: 70 Fall Risk: High Risk Safety Measures: Call light Within Reach, Bed Alarm Zone 1, Side Rails Side Rails x3, Bed position Low and Locked. Fall Precautions: Yellow Socks Yellow Gown Door Sign Patient Fall Education Report given to Yun ARNOLD.
[2020-06-11 08:00] VITALS: BP 101/63
--- NOTE | 2020-06-11 08:25 | Surgery Progress Note ---
Surgery Progress Note Subjective Additional Comments afebrile, HD stable labs noted micro reviewed comfortable appearing no n/v Objective Last 24 Hour Vital Signs Date Time Temp Pulse Resp B/P (MAP) Pulse Ox O2 Delivery O2 Flow Rate FiO2 06/11/20 04:00 98.8 97 20 105/64 (78) 93 06/11/20 00:00 98.8 110 18 100/55 (70) 93 06/10/20 21:00 Room Air 06/10/20 20:00 99.1 108 18 99/58 (72) 93 06/10/20 16:00 98.4 99 18 111/65 (80) 95 06/10/20 12:00 97.6 90 18 103/56 (72) 95 06/10/20 09:00 Room Air I&O Intake and Output 06/10/20 06/11/20 19:00 07:00 Intake Total 605 ml 1655 ml Output Total 1000 ml 400 ml Balance -395 ml 1255 ml Intake Free Water 200 ml IV Total 550 ml 850 ml Tube Feeding 55 ml 605 ml Output Urine Total 1000 ml 400 ml # Voids 1 # Bowel Movements 2 1 Dressing: dry Wound: clean Cardiovascular: RSR Respiratory: clear, decreased breath sounds Abdomen: soft, non-tender, present bowel sounds, other, non-distended Extremities: no edema, no tenderness, no cyanosis Laboratory Tests Test 06/10/20 09:23 06/11/20 06:15 White Blood Count 5.5 K/UL (4.8-10.8) 10.2 K/UL (4.8-10.8) # Red Blood Count 3.85 M/UL (4.70-6.10) L 3.66 M/UL (4.70-6.10) L Hemoglobin 12.7 G/DL (14.2-18.0) L 12.3 G/DL (14.2-18.0) L Hematocrit 40.0 % (42.0-52.0) L 37.8 % (42.0-52.0) L Mean Corpuscular Volume 104 FL (80-99) H 104 FL (80-99) H Mean Corpuscular Hemoglobin 33.0 PG (27.0-31.0) H 33.5 PG (27.0-31.0) H Mean Corpuscular Hemoglobin Concent 31.8 G/DL (32.0-36.0) L 32.4 G/DL (32.0-36.0) Red Cell Distribution Width 13.4 % (11.6-14.8) 13.7 % (11.6-14.8) Platelet Count 196 K/UL (150-450) 202 K/UL (150-450) Mean Platelet Volume 9.8 FL (6.5-10.1) 9.3 FL (6.5-10.1) Neutrophils (%) (Auto) 58.6 % (45.0-75.0) 82.8 % (45.0-75.0) H Lymphocytes (%) (Auto) 25.7 % (20.0-45.0) 8.2 % (20.0-45.0) L Monocytes (%) (Auto) 11.0 % (1.0-10.0) H 7.4 % (1.0-10.0) Eosinophils (%) (Auto) 3.0 % (0.0-3.0) 0.2 % (0.0-3.0) Basophils (%) (Auto) 1.8 % (0.0-2.0) 1.3 % (0.0-2.0) Sodium Level 142 MMOL/L (136-145) Potassium Level 4.8 MMOL/L (3.5-5.1) Chloride Level 107 MMOL/L (98-107) Carbon Dioxide Level 29 MMOL/L (21-32) Anion Gap 6 mmol/L (5-15) Blood Urea Nitrogen 15 mg/dL (7-18) Creatinine 0.8 MG/DL (0.55-1.30) Estimat Glomerular Filtration Rate > 60 mL/min (>60) Glucose Level 133 MG/DL (74-106) H Calcium Level 8.5 MG/DL (8.5-10.1) Plan Problems: (1) Malfunction of gastrostomy tube Assessment & Plan: 69-year-old male with recent traumatic G-tube insertion identified bleeding at the time since now hemostatic. G-tube reinserted by emergency department check by GI appropriate placement identified. KUB noted. Periwound maceration identified zinc oxide applied. Local wound care will be continued. Okay to use feeding tube at this time. Will follow with recommendations thank you DAILY ESTIMATED NEEDS: Needs based on Pulmonary, wound, wt loss 48.6kg 30-35 kcals/kg 0392-7588 total kcals 1.25-1.5 g protein/kg 61-73 g total protein 25-30 mL/kg 4824-9852 total fluid mLs NUTRITION DIAGNOSIS: Difficulty swallowing r/t dysphagia as evidenced by pt is PEG dep for all nutritional needs. 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 multiple small blotchy areas. area of resolving wound noted cephalad. Incontinence associated dermatitis perineal area and buttocks, erythema noted. Intact serous blister noted to posterior L tibia,surrounding skin is pink and intact. Stable brown eschar noted to L heel(L)0.7cm x (W)0.9cm.Periwound without erythema or fluctuance. R heel boggy but blanchable.Diffused red rash noted to bilat lower ext. No other areas of skin concerns noted. Tx.Plan: Apply Triad to Buttocks and groin areas with each perineal care. Apply Cavilon Skin barrier to both heels .Off-load heels with pillow. Reposition at least every 2hours or as tolerated. Support surface mattress. Joselito Dorman Jun 11, 2020 08:25
[2020-06-11] MEDS: levETIRAcetam 500mg/NS100ml 100 ML IVPB SCH ×2 (08:51→21:22)
[2020-06-11] MEDS: Zinc Oxide Oint 2oz TOPIC SCH ×3 (08:52→17:28)
[2020-06-11 12:00] VITALS: BP 106/65
--- NOTE | 2020-06-11 13:27 | General Progress Note ---
Subjective ROS Limited/Unobtainable: No Allergies: Coded Allergies: SULFA (SULFONAMIDE ANTIBIOTICS) (Verified Allergy, Unknown, 09/02/15) Objective Last 24 Hour Vital Signs Date Time Temp Pulse Resp B/P (MAP) Pulse Ox O2 Delivery O2 Flow Rate FiO2 06/11/20 12:00 97.5 85 18 106/65 (79) 96 06/11/20 09:00 Room Air 06/11/20 08:00 97.8 88 18 101/63 (76) 93 06/11/20 04:00 98.8 97 20 105/64 (78) 93 06/11/20 00:00 98.8 110 18 100/55 (70) 93 06/10/20 21:00 Room Air 06/10/20 20:00 99.1 108 18 99/58 (72) 93 06/10/20 16:00 98.4 99 18 111/65 (80) 95 Intake and Output 06/10/20 06/11/20 19:00 07:00 Intake Total 605 ml 1655 ml Output Total 1000 ml 400 ml Balance -395 ml 1255 ml Intake Free Water 200 ml IV Total 550 ml 850 ml Tube Feeding 55 ml 605 ml Output Urine Total 1000 ml 400 ml # Voids 1 # Bowel Movements 2 1 Laboratory Tests 06/11/20 06:15: White Blood Count 10.2#, Red Blood Count 3.66L, Hemoglobin 12.3L, Hematocrit 37.8L, Mean Corpuscular Volume 104H, Mean Corpuscular Hemoglobin 33.5H, Mean Corpuscular Hemoglobin Concent 32.4, Red Cell Distribution Width 13.7, Platelet Count 202, Mean Platelet Volume 9.3, Neutrophils (%) (Auto) 82.8H, Lymphocytes (%) (Auto) 8.2L, Monocytes (%) (Auto) 7.4, Eosinophils (%) (Auto) 0.2, Basophils (%) (Auto) 1.3, Sodium Level 142, Potassium Level 4.8, Chloride Level 107, Carbon Dioxide Level 29, Anion Gap 6, Blood Urea Nitrogen 15, Creatinine 0.8, Estimat Glomerular Filtration Rate > 60, Glucose Level 133H, Calcium Level 8.5 Height (Feet): 5 Height (Inches): 4.00 Weight (Pounds): 133 General Appearance: no apparent distress EENT: normal ENT inspection Neck: supple Cardiovascular: normal rate Respiratory/Chest: decreased breath sounds Abdomen: normal bowel sounds, non tender, soft Extremities: non-tender Assessment/Plan Assessment/Plan: 1. Down syndrome. 2. CHF. 3. Dysphagia with G-tube. 4. History of constipation. GTF GT care talib GT care Chapin Berger MD Jun 11, 2020 13:27
--- NOTE | 2020-06-11 15:59 | NUR ---
CASE MANAGEMENT:REVIEW 06/11/20 SI: GTUBE MALFUNCTION. CHF 97.5 85 18 106/65 96% ON RA H/H-12.3/37.8 IS: IV NIVIA Q12 IVF@75/HR ZINC OXIDE TOPIC TID : MED/SURG STATUS DCP: FROM [employer]
[2020-06-11 16:00] VITALS: BP 107/68
--- NOTE | 2020-06-11 17:33 | Internal Med Progress Note ---
Subjective Physician Name Jasen Steward Attending Physician Jasen Steward MD Current Medications Medications (Trade) Dose Ordered Sig/Eddy Route PRN Reason Start Time Stop Time Status Last Admin Dose Admin Acetaminophen (Tylenol) 650 mg Q6H PRN RECTAL Temp >100.5/Mild Pain (1-3) 06/09/20 08:00 07/09/20 07:59 Albuterol/ Ipratropium (Albuterol/ Ipratropium) 3 ml Q4H PRN HHN Shortness of Breath 06/09/20 08:15 06/14/20 08:14 Chlorhexidine Gluconate (Tesha-Hex 2%) 1 applic BEDTIME TOPIC 06/09/20 21:00 09/07/20 20:59 06/10/20 21:21 Dextrose/ Electrolytes 1,000 ml @ 75 mls/hr [id number] IV 06/09/20 09:00 07/09/20 08:59 06/11/20 13:24 Levetiracetam 100 ml @ 400 mls/hr Q12HR IVPB 06/09/20 09:30 09/07/20 09:29 06/11/20 08:51 Levothyroxine Sodium (Synthroid) 88 mcg DAILY@0630 GT 06/09/20 09:00 07/09/20 08:59 06/11/20 05:56 Zinc Oxide (Zinc Oxide) 1 applic THREE TIMES A DAY TOPIC 06/09/20 10:00 09/07/20 09:59 06/11/20 17:28 Allergies: Coded Allergies: SULFA (SULFONAMIDE ANTIBIOTICS) (Verified Allergy, Unknown, 09/02/15) Subjective responsivity to open his eyes, no acute distress, WBC 10.2. Objective Last Vital Signs Date Time Temp Pulse Resp B/P (MAP) Pulse Ox O2 Delivery O2 Flow Rate FiO2 06/11/20 12:00 97.5 85 18 106/65 (79) 96 06/11/20 09:00 Room Air Laboratory Tests Test 06/11/20 06:15 White Blood Count 10.2 K/UL (4.8-10.8) # Red Blood Count 3.66 M/UL (4.70-6.10) L Hemoglobin 12.3 G/DL (14.2-18.0) L Hematocrit 37.8 % (42.0-52.0) L Mean Corpuscular Volume 104 FL (80-99) H Mean Corpuscular Hemoglobin 33.5 PG (27.0-31.0) H Mean Corpuscular Hemoglobin Concent 32.4 G/DL (32.0-36.0) Red Cell Distribution Width 13.7 % (11.6-14.8) Platelet Count 202 K/UL (150-450) Mean Platelet Volume 9.3 FL (6.5-10.1) Neutrophils (%) (Auto) 82.8 % (45.0-75.0) H Lymphocytes (%) (Auto) 8.2 % (20.0-45.0) L Monocytes (%) (Auto) 7.4 % (1.0-10.0) Eosinophils (%) (Auto) 0.2 % (0.0-3.0) Basophils (%) (Auto) 1.3 % (0.0-2.0) Sodium Level 142 MMOL/L (136-145) Potassium Level 4.8 MMOL/L (3.5-5.1) Chloride Level 107 MMOL/L (98-107) Carbon Dioxide Level 29 MMOL/L (21-32) Anion Gap 6 mmol/L (5-15) Blood Urea Nitrogen 15 mg/dL (7-18) Creatinine 0.8 MG/DL (0.55-1.30) Estimat Glomerular Filtration Rate > 60 mL/min (>60) Glucose Level 133 MG/DL (74-106) H Calcium Level 8.5 MG/DL (8.5-10.1) Microbiology Date/Time Source Procedure Growth Status 06/09/20 10:40 Nasopharynx Coronavirus COVID-19 PCR ([facility]) - Final Complete Intake and Output 06/10/20 06/11/20 19:00 07:00 Intake Total 605 ml 1655 ml Output Total 1000 ml 400 ml Balance -395 ml 1255 ml Intake Free Water 200 ml IV Total 550 ml 850 ml Tube Feeding 55 ml 605 ml Output Urine Total 1000 ml 400 ml # Voids 1 # Bowel Movements 2 1 Objective General: No acute distress,possible to open his eyes. HEENT: NCAT, sclera anicteric, PERRL, Neck: Supple, no significant jugular venous distention, Lungs: fair inspiratory effort, decreased at bases, no Wheeze or Rales. Heart: Regular rate and rhythm, normal S1/S2, no murmurs Abdomen: soft, nontender, nondistended. Normoactive bowel sounds, PEG site is i ntact, / Rectal: Refused and deferred. Extremities: No Cyanosis , clubbing or edema. Neuro: limited secondary to patient's status, however moving upper extremities spontaneously Skin: warm, no rash. Assessment/Plan Assessment/Plan ASSESSMENT: This is a 69-year-old male. 1. Gastrostomy tube malfunction. 2. Down syndrome. 3. Congestive heart failure. 4. Mental retardation. 5. Chronic subdural hematoma. 6. Cerebrovascular disease, status post cerebrovascular accident. 7. Dysphagia. 8. Right bundle-branch block. 9. Hypertension. 10. Seizure disorder. 11. Hypercholesterolemia. TREATMENT: 1. Malfunction of gastrostomy tube. S/P G-tube replaced in emerg room on 06/09/20. A Gastroenterology consultation= Dr. Chapin Berger. Follow recommendations of Gastroenterology. Tube feedings have been restarted 2. Hypertension. Continue metoprolol as above. 3. Seizure disorder. Continue Keppra as above. 4. Hypercholesterolemia. Continue atorvastatin as above. 5. Down syndrome. 6. Congestive heart failure. 7. Mental retardation. 8. Chronic subdural hematoma. 9. Cerebrovascular disease, status post cerebrovascular accident. 10. Dysphagia. 11. Right bundle-branch block. discharge planning to SNF. Jasen Steward MD Jun 11, 2020 17:33
--- NOTE | 2020-06-11 19:30 | NUR ---
NURSE NOTES: Received report from CATALINA Gonzalez. Pt is asleep. Call light within reach, bed locked and in lowest position. Tube feeding and IVF infusing well. Will continue to monitor.
--- NOTE | 2020-06-11 19:46 | NUR ---
NURSE HAND-OFF: Important Events on Shift:pui Patient Status: stable Diet: vital af 1.2 @ 55cc Pending Orders: n.a Pending Results/Labs:n.a Pending MD notification:n,.a Latest Vital Signs: Temperature 98.2 , Pulse 99 , B/P 107 /68 , Respiratory Rate 18 , O2 SAT 96 , Room Air, O2 Flow Rate . Vital Sign Comment: stable Latest Santillan Fall Score: 70 Fall Risk: High Risk Safety Measures: Call light Within Reach, Bed Alarm Zone 1, Side Rails Side Rails x3, Bed position Low and Locked. Fall Precautions: Yellow Socks Yellow Gown Door Sign Patient Fall Education Report given to CATALINA Marti.
[2020-06-11 20:00] VITALS: BP 118/56
[2020-06-11] MEDS: Dyna-Hex 2% Top Sol 2oz TOPIC SCH (21:22)
[2020-06-12] VITALS: BP 105/58
[2020-06-12] MEDS: D5 1/2NS w/KCl 20mEq 1,000 ML IV SCH (03:48)
[2020-06-12 04:00] VITALS: BP 109/60
--- NOTE | 2020-06-12 06:01 | NUR ---
RD ASSESSMENT & RECOMMENDATIONS SEE CARE ACTIVITY FOR COMPLETE ASSESSMENT DAILY ESTIMATED NEEDS: Needs based on cardiac, 63kg 25-30 kcals/kg 8473-4538 total kcals 1-1.3 g protein/kg 63-82 g total protein 25-30 mL/kg 4906-7601 total fluid mLs NUTRITION DIAGNOSIS: Difficulty swallowing r/t dysphagia as evidenced by pt is PEG dep for all nutritional needs. CURRENT TF:Vital AF 1.2 @ 55ml/hr ordered- held 2 hrs for Synthroid ENTERAL NUTRITION RECOMMENDATIONS: Jevity 1.2 @ 60ml/hr x 22 hrs to provide 1320ml, 1584kcal, 73g prot, 1082ml free water - Elemental TF of Vital AF not indicated, rec Jevity 1.2 - Rec goal rate of 60ml, initiate @ 30ml/hrx 6hrs, advance 10ml q 4-6 hrs as tolerated to goal rate. - HOLD 1 Hr before and after Synthroid meds- TF to run max 22 hrs - HOB over 30 degrees/ without IVF, h2o flush of 120ml q 6hrs ADDITIONAL RECOMMENDATIONS: 1) Calibrated bed scale wts weekly 2) Monitor lytes closely, replete as needed 3) Wound healing: TF @ goal will provide 100% RDI Add Camron BID via PEG 4) Consider DC D5 w/ TF @ goal for good BG control
--- NOTE | 2020-06-12 07:03 | NUR ---
NURSE NOTES: Discontinued patient's isolation status as ordered by doctor due to negative PCR.
--- NOTE | 2020-06-12 07:25 | NUR ---
NURSE HAND-OFF: Important Events on Shift: Pt tolerating tube feeding Patient Status: sleeping Diet: Vital AF 1.2 Pending Orders: Pending Results/Labs: Pending MD notification: Latest Vital Signs: Temperature 98.4 , Pulse 86 , B/P 109 /60 , Respiratory Rate 18 , O2 SAT 95 , Room Air, O2 Flow Rate . Vital Sign Comment: VSS Latest Santillan Fall Score: 70 Fall Risk: High Risk Safety Measures: Call light Within Reach, Bed Alarm Zone 1, Side Rails Side Rails x3, Bed position Low and Locked. Fall Precautions: Yellow Socks Yellow Gown Door Sign Patient Fall Education Report given to CATALINA Arriola.
--- NOTE | 2020-06-12 07:40 | NUR ---
NURSE NOTES: received report from CATALINA Marti. patient in bed. open eyes. non verbal. no respiratory distress noted on room air. no facial grimacing noted. PICC line On LUAN running D5 1/2ns 20kcl @75/hr. dressing changed on 06/09/20. intact and dry. condom cath draining. GT running vital Af 1.2@55/hr. Gt site red and irritated. Placed a new gauze and abd binder. elevated HOB at all times. bed in the lowest position and locked. call light within reach. alarm on.
[2020-06-12 08:00] VITALS: BP 101/54
[2020-06-12] MEDS: levETIRAcetam 500mg/NS100ml 100 ML IVPB SCH ×2 (09:08→20:41)
[2020-06-12] MEDS: Zinc Oxide Oint 2oz TOPIC SCH ×3 (09:09→17:04)
--- NOTE | 2020-06-12 09:59 | NUR ---
CASE MANAGEMENT:REVIEW 06/12/20 SI: GTUBE MALFUNCTION. CHF 97.5 93 18 101/54 95% ON RA IS: IV KEPPRA Q12 IVF@75/HR ZINC OXIDE TOPIC TID : MED/SURG STATUS DCP: FROM COM DEV
[2020-06-12 12:00] VITALS: BP 121/86
--- NOTE | 2020-06-12 12:50 | General Progress Note ---
Subjective ROS Limited/Unobtainable: No Allergies: Coded Allergies: SULFA (SULFONAMIDE ANTIBIOTICS) (Verified Allergy, Unknown, 09/02/15) Objective Last 24 Hour Vital Signs Date Time Temp Pulse Resp B/P (MAP) Pulse Ox O2 Delivery O2 Flow Rate FiO2 06/12/20 12:00 98.1 105 20 121/86 (98) 92 06/12/20 09:00 Room Air 06/12/20 08:00 97.5 93 18 101/54 (70) 95 06/12/20 04:00 98.4 86 18 109/60 (76) 95 06/12/20 00:00 98.1 74 18 105/58 (74) 94 06/11/20 21:00 Room Air 06/11/20 20:00 97.8 104 18 118/56 (76) 96 06/11/20 16:00 98.2 99 18 107/68 (81) 96 Intake and Output 06/11/20 06/12/20 19:00 07:00 Intake Total 935 ml Output Total 1000 ml 1400 ml Balance -65 ml -1400 ml Intake Oral 360 ml Free Water 300 ml Tube Feeding 275 ml Output Urine Total 1000 ml 1400 ml # Voids 1 # Bowel Movements 1 1 Height (Feet): 5 Height (Inches): 4.00 Weight (Pounds): 133 General Appearance: no apparent distress EENT: normal ENT inspection Neck: supple Cardiovascular: normal rate Respiratory/Chest: decreased breath sounds Abdomen: normal bowel sounds, non tender, soft Extremities: non-tender Assessment/Plan Assessment/Plan: 1. Down syndrome. 2. CHF. 3. Dysphagia with G-tube. 4. History of constipation. GTF GT care talib GT care dc IVF Chapin Berger MD Jun 12, 2020 12:50
[2020-06-12 16:00] VITALS: BP 110/69
--- NOTE | 2020-06-12 17:02 | NUR ---
*-*DISCHARGE PLANNING*-* PATIENT HAS BEEN REFERRED BACK TO: [facility] P: [phone] S/W [place], WILL CALL BACK AFTER REVIEW.
--- NOTE | 2020-06-12 17:04 | NUR ---
*-*DISCHARGE PLANNING*-* PATIENT HAS BEEN REFERRED BACK TO: [facility] P: [phone] FOR NURSE TO NURSE REPORT ROOM# 11.C ~~~~~~~~~~~~~~PENDING DISCHARGE ORDER~~~
--- NOTE | 2020-06-12 19:20 | NUR ---
NURSE NOTES: received pt and report from CATALINA Arriola. pt alert and oriented x 1, nonverbal, with no acute s/s of distress and no s/s of pain at this time. COndom cath noted and draining. LUAN PICC line noted clean dry and intact and saline locked. Gtube patent and running, dressing is clean dry and intact. Optifoam dressing on sacral and bilat heels clean dry and intact. plan of care discussed.
--- NOTE | 2020-06-12 19:23 | NUR ---
NURSE HAND-OFF: Important Events on Shift: dc planning . gt site care Patient Status: stable Diet: vital af 1.2@55/hr Pending Orders: n/a Pending Results/Labs:n/a Pending MD notification:n/a Latest Vital Signs: Temperature 97.8 , Pulse 92 , B/P 110 /69 , Respiratory Rate 20 , O2 SAT 99 , Room Air, O2 Flow Rate . Vital Sign Comment: stable Latest Santillan Fall Score: 70 Fall Risk: High Risk Safety Measures: Call light Within Reach, Bed Alarm Zone 1, Side Rails Side Rails x3, Bed position Low and Locked. Fall Precautions: Yellow Socks Yellow Gown Door Sign Patient Fall Education Report given to CATALINA Crowder.
--- NOTE | 2020-06-12 19:45 | Internal Med Progress Note ---
Subjective Physician Name Jasen Steward Attending Physician Jasen Steward MD Current Medications Medications (Trade) Dose Ordered Sig/Eddy Route PRN Reason Start Time Stop Time Status Last Admin Dose Admin Acetaminophen (Tylenol) 650 mg Q6H PRN RECTAL Temp >100.5/Mild Pain (1-3) 06/09/20 08:00 07/09/20 07:59 Albuterol/ Ipratropium (Albuterol/ Ipratropium) 3 ml Q4H PRN HHN Shortness of Breath 06/09/20 08:15 06/14/20 08:14 Chlorhexidine Gluconate (Tesha-Hex 2%) 1 applic BEDTIME TOPIC 06/09/20 21:00 09/07/20 20:59 06/11/20 21:22 Levetiracetam 100 ml @ 400 mls/hr Q12HR IVPB 06/09/20 09:30 09/07/20 09:29 06/12/20 09:08 Levothyroxine Sodium (Synthroid) 88 mcg DAILY@0630 GT 06/09/20 09:00 07/09/20 08:59 06/12/20 06:06 Zinc Oxide (Zinc Oxide) 1 applic THREE TIMES A DAY TOPIC 06/09/20 10:00 09/07/20 09:59 06/12/20 17:04 Allergies: Coded Allergies: SULFA (SULFONAMIDE ANTIBIOTICS) (Verified Allergy, Unknown, 09/02/15) Subjective responsivity to open his eyes, no acute distress. tolerated tube feeding at 55 cc/hr. Objective Last Vital Signs Date Time Temp Pulse Resp B/P (MAP) Pulse Ox O2 Delivery O2 Flow Rate FiO2 06/12/20 16:00 97.8 92 20 110/69 (83) 99 06/12/20 09:00 Room Air Intake and Output 06/11/20 06/12/20 19:00 07:00 Intake Total 935 ml 55 ml Output Total 1000 ml 1400 ml Balance -65 ml -1345 ml Intake Oral 360 ml Free Water 300 ml Tube Feeding 275 ml 55 ml Output Urine Total 1000 ml 1400 ml # Voids 1 # Bowel Movements 1 1 Objective General: No acute distress,possible to open his eyes. HEENT: NCAT, sclera anicteric, PERRL, Neck: Supple, no significant jugular venous distention, Lungs: fair inspiratory effort, decreased at bases, no Wheeze or Rales. Heart: Regular rate and rhythm, normal S1/S2, no murmurs Abdomen: soft, nontender, nondistended. Normoactive bowel sounds, PEG site is intact, / Rectal: Refused and deferred. Extremities: No Cyanosis , clubbing or edema. Neuro: limited secondary to patient's status, however moving upper extremities spontaneously Skin: warm, no rash. Assessment/Plan Assessment/Plan ASSESSMENT: This is a 69-year-old male. 1. Gastrostomy tube malfunction. 2. Down syndrome. 3. Congestive heart failure. 4. Mental retardation. 5. Chronic subdural hematoma. 6. Cerebrovascular disease, status post cerebrovascular accident. 7. Dysphagia. 8. Right bundle-branch block. 9. Hypertension. 10. Seizure disorder. 11. Hypercholesterolemia. TREATMENT: 1. Malfunction of gastrostomy tube. S/P G-tube replaced in emerg room on 06/09/20. A Gastroenterology consultation= Dr. Chapin Berger. Follow recommendations of Gastroenterology. Tube feedings have been restarted 2. Hypertension. Continue metoprolol as above. 3. Seizure disorder. Continue Keppra as above. 4. Hypercholesterolemia. Continue atorvastatin as above. 5. Down syndrome. 6. Congestive heart failure. 7. Mental retardation. 8. Chronic subdural hematoma. 9. Cerebrovascular disease, status post cerebrovascular accident. 10. Dysphagia. 11. Right bundle-branch block. discharge planning to SNF in . Jasen Steward MD Jun 12, 2020 19:45
[2020-06-12 20:00] VITALS: BP 102/56
[2020-06-12] MEDS: Dyna-Hex 2% Top Sol 2oz TOPIC SCH (20:41)
[2020-06-13] VITALS (7 sets, daily range): BP systolic 93–148; BP diastolic 54–67
--- NOTE | 2020-06-13 00:10 | NUR ---
NURSE NOTES: pt vital signs stable at this time. drainage on dressing surrounding g tube insertion still clean dry and intact, minimal drainage. zinc oxide cream applied to area earlier. condom cath still on and draining. no acute distress noted. no s/s of pain observed.
--- NOTE | 2020-06-13 05:08 | NUR ---
NURSE NOTES: pt cleaned, gown changed, linen and chucks changed. Blood pressure now stable.
--- NOTE | 2020-06-13 06:43 | NUR ---
NURSE HAND-OFF: Important Events on Shift:CAMILLA Patient Status: stable Diet: tube feeding Pending Orders: NA Pending Results/Labs:NA Pending notification:NA Latest Vital Signs: Temperature 98.8 , Pulse 94 , B/P 123 /58 , Respiratory Rate 19 , O2 SAT 93 , Room Air, O2 Flow Rate . Vital Sign Comment: stable through the shift Latest Santillan Fall Score: 70 Fall Risk: High Risk Safety Measures: Call light Within Reach, Bed Alarm Zone 1, Side Rails Side Rails x3, Bed position Low and Locked. Fall Precautions: Yellow Socks Yellow Gown Door Sign Patient Fall Education Addendum: 06/13/20 at 0742 by Vel Salazar RN report given to CATALINA Yost
--- NOTE | 2020-06-13 07:50 | NUR ---
NURSE NOTES: received pt and report from CATALINA Hinson. Pt alert and oriented x 1, nonverbal, with no acute s/s of distress and no s/s of pain at this time. Cnndom cath noted and draining. LUAN PICC line noted clean dry and intact and saline locked. Abdomen is distended. RN notified Dr. Berger. NO residuals for G-tubing. G-tube feeding stopped. Dressing for g-tube is clean dry and intact. Optifoam dressing on sacral and bilat heels clean dry and intact. plan of care discussed. Bed in lowest position and locked. Call light within reach. Bed alarm on. Will continue to monitor. Addendum: 06/13/20 at 1535 by Ramón Yost RN KUB is ordered and chestg xray is taken. Waiting for result. Addendum: 06/13/20 at 1553 by Ramón Yost RN Seizure precautions in place.
--- NOTE | 2020-06-13 08:52 | General Progress Note ---
Subjective ROS Limited/Unobtainable: No Allergies: Coded Allergies: SULFA (SULFONAMIDE ANTIBIOTICS) (Verified Allergy, Unknown, 09/02/15) Objective Last 24 Hour Vital Signs Date Time Temp Pulse Resp B/P (MAP) Pulse Ox O2 Delivery O2 Flow Rate FiO2 06/13/20 05:08 123/58 (79) 06/13/20 04:00 98.8 94 19 93/57 (69) 93 06/13/20 00:00 99.7 94 20 107/54 (71) 93 06/12/20 21:00 Room Air 06/12/20 20:00 97.9 100 17 102/56 (71) 98 06/12/20 16:00 97.8 92 20 110/69 (83) 99 06/12/20 12:00 98.1 105 20 121/86 (98) 92 06/12/20 09:00 Room Air Intake and Output 06/12/20 06/13/20 19:00 07:00 Intake Total 805 ml Output Total 1000 ml 300 ml Balance -195 ml -300 ml Free Water 200 ml Tube Feeding 605 ml Output Urine Total 1000 ml 300 ml # Voids 1 # Bowel Movements 1 Height (Feet): 5 Height (Inches): 4.00 Weight (Pounds): 133 General Appearance: no apparent distress EENT: normal ENT inspection Neck: supple Cardiovascular: normal rate Respiratory/Chest: decreased breath sounds Abdomen: normal bowel sounds, non tender, soft Extremities: non-tender Assessment/Plan Assessment/Plan: 1. Down syndrome. 2. CHF. 3. Dysphagia with G-tube. 4. History of constipation. GTF GT care talib GT care Chapin Mcintyre MD Jun 13, 2020 08:52
[2020-06-13] MEDS: levETIRAcetam 500mg/NS100ml 100 ML IVPB SCH ×2 (09:57→20:06)
[2020-06-13] MEDS: Zinc Oxide Oint 2oz TOPIC SCH ×3 (09:57→18:37)
--- NOTE | 2020-06-13 13:30 | NUR ---
NURSE NOTES: Patient's O2 satting at 92%. RN notified Dr. Steward and received order to titrate NC to keep above 92% and x-ray to check if he is having fluid overload. RN verified the orders one by one and carried out. Will continue to monitor.
--- NOTE | 2020-06-13 14:32 | NUR ---
DISCHARGE DISPOSITION: PLEASE READ PATIENT TO BE DISCHARGED TO [facility] [address] [facility] ROOM 18 T: [phone]>>> CALL FOR REPORT [facility] ETA [address]
--- NOTE | 2020-06-13 15:14 | Diagnostic Imaging Report ---
EXAM: XR Abdomen, 2 Views CLINICAL HISTORY: ABD PAIN TECHNIQUE: Frontal view of the abdomen/pelvis with upright view of the abdomen. COMPARISON: Abdominal radiograph on 06/09/2020 FINDINGS: Hardware: G-tube projected over the left upper quadrant. Abdomen: Nonobstructive bowel gas pattern. No free air. Bones: Scoliosis. Degenerative changes of the spine. Soft tissues: Normal. Other: Presumed phleboliths in the pelvis. IMPRESSION: Nonobstructive bowel gas pattern.
--- NOTE | 2020-06-13 15:19 | Surgery Progress Note ---
Surgery Progress Note Subjective Symptoms: improved Additional Comments tolerating diet kub noted d/c planning cont local wound care Objective Last 24 Hour Vital Signs Date Time Temp Pulse Resp B/P (MAP) Pulse Ox O2 Delivery O2 Flow Rate FiO2 06/13/20 12:00 98.1 105 19 104/66 (79) 92 06/13/20 09:00 Room Air 06/13/20 08:00 97.9 104 19 148/60 (89) 94 06/13/20 05:08 123/58 (79) 06/13/20 04:00 98.8 94 19 93/57 (69) 93 06/13/20 00:00 99.7 94 20 107/54 (71) 93 06/12/20 21:00 Room Air 06/12/20 20:00 97.9 100 17 102/56 (71) 98 06/12/20 16:00 97.8 92 20 110/69 (83) 99 I&O Intake and Output 06/12/20 06/13/20 19:00 07:00 Intake Total 805 ml Output Total 1000 ml 300 ml Balance -195 ml -300 ml Free Water 200 ml Tube Feeding 605 ml Output Urine Total 1000 ml 300 ml # Voids 1 # Bowel Movements 1 Dressing: dry Wound: clean Cardiovascular: RSR Respiratory: clear Abdomen: soft, non-tender, present bowel sounds, other Extremities: no tenderness, no cyanosis Plan Problems: (1) Malfunction of gastrostomy tube Assessment & Plan: 69-year-old male with recent traumatic G-tube insertion identified bleeding at the time since now hemostatic. G-tube reinserted by emergency department check by GI appropriate placement identified. KUB noted. Periwound maceration identified zinc oxide applied. Local wound care will be continued. Okay to use feeding tube at this time. Will follow with recommendations thank you DAILY ESTIMATED NEEDS: Needs based on Pulmonary, wound, wt loss 48.6kg 30-35 kcals/kg 6267-1162 total kcals 1.25-1.5 g protein/kg 61-73 g total protein 25-30 mL/kg 9973-9501 total fluid mLs NUTRITION DIAGNOSIS: Difficulty swallowing r/t dysphagia as evidenced by pt is PEG dep for all nutritional needs. 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 multiple small blotchy areas. area of resolving wound noted cephalad. Incontinence associated dermatitis perineal area and buttocks, erythema noted. Intact serous blister noted to posterior L tibia,surrounding skin is pink and intact. Stable brown eschar noted to L heel(L)0.7cm x (W)0.9cm.Periwound without erythema or fluctuance. R heel boggy but blanchable.Diffused red rash noted to bilat lower ext. No other areas of skin concerns noted. Tx.Plan: Apply Triad to Buttocks and groin areas with each perineal care. Apply Cavilon Skin barrier to both heels .Off-load heels with pillow. Reposition at least every 2hours or as tolerated. Support surface mattress. Joselito Dorman Jun 13, 2020 15:19
--- NOTE | 2020-06-13 16:29 | Diagnostic Imaging Report ---
EXAM: XR Chest, 1 View CLINICAL HISTORY: PLEFF TECHNIQUE: Frontal view of the chest. COMPARISON: Chest radiograph On 05/29/2018 FINDINGS: Hardware: Right-sided PICC line terminates in the region of the right axilla. Nonspecific thin linear density in the right hilar region. Lungs/pleura: Interstitial opacities most prominent in the perihilar regions. Probable small left pleural effusion. Heart/mediastinum: Stable mild enlargement of the cardiac silhouette. Soft tissues: Unremarkable. Bones: No acute fracture. Upper abdomen: Normal. IMPRESSION: 1. Interstitial opacities most prominent in the perihilar regions which may represent pulmonary vasculature congestion/edema. Probable small left pleural effusion. 2. Right-sided PICC line terminates in the region of the right axilla. Nonspecific thin linear density in the right hilar region. Question abandoned catheter fragment versus external artifact.
[2020-06-13] MEDS ORDERED: Albuterol/Ipratropium 3ml neb HHN PRN (17:09)
--- NOTE | 2020-06-13 18:49 | NUR ---
NURSE NOTES: Patient's bowel sounds are hypoactive on all quadrants. No residuals, no vomiting or diarrhea. G-tubing on at 55ml/hr. Will continue to monitor.
--- NOTE | 2020-06-13 18:58 | NUR ---
NURSE NOTES: RN notified Dr. Steward of xray result:Interstitial opacities most prominent in the perihilar regions, Probable small left pleural effusion. 2. Question abandoned catheter fragment versus external artifact. No further orders at this time.
--- NOTE | 2020-06-13 19:31 | Internal Med Progress Note ---
Subjective Date of Service: Jun 13, 2020 Physician Name Amor Berg Attending Physician Jasen Steward MD Current Medications Medications (Trade) Dose Ordered Sig/Eddy Route PRN Reason Start Time Stop Time Status Last Admin Dose Admin Acetaminophen (Tylenol) 650 mg Q6H PRN RECTAL Temp >100.5/Mild Pain (1-3) 06/09/20 08:00 07/09/20 07:59 Albuterol/ Ipratropium (Albuterol/ Ipratropium) 3 ml Q4H PRN HHN Shortness of Breath 06/13/20 17:09 06/18/20 17:08 Chlorhexidine Gluconate (Tesha-Hex 2%) 1 applic BEDTIME TOPIC 06/09/20 21:00 09/07/20 20:59 06/12/20 20:41 Levetiracetam 100 ml @ 400 mls/hr Q12HR IVPB 06/09/20 09:30 09/07/20 09:29 06/13/20 09:57 Levothyroxine Sodium (Synthroid) 88 mcg DAILY@0630 GT 06/09/20 09:00 07/09/20 08:59 06/13/20 06:03 Zinc Oxide (Zinc Oxide) 1 applic THREE TIMES A DAY TOPIC 06/09/20 10:00 09/07/20 09:59 06/13/20 18:37 Allergies: Coded Allergies: SULFA (SULFONAMIDE ANTIBIOTICS) (Verified Allergy, Unknown, 09/02/15) ROS Limited/Unobtainable: Yes Subjective 69 YO M with history of Down's syndrome and dysphagia admitted with G-tube malfunction. S/P G-tube replaced in ER. Cover for Int Med-Dr Steward Objective Last Vital Signs Date Time Temp Pulse Resp B/P (MAP) Pulse Ox O2 Delivery O2 Flow Rate FiO2 06/13/20 16:00 99.0 104 19 101/67 (78) 95 06/13/20 09:00 Room Air Intake and Output 06/12/20 06/13/20 19:00 07:00 Intake Total 805 ml Output Total 1000 ml 300 ml Balance -195 ml -300 ml Free Water 200 ml Tube Feeding 605 ml Output Urine Total 1000 ml 300 ml # Voids 1 # Bowel Movements 1 Objective PHYSICAL EXAMINATION: GENERAL: Patient is well-developed, well-nourished male, in no apparent distress. HEENT: Eyes, pupils are equal and responsive to light and accommodation. Extraocular movements are intact. NECK: Supple. No lymphadenopathy. CHEST: Lungs are clear to auscultation bilaterally without wheezes or rales. CARDIOVASCULAR: Regular rhythm and rate. S1, S2 are normal without murmurs, rubs, or gallops. ABDOMEN: Soft, nontender, nondistended. Positive bowel sounds. No evidence of hepatosplenomegaly. Currently, no rebound or guarding noted. EXTREMITIES: Negative for clubbing, cyanosis, or edema. RECTAL/GENITAL: Not performed. NEUROLOGIC: Cranial nerves II through XII grossly intact without focal deficits. Assessment/Plan Assessment/Plan ASSESSMENT: This is a 69-year-old male. 1. Gastrostomy tube malfunction. 2. Down syndrome. 3. Congestive heart failure. 4. Mental retardation. 5. Chronic subdural hematoma. 6. Cerebrovascular disease, status post cerebrovascular accident. 7. Dysphagia. 8. Right bundle-branch block. 9. Hypertension. 10. Seizure disorder. 11. Hypercholesterolemia. TREATMENT: 1. Malfunction of gastrostomy tube. S/P G-tube replaced in emerg room on 06/09/20. A Gastroenterology consultation= Dr. Chapin Berger. Follow recommendations of Gastroenterology. Tube feedings have been restarted 2. Hypertension. Continue metoprolol as above. 3. Seizure disorder. Continue Keppra as above. 4. Hypercholesterolemia. Continue atorvastatin as above. 5. Down syndrome. 6. Congestive heart failure. 7. Mental retardation. 8. Chronic subdural hematoma. 9. Cerebrovascular disease, status post cerebrovascular accident. 10. Dysphagia. 11. Right bundle-branch block. Amor Berg MD Jun 13, 2020 19:31
--- NOTE | 2020-06-13 19:52 | NUR ---
NURSE HAND-OFF: Important Events on Shift:desatting to 92% Patient Status: stable Diet: g-tube feeding Pending Orders: n/a Pending Results/Labs:n/a Pending MD notification:n/a Latest Vital Signs: Temperature 99.0 , Pulse 104 , B/P 101 /67 , Respiratory Rate 19 , O2 SAT 95 , Room Air, O2 Flow Rate . Vital Sign Comment: stable Latest Santillan Fall Score: 70 Fall Risk: High Risk Safety Measures: Call light Within Reach, Bed Alarm Zone 1, Side Rails Side Rails x3, Bed position Low and Locked. Fall Precautions: Yellow Socks Yellow Gown Door Sign Patient Fall Education Report given to Dar.
--- NOTE | 2020-06-13 19:59 | NUR ---
NURSE NOTES: The patient is awake and is on 3 liters of oxygen via NC well tolerated. He is non-compliance with his care but doesn't appear to be in any acute distress. The patient has a Gtube feeding of Vital Af 1.2 @ 55ml/hr well tolerated. Placement check was done and it is intact.The patient also has a right upper Arm PICC line that was bath with Tesha hex, dressing is patent and asymptomatic.The HOB is 45 degree angle. The bed in lowest level, call light within easy reach and siderails paddled and up x4. Will continue to monitor as indicated.
[2020-06-13] MEDS: Dyna-Hex 2% Top Sol 2oz TOPIC SCH (20:06)
[2020-06-14] VITALS: BP 101/55
[2020-06-14 04:00] VITALS: BP 98/59
--- NOTE | 2020-06-14 07:18 | NUR ---
NURSE HAND-OFF: Important Events on Shift:Awake and Aphasic Patient Status: Diet: Pending Orders: Pending Results/Labs: Pending MD notification: Latest Vital Signs: Temperature 98.4 , Pulse 106 , B/P 98 /59 , Respiratory Rate 20 , O2 SAT 95 , Room Air, O2 Flow Rate . Vital Sign Comment: Latest Santillan Fall Score: 70 Fall Risk: High Risk Safety Measures: Call light Within Reach, Bed Alarm Zone 1, Side Rails Side Rails x3, Bed position Low and Locked. Fall Precautions: Yellow Socks Yellow Gown Door Sign Patient Fall Education Report given to .
--- NOTE | 2020-06-14 07:24 | General Progress Note ---
Subjective ROS Limited/Unobtainable: No Allergies: Coded Allergies: SULFA (SULFONAMIDE ANTIBIOTICS) (Verified Allergy, Unknown, 09/02/15) Objective Last 24 Hour Vital Signs Date Time Temp Pulse Resp B/P (MAP) Pulse Ox O2 Delivery O2 Flow Rate FiO2 06/14/20 04:00 98.4 106 20 98/59 (72) 95 06/14/20 00:00 99.2 105 19 101/55 (70) 95 06/13/20 21:00 Room Air 06/13/20 20:00 99.0 102 20 114/54 (74) 95 06/13/20 16:00 99.0 104 19 101/67 (78) 95 06/13/20 12:00 98.1 105 19 104/66 (79) 92 06/13/20 09:00 Room Air 06/13/20 08:00 97.9 104 19 148/60 (89) 94 Intake and Output 06/13/20 06/14/20 19:00 07:00 Intake Total 255 ml 805 ml Output Total 600 ml 2000 ml Balance -345 ml -1195 ml Free Water 100 ml 200 ml IV Total 100 ml Tube Feeding 55 ml 605 ml Output Urine Total 600 ml 2000 ml # Voids 2 # Bowel Movements 1 Height (Feet): 5 Height (Inches): 4.00 Weight (Pounds): 133 General Appearance: no apparent distress EENT: normal ENT inspection Neck: supple Cardiovascular: normal rate Respiratory/Chest: decreased breath sounds Abdomen: normal bowel sounds, non tender, soft Extremities: non-tender Assessment/Plan Assessment/Plan: 1. Down syndrome. 2. CHF. 3. Dysphagia with G-tube. 4. History of constipation. GTF GT care talib GT care Chapin Mcintyre MD Jun 14, 2020 07:23
--- NOTE | 2020-06-14 07:30 | NUR ---
NURSE NOTES: RN received pt and report from CATALINA Dodge. Pt alert and oriented x 1, nonverbal, on 3 L of O2, and no s/s of pain at this time. Condom cath noted and draining. LUAN PICC line noted clean dry and intact and saline locked. Dressing for g-tube is clean dry and intact. Optifoam dressing on sacral and bilat heels clean dry and intact. plan of care discussed. Bed in lowest position and locked. Call light within reach. Bed alarm on. Will continue to monitor.
[2020-06-14 08:00] VITALS: BP 96/56
[2020-06-14 09:14] LABS: HEMATOCRIT 38.4 % (42.0-52.0); HEMOGLOBIN 12.6 G/DL (14.2-18.0); MEAN CORPUSCULAR VOLUME 102 FL (80-99); PLATELET COUNT 188 K/UL (150-450); RED BLOOD COUNT 3.75 M/UL (4.70-6.10); RED CELL DISTRIBUTION WIDTH 13.9 % (11.6-14.8); WHITE BLOOD COUNT 10.1 K/UL (4.8-10.8)
[2020-06-14] MEDS: levETIRAcetam 500mg/NS100ml 100 ML IVPB SCH ×2 (09:27→20:17)
[2020-06-14] MEDS: Zinc Oxide Oint 2oz TOPIC SCH ×3 (09:28→18:03)
[2020-06-14 09:31] LABS: ANION GAP 7 mmol/L (5-15); BLOOD UREA NITROGEN 28 mg/dL (7-18); CALCIUM 8.5 MG/DL (8.5-10.1); CARBON DIOXIDE 31 MMOL/L (21-32); CHLORIDE 103 MMOL/L (98-107); CREATININE 1.1 MG/DL (0.55-1.30); POTASSIUM 4.1 MMOL/L (3.5-5.1); SODIUM 141 MMOL/L (136-145)
--- NOTE | 2020-06-14 11:32 | NUR ---
RESPIRATORY NOTE: Assessed pt for indications of HHN tx per request by RN. Pt on 3L NC spo2 98%. RR 18. B/S clear no audible wheezing noted at this time. PRN tx not indicated at this time. RN Ramón aware. Will continue to closely monitor and follow plan of care.
[2020-06-14 12:00] VITALS: BP 96/58
--- NOTE | 2020-06-14 13:23 | Surgery Progress Note ---
Surgery Progress Note Subjective Additional Comments Patient seen and examined bedside. Doing well. G-tube site improving. Tolerating tube feeds. New tube functioning well. No nausea vomiting fever chills labs noted imaging reviewed Objective Last 24 Hour Vital Signs Date Time Temp Pulse Resp B/P (MAP) Pulse Ox O2 Delivery O2 Flow Rate FiO2 06/14/20 08:00 107 18 98 Nasal Cannula 3.0 32 06/14/20 08:00 98.4 101 19 96/56 (69) 96 06/14/20 04:00 98.4 106 20 98/59 (72) 95 06/14/20 00:00 99.2 105 19 101/55 (70) 95 06/13/20 21:00 Room Air 06/13/20 20:00 99.0 102 20 114/54 (74) 95 06/13/20 16:00 99.0 104 19 101/67 (78) 95 I&O Intake and Output 06/13/20 06/14/20 19:00 07:00 Intake Total 255 ml 805 ml Output Total 600 ml 2000 ml Balance -345 ml -1195 ml Free Water 100 ml 200 ml IV Total 100 ml Tube Feeding 55 ml 605 ml Output Urine Total 600 ml 2000 ml # Voids 2 # Bowel Movements 1 Dressing: dry Wound: clean Cardiovascular: RSR Respiratory: clear, decreased breath sounds Abdomen: soft, non-tender, present bowel sounds, other, non-distended Extremities: no edema, no tenderness, no cyanosis Laboratory Tests Test 06/14/20 08:20 White Blood Count 10.1 K/UL (4.8-10.8) Red Blood Count 3.75 M/UL (4.70-6.10) L Hemoglobin 12.6 G/DL (14.2-18.0) L Hematocrit 38.4 % (42.0-52.0) L Mean Corpuscular Volume 102 FL (80-99) H Mean Corpuscular Hemoglobin 33.5 PG (27.0-31.0) H Mean Corpuscular Hemoglobin Concent 32.7 G/DL (32.0-36.0) Red Cell Distribution Width 13.9 % (11.6-14.8) Platelet Count 188 K/UL (150-450) Mean Platelet Volume 8.6 FL (6.5-10.1) Neutrophils (%) (Auto) % (45.0-75.0) Lymphocytes (%) (Auto) % (20.0-45.0) Monocytes (%) (Auto) % (1.0-10.0) Eosinophils (%) (Auto) % (0.0-3.0) Basophils (%) (Auto) % (0.0-2.0) Differential Total Cells Counted 100 Neutrophils % (Manual) 80 % (45-75) H Lymphocytes % (Manual) 10 % (20-45) L Monocytes % (Manual) 5 % (1-10) Eosinophils % (Manual) 0 % (0-3) Basophils % (Manual) 0 % (0-2) Band Neutrophils 5 % (0-8) Platelet Estimate Adequate Platelet Morphology Normal Macrocytosis 1+ Sodium Level 141 MMOL/L (136-145) Potassium Level 4.1 MMOL/L (3.5-5.1) Chloride Level 103 MMOL/L (98-107) Carbon Dioxide Level 31 MMOL/L (21-32) Anion Gap 7 mmol/L (5-15) Blood Urea Nitrogen 28 mg/dL (7-18) H Creatinine 1.1 MG/DL (0.55-1.30) Estimat Glomerular Filtration Rate > 60 mL/min (>60) Glucose Level 144 MG/DL (74-106) H Calcium Level 8.5 MG/DL (8.5-10.1) Plan Problems: (1) Malfunction of gastrostomy tube Assessment & Plan: 69-year-old male with recent traumatic G-tube insertion identified bleeding at the time since now hemostatic. G-tube reinserted by emergency department check by GI appropriate placement identified. KUB noted. Periwound maceration identified zinc oxide applied. Local wound care will be continued. Okay to use feeding tube at this time. Will follow with recommendations thank you DAILY ESTIMATED NEEDS: Needs based on Pulmonary, wound, wt loss 48.6kg 30-35 kcals/kg 5943-5978 total kcals 1.25-1.5 g protein/kg 61-73 g total protein 25-30 mL/kg 4527-8073 total fluid mLs NUTRITION DIAGNOSIS: Difficulty swallowing r/t dysphagia as evidenced by pt is PEG dep for all nutritional needs. 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 multiple small blotchy areas. area of resolving wound noted cephalad. Incontinence associated dermatitis perineal area and buttocks, erythema noted. Intact serous blister noted to posterior L tibia,surrounding skin is pink and intact. Stable brown eschar noted to L heel(L)0.7cm x (W)0.9cm.Periwound without erythema or fluctuance. R heel boggy but blanchable.Diffused red rash noted to bilat lower ext. No other areas of skin concerns noted. Tx.Plan: Apply Triad to Buttocks and groin areas with each perineal care. Apply Cavilon Skin barrier to both heels .Off-load heels with pillow. Reposition at least every 2hours or as tolerated. Support surface mattress. Joselito Dorman Jun 14, 2020 13:23
--- NOTE | 2020-06-14 15:51 | Internal Med Progress Note ---
Subjective Date of Service: Jun 14, 2020 Physician Name Amor Berg Attending Physician Jasen Steward MD Current Medications Medications (Trade) Dose Ordered Sig/Eddy Route PRN Reason Start Time Stop Time Status Last Admin Dose Admin Acetaminophen (Tylenol) 650 mg Q6H PRN RECTAL Temp >100.5/Mild Pain (1-3) 06/09/20 08:00 07/09/20 07:59 Albuterol/ Ipratropium (Albuterol/ Ipratropium) 3 ml Q4H PRN HHN Shortness of Breath 06/13/20 17:09 06/18/20 17:08 Chlorhexidine Gluconate (Tesha-Hex 2%) 1 applic BEDTIME TOPIC 06/09/20 21:00 09/07/20 20:59 06/13/20 20:06 Levetiracetam 100 ml @ 400 mls/hr Q12HR IVPB 06/09/20 09:30 09/07/20 09:29 06/14/20 09:27 Levothyroxine Sodium (Synthroid) 88 mcg DAILY@0630 GT 06/09/20 09:00 07/09/20 08:59 06/14/20 05:49 Zinc Oxide (Zinc Oxide) 1 applic THREE TIMES A DAY TOPIC 06/09/20 10:00 09/07/20 09:59 06/14/20 14:27 Allergies: Coded Allergies: SULFA (SULFONAMIDE ANTIBIOTICS) (Verified Allergy, Unknown, 09/02/15) ROS Limited/Unobtainable: Yes Subjective 69 YO M with history of Down's syndrome and dysphagia admitted with G-tube malfunction. S/P G-tube replaced in ER. Cover for Int Med-Dr Steward Objective Last Vital Signs Date Time Temp Pulse Resp B/P (MAP) Pulse Ox O2 Delivery O2 Flow Rate FiO2 06/14/20 12:00 98.1 90 18 96/58 (71) 98 06/14/20 08:00 Nasal Cannula 3.0 32 Laboratory Tests Test 06/14/20 08:20 White Blood Count 10.1 K/UL (4.8-10.8) Red Blood Count 3.75 M/UL (4.70-6.10) L Hemoglobin 12.6 G/DL (14.2-18.0) L Hematocrit 38.4 % (42.0-52.0) L Mean Corpuscular Volume 102 FL (80-99) H Mean Corpuscular Hemoglobin 33.5 PG (27.0-31.0) H Mean Corpuscular Hemoglobin Concent 32.7 G/DL (32.0-36.0) Red Cell Distribution Width 13.9 % (11.6-14.8) Platelet Count 188 K/UL (150-450) Mean Platelet Volume 8.6 FL (6.5-10.1) Neutrophils (%) (Auto) % (45.0-75.0) Lymphocytes (%) (Auto) % (20.0-45.0) Monocytes (%) (Auto) % (1.0-10.0) Eosinophils (%) (Auto) % (0.0-3.0) Basophils (%) (Auto) % (0.0-2.0) Differential Total Cells Counted 100 Neutrophils % (Manual) 80 % (45-75) H Lymphocytes % (Manual) 10 % (20-45) L Monocytes % (Manual) 5 % (1-10) Eosinophils % (Manual) 0 % (0-3) Basophils % (Manual) 0 % (0-2) Band Neutrophils 5 % (0-8) Platelet Estimate Adequate Platelet Morphology Normal Macrocytosis 1+ Sodium Level 141 MMOL/L (136-145) Potassium Level 4.1 MMOL/L (3.5-5.1) Chloride Level 103 MMOL/L (98-107) Carbon Dioxide Level 31 MMOL/L (21-32) Anion Gap 7 mmol/L (5-15) Blood Urea Nitrogen 28 mg/dL (7-18) H Creatinine 1.1 MG/DL (0.55-1.30) Estimat Glomerular Filtration Rate > 60 mL/min (>60) Glucose Level 144 MG/DL (74-106) H Calcium Level 8.5 MG/DL (8.5-10.1) Intake and Output 06/13/20 06/14/20 19:00 07:00 Intake Total 255 ml 805 ml Output Total 600 ml 2000 ml Balance -345 ml -1195 ml Free Water 100 ml 200 ml IV Total 100 ml Tube Feeding 55 ml 605 ml Output Urine Total 600 ml 2000 ml # Voids 2 # Bowel Movements 1 Objective PHYSICAL EXAMINATION: GENERAL: Patient is well-developed, well-nourished male, in no apparent distress. HEENT: Eyes, pupils are equal and responsive to light and accommodation. Extraocular movements are intact. NECK: Supple. No lymphadenopathy. CHEST: Lungs are clear to auscultation bilaterally without wheezes or rales. CARDIOVASCULAR: Regular rhythm and rate. S1, S2 are normal without murmurs, rubs, or gallops. ABDOMEN: Soft, nontender, nondistended. Positive bowel sounds. No evidence of hepatosplenomegaly. Currently, no rebound or guarding noted. EXTREMITIES: Negative for clubbing, cyanosis, or edema. RECTAL/GENITAL: Not performed. NEUROLOGIC: Cranial nerves II through XII grossly intact without focal deficits. Assessment/Plan Assessment/Plan ASSESSMENT: This is a 69-year-old male. 1. Gastrostomy tube malfunction. 2. Down syndrome. 3. Congestive heart failure. 4. Mental retardation. 5. Chronic subdural hematoma. 6. Cerebrovascular disease, status post cerebrovascular accident. 7. Dysphagia. 8. Right bundle-branch block. 9. Hypertension. 10. Seizure disorder. 11. Hypercholesterolemia. TREATMENT: 1. Malfunction of gastrostomy tube. S/P G-tube replaced in emerg room on 06/09/20. A Gastroenterology consultation= Dr. Chapin Berger. Follow recommendations of Gastroenterology. Tube feedings have been restarted 2. Hypertension. Continue metoprolol as above. 3. Seizure disorder. Continue Keppra as above. 4. Hypercholesterolemia. Continue atorvastatin as above. 5. Down syndrome. 6. Congestive heart failure. 7. Mental retardation. 8. Chronic subdural hematoma. 9. Cerebrovascular disease, status post cerebrovascular accident. 10. Dysphagia. 11. Right bundle-branch block. Amor Berg MD Jun 14, 2020 15:51
[2020-06-14 16:00] VITALS: BP 105/69
--- NOTE | 2020-06-14 19:25 | NUR ---
NURSE NOTES: Received report from CATALINA Melgar. Pt is in bed, non-verbal. Side rails up x3, call light within reach, bed locked and in lowest position. Tube feeding running well. PICC in [facility]. Will continue to monitor.
--- NOTE | 2020-06-14 19:57 | NUR ---
NURSE HAND-OFF: Important Events on Shift:3L of O2 Patient Status: stable Diet: tube feeding Pending Orders: n/a Pending Results/Labs:n/a Pending MD notification:n/a Latest Vital Signs: Temperature 98.1 , Pulse 113 , B/P 105 /69 , Respiratory Rate 18 , O2 SAT 95 , Room Air, O2 Flow Rate 3.0 . Vital Sign Comment: stable Latest Santillan Fall Score: 70 Fall Risk: High Risk Safety Measures: Call light Within Reach, Bed Alarm Zone 1, Side Rails Side Rails x3, Bed position Low and Locked. Fall Precautions: Yellow Socks Yellow Gown Door Sign Patient Fall Education Report given to
[2020-06-14 20:00] VITALS: BP 121/51
[2020-06-14] MEDS: Dyna-Hex 2% Top Sol 2oz TOPIC SCH (20:17)
[2020-06-14] MEDS: Acetaminophen 650 MG SUPP RECTAL PRN (21:31)
[2020-06-15] VITALS: BP 100/51
[2020-06-15 04:00] VITALS: BP 123/62
--- NOTE | 2020-06-15 06:38 | General Progress Note ---
Subjective ROS Limited/Unobtainable: No Allergies: Coded Allergies: SULFA (SULFONAMIDE ANTIBIOTICS) (Verified Allergy, Unknown, 09/02/15) Objective Last 24 Hour Vital Signs Date Time Temp Pulse Resp B/P (MAP) Pulse Ox O2 Delivery O2 Flow Rate FiO2 06/15/20 04:00 98.1 114 20 123/62 (82) 97 06/15/20 00:00 97.7 115 17 100/51 (67) 95 06/14/20 22:01 99.4 06/14/20 21:00 Room Air 06/14/20 20:00 100.5 120 20 121/51 (74) 96 06/14/20 19:14 113 18 95 Nasal Cannula 3.0 32 06/14/20 16:00 98.1 102 19 105/69 (81) 100 06/14/20 12:00 98.1 90 18 96/58 (71) 98 06/14/20 09:00 Room Air 06/14/20 08:00 107 18 98 Nasal Cannula 3.0 32 06/14/20 08:00 98.4 101 19 96/56 (69) 96 Intake and Output 06/14/20 06/15/20 19:00 07:00 Intake Total 100 ml Output Total 200 ml 400 ml Balance -100 ml -400 ml IV Total 100 ml Output Urine Total 200 ml 400 ml # Voids 1 Laboratory Tests 06/14/20 08:20: White Blood Count 10.1, Red Blood Count 3.75L, Hemoglobin 12.6L, Hematocrit 38.4L, Mean Corpuscular Volume 102H, Mean Corpuscular Hemoglobin 33.5H, Mean Corpuscular Hemoglobin Concent 32.7, Red Cell Distribution Width 13.9, Platelet Count 188, Mean Platelet Volume 8.6, Neutrophils (%) (Auto) , Lymphocytes (%) (Auto) , Monocytes (%) (Auto) , Eosinophils (%) (Auto) , Basophils (%) (Auto) , Differential Total Cells Counted 100, Neutrophils % (Manual) 80H, Lymphocytes % (Manual) 10L, Monocytes % (Manual) 5, Eosinophils % (Manual) 0, Basophils % (Manual) 0, Band Neutrophils 5, Platelet Estimate Adequate, Platelet Morphology Normal, Macrocytosis 1+, Sodium Level 141, Potassium Level 4.1, Chloride Level 103, Carbon Dioxide Level 31, Anion Gap 7, Blood Urea Nitrogen 28H, Creatinine 1.1, Estimat Glomerular Filtration Rate > 60, Glucose Level 144H, Calcium Level 8.5 Height (Feet): 5 Height (Inches): 4.00 Weight (Pounds): 133 General Appearance: no apparent distress EENT: normal ENT inspection Neck: supple Cardiovascular: normal rate Respiratory/Chest: decreased breath sounds Abdomen: normal bowel sounds, non tender, soft Extremities: non-tender Assessment/Plan Assessment/Plan: 1. Down syndrome. 2. CHF. 3. Dysphagia with G-tube. 4. History of constipation. GTF GT care talib GT care Chapin Berger MD Jun 15, 2020 06:38
--- NOTE | 2020-06-15 07:20 | NUR ---
NURSE HAND-OFF: Important Events on Shift: Fever 100.5 Patient Status: sleeping Diet: vital af 1.2 @ 55ml/hr Pending Orders: Pending Results/Labs: Pending MD notification: Latest Vital Signs: Temperature 98.1 , Pulse 114 , B/P 123 /62 , Respiratory Rate 20 , O2 SAT 97 , Room Air, O2 Flow Rate 3.0 . Vital Sign Comment: VSS Latest Santillan Fall Score: 70 Fall Risk: High Risk Safety Measures: Call light Within Reach, Bed Alarm Zone 1, Side Rails Side Rails x3, Bed position Low and Locked. Fall Precautions: Yellow Socks Yellow Gown Door Sign Patient Fall Education Report given to CATALINA Grajeda.
--- NOTE | 2020-06-15 07:36 | NUR ---
NURSE NOTES: Report received from Figueroa ARNOLD. Patient seen on rounds, GCS 7 (E2, M4, V1), FLACC 0. On O2 at 3lpm with no signs of distress. Seizure precautions on. PICC on right upper arm patent and intact with no signs of infiltration. GT patent and infusing Jamey AF @ 55ml/hr, no residuals noted overnight, HOB at 45 degrees. Condom cath secured and draining. Bed low and locked, siderails up x2 and padded, zone alarms on 1. Will continue with plan of care.
[2020-06-15 08:00] VITALS: BP 100/54
[2020-06-15] MEDS: Zinc Oxide Oint 2oz TOPIC SCH ×3 (09:00→17:09)
[2020-06-15 09:13] LABS: HEMATOCRIT 38.4 % (42.0-52.0); HEMOGLOBIN 12.3 G/DL (14.2-18.0); MEAN CORPUSCULAR VOLUME 103 FL (80-99); PLATELET COUNT 150 K/UL (150-450); RED BLOOD COUNT 3.73 M/UL (4.70-6.10); RED CELL DISTRIBUTION WIDTH 14.2 % (11.6-14.8); WHITE BLOOD COUNT 11.9 K/UL (4.8-10.8)
[2020-06-15 09:39] LABS: ALANINE AMINOTRANSFERASE 18 U/L (12-78); ALBUMIN 2.2 G/DL (3.4-5.0); ALBUMIN/GLOBULIN RATIO 0.4 (1.0-2.7); ALKALINE PHOSPHATASE 92 U/L (46-116); ANION GAP 8 mmol/L (5-15); ASPARTATE AMINO TRANSFERASE 28 U/L (15-37); BILIRUBIN,TOTAL 0.4 MG/DL (0.2-1.0); BLOOD UREA NITROGEN 27 mg/dL (7-18); CALCIUM 8.3 MG/DL (8.5-10.1); CARBON DIOXIDE 28 MMOL/L (21-32); CHLORIDE 107 MMOL/L (98-107); POTASSIUM 3.9 MMOL/L (3.5-5.1); SODIUM 143 MMOL/L (136-145)
[2020-06-15] MEDS: levETIRAcetam 500mg/NS100ml 100 ML IVPB SCH ×2 (10:31→20:28)
--- NOTE | 2020-06-15 10:58 | NUR ---
NURSE NOTES: Dr. Steward notified of episodes of low grade fever last night and this am, also made aware of lab results and CXR from 06/13. Received orders to obtain covid PCR swab and hold discharge for now. Orders noted and carried out.
--- NOTE | 2020-06-15 11:17 | NUR ---
NURSE NOTES: Nasopharyngeal swab obtained from right nares and sent down to lab for COVID PCR.
[2020-06-15 12:00] VITALS: BP 102/67
[2020-06-15 16:00] VITALS: BP 104/69
--- NOTE | 2020-06-15 17:39 | NUR ---
NURSE NOTES:WOUND CARE FOLLOW-UP NOTES: GT exuding large amt sanguineous exudate with several small clots noted. Formula also noted to be mixed with sanguineous exudate. Peristomal skin is less erythematous in comparison to initial assessment. Peristomal skin is more pink and denuded. Discussed skin findings with and treatment amended to Zinc Oxide Paste with Calcium Alginate and Optifoam drsg Daily and prn. Tx.Plan: Wash Peristomal Gt with Soap and water. Saab dry. Apply Zinc Oxide Paste. Apply Maxsorb drsg. Cover with Optifoam drsg. Change Daily and prn.
--- NOTE | 2020-06-15 18:11 | Surgery Progress Note ---
Surgery Progress Note Subjective Additional Comments low grade fevers leukocytosis covid pending Objective Last 24 Hour Vital Signs Date Time Temp Pulse Resp B/P (MAP) Pulse Ox O2 Delivery O2 Flow Rate FiO2 06/15/20 16:00 97.9 114 22 104/69 (81) 94 06/15/20 13:11 Nasal Cannula 4.0 06/15/20 12:00 98.1 117 22 102/67 (79) 95 06/15/20 09:00 Nasal Cannula 6.0 06/15/20 08:00 100.4 118 22 100/54 (69) 96 06/15/20 04:00 98.1 114 20 123/62 (82) 97 06/15/20 00:00 97.7 115 17 100/51 (67) 95 06/14/20 22:01 99.4 06/14/20 21:00 Room Air 06/14/20 20:00 100.5 120 20 121/51 (74) 96 06/14/20 19:14 113 18 95 Nasal Cannula 3.0 32 I&O Intake and Output 06/14/20 06/15/20 19:00 07:00 Intake Total 100 ml 55 ml Output Total 200 ml 400 ml Balance -100 ml -345 ml IV Total 100 ml Tube Feeding 55 ml Output Urine Total 200 ml 400 ml # Voids 1 Dressing: saturated Cardiovascular: RSR Respiratory: decreased breath sounds Abdomen: soft, non-tender, present bowel sounds, other, non-distended Extremities: no tenderness, no cyanosis Laboratory Tests Test 06/15/20 08:40 White Blood Count 11.9 K/UL (4.8-10.8) H Red Blood Count 3.73 M/UL (4.70-6.10) L Hemoglobin 12.3 G/DL (14.2-18.0) L Hematocrit 38.4 % (42.0-52.0) L Mean Corpuscular Volume 103 FL (80-99) H Mean Corpuscular Hemoglobin 32.9 PG (27.0-31.0) H Mean Corpuscular Hemoglobin Concent 32.0 G/DL (32.0-36.0) Red Cell Distribution Width 14.2 % (11.6-14.8) Platelet Count 150 K/UL (150-450) Mean Platelet Volume 9.0 FL (6.5-10.1) Neutrophils (%) (Auto) % (45.0-75.0) Lymphocytes (%) (Auto) % (20.0-45.0) Monocytes (%) (Auto) % (1.0-10.0) Eosinophils (%) (Auto) % (0.0-3.0) Basophils (%) (Auto) % (0.0-2.0) Differential Total Cells Counted 100 Neutrophils % (Manual) 85 % (45-75) H Lymphocytes % (Manual) 7 % (20-45) L Monocytes % (Manual) 2 % (1-10) Eosinophils % (Manual) 0 % (0-3) Basophils % (Manual) 1 % (0-2) Band Neutrophils 5 % (0-8) Platelet Estimate Adequate Platelet Morphology Normal Polychromasia 1+ Anisocytosis 1+ Macrocytosis 1+ Sodium Level 143 MMOL/L (136-145) Potassium Level 3.9 MMOL/L (3.5-5.1) Chloride Level 107 MMOL/L (98-107) Carbon Dioxide Level 28 MMOL/L (21-32) Anion Gap 8 mmol/L (5-15) Blood Urea Nitrogen 27 mg/dL (7-18) H Creatinine 1.0 MG/DL (0.55-1.30) Estimat Glomerular Filtration Rate > 60 mL/min (>60) Glucose Level 185 MG/DL (74-106) H Calcium Level 8.3 MG/DL (8.5-10.1) L Total Bilirubin 0.4 MG/DL (0.2-1.0) Aspartate Amino Transf (AST/SGOT) 28 U/L (15-37) Alanine Aminotransferase (ALT/SGPT) 18 U/L (12-78) Alkaline Phosphatase 92 U/L (46-116) Total Protein 7.2 G/DL (6.4-8.2) Albumin 2.2 G/DL (3.4-5.0) L Globulin 5.0 g/dL Albumin/Globulin Ratio 0.4 (1.0-2.7) L Plan Problems: (1) Malfunction of gastrostomy tube Assessment & Plan: 69-year-old male with recent traumatic G-tube insertion identified bleeding at the time since now hemostatic. G-tube reinserted by emergency department check by GI appropriate placement identified. KUB noted. Periwound maceration identified zinc oxide applied. Local wound care will be continued. Okay to use feeding tube at this time. Will follow with recommendations thank you GT exuding large amt sanguineous exudate with several small clots noted. Formula also noted to be mixed with sanguineous exudate. Peristomal skin is less erythematous in comparison to initial assessment. Peristomal skin is more pink and denuded. Discussed skin findings with and treatment amended to Zinc Oxide Paste with Calcium Alginate and Optifoam drsg Daily and prn. Tx.Plan: Wash Peristomal Gt with Soap and water. Saab dry. Apply Zinc Oxide Paste. Apply Maxsorb drsg. Cover with Optifoam drsg. Change Daily and prn. DAILY ESTIMATED NEEDS: Needs based on Pulmonary, wound, wt loss 48.6kg 30-35 kcals/kg 2462-7100 total kcals 1.25-1.5 g protein/kg 61-73 g total protein 25-30 mL/kg 4681-6732 total fluid mLs NUTRITION DIAGNOSIS: Difficulty swallowing r/t dysphagia as evidenced by pt is PEG dep for all nutritional needs. 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 multiple small blotchy areas. area of resolving wound noted cephalad. Incontinence associated dermatitis perineal area and buttocks, erythema noted. Intact serous blister noted to posterior L tibia,surrounding skin is pink and intact. Stable brown eschar noted to L heel(L)0.7cm x (W)0.9cm.Periwound without erythema or fluctuance. R heel boggy but blanchable.Diffused red rash noted to bilat lower ext. No other areas of skin concerns noted. Tx.Plan: Apply Triad to Buttocks and groin areas with each perineal care. Apply Cavilon Skin barrier to both heels .Off-load heels with pillow. Reposition at least every 2hours or as tolerated. Support surface mattress. Joselito Dorman Jun 15, 2020 18:11
--- NOTE | 2020-06-15 19:00 | Internal Med Progress Note ---
Subjective Date of Service: Jun 15, 2020 Physician Name [facility] Attending Physician Jasen Steward MD Current Medications Medications (Trade) Dose Ordered Sig/Eddy Route PRN Reason Start Time Stop Time Status Last Admin Dose Admin Acetaminophen (Tylenol) 650 mg Q6H PRN RECTAL Temp >100.5/Mild Pain (1-3) 06/09/20 08:00 07/09/20 07:59 06/14/20 21:31 Albuterol/ Ipratropium (Albuterol/ Ipratropium) 3 ml Q4H PRN HHN Shortness of Breath 06/13/20 17:09 06/18/20 17:08 Chlorhexidine Gluconate (Tesha-Hex 2%) 1 applic BEDTIME TOPIC 06/09/20 21:00 09/07/20 20:59 06/14/20 20:17 Levetiracetam 100 ml @ 400 mls/hr Q12HR IVPB 06/09/20 09:30 09/07/20 09:29 06/15/20 10:31 Levothyroxine Sodium (Synthroid) 88 mcg DAILY@0630 GT 06/09/20 09:00 07/09/20 08:59 06/15/20 06:05 Zinc Oxide (Zinc Oxide) 1 applic THREE TIMES A DAY TOPIC 06/09/20 10:00 09/07/20 09:59 06/15/20 17:09 Allergies: Coded Allergies: SULFA (SULFONAMIDE ANTIBIOTICS) (Verified Allergy, Unknown, 09/02/15) ROS Limited/Unobtainable: Yes Subjective 69 YO M with history of Down's syndrome and dysphagia admitted with G-tube malfunction. S/P G-tube replaced in ER. Cover for Int Med-Dr Steward Objective Last Vital Signs Date Time Temp Pulse Resp B/P (MAP) Pulse Ox O2 Delivery O2 Flow Rate FiO2 06/15/20 16:00 97.9 114 22 104/69 (81) 94 06/15/20 13:11 Nasal Cannula 4.0 06/14/20 19:14 32 Laboratory Tests Test 06/15/20 08:40 White Blood Count 11.9 K/UL (4.8-10.8) H Red Blood Count 3.73 M/UL (4.70-6.10) L Hemoglobin 12.3 G/DL (14.2-18.0) L Hematocrit 38.4 % (42.0-52.0) L Mean Corpuscular Volume 103 FL (80-99) H Mean Corpuscular Hemoglobin 32.9 PG (27.0-31.0) H Mean Corpuscular Hemoglobin Concent 32.0 G/DL (32.0-36.0) Red Cell Distribution Width 14.2 % (11.6-14.8) Platelet Count 150 K/UL (150-450) Mean Platelet Volume 9.0 FL (6.5-10.1) Neutrophils (%) (Auto) % (45.0-75.0) Lymphocytes (%) (Auto) % (20.0-45.0) Monocytes (%) (Auto) % (1.0-10.0) Eosinophils (%) (Auto) % (0.0-3.0) Basophils (%) (Auto) % (0.0-2.0) Differential Total Cells Counted 100 Neutrophils % (Manual) 85 % (45-75) H Lymphocytes % (Manual) 7 % (20-45) L Monocytes % (Manual) 2 % (1-10) Eosinophils % (Manual) 0 % (0-3) Basophils % (Manual) 1 % (0-2) Band Neutrophils 5 % (0-8) Platelet Estimate Adequate Platelet Morphology Normal Polychromasia 1+ Anisocytosis 1+ Macrocytosis 1+ Sodium Level 143 MMOL/L (136-145) Potassium Level 3.9 MMOL/L (3.5-5.1) Chloride Level 107 MMOL/L (98-107) Carbon Dioxide Level 28 MMOL/L (21-32) Anion Gap 8 mmol/L (5-15) Blood Urea Nitrogen 27 mg/dL (7-18) H Creatinine 1.0 MG/DL (0.55-1.30) Estimat Glomerular Filtration Rate > 60 mL/min (>60) Glucose Level 185 MG/DL (74-106) H Calcium Level 8.3 MG/DL (8.5-10.1) L Total Bilirubin 0.4 MG/DL (0.2-1.0) Aspartate Amino Transf (AST/SGOT) 28 U/L (15-37) Alanine Aminotransferase (ALT/SGPT) 18 U/L (12-78) Alkaline Phosphatase 92 U/L (46-116) Total Protein 7.2 G/DL (6.4-8.2) Albumin 2.2 G/DL (3.4-5.0) L Globulin 5.0 g/dL Albumin/Globulin Ratio 0.4 (1.0-2.7) L Intake and Output 06/14/20 06/15/20 19:00 07:00 Intake Total 100 ml 55 ml Output Total 200 ml 400 ml Balance -100 ml -345 ml IV Total 100 ml Tube Feeding 55 ml Output Urine Total 200 ml 400 ml # Voids 1 Objective PHYSICAL EXAMINATION: GENERAL: Patient is well-developed, well-nourished male, in no apparent distress. HEENT: Eyes, pupils are equal and responsive to light and accommodation. Extraocular movements are intact. NECK: Supple. No lymphadenopathy. CHEST: Lungs are clear to auscultation bilaterally without wheezes or rales. CARDIOVASCULAR: Regular rhythm and rate. S1, S2 are normal without murmurs, rubs, or gallops. ABDOMEN: Soft, nontender, nondistended. Positive bowel sounds. No evidence of hepatosplenomegaly. Currently, no rebound or guarding noted. EXTREMITIES: Negative for clubbing, cyanosis, or edema. RECTAL/GENITAL: Not performed. NEUROLOGIC: Cranial nerves II through XII grossly intact without focal deficits. Assessment/Plan Assessment/Plan ASSESSMENT: This is a 69-year-old male. 1. Gastrostomy tube malfunction. 2. Down syndrome. 3. Congestive heart failure. 4. Mental retardation. 5. Chronic subdural hematoma. 6. Cerebrovascular disease, status post cerebrovascular accident. 7. Dysphagia. 8. Right bundle-branch block. 9. Hypertension. 10. Seizure disorder. 11. Hypercholesterolemia. TREATMENT: 1. Malfunction of gastrostomy tube. S/P G-tube replaced in emerg room on 06/09/20. A Gastroenterology consultation= Dr. Chapin Berger. Follow recommendations of Gastroenterology. Tube feedings have been restarted 2. Hypertension. Continue metoprolol as above. 3. Seizure disorder. Continue Keppra as above. 4. Hypercholesterolemia. Continue atorvastatin as above. 5. Down syndrome. 6. Congestive heart failure. 7. Mental retardation. 8. Chronic subdural hematoma. 9. Cerebrovascular disease, status post cerebrovascular accident. 10. Dysphagia. 11. Right bundle-branch block. 12. discharge planning Amor Berg MD Jun 15, 2020 19:00
--- NOTE | 2020-06-15 19:19 | NUR ---
NURSE HAND-OFF REPORT: Important Events on Shift: Covid PCR sent, PUI status, O2 at 5lpm, sats 92-94%; Wound dressing done Patient Status: Stable Diet: GTF Jamey AF @ 55ml/hr Pending Orders: N Pending Results/Labs: N Pending MD notification: N Latest Vital Signs: Temperature 97.9 , Pulse 114 , B/P 104 /69 , Respiratory Rate 22 , O2 SAT 94 , Room Air, O2 Flow Rate 4.0 . Vital Sign Comment: EKG Rhythm: Sinus Tachycardia Rhythm change?: MD Notified?: - MD Response: Latest Santillan Fall Score: 70 Fall Risk: High Risk Safety Measures: Call light Within Reach, Bed Alarm Zone 1, Side Rails Side Rails x3, Bed position Low and Locked. Fall Precautions: Yellow Socks Yellow Gown Door Sign Patient Fall Education Report given to Mg ARNOLD.
--- NOTE | 2020-06-15 19:45 | NUR ---
NURSE NOTES: Received report from Nicci ARNOLD. Patient is asleep, alert and oriented to self. On NC 5L, patient tends to breathe through his mouth only. Saturating 93-95%. No complains of pain or distress noted. Vatal AF running at 55ml/hr. G tube intact and patent with no bleeding noted. Will flush 100cc every 6 hr. Condom cath intact and draining well. IV PICC LUAN intact and patent with no bleeding noted. Bed low and locked. Call light within reach.
[2020-06-15 20:00] VITALS: BP 100/63
[2020-06-15] MEDS: Dyna-Hex 2% Top Sol 2oz TOPIC SCH (20:28)
[2020-06-16] VITALS: BP 115/70
[2020-06-16 04:00] VITALS: BP 110/71
[2020-06-16 06:45] LABS: BASOPHILS % (AUTO) 0.7 % (0.0-2.0); EOSINOPHILS % (AUTO) 0.1 % (0.0-3.0); HEMATOCRIT 36.5 % (42.0-52.0); LYMPHOCYTES % (AUTO) 8.5 % (20.0-45.0); MEAN CORPUSCULAR VOLUME 103 FL (80-99); NEUTROPHILS % (AUTO) 80.6 % (45.0-75.0); PLATELET COUNT 152 K/UL (150-450); RED BLOOD COUNT 3.56 M/UL (4.70-6.10); RED CELL DISTRIBUTION WIDTH 15.1 % (11.6-14.8); WHITE BLOOD COUNT 11.6 K/UL (4.8-10.8)
[2020-06-16 07:13] LABS: ANION GAP 7 mmol/L (5-15); BLOOD UREA NITROGEN 26 mg/dL (7-18); CALCIUM 8.5 MG/DL (8.5-10.1); CARBON DIOXIDE 29 MMOL/L (21-32); CHLORIDE 108 MMOL/L (98-107); CREATININE 0.8 MG/DL (0.55-1.30); POTASSIUM 3.8 MMOL/L (3.5-5.1); SODIUM 144 MMOL/L (136-145)
--- NOTE | 2020-06-16 07:30 | NUR ---
NURSE NOTES: Patient is in bed asleep. Stable. Breathing is even and unlabored. No visible signs of distress noted. All safety measures provided. Patient is in bed in locked and lowest position with call light within reach. All needs met at this time. Will continue plan of care.
--- NOTE | 2020-06-16 07:46 | NUR ---
NURSE HAND-OFF: Important Events on Shift: Vital AF 55cc/hr, NC 6L O2 sat 90-93 Patient Status: Stable Diet: Vatal AF 55cc/hr Pending Orders: [] Pending Results/Labs:[] Pending MD notification:[] Latest Vital Signs: Temperature 99.1 , Pulse 118 , B/P 110 /71 , Respiratory Rate 20 , O2 SAT 91 , Room Air, O2 Flow Rate 6.0 . Vital Sign Comment: VS stable Latest Santillan Fall Score: 70 Fall Risk: High Risk Safety Measures: Call light Within Reach, Bed Alarm Zone 1, Side Rails Side Rails x3, Bed position Low and Locked. Fall Precautions: Yellow Socks Yellow Gown Door Sign Patient Fall Education Report given to Lidya ARNOLD.
[2020-06-16 08:00] VITALS: BP 115/75
[2020-06-16] MEDS: levETIRAcetam 500mg/NS100ml 100 ML IVPB SCH ×2 (08:54→20:10)
[2020-06-16] MEDS: Zinc Oxide Oint 2oz TOPIC SCH ×3 (09:01→18:00)
--- NOTE | 2020-06-16 09:32 | General Progress Note ---
Subjective ROS Limited/Unobtainable: No Allergies: Coded Allergies: SULFA (SULFONAMIDE ANTIBIOTICS) (Verified Allergy, Unknown, 09/02/15) Objective Last 24 Hour Vital Signs Date Time Temp Pulse Resp B/P (MAP) Pulse Ox O2 Delivery O2 Flow Rate FiO2 06/16/20 04:00 99.1 118 20 110/71 (84) 91 06/16/20 00:00 97.7 118 20 115/70 (85) 93 06/15/20 21:00 Nasal Cannula 6.0 06/15/20 20:00 100.0 118 20 100/63 (75) 95 06/15/20 16:00 97.9 114 22 104/69 (81) 94 06/15/20 13:11 Nasal Cannula 4.0 06/15/20 12:00 98.1 117 22 102/67 (79) 95 Intake and Output 06/15/20 06/16/20 19:00 07:00 Intake Total 805 ml Output Total 350 ml 400 ml Balance 455 ml -400 ml Free Water 200 ml Tube Feeding 605 ml Output Urine Total 350 ml Other 400 ml Laboratory Tests 06/16/20 05:50: White Blood Count 11.6H, Red Blood Count 3.56L, Hemoglobin 12.0L, Hematocrit 36.5L, Mean Corpuscular Volume 103H, Mean Corpuscular Hemoglobin 33.8H, Mean Corpuscular Hemoglobin Concent 32.9, Red Cell Distribution Width 15.1H, Platelet Count 152, Mean Platelet Volume 9.5, Neutrophils (%) (Auto) 80.6H, Lymphocytes (%) (Auto) 8.5L, Monocytes (%) (Auto) 10.0, Eosinophils (%) (Auto) 0.1, Basophi ls (%) (Auto) 0.7, Sodium Level 144, Potassium Level 3.8, Chloride Level 108H, Carbon Dioxide Level 29, Anion Gap 7, Blood Urea Nitrogen 26H, Creatinine 0.8, Estimat Glomerular Filtration Rate > 60, Glucose Level 156H, Calcium Level 8.5 Height (Feet): 5 Height (Inches): 4.00 Weight (Pounds): 133 General Appearance: no apparent distress EENT: normal ENT inspection Neck: supple Cardiovascular: normal rate Respiratory/Chest: decreased breath sounds Abdomen: normal bowel sounds, non tender, soft Extremities: non-tender Assessment/Plan Assessment/Plan: 1. Down syndrome. 2. CHF. 3. Dysphagia with G-tube. 4. History of constipation. GTF GT care talib GT care Chapin Berger MD Jun 16, 2020 09:32
--- NOTE | 2020-06-16 11:18 | NUR ---
RD ASSESSMENT & RECOMMENDATIONS SEE CARE ACTIVITY FOR COMPLETE ASSESSMENT DAILY ESTIMATED NEEDS: Needs based on cardiac, wound 63kg 25-30 kcals/kg 1605-9400 total kcals 1.25-1.5 g protein/kg 79-95 g total protein 25-30 mL/kg 8093-0560 total fluid mLs NUTRITION DIAGNOSIS: Difficulty swallowing r/t dysphagia as evidenced by pt is PEG dep for all nutritional needs. CURRENT TF:Vital AF 1.2 @ 55ml/hr ordered- held 2 hrs for Synthroid ENTERAL NUTRITION RECOMMENDATIONS: Glucerna 1.2 @ 60ml/hr x 22 hrs to provide 1320ml, 1584kcal, 79g prot, 1063ml free water - Elemental TF of Vital AF not indicated, rec Glucerna 1.2 for carb control. - Rec goal rate of 60ml, initiate @ 30ml/hrx 6hrs, advance 10ml q 4-6 hrs as tolerated to goal rate. - HOLD 1 Hr before and after synthroid meds- TF to run max 22 hrs - HOB over 30 degrees/ without IVF, h2o flush of 120ml q 6hrs ADDITIONAL RECOMMENDATIONS: 1) Calibrated bed scale wts weekly 2) Monitor lytes closely, replete as needed 3) Wound healing: TF @ goal will provide 100% RDI Add Camron BID via PEG 4) Check HgA1C, rec accuchecks/niss
--- NOTE | 2020-06-16 11:21 | Consultation ---
History of Present Illness General Date patient seen: Jun 16, 2020 Time patient seen: 11:18 Chief Complaint: Malfunctioning Gastric Tube Referring physician: Dr. Steward Reason for Consultation: Fevers, leukocytosis Present Illness HPI 69yo M who p/w G-tube malfunction, s/p PEG replacement in ED 06/09, now with ongoing low-grade fevers and mild leukocytosis to 11 for which ID is consulted. Pt is not interactive, laying in bed Satting on 90% on NC PEG w/ very dark drainage from tube side and erythema of the skin [place] Allergies: Coded Allergies: SULFA (SULFONAMIDE ANTIBIOTICS) (Verified Allergy, Unknown, 09/02/15) Medication History Scheduled Ascorbic Acid* (Vitamin C*), 500 MG GT DAILY, (Reported) Aspirin* (Aspirin*), 81 MG GT DAILY, (Reported) Atorvastatin Calcium* (Atorvastatin Calcium*), 10 MG GT BEDTIME, (Reported) Calcium Carbonate (Oyster Shell Calcium), 500 MG GT DAILY, (Reported) Chlorhexidine Gluconate (Chlorhexidine Gluconate), 15 ML MM BID, (Reported) Cholecalciferol (Vitamin D3) (Vitamin D3*), 50 MCG GT DAILY, (Reported) Heparin Sodium,Porcine/Ns/Pf (Heparin), 5,000 UNIT IV Q8HR, (Reported) Lactulose (Lactulose*), 30 ML GT DAILY, (Reported) Levetiracetam (Levetiracetam), 10 ML GT BID, (Reported) Levetiracetam* (Levetiracetam*), 500 MG ORAL TWICE A DAY, (Reported) Levothyroxine Sodium* (Levothyroxine Sodium*), 125 MCG ORAL DAILY, (Reported) Levothyroxine Sodium* (Levothyroxine Sodium*), 175 MCG GT DAILY, (Reported) Metoprolol Tartrate* (Metoprolol Tartrate*), 25 MG GT DAILY, (Reported) Multivits W-Min/Ferrous Gluc (Multivitamin-Mineral Liquid), 5 ML GT DAILY, (Reported) [place]-3 Fatty Acids/Fish Oil ([place] 3 1,000 Mg Softgel), 1 EACH GT DAILY, (Reported) Sevelamer Carbonate* (Renvela*), 800 MG GT DAILY, (Reported) Zinc Sulfate (Zinc Sulfate*), 220 MG GT DAILY, (Reported) Scheduled PRN Acetaminophen* (Acetaminophen 325MG Tablet*), 650 MG ORAL Q6H PRN for fever and pain, (Reported) Ipratropium/Albuterol Sulfate (DuoNeb 0.5-3(2.5)mg/3ml), 3 ML HHN Q4HR PRN for Shortness of Breath, (Reported) Miscellaneous Medications Ipratropium/Albuterol Sulfate (Iprat-Albut 0.5-3(2.5) Mg/3 Ml), 3 ML IH, (Reported) Discontinued Medications Acetaminophen (Acetaminophen), 325 MG PO Q4HR PRN for For Pain, (Reported) Discontinued Reason: Prescription changed Bismuth Subsalicylate ([place] Bismuth), 30 ML PO Q6HR, (Reported) Discontinued Reason: Therapy completed Clotrimazole (Clotrimazole), 30 GM TP PRN, (Reported) Discontinued Reason: Therapy completed Denosumab (Prolia), 60 MG SUBQ EVERY 6 MONTHS, (Reported) Discontinued Reason: Therapy completed Docusate Sodium* (Docusate Sodium*), 100 MG ORAL PRN, (Reported) Discontinued Reason: Therapy completed Docusate Sodium* (Colace*), 100 MG ORAL DAILY, (Reported) Discontinued Reason: Therapy completed Econazole Nitrate (Econazole Nitrate), 1 APPLIC TOP DAILY, (Reported) Discontinued Reason: Therapy completed Guaifenesin/Dextromethorphan (Q-Tussin Dm Syrup), 10 ML PO Q6HR, (Reported) Discontinued Reason: Therapy completed Levothyroxine Sodium* (Levothyroxine Sodium*), 100 MCG ORAL DAILY, (Reported) Discontinued Reason: Therapy completed Linaclotide (Linzess), 145 MCG PO DAILY, (Reported) Discontinued Reason: Therapy completed Loratadine (Claritin*), 10 MG PO PRN, (Reported) Discontinued Reason: Therapy completed Magnesium Hydroxide* (Milk Of Magnesia*), 15 ML ORAL PRN, (Reported) Discontinued Reason: Therapy completed Metoprolol Succinate* (Metoprolol Succinate*), 12.5 MG ORAL DAILY, (Reported) Discontinued Reason: Therapy completed Mineral Oil/Carrageenan (Kondremul Microemulsion), 2.5 ML PO BID PRN for Per rx protocol, (Reported) Discontinued Reason: Therapy completed Olanzapine* (Zyprexa*), 5 MG ORAL DAILY, (Reported) Discontinued Reason: Therapy completed Polyethylene Glycol 3350* (Miralax*), 17 GM ORAL DAILY, (Reported) Discontinued Reason: Therapy completed Pravastatin Sod* (Pravastatin Sod*), 20 MG ORAL BEDTIME, (Reported) Discontinued Reason: Therapy completed Patient History Limited by: medical condition Healthcare decision maker Resuscitation status Advanced Directive on File Review of Systems ROS Narrative Unable to assess 2/2 pt condition Physical Exam Physical Exam Narrative Gen: NAD HEENT: NCAT CV: RRR Pulm: CTAB Abd: Soft, NTND +PEG w/ very dark drainage around insertion site, soaking the dressing, also w/ skin erythema/breakdown around site Ext: No c/c/e Neuro: Not interactive Last 24 Hour Vital Signs Date Time Temp Pulse Resp B/P (MAP) Pulse Ox O2 Delivery O2 Flow Rate FiO2 06/16/20 09:00 Nasal Cannula 6.0 06/16/20 08:00 99.9 129 24 115/75 (88) 19 06/16/20 04:00 99.1 118 20 110/71 (84) 91 06/16/20 00:00 97.7 118 20 115/70 (85) 93 06/15/20 21:00 Nasal Cannula 6.0 06/15/20 20:00 100.0 118 20 100/63 (75) 95 06/15/20 16:00 97.9 114 22 104/69 (81) 94 06/15/20 13:11 Nasal Cannula 4.0 06/15/20 12:00 98.1 117 22 102/67 (79) 95 Intake and Output 06/15/20 06/16/20 19:00 07:00 Intake Total 805 ml Output Total 350 ml 400 ml Balance 455 ml -400 ml Free Water 200 ml Tube Feeding 605 ml Output Urine Total 350 ml Other 400 ml Laboratory Tests Test 06/16/20 05:50 White Blood Count 11.6 K/UL (4.8-10.8) H Red Blood Count 3.56 M/UL (4.70-6.10) L Hemoglobin 12.0 G/DL (14.2-18.0) L Hematocrit 36.5 % (42.0-52.0) L Mean Corpuscular Volume 103 FL (80-99) H Mean Corpuscular Hemoglobin 33.8 PG (27.0-31.0) H Mean Corpuscular Hemoglobin Concent 32.9 G/DL (32.0-36.0) Red Cell Distribution Width 15.1 % (11.6-14.8) H Platelet Count 152 K/UL (150-450) Mean Platelet Volume 9.5 FL (6.5-10.1) Neutrophils (%) (Auto) 80.6 % (45.0-75.0) H Lymphocytes (%) (Auto) 8.5 % (20.0-45.0) L Monocytes (%) (Auto) 10.0 % (1.0-10.0) Eosinophils (%) (Auto) 0.1 % (0.0-3.0) Basophils (%) (Auto) 0.7 % (0.0-2.0) Sodium Level 144 MMOL/L (136-145) Potassium Level 3.8 MMOL/L (3.5-5.1) Chloride Level 108 MMOL/L (98-107) H Carbon Dioxide Level 29 MMOL/L (21-32) Anion Gap 7 mmol/L (5-15) Blood Urea Nitrogen 26 mg/dL (7-18) H Creatinine 0.8 MG/DL (0.55-1.30) Estimat Glomerular Filtration Rate > 60 mL/min (>60) Glucose Level 156 MG/DL (74-106) H Calcium Level 8.5 MG/DL (8.5-10.1) Height (Feet): 5 Height (Inches): 4.00 Weight (Pounds): 133 Medications Current Medications Medications (Trade) Dose Ordered Sig/Eddy Route PRN Reason Start Time Stop Time Status Last Admin Dose Admin Acetaminophen (Tylenol) 650 mg Q6H PRN RECTAL Temp >100.5/Mild Pain (1-3) 06/09/20 08:00 07/09/20 07:59 06/14/20 21:31 Albuterol/ Ipratropium (Albuterol/ Ipratropium) 3 ml Q4H PRN HHN Shortness of Breath 06/13/20 17:09 06/18/20 17:08 Chlorhexidine Gluconate (Tesha-Hex 2%) 1 applic BEDTIME TOPIC 06/09/20 21:00 09/07/20 20:59 06/15/20 20:28 Levetiracetam 100 ml @ 400 mls/hr Q12HR IVPB 06/09/20 09:30 09/07/20 09:29 06/16/20 08:54 Levothyroxine Sodium (Synthroid) 88 mcg DAILY@0630 GT 06/09/20 09:00 07/09/20 08:59 06/16/20 06:30 Zinc Oxide (Zinc Oxide) 1 applic THREE TIMES A DAY TOPIC 06/09/20 10:00 09/07/20 09:59 06/16/20 09:01 Assessment/Plan Assessment/Plan: 69yo M with: Febrile to 100.4 Mild leukocytosis to 11 R/o infection Hypoxia on 6L NC, r/o COVID Erythema around PEG site Dark drainage from PEG 06/09 COVID PCR neg 06/13 CXR: 1. Interstitial opacities most prominent in the perihilar regions which may represent pulmonary vasculature congestion/edema. Probable small left pleural effusion. 2. Right-sided PICC line terminates in the region of the right axilla. Nonspecific thin linear density in the right hilar region. Question abandoned catheter fragment versus external artifact. 06/15 COVID PCR p Cr 0.8 Dysphagia s/p PEG with replacement in ED 06/09 Down syndrome CHF S/p CVA HTN HLD Seizure disorder Plan: Start CTX 1g IV daily for possible cellulitis around PEG site given erythema and skin breakdown F/u repeat COVID swab from 06/15 Appreciate GI input on copious dark drainage from PEG site causing skin irritation and possible cellulitis Trend WBC, temp curve Monitor CBC/CMP Monitor resp status Monitor temp curve, hemodynamics D/w RN Thank you for this consult. [facility] will continue to follow. Caryn Murphy M.D. Jun 16, 2020 11:21
[2020-06-16 12:00] VITALS: BP 121/71
--- NOTE | 2020-06-16 12:01 | Surgery Progress Note ---
Surgery Progress Note Subjective Symptoms: improved, tolerating diet, passing flatus Objective Last 24 Hour Vital Signs Date Time Temp Pulse Resp B/P (MAP) Pulse Ox O2 Delivery O2 Flow Rate FiO2 06/16/20 09:00 Nasal Cannula 6.0 06/16/20 08:00 99.9 129 24 115/75 (88) 19 06/16/20 04:00 99.1 118 20 110/71 (84) 91 06/16/20 00:00 97.7 118 20 115/70 (85) 93 06/15/20 21:00 Nasal Cannula 6.0 06/15/20 20:00 100.0 118 20 100/63 (75) 95 06/15/20 16:00 97.9 114 22 104/69 (81) 94 06/15/20 13:11 Nasal Cannula 4.0 I&O Intake and Output 06/15/20 06/16/20 19:00 07:00 Intake Total 805 ml Output Total 350 ml 400 ml Balance 455 ml -400 ml Free Water 200 ml Tube Feeding 605 ml Output Urine Total 350 ml Other 400 ml Dressing: saturated Wound: clean Cardiovascular: RSR Respiratory: clear, decreased breath sounds Abdomen: soft, non-tender, present bowel sounds, other, non-distended Extremities: no edema, no tenderness, no cyanosis Laboratory Tests Test 06/16/20 05:50 White Blood Count 11.6 K/UL (4.8-10.8) H Red Blood Count 3.56 M/UL (4.70-6.10) L Hemoglobin 12.0 G/DL (14.2-18.0) L Hematocrit 36.5 % (42.0-52.0) L Mean Corpuscular Volume 103 FL (80-99) H Mean Corpuscular Hemoglobin 33.8 PG (27.0-31.0) H Mean Corpuscular Hemoglobin Concent 32.9 G/DL (32.0-36.0) Red Cell Distribution Width 15.1 % (11.6-14.8) H Platelet Count 152 K/UL (150-450) Mean Platelet Volume 9.5 FL (6.5-10.1) Neutrophils (%) (Auto) 80.6 % (45.0-75.0) H Lymphocytes (%) (Auto) 8.5 % (20.0-45.0) L Monocytes (%) (Auto) 10.0 % (1.0-10.0) Eosinophils (%) (Auto) 0.1 % (0.0-3.0) Basophils (%) (Auto) 0.7 % (0.0-2.0) Sodium Level 144 MMOL/L (136-145) Potassium Level 3.8 MMOL/L (3.5-5.1) Chloride Level 108 MMOL/L (98-107) H Carbon Dioxide Level 29 MMOL/L (21-32) Anion Gap 7 mmol/L (5-15) Blood Urea Nitrogen 26 mg/dL (7-18) H Creatinine 0.8 MG/DL (0.55-1.30) Estimat Glomerular Filtration Rate > 60 mL/min (>60) Glucose Level 156 MG/DL (74-106) H Calcium Level 8.5 MG/DL (8.5-10.1) Plan Problems: (1) Malfunction of gastrostomy tube Assessment & Plan: 69-year-old male with recent traumatic G-tube insertion identified bleeding at the time since now hemostatic. G-tube reinserted by emergency department check by GI appropriate placement identified. KUB noted. Periwound maceration identified zinc oxide applied. Local wound care will be co ntinued. Okay to use feeding tube at this time. Will follow with recommendations thank you GT exuding large amt sanguineous exudate with several small clots noted. Formula also noted to be mixed with sanguineous exudate. Peristomal skin is less erythematous in comparison to initial assessment. Peristomal skin is more pink and denuded. Discussed skin findings with and treatment amended to Zinc Oxide Paste with Calcium Alginate and Optifoam drsg Daily and prn. Tx.Plan: Wash Peristomal Gt with Soap and water. Saab dry. Apply Zinc Oxide Paste. Apply Maxsorb drsg. Cover with Optifoam drsg. Change Daily and prn. DAILY ESTIMATED NEEDS: Needs based on Pulmonary, wound, wt loss 48.6kg 30-35 kcals/kg 6337-9551 total kcals 1.25-1.5 g protein/kg 61-73 g total protein 25-30 mL/kg 9128-4110 total fluid mLs NUTRITION DIAGNOSIS: Difficulty swallowing r/t dysphagia as evidenced by pt is PEG dep for all nutritional needs. 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 multiple small blotchy areas. area of resolving wound noted cephalad. Incontinence associated dermatitis perineal area and buttocks, erythema noted. Intact serous blister noted to posterior L tibia,surrounding skin is pink and intact. Stable brown eschar noted to L heel(L)0.7cm x (W)0.9cm.Periwound without erythema or fluctuance. R heel boggy but blanchable.Diffused red rash noted to bilat lower ext. No other areas of skin concerns noted. Tx.Plan: Apply Triad to Buttocks and groin areas with each perineal care. Apply Cavilon Skin barrier to both heels .Off-load heels with pillow. Reposition at least every 2hours or as tolerated. Support surface mattress. Joselito Dorman Jun 16, 2020 12:00
[2020-06-16] MEDS ORDERED: cefTRIAXone 1 GM in D5W 55 ML IVPB SCH (12:30)
--- NOTE | 2020-06-16 13:23 | NUR ---
NURSE NOTES: GT cleaned with soap and water, dressing changed. C/D/I. Addendum: 06/16/20 at 1324 by TRISTA AYALA RN No residual noted, free water flush given as ordered. Patient tolerated well. Tube feeding running as ordered.
[2020-06-16 16:00] VITALS: BP 132/62
--- NOTE | 2020-06-16 16:07 | NUR ---
CASE MANAGEMENT:REVIEW 06/16/20 SI: GTUBE MALFUNCTION. CHF. MULTIPLE WOUNDS 99.9 129 24 115/75 93% ON 6L/NC6 IS: IV KEPPRA Q12 IV ROCEPHIN Q24 IVF@75/HR ZINC OXIDE TOPIC TID SYNTHROID GT QD : MED/SURG STATUS DCP: FROM [employer] PLAN: MONITOR TEMPS
--- NOTE | 2020-06-16 16:58 | NUR ---
NURSE NOTES: Reported elevated HR to Dr. Steward, no new orders at this time. Patient is stable and asymptomatic. WIll continue plan of care.
--- NOTE | 2020-06-16 18:38 | Internal Med Progress Note ---
Subjective Date of Service: Jun 16, 2020 Physician Name MorenaAmor Attending Physician Jasen Steward MD Current Medications Medications (Trade) Dose Ordered Sig/Eddy Route PRN Reason Start Time Stop Time Status Last Admin Dose Admin Acetaminophen (Tylenol) 650 mg Q6H PRN RECTAL Temp >100.5/Mild Pain (1-3) 06/09/20 08:00 07/09/20 07:59 06/14/20 21:31 Albuterol/ Ipratropium (Albuterol/ Ipratropium) 3 ml Q4H PRN HHN Shortness of Breath 06/13/20 17:09 06/18/20 17:08 Ceftriaxone Sodium 1 gm/ Dextrose 55 ml @ 110 mls/hr Q24H IVPB 06/16/20 12:30 06/23/20 12:29 06/16/20 12:44 Chlorhexidine Gluconate (Tesha-Hex 2%) 1 applic BEDTIME TOPIC 06/09/20 21:00 09/07/20 20:59 06/15/20 20:28 Levetiracetam 100 ml @ 400 mls/hr Q12HR IVPB 06/09/20 09:30 09/07/20 09:29 06/16/20 08:54 Levothyroxine Sodium (Synthroid) 88 mcg DAILY@0630 GT 06/09/20 09:00 07/09/20 08:59 06/16/20 06:30 Zinc Oxide (Zinc Oxide) 1 applic THREE TIMES A DAY TOPIC 06/09/20 10:00 09/07/20 09:59 06/16/20 18:00 Allergies: Coded Allergies: SULFA (SULFONAMIDE ANTIBIOTICS) (Verified Allergy, Unknown, 09/02/15) ROS Limited/Unobtainable: Yes Subjective 69 YO M with history of Down's syndrome and dysphagia admitted with G-tube malfunction. S/P G-tube replaced in ER. Cover for Int Med-Dr Steward Objective Last Vital Signs Date Time Temp Pulse Resp B/P (MAP) Pulse Ox O2 Delivery O2 Flow Rate FiO2 06/16/20 16:00 98.1 132 24 132/62 (85) 91 06/16/20 09:00 Nasal Cannula 6.0 06/14/20 19:14 32 Laboratory Tests Test 06/16/20 05:50 White Blood Count 11.6 K/UL (4.8-10.8) H Red Blood Count 3.56 M/UL (4.70-6.10) L Hemoglobin 12.0 G/DL (14.2-18.0) L Hematocrit 36.5 % (42.0-52.0) L Mean Corpuscular Volume 103 FL (80-99) H Mean Corpuscular Hemoglobin 33.8 PG (27.0-31.0) H Mean Corpuscular Hemoglobin Concent 32.9 G/DL (32.0-36.0) Red Cell Distribution Width 15.1 % (11.6-14.8) H Platelet Count 152 K/UL (150-450) Mean Platelet Volume 9.5 FL (6.5-10.1) Neutrophils (%) (Auto) 80.6 % (45.0-75.0) H Lymphocytes (%) (Auto) 8.5 % (20.0-45.0) L Monocytes (%) (Auto) 10.0 % (1.0-10.0) Eosinophils (%) (Auto) 0.1 % (0.0-3.0) Basophils (%) (Auto) 0.7 % (0.0-2.0) Sodium Level 144 MMOL/L (136-145) Potassium Level 3.8 MMOL/L (3.5-5.1) Chloride Level 108 MMOL/L (98-107) H Carbon Dioxide Level 29 MMOL/L (21-32) Anion Gap 7 mmol/L (5-15) Blood Urea Nitrogen 26 mg/dL (7-18) H Creatinine 0.8 MG/DL (0.55-1.30) Estimat Glomerular Filtration Rate > 60 mL/min (>60) Glucose Level 156 MG/DL (74-106) H Calcium Level 8.5 MG/DL (8.5-10.1) Microbiology Date/Time Source Procedure Growth Status 06/15/20 11:00 Nasopharynx Coronavirus COVID-19 PCR ([facility]) - Final Complete Intake and Output 06/15/20 06/16/20 19:00 07:00 Intake Total 805 ml Output Total 350 ml 400 ml Balance 455 ml -400 ml Free Water 200 ml Tube Feeding 605 ml Output Urine Total 350 ml Other 400 ml Objective PHYSICAL EXAMINATION: GENERAL: Patient is well-developed, well-nourished male, in no apparent distress. HEENT: Eyes, pupils are equal and responsive to light and accommodation. Extraocular movements are intact. NECK: Supple. No lymphadenopathy. CHEST: Simple mask; Lungs are clear to auscultation bilaterally without wheezes or rales. CARDIOVASCULAR: Regular rhythm and rate. S1, S2 are normal without murmurs, rubs, or gallops. ABDOMEN: Soft, nontender, nondistended. Positive bowel sounds. No evidence of hepatosplenomegaly. Currently, no rebound or guarding noted. EXTREMITIES: Negative for clubbing, cyanosis, or edema. RECTAL/GENITAL: Not performed. NEUROLOGIC: Cranial nerves II through XII grossly intact without focal deficits. Assessment/Plan Assessment/Plan ASSESSMENT: This is a 69-year-old male. 1. Gastrostomy tube malfunction. 2. Down syndrome. 3. Congestive heart failure. 4. Mental retardation. 5. Chronic subdural hematoma. 6. Cerebrovascular disease, status post cerebrovascular accident. 7. Dysphagia. 8. Right bundle-branch block. 9. Hypertension. 10. Seizure disorder. 11. Hypercholesterolemia. TREATMENT: 1. Malfunction of gastrostomy tube. S/P G-tube replaced in emerg room on 06/09/20. A Gastroenterology consultation= Dr. Chapin Berger. Follow recommendations of Gastroenterology. Tube feedings have been restarted 2. Hypertension. Continue metoprolol as above. 3. Seizure disorder. Continue Keppra as above. 4. Hypercholesterolemia. Continue atorvastatin as above. 5. Down syndrome. 6. Congestive heart failure. 7. Mental retardation. 8. Chronic subdural hematoma. 9. Cerebrovascular disease, status post cerebrovascular accident. 10. Dysphagia. 11. Right bundle-branch block. 12. discharge planning Amor Berg MD Jun 16, 2020 18:38
--- NOTE | 2020-06-16 19:46 | NUR ---
NURSE NOTES: Hand off to Amy ARNOLD.
--- NOTE | 2020-06-16 19:47 | NUR ---
NURSE NOTES: Received report & pt from CATALINA Bose. Pt in bed, non-verbal, on simple mask @ 10LPM. Pt GTube intact & running Vital AF 1.2 @ 55ml/hr. Condom cath intact. PICC line intact & S?L'd. B/L side rails padded for seizure precaution. Bed in lowest position, call light within reach. Will continue to monitor.
--- NOTE | 2020-06-16 19:53 | NUR ---
NURSE NOTES: Pt saturating 85% with simple mask @ 10LPM. Called RT Jermaine. Pt now in non-rebreather mask @ 15LPM & saturating 92%. Will continue to monitor.
[2020-06-16 20:00] VITALS: BP 113/65
[2020-06-16] MEDS: Dyna-Hex 2% Top Sol 2oz TOPIC SCH (20:10)
[2020-06-16] MEDS: Acetaminophen 650 MG SUPP RECTAL PRN (22:39)
--- NOTE | 2020-06-17 | NUR ---
NURSE NOTES: 0ml residual. Given 100ml water flush Q6HR as ordered by . Febrile 101.7 oral temp. Cooling measures provided. Tylenol rectal was given earlier 2238 for temp 100.4 axillary. Will continue to monitor pt.
[2020-06-17 00:33] VITALS: BP 100/68
--- NOTE | 2020-06-17 01:54 | NUR ---
NURSE NOTES: Current oral temp 99.1
[2020-06-17 04:00] VITALS: BP 95/64
--- NOTE | 2020-06-17 05:13 | NUR ---
NURSE NOTES: Cleaned pt. Cleaned GT site, applied new dressing as ordered by . C/D/I.
--- NOTE | 2020-06-17 06:34 | NUR ---
NURSE HAND-OFF: Important Events on Shift:febrile 100.4, tylenol given x1. Current temp 97.1 axillary, still tachy 112-130s, GT site drsg changed, non-rebreather mask @ 15LPM saturating 94-97% Patient Status: stable Diet: tube feeding vital AF 1.2 @ 55 ml/hr Pending Orders: Pending Results/Labs: Pending MD notification: Latest Vital Signs: Temperature 97.5 , Pulse 112 , B/P 95 /64 , Respiratory Rate 24 , O2 SAT 97 , Room Air, O2 Flow Rate 15.0 . Vital Sign Comment: Latest Santillan Fall Score: 70 Fall Risk: High Risk Safety Measures: Call light Within Reach, Bed Alarm Zone 1, Side Rails Side Rails x3, Bed position Low and Locked. Fall Precautions: Yellow Socks Yellow Gown Door Sign Patient Fall Education Report given to CATALINA Gutierrez.
[2020-06-17 08:00] VITALS: BP 112/65
--- NOTE | 2020-06-17 08:18 | General Progress Note ---
Subjective ROS Limited/Unobtainable: No Allergies: Coded Allergies: SULFA (SULFONAMIDE ANTIBIOTICS) (Verified Allergy, Unknown, 09/02/15) Objective Last 24 Hour Vital Signs Date Time Temp Pulse Resp B/P (MAP) Pulse Ox O2 Delivery O2 Flow Rate FiO2 06/17/20 04:00 97.5 112 24 95/64 (74) 97 06/17/20 02:00 99.1 06/17/20 00:33 101.7 127 23 100/68 (79) 95 06/16/20 23:09 102.0 06/16/20 21:00 Non-Rebreather 15.0 06/16/20 20:00 100.4 130 24 113/65 (81) 90 06/16/20 16:00 98.1 132 24 132/62 (85) 91 06/16/20 12:00 98.9 89 19 121/71 (88) 93 06/16/20 09:00 Nasal Cannula 6.0 Intake and Output 06/16/20 06/17/20 19:00 07:00 Intake Total 1255 ml 595 ml Output Total 350 ml Balance 905 ml 595 ml Free Water 100 ml Tube Feeding 55 ml 495 ml Other 1200 ml Output Urine Total 350 ml Height (Feet): 5 Height (Inches): 4.00 Weight (Pounds): 133 General Appearance: no apparent distress EENT: normal ENT inspection Neck: supple Cardiovascular: normal rate Respiratory/Chest: decreased breath sounds Abdomen: normal bowel sounds, non tender, soft Extremities: non-tender Assessment/Plan Assessment/Plan: 1. Down syndrome. 2. CHF. 3. Dysphagia with G-tube. 4. History of constipation. GTF GT care talib GT care Chapin Berger MD Jun 17, 2020 08:18
--- NOTE | 2020-06-17 08:43 | Infectious Diseases Prog Note ---
Assessment/Plan 69yo M with: Febrile to 100.4 - 102 Mild leukocytosis to 11 R/o infection Hypoxia on 6L NC, r/o COVID - neg Erythema around PEG site Dark drainage from PEG 06/09 COVID PCR neg 06/13 CXR: 1. Interstitial opacities most prominent in the perihilar regions which may represent pulmonary vasculature congestion/edema. Probable small left pleural effusion. 2. Right-sided PICC line terminates in the region of the right axilla. Nonspecific thin linear density in the right hilar region. Question abandoned catheter fragment versus external artifact. 06/15 COVID PCR neg 06/17 BCx ordered Cr 0.8 Dysphagia s/p PEG with replacement in ED 06/09 Down syndrome CHF S/p CVA HTN HLD Seizure disorder Plan: Broaden to Zosyn #1 given ongoing fevers, leukocytosis Stop CTX 1g IV daily #1 for possible cellulitis around PEG site given erythema and skin breakdown BCx given high fever Trend WBC - labs ordered for today Appreciate GI input on copious dark drainage from PEG site causing skin irritation and possible cellulitis Trend WBC, temp curve 06/17 SP CTX #1 Monitor CBC/CMP Monitor resp status Monitor temp curve, hemodynamics D/w RN Thank you for this consult. [facility] will continue to follow. Subjective Allergies: Coded Allergies: SULFA (SULFONAMIDE ANTIBIOTICS) (Verified Allergy, Unknown, 09/02/15) Tmax 102 NAD in bed COVID PCR neg WBC increased to 12.7 Ongoing dark drainage around PEG site Not interactive On NRB mask Objective Last 24 Hour Vital Signs Date Time Temp Pulse Resp B/P (MAP) Pulse Ox O2 Delivery O2 Flow Rate FiO2 06/17/20 08:28 98 18 98 Non-Rebreather 15.0 100 06/17/20 04:00 97.5 112 24 95/64 (74) 97 06/17/20 02:00 99.1 06/17/20 00:33 101.7 127 23 100/68 (79) 95 06/16/20 23:09 102.0 06/16/20 21:00 Non-Rebreather 15.0 06/16/20 20:00 100.4 130 24 113/65 (81) 90 06/16/20 16:00 98.1 132 24 132/62 (85) 91 06/16/20 12:00 98.9 89 19 121/71 (88) 93 06/16/20 09:00 Nasal Cannula 6.0 Height (Feet): 5 Height (Inches): 4.00 Weight (Pounds): 133 Gen: NAD in bed HEENT: NCAT CV: RRR Pulm: CTAB Abd: Soft, NTND + PEG w/ dark drainage around site Ext: No c/c/e Neuro: Not interactive Microbiology Date/Time Source Procedure Growth Status 06/15/20 11:00 Nasopharynx Coronavirus COVID-19 PCR ([facility]) - Final Complete Current Medications Medications (Trade) Dose Ordered Sig/Eddy Route PRN Reason Start Time Stop Time Status Last Admin Dose Admin Acetaminophen (Tylenol) 650 mg Q6H PRN RECTAL Temp >100.5/Mild Pain (1-3) 06/09/20 08:00 07/09/20 07:59 06/16/20 22:39 Albuterol/ Ipratropium (Albuterol/ Ipratropium) 3 ml Q4H PRN HHN Shortness of Breath 06/13/20 17:09 06/18/20 17:08 Ceftriaxone Sodium 1 gm/ Dextrose 55 ml @ 110 mls/hr Q24H IVPB 06/16/20 12:30 06/23/20 12:29 06/16/20 12:44 Chlorhexidine Gluconate (Tesha-Hex 2%) 1 applic BEDTIME TOPIC 06/09/20 21:00 09/07/20 20:59 06/16/20 20:10 Levetiracetam 100 ml @ 400 mls/hr Q12HR IVPB 06/09/20 09:30 09/07/20 09:29 06/16/20 20:10 Levothyroxine Sodium (Synthroid) 88 mcg DAILY@0630 GT 06/09/20 09:00 07/09/20 08:59 06/17/20 06:10 Zinc Oxide (Zinc Oxide) 1 applic THREE TIMES A DAY TOPIC 06/09/20 10:00 09/07/20 09:59 06/16/20 18:00 Caryn Murphy M.D. Jun 17, 2020 08:43
[2020-06-17] MEDS: levETIRAcetam 500mg/NS100ml 100 ML IVPB SCH ×2 (08:56→20:22)
[2020-06-17] MEDS: Zinc Oxide Oint 2oz TOPIC SCH ×3 (08:57→17:46)
[2020-06-17 10:40] LABS: BASOPHILS % (AUTO) 0.7 % (0.0-2.0); EOSINOPHILS % (AUTO) 0.1 % (0.0-3.0); HEMATOCRIT 37.1 % (42.0-52.0); HEMOGLOBIN 11.6 G/DL (14.2-18.0); LYMPHOCYTES % (AUTO) 12.4 % (20.0-45.0); MEAN CORPUSCULAR VOLUME 104 FL (80-99); MONOCYTES % (AUTO) 13.4 % (1.0-10.0); NEUTROPHILS % (AUTO) 73.3 % (45.0-75.0); PLATELET COUNT 146 K/UL (150-450); RED BLOOD COUNT 3.56 M/UL (4.70-6.10); RED CELL DISTRIBUTION WIDTH 14.8 % (11.6-14.8); WHITE BLOOD COUNT 12.7 K/UL (4.8-10.8)
[2020-06-17 10:50] LABS: ALANINE AMINOTRANSFERASE 53 U/L (12-78); ALBUMIN 1.8 G/DL (3.4-5.0); ALBUMIN/GLOBULIN RATIO 0.4 (1.0-2.7); ALKALINE PHOSPHATASE 97 U/L (46-116); ANION GAP 9 mmol/L (5-15); ASPARTATE AMINO TRANSFERASE 41 U/L (15-37); BILIRUBIN,TOTAL 0.3 MG/DL (0.2-1.0); BLOOD UREA NITROGEN 37 mg/dL (7-18); CALCIUM 7.7 MG/DL (8.5-10.1); CARBON DIOXIDE 29 MMOL/L (21-32); CHLORIDE 112 MMOL/L (98-107); CREATININE 0.9 MG/DL (0.55-1.30); POTASSIUM 3.9 MMOL/L (3.5-5.1); SODIUM 150 MMOL/L (136-145)
[2020-06-17 12:00] VITALS: BP 101/46
--- NOTE | 2020-06-17 13:11 | Internal Med Progress Note ---
Subjective Date of Service: Jun 17, 2020 Physician Name Amor Berg Attending Physician Jasen Steward MD Current Medications Medications (Trade) Dose Ordered Sig/Eddy Route PRN Reason Start Time Stop Time Status Last Admin Dose Admin Acetaminophen (Tylenol) 650 mg Q6H PRN RECTAL Temp >100.5/Mild Pain (1-3) 06/09/20 08:00 07/09/20 07:59 06/16/20 22:39 Albuterol/ Ipratropium (Albuterol/ Ipratropium) 3 ml Q4H PRN HHN Shortness of Breath 06/13/20 17:09 06/18/20 17:08 Chlorhexidine Gluconate (Tesha-Hex 2%) 1 applic BEDTIME TOPIC 06/09/20 21:00 09/07/20 20:59 06/16/20 20:10 Levetiracetam 100 ml @ 400 mls/hr Q12HR IVPB 06/09/20 09:30 09/07/20 09:29 06/17/20 08:56 Levothyroxine Sodium (Synthroid) 88 mcg DAILY@0630 GT 06/09/20 09:00 07/09/20 08:59 06/17/20 06:10 Piperacillin Sod/ Tazobactam Sod 3.375 gm/Sodium Chloride 110 ml @ 27.5 mls/hr EVERY 8 HOURS IVPB 06/17/20 14:00 06/22/20 13:59 Zinc Oxide (Zinc Oxide) 1 applic THREE TIMES A DAY TOPIC 06/09/20 10:00 09/07/20 09:59 06/17/20 12:13 Allergies: Coded Allergies: SULFA (SULFONAMIDE ANTIBIOTICS) (Verified Allergy, Unknown, 09/02/15) ROS Limited/Unobtainable: Yes Subjective 69 YO M with history of Down's syndrome and dysphagia admitted with G-tube malfunction. S/P G-tube replaced in ER. Cover for Int Med-Dr Steward. On nonrebreather mask Objective Last Vital Signs Date Time Temp Pulse Resp B/P (MAP) Pulse Ox O2 Delivery O2 Flow Rate FiO2 06/17/20 12:00 98.2 114 18 101/46 (64) 99 06/17/20 08:28 Non-Rebreather 15.0 100 Laboratory Tests Test 06/17/20 09:30 White Blood Count 12.7 K/UL (4.8-10.8) H Red Blood Count 3.56 M/UL (4.70-6.10) L Hemoglobin 11.6 G/DL (14.2-18.0) L Hematocrit 37.1 % (42.0-52.0) L Mean Corpuscular Volume 104 FL (80-99) H Mean Corpuscular Hemoglobin 32.4 PG (27.0-31.0) H Mean Corpuscular Hemoglobin Concent 31.1 G/DL (32.0-36.0) L Red Cell Distribution Width 14.8 % (11.6-14.8) Platelet Count 146 K/UL (150-450) L Mean Platelet Volume 10.5 FL (6.5-10.1) H Neutrophils (%) (Auto) 73.3 % (45.0-75.0) Lymphocytes (%) (Auto) 12.4 % (20.0-45.0) L Monocytes (%) (Auto) 13.4 % (1.0-10.0) H Eosinophils (%) (Auto) 0.1 % (0.0-3.0) Basophils (%) (Auto) 0.7 % (0.0-2.0) Sodium Level 150 MMOL/L (136-145) H Potassium Level 3.9 MMOL/L (3.5-5.1) Chloride Level 112 MMOL/L (98-107) H Carbon Dioxide Level 29 MMOL/L (21-32) Anion Gap 9 mmol/L (5-15) Blood Urea Nitrogen 37 mg/dL (7-18) H Creatinine 0.9 MG/DL (0.55-1.30) Estimat Glomerular Filtration Rate > 60 mL/min (>60) Glucose Level 130 MG/DL (74-106) H Calcium Level 7.7 MG/DL (8.5-10.1) L Total Bilirubin 0.3 MG/DL (0.2-1.0) Aspartate Amino Transf (AST/SGOT) 41 U/L (15-37) H Alanine Aminotransferase (ALT/SGPT) 53 U/L (12-78) Alkaline Phosphatase 97 U/L (46-116) Total Protein 6.8 G/DL (6.4-8.2) Albumin 1.8 G/DL (3.4-5.0) L Globulin 5.0 g/dL Albumin/Globulin Ratio 0.4 (1.0-2.7) L Microbiology Date/Time Source Procedure Growth Status 06/15/20 11:00 Nasopharynx Coronavirus COVID-19 PCR ([facility]) - Final Complete Intake and Output 06/16/20 06/17/20 19:00 07:00 Intake Total 1255 ml 595 ml Output Total 350 ml Balance 905 ml 595 ml Free Water 100 ml Tube Feeding 55 ml 495 ml Other 1200 ml Output Urine Total 350 ml Objective PHYSICAL EXAMINATION: GENERAL: Patient is well-developed, well-nourished male, in no apparent distress. HEENT: Eyes, pupils are equal and responsive to light and accommodation. Extraocular movements are intact. NECK: Supple. No lymphadenopathy. CHEST: non rebreather mask; Lungs are clear to auscultation bilaterally without wheezes or rales. CARDIOVASCULAR: Regular rhythm and rate. S1, S2 are normal without murmurs, rubs, or gallops. ABDOMEN: Soft, nontender, nondistended. Positive bowel sounds. No evidence of hepatosplenomegaly. Currently, no rebound or guarding noted. EXTREMITIES: Negative for clubbing, cyanosis, or edema. RECTAL/GENITAL: Not performed. NEUROLOGIC: Cranial nerves II through XII grossly intact without focal deficits. Assessment/Plan Assessment/Plan ASSESSMENT: This is a 69-year-old male. 1. Gastrostomy tube malfunction. 2. Down syndrome. 3. Congestive heart failure. 4. Mental retardation. 5. Chronic subdural hematoma. 6. Cerebrovascular disease, status post cerebrovascular accident. 7. Dysphagia. 8. Right bundle-branch block. 9. Hypertension. 10. Seizure disorder. 11. Hypercholesterolemia. TREATMENT: 1. Malfunction of gastrostomy tube. S/P G-tube replaced in emerg room on 06/09/20. A Gastroenterology consultation= Dr. Chapin Berger. Follow recommendations of Gastroenterology. Tube feedings have been restarted 2. Hypertension. Continue metoprolol as above. 3. Seizure disorder. Continue Keppra as above. 4. Hypercholesterolemia. Continue atorvastatin as above. 5. Down syndrome. 6. Congestive heart failure. 7. Mental retardation. 8. Chronic subdural hematoma. 9. Cerebrovascular disease, status post cerebrovascular accident. 10. Dysphagia. 11. Right bundle-branch block. 12. discharge planning 13. Code status=DNR/DNI Amor Berg MD Jun 17, 2020 13:11
--- NOTE | 2020-06-17 13:21 | Surgery Progress Note ---
Surgery Progress Note Subjective Symptoms: improved, tolerating diet, passing flatus Objective Last 24 Hour Vital Signs Date Time Temp Pulse Resp B/P (MAP) Pulse Ox O2 Delivery O2 Flow Rate FiO2 06/17/20 12:00 98.2 114 18 101/46 (64) 99 06/17/20 08:28 98 18 98 Non-Rebreather 15.0 100 06/17/20 08:00 98.4 111 19 112/65 (81) 95 06/17/20 04:00 97.5 112 24 95/64 (74) 97 06/17/20 02:00 99.1 06/17/20 00:33 101.7 127 23 100/68 (79) 95 06/16/20 23:09 102.0 06/16/20 21:00 Non-Rebreather 15.0 06/16/20 20:00 100.4 130 24 113/65 (81) 90 06/16/20 16:00 98.1 132 24 132/62 (85) 91 I&O Intake and Output 06/16/20 06/17/20 19:00 07:00 Intake Total 1255 ml 595 ml Output Total 350 ml Balance 905 ml 595 ml Free Water 100 ml Tube Feeding 55 ml 495 ml Other 1200 ml Output Urine Total 350 ml Dressing: saturated Cardiovascular: RSR Respiratory: decreased breath sounds Abdomen: soft, flat, non-tender, present bowel sounds Extremities: no edema, no tenderness, no cyanosis Laboratory Tests Test 06/17/20 09:30 White Blood Count 12.7 K/UL (4.8-10.8) H Red Blood Count 3.56 M/UL (4.70-6.10) L Hemoglobin 11.6 G/DL (14.2-18.0) L Hematocrit 37.1 % (42.0-52.0) L Mean Corpuscular Volume 104 FL (80-99) H Mean Corpuscular Hemoglobin 32.4 PG (27.0-31.0) H Mean Corpuscular Hemoglobin Concent 31.1 G/DL (32.0-36.0) L Red Cell Distribution Width 14.8 % (11.6-14.8) Platelet Count 146 K/UL (150-450) L Mean Platelet Volume 10.5 FL (6.5-10.1) H Neutrophils (%) (Auto) 73.3 % (45.0-75.0) Lymphocytes (%) (Auto) 12.4 % (20.0-45.0) L Monocytes (%) (Auto) 13.4 % (1.0-10.0) H Eosinophils (%) (Auto) 0.1 % (0.0-3.0) Basophils (%) (Auto) 0.7 % (0.0-2.0) Sodium Level 150 MMOL/L (136-145) H Potassium Level 3.9 MMOL/L (3.5-5.1) Chloride Level 112 MMOL/L (98-107) H Carbon Dioxide Level 29 MMOL/L (21-32) Anion Gap 9 mmol/L (5-15) Blood Urea Nitrogen 37 mg/dL (7-18) H Creatinine 0.9 MG/DL (0.55-1.30) Estimat Glomerular Filtration Rate > 60 mL/min (>60) Glucose Level 130 MG/DL (74-106) H Calcium Level 7.7 MG/DL (8.5-10.1) L Total Bilirubin 0.3 MG/DL (0.2-1.0) Aspartate Amino Transf (AST/SGOT) 41 U/L (15-37) H Alanine Aminotransferase (ALT/SGPT) 53 U/L (12-78) Alkaline Phosphatase 97 U/L (46-116) Total Protein 6.8 G/DL (6.4-8.2) Albumin 1.8 G/DL (3.4-5.0) L Globulin 5.0 g/dL Albumin/Globulin Ratio 0.4 (1.0-2.7) L Plan Problems: (1) Malfunction of gastrostomy tube Assessment & Plan: 69-year-old male with recent traumatic G-tube insertion i dentified bleeding at the time since now hemostatic. G-tube reinserted by emergency department check by GI appropriate placement identified. KUB noted. Periwound maceration identified zinc oxide applied. Local wound care will be continued. Okay to use feeding tube at this time. Will follow with recommendations thank you GT exuding large amt sanguineous exudate with several small clots noted. Formula also noted to be mixed with sanguineous exudate. Peristomal skin is less erythematous in comparison to initial assessment. Peristomal skin is more pink and denuded. Discussed skin findings with and treatment amended to Zinc Oxide Paste with Calcium Alginate and Optifoam drsg Daily and prn. Tx.Plan: Wash Peristomal Gt with Soap and water. Saab dry. Apply Zinc Oxide Paste. Apply Maxsorb drsg. Cover with Optifoam drsg. Change Daily and prn. DAILY ESTIMATED NEEDS: Needs based on Pulmonary, wound, wt loss 48.6kg 30-35 kcals/kg 8898-9312 total kcals 1.25-1.5 g protein/kg 61-73 g total protein 25-30 mL/kg 8097-2815 total fluid mLs NUTRITION DIAGNOSIS: Difficulty swallowing r/t dysphagia as evidenced by pt is PEG dep for all nutritional needs. 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 multiple small blotchy areas. area of resolving wound noted cephalad. Incontinence associated dermatitis perineal area and buttocks, erythema noted. Intact serous blister noted to posterior L tibia,surrounding skin is pink and intact. Stable brown eschar noted to L heel(L)0.7cm x (W)0.9cm.Periwound without erythema or fluctuance. R heel boggy but blanchable.Diffused red rash noted to bilat lower ext. No other areas of skin concerns noted. Tx.Plan: Apply Triad to Buttocks and groin areas with each perineal care. Apply Cavilon Skin barrier to both heels .Off-load heels with pillow. Reposition at least every 2hours or as tolerated. Support surface mattress. Joselito Dorman Jun 17, 2020 13:21
--- NOTE | 2020-06-17 13:48 | NUR ---
NURSE NOTES: It was not able to blood draw back from PICC line. Called Dr. Murphy and is aware.
[2020-06-17] MEDS: Piperacillin/Tazobactam 3.375 GM in NS 110 ML IVPB SCH ×2 (14:03→21:36)
[2020-06-17 16:00] VITALS: BP 95/52
[2020-06-17] MEDS ORDERED: Albuterol/Ipratropium 3ml neb HHN PRN (17:45)
--- NOTE | 2020-06-17 18:24 | NUR ---
NURSE NOTES: Dressing was soaking with blood and GT is in placed. Dressing was changed as MD ordered and informed Dr. Berger. MD is aware.
--- NOTE | 2020-06-17 19:00 | NUR ---
NURSE HAND-OFF: Important Events on Shift: dressing was soaking with blood and Dr. Berger is aware Patient Status: stable Diet: Vital AF 1.2 @55ml/hr Pending Orders: n/a Pending Results/Labs:n/a Pending MD notification:n/a Latest Vital Signs: Temperature 97.9 , Pulse 95 , B/P 95 /52 , Respiratory Rate 18 , O2 SAT 97 , Room Air, O2 Flow Rate 15.0 . Vital Sign Comment: stable Latest Santillan Fall Score: 70 Fall Risk: High Risk Safety Measures: Call light Within Reach, Bed Alarm Zone 1, Side Rails Side Rails x3, Bed position Low and Locked. Fall Precautions: Yellow Socks Yellow Gown Door Sign Patient Fall Education Report given to CATALINA West.
--- NOTE | 2020-06-17 19:40 | NUR ---
NURSE NOTES: Received report from Raimundo. AAO x 0, non verbal, on non rebreather mask 15L. Pt GTube intact and running tube feeding. HOB elevated. Dressing around Gtube site d/c/i. Condom cath intact. PICC line intact. Bed locked, lowest position, side rails up, alarm on, call light within reach. Will continue to monitor.
[2020-06-17 20:00] VITALS: BP 97/53
[2020-06-17] MEDS: Dyna-Hex 2% Top Sol 2oz TOPIC SCH (20:22)
[2020-06-18] VITALS: BP 97/61
--- NOTE | 2020-06-18 02:14 | NUR ---
NURSE NOTES: Received report from [place] regarding gram - rods 08/[address] Murphy called @ [phone] and awaiting for call back. Addendum: 06/18/20 at 0611 by GAETANO FLORES RN RN NURSE NOTES: Tried 2nd attempt to notify Dr. Murphy. Spoke with Geoff, topper press operator. Addendum: 06/18/20 at 0640 by GAETANO FLORES RN RN NURSE NOTES: Received return call from Dr. Murphy and no new order received
[2020-06-18 04:00] VITALS: BP 95/59
[2020-06-18] MEDS: Acetaminophen 650 MG SUPP RECTAL PRN ×2 (04:14→12:39)
[2020-06-18] MEDS: Piperacillin/Tazobactam 3.375 GM in NS 110 ML IVPB SCH ×3 (05:35→21:00)
--- NOTE | 2020-06-18 06:12 | NUR ---
NURSE HAND-OFF: Important Events on Shift:blood culture result gram- rods, fever Patient Status: [] Diet: [] Pending Orders: [] Pending Results/Labs:[] Pending MD notification:[] Latest Vital Signs: Temperature 99.5 , Pulse 122 , B/P 95 /59 , Respiratory Rate 30 , O2 SAT 98 , Room Air, O2 Flow Rate 15.0 . Vital Sign Comment: [] Latest Santillan Fall Score: 70 Fall Risk: High Risk Safety Measures: Call light Within Reach, Bed Alarm Zone 1, Side Rails Side Rails x3, Bed position Low and Locked. Fall Precautions: Yellow Socks Yellow Gown Door Sign Patient Fall Education Addendum: 06/18/20 at 0729 by GAETANO FLORES RN RN Report given to Raimundo
[2020-06-18 06:25] LABS: BASOPHILS % (AUTO) 1.4 % (0.0-2.0); EOSINOPHILS % (AUTO) 0.7 % (0.0-3.0); HEMATOCRIT 43.6 % (42.0-52.0); HEMOGLOBIN 13.2 G/DL (14.2-18.0); LYMPHOCYTES % (AUTO) 14.9 % (20.0-45.0); MEAN CORPUSCULAR VOLUME 106 FL (80-99); MONOCYTES % (AUTO) 10.5 % (1.0-10.0); NEUTROPHILS % (AUTO) 72.6 % (45.0-75.0); PLATELET COUNT 120 K/UL (150-450); RED BLOOD COUNT 4.12 M/UL (4.70-6.10); RED CELL DISTRIBUTION WIDTH 15.4 % (11.6-14.8); WHITE BLOOD COUNT 11.6 K/UL (4.8-10.8)
--- NOTE | 2020-06-18 07:10 | NUR ---
NURSE NOTES: Received report from CATALINA West. Rounding done with outgoing nurse. Pt is asleep. Non rebreather mask 15L/min. Vital AF 1.2 @ 55ml/hr. G-tube dressing is intact. Condom catheter is in placed. LUAN PICC line is in placed. Zosyn is running at this time. Bed in lowest position, call light within reach. Will continue to monitor.
[2020-06-18 08:00] VITALS: BP 95/65
--- NOTE | 2020-06-18 08:12 | Infectious Diseases Prog Note ---
Assessment/Plan 69yo M with: GNR bacteremia Febrile to 100.4 - 102 Mild leukocytosis to 11 Hypoxia on 6L NC, r/o COVID - neg Erythema around PEG site Dark drainage from PEG 2/2 COVID PCR neg 06/13 CXR: 1. Interstitial opacities most prominent in the perihilar regions which may represent pulmonary vasculature congestion/edema. Probable small left pleural effusion. 2. Right-sided PICC line terminates in the region of the right axilla. Nonspecific thin linear density in the right hilar region. Question abandoned catheter fragment versus external artifact. 06/15 COVID PCR neg 06/17 BCx +GNRs Cr 0.8 Dysphagia s/p PEG with replacement in ED 06/09 Down syndrome CHF S/p CVA HTN HLD Seizure disorder Plan: Cont Zosyn #2 for GNR bacteremia, most likely 2/2 GI source given ?bleeding around PEG F/u 06/17 BCx +GNRs, narrow abx as able Appreciate GI input on copious dark drainage from PEG site causing skin irritation and possible cellulitis - ongoing drainage Trend WBC, temp curve 06/17 SP CTX #1 Monitor CBC/CMP Monitor resp status Monitor temp curve, hemodynamics D/w RN Thank you for this consult. [facility] will continue to follow. Subjective Allergies: Coded Allergies: SULFA (SULFONAMIDE ANTIBIOTICS) (Verified Allergy, Unknown, 09/02/15) Tmax 101.5, improved temp curve this morning WBC stable at 11 BCx +GNRs NAD on NRB mask Objective Last 24 Hour Vital Signs Date Time Temp Pulse Resp B/P (MAP) Pulse Ox O2 Delivery O2 Flow Rate FiO2 06/18/20 04:44 99.5 06/18/20 04:00 101.5 122 30 95/59 (71) 98 06/18/20 00:00 98.2 118 28 97/61 (73) 98 06/17/20 21:00 Non-Rebreather 15.0 06/17/20 20:00 97.9 117 32 97/53 (68) 98 06/17/20 19:04 95 18 97 Non-Rebreather 15.0 100 06/17/20 16:00 97.9 117 19 95/52 (66) 98 06/17/20 12:00 98.2 114 18 101/46 (64) 99 06/17/20 09:00 Non-Rebreather 15.0 06/17/20 08:28 98 18 98 Non-Rebreather 15.0 100 Height (Feet): 5 Height (Inches): 4.00 Weight (Pounds): 133 Gen: NAD in bed HEENT: NCAT CV: RRR Pulm: CTAB Abd: Soft, NTND + PEG w/ dark drainage around site ongoing Ext: No c/c/e Neuro: Not interactive Microbiology Date/Time Source Procedure Growth Status 06/17/20 09:30 Blood Blood Culture - Preliminary Resulted 06/17/20 09:20 Blood Blood Culture - Preliminary Resulted 06/15/20 11:00 Nasopharynx Coronavirus COVID-19 PCR (PATRICA) - Final Complete Laboratory Tests Test 06/17/20 09:30 06/18/20 05:10 White Blood Count 12.7 K/UL (4.8-10.8) H 11.6 K/UL (4.8-10.8) H Red Blood Count 3.56 M/UL (4.70-6.10) L 4.12 M/UL (4.70-6.10) L Hemoglobin 11.6 G/DL (14.2-18.0) L 13.2 G/DL (14.2-18.0) L Hematocrit 37.1 % (42.0-52.0) L 43.6 % (42.0-52.0) Mean Corpuscular Volume 104 FL (80-99) H 106 FL (80-99) H Mean Corpuscular Hemoglobin 32.4 PG (27.0-31.0) H 32.0 PG (27.0-31.0) H Mean Corpuscular Hemoglobin Concent 31.1 G/DL (32.0-36.0) L 30.2 G/DL (32.0-36.0) L Red Cell Distribution Width 14.8 % (11.6-14.8) 15.4 % (11.6-14.8) H Platelet Count 146 K/UL (150-450) L 120 K/UL (150-450) L Mean Platelet Volume 10.5 FL (6.5-10.1) H 10.4 FL (6.5-10.1) H Neutrophils (%) (Auto) 73.3 % (45.0-75.0) 72.6 % (45.0-75.0) Lymphocytes (%) (Auto) 12.4 % (20.0-45.0) L 14.9 % (20.0-45.0) L Monocytes (%) (Auto) 13.4 % (1.0-10.0) H 10.5 % (1.0-10.0) H Eosinophils (%) (Auto) 0.1 % (0.0-3.0) 0.7 % (0.0-3.0) Basophils (%) (Auto) 0.7 % (0.0-2.0) 1.4 % (0.0-2.0) Sodium Level 150 MMOL/L (136-145) H Potassium Level 3.9 MMOL/L (3.5-5.1) Chloride Level 112 MMOL/L (98-107) H Carbon Dioxide Level 29 MMOL/L (21-32) Anion Gap 9 mmol/L (5-15) Blood Urea Nitrogen 37 mg/dL (7-18) H Creatinine 0.9 MG/DL (0.55-1.30) Estimat Glomerular Filtration Rate > 60 mL/min (>60) Glucose Level 130 MG/DL (74-106) H Calcium Level 7.7 MG/DL (8.5-10.1) L Total Bilirubin 0.3 MG/DL (0.2-1.0) Aspartate Amino Transf (AST/SGOT) 41 U/L (15-37) H Alanine Aminotransferase (ALT/SGPT) 53 U/L (12-78) Alkaline Phosphatase 97 U/L (46-116) Total Protein 6.8 G/DL (6.4-8.2) Albumin 1.8 G/DL (3.4-5.0) L Globulin 5.0 g/dL Albumin/Globulin Ratio 0.4 (1.0-2.7) L Current Medications Medications (Trade) Dose Ordered Sig/Eddy Route PRN Reason Start Time Stop Time Status Last Admin Dose Admin Acetaminophen (Tylenol) 650 mg Q6H PRN RECTAL Temp >100.5/Mild Pain (1-3) 06/09/20 08:00 07/09/20 07:59 06/18/20 04:14 Albuterol/ Ipratropium (Albuterol/ Ipratropium) 3 ml Q4H PRN HHN Shortness of Breath 06/17/20 17:45 06/22/20 17:44 Chlorhexidine Gluconate (Tesha-Hex 2%) 1 applic BEDTIME TOPIC 06/09/20 21:00 09/07/20 20:59 06/17/20 20:22 Levetiracetam 100 ml @ 400 mls/hr Q12HR IVPB 06/09/20 09:30 09/07/20 09:29 06/17/20 20:22 Levothyroxine Sodium (Synthroid) 88 mcg DAILY@0630 GT 06/09/20 09:00 07/09/20 08:59 06/18/20 05:35 Piperacillin Sod/ Tazobactam Sod 3.375 gm/Sodium Chloride 110 ml @ 27.5 mls/hr EVERY 8 HOURS IVPB 06/17/20 14:00 06/22/20 13:59 06/18/20 05:35 Zinc Oxide (Zinc Oxide) 1 applic THREE TIMES A DAY TOPIC 06/09/20 10:00 09/07/20 09:59 06/17/20 17:46 Caryn Murphy M.D. Jun 18, 2020 08:11
[2020-06-18] MEDS: Zinc Oxide Oint 2oz TOPIC SCH ×3 (08:50→17:42)
[2020-06-18] MEDS: levETIRAcetam 500mg/NS100ml 100 ML IVPB SCH ×2 (08:50→20:43)
[2020-06-18 11:58] LABS: ANION GAP 6 mmol/L (5-15); BLOOD UREA NITROGEN 35 mg/dL (7-18); CALCIUM 8.4 MG/DL (8.5-10.1); CARBON DIOXIDE 30 MMOL/L (21-32); CHLORIDE 117 MMOL/L (98-107); POTASSIUM 4.2 MMOL/L (3.5-5.1); SODIUM 153 MMOL/L (136-145)
[2020-06-18 12:00] VITALS: BP 100/57
--- NOTE | 2020-06-18 12:42 | General Progress Note ---
Subjective ROS Limited/Unobtainable: No Allergies: Coded Allergies: SULFA (SULFONAMIDE ANTIBIOTICS) (Verified Allergy, Unknown, 09/02/15) Objective Last 24 Hour Vital Signs Date Time Temp Pulse Resp B/P (MAP) Pulse Ox O2 Delivery O2 Flow Rate FiO2 06/18/20 12:00 100.4 110 20 100/57 (71) 97 06/18/20 10:09 95 18 95 Non-Rebreather 15.0 100 06/18/20 09:00 Non-Rebreather 15.0 06/18/20 08:00 99.9 120 22 95/65 (75) 93 06/18/20 04:44 99.5 06/18/20 04:00 101.5 122 30 95/59 (71) 98 06/18/20 00:00 98.2 118 28 97/61 (73) 98 06/17/20 21:00 Non-Rebreather 15.0 06/17/20 20:00 97.9 117 32 97/53 (68) 98 06/17/20 19:04 95 18 97 Non-Rebreather 15.0 100 06/17/20 16:00 97.9 117 19 95/52 (66) 98 Intake and Output 06/17/20 06/18/20 19:00 07:00 Intake Total 1070 ml 805 ml Output Total 300 ml Balance 770 ml 805 ml Free Water 200 ml 200 ml IV Total 210 ml Tube Feeding 660 ml 605 ml Output Urine Total 300 ml # Voids 1 Laboratory Tests 06/18/20 05:10: White Blood Count 11.6H, Red Blood Count 4.12L, Hemoglobin 13.2L, Hematocrit 43.6, Mean Corpuscular Volume 106H, Mean Corpuscular Hemoglobin 32.0H, Mean Corpuscular Hemoglobin Concent 30.2L, Red Cell Distribution Width 15.4H, Platelet Count 120L, Mean Platelet Volume 10.4H, Neutrophils (%) (Auto) 72.6, Lymphocytes (%) (Auto) 14.9L, Monocytes (%) (Auto) 10.5H, Eosinophils (%) (Auto) 0.7, Basophils (%) (Auto) 1.4 06/18/20 11:05: Sodium Level 153H, Potassium Level 4.2, Chloride Level 117H, Carbon Dioxide Level 30, Anion Gap 6, Blood Urea Nitrogen 35H, Creatinine 1.0, Estimat Glomeru lar Filtration Rate > 60, Glucose Level 134H, Calcium Level 8.4L Height (Feet): 5 Height (Inches): 4.00 Weight (Pounds): 133 General Appearance: no apparent distress EENT: normal ENT inspection Neck: supple Cardiovascular: normal rate Respiratory/Chest: decreased breath sounds Abdomen: hypoactive bowel sounds Extremities: non-tender Assessment/Plan Assessment/Plan: 1. Down syndrome. 2. CHF. 3. Dysphagia with G-tube. 4. History of constipation. GTF GT care talib GT care Chapin Berger MD Jun 18, 2020 12:42
--- NOTE | 2020-06-18 13:26 | Surgery Progress Note ---
Surgery Progress Note Subjective Symptoms: improved, tolerating diet, voiding well, passing flatus, BM Objective Last 24 Hour Vital Signs Date Time Temp Pulse Resp B/P (MAP) Pulse Ox O2 Delivery O2 Flow Rate FiO2 06/18/20 12:00 100.4 110 20 100/57 (71) 97 06/18/20 10:09 95 18 95 Non-Rebreather 15.0 100 06/18/20 09:00 Non-Rebreather 15.0 06/18/20 08:00 99.9 120 22 95/65 (75) 93 06/18/20 04:44 99.5 06/18/20 04:00 101.5 122 30 95/59 (71) 98 06/18/20 00:00 98.2 118 28 97/61 (73) 98 06/17/20 21:00 Non-Rebreather 15.0 06/17/20 20:00 97.9 117 32 97/53 (68) 98 06/17/20 19:04 95 18 97 Non-Rebreather 15.0 100 06/17/20 16:00 97.9 117 19 95/52 (66) 98 I&O Intake and Output 06/17/20 06/18/20 19:00 07:00 Intake Total 1070 ml 805 ml Output Total 300 ml Balance 770 ml 805 ml Free Water 200 ml 200 ml IV Total 210 ml Tube Feeding 660 ml 605 ml Output Urine Total 300 ml # Voids 1 Dressing: saturated Cardiovascular: RSR Respiratory: decreased breath sounds Abdomen: soft, non-tender, present bowel sounds, non-distended Extremities: no edema, no tenderness, no cyanosis Laboratory Tests Test 06/18/20 05:10 06/18/20 11:05 White Blood Count 11.6 K/UL (4.8-10.8) H Red Blood Count 4.12 M/UL (4.70-6.10) L Hemoglobin 13.2 G/DL (14.2-18.0) L Hematocrit 43.6 % (42.0-52.0) Mean Corpuscular Volume 106 FL (80-99) H Mean Corpuscular Hemoglobin 32.0 PG (27.0-31.0) H Mean Corpuscular Hemoglobin Concent 30.2 G/DL (32.0-36.0) L Red Cell Distribution Width 15.4 % (11.6-14.8) H Platelet Count 120 K/UL (150-450) L Mean Platelet Volume 10.4 FL (6.5-10.1) H Neutrophils (%) (Auto) 72.6 % (45.0-75.0) Lymphocytes (%) (Auto) 14.9 % (20.0-45.0) L Monocytes (%) (Auto) 10.5 % (1.0-10.0) H Eosinophils (%) (Auto) 0.7 % (0.0-3.0) Basophils (%) (Auto) 1.4 % (0.0-2.0) Sodium Level 153 MMOL/L (136-145) H Potassium Level 4.2 MMOL/L (3.5-5.1) Chloride Level 117 MMOL/L (98-107) H Carbon Dioxide Level 30 MMOL/L (21-32) Anion Gap 6 mmol/L (5-15) Blood Urea Nitrogen 35 mg/dL (7-18) H Creatinine 1.0 MG/DL (0.55-1.30) Estimat Glomerular Filtration Rate > 60 mL/min (>60) Glucose Level 134 MG/DL (74-106) H Calcium Level 8.4 MG/DL (8.5-10.1) L Plan Problems: (1) Malfunction of gastrostomy tube Assessment & Plan: 69-year-old male with recent traumatic G-tube insertion identified bleeding at the time since now hemostatic. G-tube reinserted by emergency department check by GI appropriate placement identified. KUB noted. Periwound maceration identified zinc oxide applied. Local wound care will be continued. Okay to use feeding tube at this time. Will follow with recommendations thank you GT exuding large amt sanguineous exudate with several small clots noted. Formula also noted to be mixed with sanguineous exudate. Peristomal skin is less erythematous in comparison to initial assessment. Peristomal skin is more pink and denuded. Discussed skin findings with and treatment amended to Zinc Oxide Paste with Calcium Alginate and Optifoam drsg Daily and prn. Tx.Plan: Wash Peristomal Gt with Soap and water. Saab dry. Apply Zinc Oxide Paste. Apply Maxsorb drsg. Cover with Optifoam drsg. Change Daily and prn. DAILY ESTIMATED NEEDS: Needs based on Pulmonary, wound, wt loss 48.6kg 30-35 kcals/kg 6906-3041 total kcals 1.25-1.5 g protein/kg 61-73 g total protein 25-30 mL/kg [id number] total fluid mLs NUTRITION DIAGNOSIS: Difficulty swallowing r/t dysphagia as evidenced by pt is PEG dep for all nutritional needs. 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 mult iple small blotchy areas. area of resolving wound noted cephalad. Incontinence associated dermatitis perineal area and buttocks, erythema noted. Intact serous blister noted to posterior L tibia,surrounding skin is pink and intact. Stable brown eschar noted to L heel(L)0.7cm x (W)0.9cm.Periwound without erythema or fluctuance. R heel boggy but blanchable.Diffused red rash noted to bilat lower ext. No other areas of skin concerns noted. Tx.Plan: Apply Triad to Buttocks and groin areas with each perineal care. Apply Cavilon Skin barrier to both heels .Off-load heels with pillow. Reposition at least every 2hours or as tolerated. Support surface mattress. Joselito Dorman Jun 18, 2020 13:26
--- NOTE | 2020-06-18 13:52 | Internal Med Progress Note ---
Subjective Physician Name Jasen Steward Attending Physician Jasen Steward MD Current Medications Medications (Trade) Dose Ordered Sig/Eddy Route PRN Reason Start Time Stop Time Status Last Admin Dose Admin Acetaminophen (Tylenol) 650 mg Q6H PRN RECTAL Temp >100.5/Mild Pain (1-3) 06/09/20 08:00 07/09/20 07:59 06/18/20 12:39 Albuterol/ Ipratropium (Albuterol/ Ipratropium) 3 ml Q4H PRN HHN Shortness of Breath 06/17/20 17:45 06/22/20 17:44 Chlorhexidine Gluconate (Tesha-Hex 2%) 1 applic BEDTIME TOPIC 06/09/20 21:00 09/07/20 20:59 06/17/20 20:22 Levetiracetam 100 ml @ 400 mls/hr Q12HR IVPB 06/09/20 09:30 09/07/20 09:29 06/18/20 08:50 Levothyroxine Sodium (Synthroid) 88 mcg DAILY@0630 GT 06/09/20 09:00 07/09/20 08:59 06/18/20 05:35 Piperacillin Sod/ Tazobactam Sod 3.375 gm/Sodium Chloride 110 ml @ 27.5 mls/hr EVERY 8 HOURS IVPB 06/17/20 14:00 06/22/20 13:59 06/18/20 05:35 Zinc Oxide (Zinc Oxide) 1 applic THREE TIMES A DAY TOPIC 06/09/20 10:00 09/07/20 09:59 06/18/20 12:39 Allergies: Coded Allergies: SULFA (SULFONAMIDE ANTIBIOTICS) (Verified Allergy, Unknown, 09/02/15) Subjective More responsivity to open his eyes, no acute distress.WBC: 11.6. Objective Last Vital Signs Date Time Temp Pulse Resp B/P (MAP) Pulse Ox O2 Delivery O2 Flow Rate FiO2 06/18/20 12:00 100.4 110 20 100/57 (71) 97 06/18/20 10:09 Non-Rebreather 15.0 100 Laboratory Tests Test 06/18/20 05:10 06/18/20 11:05 White Blood Count 11.6 K/UL (4.8-10.8) H Red Blood Count 4.12 M/UL (4.70-6.10) L Hemoglobin 13.2 G/DL (14.2-18.0) L Hematocrit 43.6 % (42.0-52.0) Mean Corpuscular Volume 106 FL (80-99) H Mean Corpuscular Hemoglobin 32.0 PG (27.0-31.0) H Mean Corpuscular Hemoglobin Concent 30.2 G/DL (32.0-36.0) L Red Cell Distribution Width 15.4 % (11.6-14.8) H Platelet Count 120 K/UL (150-450) L Mean Platelet Volume 10.4 FL (6.5-10.1) H Neutrophils (%) (Auto) 72.6 % (45.0-75.0) Lymphocytes (%) (Auto) 14.9 % (20.0-45.0) L Monocytes (%) (Auto) 10.5 % (1.0-10.0) H Eosinophils (%) (Auto) 0.7 % (0.0-3.0) Basophils (%) (Auto) 1.4 % (0.0-2.0) Sodium Level 153 MMOL/L (136-145) H Potassium Level 4.2 MMOL/L (3.5-5.1) Chloride Level 117 MMOL/L (98-107) H Carbon Dioxide Level 30 MMOL/L (21-32) Anion Gap 6 mmol/L (5-15) Blood Urea Nitrogen 35 mg/dL (7-18) H Creatinine 1.0 MG/DL (0.55-1.30) Estimat Glomerular Filtration Rate > 60 mL/min (>60) Glucose Level 134 MG/DL (74-106) H Calcium Level 8.4 MG/DL (8.5-10.1) L Microbiology Date/Time Source Procedure Growth Status 06/17/20 09:30 Blood Blood Culture - Preliminary Gram Negative Armando Resulted 06/17/20 09:20 Blood Blood Culture - Preliminary Gram Negative Armando Resulted Intake and Output 06/17/20 06/18/20 19:00 07:00 Intake Total 1070 ml 805 ml Output Total 300 ml Balance 770 ml 805 ml Free Water 200 ml 200 ml IV Total 210 ml Tube Feeding 660 ml 605 ml Output Urine Total 300 ml # Voids 1 Objective General: No acute distress, open his eyes. HEENT: NCAT, sclera anicteric, PERRL, Neck: Supple, no significant jugular venous distention, Lungs: fair inspiratory effort, decreased at bases, no Wheeze or Rales. Heart: Regular rate and rhythm, normal S1/S2, no murmurs Abdomen: soft, nontender, nondistended. Normoactive bowel sounds, PEG site is intact, / Rectal: Refused and deferred. Extremities: No Cyanosis , clubbing or edema. Neuro: limited secondary to patient's status, however moving upper extremities spontaneously Skin: warm, no rash. Assessment/Plan Assessment/Plan ASSESSMENT: This is a 69-year-old male. 1. Gastrostomy tube malfunction. 2. Down syndrome. 3. Congestive heart failure. 4. Mental retardation. 5. Chronic subdural hematoma. 6. Cerebrovascular disease, status post cerebrovascular accident. 7. Dysphagia. 8. Right bundle-branch block. 9. Hypertension. 10. Seizure disorder. 11. Hypercholesterolemia. 12. GNR bacteremia, most likely 2/2 GI source given ?bleeding around PEG TREATMENT: 1. Malfunction of gastrostomy tube. S/P G-tube replaced in emerg room on 06/09/20. A Gastroenterology consultation= Dr. Chapin Berger. Follow recommendations of Gastroenterology. Tube feedings have been restarted 2. Hypertension. Continue metoprolol as above. 3. Seizure disorder. Continue Keppra as above. 4. Hypercholesterolemia. Continue atorvastatin as above. 5. Down syndrome. 6. Congestive heart failure. 7. Mental retardation. 8. Chronic subdural hematoma. 9. Cerebrovascular disease, status post cerebrovascular accident. 10. Dysphagia. 11. Right bundle-branch block. Discharge planning to SNF Abx: Zosyn Follow-up with laboratory and cultures in AM. Jasen Steward MD Jun 18, 2020 13:51
[2020-06-18 16:00] VITALS: BP 101/54
--- NOTE | 2020-06-18 19:00 | NUR ---
NURSE HAND-OFF: Important Events on Shift:Changed GT dressing/PICC line dressing Patient Status: stable Diet: Vital AF 1.2 @55ml/hr Pending Orders: n/a Pending Results/Labs:n/a Pending MD notification:n/a Latest Vital Signs: Temperature 99.2 , Pulse 92 , B/P 101 /54 , Respiratory Rate 18 , O2 SAT 95 , Room Air, O2 Flow Rate 15.0 . Vital Sign Comment: stable Latest Santillan Fall Score: 70 Fall Risk: High Risk Safety Measures: Call light Within Reach, Bed Alarm Zone 1, Side Rails Side Rails x3, Bed position Low and Locked. Fall Precautions: Yellow Socks Yellow Gown Door Sign Patient Fall Education Report given to CATALINA Marti.
--- NOTE | 2020-06-18 19:10 | NUR ---
NURSE NOTES: Received report from CATALINA Eubanks. Pt is in bed on 15L of nonrebreather mask. No signs of distress. PICC in LUAN. Call light within reach, bed locked and in lowest position, side rails up x3. Will continue to monitor.
[2020-06-18 20:00] VITALS: BP 99/59
[2020-06-18] MEDS: Dyna-Hex 2% Top Sol 2oz TOPIC SCH (20:43)
[2020-06-19] VITALS: BP 120/62
[2020-06-19 04:00] VITALS: BP 109/65
[2020-06-19] MEDS: Piperacillin/Tazobactam 3.375 GM in NS 110 ML IVPB SCH (05:04)
--- NOTE | 2020-06-19 06:19 | General Progress Note ---
Subjective ROS Limited/Unobtainable: No Allergies: Coded Allergies: SULFA (SULFONAMIDE ANTIBIOTICS) (Verified Allergy, Unknown, 09/02/15) Objective Last 24 Hour Vital Signs Date Time Temp Pulse Resp B/P (MAP) Pulse Ox O2 Delivery O2 Flow Rate FiO2 06/19/20 04:00 98.6 118 24 109/65 (80) 97 06/19/20 00:00 98.7 113 22 120/62 (81) 96 06/18/20 21:00 Non-Rebreather 15.0 06/18/20 20:00 98.3 115 22 99/59 (72) 97 06/18/20 19:27 92 18 95 Non-Rebreather 15.0 100 06/18/20 16:00 99.2 117 18 101/54 (70) 96 06/18/20 13:09 100.4 06/18/20 12:00 100.4 110 20 100/57 (71) 97 06/18/20 10:09 95 18 95 Non-Rebreather 15.0 100 06/18/20 09:00 Non-Rebreather 15.0 06/18/20 08:00 99.9 120 22 95/65 (75) 93 Intake and Output 06/18/20 06/19/20 19:00 07:00 Intake Total 805 ml Output Total 600 ml Balance 205 ml Free Water 200 ml Tube Feeding 605 ml Output Urine Total 600 ml Laboratory Tests 06/18/20 11:05: Sodium Level 153H, Potassium Level 4.2, Chloride Level 117H, Carbon Dioxide Level 30, Anion Gap 6, Blood Urea Nitrogen 35H, Creatinine 1.0, Estimat Glomerular Filtration Rate > 60, Glucose Level 134H, Calcium Level 8.4L Height (Feet): 5 Height (Inches): 4.00 Weight (Pounds): 133 General Appearance: no apparent distress EENT: normal ENT inspection Neck: supple Cardiovascular: normal rate Respiratory/Chest: decreased breath sounds Abdomen: hypoactive bowel sounds Extremities: non-tender Assessment/Plan Assessment/Plan: 1. Down syndrome. 2. CHF. 3. Dysphagia with G-tube. 4. History of constipation. GTF GT care talib GT care Chapin Berger MD Jun 19, 2020 06:19
--- NOTE | 2020-06-19 07:09 | NUR ---
NURSE HAND-OFF: Important Events on Shift: No BM, nonrebreather at 15L Patient Status: sleeping Diet: Vital AF 1.2 at 55ml/hr Pending Orders: Pending Results/Labs: Pending MD notification: Latest Vital Signs: Temperature 98.6 , Pulse 118 , B/P 109 /65 , Respiratory Rate 24 , O2 SAT 97 , Room Air, O2 Flow Rate 15.0 . Vital Sign Comment: VSS Latest Santillan Fall Score: 70 Fall Risk: High Risk Safety Measures: Call light Within Reach, Bed Alarm Zone 1, Side Rails Side Rails x3, Bed position Low and Locked. Fall Precautions: Yellow Socks Yellow Gown Door Sign Patient Fall Education Report given to CATALINA Villanueva.
--- NOTE | 2020-06-19 07:30 | NUR ---
NURSE NOTES: Report received from Figueroa ARNOLD, rounds made. Patient sleeping, respirations labored/rapid on O2 15L non-rebreather mask, O2 sat 97-98%, HR 132-133, will call respiratory for treatment/suction. HOB elevated. NPO. Will provide oral mouth care. Vital AF 1.2 to GT at 55 ml/hr. GT dressing intact, will change as ordered. Condom cath in place. Bilateral SCDs on. Will provide skin care. Call light in reach, bed in lowest position, will continue to monitor. Addendum: 06/19/20 at 1919 by Kay Kelly RN Seizure precautions. Skin noted, dry/flaky.
--- NOTE | 2020-06-19 07:50 | Infectious Diseases Prog Note ---
Assessment/Plan 69yo M with: GNR bacteremia Febrile to 100.4 - 102 Mild leukocytosis to 11 Hypoxia on 6L NC, r/o COVID - neg Erythema around PEG site Dark drainage from PEG 06/09 COVID PCR neg 06/13 CXR: 1. Interstitial opacities most prominent in the perihilar regions which may represent pulmonary vasculature congestion/edema. Probable small left pleural effusion. 2. Right-sided PICC line terminates in the region of the right axilla. Nonspecific thin linear density in the right hilar region. Question abandoned catheter fragment versus external artifact. 06/15 COVID PCR neg 06/17 BCx +GNRs 06/19 BCx ordered Cr 0.8 Dysphagia s/p PEG with replacement in ED 06/09 Down syndrome CHF S/p CVA HTN HLD Seizure disorder Plan: Broaden to meropenem given ongoing fevers, leukocytosis Stop Zosyn #3 for GNR bacteremia, most likely 2/2 GI source given ?bleeding around PEG Repeat BCx today given ongoing fever, leukocytosis F/u 06/17 BCx +GNRs, narrow abx as able Appreciate GI input on copious dark drainage from PEG site causing skin irritation and possible cellulitis - ongoing drainage Trend WBC, temp curve 06/17 SP CTX #1 Monitor CBC/CMP Monitor resp status Monitor temp curve, hemodynamics D/w RN and lab at length Thank you for this consult. [facility] will continue to follow. Subjective Allergies: Coded Allergies: SULFA (SULFONAMIDE ANTIBIOTICS) (Verified Allergy, Unknown, 09/02/15) Febrile again today to 102 96% on NRB mask NAD in bed WBc up to 14 Objective Last 24 Hour Vital Signs Date Time Temp Pulse Resp B/P (MAP) Pulse Ox O2 Delivery O2 Flow Rate FiO2 06/19/20 04:00 98.6 118 24 109/65 (80) 97 06/19/20 00:00 98.7 113 22 120/62 (81) 96 06/18/20 21:00 Non-Rebreather 15.0 06/18/20 20:00 98.3 115 22 99/59 (72) 97 06/18/20 19:27 92 18 95 Non-Rebreather 15.0 100 06/18/20 16:00 99.2 117 18 101/54 (70) 96 06/18/20 13:09 100.4 06/18/20 12:00 100.4 110 20 100/57 (71) 97 06/18/20 10:09 95 18 95 Non-Rebreather 15.0 100 06/18/20 09:00 Non-Rebreather 15.0 06/18/20 08:00 99.9 120 22 95/65 (75) 93 Height (Feet): 5 Height (Inches): 4.00 Weight (Pounds): 133 Gen: NAD in bed HEENT: NCAT CV: RRR Pulm: CTAB Abd: Soft, NTND + PEG w/ dark drainage around site ongoing Ext: No c/c/e Neuro: Not interactive Microbiology Date/Time Source Procedure Growth Status 06/17/20 09:30 Blood Blood Culture - Preliminary Gram Negative Armando Resulted 06/17/20 09:20 Blood Blood Culture - Preliminary Gram Negative Armando Resulted Laboratory Tests Test 06/18/20 11:05 Sodium Level 153 MMOL/L (136-145) H Potassium Level 4.2 MMOL/L (3.5-5.1) Chloride Level 117 MMOL/L (98-107) H Carbon Dioxide Level 30 MMOL/L (21-32) Anion Gap 6 mmol/L (5-15) Blood Urea Nitrogen 35 mg/dL (7-18) H Creatinine 1.0 MG/DL (0.55-1.30) Estimat Glomerular Filtration Rate > 60 mL/min (>60) Glucose Level 134 MG/DL (74-106) H Calcium Level 8.4 MG/DL (8.5-10.1) L Current Medications Medications (Trade) Dose Ordered Sig/Eddy Route PRN Reason Start Time Stop Time Status Last Admin Dose Admin Acetaminophen (Tylenol) 650 mg Q6H PRN RECTAL Temp >100.5/Mild Pain (1-3) 06/09/20 08:00 07/09/20 07:59 06/18/20 12:39 Albuterol/ Ipratropium (Albuterol/ Ipratropium) 3 ml Q4H PRN HHN Shortness of Breath 06/17/20 17:45 06/22/20 17:44 Chlorhexidine Gluconate (Tesha-Hex 2%) 1 applic BEDTIME TOPIC 06/09/20 21:00 09/07/20 20:59 06/18/20 20:43 Levetiracetam 100 ml @ 400 mls/hr Q12HR IVPB 06/09/20 09:30 09/07/20 09:29 06/18/20 20:43 Levothyroxine Sodium (Synthroid) 88 mcg DAILY@0630 GT 06/09/20 09:00 07/09/20 08:59 06/19/20 05:33 Piperacillin Sod/ Tazobactam Sod 3.375 gm/Sodium Chloride 110 ml @ 27.5 mls/hr EVERY 8 HOURS IVPB 06/17/20 14:00 06/22/20 13:59 06/19/20 05:04 Zinc Oxide (Zinc Oxide) 1 applic THREE TIMES A DAY TOPIC 06/09/20 10:00 09/07/20 09:59 06/18/20 17:42 Caryn Murphy M.D. Jun 19, 2020 07:50
[2020-06-19 08:00] VITALS: BP 120/69
[2020-06-19 09:07] LABS: EOSINOPHILS % (AUTO) 0.4 % (0.0-3.0); HEMATOCRIT 42.7 % (42.0-52.0); HEMOGLOBIN 12.6 G/DL (14.2-18.0); LYMPHOCYTES % (AUTO) 11.3 % (20.0-45.0); MEAN CORPUSCULAR VOLUME 107 FL (80-99); MONOCYTES % (AUTO) 7.2 % (1.0-10.0); NEUTROPHILS % (AUTO) 80.2 % (45.0-75.0); PLATELET COUNT 231 K/UL (150-450); RED BLOOD COUNT 3.98 M/UL (4.70-6.10); RED CELL DISTRIBUTION WIDTH 15.5 % (11.6-14.8); WHITE BLOOD COUNT 14.7 K/UL (4.8-10.8)
--- NOTE | 2020-06-19 09:35 | NUR ---
RD ASSESSMENT & RECOMMENDATIONS SEE CARE ACTIVITY FOR COMPLETE ASSESSMENT DAILY ESTIMATED NEEDS: Needs based on cardiac, wound 63kg 25-30 kcals/kg 6553-8826 total kcals 1.25-1.5 g protein/kg 79-95 g total protein 25-30 mL/kg 3762-6234 total fluid mLs NUTRITION DIAGNOSIS: Difficulty swallowing r/t dysphagia as evidenced by pt is PEG dep for all nutritional needs. CURRENT TF:Vital AF 1.2 @ 55ml/hr ordered- held 2 hrs for Synthroid ENTERAL NUTRITION RECOMMENDATIONS: Glucerna 1.2 @ 60ml/hr x 22 hrs to provide 1320ml, 1584kcal, 79g prot, 1063ml free water - Elemental TF of Vital AF not indicated, rec Glucerna 1.2 for carb control. - Rec goal rate of 60ml, initiate @ 30ml/hrx 6hrs, advance 10ml q 4-6 hrs as tolerated to goal rate. - HOLD 1 Hr before and after synthroid meds- TF to run max 22 hrs - HOB over 30 degrees/ without IVF, h2o flush of 120ml q 6hrs ADDITIONAL RECOMMENDATIONS: 1) Calibrated bed scale wts weekly 2) Monitor lytes closely, replete as needed 3) Wound healing: TF @ goal will provide 100% RDI Add Camron BID via PEG 4) Check HgA1C, rec accuchecks/niss 5) rec to increase water deficits, Na and BUN trending up.
[2020-06-19 09:36] LABS: ALANINE AMINOTRANSFERASE 62 U/L (12-78); ALBUMIN 2.2 G/DL (3.4-5.0); ALBUMIN/GLOBULIN RATIO 0.4 (1.0-2.7); ALKALINE PHOSPHATASE 102 U/L (46-116); ANION GAP 8 mmol/L (5-15); ASPARTATE AMINO TRANSFERASE 38 U/L (15-37); BILIRUBIN,TOTAL 0.6 MG/DL (0.2-1.0); BLOOD UREA NITROGEN 34 mg/dL (7-18); CALCIUM 8.7 MG/DL (8.5-10.1); CARBON DIOXIDE 31 MMOL/L (21-32); CHLORIDE 116 MMOL/L (98-107); CREATININE 1.1 MG/DL (0.55-1.30); POTASSIUM 4.5 MMOL/L (3.5-5.1); SODIUM 155 MMOL/L (136-145)
[2020-06-19] MEDS: Zinc Oxide Oint 2oz TOPIC SCH ×3 (09:40→17:39)
[2020-06-19] MEDS: levETIRAcetam 500mg/NS100ml 100 ML IVPB SCH ×2 (09:40→21:15)
--- NOTE | 2020-06-19 10:06 | NUR ---
NURSE NOTES: Dr. Murphy notified of temperature 102.4, orders for Blood Culture x1. Will administer Tylenol suppository after BC obtained.
--- NOTE | 2020-06-19 11:00 | NUR ---
NURSE NOTES: Patient continues to have labored/rapid breathing, HR 133, O2 sat 98%, lung sounds congested. Dr. Steward at bedside. RT at bedside, provided oral mouth care, nasopharnax suction, oral mouth suction, and respiratory treatment. HOB remains elevated. Patient respirations improved.
[2020-06-19] MEDS: Acetaminophen 650 MG SUPP RECTAL PRN (11:22)
[2020-06-19 12:00] VITALS: BP 100/62
--- NOTE | 2020-06-19 12:50 | Internal Med Progress Note ---
Subjective Physician Name Jasen Steward Attending Physician Jasen Steward MD Current Medications Medications (Trade) Dose Ordered Sig/Eddy Route PRN Reason Start Time Stop Time Status Last Admin Dose Admin Acetaminophen (Tylenol) 650 mg Q6H PRN RECTAL Temp >100.5/Mild Pain (1-3) 06/09/20 08:00 07/09/20 07:59 06/19/20 11:22 Albuterol/ Ipratropium (Albuterol/ Ipratropium) 3 ml Q4H PRN HHN Shortness of Breath 06/17/20 17:45 06/22/20 17:44 06/19/20 10:50 Chlorhexidine Gluconate (Tesha-Hex 2%) 1 applic BEDTIME TOPIC 06/09/20 21:00 09/07/20 20:59 06/18/20 20:43 Levetiracetam 100 ml @ 400 mls/hr Q12HR IVPB 06/09/20 09:30 09/07/20 09:29 06/19/20 09:40 Levothyroxine Sodium (Synthroid) 88 mcg DAILY@0630 GT 06/09/20 09:00 07/09/20 08:59 06/19/20 05:33 Piperacillin Sod/ Tazobactam Sod 3.375 gm/Sodium Chloride 110 ml @ 27.5 mls/hr EVERY 8 HOURS IVPB 06/17/20 14:00 06/22/20 13:59 06/19/20 05:04 Zinc Oxide (Zinc Oxide) 1 applic THREE TIMES A DAY TOPIC 06/09/20 10:00 09/07/20 09:59 06/19/20 09:40 Allergies: Coded Allergies: SULFA (SULFONAMIDE ANTIBIOTICS) (Verified Allergy, Unknown, 09/02/15) Subjective in Respiratory distress, tachypnea, Not responsivity,WBC: 14.4. Objective Last Vital Signs Date Time Temp Pulse Resp B/P (MAP) Pulse Ox O2 Delivery O2 Flow Rate FiO2 06/19/20 09:45 102.4 06/19/20 08:00 126 24 120/69 (86) 94 06/19/20 07:50 Non-Rebreather 15.0 100 Laboratory Tests Test 06/19/20 08:50 White Blood Count 14.7 K/UL (4.8-10.8) H Red Blood Count 3.98 M/UL (4.70-6.10) L Hemoglobin 12.6 G/DL (14.2-18.0) L Hematocrit 42.7 % (42.0-52.0) Mean Corpuscular Volume 107 FL (80-99) H Mean Corpuscular Hemoglobin 31.7 PG (27.0-31.0) H Mean Corpuscular Hemoglobin Concent 29.6 G/DL (32.0-36.0) L Red Cell Distribution Width 15.5 % (11.6-14.8) H Platelet Count 231 K/UL (150-450) # Mean Platelet Volume 10.3 FL (6.5-10.1) H Neutrophils (%) (Auto) 80.2 % (45.0-75.0) H Lymphocytes (%) (Auto) 11.3 % (20.0-45.0) L Monocytes (%) (Auto) 7.2 % (1.0-10.0) Eosinophils (%) (Auto) 0.4 % (0.0-3.0) Basophils (%) (Auto) 1.0 % (0.0-2.0) Sodium Level 155 MMOL/L (136-145) H Potassium Level 4.5 MMOL/L (3.5-5.1) Chloride Level 116 MMOL/L (98-107) H Carbon Dioxide Level 31 MMOL/L (21-32) Anion Gap 8 mmol/L (5-15) Blood Urea Nitrogen 34 mg/dL (7-18) H Creatinine 1.1 MG/DL (0.55-1.30) Estimat Glomerular Filtration Rate > 60 mL/min (>60) Glucose Level 149 MG/DL (74-106) H Calcium Level 8.7 MG/DL (8.5-10.1) Total Bilirubin 0.6 MG/DL (0.2-1.0) Aspartate Amino Transf (AST/SGOT) 38 U/L (15-37) H Alanine Aminotransferase (ALT/SGPT) 62 U/L (12-78) Alkaline Phosphatase 102 U/L (46-116) Total Protein 7.9 G/DL (6.4-8.2) Albumin 2.2 G/DL (3.4-5.0) L Globulin 5.7 g/dL Albumin/Globulin Ratio 0.4 (1.0-2.7) L Microbiology Date/Time Source Procedure Growth Status 06/17/20 09:30 Blood Blood Culture - Preliminary Gram Negative Armando Resulted 06/17/20 09:20 Blood Blood Culture - Preliminary Gram Negative Armando Resulted Intake and Output 06/18/20 06/19/20 19:00 07:00 Intake Total 805 ml Output Total 600 ml 300 ml Balance 205 ml -300 ml Free Water 200 ml Tube Feeding 605 ml Output Urine Total 600 ml 300 ml # Voids 2 Objective General: In respiratory distress, tachypnea HEENT: NCAT, sclera anicteric, PERRL, Neck: Supple, no significant jugular venous distention, Lungs: + Coarse breath sound, decreased at bases, no Wheeze. Heart: Regular rate and rhythm, normal S1/S2, no murmurs Abdomen: soft, nontender, nondistended. Normoactive bowel sounds, PEG site is intact, / Rectal: Refused and deferred. Extremities: No Cyanosis , clubbing or edema. Neuro: limited secondary to patient's status, unable to moving upper extremities. Skin: warm, no rash. Assessment/Plan Assessment/Plan ASSESSMENT: This is a 69-year-old male. 1. Gastrostomy tube malfunction. 2. Down syndrome. 3. Congestive heart failure. 4. Mental retardation. 5. Chronic subdural hematoma. 6. Cerebrovascular disease, status post cerebrovascular accident. 7. Dysphagia. 8. Right bundle-branch block. 9. Hypertension. 10. Seizure disorder. 11. Hypercholesterolemia. 12. GNR bacteremia, most likely 2/2 GI source given ?bleeding around PEG TREATMENT: 1. Malfunction of gastrostomy tube. S/P G-tube replaced in emerg room on 06/09/20. A Gastroenterology consultation= Dr. Chapin Berger. Follow recommendations of Gastroenterology. Tube feedings have been restarted 2. Hypertension. Continue metoprolol as above. 3. Seizure disorder. Continue Keppra as above. 4. Hypercholesterolemia. Continue atorvastatin as above. 5. Down syndrome. 6. Congestive heart failure. 7. Mental retardation. 8. Chronic subdural hematoma. 9. Cerebrovascular disease, status post cerebrovascular accident. 10. Dysphagia. 11. Right bundle-branch block. Discharge planning to SNF Abx: Zosyn Follow-up with laboratory and cultures. CODE STATUS: DNAR Poor prognosis Jasen Steward MD Jun 19, 2020 12:50
[2020-06-19] MEDS: Meropenem 1 GM in NS 55 ML IVPB SCH ×2 (14:22→21:15)
--- NOTE | 2020-06-19 14:29 | NUR ---
CASE MANAGEMENT:REVIEW 06/19/20 SI: BACTEREMIA GTUBE MALFUNCTION. CHF. MULTIPLE WOUNDS 102.2 128 24 100/62 95% ON 15L/100% NRB IS: IV MEROPENEM Q8HRS IV KEPPRA Q12 SYNTHROID GT QD : MED/SURG STATUS DCP: FROM [facility] PLAN: MONITOR TEMPS
--- NOTE | 2020-06-19 14:30 | NUR ---
NURSE NOTES: Oral mouth care provided, with yankeur suction.
[2020-06-19 16:00] VITALS: BP 100/59
--- NOTE | 2020-06-19 16:23 | NUR ---
NURSE NOTES: Dr. Murphy notified of Blood Culture from 06/17, positive for E. Coli and temperature 102.2, no further orders. Addendum: 06/19/20 at 1919 by Kay Kelly RN Cool compress applied.
--- NOTE | 2020-06-19 17:45 | NUR ---
NURSE NOTES: RT called to administer respiratory treatment and suction patient.
--- NOTE | 2020-06-19 18:31 | Surgery Progress Note ---
Surgery Progress Note Subjective Symptoms: worse Additional Comments respiratory decline worsening prognosis guarded dnr/dni Objective Last 24 Hour Vital Signs Date Time Temp Pulse Resp B/P (MAP) Pulse Ox O2 Delivery O2 Flow Rate FiO2 06/19/20 13:00 100.8 06/19/20 12:00 102.2 128 24 100/62 (75) 97 06/19/20 11:52 102.2 06/19/20 11:02 136 26 95 Non-Rebreather 15.0 100 135 30 96 06/19/20 09:45 102.4 06/19/20 08:00 100.2 126 24 120/69 (86) 94 06/19/20 07:50 97 18 95 Non-Rebreather 15.0 100 06/19/20 04:00 98.6 118 24 109/65 (80) 97 06/19/20 00:00 98.7 113 22 120/62 (81) 96 06/18/20 21:00 Non-Rebreather 15.0 06/18/20 20:00 98.3 115 22 99/59 (72) 97 06/18/20 19:27 92 18 95 Non-Rebreather 15.0 100 I&O Intake and Output 06/18/20 06/19/20 19:00 07:00 Intake Total 805 ml Output Total 600 ml 300 ml Balance 205 ml -300 ml Free Water 200 ml Tube Feeding 605 ml Output Urine Total 600 ml 300 ml # Voids 2 Dressing: saturated Cardiovascular: RSR Respiratory: decreased breath sounds Abdomen: soft, non-tender, present bowel sounds Extremities: no tenderness, no cyanosis Laboratory Tests Test 06/19/20 08:50 White Blood Count 14.7 K/UL (4.8-10.8) H Red Blood Count 3.98 M/UL (4.70-6.10) L Hemoglobin 12.6 G/DL (14.2-18.0) L Hematocrit 42.7 % (42.0-52.0) Mean Corpuscular Volume 107 FL (80-99) H Mean Corpuscular Hemoglobin 31.7 PG (27.0-31.0) H Mean Corpuscular Hemoglobin Concent 29.6 G/DL (32.0-36.0) L Red Cell Distribution Width 15.5 % (11.6-14.8) H Platelet Count 231 K/UL (150-450) # Mean Platelet Volume 10.3 FL (6.5-10.1) H Neutrophils (%) (Auto) 80.2 % (45.0-75.0) H Lymphocytes (%) (Auto) 11.3 % (20.0-45.0) L Monocytes (%) (Auto) 7.2 % (1.0-10.0) Eosinophils (%) (Auto) 0.4 % (0.0-3.0) Basophils (%) (Auto) 1.0 % (0.0-2.0) Sodium Level 155 MMOL/L (136-145) H Potassium Level 4.5 MMOL/L (3.5-5.1) Chloride Level 116 MMOL/L (98-107) H Carbon Dioxide Level 31 MMOL/L (21-32) Anion Gap 8 mmol/L (5-15) Blood Urea Nitrogen 34 mg/dL (7-18) H Creatinine 1.1 MG/DL (0.55-1.30) Estimat Glomerular Filtration Rate > 60 mL/min (>60) Glucose Level 149 MG/DL (74-106) H Calcium Level 8.7 MG/DL (8.5-10.1) Total Bilirubin 0.6 MG/DL (0.2-1.0) Aspartate Amino Transf (AST/SGOT) 38 U/L (15-37) H Alanine Aminotransferase (ALT/SGPT) 62 U/L (12-78) Alkaline Phosphatase 102 U/L (46-116) Total Protein 7.9 G/DL (6.4-8.2) Albumin 2.2 G/DL (3.4-5.0) L Globulin 5.7 g/dL Albumin/Globulin Ratio 0.4 (1.0-2.7) L Plan Problems: (1) Malfunction of gastrostomy tube Assessment & Plan: 69-year-old male with recent traumatic G-tube insertion identified bleeding at the time since now hemostatic. G-tube reinserted by emergency department check by GI appropriate placement identified. KUB noted. Periwound maceration identified zinc oxide applied. Local wound care will be continued. Okay to use feeding tube at this time. Will follow with recommendations thank you GT exuding large amt sanguineous exudate with several small clots noted. Formula also noted to be mixed with sanguineous exudate. Peristomal skin is less erythematous in comparison to initial assessment. Peristomal skin is more pink and denuded. Discussed skin findings with and treatment amended to Zinc Oxide Paste with Calcium Alginate and Optifoam drsg Daily and prn. Tx.Plan: Wash Peristomal Gt with Soap and water. Saab dry. Apply Zinc Oxide Paste. Apply Maxsorb drsg. Cover with Optifoam drsg. Change Daily and prn. DAILY ESTIMATED NEEDS: Needs based on Pulmonary, wound, wt loss 48.6kg 30-35 kcals/kg 5493-1218 total kcals 1.25-1.5 g protein/kg 61-73 g total protein 25-30 mL/kg 8652-3147 total fluid mLs NUTRITION DIAGNOSIS: Difficulty swallowing r/t dysphagia as evidenced by pt is PEG dep for all nutritional needs. 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 multiple small blotchy areas. area of resolving wound noted cephalad. Incontinence associated dermatitis perineal area and buttocks, erythema noted. Intact serous blister noted to posterior L tibia,surrounding skin is pink and intact. Stable brown eschar noted to L heel(L)0.7cm x (W)0.9cm.Periwound without erythema or fluctuance. R heel boggy but blanchable.Diffused red rash noted to bilat lower ext. No other areas of skin concerns noted. Tx.Plan: Apply Triad to Buttocks and groin areas with each perineal care. Apply Cavilon Skin barrier to both heels .Off-load heels with pillow. Reposition at least every 2hours or as tolerated. Support surface mattress. Joselito Dorman Jun 19, 2020 18:31
--- NOTE | 2020-06-19 19:20 | NUR ---
NURSE NOTES: Received report from CATALINA Villanueva. Pt is in bed, A&O x0-1, call light within reach, side rails up x3, bed locked and in lowest position. PICC in LUAN, condom catheter present, will turn patient Q2H, and suction prn. Will continue to monitor.
--- NOTE | 2020-06-19 19:23 | NUR ---
NURSE HAND-OFF: Important Events on Shift:Suctioned by RT, Quinn suction x4, BC +ECOLI (Dr. Murphy notified), Temperature 102.4-98.6 (Dr. Murphy notified), Tylenol supp x1 Patient Status: stable Diet: NPO, TF Vital AF 1.2 valarie at 55 ml via GT Pending Orders: none Pending Results/Labs:none Pending MD notification:none Latest Vital Signs: Temperature 98.6 , Pulse 95 , B/P 100 /59 , Respiratory Rate 18 , O2 SAT 95 , Room Air, O2 Flow Rate 15.0 . Vital Sign Comment: monitor temperature Latest Santillan Fall Score: 70 Fall Risk: High Risk Safety Measures: Call light Within Reach, Bed Alarm Zone 1, Side Rails Side Rails x3, Bed position Low and Locked. Fall Precautions: Yellow Socks Yellow Gown Door Sign Patient Fall Education Report given to Figueroa ARNOLD.
[2020-06-19 20:00] VITALS: BP 97/57
[2020-06-19] MEDS: Dyna-Hex 2% Top Sol 2oz TOPIC SCH (21:15)
[2020-06-20] VITALS (7 sets, daily range): BP systolic 90–106; BP diastolic 52–69
[2020-06-20] MEDS: Meropenem 1 GM in NS 55 ML IVPB SCH ×3 (05:53→21:22)
--- NOTE | 2020-06-20 07:10 | NUR ---
NURSE HAND-OFF: Important Events on Shift: Oral suction, labored breathing Patient Status: calm Diet: vital af 1.2 at 55ml/hr Pending Orders: Pending Results/Labs: Pending MD notification: Latest Vital Signs: Temperature 99.0 , Pulse 115 , B/P 106 /57 , Respiratory Rate 24 , O2 SAT 97 , Room Air, O2 Flow Rate 15.0 . Vital Sign Comment: VSS Latest Santillan Fall Score: 70 Fall Risk: High Risk Safety Measures: Call light Within Reach, Bed Alarm Zone 1, Side Rails Side Rails x3, Bed position Low and Locked. Fall Precautions: Yellow Socks Yellow Gown Door Sign Patient Fall Education Report given to CATALINA Garcia.
--- NOTE | 2020-06-20 08:00 | NUR ---
NURSE NOTES: Patient non-verbal; on Non-Rebreather 15 Liters, patient hyperventilating; PICC on Right Upper Arm Double Lumen dressing dry and intact fluid running; Condom cath in place; G-Tube Vital AF 1.2 running at 55cc, no residual, head of the bed elevated, side rails padded for seizure percussion, bed at lowest position, bed alarm on, call light within reach; will keep monitoring.
[2020-06-20] MEDS: Acetaminophen 650 MG SUPP RECTAL PRN (08:51)
[2020-06-20] MEDS: levETIRAcetam 500mg/NS100ml 100 ML IVPB SCH ×2 (08:51→20:56)
[2020-06-20] MEDS: Zinc Oxide Oint 2oz TOPIC SCH ×3 (08:52→17:10)
--- NOTE | 2020-06-20 12:09 | Surgery Progress Note ---
Surgery Progress Note Subjective Additional Comments ill appearing on support Objective Last 24 Hour Vital Signs Date Time Temp Pulse Resp B/P (MAP) Pulse Ox O2 Delivery O2 Flow Rate FiO2 06/20/20 09:21 99.9 06/20/20 09:00 Non-Rebreather 15.0 06/20/20 08:00 101.8 124 24 105/57 (73) 99 06/20/20 04:00 99.0 115 24 106/57 (73) 97 06/20/20 00:00 99.2 119 24 90/53 (65) 97 06/19/20 21:00 Non-Rebreather 15.0 06/19/20 20:00 99.5 118 24 97/57 (70) 95 06/19/20 19:02 95 18 95 Non-Rebreather 15.0 100 06/19/20 17:45 98.6 06/19/20 16:00 102.2 124 24 100/59 (73) 96 06/19/20 13:00 100.8 I&O Intake and Output 06/19/20 06/20/20 19:00 07:00 Intake Total 805 ml Output Total 300 ml 400 ml Balance 505 ml -400 ml Free Water 200 ml Tube Feeding 605 ml Output Urine Total 300 ml 400 ml # Voids 1 Dressing: saturated Cardiovascular: RSR Respiratory: decreased breath sounds Abdomen: soft, non-tender, present bowel sounds Extremities: no tenderness, no cyanosis Plan Problems: (1) Malfunction of gastrostomy tube Assessment & Plan: 69-year-old male with recent traumatic G-tube insertion identified bleeding at the time since now hemostatic. G-tube reinserted by emergency department check by GI appropriate placement identified. KUB noted. Periwound maceration identified zinc oxide applied. Local wound care will be continued. Okay to use feeding tube at this time. Will follow with recommendations thank you GT exuding large amt sanguineous exudate with several small clots noted. Formula also noted to be mixed with sanguineous exudate. Peristomal skin is less erythematous in comparison to initial assessment. Peristomal skin is more pink and denuded. Discussed skin findings with and treatment amended to Zinc Oxide Paste with Calcium Alginate and Optifoam drsg Daily and prn. Tx.Plan: Wash Peristomal Gt with Soap and water. Saab dry. Apply Zinc Oxide Paste. Apply Maxsorb drsg. Cover with Optifoam drsg. Change Daily and prn. DAILY ESTIMATED NEEDS: Needs based on Pulmonary, wound, wt loss 48.6kg 30-35 kcals/kg 1569-2511 total kcals 1.25-1.5 g protein/kg 61-73 g total protein 25-30 mL/kg 8372-9374 total fluid mLs NUTRITION DIAGNOSIS: Difficulty swallowing r/t dysphagia as evidenced by pt is PEG dep for all nutritional needs. 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 multiple small blotchy areas. area of resolving wound noted cephalad. Incontinence associated dermatitis perineal area and buttocks, erythema noted. Intact serous blister noted to posterior L tibia,surrounding skin is pink and intact. Stable brown eschar noted to L heel(L)0.7cm x (W)0.9cm.Periwound without erythema or fluctuance. R heel boggy but blanchable.Diffused red rash noted to bilat lower ext. No other areas of skin concerns noted. Tx.Plan: Apply Triad to Buttocks and groin areas with each perineal care. Apply Cavilon Skin barrier to both heels .Off-load heels with pillow. Reposition at least every 2hours or as tolerated. Support surface mattress. Joselito Dorman Jun 20, 2020 12:09
--- NOTE | 2020-06-20 16:14 | Internal Med Progress Note ---
Subjective Date of Service: Jun 20, 2020 Physician Name Amor Berg Attending Physician Jasen Steward MD Current Medications Medications (Trade) Dose Ordered Sig/Eddy Route PRN Reason Start Time Stop Time Status Last Admin Dose Admin Acetaminophen (Tylenol) 650 mg Q6H PRN RECTAL Temp >100.5/Mild Pain (1-3) 06/09/20 08:00 07/09/20 07:59 06/20/20 08:51 Albuterol/ Ipratropium (Albuterol/ Ipratropium) 3 ml Q4H PRN HHN Shortness of Breath 06/17/20 17:45 06/22/20 17:44 06/19/20 10:50 Chlorhexidine Gluconate (Tesha-Hex 2%) 1 applic BEDTIME TOPIC 06/09/20 21:00 09/07/20 20:59 06/19/20 21:15 Levetiracetam 100 ml @ 400 mls/hr Q12HR IVPB 06/09/20 09:30 09/07/20 09:29 06/20/20 08:51 Levothyroxine Sodium (Synthroid) 88 mcg DAILY@0630 GT 06/09/20 09:00 07/09/20 08:59 06/20/20 05:53 Meropenem 1 gm/ Sodium Chloride 55 ml @ 110 mls/hr Q8HR IVPB 06/19/20 15:00 06/24/20 14:59 06/20/20 13:09 Zinc Oxide (Zinc Oxide) 1 applic THREE TIMES A DAY TOPIC 06/09/20 10:00 09/07/20 09:59 06/20/20 13:09 Allergies: Coded Allergies: SULFA (SULFONAMIDE ANTIBIOTICS) (Verified Allergy, Unknown, 09/02/15) ROS Limited/Unobtainable: Yes Subjective 69 YO M with history of Down's syndrome and dysphagia admitted with G-tube malfunction. S/P G-tube replaced in ER. Cover for Int Med-Dr Steward. On nonre breather mask. Fever to 101.8 F Objective Last Vital Signs Date Time Temp Pulse Resp B/P (MAP) Pulse Ox O2 Delivery O2 Flow Rate FiO2 06/20/20 12:00 98.1 117 24 96/54 (68) 97 06/20/20 09:00 Non-Rebreather 15.0 06/19/20 19:02 100 Microbiology Date/Time Source Procedure Growth Status 06/19/20 10:40 Blood Blood Culture - Preliminary NO GROWTH AFTER 24 HOURS Resulted Intake and Output 06/19/20 06/20/20 19:00 07:00 Intake Total 805 ml 55 ml Output Total 300 ml 400 ml Balance 505 ml -345 ml Free Water 200 ml Tube Feeding 605 ml 55 ml Output Urine Total 300 ml 400 ml # Voids 1 Objective PHYSICAL EXAMINATION: GENERAL: Patient is well-developed, well-nourished male, in no apparent distress. HEENT: Eyes, pupils are equal and responsive to light and accommodation. Extraocular movements are intact. NECK: Supple. No lymphadenopathy. CHEST: non rebreather mask; Lungs are clear to auscultation bilaterally without wheezes or rales. CARDIOVASCULAR: Regular rhythm and rate. S1, S2 are normal without murmurs, rubs, or gallops. ABDOMEN: Soft, nontender, nondistended. Positive bowel sounds. No evidence of hepatosplenomegaly. Currently, no rebound or guarding noted. EXTREMITIES: Negative for clubbing, cyanosis, or edema. RECTAL/GENITAL: Not performed. NEUROLOGIC: Cranial nerves II through XII grossly intact without focal deficits. Assessment/Plan Assessment/Plan ASSESSMENT: This is a 69-year-old male. 1. Gastrostomy tube malfunction. 2. Down syndrome. 3. Congestive heart failure. 4. Mental retardation. 5. Chronic subdural hematoma. 6. Cerebrovascular disease, status post cerebrovascular accident. 7. Dysphagia. 8. Right bundle-branch block. 9. Hypertension. 10. Seizure disorder. 11. Hypercholesterolemia. 12. Sepsis=ESBL E. Coli TREATMENT: 1. Malfunction of gastrostomy tube. S/P G-tube replaced in emerg room on 06/09/20. A Gastroenterology consultation= Dr. Chapin Berger. Follow recommendations of Gastroenterology. Tube feedings have been restarted 2. Hypertension. Continue metoprolol as above. 3. Seizure disorder. Continue Keppra as above. 4. Hypercholesterolemia. Continue atorvastatin as above. 5. Down syndrome. 6. Congestive heart failure. 7. Mental retardation. 8. Chronic subdural hematoma. 9. Cerebrovascular disease, status post cerebrovascular accident. 10. Dysphagia. 11. Right bundle-branch block. 12. discharge planning 13. Code status=DNR/DNI 14. ABX=meropenem Amor Berg MD Jun 20, 2020 16:14
--- NOTE | 2020-06-20 19:21 | NUR ---
NURSE HAND-OFF: Important Events on Shift:Fever controlled; deep suction provided by RT; IV meds given; Patient Status: Diet: Pending Orders: Pending Results/Labs: Pending MD notification: Latest Vital Signs: Temperature 96.3 , Pulse 118 , B/P 103 /69 , Respiratory Rate 24 , O2 SAT 97 , Room Air, O2 Flow Rate 15.0 . Vital Sign Comment: Latest Santillan Fall Score: 70 Fall Risk: High Risk Safety Measures: Call light Within Reach, Bed Alarm Zone 1, Side Rails Side Rails x3, Bed position Low and Locked. Fall Precautions: Yellow Socks Yellow Gown Door Sign Patient Fall Education Report given to .
--- NOTE | 2020-06-20 19:22 | NUR ---
NURSE NOTES: Patient in bed, awake and alert x0. Non-verbal. Patient currently on non-Rebreather mask @ 15 Liters; tachypneic. PICC line noted in the LUAN; flushes well. Condom cath in place. G-Tube in place, running tube feeding as ordered. Bed locked and in lowest position. Will continue plan of care.
[2020-06-20] MEDS: Dyna-Hex 2% Top Sol 2oz TOPIC SCH (21:02)
[2020-06-21 04:00] VITALS: BP 103/55
[2020-06-21] MEDS: Meropenem 1 GM in NS 55 ML IVPB SCH ×3 (05:00→21:06)
[2020-06-21 06:30] LABS: BASOPHILS % (AUTO) 0.9 % (0.0-2.0); EOSINOPHILS % (AUTO) 1.6 % (0.0-3.0); HEMATOCRIT 39.6 % (42.0-52.0); HEMOGLOBIN 11.8 G/DL (14.2-18.0); LYMPHOCYTES % (AUTO) 11.2 % (20.0-45.0); MEAN CORPUSCULAR VOLUME 108 FL (80-99); MONOCYTES % (AUTO) 2.6 % (1.0-10.0); NEUTROPHILS % (AUTO) 83.7 % (45.0-75.0); PLATELET COUNT 227 K/UL (150-450); RED BLOOD COUNT 3.66 M/UL (4.70-6.10); RED CELL DISTRIBUTION WIDTH 15.2 % (11.6-14.8); WHITE BLOOD COUNT 13.4 K/UL (4.8-10.8)
[2020-06-21 06:44] LABS: ANION GAP 5 mmol/L (5-15); BLOOD UREA NITROGEN 33 mg/dL (7-18); CALCIUM 8.9 MG/DL (8.5-10.1); CARBON DIOXIDE 33 MMOL/L (21-32); CHLORIDE 117 MMOL/L (98-107); POTASSIUM 4.8 MMOL/L (3.5-5.1); SODIUM 155 MMOL/L (136-145)
--- NOTE | 2020-06-21 06:49 | NUR ---
NURSE HAND-OFF: Important Events on Shift: WCP, still on non-rebreather Patient Status: Stable Diet: Vital AF 1.2 Pending Orders: N/A Pending Results/Labs: BMP, CBC Pending MD notification: N/A Latest Vital Signs: Temperature 97.4 , Pulse 123 , B/P 103 /55 , Respiratory Rate 35 , O2 SAT 98 , Room Air, O2 Flow Rate 15.0 . Vital Sign Comment: N/A Latest Santillan Fall Score: 70 Fall Risk: High Risk Safety Measures: Call light Within Reach, Bed Alarm Zone 1, Side Rails Side Rails x3, Bed position Low and Locked. Fall Precautions: Yellow Socks Yellow Gown Door Sign Patient Fall Education
--- NOTE | 2020-06-21 07:38 | NUR ---
NURSE NOTES: Patient awake, non-verbal; on Non-Rebreather 15 Liters, patient hyperventilate; no sing of chest pain; Vital AF 1.2 running at 55cc, no residual, head of the bed elevated for aspiration percussion, side rails padded for seizure percussion, breaks engaged, call light within reach; Condom Cath in place; will keep monitoring.
[2020-06-21 08:00] VITALS: BP 112/75
[2020-06-21] MEDS: Zinc Oxide Oint 2oz TOPIC SCH ×3 (08:37→18:10)
[2020-06-21] MEDS: levETIRAcetam 500mg/NS100ml 100 ML IVPB SCH ×2 (08:37→21:06)
--- NOTE | 2020-06-21 09:08 | Infectious Diseases Prog Note ---
Assessment/Plan 69yo M with: ESBL E.coli bacteremia Febrile to 100.4 - 102 Mild leukocytosis to 11 Hypoxia on 6L NC, r/o COVID - neg Erythema around PEG site Dark drainage from PEG 06/09 COVID PCR neg 06/13 CXR: 1. Interstitial opacities most prominent in the perihilar regions which may represent pulmonary vasculature congestion/edema. Probable small left pleural effusion. 2. Right-sided PICC line terminates in the region of the right axilla. Nonspecific thin linear density in the right hilar region. Question abandoned catheter fragment versus external artifact. 06/15 COVID PCR neg 06/17 BCx +ESBL E.coli 06/19 BCx NTD Cr 0.8 Dysphagia s/p PEG with replacement in ED 06/09 Down syndrome CHF S/p CVA HTN HLD Seizure disorder Plan: Cont meropenem #3 for ESBL E.coli bacteremia, most likely 06/09 GI source given P EG drainage Abd US to eval for source given bactermia F/u read from CT A/P done 06/09 - no report seen Appreciate GI input on copious dark drainage from PEG site causing skin irritation and possible cellulitis - ongoing drainage Trend WBC, temp curve 06/19 SP ZOsyn #3 06/17 SP CTX #1 Monitor CBC/CMP Monitor resp status Monitor temp curve, hemodynamics D/w RN Thank you for this consult. [facility] will continue to follow. Subjective Allergies: Coded Allergies: SULFA (SULFONAMIDE ANTIBIOTICS) (Verified Allergy, Unknown, 09/02/15) AF - improved temp curve NAD in bed WBC 13, stable/improving Satting 99% on NRB mask, very wet upper airway sounds audible Objective Last 24 Hour Vital Signs Date Time Temp Pulse Resp B/P (MAP) Pulse Ox O2 Delivery O2 Flow Rate FiO2 06/21/20 04:00 97.4 123 35 103/55 (71) 98 06/20/20 23:42 97.6 121 37 95/59 (71) 94 06/20/20 22:17 89 16 94 Non-Rebreather 15.0 100 06/20/20 21:00 Non-Rebreather 15.0 06/20/20 20:00 98.4 128 30 106/52 (70) 95 06/20/20 16:00 96.3 118 24 103/69 (80) 97 06/20/20 12:00 98.1 117 24 96/54 (68) 97 06/20/20 09:21 99.9 Height (Feet): 5 Height (Inches): 4.00 Weight (Pounds): 133 Gen: NAD in bed HEENT: NCAT CV: RRR Pulm: CTAB, upper airway wet sounds audible Abd: Soft, NTND + PEG w/ dark drainage around site ongoing Ext: No c/c/e Neuro: Not interactive Microbiology Date/Time Source Procedure Growth Status 06/19/20 10:40 Blood Blood Culture - Preliminary NO GROWTH AFTER 24 HOURS Resulted Laboratory Tests Test 06/21/20 05:30 White Blood Count 13.4 K/UL (4.8-10.8) H Red Blood Count 3.66 M/UL (4.70-6.10) L Hemoglobin 11.8 G/DL (14.2-18.0) L Hematocrit 39.6 % (42.0-52.0) L Mean Corpuscular Volume 108 FL (80-99) H Mean Corpuscular Hemoglobin 32.4 PG (27.0-31.0) H Mean Corpuscular Hemoglobin Concent 29.9 G/DL (32.0-36.0) L Red Cell Distribution Width 15.2 % (11.6-14.8) H Platelet Count 227 K/UL (150-450) Mean Platelet Volume 9.8 FL (6.5-10.1) Neutrophils (%) (Auto) 83.7 % (45.0-75.0) H Lymphocytes (%) (Auto) 11.2 % (20.0-45.0) L Monocytes (%) (Auto) 2.6 % (1.0-10.0) Eosinophils (%) (Auto) 1.6 % (0.0-3.0) Basophils (%) (Auto) 0.9 % (0.0-2.0) Sodium Level 155 MMOL/L (136-145) H Potassium Level 4.8 MMOL/L (3.5-5.1) Chloride Level 117 MMOL/L (98-107) H Carbon Dioxide Level 33 MMOL/L (21-32) H Anion Gap 5 mmol/L (5-15) Blood Urea Nitrogen 33 mg/dL (7-18) H Creatinine 1.0 MG/DL (0.55-1.30) Estimat Glomerular Filtration Rate > 60 mL/min (>60) Glucose Level 131 MG/DL (74-106) H Calcium Level 8.9 MG/DL (8.5-10.1) Current Medications Medications (Trade) Dose Ordered Sig/Eddy Route PRN Reason Start Time Stop Time Status Last Admin Dose Admin Acetaminophen (Tylenol) 650 mg Q6H PRN RECTAL Temp >100.5/Mild Pain (1-3) 06/09/20 08:00 07/09/20 07:59 06/20/20 08:51 Albuterol/ Ipratropium (Albuterol/ Ipratropium) 3 ml Q4H PRN HHN Shortness of Breath 06/17/20 17:45 06/22/20 17:44 06/19/20 10:50 Chlorhexidine Gluconate (Tesha-Hex 2%) 1 applic BEDTIME TOPIC 06/09/20 21:00 09/07/20 20:59 06/20/20 21:02 Levetiracetam 100 ml @ 400 mls/hr Q12HR IVPB 06/09/20 09:30 09/07/20 09:29 06/21/20 08:37 Levothyroxine Sodium (Synthroid) 88 mcg DAILY@0630 GT 06/09/20 09:00 07/09/20 08:59 06/21/20 05:40 Meropenem 1 gm/ Sodium Chloride 55 ml @ 110 mls/hr Q8HR IVPB 06/19/20 15:00 06/24/20 14:59 06/21/20 05:00 Zinc Oxide (Zinc Oxide) 1 applic THREE TIMES A DAY TOPIC 06/09/20 10:00 09/07/20 09:59 06/21/20 08:37 Caryn Murphy M.D. Jun 21, 2020 09:08
--- NOTE | 2020-06-21 11:48 | Surgery Progress Note ---
Surgery Progress Note Subjective Additional Comments prognosis guarded ill appearing respiratory compromise Objective Last 24 Hour Vital Signs Date Time Temp Pulse Resp B/P (MAP) Pulse Ox O2 Delivery O2 Flow Rate FiO2 06/21/20 09:00 Non-Rebreather 15.0 06/21/20 08:00 98.2 136 40 112/75 (87) 99 06/21/20 04:00 97.4 123 35 103/55 (71) 98 06/20/20 23:42 97.6 121 37 95/59 (71) 94 06/20/20 22:17 89 16 94 Non-Rebreather 15.0 100 06/20/20 21:00 Non-Rebreather 15.0 06/20/20 20:00 98.4 128 30 106/52 (70) 95 06/20/20 16:00 96.3 118 24 103/69 (80) 97 06/20/20 12:00 98.1 117 24 96/54 (68) 97 I&O Intake and Output 06/20/20 06/21/20 19:00 07:00 Intake Total 1470 ml 595 ml Output Total 300 ml Balance 1170 ml 595 ml Free Water 300 ml 100 ml IV Total 510 ml Tube Feeding 660 ml 495 ml Output Urine Total 300 ml # Voids 2 Dressing: other Wound: other Cardiovascular: RSR Respiratory: decreased breath sounds, other Abdomen: soft, non-tender, decreased bowel sounds Extremities: no tenderness, no cyanosis Laboratory Tests Test 06/21/20 05:30 White Blood Count 13.4 K/UL (4.8-10.8) H Red Blood Count 3.66 M/UL (4.70-6.10) L Hemoglobin 11.8 G/DL (14.2-18.0) L Hematocrit 39.6 % (42.0-52.0) L Mean Corpuscular Volume 108 FL (80-99) H Mean Corpuscular Hemoglobin 32.4 PG (27.0-31.0) H Mean Corpuscular Hemoglobin Concent 29.9 G/DL (32.0-36.0) L Red Cell Distribution Width 15.2 % (11.6-14.8) H Platelet Count 227 K/UL (150-450) Mean Platelet Volume 9.8 FL (6.5-10.1) Neutrophils (%) (Auto) 83.7 % (45.0-75.0) H Lymphocytes (%) (Auto) 11.2 % (20.0-45.0) L Monocytes (%) (Auto) 2.6 % (1.0-10.0) Eosinophils (%) (Auto) 1.6 % (0.0-3.0) Basophils (%) (Auto) 0.9 % (0.0-2.0) Sodium Level 155 MMOL/L (136-145) H Potassium Level 4.8 MMOL/L (3.5-5.1) Chloride Level 117 MMOL/L (98-107) H Carbon Dioxide Level 33 MMOL/L (21-32) H Anion Gap 5 mmol/L (5-15) Blood Urea Nitrogen 33 mg/dL (7-18) H Creatinine 1.0 MG/DL (0.55-1.30) Estimat Glomerular Filtration Rate > 60 mL/min (>60) Glucose Level 131 MG/DL (74-106) H Calcium Level 8.9 MG/DL (8.5-10.1) Plan Problems: (1) Malfunction of gastrostomy tube Assessment & Plan: 69-year-old male with recent traumatic G-tube insertion identified bleeding at the time since now hemostatic. G-tube reinserted by emergency department check by GI appropriate placement identified. KUB noted. Periwound maceration identified zinc oxide applied. Local wound care will be continued. Okay to use feeding tube at this time. Will follow with recommendations thank you GT exuding large amt sanguineous exudate with several small clots noted. Formula also noted to be mixed with sanguineous exudate. Peristomal skin is less erythematous in comparison to initial assessment. Peristomal skin is more pink and denuded. Discussed skin findings with and treatment amended to Zinc Oxide Paste with Calcium Alginate and Optifoam drsg Daily and prn. Tx.Plan: Wash Peristomal Gt with Soap and water. Saab dry. Apply Zinc Oxide Paste. Apply Maxsorb drsg. Cover with Optifoam drsg. Change Daily and prn. DAILY ESTIMATED NEEDS: Needs based on Pulmonary, wound, wt loss 48.6kg 30-35 kcals/kg 1228-3875 total kcals 1.25-1.5 g protein/kg 61-73 g total protein 25-30 mL/kg 8704-0416 total fluid mLs NUTRITION DIAGNOSIS: Difficulty swallowing r/t dysphagia as evidenced by pt is PEG dep for all nutritional needs. 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 mul tiple small blotchy areas. area of resolving wound noted cephalad. Incontinence associated dermatitis perineal area and buttocks, erythema noted. Intact serous blister noted to posterior L tibia,surrounding skin is pink and intact. Stable brown eschar noted to L heel(L)0.7cm x (W)0.9cm.Periwound without erythema or fluctuance. R heel boggy but blanchable.Diffused red rash noted to bilat lower ext. No other areas of skin concerns noted. Tx.Plan: Apply Triad to Buttocks and groin areas with each perineal care. Apply Cavilon Skin barrier to both heels .Off-load heels with pillow. Reposition at least every 2hours or as tolerated. Support surface mattress. Joselito Dorman Jun 21, 2020 11:48
[2020-06-21 12:00] VITALS: BP 94/61
--- NOTE | 2020-06-21 13:29 | NUR ---
NURSE NOTES: Notified Dr. Steward of pt's elevated HR and RR for this morning; no new order given. Primary nurse aware.
--- NOTE | 2020-06-21 15:46 | Diagnostic Imaging Report ---
EXAM: US Abdomen Complete CLINICAL HISTORY: BACT TECHNIQUE: Real-time ultrasound of the abdomen with image documentation. COMPARISON: No relevant prior studies available. FINDINGS: Liver: Right hepatic lobe diameter of 16.1 cm. No visible parenchymal lesions. No intrahepatic biliary ductal dilatation. Normal portal vein diameter of 8 mm with hepatopetal flow. Gallbladder: Gallbladder is contracted. No visible stones or sludge. No pericholecystic fluid. Common bile duct: Common bile duct diameter 3.5 mm, within normal limits. Pancreas: Visualized portions of the pancreatic head appear unremarkable. Pancreatic body and tail are obscured by bowel gas. Kidneys: Right kidney length of 8.6 cm. Left kidney length of 9.1 cm. Normal cortical thickness. No visible parenchymal lesions. No visible stones. No hydronephrosis. Spleen: Normal spleen length of 8.3 cm. Aorta: Obscured by bowel gas. Inferior vena cava: Visualized portions appear unremarkable. Pleural space: Small bilateral pleural effusions. IMPRESSION: Small bilateral pleural effusions. Otherwise unremarkable abdominal ultrasound.
--- NOTE | 2020-06-21 15:51 | Internal Med Progress Note ---
Subjective Date of Service: Jun 21, 2020 Physician Name Amor Berg Attending Physician Jasen Steward MD Current Medications Medications (Trade) Dose Ordered Sig/Eddy Route PRN Reason Start Time Stop Time Status Last Admin Dose Admin Acetaminophen (Tylenol) 650 mg Q6H PRN RECTAL Temp >100.5/Mild Pain (1-3) 06/09/20 08:00 07/09/20 07:59 06/20/20 08:51 Albuterol/ Ipratropium (Albuterol/ Ipratropium) 3 ml Q4H PRN HHN Shortness of Breath 06/17/20 17:45 06/22/20 17:44 06/19/20 10:50 Chlorhexidine Gluconate (Tesha-Hex 2%) 1 applic BEDTIME TOPIC 06/09/20 21:00 09/07/20 20:59 06/20/20 21:02 Levetiracetam 100 ml @ 400 mls/hr Q12HR IVPB 06/09/20 09:30 09/07/20 09:29 06/21/20 08:37 Levothyroxine Sodium (Synthroid) 88 mcg DAILY@0630 GT 06/09/20 09:00 07/09/20 08:59 06/21/20 05:40 Meropenem 1 gm/ Sodium Chloride 55 ml @ 110 mls/hr Q8HR IVPB 06/19/20 15:00 06/24/20 14:59 06/21/20 14:09 Zinc Oxide (Zinc Oxide) 1 applic THREE TIMES A DAY TOPIC 06/09/20 10:00 09/07/20 09:59 06/21/20 14:09 Allergies: Coded Allergies: SULFA (SULFONAMIDE ANTIBIOTICS) (Verified Allergy, Unknown, 09/02/15) ROS Limited/Unobtainable: Yes Subjective 69 YO M with history of Down's syndrome and dysphagia admitted with G-tube malfunction. S/P G-tube replaced in ER. Cover for Int Med-Dr Steward. On nonre breather mask. Tachypneic Objective Last Vital Signs Date Time Temp Pulse Resp B/P (MAP) Pulse Ox O2 Delivery O2 Flow Rate FiO2 06/21/20 12:00 98.6 131 48 94/61 (72) 98 06/21/20 09:00 Non-Rebreather 15.0 06/21/20 07:00 100 Laboratory Tests Test 06/21/20 05:30 White Blood Count 13.4 K/UL (4.8-10.8) H Red Blood Count 3.66 M/UL (4.70-6.10) L Hemoglobin 11.8 G/DL (14.2-18.0) L Hematocrit 39.6 % (42.0-52.0) L Mean Corpuscular Volume 108 FL (80-99) H Mean Corpuscular Hemoglobin 32.4 PG (27.0-31.0) H Mean Corpuscular Hemoglobin Concent 29.9 G/DL (32.0-36.0) L Red Cell Distribution Width 15.2 % (11.6-14.8) H Platelet Count 227 K/UL (150-450) Mean Platelet Volume 9.8 FL (6.5-10.1) Neutrophils (%) (Auto) 83.7 % (45.0-75.0) H Lymphocytes (%) (Auto) 11.2 % (20.0-45.0) L Monocytes (%) (Auto) 2.6 % (1.0-10.0) Eosinophils (%) (Auto) 1.6 % (0.0-3.0) Basophils (%) (Auto) 0.9 % (0.0-2.0) Sodium Level 155 MMOL/L (136-145) H Potassium Level 4.8 MMOL/L (3.5-5.1) Chloride Level 117 MMOL/L (98-107) H Carbon Dioxide Level 33 MMOL/L (21-32) H Anion Gap 5 mmol/L (5-15) Blood Urea Nitrogen 33 mg/dL (7-18) H Creatinine 1.0 MG/DL (0.55-1.30) Estimat Glomerular Filtration Rate > 60 mL/min (>60) Glucose Level 131 MG/DL (74-106) H Calcium Level 8.9 MG/DL (8.5-10.1) Microbiology Date/Time Source Procedure Growth Status 06/19/20 10:40 Blood Blood Culture - Preliminary NO GROWTH AFTER 24 HOURS Resulted Intake and Output 06/20/20 06/21/20 19:00 07:00 Intake Total 1470 ml 595 ml Output Total 300 ml Balance 1170 ml 595 ml Free Water 300 ml 100 ml IV Total 510 ml Tube Feeding 660 ml 495 ml Output Urine Total 300 ml # Voids 2 Objective PHYSICAL EXAMINATION: GENERAL: Patient is well-developed, well-nourished male, in no apparent distress. HEENT: Eyes, pupils are equal and responsive to light and accommodation. Extraocular movements are intact. NECK: Supple. No lymphadenopathy. CHEST: non rebreather mask; Tachypneic; Lungs with decreased breath sounds CARDIOVASCULAR: Regular rhythm and rate. S1, S2 are normal without murmurs, rubs, or gallops. ABDOMEN: Soft, nontender, nondistended. Positive bowel sounds. No evidence of hepatosplenomegaly. Currently, no rebound or guarding noted. EXTREMITIES: Negative for clubbing, cyanosis, or edema. RECTAL/GENITAL: Not performed. NEUROLOGIC: Cranial nerves II through XII grossly intact without focal deficits. Assessment/Plan Assessment/Plan ASSESSMENT: This is a 69-year-old male. 1. Gastrostomy tube malfunction. 2. Down syndrome. 3. Congestive heart failure. 4. Mental retardation. 5. Chronic subdural hematoma. 6. Cerebrovascular disease, status post cerebrovascular accident. 7. Dysphagia. 8. Right bundle-branch block. 9. Hypertension. 10. Seizure disorder. 11. Hypercholesterolemia. 12. Sepsis=ESBL E. Coli TREATMENT: 1. Malfunction of gastrostomy tube. S/P G-tube replaced in emerg room on 06/09/20. A Gastroenterology consultation= Dr. Chapin Berger. Follow recommendations of Gastroenterology. Tube feedings have been restarted 2. Hypertension. Continue metoprolol as above. 3. Seizure disorder. Continue Keppra as above. 4. Hypercholesterolemia. Continue atorvastatin as above. 5. Down syndrome. 6. Congestive heart failure. 7. Mental retardation. 8. Chronic subdural hematoma. 9. Cerebrovascular disease, status post cerebrovascular accident. 10. Dysphagia. 11. Right bundle-branch block. 12. discharge planning 13. Code status=DNR/DNI 14. ABX=meropenem 15. comfort care Amor Berg MD Jun 21, 2020 15:51
[2020-06-21 16:00] VITALS: BP 104/57
[2020-06-21] MEDS ORDERED: Morphine Sulfate 4mg/ml Inj (IV USE ONLY) IVP PRN (16:00)
[2020-06-21] MEDS ORDERED: LORazepam Inj 2mg/ml 1ml IV PRN (16:00)
--- NOTE | 2020-06-21 18:41 | NUR ---
NURSE NOTES: MD Murphy want to see the CT imaging which was done 06/09/20; I asked CT department and they brought the imaging report to the floor; MD Murphy want me to leave the report on the chart so that MD to see it when she does rounds.
--- NOTE | 2020-06-21 19:31 | NUR ---
NURSE HAND-OFF: Important Events on Shift:ABD US; Patient Status: Diet: Pending Orders: Pending Results/Labs: Pending MD notification: Latest Vital Signs: Temperature 98.9 , Pulse 107 , B/P 104 /57 , Respiratory Rate 43 , O2 SAT 97 , Room Air, O2 Flow Rate 15.0 . Vital Sign Comment: Latest Santillan Fall Score: 70 Fall Risk: High Risk Safety Measures: Call light Within Reach, Bed Alarm Zone 1, Side Rails Side Rails x3, Bed position Low and Locked. Fall Precautions: Yellow Socks Yellow Gown Door Sign Patient Fall Education Report given to .
--- NOTE | 2020-06-21 19:39 | NUR ---
NURSE NOTES: Patient in bed. Kept clean and comfortable. Provide safe environment. Be din low and locked position. On non rebreather mask 15L. Respiration elevated. Skin is warm. GT noted, feeding is infusing as ordered. Call light is at bedside. Will continue plan of care.
[2020-06-21 20:00] VITALS: BP 105/66
[2020-06-21] MEDS: Dyna-Hex 2% Top Sol 2oz TOPIC SCH (21:05)
[2020-06-21 23:34] VITALS: BP 90/55
--- NOTE | 2020-06-21 23:50 | NUR ---
NURSE NOTES: Noted patient did not have respiration, pulse. Blood pressure checked, none. Informed charge nurse.
--- NOTE | 2020-06-22 00:13 | NUR ---
NURSE NOTES: Dr. Steward has been paged, left a message regarding Mr. Bullard. Charge nurse made aware. Will inform Story Analyst.
--- NOTE | 2020-06-22 00:22 | NUR ---
NURSE NOTES: Left a message for Zaria Teresa POA [phone].
--- NOTE | 2020-06-22 00:30 | NUR ---
NURSE NOTES: Family, was informed regarding patient.
--- NOTE | 2020-06-22 01:18 | NUR ---
PRONOUNCEMENT: No Code. Called to pronounce patient. Absence of spontaneous respirations, no cardiac or breath sounds on auscultation. Pupils fixed and dilated. No carotid pulse or chest movement. Patient at 2350. DR LUNA notified PER CATALINA AGUIRRE.MESSAGE LEFT. Family was notified at 0025(TRACI WAHL)BROTHER.
[2020-06-22] MEDS ORDERED: Tubing IV Secondary IV ONE (02:09)
--- NOTE | 2020-06-25 14:14 | Discharge Summary ---
Discharge Summary Discharge Summary _ Date of admission: 06/09/2020 Date of expiration: 06/22/2020 History of Present Illness and Brief Hospital Course Mr. Bullard was a 69-year-old male with past medical history of Down syndrome, chronic encephalopathy, CHF, and G-tube dependence, who was sent to ED from [facility] for evaluation of abdominal bleeding after pulling out his G-tube. Patient had a 28 [address] G-tube in place but he pulled it out causing the area to bleed profusely. The area was bandaged and the G-tube was left in place prior to presenting to the ED. Patient was nonverbal at baseline. Patient was actively bleeding from the G-tube insertion site which was slowed down with pressure alone. His hemoglobin level was within normal limits in the ED. G-tube was reinserted in the ER and the placement was confirmed with KUB. Patient was admitted to the hospital for further management. Patient presented with multiple wounds upon admission. Patient had partial- thickness stage II sacral decubitus wound with periwound erythema. Patient continued to receive wound care. His blood cultures grew ESBL E. coli. Patient was started on antibiotics. Patient was evaluated with abdominal ultrasound to evaluate for possible source of bacteremia. Abdominal ultrasound was unremarkable other than small bilateral pleural effusions. A repeat blood culture came back negative. Patient became hypoxic and was placed on low-flow supplemental oxygen. Patient tested negative for COVID-19. Patient became increasingly hypoxic. Unfortunately, patient was found to be in asystole on 06/22/2020. Patient's CODE STATUS was DNR/DNI at this time. Patient was pronounced on 06/22/2020 at 2350. Cause of : Cardiopulmonary arrest Consultants: Infectious disease Dr. Murphy Surgery Dr. Dorman Gastroenterology Dr. Berger Final diagnoses ESBL E. coli bacteremia Mild leukocytosis Hypoxic respiratory insufficiency History of Down syndrome History of seizure disorder Gastrotomy tube malfunction CHF Chronic posttraumatic subdural hematoma Cerebrovascular disease, status post cerebrovascular accident Dysphagia Hypercholesterolemia Sepsis Toxic encephalopathy Hypothyroidism Constipation Congenital heart disease Anxiety Decubitus ulcer I have been assigned to dictate discharge summary for this account. I was not involved in the patient's management Sina Hu Jun 25, 2020 14:14
--- NOTE | 2020-06-26 12:15 | Diagnostic Imaging Report ---
EXAM: CT Abdomen and Pelvis Without Intravenous Contrast CLINICAL HISTORY: RLQ ABD PAIN X 2 DAYS TECHNIQUE: Axial computed tomography images of the abdomen and pelvis without intravenous contrast. CTDI is 7.2 mGy and DLP is 358.1 mGy-cm. One or more of the following dose reduction techniques were used: automated exposure control, adjustment of the mA and/or kV according to patient size, use of iterative reconstruction technique. COMPARISON: No relevant prior studies available. FINDINGS: Lung bases: Dependent atelectasis. Heart: Mild pericardial effusion. Cardiomegaly. ABDOMEN: Liver: Unremarkable. Gallbladder and bile ducts: Unremarkable. No calcified stones. No ductal dilation. Pancreas: Mild atrophy of the pancreas. No ductal dilation. Spleen: Unremarkable. No splenomegaly. Adrenals: Unremarkable. No mass. Kidneys and ureters: No hydronephrosis. No nephrolithiasis. No definite obstructive uropathy. Stomach and bowel: Diverticulosis, without acute diverticulitis. No small bowel obstruction. PELVIS: Appendix: No secondary signs of acute appendicitis. Bladder: Mild wall thickening of the urinary bladder, likely secondary to underdistention however, correlate clinically with urinalysis if there is concern for cystitis. No stones. Reproductive: Unremarkable as visualized. ABDOMEN and PELVIS: Intraperitoneal space: Unremarkable. No free air. No significant fluid collection. Bones/joints: Degenerative changes of the spine with levoconvex scoliosis. Severe, chronic appearing compression fracture of L1. Mild retropulsion of the superior endplate which contributes to low-grade spinal canal stenosis. No dislocation. Soft tissues: Small fat-containing right inguinal hernia. Vasculature: Unremarkable. Lymph nodes: Unremarkable. No enlarged lymph nodes. Tubes, lines and devices: PEG tube in the stomach. IMPRESSION: 1. No secondary signs of acute appendicitis. 2. Mild wall thickening of the urinary bladder, likely secondary to underdistention however, correlate clinically with urinalysis if there is concern for cystitis. No hydronephrosis. No nephrolithiasis. No definite obstructive uropathy. 3. Diverticulosis, without acute diverticulitis. No small bowel obstruction. PEG tube in the stomach. 4. Severe, chronic appearing compression fracture of L1. Mild retropulsion of the superior endplate which contributes to low-grade spinal canal stenosis. 5. Mild pericardial effusion.
--- NOTE | 2020-06-30 04:11 | Coder Physician Query ---
Clarification is required for compliance, coding accuracy, and to reflect severity of illness for this patient Dear Dr. Berg Date: 06/30/20 Cardiac Rehab Nurse/CDS Name: DARI Wong Exercise your independent professional judgment when responding to query. Question asked do not imply a particular answer is desired/expected Clinical Documentation States: DATE OF ADMISSION: 06/09/2020 CHIEF COMPLAINT: Patient is a 69-year-old male who presents with chief complaint of gastrostomy tube malfunction. WBC: 06/09 - 7.3, 06/10 5.5, 06/11 10.2, 06/15 11.9 His blood cultures grew ESBL E. coli. Patient was started on antibiotics. Patient was evaluated with abdominal ultrasound to evaluate for possible source of bacteremia. Abdominal ultrasound was unremarkable other than small bilateral pleural effusions. A repeat blood culture came back negative. Final diagnoses ESBL E. coli bacteremia Mild leukocytosis Hypoxic respiratory insufficiency Sepsis Was SEPSIS present on admission? [X] Yes [] No [] Clinically undeterminable Physician signature Date Please also document in your Progress Notes and/or Discharge Summary and indicate if the condition was present on admission. APOLLO
== END 2020-06-22 02:10 | disposition expired | DRG 872 ==
LOC: EDBD 00:46 → EMR 00:50 → EDBEDREQ 01:03 → 4E 01:19 → EDBEDREQ 02:41
PROC: 0DH67UZ Insertion of Feeding Device into Stomach, Via Natural or Artificial Opening (ICD-10-PCS; principal; 2020-06-09)
DX: A41.51 Sepsis due to Escherichia coli [E. coli] (principal); K94.23 Gastrostomy malfunction; G93.49 Other encephalopathy; K94.21 Gastrostomy hemorrhage; I11.0 Hypertensive heart disease with heart failure; I50.9 Heart failure, unspecified; L89.92 Pressure ulcer of unspecified site, stage 2; Q90.9 Down syndrome, unspecified; Y83.3 Surgical operation with formation of external stoma as the cause of abnormal reaction of the patient, or of later complication, without mention of misadventure at the time of the procedure; Y92.129 Unspecified place in nursing home as the place of occurrence of the external cause; F79 Unspecified intellectual disabilities; S06.5X9S Traumatic subdural hemorrhage with loss of consciousness of unspecified duration, sequela; Z86.73 Personal history of transient ischemic attack (TIA), and cerebral infarction without residual deficits; R13.10 Dysphagia, unspecified; E78.00 Pure hypercholesterolemia, unspecified; G40.909 Epilepsy, unspecified, not intractable, without status epilepticus; Z88.2 Allergy status to sulfonamides; I45.10 Unspecified right bundle-branch block; X58.XXXS Exposure to other specified factors, sequela; Z79.82 Long term (current) use of aspirin; Q24.9 Congenital malformation of heart, unspecified; R09.02 Hypoxemia; L89.152 Pressure ulcer of sacral region, stage 2; L30.8 Other specified dermatitis; R32 Unspecified urinary incontinence; Z66 Do not resuscitate; R50.9 Fever, unspecified; R06.03 Acute respiratory distress
CPT/HCPCS: 36415; 71045; 74018; 74176; 76700; 80048; 80053; 82607; 82746; 83540; 83550; 83690; 85007; 85025; 87040; 87181; 94640; 99285; J7620